=== PATIENT | female | born 1950 | race Caucasian/White ===

== ENCOUNTER 2019-09-13 12:46 | Inpatient (IN) | payer OTHER ==
--- OUTSIDE RECORDS SUMMARY | 2019-09-13 12:53 | XMS REPORT ---
:1950 [facility] Address [address] [place] [address] Dr. Mosley [address] [place] [id number] Care Team Providers Name Role Phone Unavailable Unavailable Unavailable Problems This patient has no known problems. Allergies, Adverse Reactions, Alerts This patient has no known allergies or adverse reactions. Medications This patient has no known medications.
[2019-09-13 13:34] VITALS: BMI 42.5
--- NOTE | 2019-09-13 14:05 | RAD REPORT ---
EXAM DESCRIPTION: RAD - Chest Single View - 09/13/2019 1:56 pm CLINICAL HISTORY: pre op, humerus fracture pending surgical repair TECHNIQUE: AP portable chest image was obtained 09/13/2019 1:56 pm . FINDINGS: Lungs are clear. Heart and vasculature are normal. No measurable pleural effusion and no p neumothorax. No acute bony abnormality seen. No acute aortic findings suspected. IMPRESSION: No acute cardiopulmonary process.
[2019-09-13 14:45] LABS: Absolute Lymphocytes (CBC) 1.4 K/uL (0.7-4.9); Basophils % 0.3 % (0-1.3); Lymphocytes % 15.8 % (15.3-44.8); RBC Red Blood Cell Count 3.55 M/uL (3.86-4.86)
[2019-09-13 14:54] LABS: Protime INR 1.56
[2019-09-13 14:59] LABS: Potassium 3.9 mmol/L (3.5-5.1)
[2019-09-13] MEDS: D5W 1,000 ML IV SCH (15:56)
[2019-09-13] MEDS ORDERED: CYCLOBENZAPRINE HCL PO PRN (16:58)
[2019-09-13] MEDS: HYDROCODONE/APAP 7.5/325 MG TAB PO SCH ×2 (17:00→20:30)
[2019-09-13] MEDS ORDERED: CYCLOBENZAPRINE 10 MG TAB PO PRN (17:41)
[2019-09-13] MEDS: CEFAZOLIN/SWI 1gm 1 GM/10 ML SYR IV SCH (18:01)
[2019-09-13] MEDS: TRAMADOL HCL 50 MG TAB PO SCH (20:30)
[2019-09-13] MEDS: ACEBUTOLOL HCL PO SCH (20:34)
[2019-09-13] MEDS: SILDENAFIL CITRATE 20 MG TABLET PO SCH (20:34)
--- NOTE | 2019-09-13 20:47 | CON ---
Date of Consultation: 09/13/[address] Durham's service on 09/13/2019. I saw the patient on 09/13/2019. Reason For Consultation: Cardiac clearance for humerus fracture. The surgery is to be done by Dr. Torsten becerra. History Of Present Illness: Ms. Morin is a 68-year-old woman. She normally sees Dr. Machado, has nolasco d a documented past medical history of severe pulmonary hypertension. She also has a history of hype rtension. She has had atrial fibrillation in the past that has resolved. Her last echocardiogram in August 2017, showed severe pulmonary hypertension. A right heart catheterization in 2014, showed rig ht ventricular systolic pressure of 90 mmHg. Patient has been placed on sildenafil 20 mg 3 times a d ay since 2014 and has done well, symptomatically speaking. Unfortunately, she has a humerus fracture that needs surgery. I was asked to clear her. She denied chest pain. Has baseline shortness of br eath. Denied PND, orthopnea, pedal edema, palpitations, or syncope. She has held her Xarelto since 1 p.m. yesterday. Allergies: SHE HAS ALLERGIES TO CODEINE AND BACTRIM. Review of Systems: Negative. Social History: Negative. Family History: Negative. Medications: Xanax, acebutolol, Lasix, Cozaar, Xarelto, and sildenafil. Physical Examination: Vital Signs: Blood pressure was 94/46, heart rate was 62. HEENT: Negative. Neck: Supple. No bruit. Chest: Clear. Cardiac: Revealed regular rhythm and rate, tricuspid regurgitation murmur. Abdomen: Benign. Extremities: Revealed no clubbing, cyanosis, or edema. Diagnostic Data: Hemoglobin was 10.2. Rest of the blood work seems to be unremarkable. Impression And Plan: A patient with severe pulmonary hypertension, last echocardiogram a year ago, w ould like to get another echocardiogram to see what her right ventricular systolic pressure is like. If she has severe pulmonary hypertension, she would be considered high risk for surgery, mostly from anesthesia and intubation. I will discuss the case further with Dr. Ferro and Dr. Durham. Her atrial fibrillation is well controlled. She is on Xarelto that has been held since 1 p.m. yesterday, preferred that she has had it held for about 48 hours prior to surgery. Her blood pressure is fairl y well controlled. She is only mildly anemic. We will continue to follow her. NEIL/DESMOND Voice ID: [id number] Report ID: [id number]
[2019-09-13] MEDS: ALPRAZOLAM 1 MG TABLET PO PRN (21:48)
[2019-09-14] MEDS: CEFAZOLIN/SWI 1gm 1 GM/10 ML SYR IV SCH ×3 (00:06→17:13)
[2019-09-14] MEDS: D5W 1,000 ML IV SCH ×3 (02:28→13:32)
[2019-09-14 04:34] LABS: Absolute Lymphocytes (CBC) 2.1 K/uL (0.7-4.9); Basophils % 0.6 % (0-1.3); Lymphocytes % 26.2 % (15.3-44.8); MPV 8.1 fL (7.6-11.3); RBC Red Blood Cell Count 3.01 M/uL (3.86-4.86)
[2019-09-14 04:42] LABS: Potassium 3.5 mmol/L (3.5-5.1)
[2019-09-14 05:30] LABS: Urine Appearance CLEAR; Urine Bilirubin NEGATIVE (NEG); Urine Blood NEGATIVE (NEG); Urine Color YELLOW; Urine Glucose NEGATIVE (NEG); Urine Protein NEGATIVE (NEG); Urine Urobilinogen 0.2 mg/dL (0.2-1.0)
[2019-09-14 05:33] LABS: Urine Microscopic Reflex ORDER UMIC
[2019-09-14 05:57] LABS: Urine Bacteria <20 /HPF (<20); Urine Culture Reflex Order REFLEXED; Urine RBC <5 /HPF (NONE SEEN)
[2019-09-14] MEDS: ACEBUTOLOL HCL PO SCH ×2 (09:00→21:00)
[2019-09-14] MEDS: GLUCOSAMINE HCL PO SCH (09:00)
[2019-09-14] MEDS ORDERED: HOME MED 1 EA UNK (Ascorbic Acid [Vitamin C] 1,000 MG) PO SCH (09:00)
[2019-09-14] MEDS: TRAMADOL HCL 50 MG TAB PO SCH ×3 (10:18→21:22)
[2019-09-14] MEDS: HYDROCODONE/APAP 7.5/325 MG TAB PO SCH ×4 (10:18→21:22)
[2019-09-14] MEDS: LOSARTAN POTASSIUM 50 MG TABLET PO SCH (10:19)
[2019-09-14] MEDS: FUROSEMIDE 40 MG TABLET PO SCH (10:19)
[2019-09-14] MEDS: SILDENAFIL CITRATE 20 MG TABLET PO SCH ×3 (10:19→21:00)
[2019-09-14] MEDS: ASCORBIC ACID 500 MG TABLET PO SCH (10:20)
--- NOTE | 2019-09-14 10:24 | ECHO ---
HEIGHT: 5 ft 1 in WEIGHT: 225 lb 0 oz DATE OF STUDY: 09/14/[address]: Harsha Israel MD 2-DIMENSIONAL: YES M.MODE: YES DOPPLER: YES COLOR FLOW: YES TDS: YES PORTABLE: NO DEFINITY: NO BUBBLE STUDY: NO DIAGNOSIS: CONGESTIVE HEART FAILURE, PUMONARY HYPERTENSION CARDIAC HISTORY: CATHERIZATION: NO SURGERY: NO PROSTHETIC VALVE: NO PACEMAKER: NO MEASUREMENTS (cm) DIASTOLIC (NORMALS) SYSTOLIC (NORMALS) IVSd 1.5 (0.6-1.2) LA Diam 4.0 (1.9-4.0) LVEF 64% LVIDd 3.7 (3.5-5.7) LVIDs 2.4 (2.0-3.5) %FS 34% LVPWd 1.3 (0.6-1.2) Ao Diam (2.0-3.7) 2 DIMENSIONAL ASSESSMENT: RIGHT ATRIUM: NORMAL LEFT ATRIUM: NORMAL RIGHT VENTRICLE: NORMAL LEFT VENTRICLE: LEFT VENTRICULAR HYPERTROPHY TRICUSPID VALVE: NORMAL MITRAL VALVE: NORMAL PULMONIC VALVE: NORMAL AORTIC VALVE: NORMAL PERICARDIAL EFFUSION: NONE AORTIC ROOT: NORMAL LEFT VENTRICULAR WALL MOTION: NORMAL DOPPLER/COLOR FLOW: MILD TRICUSPID REGURGITATION. RIGHT VENTRICULAR SYSTOLIC PRESSURE 50mmHg. COMMENTS: MODERATE PULMONARY HYPERTENSION. NORMAL LEFT VENTRICULAR FUNCTION. LEFT VENTRICULAR HYPERTROPHY. TECHNOLOGIST: Tommy BARRY
--- NOTE | 2019-09-14 11:36 | P.CNS ---
Date of Consult: 09/14/19 Reason for Consult: Preoperative clearance history of pulmonary hypertension Chief Complaint: Right elbow fracture History of Present Illness: Patient is 68 years of age well known to me with a history of pulmonary hypertension she has been on sildenafil for the past 7 years as been done very id and relatively well tolerated well the ambulatory apparently she fell and fractured her left elbow no x-ray reports in the system patient was seen at the [facility] dose emergency room according to the was sitting as does side she has considerably improved functional status has improved is not on any oxygen echocardiogram also seems to have improved there is no evidence of right ventricular dilatation patient is very apprehensive and does her tendency Allergies codeine Allergy (Verified 09/19/14 09:49) Itching sulfamethoxazole [From Bactrim] Allergy (Verified 09/19/14 09:48) Hives/Rash trimethoprim [From Bactrim] Allergy (Verified 09/19/14 09:48) Hives/Rash Home Medications: ALPRAZolam [Alprazolam] 1 tab PO TID PRN 09/13/19 Acebutolol HCl 1 cap PO BID 09/13/19 Ascorbic Acid [Vitamin C] 1,000 mg PO DAILY 09/13/19 Cyclobenzaprine HCl [Flexeril] 1 tab PO QID PRN 09/13/19 Furosemide 1 tab PO DAILY 09/13/19 Glucosamine HCl 1 tab PO DAILY 09/13/19 Hydrocodone/Acetaminophen [Hydrocodone-Acetamin 7.5-325] 1 tab PO QID 09/13/19 Losartan Potassium [Cozaar*] 1 tab PO DAILY 09/13/19 Rivaroxaban [Xarelto] 1 tab PO DAILY 09/13/19 Sildenafil Citrate [Revatio*] 1 tab PO TID 09/13/19 traMADol HCL [Ultram*] 2 tab PO TID 09/13/19 - Past Medical/Surgical History -: Pulmonary hypertension -: Atrial fibrillation - Social History Smoking Status: Never smoker Alcohol use: No CD- Drugs: No Caffeine use: No Review of Systems General: Weakness Musculoskeletal: Other, As per HPI (Patient also has discomfort in a left leg since the fall) Physical Examination Temp Pulse Resp BP Pulse Ox 97.3 F 67 18 120/60 96 09/14/19 08:00 09/14/19 10:19 09/14/19 10:18 09/14/19 10:19 09/14/19 10:18 General: Alert, Oriented x3 HEENT: Atraumatic Neck: Supple Cardiovascular: Edema, Irregular heart rate/rhythm Gastrointestinal: Normal bowel sounds, Soft and benign Musculoskeletal: Other (Patient's left arm in the sling is she has got a bruise in the left tibial region) Laboratory Data (last 24 hrs) 09/14/19 04:19: Sodium 139, Potassium 3.5, BUN 19 H, Creatinine 0.93, Glucose 111 H 09/14/19 04:19: WBC 8.1, Hgb 8.6 L, Hct 26.0 L D, Plt Count 170 09/13/19 14:34: Sodium 141, Potassium 3.9, BUN 21 H, Creatinine 0.92, Glucose 135 H 09/13/19 14:34: PT 18.2 H, INR 1.56, APTT 40.1 H 09/13/19 14:34: WBC 9.1 D, Hgb 10.2 L D, Hct 31.0 L D, Plt Count 204 - Problems (1) Pulmonary hypertension Current Visit: Yes Status: Acute Plan: Patient is 68 years of age had a fracture of the left elbow requiring surgical operation as far as her hemodynamics are consent she is really very stable requiring oxygen echocardiogram does not show right ventricular dilatation and finger pulmonary hypertension is improved over the past 7 years since I have seen her with sildenafil patient also has atrial fibrillation patient is mildly anemic otherwise labs unremarkable patient's chest x-rays clear I have discussed with the patient the presence of her I think she has moderate to high risk in view of for morbid obesity underlying AFib and pulmonary hypertension but she is very stable right now not requiring oxygen patient at baseline is ambulatory and has improved over the nurse I think she is stable to undergo surgery the general anesthesia at then local block discuss with Dr. Durham vital signs stable oxygenation satisfactory hold sildenafil until after these surgeries complete
[2019-09-14] MEDS: ALPRAZOLAM 1 MG TABLET PO PRN ×2 (11:42→21:23)
--- NOTE | 2019-09-14 12:25 | EKG ---
Test Date: 2019-09-13 Test Time: 15:27:54 Screedman: RAMSEY MEASUREMENT RESULTS: Intervals: Rate: 67 AK: QRSD: 92 QT: 446 QTc: 471 Stout: P: AK: QRS: 67 T: 114 INTERPRETIVE STATEMENTS: Atrial fibrillation RSR' or QR pattern in V1 suggests right ventricular conduction delay Nonspecific T wave abnormality, probably digitalis effect Prolonged QT Abnormal ECG Compared to ECG 09/19/2014 10:04:33 T-wave abnormality now present Prolonged QT interval now present Electronically Signed On 09-14-19 12:24:40 CDT by Harsha Israel
--- NOTE | 2019-09-14 14:03 | PN ---
Date of Progress Note: 09/13/2019 Subjective: I had seen Ms. Morin on 09/13/2019 for a cardiac clearance because of severe pulmonary hypertension. Patient had been taking sildenafil for approximately 5 years now. She had come in wit h a humerus fracture. Dr. Webb was awaiting our recommendation regarding surgery and clearance. She is asymptomatic from a cardiovascular standpoint. Echocardiogram, which was done today reveale d a right ventricular systolic pressure of 50 mmHg. The last one in 2014 that I knew of was 90 mmHg. This obviously puts her out of much lower risk for perioperative mortality. The case was discussed with Dr. Ferro. I think surgery will be proceeding today. We will continue to follow her. NEIL/DESMOND Voice ID: [id number] Report ID: [id number]
[2019-09-14] MEDS ORDERED: D5W 1,000 ML IV SCH (17:00)
[2019-09-15] MEDS: CEFAZOLIN/SWI 1gm 1 GM/10 ML SYR IV SCH ×3 (00:37→17:00)
[2019-09-15 05:45] LABS: Absolute Lymphocytes (CBC) 1.6 K/uL (0.7-4.9); Basophils % 0.3 % (0-1.3); Hematocrit 24.6 % (36.0-45.0); Lymphocytes % 19.2 % (15.3-44.8); MPV 7.9 fL (7.6-11.3); RBC Red Blood Cell Count 2.84 M/uL (3.86-4.86)
[2019-09-15 05:55] LABS: Potassium 3.5 mmol/L (3.5-5.1)
[2019-09-15] MEDS: HYDROCODONE/APAP 7.5/325 MG TAB PO SCH ×4 (08:43→21:24)
[2019-09-15] MEDS: GLUCOSAMINE HCL PO SCH (08:43)
[2019-09-15] MEDS: ASCORBIC ACID 500 MG TABLET PO SCH (08:43)
[2019-09-15] MEDS: LOSARTAN POTASSIUM 50 MG TABLET PO SCH (08:43)
[2019-09-15] MEDS: FUROSEMIDE 40 MG TABLET PO SCH (08:43)
[2019-09-15] MEDS: ACEBUTOLOL HCL PO SCH ×2 (08:43→21:00)
[2019-09-15] MEDS: SILDENAFIL CITRATE 20 MG TABLET PO SCH ×3 (08:43→21:26)
[2019-09-15] MEDS: TRAMADOL HCL 50 MG TAB PO SCH ×3 (08:43→21:25)
[2019-09-15] MEDS ORDERED: LIDOCAINE 1% MPF 5 ML VIAL ONE (12:11)
[2019-09-15] MEDS ORDERED: FENTANYL CITR 100 MCG/2 ML ONE (12:11)
[2019-09-15] MEDS ORDERED: ETOMIDATE 20 MG/10 ML VIAL IV ONE (12:11)
[2019-09-15] MEDS ORDERED: Ringers Lactate 1,000 ML IV ONE (12:17)
[2019-09-15] MEDS ORDERED: CEFAZOLIN/SWI 1gm 1 GM/10 ML SYR ONE (12:36)
--- NOTE | 2019-09-15 13:01 | PN ---
Ms. Morin has a history of severe pulmonary hypertension, has been cared for by Dr. Ferro and Dr. Machado in the past. She came in with a humeral fracture on the left side. Echocardiogram, which wa s done yesterday, showed a right ventricular systolic pressure of 50 mmHg, which has improved dramati marixa from her initial 90 mmHg about 4 years ago. She takes sildenafil. I discussed the case with Marietta Ferro and apparently there is a consensus for her to go to surgery. She has not gone through s urgery yet. No cardiopulmonary symptoms. She continues to have left elbow pain. Apparently, there is a plan to go to surgery today under local axillary block and we will continue to follow her afterw ards. NEIL/DESMOND Voice ID: [id number] Report ID: [id number]
[2019-09-15] MEDS ORDERED: propofoL 200 MG/20 ML VIAL IV ONE (13:27)
[2019-09-15] MEDS ORDERED: ONDANSETRON 4 MG/2 ML VIAL ONE (14:03)
--- NOTE | 2019-09-15 14:28 | P.BOP ---
Preoperative diagnosis: left distal humerus open fracture (delayed rx) Postoperative diagnosis: same Primary procedure: I&D of open distal humerus fracture Estimated blood loss: 20ccs Anesthesia: General Complications: None Transferred to: Recovery Room
[2019-09-15] MEDS: MORPHINE 4 MG/ML SYR ONE ×7 (14:54→15:35)
[2019-09-15] MEDS ORDERED: PROMETHAZINE INJ 25 MG/ML AMP ONE (15:03)
--- NOTE | 2019-09-15 20:06 | PN ---
Date of Progress Note: 09/15/2019 The patient is seen in the postoperative period. When seen back in the room, seems to be quite comfo rtable. Vital signs are stable. Atrial fibrillation rhythm with controlled rate. We will hold the Xarelto until the a.m. and see if her H and H are stabilized. Continue to monitor. HR/MODL Voice ID: [id number] Report ID: [id number]
--- NOTE | 2019-09-15 21:00 | HP ---
Date of Admission: 09/13/2019 Chief Complaint: Fractured arm, open. History Of Present Illness: Patient fell at home, was taken to a local urgent care. Immediate repai r and closure were done since it was an open wound. It was felt she would need more intensive care a nd suggested she go to . Patient declined and opted to go locally. She was then seen by h orthopedic surgeon, who called me and felt that she would require surgical repair due to her under lying conditions, requested clearances. Past Medical History: Patient has had significant pulmonary hypertension over the past 5 or 6 years, has been treated by both Pulmonology and Cardiology for this, and associated with hypertension and a trial fibrillation. The latter has been cleared. She has been on for a number of years n ow and has been relatively stable. According to the patient's , however, she had a moderate a mount of bleeding at the time of the recent trauma. The pulmonary hypertension will be re-evaluated prior to the surgical procedure. Blood pressure has been relatively stable on various medications. Social History: Nonsmoker, nondrinker. Family History: Noncontributory. Physical Examination: General: Patient is a rather obese elderly female, in mild distress with her arm in a sling and prot ective splint. Vital Signs: Stable. Head and Neck: Normocephalic. Pupils equally reactive to light and accommodation. Fundi negative. Trachea midline. Thyroid not palpable. ENT: Negative. Chest: Clear to P and A. Cardiovascular: PMI midclavicular line. Heart sounds normal. Peripheral pulses are present and equal bilaterally. Abdomen: No organomegaly. Bowel sounds present. Extremities: As mentioned, the left arm is in a splint. Lower extremities are normal. Rectal/Pelvic: Deferred. Impression: 1.Fractured humerus, open wound. 2.Hypertension, controlled. 3.Atrial fibrillation, controlled. 4.Pulmonary hypertension, medicated. Plan: Patient will be admitted, placed on IV fluids. Consultation was obtained with both Cardiology and Pulmonology and depending on their evaluation, the patient will probably be cleared for surgery the next day or so since she Xarelto for at least 24-48 hours. She was also seen by ortho pedic surgeon while in the hospital. HR/MODL Voice ID: [id number]
--- NOTE | 2019-09-15 21:07 | PN ---
Date of Progress Note: 09/14/2019 Patient states she is somewhat comfortable on her pain regimen. Hemoglobin has dropped some and she did look rather pale. However, I think her baseline is in the 10 range and possibly secondary to blo od loss dropped down to the 8+ range. She was seen by Cardiology. Echo was done. The pulmonary hyp ertension has marked improvement, even though she is at risk obviously. The repair I think supersede s the risk factor at this time. This is also confirmed by Pulmonology. She will therefore be someti me during the day at least for the surgical repair by Dr. Webb. HR/MODL Voice ID: [id number] Report ID: [id number]
[2019-09-15] MEDS: ALPRAZOLAM 1 MG TABLET PO PRN (21:25)
--- NOTE | 2019-09-15 21:43 | OP ---
Date of Procedure: 09/15/2019 Surgeon: See Webb MD Preoperative Diagnosis: Left complex intra-articular distal humerus fracture, which is open with del ayed treatment. Postoperative Diagnosis: Left complex intra-articular distal humerus fracture, which is open with de layed treatment. Procedure: Left distal humerus open fracture irrigation and sharp debridement including knife, sciss ors, rongeurs. Estimated Blood Loss: 20 cc. Complications: No complications. Specimens: No pathology specimens. Indications For Operation: Ms. Morin is a 68-year-old female who unfortunately has a great number o f medical conditions. She was seen and examined in the outside emergency facility where she was diag nosed with open distal humerus fracture. The advise was for her to go immediately to a tertiary care center for irrigation and debridement and treatment of the fracture. Patient's family did not agree with this plan and decided instead to have this sewn and place in a splint and follow up with an ort hopedist. She came to see me the next day with her x-rays and her elbow was examined as well as her x-rays, which demonstrated a comminuted intra-articular distal humerus fracture consistent with a sup racondylar and intercondylar fracture. Also, there was active bleeding from her posterolateral aspec t of her arm indicating an open fracture. I discussed with her that this problem is gently treated o peratively, may be considered an urgent or emergent process. She says that she understands this, but she has had a spinning mule tender and a pier master who told her that if she had ever gone to sleep that she would not be able to wake up and that she did not want an operation of any kind. I asked her if we could speak with those physicians, she says that one is retired and the other she does not know, b ut she does have a primary care physician in the area and he is called. At this time, decided to adm it her, take her off her blood thinners, and have Cardiology see her with whatever testing is due for possibility of irrigation and debridement of her elbow. This is what has happened. She has since b een cleared, seen by Anesthesia, also by Pulmonology, Cardiology, and her primary care physician. Al l risks, benefits, and alternatives of this procedure have been discussed with her. We did discuss f urther, but not attempt any reduction or fixation of the fracture and that our goal at this time is t o do good irrigation and debridement. If she does not get infected and is continuing to be a problem , she may be able to move forward with total elbow in the future; however, having an open fracture fo r 3 days and then placing until the elbow is probably not the until we can ensure that she has not developed any osteomyelitis. She says she understands things and presented. Description Of Procedure: Patient was taken to operating room, placed in supine position. General a nesthesia was obtained by Anesthesia staff. Following this, she was then rolled right side down on a witt bag. Her left upper extremity was then prepped and draped in usual sterile fashion procedure. Following this, her sutures were removed that she had placed. There were also some Vicryl sutures m ore deeply. Once these were removed, approximately 1 L of sterile saline was used just superficially on the wound. Finger was then placed in the wound and the fracture was easily identified. The ends of the open wound were then extended to allow for best visualization. Debridement was undertaken us ing a rongeur, knife and any blood clot or any foreign appearing material was removed. This was foll owed by further irrigation more deeply in the wound bed in the region of the intra-articular portion of the elbow. Following this, the wound edges were trimmed and it was then closed using nylon suture s. Patient was then placed in extremely well-padded sterile dressing as well as posterior splint. S he was awakened, taken to recovery room in good condition. No complications. SE/MODL Voice ID: [id number] Report ID: [id number]
[2019-09-16] MEDS: CEFAZOLIN/SWI 1gm 1 GM/10 ML SYR IV SCH ×3 (00:31→17:25)
[2019-09-16 05:23] LABS: Absolute Lymphocytes (CBC) 1.4 K/uL (0.7-4.9); Lymphocytes % 16.4 % (15.3-44.8); MPV 7.8 fL (7.6-11.3); RBC Red Blood Cell Count 2.62 M/uL (3.86-4.86)
[2019-09-16 05:41] LABS: BUN Blood Urea Nitrogen 13 mg/dL (7-18); Bicarbonate 34 mmol/L (21-32); Glucose Level 94 mg/dL (74-106); Potassium 3.8 mmol/L (3.5-5.1); Sodium Level 143 mmol/L (136-145)
[2019-09-16] MEDS: ACEBUTOLOL HCL PO SCH ×2 (09:00→21:00)
[2019-09-16] MEDS: GLUCOSAMINE HCL PO SCH (09:00)
[2019-09-16] MEDS: HYDROCODONE/APAP 7.5/325 MG TAB PO SCH ×4 (09:23→21:05)
[2019-09-16] MEDS: SILDENAFIL CITRATE 20 MG TABLET PO SCH ×3 (09:24→21:06)
[2019-09-16] MEDS: FUROSEMIDE 40 MG TABLET PO SCH (09:24)
[2019-09-16] MEDS: TRAMADOL HCL 50 MG TAB PO SCH ×3 (09:24→21:05)
[2019-09-16] MEDS: ASCORBIC ACID 500 MG TABLET PO SCH (09:24)
[2019-09-16] MEDS: LOSARTAN POTASSIUM 50 MG TABLET PO SCH (09:25)
[2019-09-16] MEDS ORDERED: NA CHLORIDE 0.9% 250 ML ONE (11:44)
--- NOTE | 2019-09-16 12:43 | P.PN ---
Subjective Date of Service: 09/16/19 Chief Complaint: Right elbow fracture Subjective: Improving (Patient is doing better currently receiving a blood transfusion status post surgery of the left elbow) Review of Systems General: Weakness Respiratory: Shortness of Breath Physical Examination - Vital Signs Temperature: 97.4 F Blood Pressure: 125/58 Pulse: 78 Respirations: 18 Pulse Ox (%): 99 - Physical Exam General: Alert, In no apparent distress, Oriented x3 Respiratory: Clear to auscultation bilaterally, Diminished Cardiovascular: Normal pulses, Normal S1 S2 - Studies Laboratory Data (last 24 hrs) 09/16/19 : Hgb Cancelled 09/16/19 17:00: Hgb Cancelled, Hct Cancelled 09/16/19 05:07: Sodium 143, Potassium 3.8, BUN 13, Creatinine 0.65, Glucose 94 09/16/19 05:07: WBC 8.2, Hgb 7.6 L*, Hct 23.0 L, Plt Count 185 Microbiology Data (last 24 hrs): 09/14/19 05:00 Clean Catch Urine Carpio Count - Final 09/14/19 05:00 Clean Catch Urine - Final No growth. Assessment & Plan - Problems (Diagnosis) (1) Pulmonary hypertension Current Visit: Yes Status: Acute Plan: Patient is status post surgery doing much better seeing a blood transfusion Francesca some tenderness in the left elbow region resume sildenafil hemodynamically stable
[2019-09-16 15:16] LABS: Hematocrit 24.8 % (36.0-45.0)
[2019-09-16] MEDS: ALPRAZOLAM 1 MG TABLET PO PRN (21:05)
[2019-09-17] MEDS: CEFAZOLIN/SWI 1gm 1 GM/10 ML SYR IV SCH ×2 (00:59→01:00)
[2019-09-17] MEDS ORDERED: CEPHALEXIN 250 MG CAP PO SCH (01:19)
[2019-09-17] MEDS: HYDROCODONE/APAP 7.5/325 MG TAB PO SCH ×5 (05:40→20:21)
[2019-09-17] MEDS: ASCORBIC ACID 500 MG TABLET PO SCH (08:27)
[2019-09-17] MEDS: CEPHALEXIN 500 MG CAP PO SCH ×3 (08:27→20:21)
[2019-09-17] MEDS: LOSARTAN POTASSIUM 50 MG TABLET PO SCH (08:27)
[2019-09-17] MEDS: TRAMADOL HCL 50 MG TAB PO SCH ×3 (08:27→20:20)
[2019-09-17] MEDS: FUROSEMIDE 40 MG TABLET PO SCH (08:29)
[2019-09-17] MEDS: SILDENAFIL CITRATE 20 MG TABLET PO SCH ×3 (08:34→20:22)
[2019-09-17] MEDS: ACEBUTOLOL HCL PO SCH (09:00)
[2019-09-17] MEDS: GLUCOSAMINE HCL PO SCH (09:00)
--- NOTE | 2019-09-17 09:39 | PN ---
Date of Progress Note: 09/16/2019 History: The patient has had a drop in her hemoglobin once again to 7.6 earlier this morning. We th erefore felt she would benefit from a unit of blood. This was obtained, however, there was marked di fficulty with access and approximately 50 mL were injected prior to the transfusion being stopped as there was no further flow. However, the IV antibiotic could still be given in a flush. The possibil ity of a PICC line was considered. However, the H and H was repeated later in the day and was 8.1 __ in the morning when it will be repeated and then we can decide about both the PICC line and use of the Xarelto once again. Discussion was held on both these points with Cardiology and Pulmonol wil and it was agreed to wait until the morning. The only other issue developed is significant disco mfort and lack of ability to mobilize her left knee as it looked cellulitic and a marked amount of bl ood involved in this area as well. Also attributing, I think to drop in the blood count. She will b e re-evaluated and decision will be made based on her H and H in the morning. The remainder of her v ital signs are stable. Her telemetry shows atrial fibrillation with controlled rate. HR/MODL Voice ID: [id number] Report ID: [id number]
[2019-09-17] MEDS ORDERED: BISACODYL 10 MG RECTAL SUPP PR ONE ×2 (09:44→23:00)
--- NOTE | 2019-09-17 10:27 | RAD REPORT ---
EXAM DESCRIPTION: RAD - Tib Fib Left - 09/17/2019 10:18 am CLINICAL HISTORY: trauma COMPARISON: No comparisons FINDINGS: Soft tissue hematoma is present in the calf region. No fracture apparent.
--- NOTE | 2019-09-17 10:27 | RAD REPORT ---
EXAM DESCRIPTION: RAD - Knee Left 2 View - 09/17/2019 10:16 am CLINICAL HISTORY: trauma Trauma, swelling COMPARISON: Tib Fib Left dated 09/17/2019 FINDINGS: Advanced osteoarthritic changes are present involving the left knee. Soft tissue swelling is present anterior to the tibia. No fracture is evident.
--- NOTE | 2019-09-17 10:47 | RAD REPORT ---
EXAM DESCRIPTION: US - Extremity Venous Uni Ltd - 09/17/2019 10:39 am CLINICAL HISTORY: r/o dvt Leg swelling and edema. COMPARISON: No comparisons FINDINGS: Left lower extremity venous system was interrogated with Doppler technique. Normal flow, c ompressibility and augmentation was noted. There is no DVT present. IMPRESSION: No evidence of left lower extremity deep venous thrombosis.
[2019-09-17] MEDS: ALPRAZOLAM 1 MG TABLET PO PRN (10:55)
[2019-09-17 17:08] LABS: Hematocrit 24.6 % (36.0-45.0)
--- NOTE | 2019-09-17 18:05 | RAD REPORT ---
EXAM DESCRIPTION: RAD - Abdomen 1 View (KUB) - 09/17/2019 5:32 pm CLINICAL HISTORY: Abdomen pain. FINDINGS: The bowel gas pattern is unremarkable. A moderate amount of stool is present throughout th e colon No abnormal calcification is displayed
[2019-09-17] MEDS ORDERED: BISACODYL E.C. 5 MG TAB PO ONE (19:00)
[2019-09-18 06:56] LABS: Hematocrit 23.3 % (36.0-45.0)
[2019-09-18] MEDS ORDERED: ONDANSETRON 4 MG (ODT) TAB PO PRN (07:35)
[2019-09-18] MEDS ORDERED: GOLYTELY 4000 ML PO SCH (08:00)
[2019-09-18] MEDS: CEPHALEXIN 500 MG CAP PO SCH ×2 (08:40→13:24)
[2019-09-18] MEDS: TRAMADOL HCL 50 MG TAB PO SCH ×2 (08:41→13:24)
[2019-09-18] MEDS: HYDROCODONE/APAP 7.5/325 MG TAB PO SCH ×2 (08:41→13:24)
[2019-09-18] MEDS: ASCORBIC ACID 500 MG TABLET PO SCH (08:42)
[2019-09-18] MEDS: SILDENAFIL CITRATE 20 MG TABLET PO SCH (08:42)
[2019-09-18] MEDS ORDERED: BISACODYL E.C. 5 MG TAB PO PRN (09:00)
[2019-09-18] MEDS: GLUCOSAMINE HCL PO SCH (09:00)
[2019-09-18] MEDS: LOSARTAN POTASSIUM 50 MG TABLET PO SCH (10:05)
[2019-09-18] MEDS: FUROSEMIDE 40 MG TABLET PO SCH (10:08)
[2019-09-18 10:47] VITALS: O2SAT 93
[2019-09-18 11:42] VITALS: BP 97/49; TEMP 97.1
--- NOTE | 2019-09-18 12:10 | P.PN ---
Subjective Date of Service: 09/18/19 Chief Complaint: Right elbow fracture Subjective: Improving (Patient is improving hr she does have a large hematoma in the left tibial area which counts for decline in her hemoglobin difficult to obtain any venous access) Review of Systems General: Weakness Respiratory: Shortness of Breath Musculoskeletal: Leg Pain (Some pain in the of hematoma) Physical Examination - Vital Signs Temperature: 97.1 F Blood Pressure: 97/49 Pulse: 66 Respirations: 17 Pulse Ox (%): 94 - Physical Exam General: Alert, In no apparent distress, Oriented x3 Respiratory: Clear to auscultation bilaterally Cardiovascular: Irregular heart rate/rhythm Gastrointestinal: Normal bowel sounds, Soft and benign Musculoskeletal: Other (Large area of hematoma in the left tibial region and tone think it is progressing) - Studies Laboratory Data (last 24 hrs) 09/18/19 06:40: Hgb 7.8 L*, Hct 23.3 L 09/17/19 17:00: Hgb 8.1 L, Hct 24.6 L 09/17/19 17:00: Hct Cancelled Microbiology Data (last 24 hrs): 09/18/19 08:24 Stool Occult Blood - Final Assessment & Plan - Problems (Diagnosis) (1) Pulmonary hypertension Current Visit: Yes Status: Acute Plan: Patient is stable over patient is hypotensive Dc losartan Lasix and sildenafil for now she is at risk for falling due to low blood pressure (2) Atrial fibrillation Current Visit: Yes Status: Acute Plan: Xarelto is on hold discuss with cardiology regarding starting her on some aspirin been a decline in her hemoglobin which seems to be stable Qualifiers: Atrial fibrillation type: unspecified chronic Qualified Code(s): I48.20 - Chronic atrial fibrillation, unspecified; I48.2 - Chronic atrial fibrillation
[2019-09-18 13:05] LABS: Hematocrit 24.3 % (36.0-45.0)
[2019-09-18] MEDS: ALPRAZOLAM 1 MG TABLET PO PRN (13:24)
[2019-09-19] MEDS ORDERED: ASPIRIN 81 MG CHEWABLE TABLET PO SCH (09:00)
--- NOTE | 2019-09-19 14:32 | PN ---
Date of Progress Note: 09/17/2019 Subjective: The patient stabilizes as far as her general condition is concerned. However, there are some of her issues that need to be clarified prior to being discharged. The patient and family requ est at time the discharge, to return home. I think this is reasonable, providin.Her H and H remained stable along the 8 range. 2.She does finally have a bowel movement as she has been constipated and the KUB showed significant stool present. 3.She can restart her anticoagulants. We will follow this up with a plan for her constipation, repeat her H and H, and obtain a stool guaia c. If this is negative, I see no reason why she cannot be discharged probably in the a.m. HR/MODL Voice ID: [id number] Report ID: [id number]
--- NOTE | 2019-09-19 14:38 | PN ---
Date of Progress Note: 09/19/2019 Subjective: The patient has had 2 units of blood. States she does not feel that much better; dilan r, her coloring is obviously much better. I will leave the Boone in. She has some difficulty with m ovement at the present time and the hematoma, which according to the family has gone down somewhat, i s still limiting her motion considerably as well as the shoulder surgery. There was some difficulty in setting up a disposition program. I spent a good amount of time talking to her as far as his options are concerned. Meter Repairer will also be involved. At the present time, her vital si gns are stable. The pain medication regimen will be changed to what he is accustomed to giving her p rior to this surgery. She has been on this protocol for a long time and he states it has given her g ood results. The probability of a fall being secondary to the combination of the anemia and position al change is most likely. In order to prevent this, we will continue the present regimen with a burrell ge of analgesics and re-evaluate in the a.m. as far as blood pressure medication and the diuretics ar e concerned. HR/MODL Voice ID: [id number] Report ID: [id number]
== END 2019-09-18 15:13 | disposition home or self-care (01) | DRG 563 ==
LOC: 2ND 12:51
PROVIDERS: ADMIT Family Medicine; ATTEND Family Medicine
PROC: 0HDEXZZ Extraction of Left Lower Arm Skin, External Approach (ICD-10-PCS; principal; 2019-09-15 13:00)
PROC: 30233N1 Transfusion of Nonautologous Red Blood Cells into Peripheral Vein, Percutaneous Approach (ICD-10-PCS; 2019-09-16)
DX: S42.402A Unspecified fracture of lower end of left humerus, initial encounter for closed fracture (principal); I48.20 Chronic atrial fibrillation, unspecified; I10 Essential (primary) hypertension; I27.20 Pulmonary hypertension, unspecified; Z79.01 Long term (current) use of anticoagulants; Z79.899 Other long term (current) drug therapy; Z88.5 Allergy status to narcotic agent; Z88.1 Allergy status to other antibiotic agents; W18.30XA Fall on same level, unspecified, initial encounter
CPT/HCPCS: 36415; 71045; 74018; 80048; 81003; 81015; 82274; 85014; 85018; 85025; 85610; 85730; 86850; 86900; 86901; 87086; 87088; 93005; 93306; 93971; 97161; 97530; J0690; J2405; J2550; J2704; J3010; J7030; J7120; P9016

== ENCOUNTER 2019-09-18 18:15 | Inpatient (IN) | payer OTHER ==
--- OUTSIDE RECORDS SUMMARY | 2019-09-18 18:18 | XMS REPORT ---
:1950 [facility] Address [address] [place] [address] Dr. Mosley [address] [place] [id number] Care Team Providers Name Role Phone Unavailable Unavailable Unavailable Problems This patient has no known problems. Allergies, Adverse Reactions, Alerts This patient has no known allergies or adverse reactions. Medications This patient has no known medications.
[2019-09-18] MEDS ORDERED: PANTOPRAZOLE 40 MG INJ ONE (18:50)
[2019-09-18] MEDS ORDERED: NA CHLORIDE 0.9% 1,000 ML ONE (18:50)
--- NOTE | 2019-09-18 19:04 | EDPHYS ---
Physician Documentation [facility] Name: Kati Morin Age: 68 yrs Sex: Female : 1950 Arrival Date: 09/18/2019 Time: 18:14 Bed 15 Private MD: ED Physician Td Patricio HPI: 09/17 18:42 This 68 yrs old Female presents to ER via EMS with complaints of Fall Injury. prachi 18:42 This 68 yrs old Female presents to ER via EMS with complaints of Fall Injury. prachi Historical: - Allergies: 18:21 Codeine; bp 18:21 sulfamethoxazole-trimethoprim; bp - Home Meds: 18:30 Lasix 20 mg Oral tab 1 tab once daily [Active]; alprazolam 1 mg Oral tab 1 tab 3 times bp per day [Active]; acebutolol 200 mg Oral cap 1 cap 2 times per day [Active]; ascorbic acid (vitamin C) 1,000 mg tab [Active]; Flexeril 10 mg Oral tab 1 tab 3 times per day [Active]; Glucosamine 500 mg oral tab [Active]; [place] 7.5-325 mg Oral tab 1 tab every 6 hours [Active]; losartan 50 mg oral tab 1 tab once daily [Active]; rivaroxaban oral oral 1 tab [Active]; Revatio 20 mg oral tab 1 tab 3 times per day [Active]; - PMHx: 18:30 Hypertension; bp 18:38 Atrial Fib; bp - Immunization history:: Adult Immunizations up to date. - Social history:: Smoking status: Patient denies any tobacco usage or history of. ROS: 18:45 Constitutional: Negative for fever, chills, and weight loss, Eyes: Negative for injury, prachi pain, redness, and discharge, ENT: Negative for injury, pain, and discharge, Neck: Negative for injury, pain, and swelling, Cardiovascular: Negative for chest pain, palpitations, and edema, Abdomen/GI: Negative for abdominal pain, nausea, vomiting, diarrhea, and constipation, Back: Negative for injury and pain, : Negative for injury, bleeding, discharge, and swelling, Skin: Negative for injury, rash, and discoloration, Psych: Negative for depression, anxiety, suicide ideation, homicidal ideation, and hallucinations, Allergy/Immunology: Negative for hives, rash, and allergies, Endocrine: Negative for neck swelling, polydipsia, polyuria, polyphagia, and marked weight changes, Hematologic/Lymphatic: Negative for swollen nodes, abnormal bleeding, and unusual bruising. 18:45 Respiratory: Positive for shortness of breath. 18:45 MS/extremity: Positive for decreased range of motion, pain, tenderness, of the anterior aspect of right shoulder and posterior aspect of right shoulder. Exam: 18:45 Constitutional: This is a well developed, well nourished patient who is awake, alert, prachi and in no acute distress. Head/Face: Normocephalic, atraumatic. Eyes: Pupils equal round and reactive to light, extra-ocular motions intact. Lids and lashes normal. Conjunctiva and sclera are non-icteric and not injected. Cornea within normal limits. Periorbital areas with no swelling, redness, or edema. ENT: Nares patent. No nasal discharge, no septal abnormalities noted. Tympanic membranes are normal and external auditory canals are clear. Oropharynx with no redness, swelling, or masses, exudates, or evidence of obstruction, uvula midline. Mucous membranes moist. Neck: Trachea midline, no thyromegaly or masses palpated, and no cervical lymphadenopathy. Supple, full range of motion without nuchal rigidity, or vertebral point tenderness. No Meningismus. Chest/axilla: Normal chest wall appearance and motion. Nontender with no deformity. No lesions are appreciated. Cardiovascular: Regular rate and rhythm with a normal S1 and S2. No gallops, murmurs, or rubs. Normal PMI, no JVD. No pulse deficits. Abdomen/GI: Soft, non-tender, with normal bowel sounds. No distension or tympany. No guarding or rebound. No evidence of tenderness throughout. Back: No spinal tenderness. No costovertebral tenderness. Full range of motion. Skin: Warm, dry with normal turgor. Normal color with no rashes, no lesions, and no evidence of cellulitis. MS/ Extremity: Pulses equal, no cyanosis. Neurovascular intact. Full, normal range of motion. Neuro: Awake and alert, GCS 15, oriented to person, place, time, and situation. Cranial nerves II-XII grossly intact. Motor strength 5/5 in all extremities. Sensory grossly intact. Cerebellar exam normal. Normal gait. Psych: Awake, alert, with orientation to person, place and time. Behavior, mood, and affect are within normal limits. 18:45 Respiratory: mild respiratory distress is noted, Respirations: labored breathing, that is mild, Breath sounds: decreased breath sounds, that are mild. 18:45 Musculoskeletal/extremity: Extremities: noted in the anterior aspect of right shoulder and posterior aspect of right shoulder: decreased ROM, pain, swelling, noted in the left chávez: pain, swelling, tenderness. Vital Signs: 18:15 BP 106 / 60; Pulse 95; Resp 18; Temp 98.5; Pulse Ox 94% on R/A; bp 20:07 BP 118 / 57; Pulse 78; Resp 13; Temp 98; Pulse Ox 100% on 3 lpm NC; rr5 20:45 BP 122 / 69; Pulse 77; Resp 18; Temp 98; Pulse Ox 99% on 3 lpm NC; rr5 Procedures: 19:47 Peripheral line: by aseptic technique a peripheral line was placed in the left external prachi jugular vein. MDM: 18:20 Patient medically screened. [facility] 19:38 ED course: dr lynch ask to hold the xarelto. [facility] 19:38 Data reviewed: vital signs, nurses notes, lab test result(s), EKG, radiologic studies, [facility] CT scan, plain films. 09/17 18:42 Order name: Basic Metabolic Panel; Complete Time: 19:36 [facility] 09/17 18:42 Order name: CBC with Diff; Complete Time: 19:26 [facility] 09/17 18:42 Order name: LFT's; Complete Time: 19:36 [facility] 09/17 18:42 Order name: Magnesium; Complete Time: 19:36 [facility] 09/17 18:42 Order name: NT PRO-BNP; Complete Time: 19:36 [facility] 09/17 18:42 Order name: PT-INR; Complete Time: 19:26 [facility] 09/17 18:42 Order name: Troponin (emerg Dept Use Only); Complete Time: 19:36 [facility] 09/17 18:42 Order name: XRAY Chest (1 view); Complete Time: 19:26 [facility] 09/17 18:42 Order name: Lipase; Complete Time: 19:36 [facility] 09/17 18:42 Order name: Urine Culture [facility] 09/17 18:42 Order name: Type And Screen [facility] 09/17 19:34 Order name: Urine Dipstick--Ancillary (enter results) ks 09/17 19:48 Order name: Urine Dipstick-Ancillary; Complete Time: 19:49 [facility] 09/17 18:42 Order name: EKG; Complete Time: 18:44 [facility] 09/17 18:42 Order name: Cardiac monitoring; Complete Time: 19:30 [facility] 09/17 18:42 Order name: EKG - Nurse/Tech; Complete Time: 20:42 [facility] 09/17 18:42 Order name: IV Saline Lock; Complete Time: 20:42 [facility] 09/17 18:42 Order name: Labs collected and sent; Complete Time: 20:42 [facility] 09/17 18:42 Order name: O2 Per Protocol; Complete Time: 20:42 [facility] 09/17 18:42 Order name: Shoulder Right (2 View) XRAY; Complete Time: 19:26 [facility] 09/17 18:43 Order name: CT Traumagram (Head C Spine CAP wo con) [facility] 09/17 19:07 Order name: CONS Physician Consult [facility] 09/17 20:21 Order name: CT; Complete Time: 21:56 [facility] 09/17 18:42 Order name: O2 Sat Monitoring; Complete Time: 20:42 [facility] 09/17 18:42 Order name: Urine Dipstick-Ancillary (obtain specimen); Complete Time: 19:30 [facility] 09/17 18:42 Order name: Boone; Complete Time: 19:29 [facility] 09/17 19:27 Order name: Sling; Complete Time: 20:41 [facility] 09/17 19:27 Order name: Ice pack; Complete Time: 20:40 [facility] Administered Medications: Discontinued: NS 0.9% 1000 ml IV at 75 ml/hr continuous 18:45 Drug: NS 0.9% 1000 ml Route: IV; Rate: 75 ml/hr; Site: left jugular; bp 19:30 Follow up: Response: No adverse reaction; IV Status: Order to discontinue infusion; IV rr5 Intake: 75ml 18:45 Drug: ProTONIX 40 mg Route: IVP; Site: left jugular; bp 19:45 Follow up: Response: No adverse reaction rr5 20:20 Drug: Lovenox 40 mg Route: Sub-Q; Site: right lower abdomen; rr5 20:43 Follow up: Response: No adverse reaction rr5 20:21 Drug: Aspirin 162 mg Route: PO; rr5 20:43 Follow up: Response: No adverse reaction rr5 20:32 Drug: Lasix 40 mg {Note: left EJ.} Route: IVP; Site: Other; rr5 20:44 Follow up: Response: No adverse reaction rr5 20:35 Drug: Ancef 1 grams {Note: left EJ.} Route: IVPB; Site: Other; rr5 20:43 Follow up: Response: No adverse reaction; IV Status: Completed infusion; IV Intake: rr5 10ml ; transfer to floor Disposition: 09/18/19 19:03 Hospitalization ordered by Elroy Lynch for Inpatient Admission. Preliminary diagnosis are Fall due to bumping against object, Obesity, unspecified, Dyspnea, Pain in right shoulder, Contusion of left lower leg - large cutaneous hematoma, Atrial fibrillation and flutter, Anemia, unspecified, Nondisplaced fracture of greater tuberosity of right humerus, Unspecified combined systolic (congestive) and diastolic (congestive) heart failure, Hypoxemia, Primary pulmonary hypertension. - Bed requested for Telemetry/MedSurg (Inpatient). - Status is Inpatient Admission. rr5 - Condition is Fair. - Problem is new. - Symptoms have improved. Signatures: Dispatcher [employer] [facility] Laurie Edwards RN RN dw Anderson, Corey, MD MD cha Nieto, Roman, MD MD rn Peltier, Brian RN To Lane RN RN rr5 Corrections: (The following items were deleted from the chart) 19:13 18:44 Head C Spine MPR Wo Con+CT.RAD.BRZ ordered. [facility] 19:25 19:03 Hospitalization Ordered by Elroy Lynch MD for Inpatient Admission. Preliminary prachi diagnosis is Fall due to bumping against object; Obesity, unspecified; Dyspnea; Pain in right shoulder; Contusion of left lower leg - large cutaneous hematoma; Aplastic anemia, unspecified; Atrial fibrillation and flutter. Bed requested for Telemetry/MedSurg (Inpatient). Status is Inpatient Admission. Condition is Fair. Problem is new. Symptoms have improved. prachi 19:26 19:25 09/18/2019 19:03 Hospitalization Ordered by Elroy Lynch MD for Inpatient prachi Admission. Preliminary diagnosis is Fall due to bumping against object; Obesity, unspecified; Dyspnea; Pain in right shoulder; Contusion of left lower leg - large cutaneous hematoma; Atrial fibrillation and flutter; Anemia, unspecified; Nondisplaced fracture of greater tuberosity of right humerus. Bed requested for Telemetry/MedSurg (Inpatient). Status is Inpatient Admission. Condition is Fair. Problem is new. Symptoms have improved. prachi 19:29 19:26 09/18/2019 19:03 Hospitalization Ordered by Elroy Lynch MD for Inpatient dw Admission. Preliminary diagnosis is Fall due to bumping against object; Obesity, unspecified; Dyspnea; Pain in right shoulder; Contusion of left lower leg - large cutaneous hematoma; Atrial fibrillation and flutter; Anemia, unspecified; Nondisplaced fracture of greater tuberosity of right humerus; Unspecified combined systolic (congestive) and diastolic (congestive) heart failure. Bed requested for Telemetry/MedSurg (Inpatient). Status is Inpatient Admission. Condition is Fair. Problem is new. Symptoms have improved. prachi 19:47 19:29 09/18/2019 19:03 Hospitalization Ordered by Elroy Lynch MD for Inpatient prachi Admission. Preliminary diagnosis is Fall due to bumping against object; Obesity, unspecified; Dyspnea; Pain in right shoulder; Contusion of left lower leg - large cutaneous hematoma; Atrial fibrillation and flutter; Anemia, unspecified; Nondisplaced fracture of greater tuberosity of right humerus; Unspecified combined systolic (congestive) and diastolic (congestive) heart failure. Bed requested for Telemetry/MedSurg (Inpatient). Status is Inpatient Admission. Condition is Fair. Problem is new. Symptoms have improved. dw 20:57 19:47 09/18/2019 19:03 Hospitalization Ordered by Elroy Lynch MD for Inpatient rr5 Admission. Preliminary diagnosis is Fall due to bumping against object; Obesity, unspecified; Dyspnea; Pain in right shoulder; Contusion of left lower leg - large cutaneous hematoma; Atrial fibrillation and flutter; Anemia, unspecified; Nondisplaced fracture of greater tuberosity of right humerus; Unspecified combined systolic (congestive) and diastolic (congestive) heart failure; Hypoxemia; Primary pulmonary hypertension. Bed requested for Telemetry/MedSurg (Inpatient). Status is Inpatient Admission. Condition is Fair. Problem is new. Symptoms have improved. prachi
--- NOTE | 2019-09-18 19:04 | ER ---
Nurse's Notes [facility] Name: Kati Morin Age: 68 yrs Sex: Female : 1950 Arrival Date: 09/18/2019 Time: 18:14 Bed 15 Private MD: Diagnosis: Fall due to bumping against object;Obesity, unspecified;Dyspnea;Pain in right shoulder;Contusion of left lower leg-large cutaneous hematoma;Atrial fibrillation and flutter;Anemia, unspecified;Nondisplaced fracture of greater tuberosity of right humerus;Unspecified combined systolic (congestive) and diastolic (congestive) heart failure;Hypoxemia;Primary pulmonary hypertension Presentation: 09/17 18:15 Chief complaint: EMS states: FALL ATTEMPTING TO ENTER HOME AFTER D/C <1 HR FROM [facility] 2/ FALL 5 DAYS AGO. Coronavirus screen: Patient denies fever greater than 100.4F, cough, shortness of breath, or difficulty breathing. Proceed with normal triage process. Ebola Screen: No symptoms or risks identified at this time. Initial Sepsis Screen: Does the patient meet any 2 criteria? No. Patient's initial sepsis screen is negative. Does the patient have a suspected source of infection? No. Patient's initial sepsis screen is negative. Risk Assessment: Do you want to hurt yourself or someone else? Patient reports no desire to harm self or others. 18:15 Method Of Arrival: EMS: [facility] bp 18:15 Acuity: KATE 2 bp 19:30 Onset of symptoms was September 18, 2019. rr5 Triage Assessment: 18:18 General: Appears in no apparent distress. uncomfortable, obese, Behavior is bp cooperative, appropriate for age, anxious. Pain: Complains of pain in right arm. EENT: No deficits noted. Neuro: No deficits noted. Cardiovascular: No deficits noted. Respiratory: No deficits noted. Denies shortness of breath. GI: No signs and/or symptoms were reported involving the gastrointestinal system. : No signs and/or symptoms were reported regarding the genitourinary system. Derm: No deficits noted. Musculoskeletal: No deficits noted. Historical: - Allergies: 18:21 Codeine; bp 18:21 sulfamethoxazole-trimethoprim; bp - Home Meds: 18:30 Lasix 20 mg Oral tab 1 tab once daily [Active]; alprazolam 1 mg Oral tab 1 tab 3 times bp per day [Active]; acebutolol 200 mg Oral cap 1 cap 2 times per day [Active]; ascorbic acid (vitamin C) 1,000 mg tab [Active]; Flexeril 10 mg Oral tab 1 tab 3 times per day [Active]; Glucosamine 500 mg oral tab [Active]; [place] 7.5-325 mg Oral tab 1 tab every 6 hours [Active]; losartan 50 mg oral tab 1 tab once daily [Active]; rivaroxaban oral oral 1 tab [Active]; Revatio 20 mg oral tab 1 tab 3 times per day [Active]; - PMHx: 18:30 Hypertension; bp 18:38 Atrial Fib; bp - Immunization history:: Adult Immunizations up to date. - Social history:: Smoking status: Patient denies any tobacco usage or history of. Screenin:15 Abuse screen: Denies threats or abuse. Denies injuries from another. Nutritional bp screening: No deficits noted. Tuberculosis screening: No symptoms or risk factors identified. Fall Risk Fall in past 12 months (25 points). No secondary diagnosis (0 pts). IV access (20 points). Ambulatory Aid- Crutches/Cane/Walker (15 pts). Gait- Weak (10 pts.). Mental Status- Oriented to own ability (0 pts). Total Martinez Fall Scale indicates High Risk Score (45 or more points). Fall prevention measures have been instituted. Side Rails Up X 2 Placed Close to Nursing Station Frequent Obs/Assessments Occuring As available patient and family educated on Fall Prevention Program and Strategies. Assessment: 18:15 General: SEE TRIAGE NOTE. bp 19:30 General: Appears in no apparent distress. comfortable, Behavior is calm, cooperative, rr5 appropriate for age. 19:30 Pain: Complains of pain in right arm, left arm and left leg Pain Quality of pain is rr5 described as aching, Pain began suddenly, Is intermittent. Neuro: Level of Consciousness is awake, alert, obeys commands, Oriented to person, place, time, situation. Cardiovascular: Capillary refill < 3 seconds Patient's skin is warm and dry. Respiratory: Airway is patent Respiratory effort is even, unlabored, Respiratory pattern is regular, symmetrical. GI: No signs and/or symptoms were reported involving the gastrointestinal system. : No signs and/or symptoms were reported regarding the genitourinary system. EENT: No signs and/or symptoms were reported regarding the EENT system. Derm: Bruising that is dark purple, on right arm, left arm and left leg splint left arm with arm sling. Musculoskeletal: Capillary refill < 3 seconds, Swelling present in right arm, left arm and left leg. 20:55 Reassessment: Patient appears in no apparent distress at this time. Patient is alert, rr5 oriented x 3, equal unlabored respirations, skin warm/dry/pink. for transfer to medical surgical floor, vitally stable. breathing spontaneously with oxygen at 3 liter per nasal cannula. Vital Signs: 18:15 BP 106 / 60; Pulse 95; Resp 18; Temp 98.5; Pulse Ox 94% on R/A; bp 20:07 BP 118 / 57; Pulse 78; Resp 13; Temp 98; Pulse Ox 100% on 3 lpm NC; rr5 20:45 BP 122 / 69; Pulse 77; Resp 18; Temp 98; Pulse Ox 99% on 3 lpm NC; rr5 ED Course: 18:14 Patient arrived in ED. bp 18:15 Arm band placed on. bp 18:15 Patient has correct armband on for positive identification. Bed in low position. Call bp light in reach. Side rails up X2. 18:17 Triage completed. bp 18:20 Td Patricio MD is Attending Physician. prachi 18:30 Inserted saline lock: 18 gauge in left EJ, using aseptic technique. Blood collected. bp 18:57 Elroy Durham MD is Hospitalizing Provider. prachi 19:03 Piotr Carter, CLEMENTINA is Primary Nurse. bp 19:10 XRAY Chest (1 view) In Process Unspecified. EDMS 19:10 Shoulder Right (2 View) XRAY In Process Unspecified. EDMS 19:30 Boone cath inserted, using sterile technique, 18 Fr., by ks, balloon inflated, to rr5 gravity drainage, urine specimen collected. 20:46 No provider procedures requiring assistance completed. Patient admitted, IV remains in rr5 place. intact, No redness/swelling at site. Administered Medications: Discontinued: NS 0.9% 1000 ml IV at 75 ml/hr continuous 18:45 Drug: NS 0.9% 1000 ml Route: IV; Rate: 75 ml/hr; Site: left jugular; bp 19:30 Follow up: Response: No adverse reaction; IV Status: Order to discontinue infusion; IV rr5 Intake: 75ml 18:45 Drug: ProTONIX 40 mg Route: IVP; Site: left jugular; bp 19:45 Follow up: Response: No adverse reaction rr5 20:20 Drug: Lovenox 40 mg Route: Sub-Q; Site: right lower abdomen; rr5 20:43 Follow up: Response: No adverse reaction rr5 20:21 Drug: Aspirin 162 mg Route: PO; rr5 20:43 Follow up: Response: No adverse reaction rr5 20:32 Drug: Lasix 40 mg {Note: left EJ.} Route: IVP; Site: Other; rr5 20:44 Follow up: Response: No adverse reaction rr5 20:35 Drug: Ancef 1 grams {Note: left EJ.} Route: IVPB; Site: Other; rr5 20:43 Follow up: Response: No adverse reaction; IV Status: Completed infusion; IV Intake: rr5 10ml ; transfer to floor Intake: 19:30 IV: 75ml; Total: 75ml. rr5 20:43 IV: 10ml; Total: 85ml. rr5 Output: 20:55 Urine: 720ml (Boone); Total: 720ml. rr5 Outcome: 19:03 Decision to Hospitalize by Provider. prachi 20:47 Admitted to Med/surg accompanied by tech, via stretcher, room 202, with oxygen, with rr5 chart, Report called to quinten 20:47 Condition: stable 20:47 Instructed on the need for admit. 20:57 Patient left the ED. rr5 Signatures: Dispatcher [employer] EDTd Guerrero MD MD cha Peltier, Brian, RN RN To Argueta, RN RN rr5 Corrections: (The following items were deleted from the chart) 20:46 20:45 BP 122 / 69; Pulse 77bpm; Resp 18bpm; Pulse Ox 99%; Temp 98F; rr5 rr5
[2019-09-18 19:05] LABS: Absolute Lymphocytes (CBC) 1.3 K/uL (0.7-4.9); Basophils % 0.2 % (0-1.3); Hematocrit 24.6 % (36.0-45.0); Lymphocytes % 10.1 % (15.3-44.8); RBC Red Blood Cell Count 2.83 M/uL (3.86-4.86)
[2019-09-18 19:09] LABS: Protime INR 1.22
--- NOTE | 2019-09-18 19:15 | RAD REPORT ---
EXAM DESCRIPTION: RAD - Chest Single View - 09/18/2019 7:09 pm CLINICAL HISTORY: COUGH Chest pain. COMPARISON: Abdomen 1 View (KUB) dated 09/17/2019; Chest Single View dated 09/13/2019 FINDINGS: Portable technique limits examination quality. Mild interstitial pulmonary edema. Prominent cardiomegaly. Fracture proximal right humeral neck suspe cted, incompletely assessed. IMPRESSION: Mild CHF is suspected.
--- NOTE | 2019-09-18 19:16 | RAD REPORT ---
EXAM DESCRIPTION: RAD - Shoulder Right 2 View - 09/18/2019 7:09 pm CLINICAL HISTORY: PAIN Trauma, pain COMPARISON: No comparisons FINDINGS: Fracture is present involving the proximal right humerus. No dislocation evident.
[2019-09-18 19:28] LABS: Albumin 2.4 g/dL (3.4-5.0); Bilirubin Direct 0.8 mg/dL (0-0.2); Bilirubin Total 1.6 mg/dL (0.2-1.0); Magnesium 2.2 mg/dL (1.8-2.4); Potassium 3.6 mmol/L (3.5-5.1); Protein, Total 6.3 g/dL (6.4-8.2); Troponin (Emerg Dept Use Only) 0.11 ng/mL (0.0-0.045)
[2019-09-18] MEDS ORDERED: FUROSEMIDE 20 MG/ 2ML VIAL ONE (19:39)
[2019-09-18 19:48] LABS: Urine Blood NEGATIVE (NEG); Urine Glucose NEGATIVE (NEG); Urine Protein NEGATIVE (NEG)
[2019-09-18] MEDS ORDERED: ASPIRIN 81 MG CHEWABLE TABLET ONE (20:16)
[2019-09-18] MEDS ORDERED: ENOXAPARIN 40 MG/0.4 ML SQ ONE (20:16)
[2019-09-18] MEDS ORDERED: CEFAZOLIN/SWI 1gm 1 GM/10 ML SYR ONE (20:16)
--- NOTE | 2019-09-18 20:20 | RAD REPORT ---
EXAM DESCRIPTION: CT - Head C Spine Cap Wo Con - 09/18/2019 8:06 pm CLINICAL HISTORY: Trauma, head and neck injury. Chest, abdomen and pelvis pain. PAIN COMPARISON: <Comparisons> TECHNIQUE: CT head without contrast. CT cervical spine without contrast with coronal and sagittal reformatted images. CT chest, abdomen and pelvis without contrast with coronal and sagittal reformatted images of the [facility]. All CT scans are performed using dose optimization technique as appropriate and may include automated exposure control or mA/KV adjustment according to patient size. FINDINGS: CT HEAD WITHOUT CONTRAST: No intracranial hemorrhage, hydrocephalus or extra-axial fluid collection. No areas of brain edema o r midline shift. The paranasal sinuses and mastoids are clear. The calvarium is intact. CT CERVICAL SPINE WITHOUT CONTRAST: No fracture or subluxation. Mild lower cervical degenerative changes. The prevertebral soft tissues a re normal in thickness. CT CHEST, ABDOMEN, PELVIS WITHOUT CONTRAST: NOTE: Lack of contrast is a significant limitation in the assessment of trauma related findings. Spec ifically, solid organ, vascular and bowel evaluation is significantly limited. The lungs are clear.No pneumothorax or pericardial/pleural fluid. No evidence of intra-abdominal visceral injury, free fluid or free air is seen within the above detai led limitations. Moderate lower lumbar degenerative changes. Degenerative retrolisthesis is present 10 mm of L3 on 4. Fracture proximal right humerus is seen with mild impaction. No dislocation. IMPRESSION: Proximal right humerus fracture is seen with mild impaction.
[2019-09-18 21:19] VITALS: BMI 48.2
[2019-09-18] MEDS ORDERED: NA CHLORIDE 0.9% 1,000 ML IV SCH (21:19)
[2019-09-18] MEDS ORDERED: IPRATROPIUM BROM 0.5MG/2.5ML NEB PRN (21:19)
[2019-09-18] MEDS ORDERED: ACETAMINOPHEN 325 MG TABLET PO PRN (21:19)
[2019-09-18] MEDS ORDERED: ALBUTEROL 2.5 MG/3 ML NEB SOL NEB PRN (21:19)
[2019-09-18] MEDS ORDERED: SODIUM CHLORIDE 0.9% 10ML INJ IV PRN (21:19)
[2019-09-18] MEDS ORDERED: FENTANYL CITR 100 MCG/2 ML IV PRN (21:19)
[2019-09-18] MEDS ORDERED: ONDANSETRON 4 MG/2 ML VIAL IV PRN (21:19)
[2019-09-18] MEDS ORDERED: ACETAMINOPHEN 325 MG TABLET PO ONE (21:39)
[2019-09-18] MEDS ORDERED: DIPHENHYDRAMINE 50 MG/ML VIAL IV ONE (21:39)
[2019-09-18] MEDS ORDERED: NA CHLORIDE 0.9% 250 ML ONE (21:57)
[2019-09-19] MEDS ORDERED: CEFAZOLIN SODIUM 1 GM/VIAL ONE (02:51)
[2019-09-19] MEDS ORDERED: NA CHLORIDE 0.9% 50 ML ONE (02:55)
[2019-09-19] MEDS: FUROSEMIDE 20 MG/ 2ML VIAL IV PRN ×2 (03:07→06:48)
[2019-09-19] MEDS ORDERED: NA CHLORIDE 0.9% 250 ML ONE (03:08)
[2019-09-19] MEDS ORDERED: CEFAZOLIN/NS 1gm 1 GM/50 ML BAG IVPB SCH (04:00)
[2019-09-19] MEDS: PANTOPRAZOLE 40 MG INJ IVP SCH (08:21)
[2019-09-19] MEDS: ASCORBIC ACID 500 MG TABLET PO SCH (08:21)
[2019-09-19] MEDS: BISACODYL E.C. 5 MG TAB PO SCH (08:25)
[2019-09-19] MEDS ORDERED: ACEBUTOLOL 400 MG PO SCH (09:00)
[2019-09-19] MEDS ORDERED: BISACODYL E.C. 5 MG TAB PO PRN (09:00)
[2019-09-19] MEDS ORDERED: CEFAZOLIN/SWI 1gm 1 GM/10 ML SYR IVP SCH (09:00)
[2019-09-19] MEDS ORDERED: HYDROCODONE/APAP 7.5/325 MG TAB PO PRN ×3 (09:00→13:00)
[2019-09-19] MEDS ORDERED: TRAMADOL HCL 50 MG TAB PO SCH ×2 (09:00)
[2019-09-19] MEDS ORDERED: FUROSEMIDE 20 MG/ 2ML VIAL IV SCH ×2 (09:00)
[2019-09-19] MEDS ORDERED: ASPIRIN EC 81 MG TAB PO SCH (09:00)
[2019-09-19] MEDS ORDERED: SILDENAFIL CITRATE 20 MG TABLET PO SCH ×2 (09:00→13:45)
[2019-09-19] MEDS ORDERED: CYCLOBENZAPRINE 10 MG TAB PO SCH (09:00)
[2019-09-19] MEDS ORDERED: ALPRAZOLAM 1 MG TABLET PO PRN ×2 (09:03→13:00)
--- NOTE | 2019-09-19 09:16 | EKG ---
Test Date: 2019-09-18 Test Time: 19:59:14 Director Process Engineering: MG MEASUREMENT RESULTS: Intervals: Rate: 78 NV: QRSD: 94 QT: 418 QTc: 476 [place]: P: NV: QRS: 62 T: -72 INTERPRETIVE STATEMENTS: Atrial fibrillation RSR' or QR pattern in V1 suggests right ventricular conduction delay abormal ECG Compared to ECG 09/13/2019 15:27:54 T-wave abnormality still present Electronically Signed On 09-19-19 09:16:11 CDT by Harsha Israel
--- NOTE | 2019-09-19 09:54 | RAD REPORT ---
EXAM DESCRIPTION: Ion Single View09/19/2019 8:21 am CLINICAL HISTORY: Chest pain COMPARISON: September 17 FINDINGS: The lungs appear clear of acute infiltrate. The heart is moderately to markedly enlarged. Minimally displaced right humeral neck fracture. 15 millimeter area sclerosis proximal right humerus. Follow-up x-ray in 2 months recommended to asses s stability
--- NOTE | 2019-09-19 10:44 | CON ---
Date of Consultation: 09/19/2019 Patient admitted on 09/18/[address] Durham's service. I saw the patient on 09/19/2019. Reason For Consultation: Elevated troponin. History Of Present Illness: Ms. Morin is a 68-year-old white woman, she just left the hospital appr oximately 24 hours ago. She went home in the morning only to come back that same evening after a fal l. She had gotten weak and dizzy and actually fell on her . Her ended up with the le ft eye contusion and she fell on her right elbow and shoulder and has had hematoma and pain there. T here were no syncope and no chest pain reported prior to the event. She was just dizzy and weak. Sh e denied PND, orthopnea, pedal edema, or palpitation. Denied any fever or chills or cough. Prior to her discharge yesterday, she was anemic. She had just had a surgery with incision and debridement o f her left elbow secondary to recent humerus fracture by Dr. Webb. She has a history of severe pulmonary hypertension and chronic atrial fibrillation and has taken Xarelto at home which was contin ued. Prior to her leaving she also had a left leg hematoma which was been treated conservative conse rvatively. She was getting iron and she did receive some blood transfusion, but when she went home, apparently she was weak and dizzy and fell. Past Medical History: Includes chronic atrial fibrillation, pulmonary hypertension, last right ventr icular systolic pressure is 50 with a normal EF. She also has a history of chronic renal insufficien cy stage 2, anemia. Review of Systems: Negative. Social History: Negative. Family History: Noncontributory. Medications: At home, include Xarelto, sildenafil, losartan, Lasix and Xanax. Physical Examination: Vital Signs: Right now, her vital signs are stable. She is in atrial fibrillation, rate of 80. She is afebrile. She has no complaint of breathing, but is complaining of pain in the right shoulder, l eft shoulder, left leg, and feeling very anxious and jittery. HEENT: Negative. Neck: Supple with no bruit, lymphadenopathy, or JVD. Chest: Reveals some rales on both bases, which I believe are chronic. Her cardiac exam revealed an irregularly irregular rhythm and rate with a tricuspid regurgitation murmur. No gallops or rubs. Abdomen: Obese, but benign. Extremities: Revealed bandage in the left elbow, hematoma in the right shoulder, right elbow, and a large left lower extremity hematoma with cellulitis. Diagnostic Data: She has an elevated white count of 12,600. Her troponin was 0.11. Her BNP was 816 6. EKG shows chronic atrial fibrillation. Chest x-ray showed mild failure. Impression And Plan: I think Ms. Morin's main problem is overall very poor functional status with a nemia, chronic renal insufficiency, pulmonary hypertension, chronic atrial fibrillation. I do not th ink her weakness is secondary to all of the above and certainly anemia is significant and maybe a blo od transfusion is indicated. I would strongly suggest long-term rehabilitation, may be on the fifth floor if this is possible. I would definitely resume her home medication including the Xanax. I thi nk with her hematomas and falling, we really should consider stopping the Xarelto at least for a tobin h until she gets better. I will also stop the aspirin for now. When she goes home, she can resume a spirin, but for now we will continue Lovenox only. I would transfuse her. She is on Lasix for possi ble mild failure which I doubt. I think this is chronic changes from her pulmonary hypertension. I would definitely continue antibiotics for her cellulitis in her left leg. She is also on Protonix an d inhalers. I will discuss the case further with Dr. Durham. Again in summary, I would hold Xarelt o. Hold aspirin for now. Continue Lovenox. Resume aspirin as an outpatient, but not Xarelto for about a month. Consider rehabilitation upstairs and co ntinue antibiotics for the cellulitis. NB/MODL Voice ID: [id number] Report ID: [id number]
[2019-09-19] MEDS ORDERED: ACETAMINOPHEN 500 MG TAB PO PRN (13:00)
[2019-09-19] MEDS: TRAMADOL HCL 50 MG TAB PO SCH ×2 (14:01→23:06)
[2019-09-19] MEDS: SILDENAFIL CITRATE 20 MG TABLET PO SCH ×2 (14:02→23:00)
[2019-09-19 15:04] LABS: Hematocrit 28.4 % (36.0-45.0)
[2019-09-19] MEDS: ENOXAPARIN 40 MG/0.4 ML SQ SCH (16:25)
[2019-09-19] MEDS: ACEBUTOLOL 400 MG PO SCH (23:07)
[2019-09-20] MEDS: TRAMADOL HCL 50 MG TAB PO SCH ×6 (01:00→13:13)
[2019-09-20] MEDS ORDERED: ALPRAZOLAM 1 MG TABLET PO PRN (08:00)
[2019-09-20] MEDS ORDERED: FUROSEMIDE 20 MG/ 2ML VIAL IV SCH (08:00)
--- NOTE | 2019-09-20 08:03 | RAD REPORT ---
EXAM DESCRIPTION: RAD - Chest Single View - 09/20/2019 7:32 am CLINICAL HISTORY: Protocol, chest pain, shortness of breath COMPARISON: Portable September 18 TECHNIQUE: AP portable chest image was obtained 09/20/2019 7:32 am . FINDINGS: Lung volumes are low. Respiratory motion degradation is present. No peripheral mass or con solidation. Lung markings and central vasculature are slightly more prominent, probably due to shallo w inspiration and motion degradation. Heart and vasculature are normal. No measurable pleural effusio n and no pneumothorax. No acute bony abnormality seen. No acute aortic findings suspected. IMPRESSION: Chest is not substantially different from comparison when adjusting for lower lung volum es and respiratory motion degradation.
[2019-09-20] MEDS: SILDENAFIL CITRATE 20 MG TABLET PO SCH ×3 (08:47→23:00)
[2019-09-20] MEDS: PANTOPRAZOLE 40 MG INJ IVP SCH (08:48)
[2019-09-20] MEDS: BISACODYL E.C. 5 MG TAB PO SCH (08:48)
[2019-09-20] MEDS: FUROSEMIDE 20 MG TABLET PO SCH ×2 (08:48→08:50)
[2019-09-20] MEDS: ALPRAZOLAM 1 MG TABLET PO SCH ×2 (08:48→13:14)
[2019-09-20] MEDS: ACEBUTOLOL 400 MG PO SCH (08:49)
[2019-09-20 08:50] LABS: Urine Appearance CLEAR; Urine Bilirubin NEGATIVE (NEG); Urine Blood NEGATIVE (NEG); Urine Color DK YELLOW; Urine Glucose NEGATIVE (NEG); Urine Protein TRACE (NEG); Urine pH 5.5 (5.0-7.0)
[2019-09-20 08:51] LABS: Urine Microscopic Reflex ORDER UMIC
[2019-09-20 09:00] LABS: Urine Bacteria <20 /HPF (<20)
[2019-09-20 09:01] LABS: Urine Amorphous Sediment 1+ /HPF (NONE SEEN); Urine Culture Reflex Order REFLEXED; Urine Mucus 1+ /HPF (NONE SEEN); Urine Urothelial Cells <5 /HPF (NONE SEEN)
[2019-09-20] MEDS: ASCORBIC ACID 500 MG TABLET PO SCH (09:04)
--- NOTE | 2019-09-20 10:15 | PN ---
Date of Progress Note: 09/20/2019 Subjective: Ms. Morin was in the hospital approximately few days ago for a left humeral fracture, s he underwent incision and debridement of the wound. She was sent home and came back with a fall on h er right side without any fracture. Has a hematoma on her right lower extremity with cellulitis. Sh john was on antibiotics. She is improving from that standpoint. She is still in atrial fibrillation, c hronic. She is on aspirin. She is on Lovenox. She had anemia of 8.1, status post 1 unit of transfu ken. She is feeling slightly better. Again, I think considering her fall, her hematoma, her recent surgery on her left elbow, and her anemia requiring transfusion, I suggest a GI workup sometime down the road. I suggest aspirin and Lovenox for now. No Xarelto for about a month. Suggest physical r ehabilitation may be on the fifth floor if it is okay with Dr. Durham. I will leave that up to him to decide. Meanwhile, I will sign off her case. NEIL/DESMOND Voice ID: [id number] Report ID: [id number]
[2019-09-20] MEDS: CYCLOBENZAPRINE 10 MG TAB PO SCH (10:59)
--- NOTE | 2019-09-20 15:21 | CON ---
Date of Consultation: 09/20/2019 Reason For Consult: IV access. History Of Present Illness: This is the case of a 68-year-old female with history of lymphedema, nicky chandler, who fell apparently a few days ago, admitted to the hospital. She has a history of infection not too long ago in the left elbow what she received an I and D. She also has extensive history of m orbid obesity, atrial fibrillation, pulmonary hypertension, and chronic renal insufficiency. Patient had an internal jugular vein placed at the ER by the ER physician that is still working, but they nolasco ve not been able to draw any blood from there and they want a central line to facilitate that. Medical History: As above. Medications: Reviewed including blood thinners. Social History: She does smoke. She does drink alcohol. Family History: Noncontributory. Review of Systems: Ten points otherwise unremarkable. General: Patient is awake and alert. HEENT: Pupils anicteric. Chest: Bilateral breath sounds. Abdomen: Soft and depressible. Neck: The patient has a left external jugular vein access. Extremities: Severe lymphedema, patient says is chronic. Laboratory Data: Blood work shows WBC count of 12.6, hemoglobin of 8.1. Chloride 97, creatinine is 1.3, lipase 35. Assessment: 68-year-old patient with morbid obesity, severe lymphedema. They have been using software engineer intern al jugular vein for access but they want to draw some blood. The problem is that she has multiple ve ntral and central line placement before that she claims has been difficult. The neck is very difficu lt access because of the morbid obesity. She has also represented a high risk for us due once again to the morbid obesity. The legs are so swollen that it is hard to even see the femoral region in lo t area. For that reason, they have to find a way how to get blood just from some of the places. If they run down from the IV access, which they have right now, then central line I believe the benefit will outweigh the risk, but the only problem is that I may have to do this in the OR because we might have to do a fluoroscopy for guidance on this patient to be able to put the central line on her. Th at will include bringing patient to the OR since we do not have interventional radiologist and if we put them in OR, she barely can tolerate being flat from her chronic swelling, means that she may requ kate a desk assistant to be able to put a central line. So, we passed that message to the [facility] staff. They are going to see if they can get blood some other way and then proceed accordingly. If they believe those conditions the benefit outweigh the risk, then I asked them just to call me tete benito once again. The patient was fully explained the need for central line placement, risks including not limited to infection, bleeding, damage to adjacent structures, and complication, pneumothorax, AL , even . She also understands this may not relieve the symptoms. She might need more than one surgical intervention. She understood. DAHIANA/MODL Voice ID: [id number] Report ID: [id number]
[2019-09-20] MEDS: ENOXAPARIN 40 MG/0.4 ML SQ SCH (16:22)
--- NOTE | 2019-09-20 16:45 | PN ---
Date of Progress Note: 09/20/2019 Patient awoke this morning, more confused than usual. The temperature got 100.4. Chest x-ray shows some basilar issues, possibly atelectasis. However, the possibility of a pneumonia was also given co nsideration clinically as she has been rather immobile other than some PT for transferring for the la 10 days. Hospital acquired pneumonia versus in view of the today's circumstances clement versus at electasis was considered in the differential. The blood is not easily available if at all, and there fore coronavirus test was also ordered, which necessitated her isolation. Discussion of IV access wi th done with Dr. Kaufman and a central line will be considered if absolutely essential. I feel at t his time we could wait for 48 hours until we get the coronal viral test back and then it would be brandon nable to doing it in the OR. There was no way that it could be successfully attempted on the floor. Her vital signs were basically stable. She became afebrile and we will continue to monitor her. Sh john was seen by Cardiology. Continue no Xarelto. Continued on Lovenox and if at all possible, we coul d possibly attempt a forearm venous extraction of blood tomorrow. HR/MODL Voice ID: [id number] Report ID: [id number]
[2019-09-20] MEDS: DOXYCYCLINE 100 MG CAP PO SCH (19:54)
[2019-09-21] MEDS: TRAMADOL HCL 50 MG TAB PO SCH ×6 (00:10→23:08)
[2019-09-21] MEDS: ACEBUTOLOL 400 MG PO SCH ×3 (00:10→23:09)
[2019-09-21] MEDS: ALPRAZOLAM 1 MG TABLET PO SCH ×3 (00:11→13:00)
[2019-09-21] MEDS: BISACODYL E.C. 5 MG TAB PO SCH (08:31)
[2019-09-21] MEDS: ASCORBIC ACID 500 MG TABLET PO SCH (08:31)
[2019-09-21] MEDS: SILDENAFIL CITRATE 20 MG TABLET PO SCH ×3 (08:31→23:09)
[2019-09-21] MEDS: PANTOPRAZOLE 40 MG INJ IVP SCH (08:31)
[2019-09-21] MEDS: FUROSEMIDE 20 MG TABLET PO SCH (08:32)
[2019-09-21] MEDS: DOXYCYCLINE 100 MG CAP PO SCH ×2 (08:32→20:18)
[2019-09-21] MEDS: levoFLOXacin 500 MG TAB PO SCH (08:32)
[2019-09-21] MEDS: CYCLOBENZAPRINE 10 MG TAB PO SCH (10:05)
[2019-09-21] MEDS ORDERED: ENOXAPARIN 30 MG/0.3 ML SQ SCH (17:00)
[2019-09-21] MEDS ORDERED: ALBUTEROL 2.5 MG/3 ML NEB SOL NEB PRN (19:00)
[2019-09-21] MEDS ORDERED: IPRATROPIUM BROM 0.5MG/2.5ML NEB PRN (19:00)
[2019-09-22] MEDS: ALPRAZOLAM 1 MG TABLET PO SCH ×3 (00:55→14:54)
[2019-09-22] MEDS: TRAMADOL HCL 50 MG TAB PO SCH ×5 (03:24→22:03)
[2019-09-22 05:54] LABS: BUN Blood Urea Nitrogen 23 mg/dL (7-18); Bicarbonate 35 mmol/L (21-32); Glucose Level 84 mg/dL (74-106); Potassium 3.6 mmol/L (3.5-5.1); Sodium Level 141 mmol/L (136-145)
[2019-09-22 06:41] LABS: Basophils % 0.4 % (0-1.3); Hematocrit 29.4 % (36.0-45.0); Lymphocytes % 11.7 % (15.3-44.8); MPV 7.7 fL (7.6-11.3); RBC Red Blood Cell Count 3.33 M/uL (3.86-4.86)
[2019-09-22] MEDS: BISACODYL E.C. 5 MG TAB PO SCH (08:12)
[2019-09-22] MEDS: levoFLOXacin 500 MG TAB PO SCH (08:12)
[2019-09-22] MEDS: SILDENAFIL CITRATE 20 MG TABLET PO SCH ×3 (08:12→22:02)
[2019-09-22] MEDS: ASCORBIC ACID 500 MG TABLET PO SCH (08:12)
[2019-09-22] MEDS: DOXYCYCLINE 100 MG CAP PO SCH ×2 (08:12→20:59)
[2019-09-22] MEDS: PANTOPRAZOLE 40 MG INJ IVP SCH (08:21)
[2019-09-22] MEDS: FUROSEMIDE 20 MG TABLET PO SCH (08:23)
[2019-09-22] MEDS: ACEBUTOLOL 400 MG PO SCH ×2 (08:24→22:02)
[2019-09-22] MEDS: CYCLOBENZAPRINE 10 MG TAB PO SCH (11:00)
[2019-09-22] MEDS ORDERED: FUROSEMIDE 20 MG TABLET PO ONE (14:14)
[2019-09-22] MEDS ORDERED: BISACODYL 10 MG RECTAL SUPP PR PRN (14:15)
[2019-09-22] MEDS: RIVAROXABAN 10 MG TABLET PO SCH (16:44)
--- NOTE | 2019-09-22 16:44 | PN ---
Date of Progress Note: 09/21/2019 The patient basically is status quo, remains afebrile still, has difficulty with movements of any kin d. Hematoma on her left lower leg seems to improve somewhat as well as the edema on her fingers. Sh e has good motion in her fingers on the left and the thumb on the right. Awaiting the results of her coronavirus test. If negative, we will transfer back to floor care. The results are available ant duckworth. HR/MODL Voice ID: [id number] Report ID: [id number]
--- NOTE | 2019-09-22 16:50 | PN ---
Date of Progress Note: 09/22/2019 The patient's coronavirus test was negative. She was transferred back to floor care last night. She seems basically stable. Discussion is made as to her disposition with her and he felt that he would like to try again at home. He is obtaining a hospital bed. Home Health will be involved as far as physical therapy was concerned. This issue was also addressed with him. Her intake is adequa te. Hydration seems stable. We will discontinue the Boone. She has not had a bowel movement yet; h owever, feels like she could go. Hopefully, this will not require further intervention as of her las t episode. She was seen by Pulmonology, who felt the she could be discharged home as that is what he wanted to do rather than a SNF. Suggested lowering her Xarelto dose. This was also done. Assuming, arrangements can be made tomorrow. I think, medically, she could be transferred to a SNF or home ca re and in this case, the choice being home, which is reasonable provided he can get the assistance he needs from her family and perhaps some outside sources, which is obviously difficult in these times. An attempt will be made and we will re-evaluate her tomorrow prior to discharge. HR/MODL Voice ID: [id number] Report ID: [id number]
[2019-09-22] MEDS ORDERED: ENOXAPARIN 40 MG/0.4 ML SQ SCH (17:00)
--- NOTE | 2019-09-22 17:16 | P.PN ---
Subjective Date of Service: 09/22/19 Chief Complaint: Pulmonary HTN Subjective: No C/O voiced Review of Systems Respiratory: Shortness of Breath Physical Examination - Vital Signs Temperature: 97.6 F Blood Pressure: 124/58 Pulse: 60 Respirations: 19 Pulse Ox (%): 98 - Physical Exam General: Alert HEENT: Atraumatic Respiratory: Clear to auscultation bilaterally Cardiovascular: No edema Assessment & Plan - Problems (Diagnosis) (1) Pulmonary hypertension Current Visit: No Status: Acute Plan: Doing well (2) Hematoma Current Visit: Yes Status: Acute Plan: PT has large hematoma lent ant chávez. Doubt infection. Afebrile. Poss D/C home 1-2 days/ D/C [place]. [facility] wants to take pt home with home health and hospital bed. Agree with low dose Xarelto for Afib . HGb stable - Code Status/Comfort Care Code Status: Full Code
--- NOTE | 2019-09-22 18:50 | PN ---
Date of Progress Note: 09/22/2019 Reason For Service: Poor peripheral access. Subjective: The patient is doing better. The EJ is still pending. It is still patent. Patient fee ls better. Objective: Neck: The area of the neck was intact with no cellulitis. Extremities: Good capillary refill, although has some lymphedema. Plan: I discussed the case with the staff. They believe they might be able to do her work with the external jugular vein cannulation that we have. They have been trying to draw the blood from the oth er part of the body, still very difficult but at least they are satisfied until today. We once again talked to the patient and the family the risks of central line placement. The benefits, alternative s, and risks fully explained to her and hopefully we do not need it. At this moment, today do not ne ed it. Tomorrow will be another day and we will check on that. They understood that we may need flu oroscopy. Due to the her body habitus, it is kind of very difficult to do at her bedside and they un derstand that risk too. DAHIANA/DESMOND Voice ID: [id number] Report ID: [id number]
[2019-09-23] MEDS: ALPRAZOLAM 1 MG TABLET PO SCH ×3 (00:02→14:21)
[2019-09-23] MEDS: TRAMADOL HCL 50 MG TAB PO SCH ×5 (00:02→22:02)
[2019-09-23] MEDS: ASCORBIC ACID 500 MG TABLET PO SCH (08:58)
[2019-09-23] MEDS: PANTOPRAZOLE 40 MG INJ IVP SCH (08:58)
[2019-09-23] MEDS: BISACODYL E.C. 5 MG TAB PO SCH (08:59)
[2019-09-23] MEDS: levoFLOXacin 500 MG TAB PO SCH (08:59)
[2019-09-23] MEDS: DOXYCYCLINE 100 MG CAP PO SCH ×2 (08:59→20:13)
[2019-09-23] MEDS: ACEBUTOLOL 400 MG PO SCH ×2 (09:01→22:01)
[2019-09-23] MEDS: FUROSEMIDE 40 MG TABLET PO SCH (09:01)
[2019-09-23] MEDS: SILDENAFIL CITRATE 20 MG TABLET PO SCH ×3 (09:02→22:02)
[2019-09-23] MEDS: CYCLOBENZAPRINE 10 MG TAB PO SCH (11:50)
[2019-09-23] MEDS: RIVAROXABAN 10 MG TABLET PO SCH (18:01)
[2019-09-23] MEDS: HYDROCODONE/APAP 7.5/325 MG TAB PO SCH (22:01)
[2019-09-24] MEDS: HYDROCODONE/APAP 7.5/325 MG TAB PO SCH ×3 (00:23→13:45)
[2019-09-24] MEDS: TRAMADOL HCL 50 MG TAB PO SCH ×4 (00:23→13:45)
[2019-09-24] MEDS: ALPRAZOLAM 1 MG TABLET PO SCH ×3 (00:24→13:45)
[2019-09-24] MEDS ORDERED: ACETAMINOPHEN 325 MG TABLET PO SCH ×2 (08:00→11:00)
[2019-09-24] MEDS ORDERED: HYDROCODONE/APAP 7.5/325 MG TAB PO SCH (08:00)
[2019-09-24] MEDS: levoFLOXacin 500 MG TAB PO SCH (09:03)
[2019-09-24] MEDS: DOXYCYCLINE 100 MG CAP PO SCH (09:03)
[2019-09-24] MEDS: BISACODYL E.C. 5 MG TAB PO SCH (09:03)
[2019-09-24] MEDS: FUROSEMIDE 40 MG TABLET PO SCH (09:03)
[2019-09-24] MEDS: ASCORBIC ACID 500 MG TABLET PO SCH (09:03)
[2019-09-24] MEDS: ACEBUTOLOL 400 MG PO SCH (09:05)
[2019-09-24] MEDS: SILDENAFIL CITRATE 20 MG TABLET PO SCH ×2 (09:05→13:45)
[2019-09-24] MEDS: PANTOPRAZOLE 40 MG INJ IVP SCH (09:06)
[2019-09-24 09:18] VITALS: O2SAT 100
[2019-09-24] MEDS: CYCLOBENZAPRINE 10 MG TAB PO SCH (12:03)
[2019-09-24 12:17] VITALS: BP 125/56; TEMP 97.5
[2019-09-24] MEDS ORDERED: CYCLOBENZAPRINE 10 MG TAB PO SCH (15:00)
== END 2019-09-24 14:19 | disposition home health service (06) | DRG 605 ==
LOC: ER 18:15 → ERHOLD 19:04 → 2ND 20:10 → 4TH 09-20 09:01 → 2ND 09-21 18:22
PROVIDERS: ADMIT Family Medicine; ATTEND Family Medicine
PROC: 30233N1 Transfusion of Nonautologous Red Blood Cells into Peripheral Vein, Percutaneous Approach (ICD-10-PCS; principal; 2019-09-18)
PROC: 8E0ZXY6 Isolation (ICD-10-PCS; 2019-09-18)
PROC: 05HQ33Z Insertion of Infusion Device into Left External Jugular Vein, Percutaneous Approach (ICD-10-PCS; 2019-09-18)
DX: S80.12XA Contusion of left lower leg, initial encounter (principal); D62 Acute posthemorrhagic anemia; N17.9 Acute kidney failure, unspecified; I50.42 Chronic combined systolic (congestive) and diastolic (congestive) heart failure; L03.115 Cellulitis of right lower limb; I48.20 Chronic atrial fibrillation, unspecified; I13.0 Hypertensive heart and chronic kidney disease with heart failure and stage 1 through stage 4 chronic kidney disease, or unspecified chronic kidney disease; Z68.42 Body mass index [BMI] 45.0-49.9, adult; Z88.5 Allergy status to narcotic agent; Z79.899 Other long term (current) drug therapy; W18.00XA Striking against unspecified object with subsequent fall, initial encounter; M25.511 Pain in right shoulder; Z88.1 Allergy status to other antibiotic agents; R09.02 Hypoxemia; N18.2 Chronic kidney disease, stage 2 (mild); Z79.01 Long term (current) use of anticoagulants; Z20.828 Contact with and (suspected) exposure to other viral communicable diseases; F17.200 Nicotine dependence, unspecified, uncomplicated; I89.0 Lymphedema, not elsewhere classified; E66.01 Morbid (severe) obesity due to excess calories; I27.20 Pulmonary hypertension, unspecified
CPT/HCPCS: 36415; 36430; 51702; 70450; 71045; 71250; 72125; 80048; 80076; 81003; 81015; 83690; 83735; 83880; 84484; 85014; 85018; 85025; 85610; 86850; 86900; 86901; 87086; 87088; 93005; 96361; 96372; 96374; 96375; 97112; 97116; 97161; 97530; 99285; C9113; J0690; J1200; J1650; J1940; J7030; P9016; U0001

== ENCOUNTER 2019-12-14 12:42 | Emergency (ER) | payer OTHER ==
--- NOTE | 2019-12-14 13:23 | RAD REPORT ---
EXAM DESCRIPTION: CT - Head Brain Wo Cont - 12/14/2019 1:05 pm CLINICAL HISTORY: Hallucinations COMPARISON: None TECHNIQUE: Computed axial tomography of the head was obtained. IV contrast was not requested. All CT scans are performed using dose optimization technique as appropriate and may include automated exposure control or mA/KV adjustment according to patient size. FINDINGS: An intracranial bleed is not seen . The ventricles are normal in caliber. No extra-axial fluid collection is noted. Fluid within the sinuses/ mastoids is not seen. IMPRESSION: No acute intracranial abnormality is seen. If patient's symptoms persist MRI of the bra in would be recommended.
[2019-12-14 13:28] LABS: Hematocrit 36.5 % (36.0-45.0); MPV 7.5 fL (7.6-11.3)
--- OUTSIDE RECORDS SUMMARY | 2019-12-14 13:37 | XMS REPORT | Continuity of Care Document ---
:1950 Author Organization [facility] t Address [address] [place] [address] Care Team Providers Name Role Phone Aravind JAMA, S Attending Clinician Doctor Unassigned, Name Attending Clinician Unavailable Problems This patient has no known problems. Allergies, Adverse Reactions, Alerts This patient has no known allergies or adverse reactions. Medications This patient has no known medications. Procedures This patient has no known procedures. Encounters Start End Encounter Admission Attending Care Care Encounter Source Date/Time Date/Time Type Type Clinicians Facility Department ID 2019-02-04 2019-02-04 [facility] [id number] 09:34:48 23:59:00 Encounter Car [place] [id number] [place] [id number] [place] [id number] 2019-02-04 2019-02-04 Orders Doctor HARRIS [id number] 00:00:00 00:00:00 [id number] [facility] [id number] Results This patient has no known results.
[2019-12-14 13:46] LABS: Albumin 3.1 g/dL (3.4-5.0); Bilirubin Direct 0.2 mg/dL (0-0.2); Bilirubin Total 0.7 mg/dL (0.2-1.0); Potassium 3.5 mmol/L (3.5-5.1); Protein, Total 6.7 g/dL (6.4-8.2)
[2019-12-14 15:59] LABS: Urine Bacteria LOADED /HPF (<20); Urine Culture Reflex Order REFLEXED; Urine RBC >50 /HPF (NONE SEEN)
--- NOTE | 2019-12-14 16:25 | EDPHYS ---
Physician Documentation [facility] Name: Kati Morin Age: 69 yrs Sex: Female : 1950 Arrival Date: 12/14/2019 Time: 12:52 Bed 3 Private MD: ED Physician Shmuel Jones HPI: 12/13 12:58 This 69 yrs old Female presents to ER via EMS with complaints of rn hallucinations. 12:58 The patient presents with hallucinations. Onset: The symptoms/episode began/occurred 4 rn month(s) ago. Possible causes: unknown. Current symptoms: In the emergency department the patient's symptoms are unchanged from the initial presentation. The patient has experienced similar episodes in the past. The patient has been recently seen by a physician:. Reports began around 4 months ago since hospitalized after fall/trauma, with hallucinations, tends to happen at night, no new medication, no focal neuro complaints, no chest pain. No big changes recently, just persistent. . Historical: - Allergies: 13:01 Codeine; jl7 13:01 sulfamethoxazole-trimethoprim; jl7 13:01 Morphine; jl7 - Home Meds: 13:01 acebutolol 400 mg oral cap 1 cap 2 times per day [Active]; alprazolam 1 mg Oral tab 1 jl7 tab 3 times per day [Active]; tramadol 50 mg Oral tab 1 tab every 6 hours [Active]; [place] 7.5-325 mg Oral tab 1 tab every 6 hours [Active]; sildenafil 20 mg oral tab 1 tab 3 times per day [Active]; Flexeril 5 mg oral tab 1 tab bid [Active]; Xarelto 10 mg oral tab 1 tab once daily [Active]; - PMHx: 13:01 Atrial Fib; Hypertension; jl7 - Immunization history:: Adult Immunizations unknown. - Social history:: Smoking status: Patient denies any tobacco usage or history of. - Family history:: not pertinent. - Hospitalizations: : No recent hospitalization is reported. ROS: 12:58 Constitutional: Negative for fever, chills, and weight loss, Eyes: Negative for injury, rn pain, redness, and discharge, Neck: Negative for injury, pain, and swelling, Cardiovascular: Negative for chest pain, palpitations, and edema, Respiratory: Negative for shortness of breath, cough, wheezing, and pleuritic chest pain, Abdomen/GI: Negative for abdominal pain, nausea, vomiting, diarrhea, and constipation, : + decreased urinary output MS/Extremity: Negative for injury and deformity, Skin: Negative for injury, rash, and discoloration, Neuro: Negative for headache, weakness, numbness, tingling, and seizure. Exam: 12:58 Constitutional: Overweight woman, no acute distress, smiling. Head/Face: rn Normocephalic, atraumatic. ENT: MMM Cardiovascular: Regular rate and irregular rhythm. No pulse deficits. Respiratory: No increased work of breathing, no retractions or nasal flaring. Abdomen/GI: soft, non-tender Skin: Warm, dry MS/ Extremity: Pulses equal, no cyanosis. Left arm surgical wound C/d/i, mild swelling aove and about left elbow without erythema or streaking. Neuro: Awake and alert, GCS 15, oriented to person, place, time, and situation. Cranial nerves II-XII grossly intact. 13:26 ECG was reviewed by the Attending Physician. rn Vital Signs: 12:52 BP 164 / 72; Pulse 73; Resp 16; Temp 97.2; Pulse Ox 97% ; Weight 102.06 kg; Pain 0/10; jl7 13:29 BP 126 / 45; Pulse 66; Resp 17; Pulse Ox 100% ; jl7 13:50 BP 144 / 71; Pulse 59; Resp 16; Pulse Ox 100% ; jl7 14:45 BP 136 / 55; Pulse 56; Resp 17; Pulse Ox 97% ; hb 15:31 BP 137 / 80; Pulse 65; Resp 17; Pulse Ox 100% ; jl7 16:30 BP 135 / 75; Pulse 62; Resp 17; Pulse Ox 100% ; jl7 MDM: 12:52 Patient medically screened. rn 13:32 ED course: Consulted with Dr. Durham, concerned maybe medication induced, has been on rn pain medication for sometime, and has referred to pain management. Will call him back with results. . 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 . Data reviewed: vital signs, nurses notes, lab test result(s), EKG, radiologic studies, CT scan, and as a result, I will discharge patient. Counseling: I had a detailed discussion with the patient and/or guardian regarding: the historical points, exam findings, and any diagnostic results supporting the discharge/admit diagnosis, lab results, radiology results, the need for outpatient follow up, to return to the emergency department if symptoms worsen or persist or if there are any questions or concerns that arise at home. Special discussion: I discussed with the patient/guardian in detail that at this point there is no indication for admission to the hospital. It is understood, however, that if the symptoms persist or worsen the patient needs to return immediately for re-evaluation. ED course: + UTI but cannot explain her symptoms present for atleast 3-4 months. Recommend f/u with Dr. Durham and pain management for medication reconciliation and management, oral ABX, and return precautions. barely lets patient speak, patient rolls eyes and seems frustrated when is complaining. Patient will to try changing medication under supervision of her doctor, and wants to get better. Explained to that medication is much more likely given neg w/u here, length of symptoms, and more likely than acute psychiatric problems at 69 years of age. Patient alert, does not appear encephalopathic. . 12/13 12:53 Order name: Urine Culture rn 12/13 12:53 Order name: Urine Microscopic Only; Complete Time: 16:02 12/13 12:53 Order name: CBC with Diff; Complete Time: 13:33 12/13 12:53 Order name: Basic Metabolic Panel; Complete Time: 15:39 12/13 12:53 Order name: LFT's; Complete Time: 15:39 12/13 12:53 Order name: AMMONIA; Complete Time: 15:39 12/13 12:53 Order name: CT Head Brain wo Cont; Complete Time: 13:33 12/13 12:53 Order name: Urine Dipstick-Ancillary (obtain specimen); Complete Time: 15:30 12/13 12:53 Order name: IV Start; Complete Time: 13:20 12/13 15:30 Order name: Urine Dipstick--Ancillary (enter results) em1 EC:26 Rate is 69 beats/min. Rhythm is irregularly irregular. QRS [place] is Normal. AL interval rn is normal. QRS interval is normal. QT interval is prolonged at 484 msec. No Q waves. T waves are Normal. No ST changes noted. Clinical impression: Atrial Fibrillation. Interpreted by me. Reviewed by me. Administered Medications: 16:47 Drug: Rocephin 1 grams Route: IV; Rate: calculated rate; Site: left wrist; jl7 16:51 Follow up: Response: No adverse reaction; IV Status: Completed infusion jl7 Disposition: 12/14/19 16:24 Discharged to Home. Impression: Urinary tract infection, site not specified, Hallucinations, unspecified. - Condition is Stable. - Discharge Instructions: Urinary Tract Infection, Adult. - Prescriptions for cefpodoxime 100 mg Oral Tablet - take 1 tablet by ORAL route every 12 hours for 10 days take with food; 20 tablet. - Medication Reconciliation Form, Thank You Letter, Antibiotic Education, Prescription Opioid Use form. - Follow up: Elroy Durham MD; When: 2 - 3 days; Reason: Recheck today's complaints, Re-evaluation by your physician. - Problem is an ongoing problem. - Symptoms have improved. Signatures: Dispatcher [employer] EDMS Shmuel Jones MD MD rn Leal, Jahala, RN RN jl7 Corrections: (The following items were deleted from the chart) 13:08 12:58 Constitutional: Negative for fever, chills, and weight loss, Eyes: Negative for rn injury, pain, redness, and discharge, Neck: Negative for injury, pain, and swelling, Cardiovascular: Negative for chest pain, palpitations, and edema, Respiratory: Negative for shortness of breath, cough, wheezing, and pleuritic chest pain, Abdomen/GI: Negative for abdominal pain, nausea, vomiting, diarrhea, and constipation, MS/Extremity: Negative for injury and deformity, Skin: Negative for injury, rash, and discoloration, Neuro: Negative for headache, weakness, numbness, tingling, and seizure, rn 13:25 12:58 Constitutional: Overweight woman, no acute distress, smiling. Head/Face: rn Normocephalic, atraumatic. ENT: MMM Cardiovascular: Regular rate and rhythm. No pulse deficits. Respiratory: No increased work of breathing, no retractions or nasal flaring. Abdomen/GI: soft, non-tender Skin: Warm, dry MS/ Extremity: Pulses equal, no cyanosis. Left arm surgical wound C/d/i, mild swelling aove and about left elbow without erythema or streaking. Neuro: Awake and alert, GCS 15, oriented to person, place, time, and situation. Cranial nerves II-XII grossly intact. rn 17:03 16:24 12/14/2019 16:24 Discharged to Home. Impression: Urinary tract infection, site jl7 not specified; Hallucinations, unspecified. Condition is Stable. Forms are Medication Reconciliation Form, Thank You Letter, Antibiotic Education, Prescription Opioid Use. Follow up: Elroy Durham; When: 2 - 3 days; Reason: Recheck today's complaints, Re-evaluation by your physician. Problem is an ongoing problem. Symptoms have improved. rn
--- NOTE | 2019-12-14 16:25 | ER ---
Nurse's Notes [facility] Name: Kati Morin Age: 69 yrs Sex: Female : 1950 Arrival Date: 12/14/2019 Time: 12:52 Bed 3 Private MD: Diagnosis: Urinary tract infection, site not specified;Hallucinations, unspecified Presentation: 12/13 12:52 Chief complaint: EMS states: Toned out for intermittent visual hallucinations x 15-16 jl7 weeks, mostly at night. Denies hallucinations at this time, denies pain, denies fever, cough, congestion. Coronavirus screen: Proceed with normal triage. Ebola Screen: No symptoms or risks identified at this time. Initial Sepsis Screen: Does the patient meet any 2 criteria? No. Patient's initial sepsis screen is negative. Does the patient have a suspected source of infection? No. Patient's initial sepsis screen is negative. Risk Assessment: Do you want to hurt yourself or someone else? Patient reports no desire to harm self or others. Onset of symptoms was September 13, 2019. Care prior to arrival: None. Transition of care: patient was not received from another setting of care. 12:52 Method Of Arrival: EMS: [facility] jl7 12:52 Acuity: KATE 3 jl7 13:10 Care prior to arrival: IV initiated. 20 GA, in the left antecubital area. jl7 Triage Assessment: 13:01 General: Appears in no apparent distress. uncomfortable, Behavior is calm, cooperative, jl7 appropriate for age. Pain: Denies pain. Neuro: Level of Consciousness is awake, alert, obeys commands, Oriented to person, place, time, situation. Cardiovascular: Patient's skin is warm and dry. Respiratory: Airway is patent Respiratory effort is even, unlabored, Respiratory pattern is regular, symmetrical. Derm: Skin is pink, warm \T\ dry. Historical: - Allergies: 13:01 Codeine; jl7 13:01 sulfamethoxazole-trimethoprim; jl7 13:01 Morphine; jl7 - Home Meds: 13:01 acebutolol 400 mg oral cap 1 cap 2 times per day [Active]; alprazolam 1 mg Oral tab 1 jl7 tab 3 times per day [Active]; tramadol 50 mg Oral tab 1 tab every 6 hours [Active]; [place] 7.5-325 mg Oral tab 1 tab every 6 hours [Active]; sildenafil 20 mg oral tab 1 tab 3 times per day [Active]; Flexeril 5 mg oral tab 1 tab bid [Active]; Xarelto 10 mg oral tab 1 tab once daily [Active]; - PMHx: 13:01 Atrial Fib; Hypertension; jl7 - Immunization history:: Adult Immunizations unknown. - Social history:: Smoking status: Patient denies any tobacco usage or history of. - Family history:: not pertinent. - Hospitalizations: : No recent hospitalization is reported. Screenin:21 Abuse screen: Denies threats or abuse. Denies injuries from another. Nutritional jl7 screening: No deficits noted. Tuberculosis screening: No symptoms or risk factors identified. Fall Risk No fall in past 12 months (0 pts). Secondary diagnosis (15 points) CVA, IV access (20 points). Ambulatory Aid- None/Bed Rest/Nurse Assist (0 pts). Gait- Impaired (20 pts.). Mental Status- Oriented to own ability (0 pts). Total Martinez Fall Scale indicates High Risk Score (45 or more points). Fall prevention measures have been instituted. Side Rails Up X 2 Placed Close to Nursing Station Frequent Obs/Assessments Occuring Family Present and informed to notify staff if the need to leave the bedside As available patient and family educated on Fall Prevention Program and Strategies. Assessment: 13:00 General: General: See triage assessment. 7 13:20 Reassessment: Pt's at bedside. [facility] 13:51 Reassessment: Dr. Jones at bedside. 7 15:00 Reassessment: Patient appears in no apparent distress at this time. No changes from [facility] previously documented assessment. Patient and/or family updated on plan of care and expected duration. Pain level reassessed. Patient is alert, oriented x 3, equal unlabored respirations, skin warm/dry/pink. 16:25 Reassessment: Dr. Jones at bedside discussing results and POC. [facility] 16:51 Reassessment: Pt awaiting EMS for transportation. [facility] Vital Signs: 12:52 BP 164 / 72; Pulse 73; Resp 16; Temp 97.2; Pulse Ox 97% ; Weight 102.06 kg; Pain 0/10; jl7 13:29 BP 126 / 45; Pulse 66; Resp 17; Pulse Ox 100% ; jl7 13:50 BP 144 / 71; Pulse 59; Resp 16; Pulse Ox 100% ; jl7 14:45 BP 136 / 55; Pulse 56; Resp 17; Pulse Ox 97% ; hb 15:31 BP 137 / 80; Pulse 65; Resp 17; Pulse Ox 100% ; jl7 16:30 BP 135 / 75; Pulse 62; Resp 17; Pulse Ox 100% ; jl7 ED Course: 12:52 Patient arrived in ED. rn 12:52 Shmuel Jones MD is Attending Physician. rn 12:52 Parviz Ferrer, CLEMENTINA is Primary Nurse. jl7 12:57 Triage completed. jl7 13:01 Arm band placed on right wrist. jl7 13:04 CT Head Brain wo Cont In Process Unspecified. EDMS 13:20 Initial lab(s) drawn, by me, sent to lab. EKG done, by ED staff, reviewed by Shmuel Jones MD. Inserted saline lock: 22 gauge in left wrist, using aseptic technique. Blood collected. 13:21 Patient has correct armband on for positive identification. Placed in gown. Bed in low jl7 position. Call light in reach. Side rails up X 1. patient monitor on. Pulse ox on. NIBP on. Warm blanket given. 15:31 Urine collected: straight cath specimen, cloudy. Straight cath inserted, using sterile jl7 technique, 14 Fr. Specimen obtained. Returned cloudy urine. Patient tolerated well. 16:23 Elroy Durham MD is Referral Physician. rn 16:51 No provider procedures requiring assistance completed. IV discontinued, intact, jl7 bleeding controlled, No redness/swelling at site. Pressure dressing applied. Administered Medications: 16:47 Drug: Rocephin 1 grams Route: IV; Rate: calculated rate; Site: left wrist; jl7 16:51 Follow up: Response: No adverse reaction; IV Status: Completed infusion jl7 Outcome: 16:24 Discharge ordered by . rn 16:51 Discharged to home via ambulance. jl7 16:51 Condition: stable 16:51 Discharge instructions given to patient, family, Instructed on discharge instructions, follow up and referral plans. medication usage, Demonstrated understanding of instructions, follow-up care, medications, Prescriptions given X 1. 17:03 Patient left the ED. jl7 Addendum: 12/17/2019 07:43 Addendum: Culture Results: Positive urine culture. No further action required. Bacteria i w sensitive to prescribed antibiotic. Signatures: Dispatcher [employer] Bettye Lind, RN Shmuel De La Rosa MD MD rn Baxter, Heather RN Parviz Deal RN RN jl7
[2019-12-14] MEDS ORDERED: CEFTRIAXONE/SWI 1gm 1 GM/10 ML SYR ONE (16:43)
[2019-12-14 17:09] VITALS: TEMP 97.2
[2019-12-14 17:17] VITALS: O2SAT 100
[2019-12-14 17:19] VITALS: BP 135/75
[2019-12-14 21:05] LABS: Urine Blood 3+ (NEG); Urine Glucose NEGATIVE (NEG); Urine Protein 3+ (NEG); Urine Specific Gravity 1.025 (1.005-1.030); Urine pH 6.5 (5.0-7.0)
--- NOTE | 2019-12-15 12:25 | EKG ---
Test Date: 2019-12-14 Test Time: 13:21:39 [employer] Representative: MARK MEASUREMENT RESULTS: Intervals: Rate: 69 WA: QRSD: 90 QT: 452 QTc: 484 Williamson: P: WA: QRS: 75 T: 71 INTERPRETIVE STATEMENTS: Atrial fibrillation RSR' or QR pattern in V1 suggests right ventricular conduction delay Prolonged QT Abnormal ECG Compared to ECG 09/18/2019 19:59:14 Prolonged QT interval now present Electronically Signed On 12-15-19 12:22:29 CDT by Harsha Israel
== END 2019-12-14 17:03 | disposition home or self-care (01) ==
LOC: ER 12:42
DX: N39.0 Urinary tract infection, site not specified (principal); I10 Essential (primary) hypertension; I48.91 Unspecified atrial fibrillation; Z79.01 Long term (current) use of anticoagulants; Z88.2 Allergy status to sulfonamides; Z88.5 Allergy status to narcotic agent
CPT/HCPCS: 93005; 87088; 85025; 87086; 80048; 36415; 82140; 80076; 87077; 87186; 70450; 51702; 96374; 99285; J0696; 81003; 81015

== ENCOUNTER 2020-05-07 19:08 | Emergency (ER) | payer OTHER ==
--- OUTSIDE RECORDS SUMMARY | 2020-05-07 19:10 | XMS REPORT | Continuity of Care Document ---
:1950 Author Organization [facility] t Address [address] [place] [address] Care Team Providers Name Role Phone Doctor Unassigned, Name Attending Clinician Unavailable Aravind JAMA S Attending Clinician Problems This patient has no known problems. Allergies, Adverse Reactions, Alerts This patient has no known allergies or adverse reactions. Medications This patient has no known medications. Procedures This patient has no known procedures. Encounters Start End Encounter Admission Attending Care Care Encounter Source Date/Time Date/Time Type Type Clinicians Facility Department ID 2020-04-04 2020-04-04 Orders Doctor HARRIS [id number] 00:00:00 00:00:00 Only UnassignedUBALDO [id number] [place] [id number] 2019-02-04 2019-02-04 [facility] [id number] 09:34:48 23:59:00 Encounter Car [place] [id number] [place] [id number] [place] [id number] 2019-02-04 2019-02-04 Orders Doctor HARRIS [id number] 00:00:00 00:00:00 Only UnassignedUBALDO [id number] [place] [id number] Results This patient has no known results.
--- OUTSIDE RECORDS SUMMARY | 2020-05-07 19:11 | XMS REPORT | Summary of Care ---
:1950 Author Organization [facility] - Health Address [address] [place] [address] Care Team Providers Name Role Phone Elroy Durham Primary Care Provider Encounter Details Date Type Department Care Team Description 04/04/2020 Orders Only [facility] Doctor Unassigned, No [address] [facility] [place] [address] [address] [place] [address] Allergies Not on Filedocumented as of this encounter (statuses as of 04/04/2020) Medications Not on filedocumented as of this encounter (statuses as of 04/04/2020) Active Problems Not on filedocumented as of this encounter (statuses as of 04/04/2020) Social History Tobacco Use Types Packs/Day Years Used Date Never Assessed Sex Assigned at Date Recorded Not on file documented as of this encounter Last Filed Vital Signs Not on filedocumented in this encounter Plan of Treatment Health Maintenance Due Date Last Done Comments HEPATITIS C (HCV) SCREEN 1950 Depression Screening 1960 DTaP,Tdap,and Td Vaccines (1 - Tdap) 12/12/1967 Breast Cancer Screening (MAMMOGRAM) 1988 COLON CANCER SCREENING ANNUAL FIT/FOBT 1998 COLON CANCER SCREENING FIT DNA EVERY 3 YEARS 1998 COLON CANCER SCREENING SIGMOIDOSCOPY EVERY 5 YEARS 1998 COLONOSCOPY 1998 Colorectal Cancer Screening 1998 Zoster Recombinant Vaccine (SHINGRIX) (1 of 2) 1998 Medicare Wellness Visit 2013 Osteoporosis Screening 2013 PNEUMOCOCCAL VACCINES 65+ (1 of 1 - PPSV23) 2013 INFLUENZA VACCINE (#1) 2020 documented as of this encounter Procedures Procedure Name Priority Date/Time Associated Diagnosis Comme nts REFERRAL- Routine 04/04/2020 12:01 AM CDT REQUEST/RESPONSE documented in this encounter Results Not on filedocumented in this encounter Insurance Payer Benefit Plan / Subscriber ID Effective Dates Phone Addre ss Type Group MEDICARE MEDICARE PART A [id number] 2013-Alejandra [phone] [id number] [place] [id number] A[employer]NA AETNA INDEMNITY [id number] 2013-Alejandra Indemnity t documented as of this encounter
[2020-05-07 20:24] LABS: Absolute Lymphocytes (CBC) 1.8 K/uL (0.7-4.9); Basophils % 0.7 % (0-1.3); Hematocrit 35.5 % (36.0-45.0); Lymphocytes % 27.8 % (15.3-44.8); RBC Red Blood Cell Count 4.21 M/uL (3.86-4.86)
[2020-05-07 20:31] LABS: Protime INR 1.43
[2020-05-07 20:35] LABS: Albumin 3.6 g/dL (3.4-5.0); Bilirubin Direct 0.2 mg/dL (0-0.2); Bilirubin Total 0.5 mg/dL (0.2-1.0); Potassium 4.1 mmol/L (3.5-5.1); Protein, Total 6.9 g/dL (6.4-8.2)
--- NOTE | 2020-05-07 23:02 | EDPHYS ---
Physician Documentation [facility] Name: Kati Morin Age: 69 yrs Sex: Female : 1950 Arrival Date: 05/07/2020 Time: 19:09 Bed 15 Private MD: ED Physician Jamarcus Kwok HPI: 05/07 21:07 This 69 yrs old Female presents to ER via EMS with complaints of Laceration mh7 To Leg. 21:08 The patient presents with bleeding wound. The complaints affect the left chávez. Context: mh7 The problem was sustained at home, resulted from an unknown cause, the patient is not able to bear weight, the patient is not able to ambulate, Bed Bound, Problem is a result from a previous injury: Yes. Onset: The symptoms/episode began/occurred 5 day(s) ago, and became worse today. Modifying factors: The symptoms are alleviated by nothing. the symptoms are aggravated by nothing. Associated signs and symptoms: Pertinent negatives calf tenderness, fever, nausea, numbness, rash, swelling, tingling, vomiting, warmth, weakness. Treatment prior to arrival includes: applying pressure to the affected area. Severity of symptoms: At their worst the symptoms were moderate, earlier today, in the emergency department the symptoms are unchanged. Patient has longstanding hematoma to left chávez that started bleeding 5 days ago after brushing against an object. Patient's applied steri strips to area but today it started bleeding again and he could not get it to stop.. Historical: - Allergies: 19:15 Codeine; jd3 19:15 Morphine; jd3 19:15 sulfamethoxazole-trimethoprim; jd3 - Home Meds: 19:15 alprazolam 1 mg Oral tab 1 tab 3 times per day [Active]; Flexeril 5 mg Oral tab 1 tab jd3 BID [Active]; [place] 7.5-325 mg Oral tab 1 tab every 6 hours [Active]; tramadol 50 mg Oral tab 1 tab every 6 hours [Active]; Xarelto 10 mg Oral tab 1 tab once daily [Active]; - PMHx: 19:15 Atrial Fib; Hypertension; Rheumatoid Arthritis; Anxiety; jd3 - Immunization history:: Adult Immunizations up to date. - Social history:: Smoking status: unknown. ROS: 21:08 Constitutional: Negative for fever, chills, and weight loss, Eyes: Negative for injury, mh7 pain, redness, and discharge, ENT: Negative for injury, pain, and discharge, Neck: Negative for injury, pain, and swelling, Cardiovascular: Negative for chest pain, palpitations, and edema, Respiratory: Negative for shortness of breath, cough, wheezing, and pleuritic chest pain, Abdomen/GI: Negative for abdominal pain, nausea, vomiting, diarrhea, and constipation, Back: Negative for injury and pain, : Negative for injury, bleeding, discharge, and swelling, Neuro: Negative for headache, weakness, numbness, tingling, and seizure, Psych: Negative for depression, anxiety, suicide ideation, homicidal ideation, and hallucinations, Allergy/Immunology: Negative for hives, rash, and allergies, Endocrine: Negative for neck swelling, polydipsia, polyuria, polyphagia, and marked weight changes. Exam: 21:08 Constitutional: This is a well developed, well nourished patient who is awake, alert, mh7 and in no acute distress. Head/Face: Normocephalic, atraumatic. Eyes: Pupils equal round and reactive to light, extra-ocular motions intact. Lids and lashes normal. Conjunctiva and sclera are non-icteric and not injected. Cornea within normal limits. Periorbital areas with no swelling, redness, or edema. Neck: Trachea midline, no thyromegaly or masses palpated, and no cervical lymphadenopathy. Supple, full range of motion without nuchal rigidity, or vertebral point tenderness. No Meningismus. Chest/axilla: Normal chest wall appearance and motion. Nontender with no deformity. No lesions are appreciated. Cardiovascular: Regular rate and rhythm with a normal S1 and S2. No gallops, murmurs, or rubs. Normal PMI, no JVD. No pulse deficits. Respiratory: Lungs have equal breath sounds bilaterally, clear to auscultation and percussion. No rales, rhonchi or wheezes noted. No increased work of breathing, no retractions or nasal flaring. Abdomen/GI: Soft, non-tender, with normal bowel sounds. No distension or tympany. No guarding or rebound. No evidence of tenderness throughout. 21:08 Musculoskeletal/extremity: Extremities: bleeding wound approximately one centimeter in diameter, Circulation is intact in all extremities. Pulses: are normal with no appreciated deficits, Perfusion: the patient is normally perfused throughout, Perfusion: the extremity is normally perfused throughout, Sensation intact. 21:08 Skin: bleeding wound left chávez. Vital Signs: 19:15 BP 135 / 63; Pulse 66; Resp 17 S; Temp 97.5(TE); Pulse Ox 97% on R/A; Weight 90.72 kg jd3 (R); Height 5 ft. 0 in. (152.40 cm) (R); Pain 8/10; 20:21 BP 125 / 73; Pulse 73; Resp 17 S; Pulse Ox 96% on R/A; jd3 21:21 BP 130 / 63; Pulse 72; Resp 17 S; Pulse Ox 96% on R/A; jd3 22:23 BP 122 / 64; Pulse 64; Resp 17 S; Pulse Ox 95% on R/A; jd3 23:23 BP 127 / 70; Pulse 61; Resp 17 S; Pulse Ox 97% on R/A; jd3 19:15 Body Mass Index 39.06 (90.72 kg, 152.40 cm) jd3 Laceration: 22:55 Wound Repair of 1cm ( 0.4in ) subcutaneous laceration to left chávez. Irregularly mh7 shaped.. Profuse bleeding noted.. Distal neuro/vascular/tendon intact. Wound prep: Simple cleansing by me. Skin closed with 1 3-0 Ethilon using simple sutures and sterile technique. Subcutaneous tissue closed with 1 4-0 Vicryl using figure of eight. Dressed with surgicel and vaseline guaze. Patient tolerated well. MDM: 22:55 Differential diagnosis: open fracture, contusion, abrasion, Bleeding Chronic Wound. mh7 Data reviewed: vital signs, nurses notes, EMS record, lab test result(s), CBC, electrolytes, Coags. Data interpreted: Pulse oximetry: on room air is 95 %. Interpretation: normal. Counseling: I had a detailed discussion with the patient and/or guardian regarding: the historical points, exam findings, and any diagnostic results supporting the discharge/admit diagnosis, lab results, radiology results, the need for outpatient follow up, to return to the emergency department if symptoms worsen or persist or if there are any questions or concerns that arise at home. Response to treatment: the patient's symptoms have resolved after treatment, the patient's blood pressure is in an acceptable range, mental status has returned to baseline, the patient no longer shows bradycardia, the patient is not short of breath, the patient is not tachycardic, the patient's pain is gone, the patient's temperature has normalized. 23:01 Patient medically screened. [facility] 05/07 20:06 Order name: CBC with Diff; Complete Time: 21:06 [facility] 05/07 20:06 Order name: Basic Metabolic Panel; Complete Time: 21:06 [facility] 05/07 20:06 Order name: Protime (+inr); Complete Time: 21:06 [facility] 05/07 20:06 Order name: Ptt, Activated; Complete Time: 21:06 [facility] 05/07 20:06 Order name: LFT's; Complete Time: 21: [facility] 05/07 20:19 Order name: Tib Fib Left XRAY [facility] Administered Medications: No medications were administered Disposition: 05/07/20 23:01 Discharged to Home. Impression: Bleeding Left Leg Wound. - Condition is Stable. - Discharge Instructions: Sutured Wound Care, [id number], Stitches, Tyrese, or Adhesive Wound Closure, Ssoz-dy-Snoj. - Medication Reconciliation Form, Thank You Letter, Antibiotic Education, Prescription Opioid Use form. - Follow up: Private Physician; When: 1 - 2 days; Reason: Wound Recheck, Worsening of condition, Recheck today's complaints, Continuance of care, Re-evaluation by your physician. - Problem is chronic. - Symptoms have improved. Signatures: Dispatcher [employer] Temo Mendez RN RN jd3 Holmes, Maurice, MD MD 7 Corrections: (The following items were deleted from the chart) 23:33 23:01 05/07/2020 23:01 Discharged to Home. Impression: Bleeding Left Leg Wound. jd3 Condition is Stable. Forms are Medication Reconciliation Form, Thank You Letter, Antibiotic Education, Prescription Opioid Use. Follow up: Private Physician; When: 1 - 2 days; Reason: Wound Recheck, Worsening of condition, Recheck today's complaints, Continuance of care, Re-evaluation by your physician. Problem is chronic. Symptoms have improved. [facility]
--- NOTE | 2020-05-07 23:02 | ER ---
Nurse's Notes [facility] Name: Kati Morin Age: 69 yrs Sex: Female : 1950 Arrival Date: 05/07/2020 Time: 19:09 Bed 15 Private MD: Diagnosis: Bleeding Left Leg Wound Presentation: 05/07 19:10 Chief complaint: EMS states: "the pt had a hematoma that she bumped yesterday causing jd3 her to bleed. she is on Xarelto. her got the bleeding stopped initially by rapping it up. today when she tried standing up and moving around, it started bleeding again. we had it stopped briefly, but when she went to move around it started again.". Coronavirus screen: At this time, the client does not indicate any symptoms associated with coronavirus-19. Ebola Screen: Patient negative for fever greater than or equal to 101.5 degrees Fahrenheit, and additional compatible Ebola Virus Disease symptoms. Initial Sepsis Screen: Does the patient meet any 2 criteria? No. Patient's initial sepsis screen is negative. Does the patient have a suspected source of infection? No. Patient's initial sepsis screen is negative. Risk Assessment: Do you want to hurt yourself or someone else? Patient reports no desire to harm self or others. Onset of symptoms was May 07, 2020. 19:10 Method Of Arrival: EMS: [facility] jd3 19:10 Acuity: KATE 3 jd3 Historical: - Allergies: 19:15 Codeine; jd3 19:15 Morphine; jd3 19:15 sulfamethoxazole-trimethoprim; jd3 - Home Meds: 19:15 alprazolam 1 mg Oral tab 1 tab 3 times per day [Active]; Flexeril 5 mg Oral tab 1 tab jd3 BID [Active]; [place] 7.5-325 mg Oral tab 1 tab every 6 hours [Active]; tramadol 50 mg Oral tab 1 tab every 6 hours [Active]; Xarelto 10 mg Oral tab 1 tab once daily [Active]; - PMHx: 19:15 Atrial Fib; Hypertension; Rheumatoid Arthritis; Anxiety; jd3 - Immunization history:: Adult Immunizations up to date. - Social history:: Smoking status: unknown. Screenin:18 Abuse screen: Denies threats or abuse. Nutritional screening: No deficits noted. jd3 Tuberculosis screening: No symptoms or risk factors identified. Fall Risk Ambulatory Aid- None/Bed Rest/Nurse Assist (0 pts). Gait- Normal/Bed Rest/Wheelchair (0 pts) Mental Status- Oriented to own ability (0 pts). Total Martinez Fall Scale indicates No Risk (0-24 pts). Assessment: 19:16 General: Appears in no apparent distress. uncomfortable, Behavior is calm, cooperative, jd3 appropriate for age. Pain: Complains of pain in left chávez Quality of pain is described as aching. Neuro: Level of Consciousness is awake, alert, obeys commands, Oriented to person, place, time, situation. Cardiovascular: Denies chest pain, Capillary refill < 3 seconds Patient's skin is warm and dry. Respiratory: Airway is patent Respiratory effort is even, unlabored, Respiratory pattern is regular, symmetrical, Denies cough, shortness of breath. GI: No signs and/or symptoms were reported involving the gastrointestinal system. : No signs and/or symptoms were reported regarding the genitourinary system. EENT: No signs and/or symptoms were reported regarding the EENT system. Derm: Skin is intact, Skin is dry, Skin is black, Skin temperature is warm Wound noted left chávez Wound is covered with clean dressing to control bleeding. Musculoskeletal: No signs and/or symptoms reported regarding the musculoskeletal system. 20:16 Reassessment: Patient and/or family updated on plan of care and expected duration. Pain jd3 level reassessed. Patient is alert, oriented x 3, equal unlabored respirations, skin warm/dry/pink. provider and primary nurse at bedside attempting to suture wound. sutures unsuccessful, pressure dressing applied. provider and nurse at bedside since 1951. 21:20 Reassessment: Patient appears in no apparent distress at this time. Patient and/or jd3 family updated on plan of care and expected duration. Pain level reassessed. Patient is alert, oriented x 3, equal unlabored respirations, skin warm/dry/pink. pressure dressing loosened, no bleeding noted, awaking results Patient states feeling better. 22:22 Reassessment: Patient appears in no apparent distress at this time. No changes from jd3 previously documented assessment. Patient and/or family updated on plan of care and expected duration. Pain level reassessed. Patient is alert, oriented x 3, equal unlabored respirations, skin warm/dry/pink. 23:22 Reassessment: Patient appears in no apparent distress at this time. Patient and/or jd3 family updated on plan of care and expected duration. Pain level reassessed. Patient is alert, oriented x 3, equal unlabored respirations, skin warm/dry/pink. pt and family reported understanding of discharge instructions, awaiting EMS for discharge home. Patient states feeling better. Vital Signs: 19:15 BP 135 / 63; Pulse 66; Resp 17 S; Temp 97.5(TE); Pulse Ox 97% on R/A; Weight 90.72 kg jd3 (R); Height 5 ft. 0 in. (152.40 cm) (R); Pain 8/10; 20:21 BP 125 / 73; Pulse 73; Resp 17 S; Pulse Ox 96% on R/A; jd3 21:21 BP 130 / 63; Pulse 72; Resp 17 S; Pulse Ox 96% on R/A; jd3 22:23 BP 122 / 64; Pulse 64; Resp 17 S; Pulse Ox 95% on R/A; jd3 23:23 BP 127 / 70; Pulse 61; Resp 17 S; Pulse Ox 97% on R/A; jd3 19:15 Body Mass Index 39.06 (90.72 kg, 152.40 cm) jd3 ED Course: 19:09 Patient arrived in ED. ds1 19:09 Temo Tavares, RN is Primary Nurse. jd3 19:14 Triage completed. jd3 19:16 Arm band placed on. jd3 19:18 Patient has correct armband on for positive identification. Bed in low position. Call j light in reach. Side rails up X2. Adult w/ patient. Pulse ox on. NIBP on. 19:21 Jamarcus Kwok MD is Attending Physician. mh7 19:28 Inserted saline lock: 22 gauge in left forearm, using aseptic technique. Blood dh4 collected. 20:04 Wound care: non-adherent dressing x1, petroleum dressing x2, guauze x 4, primary nurse elizabeth Plascencia at bedside to hold pressure for active bleeding and at bedside for laceration repair at this time. 21:07 Tib Fib Left XRAY In Process Unspecified. EDMS 23:21 No provider procedures requiring assistance completed. IV discontinued, intact, jd3 bleeding controlled, No redness/swelling at site. Pressure dressing applied. Administered Medications: No medications were administered Outcome: 23:01 Discharge ordered by . giovanni 23:22 Condition: stable jd3 23:22 Discharge instructions given to patient, family, Instructed on discharge instructions, follow up and referral plans. Demonstrated understanding of instructions, follow-up care. 23:33 Discharged to home via ambulance. jd3 23:33 Patient left the ED. jd3 Signatures: Dispatcher [employer] EDMS See Navarro RN RN sg Sanford, Demi ds1 Temo Tavares RN RN Joshua Ellis 4 Jamarcus Kwok MD MD 7
[2020-05-08 02:26] VITALS: TEMP 97.5
[2020-05-08 02:33] VITALS: BP 127/70; O2SAT 97
--- NOTE | 2020-05-08 11:23 | RAD REPORT ---
EXAM DESCRIPTION: RAD - Tib Fib Left - 05/07/2020 9:07 pm CLINICAL HISTORY: Injury COMPARISON: None. FINDINGS: 2 views of the left tibia/fibula. No acute fracture or dislocation. Osteopenia. Osteoarthr itic change of the knee. No radiopaque foreign body. IMPRESSION: 1. No acute fracture or dislocation. 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 The interpreting r adiologist is fully responsible for the content of the report.
== END 2020-05-07 23:33 | disposition home or self-care (01) ==
LOC: ER 19:08
PROC: 0JQP0ZZ Repair Left Lower Leg Subcutaneous Tissue and Fascia, Open Approach (ICD-10-PCS; principal; 2020-05-07)
DX: S81.812A Laceration without foreign body, left lower leg, initial encounter (principal); X58.XXXA Exposure to other specified factors, initial encounter; Y93.9 Activity, unspecified; Y92.9 Unspecified place or not applicable; Z88.6 Allergy status to analgesic agent; Z88.2 Allergy status to sulfonamides
CPT/HCPCS: 36415; 80048; 80076; 85025; 85610; 85730; 99284

== ENCOUNTER 2020-05-10 14:40 | Day surgery (SDC) | payer OTHER ==
[2020-05-10 15:32] LABS: Absolute Lymphocytes (CBC) 1.7 K/uL (0.7-4.9); Basophils % 0.7 % (0-1.3); Hematocrit 34.3 % (36.0-45.0); Lymphocytes % 23.9 % (15.3-44.8); MPV 7.8 fL (7.6-11.3); RBC Red Blood Cell Count 4.04 M/uL (3.86-4.86)
[2020-05-10] MEDS ORDERED: LIDOCAINE 1% MPF 30 ML VIAL ONE (15:55)
[2020-05-10] MEDS ORDERED: HYDROCODONE/APAP 7.5/325 MG TAB ONE (17:42)
[2020-05-10 17:43] VITALS: TEMP 98.7; O2SAT 96
[2020-05-10 18:01] VITALS: BP 142/54
--- OUTSIDE RECORDS SUMMARY | 2020-05-10 18:11 | XMS REPORT | Continuity of Care Document ---
:1950 Author Organization [facility] t Address [address] [place] [address] Care Team Providers Name Role Phone Doctor [...] ID 2020-04-04 2020-04-04 Orders Doctor HARRIS [id number] 00:00:00 00:00:00 Only UnassignedUBALDO [id number] [facility] [id number] 2019-02-04 2019-02-04 [facility] [id number] 09:34:48 23:59:00 Encounter Car [place] [id number] [place] [id number] [place] [id number] 2019-02-04 2019-02-04 Orders Doctor HARRIS [id number] 00:00:00 00:00:00 Only UnassignedUBALDO [id number] [facility] [id number] Results This patient has no known results.
--- NOTE | 2020-05-10 19:58 | OP ---
Date of Procedure: 05/10/2020 Surgeon: Floyd Berman MD Rn Security: None. Preoperative Diagnosis: Bleeding from the left leg hematoma. Postoperative Diagnosis: Bleeding from the left leg hematoma. Procedure: Temporary control of bleeding from a bleeding hematoma of the left leg. Estimated Blood Loss: Minimal. Specimen: None. Findings: Oozing venous bleeding on the left lower leg. Anesthesia: Local. Complications: None. The patient tolerated the procedure in stable condition and taken to Recovery awake and in good gener al condition. Brief History: The patient is a 69-year-old female, who has been on Xarelto for atrial fibrillation for quite some time. Most recently a dose was reduced by Dr. Israel to 10 mg daily. About several months ago, she had an injury to her left leg and developed a hematoma. The hematoma most likely res olved; however, an egg-shaped area remained in the left anterior lower leg. She accidently bumped it into something last week 8 days ago and had bleeding. The put some Steri-Strips, butterfly strips on it to try to control it, and pressure dressing which stopped, however, on Friday started bl eeding again. The patient was taken to the emergency room and had a suture and Surgicel placed and a pressure dressing applied and was told to follow up with the PCP. The patient did that today and at the PCP's office. When the dressing was removed, the patient continued to bleed, therefore, the keerthi ssing was reinforced, and the patient was sent to my office. At my office, I evaluated the patient a nd decided that I could not assess that the complete situation in the office as I did not have approp riate equipment; therefore, informed consent was obtained to take the patient to the operating room a nd explore the wound and try to control the bleeding. The patient understood risks, benefits, and al ternatives and agreed and plan of care was discussed with the as well. Procedure In Detail: The patient was brought to the OR, placed in supine position. The patient was prepped and draped in the usual sterile fashion with a tourniquet on the left thigh at 250 mmHg and t hen the dressing was opened and there was venous oozing, there was no arterial bleeding noted. There was necrotic tissue anterior approximately 3 x 4 cm in diameter. There were sutures that were visib le that were not actually helping, there was bleeding all around it, and the necrotic tissue was debr ided, and the sutures were removed that were not serving any purpose, and there was a large venous bl eeding area noted and a [id number] 3-0 Vicryl was used to control that, but the oozing continued . Subsequently at this point, as the oozing was from all the tissue and the tissue was very friable, the patient does have some edema in the legs. I opted to apply Avitene and Neha foam to help cont rol the bleeding with a pressure dressing. 4 x 4, Kerlix, Coban, and Sidney wrap were utilized for that purpose. Complete control of the bleeding was accomplished in this way. Tourniquet time was less t borja 15 minutes and the patient was taken to Recovery in good general condition. At this point, Dr. Mauro benz was contacted and told of the findings in the operating room, and advised that the patient wou ld be better served at a tertiary care center where they have access to Interventional Radiology and some embolization of the venous system may be required to help control the bleeding. We are unable t o do that at this facility. So this plan of care was discussed in detail with Dr. Durham and the antony dao and the patient will call Dr. Durham's office in the morning and will be sent to the [facility] facility at that time. In the meantime as the patient is stable and there is no further bleeding, the patient will be discharged to home. Disposition: Home. Condition: Stable. Discharge Instructions: Resume home medications and diet. Activity as tolerated. Keep dressing bao an and dry. Follow up with Dr. Durham's office. Follow up in my office shakila MCDONOUGH/DESMOND Voice ID: [id number] Report ID: [id number]
== END 2020-05-10 18:10 | disposition home or self-care (01) ==
LOC: OR 14:40
PROVIDERS: ATTEND Surgery
PROC: 0Y3J3ZZ Control Bleeding in Left Lower Leg, Percutaneous Approach (ICD-10-PCS; principal; 2020-05-10 14:00)
DX: S80.12XA Contusion of left lower leg, initial encounter (principal); W22.8XXA Striking against or struck by other objects, initial encounter; I48.91 Unspecified atrial fibrillation; Z79.01 Long term (current) use of anticoagulants; Z20.828 Contact with and (suspected) exposure to other viral communicable diseases
CPT/HCPCS: 36415; 85025; U0002

== ENCOUNTER 2020-07-31 19:51 | Emergency (ER) | payer OTHER ==
--- NOTE | 2020-08-01 00:57 | EDPHYS ---
Physician Documentation [facility] Name: Kati Morin Age: 69 yrs Sex: Female : 1950 Arrival Date: 07/31/2020 Time: 19:54 Bed 17 Private MD: ED Physician Tori Mansfield HPI: 07/31 23:41 This 69 yrs old Female presents to ER via Wheelchair with complaints of Dry ma2 Mouth, Throat soreness. 23:41 Onset: The symptoms/episode began/occurred gradually, 3 week(s) ago. Associated signs ma2 and symptoms: Pertinent negatives: dysphagia, nausea, swelling, vomiting. Severity of symptoms: At their worst the symptoms were very mild, in the emergency department the symptoms are unchanged. The patient has not experienced similar symptoms in the past. Historical: - Allergies: 20:10 sulfamethoxazole-trimethoprim; ll1 20:10 Morphine; ll1 20:10 Codeine; ll1 20:10 Fentanyl; ll1 - Home Meds: 23:04 alprazolam 1 mg Oral tab 1 tab 3 times per day [Active]; Flexeril 5 mg Oral tab 1 tab sf BID [Active]; [place] 7.5-325 mg Oral tab 1 tab every 6 hours [Active]; Xarelto 10 mg Oral tab 1 tab once daily [Active]; - PMHx: 20:10 Anxiety; Atrial Fib; Hypertension; Rheumatoid Arthritis; pulmonary HTN; ll1 - PSHx: 20:10 R shoulder; Hysterectomy; hematoma leg fixed; ll1 - Immunization history:: Flu vaccine is up to date. . - Social history:: Smoking status: Patient denies any tobacco usage or history of. - Family history:: not pertinent. ROS: 23:41 Constitutional: Negative for fever, chills, and weight loss. ma2 23:41 All other systems are negative. Exam: 23:41 Constitutional: This is a well developed, well nourished patient who is awake, alert, ma2 and in no acute distress. Head/Face: Normocephalic, atraumatic. Eyes: Pupils equal round and reactive to light, extra-ocular motions intact. Lids and lashes normal. Conjunctiva and sclera are non-icteric and not injected. Cornea within normal limits. Periorbital areas with no swelling, redness, or edema. ENT: Nares patent. No nasal discharge, no septal abnormalities noted. Tympanic membranes are normal and external auditory canals are clear. Oropharynx with no redness, swelling, or masses, exudates, or evidence of obstruction, uvula midline. Mucous membranes moist. Neck: Trachea midline, no thyromegaly or masses palpated, and no cervical lymphadenopathy. Supple, full range of motion without nuchal rigidity, or vertebral point tenderness. No Meningismus. Chest/axilla: Normal chest wall appearance and motion. Nontender with no deformity. No lesions are appreciated. Cardiovascular: Regular rate and rhythm with a normal S1 and S2. No gallops, murmurs, or rubs. Normal PMI, no JVD. No pulse deficits. Respiratory: Lungs have equal breath sounds bilaterally, clear to auscultation and percussion. No rales, rhonchi or wheezes noted. No increased work of breathing, no retractions or nasal flaring. Abdomen/GI: Soft, non-tender, with normal bowel sounds. No distension or tympany. No guarding or rebound. No evidence of tenderness throughout. Neuro: Awake and alert, GCS 15, oriented to person, place, time, and situation. Cranial nerves II-XII grossly intact. Motor strength 5/5 in all extremities. Sensory grossly intact. Cerebellar exam normal. Normal gait. Vital Signs: 20:02 BP 159 / 90; Pulse 72; Resp 17; Temp 97.5; Pulse Ox 96% on R/A; Weight 81.65 kg; Height ll1 5 ft. 0 in. (152.40 cm); Pain 0/10; 22:45 BP 158 / 106; Pulse 97; Resp 18; Pulse Ox 97% ; sf 23:00 BP 143 / 68; Pulse 77; Resp 16; Pulse Ox 93% ; sf 23:30 BP 134 / 121; Pulse 74; Pulse Ox 94% ; sf 08/01 00:26 BP 147 / 101; Pulse 65; Resp 16; Pulse Ox 95% on R/A; sf 07/31 20:02 Body Mass Index 35.15 (81.65 kg, 152.40 cm) ll1 MDM: 07/31 22:16 Patient medically screened. ma2 23:41 Differential diagnosis: sore throat vs vocal cord condition vs other condition.. she is ma2 concerned about throat cancer as her voice is more deep for the last few weeks. Data reviewed: vital signs, nurses notes. Counseling: I had a detailed discussion with the patient and/or guardian regarding: the historical points, exam findings, and any diagnostic results supporting the discharge/admit diagnosis, the presence of at least one elevated blood pressure reading (>120/80) during this emergency department visit, the need for outpatient follow up. Response to treatment: There is no appreciated change of the patient's symptoms at this time. 07/31 22:30 Order name: Neck Soft Tissue XRAY ma2 Administered Medications: No medications were administered Disposition: 08/01/20 00:56 Discharged to Home. Impression: Voice and resonance disorders. - Condition is Stable. - Discharge Instructions: Sore Throat, [id number]. - Medication Reconciliation Form, Thank You Letter, Antibiotic Education, Prescription Opioid Use form. - Follow up: Renae Manjarrez; When: Tomorrow; Reason: Continuance of care. Signatures: Dispatcher [employer] EDMS Evin Maloney PA PA jmm Alzahri, Mohammad, MD MD ma2 Frankie Munson RN RN ll1 See Alston RN RN sf Corrections: (The following items were deleted from the chart) 08/01 01:31 00:56 08/01/2020 00:56 Discharged to Home. Impression: Voice and resonance disorders. sf Condition is Stable. Forms are Medication Reconciliation Form, Thank You Letter, Antibiotic Education, Prescription Opioid Use. Follow up: Renae Manjarrez; When: Tomorrow; Reason: Continuance of care. ma2
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
[2020-08-01 02:48] VITALS: TEMP 97.5
[2020-08-01 02:52] VITALS: BP 147/101; O2SAT 95
--- NOTE | 2020-08-01 07:51 | RAD REPORT ---
EXAM DESCRIPTION: RAD - Neck Soft Tissue - 08/01/2020 12:16 am CLINICAL HISTORY: Sore throat FINDINGS: The visualized airway appears grossly normal Prevertebral soft tissue normal caliber. Mild anterior subluxation C3 on C4. Minimal posterior subluxation C4 on C5 with spondylosis. Vascular calcifications are present. If patient's symptoms persist a CT neck would be recommended
--- OUTSIDE RECORDS SUMMARY | 2020-08-02 02:18 | XMS REPORT | Clinical Summary ---
:1950 Author Organization [facility] Address [address] [place] [address] Care Team Providers Name Role Phone Unavailable Primary Care Provider Unavailable Allergies Active Allergy Reactions Severity Noted Date Comments Sulfamethoxazole-Trimethoprim 05/11/2020 Codeine 05/11/2020 Fentanyl 05/11/2020 Morpholine Analogues 05/11/2020 Medications Medication Sig Dispensed Refills Start End Date Status Date ALPRAZolam (XANAX) 1 Take 1 mg by 0 Active MG tablet mouth 3 (three) times daily . acebutoloL (SECTRAL) Take 400 mg 0 Active 400 MG capsule by mouth 2 (two) times daily. HYDROcodone-acetamin Take 1 tablet 0 Active ophen (NORCO by mouth 7.5-325) 7.5-325 mg every 6 (six) per tablet hours as needed for Pain. sildenafiL, Take 20 mg by 0 Acti ve pulm.hypertension, mouth 3 (REVATIO,VIAGRA) 20 (three) times mg tablet daily. cyclobenzaprine Take 5 mg by 0 A ctive (FLEXERIL) 5 MG mouth 3 tablet (three) times daily as needed for Muscle spasms. acetaminophen Take 650 mg 0 Acti ve (TYLENOL) 325 MG by mouth tablet every 6 (six) hours as needed for Pain. silver nitrate 25 % Apply 1 Bottle 3 Active Soln topically. 0 rivaroxaban Take by mouth 0 05/12/20 Disc ontinued (XARELTO) 10 mg Tab daily with 20 tablet dinner. cefdinir (OMNICEF) Take 2 20 capsule 0 05/15/20 Discontinued 300 MG capsule capsules (600 0 20 ( Reorder) mg total) by mouth daily for 10 days. silver nitrate Apply 100 each 0 05/12/20 Expir ed applicators 75-25 % topically 0 20 applicator once for 1 dose. cefdinir (OMNICEF) Take 2 20 capsule 0 05/25/20 300 MG capsule capsules (600 0 20 mg total) by mouth daily for 10 days. Active Problems Problem Noted Date Hematoma of left lower leg 05/12/2020 Leg hematoma, left, sequela 05/12/2020 Encounters Date Type Specialty Care Team Description 05/15/2020 Telephone Internal Medicine Jakob Beasley MD 05/11/2020 - Emergency Emergency Medicine Heber Whitaker nd of left lower leg, initial encounter (Primary Dx); 05/12/2020 MD [place] Hematoma of left lower leg; Ramos, Pulmonary hyper tension (HCC); MD Jakob Anxiety Win, Corine Vilchis MD 05/11/2020 Travel after 08/01/2019 Social History Tobacco Use Types Packs/Day Years Used Date Never Smoker Smokeless Tobacco: Never Used Alcohol Use Drinks/Week oz/Week Comments Not Currently Sex Assigned at Date Recorded Not on file Last Filed Vital Signs Vital Sign Reading Time Taken Comments Blood Pressure 102/49 05/12/2020 2:31 PM DENTAL TECHNOLOGIST Pulse 59 05/12/2020 2:31 PM DENTAL TECHNOLOGIST Temperature 37.1 C (98.7 F) 05/12/2020 1:00 PM DENTAL TECHNOLOGIST Respiratory Rate 16 05/12/2020 2:31 PM DENTAL TECHNOLOGIST Oxygen Saturation 96% 05/12/2020 2:31 PM DENTAL TECHNOLOGIST Inhaled Oxygen Concentration - - Weight 93 kg (205 lb) 05/11/2020 7:03 PM DENTAL TECHNOLOGIST Height 154.9 cm (5' 1") 05/11/2020 7:03 PM DENTAL TECHNOLOGIST Body Mass Index 38.73 05/11/2020 7:03 PM DENTAL TECHNOLOGIST Plan of Treatment Health Maintenance Due Date Last Done Comments BREAST CANCER SCREENING 1950 COLON CANCER SCREENING COLONOSCOPY 1950 PNEUMOCOCCAL 65+ YRS (1 of 1 - [id number]) 2013 MEDICARE ANNUAL WELLNESS (YEAR 2 or FIRST YEAR if no 11/22/2014 IPPE) INFLUENZA VACCINE (#1) 2020 DEPRESSION SCREENING (12+) 06/23/2020 Procedures Procedure Name Priority Date/Time Associated Comments Diagnosis CBC W/PLT COUNT & STAT 05/12/2020 6:16 Result s for this AUTO DIFFERENTIAL AM DENTAL TECHNOLOGIST procedure are in the results section. ABORH, MANUAL STAT 05/12/2020 6:16 Results fo r this AM DENTAL TECHNOLOGIST procedure are i n the results section. BLOOD GAS, VENOUS Routine 05/12/2020 6:16 Result s for this AM DENTAL TECHNOLOGIST procedure are i n the results section. CBC W/PLT COUNT & STAT 05/12/2020 6:16 Result s for this AUTO DIFFERENTIAL AM DENTAL TECHNOLOGIST procedure are in the results section. TYPE AND SCREEN, Routine 05/12/2020 4:34 Results for this AUTOMATED AM DENTAL TECHNOLOGIST procedure are i n the results section. LACTIC ACID, VENOUS STAT 05/12/2020 4:34 Resu lts for this AM DENTAL TECHNOLOGIST procedure are i n the results section. SARS-COV2/RT-PCR Routine 05/12/2020 4:05 Results for this ([facility]) AM DENTAL TECHNOLOGIST procedure are in the results section. XR CHEST 1 VIEW STAT 05/12/2020 4:01 Results for this PORTABLE/BEDSIDE AM DENTAL TECHNOLOGIST procedure a re in the results section. CBC W/PLT COUNT & STAT 05/11/2020 11:43 Result s for this AUTO DIFFERENTIAL PM DENTAL TECHNOLOGIST procedure are in the results section. PROTHROMBIN TIME/INR STAT 05/11/2020 11:43 Res ults for this PM DENTAL TECHNOLOGIST procedure are i n the results section. BASIC METABOLIC PANEL STAT 05/11/2020 11:43 Re sults for this (7) PM DENTAL TECHNOLOGIST procedure are i n the results section. CBC W/PLT COUNT & STAT 05/11/2020 11:43 Result s for this AUTO DIFFERENTIAL PM DENTAL TECHNOLOGIST procedure are in the results section. after 08/01/2019 Results ABORH, manual (05/12/2020 6:16 AM DENTAL TECHNOLOGIST) Pathologist Sig nature ABO Grouping O [facility] DICAL [place] Rh Factor POS [facility] Specimen Blood Performing Organization Address City/State/Zipcode Phone Number [facility] [address] [place] [address] CBC with platelet count + automated diff (05/12/2020 6:16 AM DENTAL TECHNOLOGIST)Only the most recent of2 resultswithin the time period is included. Pathologist Sig nature WBC 5.3 3.5 - 10.5 [facility] K/L [facility] RBC 3.19 (L) 3.93 - 5.22 [facility] M/L [facility] Hemoglobin 9.1 (L) 11.2 - 15.7 [facility] GM/DL [facility] Hematocrit 29.2 (L) 34.1 - 44.9 % [facility] MCV 91.5 79.4 - 94.8 fL [facility] MCH 28.5 25.6 - 32.2 pg [facility] MCHC 31.2 (L) 32.2 - 35.5 [facility] GM/DL [facility] RDW 15.1 (H) 11.7 - 14.4 % [facility] Platelets 188 150 - 450 K/CU [facility] MPV 9.4 9.4 - 12.3 fL [facility] nRBC 0 0 - 0 /100 WBC [facility] % Neutros 49 % [facility] % Lymphs 34 % [facility] % Monos 10 % [facility] % Eos 6 % [facility] % Baso 1 % [facility] # Neutros 2.62 1.56 - 6.13 [facility] # Lymphs 1.81 1.18 - 3.74 [facility] # Monos 0.50 (H) 0.24 - 0.36 [facility] # Eos 0.30 0.04 - 0.36 [facility] # Baso 0.04 0.01 - 0.08 [facility] Immature 0 0 - 1 % [facility] Specimen Blood Performing Organization Address City/State/Zipcode Phone Number [address] [address] CENTER Blood gas, venous (05/12/2020 6:16 AM DENTAL TECHNOLOGIST) Pathologist Sig nature pH, Joseph 7.40 7.32 - 7.42 [facility] pCO2, Joseph 51 41 - 51 mm Hg [facility] pO2, Joseph 41 (H) 25 - 40 mm Hg [facility] O2 Sat, Joseph 76.8 (H) 40.0 - 70.0 % [facility] HCO3, Joseph 31 (H) 21 - 29 mmol/L [facility] Base Excess, Joseph 5.2 (H) -2.0 - 3.0 [facility] mmol/L [facility] Patient Temperature 36.6 [facility] FIO2 28.0 [facility] Specimen Blood Performing Organization Address City/[facility]/Zipcode Phone Number [address] [address] CENTER Type and screen, automated (05/12/2020 4:34 AM DENTAL TECHNOLOGIST) ABO/RH AUTOMATED O POSITIVE [facility] Ab Scrn NEGATIVEComment: [facility] done on Echo 1 [facility] Specimen Blood Performing Organization Address City/[facility]/Zipcode Phone Number [address] [address] Lactic acid, venous (05/12/2020 4:34 AM DENTAL TECHNOLOGIST) Lactate, Venous 0.94Comment: 0.50 - 2.20 [facility] Specimen markedly mmol/L [facility] hemolyzed [place] Specimen Blood Narrative Performed At Swing Type Lathe Operator ID - PIAYA L [facility] Performing Organization Address City/State/Zipcode Phone Number [address] [address] CENTER SARS-CoV2/RT-PCR (Asymptomatic ONLY) (05/12/2020 4:05 AM DENTAL TECHNOLOGIST) SARS-COV2/RT-PCR Negative Not Detected, CARL YOUNG Negative, See [facility] external report CENTER for linked test SARS-COV-2 [facility] MANDA [facility] PERFORMING LAB [facility] Specimen Other - Nasopharyngeal wall structure (b esteban structure) Narrative Performed At Negative result for this test determines that [facility] SARS-CoV-2 RNA was not present in the specimen above the Limit of Detection (LOD). However, Negative results do not preclude SARS-CoV-2 infection and should not be used as the sole basis for treatment or patient management decisions. Negative results must be combined with clinical observations, patient history, and epidemiological information. A false negative result may occur if a specimen is improperly collected, transported or handled. A false negative result should be considered if patient's recent exposures or clinical presentation indicate that COVID-19 (SARS-CoV-2) is likely and diagnostic tests for other causes of illness are negative. Re-testing should be considered in cases of suspected false negatives. The limit of detection for this assay is 100 copies/mL. This SARS CoV-2 test is a real-time RT-PCR test intended for the qualitative detection of nucleic acid from SARS-CoV-2 in a nasopharyngeal swab specimen collected from individuals suspected of COVID-19 by their healthcare provider. This test has not been Food and Drug Administration (FDA) cleared or approved. This is a modified version of an approved Emergency Use Authorization (EUA) and is in the process of review by the FDA. Once authorized by the FDA, the issued EUA will be effective until the declaration that circumstances exist justifying the authorization of the emergency use of in vitro diagnostic tests for detection and/or diagnosis of COVID-19 is terminated under Section 564(b)(2) of the Act or the EUA is revoked under Section 564(g) of the Act. Testing was performed using the [employer] SARS-CoV-2 assay. Fact Sheet for Healthcare Providers: https://www.[employer]/laura/OL_DTCO-VlC-2 _HCP_Fact_Sheet_51-332616.pdf Fact Sheet for Healthcare Patients: https://www.[employer]/laura/UW_ULMK-FdL-4 _Patient_Fact_Sheet_EN_51-327049D9.pdf Performing Laboratory: [address] [address] Performing Organization Address City/State/Zipcode Phone Number [address] [phone] CENTER XR chest 1 view portable / bedside (05/12/2020 4:01 AM DENTAL TECHNOLOGIST) Specimen Narrative Performed At FINAL REPORT GE RIS RAD, CHEST, 1 VIEW, NON DEPT CLINICAL HISTORY: hypoxia TECHNIQUE: Single view of the chest. COMPARISON: None IMPRESSION: Low lung volumes with bilateral perihila r interstitial opacities suggestive of vascular congestion or pne umonitis. No large pleural effusion. No pneumothorax. The cardiomed iastinal silhouette is magnified by technique. Degenerative prachi nges of the spine and shoulders. Widened right AC joint noted. Signed: Jessi Wolf MD Report Verified Date/Time: 05/12/2020 04:10:32 Procedure Note Interface, External Ris In - 05/12/2020 4:12 AM DENTAL TECHNOLOGIST FINAL REPORT RAD, CHEST, 1 VIEW, NON DEPT CLINICAL HISTORY: hypoxia TECHNIQUE: Single view of the chest. COMPARISON: None IMPRESSION: Low lung volumes with bilateral perihila r interstitial opacities suggestive of vascular congestion or pne umonitis. No large pleural effusion. No pneumothorax. The cardiomed iastinal silhouette is magnified by technique. Degenerative prachi nges of the spine and shoulders. Widened right AC joint noted. Signed: Jessi Wolf MD Report Verified Date/Time: 05/12/2020 0 4:10:32 Performing Organization Address City/State/Zipcode Phone Number RIS PT/INR (05/11/2020 11:43 PM DENTAL TECHNOLOGIST) Pathologist Sig nature Protime 14.9 (H) 11.9 - 14.2 seconds [facility] INR 1.20 <=5.90 [facility] Specimen Blood Narrative Performed At Effective 11/18/2018: PT Reference Range [facility] Change New: 11.9-14.2 Previous: 11.7-14.7 RECOMMENDED COUMADIN/WARFARIN INR THERAPY RANGES STANDARD DOSE: 2.0-3.0 Includes: PROPHYLAXIS for venous thrombosis, systemic embolization; TREATMENT for venous thrombosis and/or pulmonary embolus. HIGH RISK: Target INR is 2.5-3.5 for patients wiht mechanical heart valves. Performing Organization Address City/State/Zipcode Phone Number [facility] [address] [place] [address] CENTER Basic Metabolic Panel (05/11/2020 11:43 PM DENTAL TECHNOLOGIST) Sodium 142 136 - 145 meq/L [facility] Potassium 4.3 3.5 - 5.1 meq/L [facility] Chloride 104 98 - 107 meq/L [facility] CO2 33 (H) 22 - 29 meq/L [facility] BUN 22 (H) 7 - 21 mg/dL [facility] Creatinine 0.91 0.57 - 1.25 [facility] mg/dL [facility] Glucose 92 70 - 105 mg/dL [facility] Calcium 9.0 8.4 - 10.2 [facility] mg/dL [facility] EGFR 61Comment: ESTIMATED mL/min/1.73 sq [facility] GFR IS NOT m [facility] ACCURATE [place] CREATININE CLEARANCE IN PREDICTING GLOMERULAR FILTRATION RATE. ESTIMATED GFR IS NOT APPLICABLE FOR DIALYSIS PATIENTS. Specimen Blood Narrative Performed At Swing Type Lathe Operator ID - PIAYA L [facility] Performing Organization Address City/State/Zipcode Phone Number [facility] [address] [place] [address] CENTER after 08/01/2019 Insurance Payer Benefit Plan / Subscriber ID Effective Dates Phone Addre ss Type Group MEDICARE MEDICARE A B [id number] 2013-Present Medicare AETNA - MGD CARE AETNA PPO OPEN [id number] 2013-Present PPO [facility] NAP Advance Directives For more information, please contact: [phone] Code Status Date Activated Date Inactivated Comments Full Code 05/12/2020 2:10 AM 05/12/2020 8:17 PM This code status was determined by: Patient
--- OUTSIDE RECORDS SUMMARY | 2020-08-02 02:18 | XMS REPORT | Continuity of Care Document ---
:1950 Author Organization [facility] t Address [address] [place] [address] Dr. Mosley [address] [place] [address] Care Team Providers Name Role Phone Ramos JAMA Attending Clinician Troy Whitaker MD Attending Clinician Mame Treadwell MD Attending Clinician TROY WHITAKER Attending Clinician Unavailable Doctor Unassigned, Name Attending Clinician Unavailable Aravind JAMA, S Attending Clinician MAME TREADWELL Admitting Clinician Unavailable Payers Payer Name Policy Type Policy Effective Date Expiration Date Sour ce Number MEDICAREMEDICARE A [id number] 2013 [facility] [id number] 2013[facility] [place] AETNA - MGD CAREAETNA [id number] 2013 CARL [place] PPO OPEN [facility] 00:00:00 - Medical [id number] 2013- Ce nter PresentPPO Problems Condition Condition Condition Status Onset Resolution Last Treating Co mments Source Name Details Category Date Date Treatment Clinician Date Hematoma Hematoma Disease Active 2019-06 [facility]20 [facility] - lower leg lower leg 00:00: Medi curt 00 Center Leg Leg Disease Active 2019-[address] hematoma, hematoma, 1-20 [facility] - left, left, 00:00: Medical sequela sequela 00 Center Allergies, Adverse Reactions, Alerts Allergy Allergy Status Severity Reaction(s) Onset Inactive Treating Comm ents Source Name Type Date Date Clinician Sulfamet Propensi Active 2019-[address] [facility] hoxazole ty to 07-11 [facility] - -Trimeth adverse 00:00: Medical oprim reaction 00 Center s Codeine Propensi Active 2019-[address] [facility] ty to 07-11 [facility] - adverse 00:00: Medical reaction 00 Center s Fentanyl Propensi Active 2019-[address] [facility] ty to 07-11 [facility] - adverse 00:00: Medical reaction 00 Center s Morpholi Propensi Active 2019-[address] [facility] ne ty to 07-11 [facility] - Analogue adverse 00:00: Medical s reaction 00 Center s Social History Social Habit Start Date Stop Date Quantity Comments Source Sex Assigned At [facility] Tobacco use and 2020-05-11 2020-05-11 Never used [facility] kes - exposure 00:00:00 00:00:00 [facility] Alcohol intake 2020-05-11 2020-05-[address] Ex-drinker [facility] - 00:00:00 00:00:00 (finding) [facility] Smoking Status Start Date Stop Date Source [facility] Medications Ordered Filled Start Stop Current Ordering Indication Dosage Frequency Signature Comments Components Source Medication Medication Date Date Medication? Clinician (SIG) Name Name silver 2019-[address] nitrate 07-15 topically. Cj es - % Soln 00:00: Medical 00 [place] cefdinir 2019-06- No 600mg QD Take 2 [facility] (OMNICEF) - 12-03 capsules [facility] - 300 MG 00:00: 23:59 (600 mg Medical capsule 00 :00 total) by Center mouth daily for 10 days. cefdinir 2019-06- No 600mg QD Take 2 [facility] (OMNICEF) 07-13 capsules [facility] - 300 MG 00:00: 00:00 (600 mg Medical capsule 00 :00 total) by Center mouth daily for 10 days. rivaroxaban 2019-06- No Take by [facility] (XARELTO) 07-12 mouth [facility] - 10 mg Tab 18:17: 00:00 daily with M edical tablet 04 :00 dinner. [place] ALPRAZolam 2019-06 Yes 1mg [id number] Take [address] (XANAX) 07-12 [id number] by mouth 3 [facility] - MG tablet 15:40: 3D (three) Medic al 12 times Center daily . acebutoloL 2019-06 Yes 400mg Q.5D Take [address] (SECTRAL) 1-20 mg by [facility] - 400 MG 15:40: mouth 2 Medical capsule 12 (two) Center times daily. HYDROcodone 2019-06 Yes 1{tbl} Take [address] -acetaminop 1-20 tablet by Cj es - hen (NORCO 15:40: mouth Medica l 7.5-325) 12 every 6 Center 7.5-325 mg (six) per tablet hours as needed for Pain. sildenafiL, 2019-06 Yes 20mg Q.[id number] Take [address] pulm.hypert 20 [id number] by mouth 3 [facility] - ension, 15:40: 3D (three) Medical (REVATIO, 12 times Center AGRA) 20 mg daily. tablet cyclobenzap 2019-06 Yes 5mg Take [address] rine 1-20 by mouth 3 [facility] - (FLEXERIL) 15:40: (three) Medi curt 5 MG tablet 12 times Center daily as needed for Muscle spasms. acetaminoph 2019-06 Yes 650mg Take [address] en 1-20 mg by [facility] - (TYLENOL) 15:40: mouth Medical 325 MG 12 every 6 Center tablet (six) hours as needed for Pain. silver 2019-06- No Apply [facility] nitrate -05-12 topically [facility] - applicators 00:00: 23:59 once for 1 Medical 75-25 % 00 :00 dose. Center applicator Vital Signs Vital Name Observation Time Observation Value Comments Source Systolic blood 2020-05-12 14:31:00 102 mm[Hg] [facility] pressure [facility] Center Diastolic blood 2020-05-12 14:31:00 49 mm[Hg] [facility] Center Heart rate 2020-05-12 14:31:00 59 /min [facility] - [facility] Center Respiratory rate 2020-05-12 14:31:00 16 /min [facility] - [facility] Oxygen saturation in 2020-05-12 14:31:00 96 /min [facility] by Medical Ce nter Pulse oximetry Body temperature 2020-05-12 13:00:00 37.06 [facility] Body height 2020-05-11 19:03:00 154.9 cm [facility] Body weight 2020-05-11 19:03:00 92.987 kg [facility] BMI 2020-05-11 19:03:00 38.73 kg/m2 [facility] Procedures Procedure Date / Time Performed Performing Clinician Sourc e CBC W/PLT COUNT & AUTO 2020-05-12 06:16:00 Corine Treadwell [facility] DIFFERENTIAL [facility] BLOOD GAS, VENOUS 2020-05-12 06:16:00 Corine Treadwell S t [facility] ABORH, MANUAL 2020-05-12 06:16:00 Quynh Ji [facility] LACTIC ACID, VENOUS 2020-05-12 04:34:00 Corine Treadwell [facility] TYPE AND SCREEN, 2020-05-12 04:34:00 Corine Treadwell [facility] AUTOMATED Medical [place] SARS-COV2/RT-PCR ([facility] & 2020-05-12 04:05:00 Corine Treadwell [facility] - REF LABS) [facility] XR CHEST 1 VIEW 2020-05-12 04:01:00 Corine Treadwell [facility] PORTABLE/BEDSIDE Medical Center CBC W/PLT COUNT & AUTO 2020-05-11 23:43:00 Heber Whitaker [facility] DIFFERENTIAL [facility] BASIC METABOLIC PANEL 2020-05-11 23:43:00 Heber Whitaker [facility] (7) [facility] PROTHROMBIN TIME/INR 2020-05-11 23:43:00 Heber Whitaker [facility] Plan of Care Planned Activity Planned Date Details Comments Source Future Scheduled 2020-06-23 DEPRESSION SCREENING [facility] - Test 00:00:00 (12+) [code = Medical Center DEPRESSION SCREENING (12+)] Future Scheduled 2020-02-22 INFLUENZA VACCINE (#1) [facility] - Test 00:00:00 [code = INFLUENZA Medical Ce nter VACCINE (#1)] Future Scheduled 2014-11-[address] [facility] - Test 00:00:00 WELLNESS (YEAR 2 or Medical Center FIRST YEAR if no IPPE) [code = MEDICARE ANNUAL WELLNESS (YEAR 2 or FIRST YEAR if no IPPE)] Future Scheduled 2013 PNEUMOCOCCAL 65+ [facility] - Test 00:00:00 (1 of 1 - Medical Center [id number] PCV13) [code = PNEUMOCOCCAL 65+ YRS (1 of 1 - [id number] PCV13)] Future Scheduled [address] [facility] - Test 00:00:00 [facility] [code = 890704926] Future Scheduled [address] - Test 00:00:00 [facility] colon (procedure) [code = 406628599] Encounters Start End Encounter Admission Attending Care Care Encounter Source Date/Time Date/Time Type Type Clinicians Facility Department ID 2020-04-04 2020-04-04 Orders Doctor HARRIS [id number] 00:00:00 00:00:00 Only Unassigned, UBALDO [id number] [facility] [address] [id number] 2019-02-04 2019-02-04 [facility] [id number] 09:34:48 23:59:00 Encounter [place] [id number] [place] 4.2.7.2.686 [place] [id number] 2019-02-04 2019-02-04 Orders Doctor HARRIS [id number] 00:00:00 00:00:00 Only Unassigned, UBALDO [id number] [place] [address]686 [id number] Results Test Description Test Time Test Comments Results Result Comments Source SARS-CoV2/RT-PCR (Asymptomatic ONLY) 2020-05-12 16:13:00 Test Item Value Reference Range Interpretation Comme nts SARS-COV2/RT-PCR (test code = Negative Not Detected, 54336-5) Negative, See external report for linked test SARS-COV-2 PERFORMING LAB [facility] MANDA (test code = 11841-7) ARANZA (test code = ARANZA) Negative result for this test determines that SARS-CoV-2 RNA was not present in the [...] Weathers SARS-CoV-2 assay. Fact Sheet for Healthcare Providers:https://www.pierce minor.weathers/laura/EX_TXUW-JzO-0_M CP_Fact_Sheet_51-211210.pdf Fact Sheet for Healthcare Patients:https://www.shilpi landaverde/laura/CX_HPPW-UeF-3_Uh tient_Fact_Sheet_EN_51-452601 R3.pdf Performing Laboratory:[facility] [place] [address] [facility] ([facility] & REF LABS)2020-05-12 16:13:00 Test Item Value Reference Range Interpretation Comments SARS-COV2/RT-PCR (test Negative Not Detected, Negative, code = 0308305) See external report for linked test SARS-COV-2 PERFORMING LAB [facility] MANDA (test code = 3935908) Negative result for this test determines that SARS-CoV-2 RNA was not present in the specimen above the Limit of Detection (LOD). However, Negative results do not preclude SARS-CoV-2 infection and should not be used as the sole basis for treatment or patient management decisions. Negative results mustbe combined with clinical observations, patient history, and epidemiological information. A false negative result may occur if a specimen is improperly collected, transported or handled. A false negative result should be considered if patient's recent exposures or clinical presentation indicate that COVID-19 (SARS-CoV-2) is likely and diagnostic tests for other causes of illness are negative. Re-testing should be considered in cases of suspected false negatives.The limit of detection for this assay is 100 copies/mL.This SARS CoV-2 test is a real-time RT-PCR test intended for the qualitative detection of nucleic acid from SARS-CoV-2 in a nasopharyngeal swab specimen collected from individuals susp ected of COVID-19 by their healthcare provider.This test has not been Food and Drug [...] is revoked under Section 564(g) of the Act.Testing was performed using the Weathers SARS-CoV-2 assay.Fact Sheet for Healthcare Providers:https://www.AcademixDirect.weathers/laura/ WJ_RPMQ-GoD-7_QGY_Ozxc_Dlhwk_36-807261.pdfFact Sheet for Healthcare Patients:https://www.AcademixDirect.ab zeinab/laura/HI_RIKU-QlG-3_Xkndncn_Fqdl_Rxnjt_QX_78-860220K7.pdfPerforming Laboratory:[facility] [place] [place] [address] HONG, [id number] 06:40:00 Test Item Value Reference Range Interpretation Comments ABO Grouping (test code = 2588) O Rh Factor (test code = 2589) [facility] + automated [id number] 06:31:00 Test Item Value Reference Range Interpretation Comments WBC (test code = 6690-2) 5.3 See_Comment [A utomated message] The system Filtr8 generated this result transmitted ref erence range: 3.5 - 10 .5 K/L. The refe rence range was not u sed to interpret this result as normal/abnor mal. RBC (test code = 789-8) 3.19 See_Comment L [Au tomated message] The system Filtr8 generated this result transmitted ref erence range: 3.93 - 5 .22 M/L. The refe rence range was not u sed to interpret this result as normal/abnor mal. MCHC (test code = 786-4) 31.2 See_Comment L [A utomated message] The system Filtr8 generated this result transmitted ref erence range: 32.2 - 3 5.5 GM/DL. The refe rence range was not u sed to interpret this result as normal/abnor mal. Hematocrit (test code = 29.2 % 34.1-44.9 L 4544-3) MCV (test code = 787-2) 91.5 fL 79.4-94.8 MCH (test code = 785-6) 28.5 pg 25.6-32.2 RDW (test code = 788-0) 15.1 % 11.7-14.4 H Platelets (test code = 188 See_Comment [Aut omated message] 777-3) The system Filtr8 generated this result transmitted ref erence range: 150 - 45 0 K/CU MM. The referen ce range was not u sed to interpret this result as normal/abnor mal. MPV (test code = 9.4 fL 9.4-12.3 21012-0) nRBC (test code = 413) 0 See_Comment [Aut omated message] The system Filtr8 generated this result transmitted ref erence range: 0 - 0 /1 00 WBC. The refere nce range was not u sed to interpret this result as normal/abnor mal. % Neutros (test code = 49 % 429) % Lymphs (test code = 34 % 430) % Monos (test code = 10 % 431) % Eos (test code = 432) 6 % % Baso (test code = 437) 1 % # Neutros (test code = 2.62 See_Comment [Aut omated message] 670) The system Filtr8 generated this result transmitted ref erence range: 1.56 - 6 .13 K/L. The refe rence range was not u sed to interpret this result as normal/abnor mal. # Lymphs (test code = 1.81 See_Comment [Auto mated message] 414) The system Filtr8 generated this result transmitted ref erence range: 1.18 - 3 .74 K/L. The refe rence range was not u sed to interpret this result as normal/abnor mal. # Monos (test code = 0.50 See_Comment H [Autom ated message] 415) The system Filtr8 generated this result transmitted ref erence range: 0.24 - 0 .36 K/L. The refe rence range was not u sed to interpret this result as normal/abnor mal. # Eos (test code = 416) 0.30 See_Comment [Au tomated message] The system Filtr8 generated this result transmitted ref erence range: 0.04 - 0 .36 K/L. The refe rence range was not u sed to interpret this result as normal/abnor mal. # Baso (test code = 417) 0.04 See_Comment [A utomated message] The system Filtr8 generated this result transmitted ref erence range: 0.01 - 0 .08 K/L. The refe rence range was not u sed to interpret this result as normal/abnor mal. Immature 0 % 0-1 Granulocytes-Relative (test code = 2801) Lab Interpretation (test Abnormal code = 92125-2) [facility] W/PLT COUNT & AUTO [id number] 06:31:00 Test Item Value Reference Range Interpretation Comments WHITE BLOOD CELL COUNT (BEAKER) 5.3 K/ L 3.5-10.5 (test code = 775) RED BLOOD CELL COUNT (BEAKER) 3.19 M/ L 3.93-5.22 L (test code = 761) HEMOGLOBIN (BEAKER) (test code = 9.1 GM/DL 11.2-15.7 L 410) HEMATOCRIT (BEAKER) (test code = 29.2 % 34.1-44.9 L 411) MEAN CORPUSCULAR VOLUME (BEAKER) 91.5 fL 79.4-94.8 (test code = 753) MEAN CORPUSCULAR HEMOGLOBIN 28.5 pg 25.6-32.2 (BEAKER) (test code = 751) MEAN CORPUSCULAR HEMOGLOBIN CONC 31.2 GM/DL 32.2-35.5 L (BEAKER) (test code = 752) RED CELL DISTRIBUTION WIDTH 15.1 % 11.7-14.4 H (BEAKER) (test code = 412) PLATELET COUNT (BEAKER) (test 188 K/CU MM 150-450 code = 756) MEAN PLATELET VOLUME (BEAKER) 9.4 fL 9.4-12.3 (test code = 754) NUCLEATED RED BLOOD CELLS 0 /100 WBC 0-0 (BEAKER) (test code = 413) NEUTROPHILS RELATIVE PERCENT 49 % (BEAKER) (test code = 429) LYMPHOCYTES RELATIVE PERCENT 34 % (BEAKER) (test code = 430) MONOCYTES RELATIVE PERCENT 10 % (BEAKER) (test code = 431) EOSINOPHILS RELATIVE PERCENT 6 % (BEAKER) (test code = 432) BASOPHILS RELATIVE PERCENT 1 % (BEAKER) (test code = 437) NEUTROPHILS ABSOLUTE COUNT 2.62 K/ L 1.56-6.13 (BEAKER) (test code = 670) LYMPHOCYTES ABSOLUTE COUNT 1.81 K/ L 1.18-3.74 (BEAKER) (test code = 414) MONOCYTES ABSOLUTE COUNT (BEAKER) 0.50 K/ L 0.24-0.36 H (test code = 415) EOSINOPHILS ABSOLUTE COUNT 0.30 K/ L 0.04-0.36 (BEAKER) (test code = 416) BASOPHILS ABSOLUTE COUNT (BEAKER) 0.04 K/ L 0.01-0.08 (test code = 417) IMMATURE GRANULOCYTES-RELATIVE 0 % 0-1 PERCENT (BEAKER) (test code = 2801) Blood gas, [id number] 06:27:00 Test Item Value Reference Range Interpretation Comments pH, Joseph (test code = 7.40 7.32-7.42 2746-6) pCO2, Joseph (test code = 51 See_Comment [Aut omated message] 755) The system whic h generated this result transmit sukumar reference range : 41 - 51 mm Hg. The reference range was not used to interpret this result as normal/abnormal . pO2, Joseph (test code = 41 See_Comment H [Auto mated message] 1965-2) The system whic h generated this result transmit sukumar reference range : 25 - 40 mm Hg. The reference range was not used to interpret this result as normal/abnormal . O2 Sat, Joseph (test code 76.8 % 40-70 H = 2711-0) HCO3, Joseph (test code = 31 mmol/L 21-29 H 72304-1) Base Excess, Joseph (test 5.2 mmol/L -2-3 H code = 1927-3) Patient Temperature 36.6 (test code = 8310-5) FIO2 (test code = 1819) 28 Lab Interpretation Abnormal (test code = 52109-1) [facility], [id number] 06:27:00 Test Item Value Reference Range Interpretation Comments PH VENOUS (BEAKER) (test code = 7.40 7.32-7.42 701) PCO2 VENOUS (BEAKER) (test code = 51 mm Hg 41-51 755) PO2 VENOUS (BEAKER) (test code = 41 mm Hg 25-40 H 702) O2 SATURATION VENOUS (BEAKER) 76.8 % 40.0-70.0 H (test code = 703) HCO3 VENOUS (BEAKER) (test code = 31 mmol/L 21-29 H 705) BASE EXCESS VENOUS (BEAKER) (test 5.2 mmol/L -2.0-3.0 H code = 704) PATIENT TEMPERATURE (BEAKER) (test 36.6 code = 1818) FIO2 (BEAKER) (test code = 1819) 28.0 Type and screen, [id number] 05:53:00 Test Item Value Reference Range Interpretation Comments ABO/RH AUTOMATED (BEAKER) O POSITIVE (test code = 2260) Ab Scrn (test code = 890-4) NEGATIVE done on Echo 1 [facility] CenterL[facility], [id number] 05:02:00 Test Item Value Reference Range Interpretation Comments Lactate, Venous (test 0.94 mmol/L 0.5-2.2 Specim en code = 2872) markedly hemolyzed ARANZA (test code = ARANZA) Aircraft Loadmaster Superintendent ID - ALESSANDRO L Lab Interpretation Normal (test code = 70234-2) [facility] ACID, [id number] 05:02:00 Test Item Value Reference Range Interpretation Comments LACTATE BLOOD VENOUS 0.94 mmol/L 0.50-2.20 Specime n markedly (2) (BEAKER) (test hemolyzed code = 2872) Aircraft Loadmaster Superintendent ID - ALESSANDRO LRAD, CHEST, 1 VIEW, NON [id number] 04:10:00Reason for exam:->hypoxiaShould this be performed at the bedside?->Yes [facility] 1950 Sex: FFINAL REPORT RAD, CHEST, 1 VIEW, NON DEPT CLINICAL HISTORY: hypoxia TECHNIQUE: Single view of the chest. COMPARISON: None IMPRESSION: Low lung volumes with bilateralperihilar interstitial opacities suggestive of vascular congestion or pneumonitis. No large pleural effusion. No pneumothorax. The cardiomediastinal silhouette is magnified by technique. Degenerative changes of the spine and shoulders. Widened right AC joint noted. Signed: Travis Wolf MDReport Verified Date/Time: 05/12/2020 04:10:32 XR chest 1 view portable / [id number] 04:10:00Interface, External Ris In - 05/12/2020 4:12 AM CSTFINAL REPORT RAD, CHEST, 1 VIEW, NON DEPT CLINICAL HISTORY: hypoxia TECHNIQUE: Single view of the chest. COMPARISON: None IMPR ESSION: Low lung volumes with bilateral perihilar interstitial opacities suggestive of vascular congestion or pneumonitis. No large pleural effusion. No pneumothorax. The cardiomediastinal silhouette is magnified by technique. Degenerative changes of the spine and shoulders. Widened right AC joint noted. Signed: Travis Wolf MDReport Verified Date/Time: 05/12/2020 04:10:32 [facility] Metabolic [id number] 00:06:00 Test Item Value Reference Range Interpretation Comments Sodium (test code = 142 meq/L 422-953 7304-2) Potassium (test code = 4.3 meq/L 3.5-5.1 2823-3) Chloride (test code = 104 meq/L 98-107 2075-0) CO2 (test code = 33 meq/L 22-29 H 2028-9) BUN (test code = 22 mg/dL 7-21 H 3094-0) Creatinine (test code 0.91 mg/dL 0.57-1.25 = 2160-0) Glucose (test code = 92 mg/dL 70-105 2345-7) Calcium (test code = 9.0 mg/dL 8.4-10.2 79048-4) EGFR (test code = 61 mL/min/1.73 [place] [address]-3) NOT ACCURATE CREATININE CLEARANCE IN PREDICTING GLOMERULAR FILTRATION RATE . ESTIMATED GFR I S NOT APPLICABLE FOR DIALYSIS PATIENTS. ARANZA (test code = ARANZA) Aircraft Loadmaster Superintendent ID - PIAYA L Lab Interpretation Abnormal (test code = 95386-5) [facility] METABOLIC [id number] 00:06:00 Test Item Value Reference Range Interpretation Comments SODIUM (BEAKER) 142 meq/L 136-145 (test code = 381) POTASSIUM (BEAKER) 4.3 meq/L 3.5-5.1 (test code = 379) CHLORIDE (BEAKER) 104 meq/L 98-107 (test code = 382) CO2 (BEAKER) (test 33 meq/L 22-29 H code = 355) BLOOD UREA NITROGEN 22 mg/dL 7-21 H (BEAKER) (test code = 354) CREATININE (BEAKER) 0.91 mg/dL 0.57-1.25 (test code = 358) GLUCOSE RANDOM 92 mg/dL 70-105 (BEAKER) (test code = 652) CALCIUM (BEAKER) 9.0 mg/dL 8.4-10.2 (test code = 697) EGFR (BEAKER) (test 61 mL/min/1.73 ESTIMA SUKUMAR GFR IS code = 1092) sq m NOT ACCURATE CREATININE CLEARANCE IN PREDICTING GLOMERULAR FILTRATION RATE . ESTIMATED GFR I S NOT APPLICABLE FOR DIALYSIS PATIEN TS. Aircraft Loadmaster Superintendent ID - PIAYA LPT/[id number] 23:58:00 Test Item Value Reference Interpretation Comments Range Protime (test code = 14.9 See_Comment H [Autom ated 5902-2) message] The system which generated this result transmitted reference range : 11.9 - 14.2 seconds. The reference range was not used to interpret this result as normal/abnormal . INR (test code = 1.20 See_Comment [Automated 6301-6) message] The system which generated this result transmitted reference range : <=5.90. The reference range was not used to interpret this result as normal/abnormal . ARANZA (test code = Effective 11/18/2018: ARANZA) PT Reference Range ChangeNew: 11.9-14.2 Previous: 11.7-14.7 RECOMMENDED COUMADIN/WARFARIN INR THERAPY RANGESSTANDARD DOSE: 2.0-3.0 Includes: PROPHYLAXIS for venous thrombosis, systemic embolization; TREATMENT for venous thrombosis and/or pulmonary embolus.HIGH RISK: Target INR is 2.5-3.5 for patients wiht mechanical heart valves. Lab Interpretation Abnormal (test code = 14440-0) [facility] CenterPROTHROMBIN TIME/[id number] 23:58:00 Test Item Value Reference Range Interpretation Comments PROTIME (BEAKER) (test code = 14.9 seconds 11.9-14.2 H 759) INR (BEAKER) (test code = 370) 1.20 <=5.90 Effective 11/18/2018: PT Reference Range ChangeNew: 11.9-14.2 Previous: 11.7- 14.7RECOMMENDED COUMADIN/WARFARIN INR THERAPY RANGESSTANDARD DOSE: 2.0-3.0 Includes: PROPHYLAXIS for venous thrombosis, systemic embolization; TREATMENT for venous thrombosis and/or pulmonary embolus.HIGH RISK: Target INR is2.5-3.5 for patients wiht mechanical heart valves.CBC W/PLT COUNT & AUTO [id number] 23:52:00 Test Item Value Reference Range Interpretation Comments WHITE BLOOD CELL COUNT (BEAKER) 5.6 K/ L 3.5-10.5 (test code = 775) RED BLOOD CELL COUNT (BEAKER) 3.55 M/ L 3.93-5.22 L (test code = 761) HEMOGLOBIN (BEAKER) (test code = 10.0 GM/DL 11.2-15.7 L 410) HEMATOCRIT (BEAKER) (test code = 32.0 % 34.1-44.9 L 411) MEAN CORPUSCULAR VOLUME (BEAKER) 90.1 fL 79.4-94.8 (test code = 753) MEAN CORPUSCULAR HEMOGLOBIN 28.2 pg 25.6-32.2 (BEAKER) (test code = 751) MEAN CORPUSCULAR HEMOGLOBIN CONC 31.3 GM/DL 32.2-35.5 L (BEAKER) (test code = 752) RED CELL DISTRIBUTION WIDTH 15.1 % 11.7-14.4 H (BEAKER) (test code = 412) PLATELET COUNT (BEAKER) (test 207 K/CU MM 150-450 code = 756) MEAN PLATELET VOLUME (BEAKER) 9.3 fL 9.4-12.3 L (test code = 754) NUCLEATED RED BLOOD CELLS 0 /100 WBC 0-0 (BEAKER) (test code = 413) NEUTROPHILS RELATIVE PERCENT 44 % (BEAKER) (test code = 429) LYMPHOCYTES RELATIVE PERCENT 39 % (BEAKER) (test code = 430) MONOCYTES RELATIVE PERCENT 9 % (BEAKER) (test code = 431) EOSINOPHILS RELATIVE PERCENT 7 % (BEAKER) (test code = 432) BASOPHILS RELATIVE PERCENT 1 % (BEAKER) (test code = 437) NEUTROPHILS ABSOLUTE COUNT 2.48 K/ L 1.56-6.13 (BEAKER) (test code = 670) LYMPHOCYTES ABSOLUTE COUNT 2.20 K/ L 1.18-3.74 (BEAKER) (test code = 414) MONOCYTES ABSOLUTE COUNT (BEAKER) 0.51 K/ L 0.24-0.36 H (test code = 415) EOSINOPHILS ABSOLUTE COUNT 0.37 K/ L 0.04-0.36 H (BEAKER) (test code = 416) BASOPHILS ABSOLUTE COUNT (BEAKER) 0.04 K/ L 0.01-0.08 (test code = 417) IMMATURE GRANULOCYTES-RELATIVE 0 % 0-1 PERCENT (BEAKER) (test code = 2801)
== END 2020-08-01 01:31 | disposition home or self-care (01) ==
LOC: ER 19:51
DX: R49.9 Unspecified voice and resonance disorder (principal); I10 Essential (primary) hypertension; I48.91 Unspecified atrial fibrillation; Z79.01 Long term (current) use of anticoagulants; Z88.2 Allergy status to sulfonamides; Z88.5 Allergy status to narcotic agent
CPT/HCPCS: 70360; 99283

== ENCOUNTER 2021-05-22 07:46 | Inpatient (IN) | payer OTHER ==
--- OUTSIDE RECORDS SUMMARY | 2021-05-22 07:49 | XMS REPORT | Continuity of Care Document ---
:1950 Author Organization [facility] t Address [address] [place] [address] Care Team Providers Name Role Phone CANDIDA PLATT Attending Clinician Unavailable Doctor Unassigned, Name Attending Clinician Unavailable Aravind JAMA S Attending Clinician JONY TREADWELL Admitting Clinician Unavailable Problems This patient has no known problems. Allergies, Adverse Reactions, Alerts Allergy Allergy Status Severity Reaction(s) Onset Inactive Treating Comm ents Source Name Type Date Date Clinician SULFAMET Allergy Active 2019[facility] CODEINE Allergy Active 2019[facility] FENTANYL Allergy Active 2020[facility] MORPHOLI Allergy Active 2019- [facility] A[facility] S 00 Center Medications This patient has no known medications. Vital Signs Vital Name Observation Time Observation Value Comments Source HEIGHT 2020-05-11 19:03:00 154.9 cm WEIGHT 2020-05-11 19:03:00 92.987 kg HEIGHT 2020-05-11 19:03:00 154.9 cm WEIGHT 2020-05-11 19:03:00 92.987 kg Procedures This patient has no known procedures. Encounters Start End Encounter Admission Attending Care Care Encounter Source Date/Time Date/Time Type Type Clinicians Facility Department ID 2020-05-11 2020-05-11 Emergency ER [facility] Emergency [id number] [facility] 18:42:00 18:42:00 2020-04-04 2020-04-04 Orders Doctor STEVEN [id number] 00:00:00 00:00:00 Only Unassigned, UBALDO [id number] [place] [facility] [id number] 2019-02-04 2019-02-04 [facility] [id number] 09:34:48 23:59:00 Encounter Car Carrasquillo [id number] Jeff [id number] [place] [id number] 2019-02-04 2019-02-04 Orders Doctor STEVEN [id number] 00:00:00 00:00:00 Only Unassigned, UBALDO [id number] [place] [facility] [id number] Results Test Description Test Time Test Comments Results Result Comments Source SARS-COV2/RT-PCR ([facility]) 2020-05-12 16:13:00 Test Item Value Reference Range Interpretation Comme nts SARS-COV2/RT-PCR (test code = 8979346) Negative Not Detected, N egative, See external report for linked test SARS-COV-2 PERFORMING LAB (test code = [facility] 6476804) Negative result for this test determines that [...] of the Act.Testing was performed using the Wilde SARS-CoV-2 assay.Fact Sheet for Healthcare Providers:https://www.efw-suhl.wilde/laura/ FY_UAXE-GwZ-7_RJS_Htco_Wynuv_61-186148.pdfFact Sheet for Healthcare Patients:https://www.efw-suhl.Avatrip zeinab/laura/BG_OKQB-XkE-0_Dihmhia_Phhi_Abnmu_QO_17-838630O8.pdfPerforming Laboratory:[address] [address]RMM W/PLT COUNT & AUTO [id number] 06:31:00 Test Item Value Reference Range Interpretation [...] 0-1 PERCENT (BEAKER) (test code = 2801) BLOOD GAS, [id number] 06:27:00 Test Item Value Reference Range Interpretation [...] FIO2 (BEAKER) (test code = 1819) 28.0 LACTIC ACID, [id number] 05:02:00 Test Item Value Reference Range Interpretation Comments LACTATE BLOOD VENOUS 0.94 mmol/L 0.50-2.20 Specime n markedly (2) (BEAKER) (test hemolyzed code = 2872) Cut Out Operator ID - PIAYA LRAD, CHEST, 1 VIEW, NON [id number] 04:10:00Reason for exam:->hypoxiaShould this be performed at the bedside?->Yes [facility] CENTERName: LESLIE TORREZ : 1950 Sex: FFINAL REPORT RAD, CHEST, [...] right AC joint noted. Signed: Jessi Wolf MDReport Verified Date/Time: 05/12/2020 04:10:32 BASIC METABOLIC [id number] 00:06:00 Test Item Value Reference Range Interpretation [...] S NOT APPLICABLE FOR DIALYSIS PATIEN TS. Cut Out Operator ID - PIAYA LPROTHROMBIN TIME/[id number] 23:58:00 Test Item Value Reference Range Interpretation [...] mechanical heart valves.CBC W/PLT COUNT & AUTO [id number] 23:52:00 Test Item Value Reference Range Interpretation [...] % 0-1 PERCENT (BEAKER) (test code = 6606)
[2021-05-22] MEDS ORDERED: MOXIFLOXACIN HCL 0.5% 3ML OPTH OPTH ONE (08:45)
--- NOTE | 2021-05-22 08:50 | ER ---
Nurse's Notes [facility] Name: Kati Morin Age: 70 yrs Sex: Female : 1950 Arrival Date: 05/22/2021 Time: 07:47 Bed 4 Private MD: Diagnosis: Obesity, unspecified;Unspecified acute conjunctivitis, bilateral;UTI/ Urinary tract infection, site not specified;Hypoxemia;Systolic (congestive) heart failure;Unspecified cirrhosis of liver Presentation: 05/22 07:57 Chief complaint: EMS states: They were called to the patients home this morning. It ap3 wasn't until they arrived that they were informed the patient is complaining of back pain. It is reported by EMS that the patient was A/O X's 4 on arrival, but was unable to accurately provide her medical history. 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 Coronavirus screen: At this time, the client does not indicate any symptoms associated with coronavirus-19. Ebola Screen: No symptoms or risks identified at this time. Initial Sepsis Screen:. Initial Sepsis Screen: Does the patient meet any 2 criteria? Altered Mental Status. No. Patient's initial sepsis screen is negative. Does the patient have a suspected source of infection? No. Patient's initial sepsis screen is negative. Risk Assessment: Do you want to hurt yourself or someone else? Patient reports no desire to harm self or others. Onset of symptoms was May 22, 2021. Transition of care: patient was not received from another setting of care. 07:57 Method Of Arrival: EMS: [facility] ap3 07:57 Acuity: KATE 3 ap3 Triage Assessment: 08:08 General: Appears obese, Behavior is calm, cooperative. ap3 08:09 Pain: Complains of pain in left inner canthus and inner aspect of conjunctiva of left ap3 eye and iris of left eye and outer aspect of conjuctiva of left eye and right mid back and left mid back. EENT: Eyes with exudate noted from left outer canthus, outer aspect of conjuctiva of left eye, iris of left eye, inner aspect of conjunctiva of left eye and left inner canthus Sclera/Cornea are reddened in outer aspect of conjuctiva of left eye, iris of left eye and inner aspect of conjunctiva of left eye. Neuro: Level of Consciousness is awake, alert, obeys commands, Oriented to person, place, time, situation, patient is alert and oriented X's 4. She is able to answer her Name, Date of , Where she is, and why she is here. However patient is forgetful with her personal medical history. . Gait is patient reports being bedbound. Speech is normal. Cardiovascular: Denies chest pain, 4+ bilateral lower extremity swelling. Respiratory: Airway is patent Respiratory effort is even, unlabored, Respiratory pattern is regular, symmetrical, Breath sounds are diminished bilaterally. the patient has mild shortness of breath. GI: Abdomen is round obese. 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 Swelling present in right leg and left leg. Historical: - Allergies: 08:08 Codeine; ap3 08:08 Fentanyl; ap3 08:08 Morphine; ap3 08:08 sulfamethoxazole-trimethoprim; ap3 - PMHx: 08:08 Anxiety; Atrial Fib; Hypertension; pulmonary HTN; Rheumatoid Arthritis; ap3 - Immunization history:: Adult Immunizations unknown. - Social history:: Smoking status: unknown. - Family history:: not pertinent. Screenin:15 Abuse screen: Denies threats or abuse. Nutritional screening: patient states she hasn't ap3 eaten or had anything to drink for 3 days. It is unknown as to whether it is because she hasn't been hungry, doesn't have access to the food or because her professor of violin doesn't provide her with her meals. . Tuberculosis screening: No symptoms or risk factors identified. Fall Risk Secondary diagnosis (15 points) impaired mobility, IV access (20 points). Total Martinez Fall Scale indicates Low Risk Score (25-44 pts). Fall prevention measures have been instituted. Side Rails Up X 2 Placed close to Nursing Station Frequent Obs/Assesments occuring As available Patient and Family Educated on Fall Prevention Program and strategies. Assessment: 09:00 Reassessment: patient requests nurse to phone her family and give them an update. Nurse austin3 made contact with the patients daughter, Christian Noyola at [phone]. 10:40 Reassessment: Patient and/or family updated on plan of care and expected duration. Pain ap3 level reassessed. Neuro: Level of Consciousness is awake, Oriented to person, place, time, patient is stating that her and the police are working together, and placed a brick in her rectum. She also states they wore makeup to contain their true identity. Patient also reports her places her in a hole with center blocks in her back yard each day. Nurse will confer with daughter when she arrives to bedside. . 14:27 Reassessment:. ap3 Vital Signs: 07:57 Pulse 79; Temp 98.4(TE); Pulse Ox 92% on R/A; ap3 08:17 BP 168 / 106; ap3 09:49 BP 184 / 103; Pulse 73; Resp 15; Pulse Ox 93% on R/A; ap3 11:35 BP 171 / 90; Pulse 73; Resp 16; Pulse Ox 98% on 2 lpm NC; ap3 12:32 BP 165 / 98; Pulse 74; Resp 16; Pulse Ox 98% on 2 lpm NC; ap3 13:51 BP 161 / 85; Pulse 88; Resp 17; Pulse Ox 96% on R/A; ap3 ED Course: 07:47 Patient arrived in ED. bd 07:51 Td Patricio MD is Attending Physician. prachi 07:57 Allison Saenz RN is Primary Nurse. ap3 08:08 Triage completed. ap3 08:16 Arm band placed on right wrist. ap3 08:17 Patient has correct armband on for positive identification. Placed in gown. Bed in low ap3 position. Call light in reach. Side rails up X2. compliance monitor on. Pulse ox on. NIBP on. Door closed. Noise minimized. Warm blanket given. 08:48 Elroy Durham MD is Hospitalizing Provider. prachi 08:55 CT Stone Protocol In Process Unspecified. EDMS 09:04 XRAY Chest (1 view) In Process Unspecified. EDMS 13:39 Admitting physician to see patient. ap3 14:58 Report given to CLEMENTINA Martines. ap3 14:59 No provider procedures requiring assistance completed. Patient admitted, IV remains in ap3 place. Administered Medications: 09:44 Drug: Vigamox (moxifloxacin) Drops 0.5 % 1 drops Route: Ophthalmic; Site: both eyes; ap3 09:51 Follow up: Response: No adverse reaction ap3 09:44 Drug: Cefepime 1 grams Route: IVPB; Rate: 200 ml/hr; Infused Over: 30 mins; Site: left ap3 jugular; 11:30 Follow up: Response: No adverse reaction ap3 11:30 Follow up: IV Status: Completed infusion ap3 09:44 Drug: Lasix (furosemide) 20 mg Route: IVP; Site: left jugular; ap3 11:30 Follow up: Response: No adverse reaction ap3 Point of Care Testing: Blood Glucose: 08:17 Blood Glucose: 86 mg/dL; ap3 Ranges: Outcome: 08:50 Decision to Hospitalize by Provider. prachi 14:59 Admitted to Med/surg accompanied by tech, via stretcher, room 211, with chart, Report ap3 called to Cobb 14:59 Condition: stable 14:59 Instructed on the need for admit. 15:28 Patient left the ED. ap3 Signatures: Dispatcher [employer] EDMS Cordelia Coles Corey, MD MD cha Prokisch, Amanda, RN RN ap3 Corrections: (The following items were deleted from the chart) 10:04 10:04 Reassessment: ap3 ap3
--- NOTE | 2021-05-22 08:50 | EDPHYS ---
Physician Documentation [facility] Name: Kati Morin Age: 70 yrs Sex: Female : 1950 Arrival Date: 05/22/2021 Time: 07:47 Bed 4 Private MD: ED Physician Td Patricio HPI: 05/22 08:03 This 70 yrs old Female presents to ER via Unassigned with complaints of Back prachi Pain. 08:03 The patient presents with pain that is acute, and decreased range of motion. The prachi symptoms are located in the low back, left mid back and right mid back. Onset: The symptoms/episode began/occurred 3 day(s) ago. The pain does not radiate. Associated signs and symptoms: The patient has no apparent associated signs or symptoms. The problem was sustained from unknown cause. Modifying factors: The patient symptoms are alleviated by nothing, the patient symptoms are aggravated by movement. Severity of symptoms: At their worst the symptoms were moderate, in the emergency department the symptoms are unchanged. The patient has not experienced similar symptoms in the past. Historical: - Allergies: 08:08 Codeine; ap3 08:08 Fentanyl; ap3 08:08 Morphine; ap3 08:08 sulfamethoxazole-trimethoprim; ap3 - PMHx: 08:08 Anxiety; Atrial Fib; Hypertension; pulmonary HTN; Rheumatoid Arthritis; ap3 - Immunization history:: Adult Immunizations unknown. - Social history:: Smoking status: unknown. - Family history:: not pertinent. ROS: 08:03 Constitutional: Negative for fever, chills, and weight loss, ENT: Negative for injury, prachi pain, and discharge, Neck: Negative for injury, pain, and swelling, Cardiovascular: Negative for chest pain, palpitations, and edema, Respiratory: Negative for shortness of breath, cough, wheezing, and pleuritic chest pain, Abdomen/GI: Negative for abdominal pain, nausea, vomiting, diarrhea, and constipation, : Negative for injury, bleeding, discharge, and swelling, Skin: Negative for injury, rash, and discoloration, Neuro: Negative for headache, weakness, numbness, tingling, and seizure, Psych: Negative for depression, anxiety, suicide ideation, homicidal ideation, and hallucinations, Allergy/Immunology: Negative for hives, rash, and allergies, Endocrine: Negative for neck swelling, polydipsia, polyuria, polyphagia, and marked weight changes, Hematologic/Lymphatic: Negative for swollen nodes, abnormal bleeding, and unusual bruising. 08:03 Eyes: Positive for itching, matting, pain, photophobia, redness, of the outer aspect of conjuctiva of left eye, iris of left eye, inner aspect of conjunctiva of left eye and left inner canthus. Exam: 08:03 Constitutional: This is a well developed, well nourished patient who is awake, alert, prachi and in no acute distress. Head/Face: Normocephalic, atraumatic. ENT: Nares patent. No nasal discharge, no septal abnormalities noted. Tympanic membranes are normal and external auditory canals are clear. Oropharynx with no redness, swelling, or masses, exudates, or evidence of obstruction, uvula midline. Mucous membranes moist. Neck: Trachea midline, no thyromegaly or masses palpated, and no cervical lymphadenopathy. Supple, full range of motion without nuchal rigidity, or vertebral point tenderness. No Meningismus. Chest/axilla: Normal chest wall appearance and motion. Nontender with no deformity. No lesions are appreciated. Cardiovascular: Regular rate and rhythm with a normal S1 and S2. No gallops, murmurs, or rubs. Normal PMI, no JVD. No pulse deficits. Respiratory: Lungs have equal breath sounds bilaterally, clear to auscultation and percussion. No rales, rhonchi or wheezes noted. No increased work of breathing, no retractions or nasal flaring. Abdomen/GI: Soft, non-tender, with normal bowel sounds. No distension or tympany. No guarding or rebound. No evidence of tenderness throughout. Back: No spinal tenderness. No costovertebral tenderness. Full range of motion. Skin: Warm, dry with normal turgor. Normal color with no rashes, no lesions, and no evidence of cellulitis. MS/ Extremity: Pulses equal, no cyanosis. Neurovascular intact. Full, normal range of motion. Neuro: Awake and alert, GCS 15, oriented to person, place, time, and situation. Cranial nerves II-XII grossly intact. Motor strength 5/5 in all extremities. Sensory grossly intact. Cerebellar exam normal. Normal gait. Psych: Awake, alert, with orientation to person, place and time. Behavior, mood, and affect are within normal limits. Vital Signs: 07:57 Pulse 79; Temp 98.4(TE); Pulse Ox 92% on R/A; ap3 08:17 BP 168 / 106; ap3 09:49 BP 184 / 103; Pulse 73; Resp 15; Pulse Ox 93% on R/A; ap3 11:35 BP 171 / 90; Pulse 73; Resp 16; Pulse Ox 98% on 2 lpm NC; ap3 12:32 BP 165 / 98; Pulse 74; Resp 16; Pulse Ox 98% on 2 lpm NC; ap3 13:51 BP 161 / 85; Pulse 88; Resp 17; Pulse Ox 96% on R/A; ap3 Procedures: 08:45 Peripheral line: by aseptic technique a peripheral line was placed in the left external prachi jugular vein. MDM: 07:51 Patient medically screened. prachi 08:13 Differential diagnosis: chronic back pain, Fatigue Hydronephrosis Obesity prachi Osteoarthritis Pyelonephritis Scoliosis sprain, Ureterolithiasis. Data reviewed: vital signs, nurses notes, EMS record, lab test result(s), EKG, radiologic studies, CT scan, plain films. Data interpreted: lunchroom monitor: rate is 79 beats/min, rhythm is regular, Pulse oximetry: on room air is 92 %. Test interpretation: by ED physician or midlevel provider: ECG, plain radiologic studies. Counseling: I had a detailed discussion with the patient and/or guardian regarding: the historical points, exam findings, and any diagnostic results supporting the discharge/admit diagnosis, lab results, radiology results, the need for further work-up and treatment in the hospital. 05/22 08:01 Order name: Basic Metabolic Panel [facility] 05/22 08:01 Order name: CBC with Diff; Complete Time: 09:43 [facility] 05/22 08:01 Order name: LFT's; Complete Time: 09:43 [facility] 05/22 08:01 Order name: Magnesium; Complete Time: 09:43 [facility] 05/22 08:01 Order name: NT PRO-BNP; Complete Time: 09:43 [facility] 05/22 08:01 Order name: PT-INR; Complete Time: 09:43 [facility] 05/22 08:01 Order name: Troponin (emerg Dept Use Only); Complete Time: 09:43 [facility] 05/22 08:01 Order name: XRAY Chest (1 view) [facility] 05/22 08:01 Order name: Wound Culture [facility] 05/22 08:01 Order name: Urine Culture [facility] 05/22 08:02 Order name: Basic Metabolic Panel; Complete Time: 09:43 [facility] 05/22 08:02 Order name: SARS-COV-2 RT PCR (Document "Date of Onset" if Symptomatic) [facility] 05/22 08:07 Order name: Glucose, Ancillary Testing; Complete Time: 09:43 [facility] 05/22 09:35 Order name: Urine Dipstick-Ancillary; Complete Time: 09:43 [facility] 05/22 08:01 Order name: EKG; Complete Time: 08:02 [facility] 05/22 08:01 Order name: Cardiac monitoring; Complete Time: 08:18 [facility] 05/22 08:01 Order name: IV Saline Lock; Complete Time: 08:50 [facility] 05/22 08:01 Order name: Labs collected and sent; Complete Time: 08:58 [facility] 05/22 08:01 Order name: O2 Per Protocol; Complete Time: 08:18 [facility] 05/22 08:01 Order name: O2 Sat Monitoring; Complete Time: 08:18 [facility] 05/22 08:01 Order name: US Extremity Venous W Compression Ward [facility] 05/22 08:01 Order name: Urine Dipstick-Ancillary (obtain specimen); Complete Time: 09:44 [facility] 05/22 08:03 Order name: CT Stone Protocol; Complete Time: 09:43 [facility] 05/22 09:44 Order name: US EDMS Administered Medications: 09:44 Drug: Vigamox (moxifloxacin) Drops 0.5 % 1 drops Route: Ophthalmic; Site: both eyes; ap3 09:51 Follow up: Response: No adverse reaction ap3 09:44 Drug: Cefepime 1 grams Route: IVPB; Rate: 200 ml/hr; Infused Over: 30 mins; Site: left ap3 jugular; 11:30 Follow up: Response: No adverse reaction ap3 11:30 Follow up: IV Status: Completed infusion ap3 09:44 Drug: Lasix (furosemide) 20 mg Route: IVP; Site: left jugular; ap3 11:30 Follow up: Response: No adverse reaction ap3 Point of Care Testing: Blood Glucose: 08:17 Blood Glucose: 86 mg/dL; ap3 Ranges: Critical Glucose Levels:Adult <50 mg/dl or >400 mg/dl <40 mg/dl or >180 mg/dl Disposition Summary: 05/22/21 08:50 Hospitalization Ordered Hospitalization Status: Inpatient Admission prachi Provider: Elroy Durham cha Location: Telemetry/MedSur (Inpatient) prachi Condition: Fair prachi Problem: new prachi Symptoms: have improved prachi Bed/Room Type: Standard prachi Room Assignment: 211(05/22/21 14:08) bd Diagnosis - Obesity, unspecified prachi - Unspecified acute conjunctivitis, bilateral prachi - UTI/ Urinary tract infection, site not specified prachi - Hypoxemia prachi - Systolic (congestive) heart failure prachi - Unspecified cirrhosis of liver prachi Forms: - Medication Reconciliation Form prachi - SBAR form prachi Signatures: Dispatcher [employer] EDCordelia Swift Corey, MD MD cha Prokisch, Amanda, RN RN ap3 Corrections: (The following items were deleted from the chart) 14:08 08:50 prachi bd
[2021-05-22 08:52] LABS: Absolute Lymphocytes (CBC) 1.2 K/uL (0.7-4.9); Basophils % 1.1 % (0-1.3); Hematocrit 40.9 % (36.0-45.0); Lymphocytes % 19.3 % (15.3-44.8); MPV 7.2 fL (7.6-11.3)
[2021-05-22 08:54] LABS: Protime INR 1.66
[2021-05-22] MEDS ORDERED: CEFEPIME 1 GM/VIAL ONE (09:03)
[2021-05-22] MEDS ORDERED: NA CHLORIDE 0.9% 0 ML ONE (09:03)
[2021-05-22 09:10] LABS: ALT/SGPT 14 U/L (12-78); AST/SGOT 21 U/L (15-37); Albumin 3.7 g/dL (3.4-5.0); Alkaline Phosphatase 109 U/L (45-117); BUN Blood Urea Nitrogen 18 mg/dL (7-18); Bicarbonate 30 mmol/L (21-32); Bilirubin Direct 0.5 mg/dL (0-0.2); Bilirubin Total 1.2 mg/dL (0.2-1.0); Glucose Level 91 mg/dL (74-106); Magnesium 2.2 mg/dL (1.8-2.4); NT PRO-BNP 5597 pg/mL (<125); Potassium 4.4 mmol/L (3.5-5.1); Protein, Total 7.4 g/dL (6.4-8.2); Sodium Level 144 mmol/L (136-145); Troponin (Emerg Dept Use Only) < 0.02 ng/mL (0.0-0.045)
--- NOTE | 2021-05-22 09:14 | RAD REPORT ---
EXAM DESCRIPTION: CT - Stone Protocol - 05/22/2021 8:55 am CLINICAL HISTORY: Flank pain. FLANK PAIN COMPARISON: No comparisons TECHNIQUE: Axial images were obtained without oral or IV contrast. Lack of contrast limits solid org an and vascular assessment. The [id number] spans the entirety of the system partially obscuring uppermost abdomen and lung bases. Coronal reformatted images were obtained and reviewed. All CT scans are performed using dose optimization technique as appropriate and may include automated exposure control or mA/KV adjustment according to patient size. FINDINGS: The lower lung ward are clear. Subtle nodularity is seen anterior left lobe of the liver. This suggests mild cirrhosis.The spleen is normal sized. The pancreas and adrenal glands are normal. No pathologic lymphadenopathy in the abdom en or pelvis. No urinary tract stones or obstructive uropathy. No bowel obstruction, free air, free fluid or abscess. Normal appendix noted.Moderate stool is presen t in the rectosigmoid colon. Degenerative changes are present involving the lumbar spine with mild dextroscoliosis. 12 mm degenera tive retrolisthesis of L3 on 4 is present. IMPRESSION: No urinary tract stones or obstructive uropathy. Mild liver cirrhosis is present.
[2021-05-22] MEDS ORDERED: FUROSEMIDE 20 MG/ 2ML VIAL ONE (09:33)
[2021-05-22 09:35] LABS: Urine Blood 3+ (Negative); Urine Glucose Negative (Negative); Urine Protein 2+ (Negative)
--- NOTE | 2021-05-22 09:44 | RAD REPORT ---
EXAM DESCRIPTION: US - Extrem Venous W Compress Ward - 05/22/2021 9:24 am CLINICAL HISTORY: PAIN Bilateral leg edema and swelling. COMPARISON: Extremity Venous Uni Ltd dated 09/17/2019 TECHNIQUE: Real-time sonographic interrogation of the left and right lower extremity deep venous sys tems was performed. FINDINGS: Normal compressibility, flow augmentation, phasic flow and spontaneous flow is identified in both the left and right lower extremity deep venous systems. IMPRESSION: No sonographic evidence of left or right lower extremity deep venous thrombosis.
--- NOTE | 2021-05-22 09:46 | RAD REPORT ---
EXAM DESCRIPTION: RAD - Chest Single View - 05/22/2021 9:04 am CLINICAL HISTORY: COUGH Chest pain. COMPARISON: Chest Pa And Lat (2 Views) dated 10/18/2020; Chest Single View dated 09/20/2019; Chest Sin gle View dated 09/19/2019; Chest Single View dated 09/18/2019 FINDINGS: Portable technique limits examination quality. Mild interstitial pulmonary edema is seen. The heart is significantly prominent in size. No displaced fractures. IMPRESSION: Mild CHF.
[2021-05-22] MEDS: MOXIFLOXACIN HCL 0.5% 3ML OPTH OPTH SCH ×2 (17:11→21:00)
[2021-05-22] MEDS ORDERED: ONDANSETRON 4 MG/2 ML VIAL IV PRN (17:11)
[2021-05-22] MEDS ORDERED: CEFEPIME 1 GM/VIAL IV SCH (17:11)
[2021-05-22] MEDS ORDERED: ACETAMINOPHEN 500 MG TAB PO PRN (17:11)
[2021-05-22] MEDS ORDERED: IPRATROPIUM BROM 0.5MG/2.5ML NEB PRN (17:11)
[2021-05-22] MEDS ORDERED: ALBUTEROL 2.5 MG/3 ML NEB SOL NEB PRN (17:11)
[2021-05-22 18:17] VITALS: BMI 50.4
[2021-05-22] MEDS ORDERED: NA CHLORIDE 0.9% 100 ML ONE (18:25)
[2021-05-22] MEDS: ENOXAPARIN 40 MG/0.4 ML SQ SCH (18:44)
[2021-05-22] MEDS: FUROSEMIDE 20 MG/ 2ML VIAL IV SCH (18:44)
[2021-05-22] MEDS: FAMOTIDINE 20 MG/2 ML VIAL IV SCH (18:44)
--- NOTE | 2021-05-22 22:42 | PN ---
Date of Progress Note: 05/22/2021 The patient still seems somewhat confused tonight, but not as significant as this morning. Possibili ty of drug reactions accumulatively has to be considered. We will restart the medication at 11 o'cloc k tonight and depending on the status tomorrow will start evaluating the placement. Lovenox will be used prophylactically. HR/MODL Voice ID: [id number] Report ID: [id number]
--- NOTE | 2021-05-22 22:48 | HP ---
Date of Admission: 05/22/2021 Entrance Complaint: Back pain, general malaise. History Of Present Illness: The patient was brought to the emergency room by ambulance, stated she h as been having increased back pain, the long history of this, under treatment of Pain Management on v arious medications including hydrocodone for a number of years. However, there has been more signifi cant issue and she feels that her has difficulty taking care of her at this time, and she guerrero s require moderate amount of personal care. Her status has deteriorated somewhat. There has been so me confusion as of late, which according to family members intermittently occurs 3 to 4 times a year. At one time, it was felt to be secondary to the Flexeril, which was changed. Past history also inc ludes pulmonary hypertension for which she is under the care of Dr. Ferro, CHF, CAD by Dr. Israel , and myself for various ailments. At this time, she is also complaining of some shortness of breath and cough. Past History: As above. Family History: Noncontributory. Social History: Nonsmoker, nondrinker. Physical Examination: General: The patient is a morbidly obese, somewhat dyspnea, obviously uncomfortable, elderly female. Vital Signs: Stable vital signs. Head and Neck: Normocephalic. Pupils equal, reactive to light and accommodation. Fundi negative. Trachea midline. Thyroid not palpable. ENT: Negative. Chest: High-pitched rhonchi. Rales at both bases. Adequate air entry and movement. Cardiovascular: PMI midclavicular line. Heart: Sounds normal. Peripheral pulses present and equal bilaterally. Abdomen: No organomegaly. Bowel sounds present. Extremities: +1 pitting edema. Congenital defects of fingers and arms. Rectal and Pelvic: Deferred. Impression: Acute on chronic back pain; altered mental status; congestive heart failure; pulmonary h ypertension by history; and hypertension, controlled. Plan: The patient will be admitted, given some Lasix IV. Continue with her medications, which she s tates she has not taken this morning as she was confused, so she refused them, which consist of analg esics and tranquilizing, Parafon Forte and muscle relaxant. Since she has been confused on the Flexe ril, we will hold this. She was also going to be started on Lovenox and Continuous Washer Operator will be invo lved as far as placement is concerned as this has been an ongoing issue as to where she could be plac ed. /DESMOND Voice ID: [id number]
[2021-05-22] MEDS: SILDENAFIL CITRATE 20 MG TABLET PO SCH (23:00)
[2021-05-22] MEDS: HYDROCODONE/APAP 7.5/325 MG TAB PO SCH (23:37)
[2021-05-22] MEDS: ALPRAZOLAM 1 MG TABLET PO PRN (23:56)
[2021-05-23] MEDS: SILDENAFIL CITRATE 20 MG TABLET PO SCH ×3 (05:00→23:22)
[2021-05-23] MEDS: ACEBUTOLOL PO SCH ×2 (05:00→17:00)
[2021-05-23] MEDS: HYDROCODONE/APAP 7.5/325 MG TAB PO SCH ×3 (05:27→23:21)
[2021-05-23 06:16] LABS: Absolute Lymphocytes (CBC) 1.4 K/uL (0.7-4.9); Basophils % 0.7 % (0-1.3); Hematocrit 40.4 % (36.0-45.0); Lymphocytes % 18.7 % (15.3-44.8); MPV 7.6 fL (7.6-11.3)
[2021-05-23 06:42] LABS: Potassium 3.8 mmol/L (3.5-5.1)
--- NOTE | 2021-05-23 07:45 | RAD REPORT ---
EXAM DESCRIPTION: RAD - Chest Single View - 05/23/2021 6:03 am CLINICAL HISTORY: Chest Pain COMPARISON: Chest Single View dated 05/22/2021; Chest Single View dated 05/21/2021; Chest Single Vie w dated 05/20/2021; Chest Single View dated 05/19/2021hest Single View dated 05/22/2021; Chest Pa An d Lat (2 Views) dated 10/18/2020; Chest Single View dated 09/20/2019; Chest Single View dated 09/19/2019 FINDINGS: Lines: None. Lungs: No evidence of edema or pneumonia. Pleural: No significant pleural effusions or pneumothorax. Cardiac: Cardiomegaly. Bones: No acute fractures. Other: IMPRESSION: No acute cardiopulmonary disease.
[2021-05-23] MEDS: ESCITALOPRAM 20 MG TAB PO SCH (09:00)
[2021-05-23] MEDS: MOXIFLOXACIN HCL 0.5% 3ML OPTH OPTH SCH ×2 (09:00→21:03)
[2021-05-23] MEDS ORDERED: CEFEPIME 1 GM in NA CHLORIDE 0.9% 100 ML IV SCH (09:00)
[2021-05-23] MEDS: FUROSEMIDE 20 MG/ 2ML VIAL IV SCH ×2 (09:00→18:30)
[2021-05-23] MEDS: LOSARTAN POTASSIUM 50 MG TABLET PO SCH (09:00)
[2021-05-23] MEDS: FAMOTIDINE 20 MG/2 ML VIAL IV SCH (09:01)
[2021-05-23] MEDS: CEPHALEXIN 250 MG CAP PO SCH (21:03)
--- NOTE | 2021-05-23 21:50 | PN ---
Date of Progress Note: 05/23/2021 Subjective: The patient is still somewhat confused. I had a long discussion with her as far as the mental status and physical problems that he runs into at home and insists that he can handle her, has been for the last couple of years and has noticed some significant mental changes over the p ast year and half. Has been seen by the psychiatrist. He has been comfortable with handling of the situation. Also sees Pain Management and Dr. Pretty for lungs concern. He put her on an inhaler, tomasz gill she states she could only use once rather than a couple of times a day and also seen by Cardiolo gy. She sees me from time to time as well. She is still somewhat paranoid, but not as confused as y . We will remove the catheter and see what her voiding situation is prior to being discharge d, which may occur tomorrow. We will discontinue the antibiotics IV and start her on p.o. and he is to bring her medication from home, the beta-falguni, et al. He has not been able to be contacted by [facility] as he states he has been on the phone for most of the time. There is some question a bout relationship with the rest of the family members concerned and this has been an issue as well, tomasz gill he states causes some anxiety between he and his . We will re-evaluate situation tomorrow. Difficult, best as far as psychiatric situation is concerned. Somewhat more of reasonable as far as the physical findings and treatment. HR/MODL Voice ID: [id number] Report ID: [id number]
[2021-05-24] MEDS: ACEBUTOLOL 400 MG PO SCH ×2 (04:13→17:10)
[2021-05-24] MEDS: HYDROCODONE/APAP 7.5/325 MG TAB PO SCH ×3 (04:13→22:50)
[2021-05-24] MEDS: SILDENAFIL CITRATE 20 MG TABLET PO SCH ×3 (04:14→22:50)
[2021-05-24] MEDS: ESCITALOPRAM 20 MG TAB PO SCH (10:01)
[2021-05-24] MEDS: LOSARTAN POTASSIUM 50 MG TABLET PO SCH (10:02)
[2021-05-24] MEDS: FAMOTIDINE 20 MG/2 ML VIAL IV SCH (10:03)
[2021-05-24] MEDS: CEPHALEXIN 250 MG CAP PO SCH (10:03)
[2021-05-24] MEDS: MOXIFLOXACIN HCL 0.5% 3ML OPTH OPTH SCH ×3 (10:03→21:02)
[2021-05-24] MEDS: FUROSEMIDE 20 MG/ 2ML VIAL IV SCH ×2 (10:03→17:10)
[2021-05-24] MEDS: ALPRAZOLAM 1 MG TABLET PO PRN ×2 (13:58→22:50)
[2021-05-24] MEDS: CEPHALEXIN 500 MG CAP PO SCH ×2 (13:59→21:02)
[2021-05-24] MEDS: ENOXAPARIN 40 MG/0.4 ML SQ SCH (17:10)
--- NOTE | 2021-05-24 17:27 | PN ---
Date of Progress Note: 05/24/2021 The patient seems somewhat better today, much orientated, although she still somewhat confused ____ discussing her options with her . He does want to take her home. Arrangements will be m ana to restart home health physical therapy and [facility] skills in the morning and she will be discharged by ambulance. She does not require oxygen in the past, has not required any oxygen at [facility]. Dr. Ferro did try some sleep apnea treatments, which apparently of no value and has not been continued. The other question is what antibiotic to use on her as cultures of Klebsiella, sensitive to numerous antibiotics. The patient has had recurrent problems, was seeing Urology for this, and aw aiting for the report from the urologist tomorrow to restart her long-term antibiotics. Undoubtedly, patient has baseline home mental problems from depression to anxiety. She has acute psychotic episo scottie, has been seen by a psychiatrist where the family has not particularly controlled with her presen t situation and I feel this was obviously exacerbated by the urinary tract infection. She will be fo llowed up with urinary tract situation after a week's worth of antibiotic with me. HR/MODL Voice ID: [id number] Report ID: [id number]
[2021-05-25] MEDS: ACEBUTOLOL 400 MG PO SCH ×2 (05:33→16:12)
[2021-05-25] MEDS: HYDROCODONE/APAP 7.5/325 MG TAB PO SCH ×3 (05:33→23:08)
[2021-05-25] MEDS: SILDENAFIL CITRATE 20 MG TABLET PO SCH ×3 (05:33→23:10)
[2021-05-25] MEDS: ESCITALOPRAM 20 MG TAB PO SCH (07:58)
[2021-05-25] MEDS: LOSARTAN POTASSIUM 50 MG TABLET PO SCH (07:58)
[2021-05-25] MEDS: CEPHALEXIN 500 MG CAP PO SCH ×3 (07:59→20:41)
[2021-05-25] MEDS: FAMOTIDINE 20 MG TAB PO SCH (07:59)
[2021-05-25] MEDS: FUROSEMIDE 20 MG/ 2ML VIAL IV SCH ×2 (07:59→16:12)
[2021-05-25] MEDS: MOXIFLOXACIN HCL 0.5% 3ML OPTH OPTH SCH ×2 (08:00→20:40)
[2021-05-25] MEDS: ALPRAZOLAM 1 MG TABLET PO PRN ×3 (08:09→21:11)
[2021-05-25] MEDS: ENOXAPARIN 40 MG/0.4 ML SQ SCH (16:12)
--- NOTE | 2021-05-25 18:12 | PN ---
Date of Progress Note: 05/25/2021 The patient was prepared to be discharged when her approached the nursing station, and I spok e to him and said that her hallucinations are much worse, and he did not feel that he could handle he r at home, which in fact I have been telling him for the last few days. However, he wanted to try, b ut he states that the hallucinations are more severe this morning and would like her to place in some institution, preferably Psychiatric. So I explained to him the difficulty doing this over the weeke nd. We will try and get into a unit and/or SNF on Friday. Now truly correlation with the urinary tr act situation; however, we will try and see if there is one, and we will obtain a UA today and we richard l try and keep her on the same regimen. HR/MODL Voice ID: [id number] Report ID: [id number]
[2021-05-26] MEDS: HYDROCODONE/APAP 7.5/325 MG TAB PO SCH ×3 (04:33→23:00)
[2021-05-26] MEDS: SILDENAFIL CITRATE 20 MG TABLET PO SCH ×2 (04:34→11:31)
[2021-05-26] MEDS: ACEBUTOLOL 400 MG PO SCH ×2 (04:34→17:43)
[2021-05-26 05:33] LABS: Absolute Lymphocytes (CBC) 1.2 K/uL (0.7-4.9); Basophils % 0.8 % (0-1.3); Hematocrit 35.4 % (36.0-45.0); Lymphocytes % 20.7 % (15.3-44.8); MPV 7.5 fL (7.6-11.3); RBC Red Blood Cell Count 4.05 M/uL (3.86-4.86)
[2021-05-26 05:51] LABS: Potassium 3.4 mmol/L (3.5-5.1)
[2021-05-26] MEDS ORDERED: POTASSIUM CL SA 10 MEQ TAB PO ONE (09:00)
[2021-05-26] MEDS: CEPHALEXIN 500 MG CAP PO SCH ×3 (09:24→22:01)
[2021-05-26] MEDS: FAMOTIDINE 20 MG TAB PO SCH (09:24)
[2021-05-26] MEDS: LOSARTAN POTASSIUM 50 MG TABLET PO SCH (09:24)
[2021-05-26] MEDS: ALPRAZOLAM 1 MG TABLET PO PRN ×3 (09:24→22:01)
[2021-05-26] MEDS: ESCITALOPRAM 20 MG TAB PO SCH (09:24)
[2021-05-26] MEDS: MOXIFLOXACIN HCL 0.5% 3ML OPTH OPTH SCH ×2 (09:25→22:01)
[2021-05-26] MEDS: FUROSEMIDE 20 MG/ 2ML VIAL IV SCH ×2 (09:25→17:43)
[2021-05-26 12:59] LABS: Urine Appearance CLOUDY (Clear); Urine Bilirubin NEGATIVE (Negative); Urine Blood 3+ (Negative); Urine Color YELLOW (Yellow); Urine Glucose NEGATIVE (Negative); Urine Protein 1+ (Negative); Urine Specific Gravity 1.015 (1.005-1.030); Urine pH 5.5 (5.0-7.0)
[2021-05-26 13:13] LABS: Urine Bacteria 20-50 /HPF (<20); Urine RBC 20-50 /HPF (NONE SEEN)
[2021-05-26 13:14] LABS: Urine Urothelial Cells <5 /HPF (NONE SEEN)
[2021-05-26] MEDS ORDERED: NS 0.9% VIAL 20 ML ONE (17:42)
[2021-05-26] MEDS: ENOXAPARIN 40 MG/0.4 ML SQ SCH (17:43)
[2021-05-27] MEDS: SILDENAFIL CITRATE 20 MG TABLET PO SCH ×4 (01:04→23:38)
[2021-05-27 04:06] LABS: Magnesium 1.6 mg/dL (1.8-2.4); Potassium 4.2 mmol/L (3.5-5.1)
[2021-05-27] MEDS: ACEBUTOLOL 400 MG PO SCH ×2 (05:00→16:26)
[2021-05-27] MEDS: HYDROCODONE/APAP 7.5/325 MG TAB PO SCH ×3 (05:08→23:37)
[2021-05-27] MEDS: ESCITALOPRAM 20 MG TAB PO SCH (08:59)
[2021-05-27] MEDS: FAMOTIDINE 20 MG TAB PO SCH (09:00)
[2021-05-27] MEDS: LOSARTAN POTASSIUM 50 MG TABLET PO SCH (09:00)
[2021-05-27] MEDS: CEPHALEXIN 500 MG CAP PO SCH ×3 (09:01→21:41)
[2021-05-27] MEDS: FUROSEMIDE 20 MG/ 2ML VIAL IV SCH ×2 (09:01→16:24)
[2021-05-27] MEDS: MOXIFLOXACIN HCL 0.5% 3ML OPTH OPTH SCH ×2 (09:01→21:42)
[2021-05-27] MEDS ORDERED: BISACODYL 10 MG RECTAL SUPP PR ONE (13:41)
--- NOTE | 2021-05-27 15:29 | PN ---
Date of Progress Note: 05/26/2021 Subjective: The patient seems quite calmer today, although still somewhat paranoid and confused. Of note that the Xanax in the hospital has been utilized on a p.r.n. basis and as result she has only h ad a couple of over the last few days, whereas at home she is on a daily dose 3 times possible with t his is playing a part in her mental status. Her bladder symptoms have dissipated. The original cult ure was negative and other one is being repeated with 0 E platter ultrasound tomorrow make sure there is nothing else involved and we will start with the process of getting her admitted to the [facility] [place] as well. We will start her on magnesium protocol replacement as well. HR/MODL Voice ID: [id number] Report ID: [id number]
[2021-05-27] MEDS: ENOXAPARIN 40 MG/0.4 ML SQ SCH (16:24)
[2021-05-27] MEDS: ALPRAZOLAM 1 MG TABLET PO PRN ×2 (16:31→21:41)
--- NOTE | 2021-05-27 19:14 | RAD REPORT ---
EXAM DESCRIPTION: US - Urinary Bladder - 05/27/2021 7:08 pm CLINICAL HISTORY: BLADDER EVAL COMPARISON: No comparisons FINDINGS: Bladder is only partially filled with a volume of 68 milliliters. This limits optimal asse ssment. No stone or intraluminal abnormality identified. No bladder wall thickening or mass. IMPRESSION: Limited bladder ultrasound with no significant finding.
[2021-05-28] MEDS: HYDROCODONE/APAP 7.5/325 MG TAB PO SCH ×3 (04:31→22:55)
[2021-05-28] MEDS: SILDENAFIL CITRATE 20 MG TABLET PO SCH ×3 (04:31→22:55)
[2021-05-28] MEDS: ACEBUTOLOL 400 MG PO SCH ×2 (04:32→16:47)
[2021-05-28 06:11] LABS: Absolute Lymphocytes (CBC) 1.2 K/uL (0.7-4.9); Basophils % 0.5 % (0-1.3); Hematocrit 34.8 % (36.0-45.0); Lymphocytes % 23.4 % (15.3-44.8); MPV 7.7 fL (7.6-11.3); RBC Red Blood Cell Count 3.97 M/uL (3.86-4.86)
[2021-05-28 06:19] LABS: Magnesium 1.8 mg/dL (1.8-2.4); Potassium 3.6 mmol/L (3.5-5.1)
[2021-05-28] MEDS ORDERED: POTASSIUM CL SA 10 MEQ TAB PO ONE (09:00)
[2021-05-28] MEDS: FAMOTIDINE 20 MG TAB PO SCH (09:18)
[2021-05-28] MEDS: LOSARTAN POTASSIUM 50 MG TABLET PO SCH (09:18)
[2021-05-28] MEDS: ESCITALOPRAM 20 MG TAB PO SCH (09:18)
[2021-05-28] MEDS: MOXIFLOXACIN HCL 0.5% 3ML OPTH OPTH SCH ×2 (09:20→20:56)
[2021-05-28] MEDS: FUROSEMIDE 20 MG/ 2ML VIAL IV SCH ×2 (09:23→16:47)
[2021-05-28] MEDS: CEPHALEXIN 500 MG CAP PO SCH ×3 (09:23→20:57)
--- NOTE | 2021-05-28 13:15 | PN ---
Date of Progress Note: 05/28/2021 The patient is completely disoriented this morning, delusional and hallucinating somewhat more than s he has over the past 24 hours. Discussed the disposition with her who does not want to put h er in the [place] [facility] and feels could not take care of her at home. Does agree to a Geriatric Psych iatric Unit, and therefore, we will put this into motion. We will discuss with the social service liaison and try and get the psychiatrist who has not seen her since September to see if what his evaluation of the s ituation is this morning, I have seen her over the past few days physically. The UTI has basically gone. The ultrasound of the bladder was normal. Her chemistries are back to normal, so I feel like this is her baseline and feel that the patient will require inpatient care for an undisclos ed length of time due to delusions, hallucinations. She is also somewhat paranoid at this stage. We will try and discuss the case further with her psychiatrist and put in for an acceptance at the [facility]. HR/MODL Voice ID: [id number] Report ID: [id number]
[2021-05-28] MEDS: ALPRAZOLAM 1 MG TABLET PO PRN ×2 (13:55→22:56)
[2021-05-28] MEDS: ENOXAPARIN 40 MG/0.4 ML SQ SCH (16:47)
[2021-05-28] MEDS: ACETAMINOPHEN 325 MG TABLET PO PRN (22:56)
[2021-05-29] MEDS ORDERED: ALPRAZOLAM 1 MG TABLET PO PRN (02:07)
[2021-05-29 04:43] LABS: Magnesium 1.7 mg/dL (1.8-2.4); Potassium 3.8 mmol/L (3.5-5.1)
[2021-05-29] MEDS: SILDENAFIL CITRATE 20 MG TABLET PO SCH ×3 (04:47→22:21)
[2021-05-29] MEDS: ACEBUTOLOL 400 MG PO SCH ×2 (04:48→17:41)
[2021-05-29] MEDS: HYDROCODONE/APAP 7.5/325 MG TAB PO SCH ×3 (04:49→22:21)
[2021-05-29] MEDS: CEPHALEXIN 500 MG CAP PO SCH ×3 (08:29→21:49)
[2021-05-29] MEDS: ESCITALOPRAM 20 MG TAB PO SCH (08:29)
[2021-05-29] MEDS: LOSARTAN POTASSIUM 50 MG TABLET PO SCH (08:29)
[2021-05-29] MEDS: FAMOTIDINE 20 MG TAB PO SCH (08:30)
[2021-05-29] MEDS: FUROSEMIDE 20 MG/ 2ML VIAL IV SCH ×2 (08:30→17:41)
[2021-05-29] MEDS: MOXIFLOXACIN HCL 0.5% 3ML OPTH OPTH SCH ×2 (08:30→21:50)
[2021-05-29] MEDS ORDERED: MAGNESIUM SULFATE 1 gm IVPB 1 GM/100 ML BAG IV ONE (09:00)
[2021-05-29] MEDS ORDERED: POTASSIUM 25 MEQ EFFERV TAB PO ONE (09:00)
[2021-05-29] MEDS: ACETAMINOPHEN 325 MG TABLET PO PRN (13:16)
--- NOTE | 2021-05-29 16:40 | RAD REPORT ---
EXAM DESCRIPTION: CT - Head Brain Wo Cont - 05/29/2021 4:32 pm CLINICAL HISTORY: Alteration of awareness/confusion COMPARISON: June 2020 TECHNIQUE: Computed axial tomography of the head was obtained. IV contrast was not requested. All CT scans are performed using dose optimization technique as appropriate and may include automated exposure control or mA/KV adjustment according to patient size. FINDINGS: An intracranial bleed is not seen . The ventricles are normal in caliber. No extra-axial fluid collection is noted. Hyperostosis frontalis interna Fluid within the sinuses/ mastoids is not seen. IMPRESSION: No acute intracranial abnormality is seen. If patient's symptoms persist MRI of the bra in would be recommended.
[2021-05-29] MEDS: ENOXAPARIN 40 MG/0.4 ML SQ SCH (17:41)
--- NOTE | 2021-05-29 19:54 | PN ---
Date of Progress Note: 05/29/2021 The patient is basically unchanged, maybe a little calmer than yesterday but still quite delusional. Disposition has been very difficult as her now does not want her to go to a geriatric [facility]. Only once I was able to talk to him and formal psychologist has been informed numerous times. We do not have them on staff and she could see the psychiatrist or be transferred, discharged and ad mitted to the SNF unit, which he does not want or with psych unit, which we are awaiting for approval . However, at this stage, she states he just wants to take her home. Suggested on numerous occasion s that the geriatric psych unit is the place for her to be if they in fact accept her, however he guerrero s not want this. Therefore will be discharged in a.m. HR/MODL Voice ID: [id number] Report ID: [id number]
[2021-05-29 21:43] VITALS: O2SAT 99
[2021-05-30] MEDS: ACEBUTOLOL 400 MG PO SCH (05:00)
[2021-05-30] MEDS: HYDROCODONE/APAP 7.5/325 MG TAB PO SCH (06:22)
[2021-05-30] MEDS: SILDENAFIL CITRATE 20 MG TABLET PO SCH (06:24)
[2021-05-30] MEDS: FUROSEMIDE 20 MG/ 2ML VIAL IV SCH ×2 (08:36→08:43)
[2021-05-30] MEDS: LOSARTAN POTASSIUM 50 MG TABLET PO SCH (08:36)
[2021-05-30] MEDS: FAMOTIDINE 20 MG TAB PO SCH (08:36)
[2021-05-30] MEDS: CEPHALEXIN 500 MG CAP PO SCH (08:36)
[2021-05-30] MEDS: ESCITALOPRAM 20 MG TAB PO SCH (08:36)
[2021-05-30] MEDS: MOXIFLOXACIN HCL 0.5% 3ML OPTH OPTH SCH (08:37)
[2021-05-30] MEDS ORDERED: ESCITALOPRAM 20 MG TAB PO SCH (09:00)
[2021-05-30 09:19] VITALS: BP 138/64; TEMP 98.2
[2021-05-30] MEDS ORDERED: ARIPiprazole 5 MG TAB PO SCH (21:00)
== END 2021-05-30 11:48 | disposition home health service (06) | DRG 689 ==
LOC: ER 07:46 → ERHOLD 08:51 → 2ND 15:03
PROVIDERS: ADMIT Family Medicine; ATTEND Family Medicine
DX: N39.0 Urinary tract infection, site not specified (principal); G93.41 Metabolic encephalopathy; Z68.43 Body mass index [BMI] 50.0-59.9, adult; R44.3 Hallucinations, unspecified; E66.01 Morbid (severe) obesity due to excess calories; F41.1 Generalized anxiety disorder; F32.A Depression, unspecified; I10 Essential (primary) hypertension; F22 Delusional disorders; H10.33 Unspecified acute conjunctivitis, bilateral; K74.60 Unspecified cirrhosis of liver; I25.10 Atherosclerotic heart disease of native coronary artery without angina pectoris; G89.29 Other chronic pain; M54.9 Dorsalgia, unspecified; B96.1 Klebsiella pneumoniae [K. pneumoniae] as the cause of diseases classified elsewhere; R09.02 Hypoxemia; Z88.5 Allergy status to narcotic agent; Z88.1 Allergy status to other antibiotic agents; Z20.822 Contact with and (suspected) exposure to COVID-19
CPT/HCPCS: 36415; 70450; 71045; 74176; 76377; 76857; 80048; 80076; 81001; 81003; 82947; 83735; 83880; 84132; 84484; 85025; 85610; 87070; 87077; 87086; 87088; 87186; 87205; 93005; 93970; 96365; 96366; 96375; 97110; 97161; 99285; J0692; J1650; J1940; J3475; U0003

== ENCOUNTER 2021-07-22 15:14 | Inpatient (IN) | payer OTHER ==
--- OUTSIDE RECORDS SUMMARY | 2021-07-22 15:17 | XMS REPORT | Continuity of Care Document ---
:1950 Author Organization [facility] t Address [address] [place] [address] Care Team Providers Name Role Phone CANDIDA [...] Facility Department ID 2020-05-11 2020-05-11 Emergency ER [facility] Emergency [id number] [facility] 18:42:00 18:42:00 2020-04-04 2020-04-04 Orders Doctor STEVEN [id number] 96 00:00:00 00:00:00 Only Unassigned, UBALDO [id number] [place] [facility] 42.7.2.686 [id number] 2019-02-04 2019-02-04 [facility] 1.2.840.114 [id number] 09:34:48 23:59:00 Encounter [place] [id number] [place] 4.2.7.2.686 [place] [id number] 2019-02-04 2019-02-04 Orders Doctor STEVEN 1.2.840.114 [id number] 24 00:00:00 00:00:00 Only Unassigned, UBALDO 350.1.13.10 [place] [facility] 4.2.7.2.686 [id number] Results Test Description Test Time Test Comments Results Result Comments Source SARS-COV2/RT-PCR ([facility]) 2020-05-12 16:13:00 Test Item Value Reference Range Interpretation Comme nts SARS-COV2/RT-PCR (test code = 4887144) Negative Not Detected, N egative, See external report for linked test SARS-COV-2 PERFORMING LAB (test code = [facility] 6880620) Negative result for this test determines that [...] the Wilde SARS-CoV-2 assay.Fact Sheet for Healthcare Providers:https://www.DealerTrack.wilde/laura/ WR_GFHS-AvZ-0_XNF_Tdck_Xvopg_82-836103.pdfFact Sheet for Healthcare Patients:https://www.DealerTrack.Hapara zeinab/laura/MC_TVEQ-PmR-1_Rgpersc_Bekw_Hwqhl_ZJ_64-192764J9.pdfPerforming Laboratory:[address] [address]TOH W/PLT COUNT & AUTO [id number] 06:31:00 Test Item Value Reference Range Interpretation [...] (BEAKER) (test code = 2801) BLOOD GAS, [id number] 06:27:00 Test Item Value Reference Range Interpretation [...] (test code = 1819) 28.0 LACTIC ACID, [id number] 05:02:00 Test Item Value Reference Range Interpretation Comments LACTATE BLOOD VENOUS 0.94 mmol/L 0.50-2.20 Specime n markedly (2) (BEAKER) (test hemolyzed code = 2872) Electrical Laboratory Technician ID - PIAYA LRAD, CHEST, 1 VIEW, NON [id number] 04:10:00Reason for exam:->hypoxiaShould this be performed at the bedside?->Yes [facility] : 1950 Sex: FFINAL [...] MDReport Verified Date/Time: 05/12/2020 04:10:32 BASIC METABOLIC [id number] 00:06:00 Test Item Value Reference Range Interpretation [...] S NOT APPLICABLE FOR DIALYSIS PATIEN TS. Electrical Laboratory Technician ID - PIAYA LPROTHROMBIN TIME/[id number] 23:58:00 Test Item Value Reference Range Interpretation [...] mechanical heart valves.CBC W/PLT COUNT & AUTO [id number] 23:52:00 Test Item Value Reference Range Interpretation [...] % 0-1 PERCENT (BEAKER) (test code = 3924)
[2021-07-22] MEDS ORDERED: NA CHLORIDE 0.9% 500 ML ONE (16:44)
--- NOTE | 2021-07-22 17:18 | RAD REPORT ---
EXAM DESCRIPTION: RAD - Chest Single View - 07/22/2021 4:42 pm CLINICAL HISTORY: AMS COMPARISON: Portable chest 05/23/2021 TECHNIQUE: AP portable chest image was obtained 07/22/2021 4:42 pm . FINDINGS: Lung volumes are low. No peripheral mass consolidation. Cardiac silhouette is enlarged wit h vascular engorgement. Pattern is not substantially different prior imaging. Baseline findings could mask mild failure or volume overload. No measurable pleural effusion and no pneumothorax. No acute bony abnormality seen. No acute aortic findings suspected. IMPRESSION: No new mass or consolidation. Heart, vasculature and central lung markings are prominent has a baseline which could mask mild failu re or volume overload.
[2021-07-22] MEDS ORDERED: LIDOCAINE 1% MPF 5 ML VIAL ONE (17:30)
[2021-07-22] MEDS ORDERED: NA CHLORIDE 0.9% 1,000 ML ONE (18:05)
[2021-07-22 18:10] LABS: Absolute Lymphocytes (CBC) 1.2 K/uL (0.7-4.9); Hematocrit 36.8 % (36.0-45.0); Lymphocytes % 4.4 % (15.3-44.8); MPV 7.1 fL (7.6-11.3); Protime INR 1.46; RBC Red Blood Cell Count 4.24 M/uL (3.86-4.86)
[2021-07-22 18:26] LABS: Albumin 2.2 g/dL (3.4-5.0); Bilirubin Direct 0.5 mg/dL (0-0.2); Bilirubin Total 0.7 mg/dL (0.2-1.0); Protein, Total 5.6 g/dL (6.4-8.2); Troponin High Sensitivity 19.6 pg/mL (<58.9)
[2021-07-22 18:27] LABS: Magnesium 2.2 mg/dL (1.8-2.4); Potassium 4.8 mmol/L (3.5-5.1)
[2021-07-22 19:45] LABS: Blood Morphology Comment NOT SEEN (NOT SEEN); Platelet Estimate ADEQ
--- NOTE | 2021-07-22 19:49 | RAD REPORT ---
EXAM DESCRIPTION: CT - Head Brain Wo Cont - 07/22/2021 6:59 pm CLINICAL HISTORY: MENTAL STATUS CHANGE COMPARISON: Head Brain Wo Cont dated 05/29/2021; Head Brain Wo Cont dated 12/14/2019 TECHNIQUE: Axial 5 mm thick images of the head were obtained without IV contrast. All CT scans are performed using dose optimization technique as appropriate and may include automated exposure control or mA/KV adjustment according to patient size. FINDINGS: No intracranial hemorrhage, focal mass lesion or shift of midline structures. No focal acu te cortical based infarction identifiable. No abnormal extra-axial fluid collections. No measurable a trophy. As a baseline, the patient has small lateral ventricles and relatively narrow sulci. On today 's study the reyes matter - white matter differentiation is less distinct than on the 2 preceding stud ies and the already small ventricles are slightly more narrowed. Basilar cisterns are also slightly n arrowed. Findings are consistent with a mild cerebral edema. Mastoid air cells and visualized portions of the paranasal sinuses are clear. No acute bony findings. IMPRESSION: Patient demonstrates findings of mild cerebral edema. No hemorrhage, focal mass lesion or shift of midline structures.
--- NOTE | 2021-07-22 19:57 | RAD REPORT ---
EXAM DESCRIPTION: CT - Chest Abd Pelvis Wo Con - 07/22/2021 7:03 pm CLINICAL HISTORY: AMS COMPARISON: CTANGIO CHEST FOR PE dated 04/14/2014 TECHNIQUE: Axial 5 millimeter thick images of the chest, abdomen and pelvis were obtained without IV contrast. Oral contrast was administered. All CT scans are performed using dose optimization technique as appropriate and may include automated exposure control or mA/KV adjustment according to patient size. FINDINGS: Exam is degraded by motion. No peripheral mass or consolidation identified. Atelectasis changes are present. Left upper and left lower lobe perihilar stranding changes are present that could be minimal infiltrate. This is a minima l finding. No suspicious mass lesion. No pneumothorax or pleural effusion. No chest wall mass or abn ormal axillary lymphadenopathy seen. Mediastinal and hilar regions show no mass or lymphadenopathy. Heart size is upper normal. There is minimal pericardial effusion along the inferior aspect of the h eart. The liver, spleen and pancreas show no significant findings for non contrast imaging. Liver capsule h as a nodular contour. Gallbladder and biliary tree are normal. No hydronephrosis or suspicious renal mass. Isodense masses and pyelonephritis cannot be excluded on non contrast imaging. No adrenal abnormalities. No urinary bladder abnormalities. No dilated bowel loops or focal ball bowel wall thickening. No free air, pneumatosis or free fluid. No peritoneal or retroperitoneal acute findings. Patient has fluid retention in the bilateral breast tissue and in the subcutaneous fatty tissues of the pelvis and lower abdomen. No hernia, mass or bulk y lymphadenopathy. Disc and bone degenerative changes are present. No acute or pathologic bone process identified. Patient has a very large right inguinal hematoma at least 14 x 7 cm in transverse diameter. The hemat maria del rosario is at least 12-13 cm in craniocaudal dimension though the inferior aspect of the hematoma falls o utside of the field of view. The right femoral venous access catheter is present with only approximat mundo 3 cm of the catheter still within the vessel lumen. No retroperitoneal extension. IMPRESSION: Large right inguinal hematoma at least 14 x 7 cm in transverse diameter and extending ov er a greater than 13 centimeter craniocaudal dimension. The inferior aspect of the hematoma falls out side the field of view. The associated right femoral venous access catheter extends only 3 cm into the lumen of the right com mon femoral vein. Questionable minimal left perihilar interstitial infiltrate. No peripheral mass or consolidation. No acute peritoneal or retroperitoneal process. CT abdomen and pelvis imaging shows no significant or suspicious finding.
[2021-07-22 20:01] LABS: Urine Blood 3+ (Negative); Urine Glucose Negative (Negative); Urine Protein 1+ (Negative); Urine Specific Gravity 1.015 (1.005-1.030)
[2021-07-22] MEDS ORDERED: VANCOMYCIN 1 GM/VIAL ONE (20:06)
[2021-07-22] MEDS ORDERED: NA CHLORIDE 0.9% 250 ML ONE (20:06)
[2021-07-22] MEDS ORDERED: NA CHLORIDE 0.9% 100 ML ONE (20:06)
[2021-07-22] MEDS ORDERED: CEFEPIME 1 GM/VIAL ONE (20:06)
[2021-07-22] MEDS ORDERED: NOREPINEPHRINE 4mg/D5W 250mL 4 MG/250 ML BAG IV ONE ×2 (20:14→22:38)
[2021-07-22 20:52] LABS: Urine Bacteria >50 /HPF (<20); Urine RBC TNTC /HPF (NONE SEEN); Urine Urothelial Cells <5 /HPF (NONE SEEN)
--- NOTE | 2021-07-22 21:49 | ER ---
Nurse's Notes [facility] Name: Kati Morin Age: 70 yrs Sex: Female : 1950 Arrival Date: 07/22/2021 Time: 15:14 Bed 6 Private MD: Diagnosis: Cerebral edema;UTI/ Urinary tract infection, site not specified Presentation: 07/22 15:22 Chief complaint: EMS states: Toned out for lethargic female, Pt was lethargic on jl7 arrival, reported "She's been this way for a while." Reports pt's baseline is able to communicate and will eat and take her medications but lately she has not been doing that. Also reports recent hx of diarrhea and possible UTI. Coronavirus screen: At this time, the client does not indicate any symptoms associated with coronavirus-19. Ebola Screen: No symptoms or risks identified at this time. Initial Sepsis Screen: Does the patient meet any 2 criteria? Altered Mental Status. No. Patient's initial sepsis screen is negative. Does the patient have a suspected source of infection? No. Patient's initial sepsis screen is negative. Risk Assessment: Do you want to hurt yourself or someone else? Patient reports no desire to harm self or others. Onset of symptoms is unknown. Care prior to arrival: None. 15:22 Method Of Arrival: EMS: [facility] 15:22 Acuity: KATE 3 jl7 18:32 Acuity: KATE 2 ph Historical: - Allergies: 15:26 Codeine; jl 15:26 Fentanyl; jl 15:26 Morphine; 15:26 sulfamethoxazole-trimethoprim; jl7 - Home Meds: 15:26 aripiprazole 5 mg oral tab .5 tab once daily [Active]; escitalopram oxalate 20 mg oral jl7 tab 1 tab once daily [Active]; Xanax 1 mg Oral tab 1 tab 3 times per day [Active]; acebutolol 400 mg oral cap 1 cap 2 times per day [Active]; losartan 100 mg oral tab 1 tab once daily [Active]; hydrocodone-acetaminophen 7.5-325 mg Oral tab 1 tab every 6 hours [Active]; sildenafil 20 mg oral 1 tab TID [Active]; Xarelto 10 mg oral tab 1 tab once daily [Active]; chlorzoxazone 500 mg oral tab [Active]; - PMHx: 15:26 Anxiety; Atrial Fib; Hypertension; pulmonary HTN; Rheumatoid Arthritis; jl7 - Social history:: Smoking status: unknown. Screenin:15 Abuse screen: Denies threats or abuse. Denies injuries from another. Nutritional ph screening: No deficits noted. Tuberculosis screening: No symptoms or risk factors identified. Fall Risk No fall in past 12 months (0 pts). Secondary diagnosis (15 points) impaired mobility, IV access (20 points). Ambulatory Aid- None/Bed Rest/Nurse Assist (0 pts). Gait- Weak (10 pts.). Mental Status- Overestimates/Forgets Limitations (15 pts.). Total Martinez Fall Scale indicates High Risk Score (45 or more points). Fall prevention measures have been instituted. Side Rails Up X 2 Placed Close to Nursing Station Frequent Obs/Assessments Occuring Family Present and informed to notify staff if the need to leave the bedside As available patient and family educated on Fall Prevention Program and Strategies. Assessment: 16:23 Reassessment: Patient appears in no apparent distress at this time. Patient and/or ph family updated on plan of care and expected duration. Pain level reassessed. Pt w/ difficulty IV access, Temo Bales, ASSISTANT COACH at bedside to attempt US guided IV. 17:00 General: Appears in no apparent distress. obese, Behavior is drowsy, flat, listless. ph Pain: Unable to use pain scale. Patient is disoriented. Neuro: Level of Consciousness is lethargic, obtunded, Oriented to none. Cardiovascular: Capillary refill < 3 seconds in bilateral fingers Patient's skin is warm and dry. Respiratory: Airway is patent Respiratory effort is even, unlabored. GI: Abdomen is non-distended, obese, Patient currently denies vomiting, Parent/caregiver reports the patient having diarrhea. Derm: Skin is fragile, is thin, Skin is pale. 17:45 Reassessment: Multiple IV attempts unsuccessful, dr patricio at bedside for central ph line placement. 21:20 Reassessment: The pt was recv'd at 1945. The f/c was placed and the pt's skin to her cassie kuldeep area was excoriated and coated in a white cream. The buttocks were as well. The central line gave a good blood return, but the bruising was notable and the Levophed was not helping the hypotension. The pt's does not want the pt to go "in the middle of the night to a higher level of care", despite the pt's condition, after the MD spoke with him. He wants the MRI to be done here and then make a determination. The pt's acknowledges understanding of the pt's condition and the need for a higher of level of care, given that she needs to be seen by neurosurg. The pt mumbles "let me ", "why", etc. She does not respond to even the . . 22:38 General: The pt's is speaking with the house sup, as he continues to refuse cassie ABGs and any transfer to a higher level of care. . 22:50 General: The pt has been assigned a room in ICU, bed 3. The is at bedside and cassie was informed by registration that the pt has a bed. . 22:55 General: They will call when they are able to accept report, as they are assisting cassie another critical pt, at this time. . 23:22 General: Pt readied for transport. Awaiting another staff member. . cassie 23:52 General: Pt taken to ICU, bed 3, via stretcher with another nurse and on the monitor. . cassie Vital Signs: 15:22 BP 97 / 70; Pulse 77; Resp 18; Temp 97.9; Pulse Ox 97% ; Weight 136.08 kg; Height 5 ft. jl7 0 in. (152.40 cm); 17:35 BP 113 / 60; Pulse 68; Resp 18; Pulse Ox 93% on R/A; ph 18:35 BP 72 / 55; Pulse 73; Resp 18; Pulse Ox 92% on R/A; ph 20:15 BP 47 / 19; Pulse 72; Resp 18; Pulse Ox 95% on 2 lpm NC; cassie 21:20 BP 96 / 51; Pulse 73; Resp 18; Pulse Ox 95% on R/A; cassie 22:37 BP 91 / 65; Pulse 76; Resp 18; Pulse Ox 94% on R/A; cassie 23:08 BP 72 / 61; Pulse 73; Resp 18; Pulse Ox 95% on R/A; cassie 15:22 Body Mass Index 58.59 (136.08 kg, 152.40 cm) jl7 Vitals: 18:35 Cardiac Rhythm Assessment Atrial fibrillation. ph ED Course: 15:14 Patient arrived in ED. ds1 15:16 Temo Bales, FEROZ is PHCP. pm1 15:16 Td Patricio MD is Attending Physician. pm1 15:26 Triage completed. jl7 15:26 Arm band placed on right wrist. jl7 16:15 Whitney Orozco, RN is Primary Nurse. ph 16:16 Patient has correct armband on for positive identification. Bed in low position. Call ph light in reach. Side rails up X2. forensic anthropologist on. Pulse ox on. NIBP on. Door closed. Noise minimized. Warm blanket given. 16:42 XRAY Chest (1 view) In Process Unspecified. EDMS 17:50 Assisted provider with central line placement. Set up central line tray. Triple lumen ph line placed in right femoral. Line placed by Td Patricio MD Placement verified by blood return, Dressed with Tape, Tegaderm, Blood was collected. Patient tolerated well. Before procedure, did Practitioner(s) obtain informed consent? Yes. Patient \\T\\ family education about procedure, CLABSI prevention and S/S of infection? Yes. Time-out/Briefing performed prior to start of procedure? Yes. Was handwashing/sanitizing done immediately prior to procedure? Yes. Was patient positioned to in a way to prevent air embolism? Yes. Was procedure site sterilized? Yes, with Was the site allowed to dry? Yes. Was local anesthetic and/or sedation utilized? Yes. During the procedure, did the Practitioner(s) maintain a sterile field? Yes. Were unused ports clamped during insertion? Yes. Was a 2nd qualified MD obtained after 3 unsuccessful insertion attempts? Yes. Was blood aspirated from each lumen? Yes. After the procedure, did the Practitioner(s) clean the site and apply a sterile dressing? Yes. 18:59 CT Head Brain wo Cont In Process Unspecified. EDMS 19:04 Chest Abd Pelvis Wo Con In Process Unspecified. EDMS 19:45 Boone cath inserted, using sterile technique, 16 Fr., by me, balloon inflated, to cassie gravity drainage, urine specimen collected. 21:26 Urine Culture Sent. cassie 21:48 Gokul Wilson is Hospitalizing Provider. pm1 23:11 to ICU bed 3 with another staff member, due to her girth and inability to assist. cassie Report called to ICU. Taken on monitor. Administered Medications: 16:15 Drug: NS 0.9% 1000 ml Route: IV; Rate: 1000 ml; Site: right femoral; ph 20:15 Follow up: IV Status: Completed infusion; IV Intake: 1000ml cassie 20:15 Drug: Cefepime 1 grams Route: IVPB; Rate: 200 ml/hr; Infused Over: 30 mins; Site: Other;cassie 20:20 Drug: Levophed (norepinephrine) (4 mg/250 mL D5W 4 mcg/min Route: IV; Rate: calculated as6 rate; Site: right femoral; Intake: 20:15 IV: 1000ml; Total: 1000ml. cassie Outcome: 21:48 Decision to Hospitalize by Provider. pm1 22:53 critical cassie 22:55 Admitted to ICU cassie 23:53 Patient left the ED. cassie Signatures: Dispatcher [employer] EDVA Camacho, Slime ds1 Whitney Orozco, RN RN ph Temo Bales, FEROZ ASSISTANT COACH pm1 Parviz Ferrer RN RN jl7 Donte Trujillo RN RN as6 Belinda Nayak RN RN cassie Corrections: (The following items were deleted from the chart) 21:21 20:53 BP 128 / 68; Pulse 70bpm; Resp 18bpm; cassie cassie
--- NOTE | 2021-07-22 21:49 | EDPHYS ---
Physician Documentation [facility] Name: Kati Morin Age: 70 yrs Sex: Female : 1950 Arrival Date: 07/22/2021 Time: 15:14 Bed 6 Private MD: ED Physician Td Patricio HPI: 07/22 16:09 This 70 yrs old Female presents to ER via EMS with complaints of Decreasd pm1 responsiveness. 16:09 The patient presents with decreased responsiveness. Onset: The symptoms/episode pm1 began/occurred 3 day(s) ago. Possible causes: unknown, believes that it might be related to medications or UTI. He has been decreasing her medications that he attributes to possible sleepiness. He is half dosing her xanax, norco, and her two new psychiatric medications. Associated signs and symptoms: Pertinent positives: diarrhea, Pertinent negatives: vomiting, cough, fever. 16:09 Current symptoms: In the emergency department the patient's symptoms have worsened. pm1 Patient's baseline: Neuro: alert and fully oriented, Ambulation: unable to walk. Historical: - Allergies: 15:26 Codeine; jl7 15:26 Fentanyl; jl7 15:26 Morphine; jl7 15:26 sulfamethoxazole-trimethoprim; jl7 - Home Meds: 15:26 aripiprazole 5 mg oral tab .5 tab once daily [Active]; escitalopram oxalate 20 mg oral jl7 tab 1 tab once daily [Active]; Xanax 1 mg Oral tab 1 tab 3 times per day [Active]; acebutolol 400 mg oral cap 1 cap 2 times per day [Active]; losartan 100 mg oral tab 1 tab once daily [Active]; hydrocodone-acetaminophen 7.5-325 mg Oral tab 1 tab every 6 hours [Active]; sildenafil 20 mg oral 1 tab TID [Active]; Xarelto 10 mg oral tab 1 tab once daily [Active]; chlorzoxazone 500 mg oral tab [Active]; - PMHx: 15:26 Anxiety; Atrial Fib; Hypertension; pulmonary HTN; Rheumatoid Arthritis; jl7 - Social history:: Smoking status: unknown. ROS: 16:09 Unable to obtain ROS due to altered mental status, history of obtained from . pm1 16:09 Cardiovascular: Negative for chest pain, palpitations, and edema, Respiratory: Negative pm1 for shortness of breath, cough, wheezing, and pleuritic chest pain. 16:09 Back: Negative for injury and pain, MS/Extremity: Negative for injury and deformity, Skin: Negative for injury, rash, and discoloration. 16:09 Constitutional: Positive for fatigue, poor PO intake, Negative for fever. 16:09 Abdomen/GI: Positive for diarrhea, Negative for abdominal pain, nausea and vomiting, constipation. 16:09 Neuro: Positive for altered mental status. 16:09 All other systems are negative. Exam: 16:09 Constitutional: This is a well developed, well nourished patient who is awake, alert, pm1 and in no acute distress. Head/Face: Normocephalic, atraumatic. 16:09 Skin: Warm, dry with normal turgor. Normal color with no rashes, no lesions, and no evidence of cellulitis. 16:09 Eyes: Exam is negative for acute changes. 16:09 Cardiovascular: Exam negative for Rate: normal, Rhythm: regular, Pulses: no pulse deficits are appreciated, Edema: Lower extremity edema 3+ bilateral. 16:09 Respiratory: Exam negative for acute changes, respiratory distress, shortness of breath. 16:09 Abdomen/GI: Inspection: obese Palpation: soft, in all quadrants, mild abdominal tenderness, in the right upper quadrant and left upper quadrant. 16:09 Neuro: Mentation: responsive to pain. Vital Signs: 15:22 BP 97 / 70; Pulse 77; Resp 18; Temp 97.9; Pulse Ox 97% ; Weight 136.08 kg; Height 5 ft. jl7 0 in. (152.40 cm); 17:35 BP 113 / 60; Pulse 68; Resp 18; Pulse Ox 93% on R/A; ph 18:35 BP 72 / 55; Pulse 73; Resp 18; Pulse Ox 92% on R/A; ph 20:15 BP 47 / 19; Pulse 72; Resp 18; Pulse Ox 95% on 2 lpm NC; cassie 21:20 BP 96 / 51; Pulse 73; Resp 18; Pulse Ox 95% on R/A; cassie 22:37 BP 91 / 65; Pulse 76; Resp 18; Pulse Ox 94% on R/A; cassie 23:08 BP 72 / 61; Pulse 73; Resp 18; Pulse Ox 95% on R/A; cassie 15:22 Body Mass Index 58.59 (136.08 kg, 152.40 cm) jl7 Procedures: 18:24 Central Line: the site was prepped with Betadine, in sterile fashion, a triple lumen prachi catheter was inserted, in the right femoral vein, in 2 attempts. placement was verified, by blood return, the site was dressed with using sterile technique, the patient tolerated the procedure, well. MDM: 15:17 Patient medically screened. [facility] 17:57 Data reviewed: vital signs. pm1 20:21 Physician consultation: Chris Mejia MD regarding consult, patient's condition, pm1 Discuss with patient's poor prognosis and treatment options. Transfer for more aggressive treatment options and if he wants to keep the patient here MRI can be done but there are limited treatment options here. 20:49 Counseling: I had a detailed discussion with the patient and/or guardian regarding: the pm1 historical points, exam findings, and any diagnostic results supporting the discharge/admit diagnosis, lab results, radiology results, discussion with Dr. Brunson and Dr. Mejia. Recommended transfer for the ability to provide more aggressive treatment for cerebral edema based on Dr. Mejia's impression of likely ischemic event. 21:16 ED course: Dr. Kwok was not able to place a central line to left groin area due to pm1 body habitus. Does not recommend subclavian central line. Recommends picc or mid line placement. 21:31 Physician consultation: Chris Mejia MD Informed him that the patient's and pm1 daughter do not want her to be transferred. Patient's wants to be with her and would like a MRI prior to making a transfer decision despite explaining to him that it would be in the patient's interest for me to transfer her since there are no interventions for her cerebral edema here. 21:49 ED course: Patient's is refusing ABG. Will get a VBG. pm1 07/22 15:27 Order name: Basic Metabolic Panel; Complete Time: 18:44 pm07/22 15:27 Order name: CBC with Diff; Complete Time: 19:57 pm07/22 15:27 Order name: LFT's; Complete Time: 18:44 pm07/22 15:27 Order name: Magnesium; Complete Time: 18:44 pm07/22 15:27 Order name: NT PRO-BNP; Complete Time: 18:44 pm07/22 15:27 Order name: PT-INR; Complete Time: 18:44 pm07/22 15:27 Order name: Troponin HS; Complete Time: 18:44 pm07/22 15:27 Order name: Urine Microscopic Only; Complete Time: 22:31 pm07/22 15:27 Order name: Procalcitonin; Complete Time: 18:44 pm07/22 15:27 Order name: Lactate; Complete Time: 18:44 pm07/22 15:46 Order name: COVID-19 SARS RT PCR (Document "Date of Onset" if Symptomatic) 07/22 15:47 Order name: SARS-COV-2 RT PCR; Complete Time: 19:57 EDMS 07/22 16:09 Order name: Blood Culture Adult (2) 07/22 17:34 Order name: Glucose, Ancillary Testing; Complete Time: 17:55 EDMS 07/22 15:27 Order name: CT Head Brain wo Cont; Complete Time: 19:57 pm07/22 15:27 Order name: XRAY Chest (1 view); Complete Time: 17:55 pm07/22 17:57 Order name: AMMONIA; Complete Time: 18:44 pm07/22 18:33 Order name: Chest Abd Pelvis Wo Con; Complete Time: 20:09 EDMS 07/22 19:45 Order name: Manual Differential; Complete Time: 19:57 EDMS 07/22 20:00 Order name: Urine Dipstick-Ancillary; Complete Time: 20:09 EDMS 07/22 20:21 Order name: ABG 07/22 20:53 Order name: Urine Culture EDMS 07/22 15:27 Order name: EKG; Complete Time: 15:28 pm07/22 15:27 Order name: Cardiac monitoring; Complete Time: 16:22 pm07/22 15:27 Order name: EKG - Nurse/Tech; Complete Time: 19:23 pm07/22 15:27 Order name: IV Saline Lock; Complete Time: 18:40 pm07/22 15:27 Order name: Labs collected and sent; Complete Time: 18:40 pm07/22 15:27 Order name: O2 Per Protocol; Complete Time: 16:22 pm1 01/30 15:27 Order name: O2 Sat Monitoring; Complete Time: 16:22 pm1 07/22 15:27 Order name: Urine Dipstick-Ancillary (obtain specimen); Complete Time: 22:18 pm1 07/22 17:55 Order name: Boone; Complete Time: 20:30 pm1 07/22 22:05 Order name: CONS Physician Consult EDMS Administered Medications: 16:15 Drug: NS 0.9% 1000 ml Route: IV; Rate: 1000 ml; Site: right femoral; ph 20:15 Follow up: IV Status: Completed infusion; IV Intake: 1000ml cassie 20:15 Drug: Cefepime 1 grams Route: IVPB; Rate: 200 ml/hr; Infused Over: 30 mins; Site: Other;cassie 20:20 Drug: Levophed (norepinephrine) (4 mg/250 mL D5W 4 mcg/min Route: IV; Rate: calculated as6 rate; Site: right femoral; Disposition: 07/23 10:32 Co-signature as Attending Physician, Td Patricio MD I agree with the assessment and prachi plan of care. Chart complete. Disposition Summary: 07/22/21 21:48 Hospitalization Ordered Hospitalization Status: Inpatient Admission pm1 Provider: Gokul Wilson pm1 Location: Intensive Care Unit pm1 Condition: Serious pm1 Problem: new pm1 Symptoms: have improved pm1 Bed/Room Type: Standard pm1 Room Assignment: 3-(07/22/21 22:06) reid Diagnosis - Cerebral edema pm1 - UTI/ Urinary tract infection, site not specified pm1 Forms: - Medication Reconciliation Form pm1 - SBAR form pm1 Signatures: Dispatcher [employer] Td Kelsey MD MD cha Ballard, Brenda RN Whitney Granados RN RN ph Marinas, Patrick, NP MOBILE HOME TECHNICIAN pm1 Parviz Ferrer RN RN jl7 Slawson, Ashby, RN RN as6 Belinda Nayak RN RN bo Corrections: (The following items were deleted from the chart) 07/22 17:55 15:27 Boone ordered. pm1 pm1 18:03 15:27 Abdomen Pelvis W Con+CT.RAD.BRZ ordered. EDMS EDMS 18:33 17:56 Chest Abdomen Pelvis W Con+CT.RAD.BRZ ordered. EDMS EDMS 22:06 21:48 pm1 reid
--- NOTE | 2021-07-22 23:16 | P.HP ---
Certification for Inpatient Patient admitted to: Inpatient With expected LOS: >2 Midnights Patient will require the following post-hospital care: None Practitioner: I am a practitioner with admitting privileges, knowledge of patient current condition, hospital course, and medical plan of care. Services: Services provided to patient in accordance with Admission requirements found in Title 42 Section 412.3 of the Code of Federal Regulations Patient History Date of Service: 07/22/21 Reason for admission: UTI, cerebral edema, LILLIAM History of Present Illness: Ms. Morin is a 70 yo morbidly obese F with pulmonary HTN, CHF, atrial fibrillation on xarelto, HTN, and RA who presents with 3 days of decreased responsiveness. Her says that she has been sleeping continuously and he has been able to wake her during the day. He has been decreasing her medications to see if she would become more alert and she did not. He says she has been having diarrhea at home. At bedside, she is unresponsive aside from grunting and groaning. Central line was placed in the ED, and a large hematoma formed on her R thigh. She is requiring IV levophed to support blood pressure. ED wished to transfer patient due to the [facility] for neurosurgery however refuses transfer until the MRI report. Explained to the multiple times that chances of transfer directly from the ED are more successful, and he wishes to stay at our facility at this time. WBC 26.8 Na 133 BUN 57 Cr 2.52 GFR 19 alk phos 134 Dbili 0.5 BNP 61033 procal 0.19. UA positive for urinary tract infection. CTCAP IMPRESSION: Large right inguinal hematoma at least 14 x 7 cm in transverse diameter and extending over a greater than 13 centimeter craniocaudal dimension. The inferior aspect of the hematoma falls outside the field of view. The associated right femoral venous access catheter extends only 3 cm into the lumen of the right common femoral vein. Questionable minimal left perihilar interstitial infiltrate. No peripheral mass or consolidation. No acute peritoneal or retroperitoneal process. CT abdomen and pelvis imaging shows no significant or suspicious finding. CXR IMPRESSION: No new mass or consolidation. Heart, vasculature and central lung markings are prominent has a baseline which could mask mild failure or volume overload. CT HEAD IMPRESSION: Patient demonstrates findings of mild cerebral edema. No hemorrhage, focal mass lesion or shift of midline structures. Allergies codeine Allergy (Verified 03/28/20 21:40) Itching fentanyl Allergy (Verified 05/22/21 18:09) Hives/Rash morphine Allergy (Verified 05/10/20 14:39) Hives/Rash sulfamethoxazole [From Bactrim] Allergy (Verified 09/18/19 21:40) Hives/Rash trimethoprim [From Bactrim] Allergy (Verified 09/18/19 21:40) Hives/Rash Home Medications: ALPRAZolam [Xanax*] 1 tab PO TID 09/19/19 Acebutolol HCl 400 mg PO BID 09/19/19 Hydrocodone 7.5/APAP 325 [[place] 7.5/325 mg*] 1 tab PO TID 09/19/19 Sildenafil Citrate 20 mg PO TID 09/19/19 Rivaroxaban [Xarelto] 10 mg PO DAILY 90 Days #90 tablet 09/24/19 Acetaminophen [Tylenol] 325 mg PO TID 05/22/21 Chlorzoxazone 500 mg PO BID 05/22/21 Losartan Potassium 100 mg PO DAILY 05/22/21 ARIPiprazole [Abilify] 2.5 mg PO DAILY #30 tab 05/30/21 Escitalopram [Lexapro] 20 mg PO DAILY #30 tab 05/30/21 - Past Medical/Surgical History Diabetic: No -: Pulmonary hypertension -: Atrial fibrillation -: debility -: anxiety -: chronic pain -: hypertension -: rheumatoid arthritis -: obesity -: CHF -: L shoulder august 2019 -: hysterectomy - Family History Family History: Reviewed- Non-Contributory - Social History Smoking Status: Never smoker Alcohol use: No CD- Drugs: No Caffeine use: No Place of Residence: Home Review of Systems 10-point ROS is otherwise unremarkable General: Unremarkable Eyes: Unremarkable ENT: Unremarkable Respiratory: Unremarkable Cardiovascular: Edema Gastrointestinal: Diarrhea Genitourinary: Unremarkable Musculoskeletal: Unremarkable Integumentary: Unremarkable Neurological: Weakness, Confusion Lymphatics: Unremarkable Physical Examination - Physical Exam General: Unresponsive, Obese HEENT: Atraumatic, PERRLA, Mucous membr. moist/pink, EOMI, Sclerae nonicteric Neck: Supple, 2+ carotid pulse no bruit, No LAD, Without JVD or thyroid abnormality Respiratory: Normal air movement, Diminished Cardiovascular: Normal S1 S2, Edema, Irregular heart rate/rhythm Gastrointestinal: Normal bowel sounds, No tenderness, No masses, No rebound, No guarding Musculoskeletal: No tenderness Integumentary: Rash(es), Skin breakdown, Tenderness/swelling, Other (large hemtoma R groin ) Neurological: Abnormal affect Lymphatics: No axilla or inguinal lymphadenopathy Urinary: [place] catheter - Studies Laboratory Data (last 24 hrs) 07/22/21 17:50: PT 16.8 H, INR 1.46 07/22/21 17:50: WBC 26.80 H*, Hgb 12.0, Hct 36.8, Plt Count 202 07/22/21 17:50: Sodium 133 L, Potassium 4.8, BUN 57 H, Creatinine 2.52 H, Glucose 92, Magnesium 2.2 D, Total Bilirubin 0.7, AST 13 L, ALT 12, Alkaline Phosphatase 134 H Assessment and Plan - Problems (Diagnosis) (1) HTN (hypertension) Current Visit: Yes Status: Chronic Qualifiers: Hypertension type: primary hypertension Qualified Code(s): I10 - Essential (primary) hypertension (2) Rheumatoid arthritis Current Visit: Yes Status: Chronic Qualifiers: Rheumatoid arthritis location: unspecified site (3) UTI (urinary tract infection) Current Visit: Yes Status: Acute Qualifiers: Urinary tract infection type: acute cystitis Hematuria presence: with hematuria Qualified Code(s): N30.01 - Acute cystitis with hematuria (4) LILLIAM (acute kidney injury) Current Visit: Yes Status: Acute (5) CHF (congestive heart failure) Current Visit: Yes Status: Acute Qualifiers: Heart failure type: unspecified Heart failure chronicity: acute on chronic Qualified Code(s): I50.9 - Heart failure, unspecified (6) Atrial fibrillation Current Visit: No Status: Chronic Qualifiers: Atrial fibrillation type: unspecified chronic Qualified Code(s): I48.20 - Chronic atrial fibrillation, unspecified; I48.2 - Chronic atrial fibrillation (7) Pulmonary hypertension Current Visit: No Status: Chronic - Plan neurology consulted MRI stroke protocol in the AM nephrology consulted renal US pending, CPK, uric acid pending urine culture, blood culture pending continue IV vancomycin and cefepime continue levophed, hold fluids ECHO pending O2 as needed reconcile home medications DVT ppx Discharge Plan: Home Plan to discharge in: Greater than 2 days - Advance Directives Does patient have a Living Will: No Does patient have a Durable POA for Healthcare: No - Code Status/Comfort Care Code Status Assessed: Yes (full code ) Critical Care: No Time Spent Managing Pts Care (In Minutes): 70
[2021-07-22] MEDS ORDERED: ACETAMINOPHEN 650MG/RECT SUPP PR PRN (23:18)
[2021-07-22] MEDS ORDERED: ONDANSETRON 4 MG/2 ML VIAL IV PRN (23:18)
[2021-07-23 00:10] LABS: Uric Acid 7.3 mg/dL (2.6-6.0)
[2021-07-23] MEDS ORDERED: ALBUMIN HUMAN 25% 100 ML IV ONE ×2 (00:13→09:47)
[2021-07-23] MEDS ORDERED: Phenylephrine HCl 10 MG/ML 1 ML VIAL ONE (00:20)
[2021-07-23] MEDS ORDERED: NA CHLORIDE 0.9% 250 ML ONE (00:22)
[2021-07-23] MEDS ORDERED: VANCOMYCIN 1 GM in NA CHLORIDE 0.9% 250 ML IVPB ONE (01:00)
[2021-07-23] MEDS: NOREPINEPHRINE 4 MG in D5W 250 ML IV SCH ×4 (01:02→08:59)
[2021-07-23 04:59] LABS: Absolute Lymphocytes (CBC) 1.5 K/uL (0.7-4.9); Hematocrit 28.7 % (36.0-45.0); Lymphocytes % 3.6 % (15.3-44.8); MPV 6.9 fL (7.6-11.3); RBC Red Blood Cell Count 3.33 M/uL (3.86-4.86)
[2021-07-23 05:20] LABS: Protime INR 1.67
[2021-07-23] MEDS: INSULIN -REGULAR HUMAN 50 UNIT/0.5 ML ML SQ SCH ×4 (06:00→17:13)
[2021-07-23 07:20] LABS: Albumin 1.9 g/dL (3.4-5.0); Phosphorus 3.9 mg/dL (2.5-4.9); Potassium 4.8 mmol/L (3.5-5.1); Thyroid Stimulating Hormone 0.445 uIU/mL (0.360-3.740)
[2021-07-23] MEDS ORDERED: NS 0.9% VIAL 0 ML ONE (07:45)
[2021-07-23 08:42] LABS: Anisocytosis SLIGHT; Blood Morphology Comment NOTED (NOT SEEN); Burr Cells FEW; Ovalocytes SLIGHT; Platelet Estimate ADEQ
[2021-07-23] MEDS ORDERED: CEFEPIME 2 GM in NA CHLORIDE 0.9% 100 ML IV SCH (09:00)
--- NOTE | 2021-07-23 09:09 | RAD REPORT ---
EXAM DESCRIPTION: US - Renal Ultrasound-Complete - 07/23/2021 1:37 am CLINICAL HISTORY: LILLIAM COMPARISON: No comparisons FINDINGS: The left kidney was not well visualized and obscured. The right kidney was also partially obscured. The right kidney measures 7.3 x 4.5 x 3.3 cm. No right renal hydronephrosis. The urinary bladder is incompletely distended without gross abnormality seen. IMPRESSION: Very limited study is submitted due to bowel gas shadowing. Grossly no right renal abnor mality seen.
[2021-07-23] MEDS: FOLIC ACID 1 MG in NA CHLORIDE 0.9% 50 ML IV SCH (10:20)
[2021-07-23] MEDS ORDERED: NOREPINEPHRINE 16 MG in Dextrose 5%-Water 500 ML IV SCH (11:00)
[2021-07-23] MEDS: NOREPINEPHRINE 8 MG in Dextrose 5%-Water 500 ML IV SCH ×3 (11:34→19:43)
--- NOTE | 2021-07-23 13:56 | P.CNS ---
Date of Consult: 07/23/21 Reason for Consult: elevated creatinine Chief Complaint: UTI, cerebral edema, LILLIAM History of Present Illness: 70 yr old female with HTN/RA/ATRIAL FIB on Xarelto, HLD admitted for altered mental status since 3 days with associated diarrhea and decreased po intake . on presentation noted with marked fluid overload, BNP above 14k , cerebral edma on CT head and hypotension with UTI -started on abx and IVF , s/p new right femoral inguinal hematoma post IV access attempt -renal consulted for azotemia - wbc worsening today to 42 k , cr improving to 2.07 - patient more responsive , able to open eyes on request Allergies codeine Allergy (Verified 09/18/19 21:40) Itching fentanyl Allergy (Verified 05/22/21 18:09) Hives/Rash morphine Allergy (Verified 05/10/20 14:39) Hives/Rash sulfamethoxazole [From Bactrim] Allergy (Verified 09/18/19 21:40) Hives/Rash trimethoprim [From Bactrim] Allergy (Verified 09/18/19 21:40) Hives/Rash Home Medications: ALPRAZolam [Xanax] 1 mg PO TID 07/23/21 ARIPiprazole [Abilify] 2.5 mg PO DAILY 07/23/21 Acebutolol HCl 400 mg PO BID 07/23/21 Acetaminophen [Tylenol] 325 mg PO TID 07/23/21 Chlorzoxazone 500 mg PO BID 07/23/21 Escitalopram [Lexapro] 20 mg PO DAILY 07/23/21 Hydrocodone Bit/Acetaminophen [Hydrocodon-Acetaminoph 7.5-325] 1 each PO TID 07/23/21 Losartan Potassium [Cozaar] 100 mg PO DAILY 07/23/21 Rivaroxaban [Xarelto] 10 mg PO DAILY 07/23/21 Sildenafil Citrate [Revatio] 20 mg PO TID 07/23/21 - Past Medical/Surgical History Diabetic: No -: Pulmonary hypertension -: Atrial fibrillation -: debility -: anxiety -: chronic pain -: hypertension -: rheumatoid arthritis -: obesity -: CHF -: L shoulder august 2019 -: hysterectomy -: Right shoulder injury -: Fx left elbow with surgery - Social History Smoking Status: Unknown if ever smoked Alcohol use: No CD- Drugs: No Caffeine use: No Place of Residence: Home Review of Systems is unable to be obtained ([facility]) Physical Examination Temp Pulse Resp BP Pulse Ox 98 F 84 21 H 126/79 94 07/23/21 04:00 07/23/21 06:15 07/23/21 06:15 07/23/21 06:15 07/23/21 06:15 Laboratory Data (last 24 hrs) 07/22/21 19:50: Uric Acid 7.3 H 07/22/21 17:50: PT 16.8 H, INR 1.46 07/22/21 17:50: WBC 26.80 H*, Hgb 12.0, Hct 36.8, Plt Count 202 07/22/21 17:50: Sodium 133 L, Potassium 4.8, BUN 57 H, Creatinine 2.52 H, Glucose 92, Magnesium 2.2 D, Total Bilirubin 0.7, AST 13 L, ALT 12, Alkaline Phosphatase 134 H - Problems (1) LILLIAM (acute kidney injury) Current Visit: Yes Status: Acute (2) CHF (congestive heart failure) Current Visit: Yes Status: Acute Qualifiers: Heart failure type: unspecified Heart failure chronicity: acute on chronic Qualified Code(s): I50.9 - Heart failure, unspecified (3) UTI (urinary tract infection) Current Visit: Yes Status: Acute Qualifiers: Urinary tract infection type: acute cystitis Hematuria presence: with hematuria Qualified Code(s): N30.01 - Acute cystitis with hematuria (4) Rheumatoid arthritis Current Visit: Yes Status: Chronic Qualifiers: Rheumatoid arthritis location: unspecified site (5) Hematoma Current Visit: No Status: Acute (6) Atrial fibrillation Current Visit: No Status: Chronic Qualifiers: Atrial fibrillation type: unspecified chronic Qualified Code(s): I48.20 - Chronic atrial fibrillation, unspecified; I48.2 - Chronic atrial fibrillation Physician Review: Patient Assessed, Agree with Above Assessment and Plan Physician Review Additional Text: General - Obese , drowsy , on 2L NC 02 , Elderly female Heent -JYOTI/EOMI Neck -no JVD, no bruit Resp - b/l creps , diminished bases CV -sis2, atrial fib GI- full, soft abd , BS + peg - barbosa + , rachelle urine , BOLA- 2-3+ pedal edema b/l Neuro -lethargic+, A/P LILLIAM-likely due to ATN from hypotension Hypotension UTI with sepsis Metabolic/infectious encephalopathy Septic shock hx of CHF- with fluid overload /anasarca Leucocytosis PLAN LILLIAM -creatinine improving to 2.0 -switch to albumin 25g q6h -add low dose lasix -can use midodrine prn if still able to take po -avoid further IVF -renal sono reviewed Hypotension - maybe due to cardiorenal syndrome Atrial fib - on A/C Sepsis- on abx follow urine cx
[2021-07-23] MEDS ORDERED: FUROSEMIDE 40 MG/4 ML VIAL IV ONE (14:07)
[2021-07-23] MEDS: ALBUMIN HUMAN 25% 100 ML IV SCH ×2 (15:45→20:21)
[2021-07-23 16:26] LABS: UR PROTEIN 34.1 mg/dL (<11.9); Urine Protein/Creatinine Ratio 0.44 ratio (<0.15)
[2021-07-23] MEDS: CEFEPIME 1 GM in NA CHLORIDE 0.9% 100 ML IV SCH (17:12)
--- NOTE | 2021-07-23 19:08 | P.PN ---
Subjective Date of Service: 07/23/21 Chief Complaint: UTI, cerebral edema, LILLIAM Patient remain unresponsive. She is currently on 2 pressors with map around 85. Right thigh hematoma appears to be stable. Physical Examination - Vital Signs Temperature: 98.4 F Blood Pressure: 144/70 Pulse: 76 Respirations: 27 Pulse Ox (%): 91 - Physical Exam General: Unresponsive, Obese HEENT: PERRLA, Mucous membr. moist/pink, Other (Oxygen by nasal cannula), EOMI, Sclerae nonicteric Neck: Supple, JVD not distended, No Thyromegaly Respiratory: Clear to auscultation bilaterally, Normal air movement Cardiovascular: Regular rate/rhythm, Normal S1 S2, No murmurs, Edema (Bilateral upper and lower extremities) Gastrointestinal: Normal bowel sounds, Soft and benign, Non-distended Musculoskeletal: Swelling (Bilateral lower extremities), Other (Right anterior thigh hematoma) Integumentary: No rashes, Other (Right femoral central venous access) Neurological: Other (Unresponsive, withdraws to pain,) - Studies Laboratory Data (last 24 hrs) 07/22/21 19:50: Uric Acid 7.3 H 07/22/21 17:50: WBC 26.80 H*, Hgb 12.0, Hct 36.8, Plt Count 202 Assessment And Plan - Current Problems (Diagnosis) (1) Hypovolemic shock Current Visit: Yes Status: Acute (2) Septic shock Current Visit: Yes Status: Acute (3) Anasarca Current Visit: Yes Status: Acute (4) Hypoalbuminemia Current Visit: Yes Status: Acute (5) Cerebral edema Current Visit: Yes Status: Acute (6) Acute metabolic encephalopathy Current Visit: Yes Status: Acute (7) UTI (urinary tract infection) Current Visit: Yes Status: Acute Qualifiers: Urinary tract infection type: acute cystitis Hematuria presence: with hematuria Qualified Code(s): N30.01 - Acute cystitis with hematuria (8) Pulmonary hypertension Current Visit: No Status: Chronic - Plan Continue pressors. Albumin infusions is volume expanders on also to improve oncotic pressure to come back to third spacing with IV hydration. Nephrology input appreciated. Patient with severe leukocytosis which continues to trend up. Continue broad-spectrum antibiotics-vancomycin and cefepime Hold off on MRI of the brain as patient is unstable for transport. Monitor and optimize electrolytes. Neurochecks. Follow cultures. Neurology consult. General surgery consulted for left thigh hematoma and central venous access. Prognosis is guarded. Plan of care discussed with the . Critical care time spent managing patient's altered mental status and hypotension was about 38 minutes. Physician Review: Patient Assessed, Agree with Above Assessment and Plan
--- NOTE | 2021-07-23 20:28 | CON ---
Date of Consultation: 07/23/2021 Reason For Consultation: Evaluate right groin central line with hematoma present, see if the patient needs another central line. History Of Present Illness: The patient is a 70-year-old female with morbid obesity, multiple medica l problems, on Xarelto, who presented to the emergency room with decreased responsiveness and was adm itted yesterday in the ER. A central line was placed in the right groin and the patient is on presso rs. There was a hematoma there in the right thigh and I was recommended that because of the cerebral edema that the patient had he be transferred to a tertiary care for neurosurgical evaluation, dilan santana has been refused transfer at this point and states that he wants to see what the MRI report shows b efore transferring the patient. She came in with leukocytosis and a UTI and she is unresponsive, but not intubated at this point, on nasal cannula. Review of Systems: Otherwise unremarkable. Past Medical History: Significant for pulmonary hypertension, atrial fibrillation, morbid obesity, d ebility, anxiety, chronic pain syndrome, hypertension, rheumatoid arthritis, CHF. Past Surgical History: Significant for left shoulder surgery and hysterectomy. Allergies: REVIEWED AND INCLUDE CODEINE, FENTANYL, MORPHINE, BACTRIM. Social History: The patient does not smoke or drink alcohol. Family History: Noncontributory. Physical Examination: Vital Signs: On pressors are systolic of 100 to 115, heart rate between 81 to 106, respiratory rate between 18 to 30, and temperature of 100.3. General: She is resting, breathing slightly labored, maintaining her O2 sats above 95. Head and Neck: No masses. Chest: Clear. Heart: S1, S2. Abdomen: Soft. Extremities: Neurovascularly intact. Right groin, there is an ecchymotic, edematous skin present wh ere around the central line is tracking in the subcutaneous space. It is fairly large area. There i s no tenseness to the tissue and nurses state that it has not gotten bigger since this morning and si nce the patient has been in the ICU, at this point 10 cc syringe with saline was used to test the por t and there was venous nonpulsatile blood that was easily aspirated from the central line and this wa s flushed with saline as well and has some function and was appropriate. Advised the nurses to cassia nue to use central line. Assessment: Hematoma, right groin and central line, right groin. Recommendation: Symptomatic treatment for the hematoma with a compression dressing, sandbag, and con tinue to use the central line per protocol. Avoid blood thinners if possible based on her recent ble eding and no need for any acute surgical intervention at this time. Please reconsult shakila MCDONOUGH/DESMOND Voice ID: [id number] Report ID: [id number]
--- NOTE | 2021-07-23 23:13 | CON ---
Reason For Consultation: Consultation is called because the patient is poorly responsive to verbal a nd tactile stimulation. History Of Present Illness: Ms. Morin is a 70-year-old patient with multiple medical problems inclu ding hypertension, congestive heart failure, atrial fibrillation, on Xarelto, who was brought by her because of 3 days of continuous sleeping, unable to awaken the patient and very poor interact ion and not speaking and performing purposeful activity. She would apparently grunt and moan to stim ulation. The patient came to [facility] on the , which is yesterday, and at [facility], she had a central line placed around which a large hematoma formed in the right anterior th igh. She had drops in her blood pressure with systolic lowest of 65 with 65/41, and pulse of 107. S he was treated with pressors and fluid with blood pressures most recently in the low 100s to 101 to 1 05 systolic over the 60s to 70s. Her head CT scan done prior to raising her blood pressure did show mild cerebral edema with decreased distinction of the reyes-white junction, and this was compared to t he most recent head CT scan without contrast done on May 29, 2021 and December 14, 2019. The patient is in the ICU, not intubated, still breathing on her own. Past Medical History: As noted including pulmonary hypertension, rheumatoid arthritis, obesity. Past Surgical History: Left shoulder surgery in 2019, hysterectomy. Medications: Xanax mg 3 times daily, acebutolol 400 mg twice daily, [place] 7.5/325 3 times daily, sildenafil 20 mg 3 times daily, Xarelto 10 mg daily, losartan 100 mg daily, Abilify 2.5 mg da rosanne, Lexapro 20 mg daily. Allergies: BACTRIM, MORPHINE, FENTANYL, CODEINE. Review of Systems: Not possible. The patient is not responding verbally. Social History: No alcohol, tobacco, or IV drug use. Physical Examination: Vital Signs: Blood pressure 101/76, pulse 85, respiratory rate 20 up to 38, temperature 98.4, oxygen saturation 98% on 2 L oxygen by nasal cannula. Weight 253 pounds, height 5 feet, BMI 49.4. Ms. Bárbara hernandez is in ICU. She did not have spontaneous movements of arms, legs, or face at the time of my evalu ation. Verbal stimulation, she did attempt to open the eyes, but was unable to track. She had a lef tward gaze preference but could doll back to the right when head is passively moved [id number]. G eneral: Exam shows she has mild to moderate edema in the right more than left upper extremity and lo wer extremity. She also has obese abdomen. She has good air movement. Neurological: As noted, she is not spontaneously opening eyes, and responding, however, to verbal stimulation to attempt to open the eye. Her cranial nerves do not show focal deficits. Her pupils are reactive to light around 4 mm down towards 2 bilaterally. Her tone is normal in the upper and lower extremities. She did groan to stimulation of the upper extremities and lower extremities. 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 Unable to ambulate as the pat ient is not responsive. Laboratory Studies: White blood cell count now up to 42,000 with absolute neutrophil up to 39, neutr ophils 91.8. INR 1.67. Arterial blood gas pending. Creatinine 2.07. ALT, AST, and alkaline phosph atase are essentially unremarkable. Uric acid is elevated at 7.3. Procalcitonin elevated at 0.19. Lactic acid is normal at 0.7. Ammonia 47. COVID-19 test is negative. Urinalysis shows positive nit rites, 3+ esterase, trace ketones, greater than 50 white blood cells, greater than 50 bacteria. Ms. Morin is a 70-year-old patient with likely a toxic encephalopathy. Her CT scan shows diffuse ce rebral edema. She has very elevated white blood cell count and evidence of some early sepsis with po ssible shock with low blood pressures and high pulse rate. She is afebrile. Her chest x-ray shows p rominent central lung markings, which is noted could mask volume overload pattern. A chest, abdomen, and pelvis CT scan shows a large right inguinal hematoma. The CT of the abdomen and pelvis otherwis e shows no suspicious findings. Assessment: Ms. Morin is a 70-year-old patient as noted with significant encephalopathy with possib le encephalitis. She does have a systemic infection and third-spacing and urinary tract infection. Plan: Aggressive treatment of her infection. She is on cefepime, vancomycin per her primary team. She does have albumin to help with third spacing. She does have Lasix. An MRI of the brain could be done, it may be helpful. EEG also may be helpful for prognosis. The prognosis at this point is not likely to be good given the cerebral edema. Interval CT scan of the brain MRI cannot be done, may a lso be helpful along with the EEG. ANNETTE/DESMOND Voice ID: [id number] Report ID: [id number]
[2021-07-24] MEDS: ALBUMIN HUMAN 25% 100 ML IV SCH ×4 (02:13→21:00)
[2021-07-24] MEDS: NOREPINEPHRINE 8 MG in Dextrose 5%-Water 500 ML IV SCH ×2 (02:13→14:45)
[2021-07-24 04:42] LABS: Absolute Lymphocytes (CBC) 2.9 K/uL (0.7-4.9); RBC Red Blood Cell Count 2.28 M/uL (3.86-4.86)
[2021-07-24 04:44] LABS: Hematocrit 19.4 % (36.0-45.0)
[2021-07-24 04:54] LABS: Albumin 3.2 g/dL (3.4-5.0); Bilirubin Total 1.3 mg/dL (0.2-1.0); Potassium 4.2 mmol/L (3.5-5.1); Protein, Total 5.5 g/dL (6.4-8.2)
[2021-07-24] MEDS: INSULIN -REGULAR HUMAN 50 UNIT/0.5 ML ML SQ SCH ×4 (05:27→16:41)
[2021-07-24] MEDS ORDERED: NA CHLORIDE 0.9% 250 ML IV SCH (06:00)
--- NOTE | 2021-07-24 06:06 | P.PN ---
Date of Service: 07/24/21 Subjective: More awake/alert this morning, oriented to self Trials off when speaking, sleepy/lethargic reports this is great improvement over the last several days ROS: 10 point ROS as noted above, otherwise negative Physical exam GEN: awakens to verbal stimuli, answers appropriately, with some slurring / word finding difficulty HEENT: Normal conjunctiva, sclera anicteric CV: Regular rate and rhythm, anasarca Pulm: Nonlabored respirations on 2L NC ABD: Soft, nontender, nondistended Integumentary: Right anterior thigh hematoma with pressure dressing / weight applied Neuro: follows simple commands, slurred speech, lethargic Right femoral central venous access Problem List Sepsis with septic shock secondary to UTI Hypovolemic shock Anasarca Hypoalbuminemia Acute metabolic encephalopathy secondary to UTI, cerebral edema Right anterior thigh hematoma Acute blood loss anemia Cerebral edema Pulmonary hypertension Continue pressors as needed albumin infusion for third spacing nephrology consulted, receiving Lasix as well Patient's leukocytosis continues to trend up to 40s, slightly improved this morning with loose stools, but not significant amount this morning, send for cdif Continue broad-spectrum antibiotics-vancomycin and cefepime Neurology consulted for cerebral edema/unresponsiveness, recommended EEG and MRI. MRI delayed yesterday due to patient being too unstable for transport, still on levophed Neurochecks Follow cultures General surgery consulted for left thigh hematoma / central venous access - recommended medical management for now hgb still downtrending, reports h/o anemia as well CT abd/pelvis ordered to re-eval hematoma, r/o retroperitoneal bleed VTE: avoid due to hematoma Code: full Dispo: continue ICU level of care Prognosis is guarded. updated at bedside Time Spent Managing Pts Care (In Minutes): 35
[2021-07-24] MEDS: FOLIC ACID 1 MG in NA CHLORIDE 0.9% 50 ML IV SCH (08:26)
[2021-07-24] MEDS ORDERED: FUROSEMIDE 20 MG/ 2ML VIAL IV SCH (09:00)
--- NOTE | 2021-07-24 09:02 | ECHO ---
HEIGHT: 5 ft 0 in WEIGHT: 253 lb 0 oz DATE OF STUDY: 07/23/[address]: Niko Godoy MD 2-DIMENSIONAL: YES M.MODE: YES DOPPLER: YES COLOR FLOW: YES TDS: NO PORTABLE: YES DEFINITY: NO BUBBLE STUDY: NO DIAGNOSIS: CEREBRAL VASCULAR ACCIDENT/ RULE OUT VEGETATION CARDIAC HISTORY: CATHERIZATION: NO SURGERY: NO PROSTHETIC VALVE: NO PACEMAKER: NO MEASUREMENTS (cm) DIASTOLIC (NORMALS) SYSTOLIC (NORMALS) IVSd 1.2 (0.6-1.2) LA Diam 5.6 (1.9-4.0) LVEF 35-40% LVIDd 5.1 (3.5-5.7) LVIDs 4.0 (2.0-3.5) %FS 21% LVPWd 1.3 (0.6-1.2) Ao Diam 2.6 (2.0-3.7) 2 DIMENSIONAL ASSESSMENT: RIGHT ATRIUM: DILATED LEFT ATRIUM: DILATED RIGHT VENTRICLE: NORMAL LEFT VENTRICLE: NORMAL TRICUSPID VALVE: NORMAL MITRAL VALVE: NORMAL PULMONIC VALVE: NORMAL AORTIC VALVE: NORMAL PERICARDIAL EFFUSION: NONE AORTIC ROOT: NORMAL LEFT VENTRICULAR WALL MOTION: MODERATE GLOBAL HYPOKINESIS. DOPPLER/COLOR FLOW: MILD TRICUSPID REGURGITATION - SEVERE PULMONARY HYPERTENSION. COMMENTS: SEVERE PULMONARY HYPERTENSION - 89mmHg. MODERATE GLOBAL HYPOKINESIS 35-40%. LEFT ATRIAL ENLARGEMENT. RIGHT ATRIAL ENLARGEMENT. TECHNOLOGIST: PAM GARY
[2021-07-24] MEDS ORDERED: NA CHLORIDE 0.9% 250 ML ONE (09:04)
[2021-07-24] MEDS: Magnesium Sulfate 2gm IVPB 2 G/50 ML BAG IV SCH (12:22)
[2021-07-24 12:27] LABS: Magnesium 1.9
--- NOTE | 2021-07-24 13:00 | P.PN ---
Subjective Date of Service: 07/24/21 Chief Complaint: UTI, cerebral edema, LILLIAM Subjective: No new changes (seen , drowsy this am - still on IV pressors, but decreasing need -spouse at bedside d/w) Physical Examination - Vital Signs Temperature: 97.6 F Blood Pressure: 110/68 Pulse: 69 Respirations: 30 Pulse Ox (%): 92 - Studies Microbiology Data (last 24 hrs): 07/22/21 19:45 Clean Catch Urine [place] Count - Final BETWEEN 10,000 & 100,000 CFU/ML 07/22/21 19:45 Clean Catch Urine - Final MIXED [place]. Assessment And Plan - Current Problems (Diagnosis) (1) LILLIAM (acute kidney injury) Current Visit: Yes Status: Acute (2) CHF (congestive heart failure) Current Visit: Yes Status: Acute Qualifiers: Heart failure type: unspecified Heart failure chronicity: acute on chronic Qualified Code(s): I50.9 - Heart failure, unspecified (3) UTI (urinary tract infection) Current Visit: Yes Status: Acute Qualifiers: Urinary tract infection type: acute cystitis Hematuria presence: with hematuria Qualified Code(s): N30.01 - Acute cystitis with hematuria (4) Rheumatoid arthritis Current Visit: Yes Status: Chronic Qualifiers: Rheumatoid arthritis location: unspecified site (5) Hematoma Current Visit: No Status: Acute (6) Atrial fibrillation Current Visit: No Status: Chronic Qualifiers: Atrial fibrillation type: unspecified chronic Qualified Code(s): I48.20 - Chronic atrial fibrillation, unspecified; I48.2 - Chronic atrial fibrillation Physician Review: Patient Assessed, Agree with Above Assessment and Plan Physician Review Additional Text: General - Obese , drowsy , on 2L NC 02 , Elderly female Heent -JYOTI/EOMI Neck -no JVD, no bruit Resp - b/l creps , diminished bases CV -sis2, atrial fib GI- full, soft abd , BS + peg - barbosa + , rachelle urine , BOLA- right groin hematoma , still 2-3+ pedal edema b/l Neuro -lethargic+, A/P LILLIAM-likely due to ATN from hypotension Hypotension UTI with sepsis Metabolic/infectious encephalopathy Septic shock hx of CHF- with fluid overload /anasarca Leucocytosis Blood loss anemia - s/p on PRBC Right groin/femoral hematoma Systolic CHF with global hypokinesis Hx of Pul HTN Hypomagnesemia PLAN LILLIAM -creatinine improving to 1.7 Continue appropriate doses We will replete magnesium Continue low-dose Lasix Consider start dobutamine drip to increase cardiac output as well as renal perfusion Respiratory further improvement in creatinine with optimization of blood pressu re Keep MAP greater than 70 mmHg -renal sono reviewed Hypotension -likely due to sepsis/cardiorenal syndrome Wean off Levophed Initiate patient on dobutamine drip New onset CHF systolic CHFprior history of pulmonary hypertension Possibility of acute coronary event causing new CHF considered Consider cardiology for cardiac cath Atrial fib - on A/C Anemiastatus post PRBC today Follow-up plan for CT abdomen pelvics Keep H&H above 7 Sepsis- on abx Urine culture no significant growth to date
[2021-07-24] MEDS: CEFEPIME 1 GM in NA CHLORIDE 0.9% 100 ML IV SCH (17:28)
[2021-07-24 18:11] LABS: Hematocrit 23.4 % (36.0-45.0)
[2021-07-24] MEDS ORDERED: VANCOMYCIN 2 GM in NA CHLORIDE 0.9% 500 ML IVPB SCH (20:00)
--- NOTE | 2021-07-24 21:34 | RAD REPORT ---
EXAM DESCRIPTION: CT - Abdomen Pelvis Wo Contrast - 07/24/2021 8:54 pm CLINICAL HISTORY: Abdominal pain. r/o retroperitoneal bleed, R hematoma COMPARISON: [facility] Protocol dated 05/22/2021; Renal Ultrasound-Complete dated 07/23/2021 TECHNIQUE: CT imaging of the abdomen and pelvis was performed without contrast. Solid organ, bowel a nd vascular assessment is limited due to lack of IV and oral contrast. All CT scans are performed using dose optimization technique as appropriate and may include automated exposure control or mA/KV adjustment according to patient size. FINDINGS: Bibasilar lung opacities are seen which may represent mild infiltrate or atelectasis. The liver, spleen, pancreas, adrenal glands and kidneys are within normal limits for a limited non-co ntrast examination.No retroperitoneal hematoma seen. Moderate anasarca is present. No bowel obstruction, free air, free fluid or abscess. Air is present in the urinary bladder. The ila endix is normal. Mild lumbar degenerative changes 16 x 7 cm large hematoma is seen in the right groin. IMPRESSION: Large 16 x 7 cm right groin hematoma. No retroperitoneal hematoma. A limited non-contrast examination was performed as detailed.
[2021-07-25] MEDS: Magnesium Sulfate 2gm IVPB 2 G/50 ML BAG IV SCH ×2 (01:01→13:56)
[2021-07-25] MEDS: ALBUMIN HUMAN 25% 100 ML IV SCH ×4 (03:00→21:57)
[2021-07-25 05:23] LABS: Absolute Lymphocytes (CBC) 1.5 K/uL (0.7-4.9); Hematocrit 22.2 % (36.0-45.0); Lymphocytes % 9.2 % (15.3-44.8); MPV 7.2 fL (7.6-11.3); RBC Red Blood Cell Count 2.56 M/uL (3.86-4.86)
[2021-07-25 05:40] LABS: Albumin 3.5 g/dL (3.4-5.0); Bilirubin Total 1.9 mg/dL (0.2-1.0); Potassium 3.9 mmol/L (3.5-5.1); Protein, Total 5.6 g/dL (6.4-8.2)
[2021-07-25] MEDS: INSULIN -REGULAR HUMAN 50 UNIT/0.5 ML ML SQ SCH ×4 (06:00→16:45)
--- NOTE | 2021-07-25 06:16 | P.PN ---
Date of Service: 07/25/21 Subjective: Received 2 units of blood yesterday, no acute events CT abdomen/pelvis negative for any retroperitoneal bleed Patient reports continued improvement Feels like her extremities are swollen and very heavy Pressors weaned this morning ROS: 10 point ROS as noted above, otherwise negative Physical exam GEN: AOx2, slow to answer / slow speech HEENT: Normal conjunctiva, sclera anicteric CV: Irregularly irregular rhythm, anasarca Pulm: Nonlabored respirations on 2L NC ABD: Soft, nontender, nondistended Integumentary: Right anterior thigh hematoma with pressure dressing / weight applied Neuro: follows simple commands, slurred speech, lethargic Right femoral central venous access Problem List Sepsis with septic shock secondary to UTI new onset systolic CHF with h/o severe pulmonary hypertension Anasarca Hypoalbuminemia Chronic atrial fibrillation Acute metabolic encephalopathy secondary to UTI, cerebral edema Right anterior thigh hematoma Acute blood loss anemia Cerebral edema Pressors weaned this morning Received albumin infusion for third spacing nephrology consulted, received Lasix as well Renal function improving, leukocytosis improving, mentation improving, sodium slowly improving Continue broad-spectrum antibiotics-vancomycin and cefepime, UA with positive nitrite/leukoesterase, bacteriuria. Urine culture with mixed angela Blood culture without growth, will de-escalate antibiotics tomorrow Neurology consulted for cerebral edema/unresponsiveness, recommended EEG and MRI. MRI delayed due to patient being too unstable for transport, possibly to be done this afternoon General surgery consulted for left thigh hematoma / central venous access - recommended medical management for now repeat CT abd/pelvis: Negative for retroperitoneal bleed, hematoma slightly enlarged s/p 2uPRBC on 07/24, 1uPRBC on 07/25 cardiology consulted - ?new onset systolic CHF, h/o severe pulmonary hypertension VTE: avoid due to hematoma Code: full Dispo: continue ICU level of care updated at bedside Time Spent Managing Pts Care (In Minutes): 35
[2021-07-25] MEDS ORDERED: NA CHLORIDE 0.9% 250 ML IV SCH (07:00)
[2021-07-25] MEDS: NOREPINEPHRINE 8 MG in Dextrose 5%-Water 500 ML IV SCH (07:00)
[2021-07-25] MEDS: FOLIC ACID 1 MG in NA CHLORIDE 0.9% 50 ML IV SCH (08:37)
[2021-07-25] MEDS ORDERED: NA CHLORIDE 0.9% 250 ML ONE (10:01)
[2021-07-25 12:55] LABS: C.diff Antigen/Toxin Ag pos : Tox pos (NEG : NEG)
[2021-07-25] MEDS: VANCOMYCIN ORAL SOLN 250 MG/5 ML OSYR PO SCH ×2 (13:54→17:21)
[2021-07-25 16:02] LABS: Hematocrit 25.7 % (36.0-45.0)
[2021-07-25] MEDS: CEFEPIME 1 GM in NA CHLORIDE 0.9% 100 ML IV SCH (17:21)
[2021-07-25] MEDS: DOBUTAMINE 250 MG/250 ML BAG IV SCH (18:42)
--- NOTE | 2021-07-25 19:00 | P.PN ---
Subjective Date of Service: 07/25/21 Chief Complaint: UTI, cerebral edema, LILLIAM Subjective: No new changes, No C/O voiced (still drowsy) Physical Examination - Vital Signs Temperature: 97.7 F Blood Pressure: 99/60 Pulse: 62 Respirations: 23 Pulse Ox (%): 99 Assessment And Plan - Current Problems (Diagnosis) (1) LILLIAM (acute kidney injury) Current Visit: Yes Status: Acute (2) CHF (congestive heart failure) Current Visit: Yes Status: Acute Qualifiers: Heart failure type: unspecified Heart failure chronicity: acute on chronic Qualified Code(s): I50.9 - Heart failure, unspecified (3) UTI (urinary tract infection) Current Visit: Yes Status: Acute Qualifiers: Urinary tract infection type: acute cystitis Hematuria presence: with hematuria Qualified Code(s): N30.01 - Acute cystitis with hematuria (4) Rheumatoid arthritis Current Visit: Yes Status: Chronic Qualifiers: Rheumatoid arthritis location: unspecified site (5) Hematoma Current Visit: No Status: Acute (6) Atrial fibrillation Current Visit: No Status: Chronic Qualifiers: Atrial fibrillation type: unspecified chronic Qualified Code(s): I48.20 - Chronic atrial fibrillation, unspecified; I48.2 - Chronic atrial fibrillation Physician Review: Patient Assessed, Agree with Above Assessment and Plan Physician Review Additional Text: General - Obese , drowsy , on 2L NC 02 , Elderly female Heent -JYOTI/EOMI Neck -no JVD, no bruit Resp - b/l creps , diminished bases CV -sis2, atrial fib GI- full, soft abd , BS + peg - barbosa + , rachelle urine , BOLA- right groin hematoma , still 2-3+ pedal edema b/l Neuro -lethargic+, A/P LILLIAM-likely due to ATN from hypotension Hypotension UTI with sepsis Metabolic/infectious encephalopathy Septic shock hx of CHF- with fluid overload /anasarca Leucocytosis Blood loss anemia - s/p on PRBC Right groin/femoral hematoma Systolic CHF with global hypokinesis Hx of Pul HTN Hypomagnesemia PLAN LILLAIM -creatinine improving to 1.37 Continue appropriate doses Replete magnesium Continue low-dose Lasix start dobutamine drip to increase cardiac output and urine flow rate still positive fluid balance c/w to Keep MAP greater than 70 mmHg -renal sono reviewed Hypotension -likely due to sepsis/cardiorenal syndrome Wean off Levophed and start dobutamine drip New onset CHF systolic CHFprior history of pulmonary hypertension Possibility of acute coronary event causing new CHF considered Consider cardiology for cardiac cath Atrial fib - on A/C Anemiastatus post PRBC ,Keep H&H above 7 Sepsis- on abx, Urine culture no significant growth to date
[2021-07-26] MEDS: DOBUTAMINE 250 MG/250 ML BAG IV SCH (03:52)
[2021-07-26] MEDS: ALBUMIN HUMAN 25% 100 ML IV SCH ×4 (04:00→20:32)
[2021-07-26 05:09] LABS: Hematocrit 25.1 % (36.0-45.0); Lymphocytes % 6.8 % (15.3-44.8); MPV 7.3 fL (7.6-11.3); RBC Red Blood Cell Count 2.87 M/uL (3.86-4.86)
[2021-07-26 05:25] LABS: Albumin 3.9 g/dL (3.4-5.0); Bilirubin Total 2.3 mg/dL (0.2-1.0); Potassium 3.9 mmol/L (3.5-5.1); Protein, Total 5.9 g/dL (6.4-8.2)
[2021-07-26] MEDS: VANCOMYCIN ORAL SOLN 250 MG/5 ML OSYR PO SCH ×4 (05:53→18:01)
[2021-07-26] MEDS: INSULIN -REGULAR HUMAN 50 UNIT/0.5 ML ML SQ SCH ×3 (06:00→11:28)
--- NOTE | 2021-07-26 06:13 | P.PN ---
Date of Service: 07/26/21 Subjective: s/p 1u PRBC yesterday feels she is improving slowly each day able to move arms slightly easier today breathing more comfortably nursing staff report patient seems to be having visual hallucinations at times. ROS: 10 point ROS as noted above, otherwise negative Physical exam GEN: AOx2, slow to answer / slow speech HEENT: Normal conjunctiva, sclera anicteric CV: Irregularly irregular rhythm, anasarca Pulm: Nonlabored respirations on 2L NC ABD: Soft, nontender, nondistended Integumentary: Right anterior thigh hematoma Neuro: follows simple commands, slurred speech, moves extremities, generalized weakness Right femoral central venous access Problem List Sepsis with septic shock secondary to UTI / C.diff c.diff colitis new onset systolic CHF with h/o severe pulmonary hypertension Anasarca Hypoalbuminemia Chronic atrial fibrillation Acute metabolic encephalopathy secondary to UTI, cerebral edema Right anterior thigh hematoma Acute blood loss anemia Cerebral edema pressors as needed - restarted yesterday albumin infusion for third spacing, nephrology consulted, received Lasix as well Renal function improving, leukocytosis improving, mentation improving, sodium slowly improving IV vanc changed to PO on 07/25 - c.diff resulted positive. continues on cefepime. UA with positive nitrite/leukoesterase, bacteriuria. Urine culture with mixed angela Blood culture without growth Neurology consulted for cerebral edema/unresponsiveness, recommended EEG and MRI. MRI delayed due to patient being too unstable for transport, possibly to be done this afternoon General surgery consulted for left thigh hematoma / central venous access - recommended medical management for now repeat CT abd/pelvis: Negative for retroperitoneal bleed, hematoma slightly enlarged s/p 2uPRBC on 07/24, 1uPRBC on 07/25 cardiology consulted - new onset systolic CHF, h/o severe pulmonary hypertension VTE: avoiding due to hematoma Code: full Dispo: continue ICU level of care Time Spent Managing Pts Care (In Minutes): 35
[2021-07-26] MEDS: FUROSEMIDE 40 MG/4 ML VIAL IV SCH ×2 (09:00→15:45)
--- NOTE | 2021-07-26 09:08 | EEG ---
CHART: [id number] TEST ID#: [id number] DATE OF STUDY: 07/24/2021 THE EEG WAS RECORDED PORTABLE IN THE ICU ON A 17 CHANNEL MACHINE. ELECTRODES WERE APPLIED IN THE USUAL MANNER USING THE INTERNATIONAL 10-20 SYSTEM. THE WAKING BACKGROUND RHYTHM IN THIS RECORD CONSISTS OF POORLY DEVELOPED AND POORLY ORGANIZED WAVES OF 6-7 HZ., IN A WIDE DISTRIBUTION WHICH ATTENUATE NORMALLY WITH EYE OPENING. MODERATE VOLTAGE 1.5-3 HZ ACTIVITY IS EXPRESSED IN THE FRONTAL REGION. LOW VOLTAGE 15-18 HZ IS EXPRESSED IN THE FRONTAL REGIONS. THERE ARE NO FOCAL OR LATERALIZING FEATURES. NO EPILEPTIFORM ACTIVITY APPEARS. SLEEP DID NOT OCCUR. HYPERVENTILATION WAS NOT PERFORMED. PHOTIC STIMULATION PRODUCED NO DRIVING BILATERALLY. IMPRESSION: THIS IS A MODERATELY ABNORMAL ROUTINE EEG DUE TO A MODERATELY SLOW BACKGROUND. THIS IS A NON-SPECIFIC FINDING INDICATING THE PRESENCE OF A MODERATE DIFFUSE DISTURBANCE IN CERBRAL FUNCTION.
[2021-07-26] MEDS: FOLIC ACID 1 MG in NA CHLORIDE 0.9% 50 ML IV SCH (09:38)
--- NOTE | 2021-07-26 15:15 | P.PN ---
Subjective Date of Service: 07/26/21 Chief Complaint: UTI, cerebral edema, LILLIAM Subjective: No new changes Physical Examination - Vital Signs Temperature: 97.2 F Blood Pressure: 119/71 Pulse: 74 Respirations: 18 Pulse Ox (%): 100 Assessment And Plan - Current Problems (Diagnosis) (1) LILLIAM (acute kidney injury) Current Visit: Yes Status: Acute (2) CHF (congestive heart failure) Current Visit: Yes Status: Acute Qualifiers: Heart failure type: unspecified Heart failure chronicity: acute on chronic Qualified Code(s): I50.9 - Heart failure, unspecified (3) UTI (urinary tract infection) Current Visit: Yes Status: Acute Qualifiers: Urinary tract infection type: acute cystitis Hematuria presence: with hematuria Qualified Code(s): N30.01 - Acute cystitis with hematuria (4) Rheumatoid arthritis Current Visit: Yes Status: Chronic Qualifiers: Rheumatoid arthritis location: unspecified site (5) Hematoma Current Visit: No Status: Acute (6) Atrial fibrillation Current Visit: No Status: Chronic Qualifiers: Atrial fibrillation type: unspecified chronic Qualified Code(s): I48.20 - Chronic atrial fibrillation, unspecified; I48.2 - Chronic atrial fibrillation Physician Review: Patient Assessed, Agree with Above Assessment and Plan Physician Review Additional Text: General - Obese , drowsy , on 2L NC 02 , Elderly female Heent -JYOTI/EOMI Neck -no JVD, no bruit Resp - b/l creps , diminished bases CV -sis2, atrial fib GI- full, soft abd , BS + peg - barbosa + , rachelle urine , BOLA- right groin hematoma , dec 2+ pedal edema b/l Neuro -lethargic+, A/P LILLIAM-likely due to ATN from hypotension Hypotension UTI with sepsis Metabolic/infectious encephalopathy Septic shock hx of CHF- with fluid overload /anasarca Leucocytosis Blood loss anemia - s/p on PRBC Right groin/femoral hematoma New Systolic CHF with global hypokinesis Hx of Pul HTN Hypomagnesemia PLAN LILLIAM -creatinine improving to 1.09 -serum sodium also improving -c/w lasix and dobutamine gtt -still positive fluid balance , restart IV lasix -c/w to keep MAP above 70 Replete magnesium Continue low-dose Lasix -renal sono reviewed Hypotension -likely due to sepsis/cardiorenal syndrome c/w dobutamine drip New onset CHF systolic CHFprior history of pulmonary hypertension Possibility of acute coronary event causing new CHF considered Consider cardiology for cardiac cath Atrial fib - on A/C Anemiastatus post PRBC ,Keep H&H above 7 Sepsis- on abx, Urine culture no significant growth to date C diff colitis -c/w abx , wbc trending down
[2021-07-26] MEDS: CEFEPIME 1 GM in NA CHLORIDE 0.9% 100 ML IV SCH (16:47)
[2021-07-27] MEDS: VANCOMYCIN ORAL SOLN 250 MG/5 ML OSYR PO SCH ×5 (00:20→23:55)
[2021-07-27] MEDS ORDERED: ALBUMIN HUMAN 25% 100 ML IV ONE (02:35)
[2021-07-27] MEDS: ALBUMIN HUMAN 25% 100 ML IV SCH ×4 (02:43→20:31)
[2021-07-27 05:30] LABS: Absolute Lymphocytes (CBC) 1.1 K/uL (0.7-4.9); Hematocrit 25.4 % (36.0-45.0); Lymphocytes % 8.6 % (15.3-44.8); MPV 7.4 fL (7.6-11.3); RBC Red Blood Cell Count 2.89 M/uL (3.86-4.86)
[2021-07-27] MEDS: INSULIN -REGULAR HUMAN 50 UNIT/0.5 ML ML SQ SCH ×6 (05:34→21:00)
--- NOTE | 2021-07-27 06:05 | P.PN ---
Date of Service: 07/27/21 Subjective: No acute events overnight no acute events overnight Feeling a little bit better today Still very weak ROS: 10 point ROS as noted above, otherwise negative Physical exam GEN: AOx2, slow to answer / slow speech HEENT: Normal conjunctiva, sclera anicteric CV: Irregularly irregular rhythm, anasarca Pulm: Nonlabored respirations on 2L NC ABD: Soft, nontender, nondistended Integumentary: Right anterior thigh hematoma Neuro: follows commands, moves extremities, generalized weakness Right femoral central venous access Problem List Sepsis with septic shock secondary to UTI / C.diff c.diff colitis new onset systolic CHF with h/o severe pulmonary hypertension Anasarca Hypoalbuminemia Chronic atrial fibrillation Acute metabolic encephalopathy secondary to UTI, cerebral edema Right anterior thigh hematoma Acute blood loss anemia Cerebral edema pressors as needed - restarted yesterday -required several days. Off since midnight albumin infusion for third spacing, nephrology consulted, received Lasix as well Renal function improving, leukocytosis improving, mentation improving, sodium improving Blood pressure now borderline high, off pressors, will allow more room to use diuretics Nephrology following, assisting with diuresis/electrolyte abnormalities IV vanc changed to PO on 07/25 - c.diff resulted positive. continues on cefepime. UA with positive nitrite/leukoesterase, bacteriuria. Urine culture with mixed angela Blood culture without growth Continue IV cefepime, once diarrhea improves, can transition to oral option. Neurology consulted for cerebral edema/unresponsiveness, recommended EEG and MRI. Patient more stable today, can likely get MRI done General surgery consulted for left thigh hematoma / central venous access - recommended medical management for now repeat CT abd/pelvis: Negative for retroperitoneal bleed, hematoma slightly enlarged s/p 2uPRBC on 07/24, 1uPRBC on 07/25 cardiology consulted - new onset systolic CHF, h/o severe pulmonary hypertension -no further work-up/change medications at this time VTE: avoiding due to hematoma Code: full Dispo: continue ICU level of care Time Spent Managing Pts Care (In Minutes): 35
[2021-07-27 06:21] LABS: Albumin 4.6 g/dL (3.4-5.0); Bilirubin Total 2.4 mg/dL (0.2-1.0); Phosphorus 1.8 mg/dL (2.5-4.9); Potassium 3.7 mmol/L (3.5-5.1); Protein, Total 6.5 g/dL (6.4-8.2)
[2021-07-27] MEDS ORDERED: POTASSIUM PHOS IN 0.9 % NACL 15 MMOL/250 ML BAG IV ONE (07:00)
[2021-07-27] MEDS: FOLIC ACID 1 MG in NA CHLORIDE 0.9% 50 ML IV SCH (09:07)
[2021-07-27] MEDS: FUROSEMIDE 40 MG/4 ML VIAL IV SCH (09:07)
[2021-07-27 10:24] LABS: Blood Morphology Comment NOT SEEN (NOT SEEN); Platelet Estimate ADEQ
[2021-07-27] MEDS ORDERED: LORazepam 2 MG/ML VIAL IV PRN (11:00)
--- NOTE | 2021-07-27 14:33 | P.PN ---
Subjective Date of Service: 07/27/21 Chief Complaint: UTI, cerebral edema, LILLIAM Subjective: No new changes Physical Examination - Vital Signs Temperature: 98.6 F Blood Pressure: 130/74 Pulse: 79 Respirations: 20 Pulse Ox (%): 95 Assessment And Plan - Current Problems (Diagnosis) (1) LILLIAM (acute kidney injury) Current Visit: Yes Status: Acute (2) CHF (congestive heart failure) Current Visit: Yes Status: Acute Qualifiers: Heart failure type: unspecified Heart failure chronicity: acute on chronic Qualified Code(s): I50.9 - Heart failure, unspecified (3) UTI (urinary tract infection) Current Visit: Yes Status: Acute Qualifiers: Urinary tract infection type: acute cystitis Hematuria presence: with hematuria Qualified Code(s): N30.01 - Acute cystitis with hematuria (4) Rheumatoid arthritis Current Visit: Yes Status: Chronic Qualifiers: Rheumatoid arthritis location: unspecified site (5) Hematoma Current Visit: No Status: Acute (6) Atrial fibrillation Current Visit: No Status: Chronic Qualifiers: Atrial fibrillation type: unspecified chronic Qualified Code(s): I48.20 - Chronic atrial fibrillation, unspecified; I48.2 - Chronic atrial fibrillation Physician Review: Patient Assessed, Agree with Above Assessment and Plan Physician Review Additional Text: General - Obese , drowsy , on 2L NC 02 , Elderly female Heent -JYOTI/EOMI Neck -no JVD, no bruit Resp - b/l creps , diminished bases CV -sis2, atrial fib GI- full, soft abd , BS + peg - barbosa + , rachelle urine , BOLA- right groin hematoma , dec 2+ pedal edema b/l Neuro -lethargic+, A/P LILLIAM-likely due to ATN from hypotension Hypotension UTI with sepsis Metabolic/infectious encephalopathy Septic shock hx of CHF- with fluid overload /anasarca Leucocytosis Blood loss anemia - s/p on PRBC Right groin/femoral hematoma New Systolic CHF with global hypokinesis Hx of Pul HTN Hypomagnesemia Hypophosphatemia PLAN LILLIAM -creatinine improving to 1.09 -serum sodium improved -wean off IV pressors -c/w lasix -c/w to keep MAP above 70 Replete magnesium Continue low-dose Lasix -renal sono reviewed -will replete phosphrous today with k-phos Hypotension -improved likely due to sepsis/cardiorenal syndrome c/w dobutamine drip New onset CHF systolic CHFprior history of pulmonary hypertension Possibility of acute coronary event causing new CHF considered Consider cardiology for cardiac cath Atrial fib - on A/C Anemiastatus post PRBC ,Keep H&H above 7 Sepsis- on abx, Urine culture no significant growth to date C diff colitis -c/w abx , wbc trending down
[2021-07-27 14:34] LABS: Magnesium 2.2
--- NOTE | 2021-07-27 16:10 | RAD REPORT ---
EXAM DESCRIPTION: MRI - Brain W/Wo Cont - 07/27/2021 3:49 pm CLINICAL HISTORY: cerebral edema Headache, drowsiness COMPARISON: MRA Head Wo Cont dated 07/27/2021; MRA Neck W/Wo Cont dated 07/27/2021; Brain Wo Cont dated 07/03/2020 TECHNIQUE: Multi-sequence, multiplanar MR imaging of the brain was performed with contrast. FINDINGS: No intracranial hemorrhage, hydrocephalus, or extra-axial fluid collection.Mild brain atro phy with mild periventricular and deep white matter chronic microvascular ischemic changes. No edema or shift of midline structures. No intracranial mass. DWI is negative for acute CVA. The midline structures are normally formed. Mastoid air cells and paranasal sinuses are clear. Thin, diffuse dural enhancement is noted bilaterally. IMPRESSION: Thin, diffuse pattern dural enhancement noted. This is a nonspecific finding, but has de scribed cases of intracranial hypotension.
--- NOTE | 2021-07-27 16:13 | RAD REPORT ---
EXAM DESCRIPTION: MRI - MRA Head Wo Cont - 07/27/2021 3:49 pm CLINICAL HISTORY: cerebral edema CVA COMPARISON: Head Brain Wo Cont dated 07/22/2021 FINDINGS: 3D noncontrast [id number] MR angiography of the [place] was performed. No aneurysm, flow-limiting stenosis or vascular malformation is seen. Forward flow seen in codominant vertebral arteries. The visualized dural venous sinuses appear patent. IMPRESSION: No significant flow abnormality of the [place] is identified.
--- NOTE | 2021-07-27 16:15 | RAD REPORT ---
EXAM DESCRIPTION: MRI - MRA Neck W/Wo Cont - 07/27/2021 3:49 pm CLINICAL HISTORY: cerebral edema Headache, drowsiness COMPARISON: Head Brain Wo Cont dated 07/22/2021; Head Brain Wo Cont dated 05/29/2021 FINDINGS: Contrast enhance 2D [id number] MR angiography of the neck vessels was performed. A left aortic arch is present. Normal great vessel origin branching pattern noted. Both subclavian ar teries common carotid arteries are patent and symmetric. No significant carotid stenosis is seen on either side. There is mild narrowing of both carotid bulbs present, less than 50% based on NASCET criteria. Antegrade flow is seen in both vertebral arteries. IMPRESSION: No significant flow abnormality of the neck vessels identified.
[2021-07-27] MEDS: CEFEPIME 1 GM in NA CHLORIDE 0.9% 100 ML IV SCH (17:23)
[2021-07-28] MEDS ORDERED: ALBUMIN HUMAN 25% 100 ML IV ONE (02:09)
[2021-07-28] MEDS: ALBUMIN HUMAN 25% 100 ML IV SCH ×4 (03:00→20:18)
[2021-07-28 05:10] LABS: Absolute Lymphocytes (CBC) 1.6 K/uL (0.7-4.9); Hematocrit 25.3 % (36.0-45.0); Lymphocytes % 11.2 % (15.3-44.8); MPV 7.5 fL (7.6-11.3); RBC Red Blood Cell Count 2.85 M/uL (3.86-4.86)
[2021-07-28 05:48] LABS: Albumin 4.9 g/dL (3.4-5.0); Phosphorus 1.8 mg/dL (2.5-4.9); Potassium 3.4 mmol/L (3.5-5.1)
[2021-07-28] MEDS ORDERED: POTASSIUM PHOS IN 0.9 % NACL 15 MMOL/250 ML BAG IV ONE (05:57)
--- NOTE | 2021-07-28 06:04 | P.PN ---
Date of Service: 07/28/21 Subjective: stable Slight improvement each day Continues with delusions of hallucinations. Eating slightly more, with assistance from her 4-5 soft bowel movement yesterday, started to become more formed per nursing staff ROS: 10 point ROS as noted above, otherwise negative Physical exam GEN: AOx2, slow to answer / slow speech HEENT: Normal conjunctiva, sclera anicteric CV: Irregularly irregular rhythm, 2+ lower extremity edema up to hips bila terally Pulm: Nonlabored respirations on 2L NC ABD: Soft, nontender, nondistended Integumentary: Right anterior thigh hematoma and ecchymosis Neuro: follows commands, moves extremities, generalized weakness Right femoral central venous access Problem List Sepsis with septic shock secondary to UTI / C.diff c.diff colitis new onset systolic CHF with h/o severe pulmonary hypertension Anasarca Hypoalbuminemia Chronic atrial fibrillation Acute metabolic encephalopathy secondary to UTI, cerebral edema Right anterior thigh hematoma Acute blood loss anemia Cerebral edema Off pressors since midnight/1 AM on 07/27 albumin infusion for third spacing, nephrology consulted, received Lasix as well Blood pressures been stable/either mildly elevated at times, urine output has picked up blood pressure is improved Nephrology following, assisting with diuresis/electrolyte abnormalities IV vanc changed to PO on 07/25 - c.diff resulted positive. continues on cefepime. UA with positive nitrite/leukoesterase, bacteriuria. Urine culture with mixed angela Blood culture without growth Continue IV cefepime, once diarrhea improves, can transition to oral option. Neurology consulted for cerebral edema/unresponsiveness, recommended EEG and MRI. Patient more stable today, can likely get MRI done General surgery consulted for left thigh hematoma / central venous access - recommended medical management for now repeat CT abd/pelvis: Negative for retroperitoneal bleed, hematoma slightly enlarged s/p 2uPRBC on 07/24, 1uPRBC on 07/25 cardiology consulted - new onset systolic CHF, h/o severe pulmonary hypertension -no further work-up/change medications at this time VTE: avoiding due to hematoma Code: full Dispo: Stable for transfer to med/surgery floor Time Spent Managing Pts Care (In Minutes): 35
[2021-07-28] MEDS: VANCOMYCIN ORAL SOLN 250 MG/5 ML OSYR PO SCH ×4 (06:10→23:58)
[2021-07-28] MEDS: INSULIN -REGULAR HUMAN 50 UNIT/0.5 ML ML SQ SCH ×4 (07:30→20:24)
[2021-07-28] MEDS: FUROSEMIDE 40 MG/4 ML VIAL IV SCH (08:55)
[2021-07-28] MEDS: FOLIC ACID 1 MG in NA CHLORIDE 0.9% 50 ML IV SCH (08:55)
[2021-07-28] MEDS ORDERED: POTASSIUM CL SA 10 MEQ TAB PO ONE (09:00)
[2021-07-28] MEDS ORDERED: ARIPiprazole 5 MG TAB PO SCH (13:00)
[2021-07-28] MEDS ORDERED: ESCITALOPRAM 20 MG TAB PO SCH (13:00)
--- NOTE | 2021-07-28 13:10 | PN ---
Date of Progress Note: 07/28/2021 Ms. Morin had come in with cerebral edema, chronic atrial fibrillation, congestive heart failure, se key pulmonary hypertension. She has improved drastically. She is still a little bit confused, but she is much more awake. Her vital signs are stable. Heart rate of 89 with atrial fibrillation. She is afebrile, breathing at 22 times a minute, O2 saturation now is 96% on nasal cannula 2 L. Her las t creatinine is 0.94. Last hemoglobin is 8.1. Neurology is still following the patient. A brain MR I that was done revealed intracranial hypotension with some dural enhancement, nonspecific finding. A brain MRI with MRA was within normal limit. Neck MRA showed no significant stenosis in the carotid artery. Again, we need to continue her treatment for mild CHF with pulmonary hypertension, chronic atrial fibrillation. I agree with her present regimen. She should be on low-dose carvedilol and low -dose JOSSUE inhibitor, low-dose Lasix in addition to her Xarelto and Entresto and sildenafil as long as her blood pressure tolerated. I will sign off her case for now. I will be available for questions if the need arises. NEIL/DESMOND Voice ID: [id number] Report ID: [id number]
--- NOTE | 2021-07-28 13:10 | PN ---
Date of Progress Note: 07/26/2021 Ms. Morin had come in with cerebral edema, mild congestive heart failure, altered mental status. Ne urological evaluation has been done. MRI and MRA are pending as well as an EEG. Echocardiogram whic h was done showed an ejection fraction of 35% to 40%, moderate global hypokinesis with severe pulmona ry hypertension, right ventricular systolic pressure of 89 mmHg. The patient's sodium has improved. Her mental status has improved. We will continue her present regimen. I will continue to follow. NEIL/DESMOND Voice ID: [id number] Report ID: [id number]
--- NOTE | 2021-07-28 13:13 | PN ---
Date of Progress Note: 07/27/2021 Ms. Morin had come in with cerebral edema, chronic atrial fibrillation, rate controlled, severe pulm onary hypertension, moderate congestive heart failure with an ejection fraction 35% to 40%. Today, h er vital signs are stable. She has atrial fibrillation, rate of 76, respiratory rate is 22, her O2 s aturation is 98% on nasal cannula. Her mental status has improved. Neurology continues to follow. She is presently on albumin, Lasix, insulin, antibiotics, potassium. She has a hematoma, so her anti coagulant has been held. I agree with her present regimen. I will continue to follow her. We need to resume her sildenafil for her pulmonary hypertension as soon as possible. NEIL/MODL Voice ID: [id number] Report ID: [id number]
--- NOTE | 2021-07-28 14:55 | P.PN ---
Subjective Date of Service: 07/28/21 Chief Complaint: UTI, cerebral edema, LILLIAM Subjective: No new changes Physical Examination - Vital Signs Temperature: 98.6 F Blood Pressure: 117/79 Pulse: 89 Respirations: 18 Pulse Ox (%): 94 - Physical Exam HEENT: Atraumatic, Normocephalic Neck: Supple Respiratory: Normal air movement Cardiovascular: Regular rate/rhythm, Normal S1 S2 Gastrointestinal: Soft and benign Neurological: Normal tone - Studies Microbiology Data (last 24 hrs): 07/22/21 18:10 Blood - Blood Aerobic Blood Culture - Final No growth in 5 days. 07/22/21 18:10 Blood - Blood Anaerobic Blood Culture - Final No growth in 5 days. 07/22/21 17:50 Blood - Blood Aerobic Blood Culture - Final No growth in 5 days. 07/22/21 17:50 Blood - Blood Anaerobic Blood Culture - Final No growth in 5 days. Assessment And Plan Physician Review: Patient Assessed, Agree with Above Assessment and Plan Physician Review Additional Text: General - Obese , drowsy , on 2L NC 02 , Elderly female Heent -JYOTI/EOMI Neck -no JVD, no bruit Resp - b/l creps , diminished bases CV -sis2, atrial fib GI- full, soft abd , BS + peg - barbosa + , rachelle urine , BOLA- right groin hematoma , dec 2+ pedal edema b/l Neuro -lethargic+, A/P LILLIAM-likely due to ATN from hypotension Hypotension UTI with sepsis Metabolic/infectious encephalopathy Septic shock hx of CHF- with fluid overload /anasarca Leucocytosis Blood loss anemia - s/p on PRBC Right groin/femoral hematoma New Systolic CHF with global hypokinesis Hx of Pul HTN Hypomagnesemia Hypophosphatemia PLAN LILLIAM -resolvd. Cr is 0.94. -weaned off IV pressors -c/w lasix -c/w to keep MAP above 70 Hypotension -improved likely due to sepsis/cardiorenal syndrome c/w dobutamine drip . New onset CHF systolic CHFprior history of pulmonary hypertension Possibility of acute coronary event causing new CHF considered Consider cardiology for cardiac cath Atrial fib - on A/C Anemiastatus post PRBC ,Keep H&H above 7 Sepsis- on abx, Urine culture no significant growth to date C diff colitis -c/w abx , wbc trending down
--- NOTE | 2021-07-28 15:34 | CON ---
Date of Consultation: 07/24/2021 Reason For Consultation: Congestive heart failure. History Of Present Illness: Ms. Morin is a 70-year-old white woman. She is a patient of mine, used to be a patient of Dr. Durham. Now, she is admitted to Dr. Jones and Dr. Wilson. She came in most ly with decreased altered mental status without any specific complaint, has had a recent UTI. She do es take multiple narcotics at home including Xanax and [place] and other psychiatric medication. Has h ad diarrhea. Denied any chest pain. Was found to have hyponatremia and cerebral edema on initial wo rkup. Denied any fever or chills. Denied any cough. Denied any palpitation or syncope. Allergies: SHE IS ALLERGIC TO CODEINE, FENTANYL, MORPHINE, AND BACTRIM. Review of Systems: Negative. Social History: Negative. Family History: Noncontributory. Medications: At home include Xanax, losartan, Acebutolol, Tylenol No.3, Xarelto, sildenafil. Past Medical History: Include severe pulmonary hypertension, rheumatoid arthritis, hypertension, anx iety, atrial fibrillation, and morbid obesity. Physical Examination: Vital Signs: When she first came in; her vital signs were stable. She was in AFib at a rate of 70. She was afebrile. She was obtunded. Her blood pressure was 124/70. She weighed 260 pounds. O2 sa turation was 98% on 4 L of nasal cannula. HEENT: Negative. Neck: Supple without any bruit, lymphadenopathy, JVD, or thyromegaly. Chest: Reveals some rales both bases. Cardiac: Revealed atrial fibrillation. No murmurs, gallops, or rubs. Abdomen: Obese, but benign. Extremities: Revealed 2+ edema and chronic venous insufficiency. Pulses were present in the distal extremities. Neurologic: She was very lethargic. Skin: Dry and intact. Diagnostic Data: Revealed anemia, hemoglobin of 8.1, elevated white count. Normal creatinine. Her head CT showed mild cerebral edema. Chest x-ray showed possible mild fluid overload. CT of the abdo men and pelvis showed large right inguinal hematoma 14 x 7 cm, no acute findings otherwise. Renal ul trasound was technically difficult. Impression And Plan: 1.Cerebral edema. 2.Mild volume overload. 3.Chronic atrial fibrillation, on anticoagulation. 4.Anxiety. 5.Hyponatremia. 6.Severe anemia. 7.Rheumatoid arthritis. 8.Pulmonary hypertension, on sildenafil. 9.Hypertension. I think the patient needs to be diuresed gently. She needs to be fluid restricted. We need to continue her home medication as soon as we can, obtain urological consultation. Conside r MRI, EEG, and sleep study. I will continue to follow her. I think she needs to have an echocardio gram as well. NEIL/DESMOND Voice ID: [id number] Report ID: [id number]
[2021-07-28] MEDS: ALPRAZOLAM 1 MG TABLET PO PRN (16:07)
[2021-07-28] MEDS: CEFEPIME 1 GM in NA CHLORIDE 0.9% 100 ML IV SCH (17:33)
[2021-07-29] MEDS: ALBUMIN HUMAN 25% 100 ML IV SCH (02:54)
[2021-07-29] MEDS: VANCOMYCIN ORAL SOLN 250 MG/5 ML OSYR PO SCH ×4 (06:00→23:43)
[2021-07-29 06:13] LABS: Absolute Lymphocytes (CBC) 1.5 K/uL (0.7-4.9); Hematocrit 26.6 % (36.0-45.0); Lymphocytes % 11.4 % (15.3-44.8); MPV 7.5 fL (7.6-11.3); RBC Red Blood Cell Count 2.97 M/uL (3.86-4.86)
--- NOTE | 2021-07-29 06:16 | P.PN ---
Date of Service: 07/29/21 Subjective: Transferred to medical floor yesterday Slowly improving all-around Continues with multiple bowel movements a day Becoming more formed, less watery Continues with hallucinations/delusions ROS: 10 point ROS as noted above, otherwise negative Physical exam GEN: AOx2, confused at times, answers inappropriately HEENT: Normal conjunctiva, sclera anicteric CV: Irregularly irregular rhythm, 1+ lower extremity edema up to hips bilaterally Pulm: Nonlabored respirations on 2L NC ABD: Soft, nontender, nondistended Integumentary: Right anterior thigh hematoma and ecchymosis, around central venous access Neuro: follows commands, moves extremities, generalized weakness : Boone catheter in place Problem List Sepsis with septic shock secondary to UTI / C.diff c.diff colitis new onset systolic CHF with h/o severe pulmonary hypertension Anasarca Hypoalbuminemia Chronic atrial fibrillation Acute metabolic encephalopathy secondary to UTI, cerebral edema Right anterior thigh hematoma Acute blood loss anemia Cerebral edema Off pressors since midnight/1 AM on 07/27 Albumin infusion DC'd 07/29, continue with Lasix for diuresis Edema/anasarca improving Appreciate nephrology's assistance, continue Boone catheter, possibly DC in the next 1-2 days IV Vanco changed to p.o. on 07/25, C. difficile resulted positive. Diarrhea improving, continues with multiple bowel movements, but becoming more formed Completed 5 days of IV cefepime for possible UTI, urine culture with mixed angela Neurology was consulted initially for cerebral edema/unresponsiveness, obtained MRI which revealed nonspecific changes, likely from hypotension Neurology states this may be patient's new baseline, may take weeks to months to improve General surgery initially consulted for left thigh hematoma/central linerecommended medical management Repeat CT abdomen/pelvis: Negative for retroperitoneal bleed, hematoma slightly enlarged Hemoglobin has remained stable, s/p 2uPRBC on 07/24, 1uPRBC on 07/25 cardiology consulted - new onset systolic CHF, h/o severe pulmonary hypertension -no further work-up/change medications at this time Restart sildenafil on 07/29 Blood pressure much improved, now becoming more hypertensive, allowing room for diuresis Will restart antihypertensives stepwise as needed/appropriate Restart Abilify, Lexapro, Xanax on 07/28, however patient's adamantly refused to restart on Abilify and Lexapro. He states she was started on this 5 days before everything happened, states that these medications made her very sleepy/lethargic Physical therapy consulted VTE: avoiding due to hematoma Code: full Dispo: Anticipate DC home in 2-3 days Discussed with patient and , do not want to go to SNF, wants to go home with home health care/PT Time Spent Managing Pts Care (In Minutes): 35
[2021-07-29 06:31] VITALS: BMI 52.5
[2021-07-29] MEDS: INSULIN -REGULAR HUMAN 50 UNIT/0.5 ML ML SQ SCH ×4 (07:30→20:52)
[2021-07-29 07:37] LABS: Albumin 4.8 g/dL (3.4-5.0); Bilirubin Total 2.1 mg/dL (0.2-1.0); Potassium 3.6 mmol/L (3.5-5.1); Protein, Total 6.7 g/dL (6.4-8.2)
[2021-07-29] MEDS ORDERED: POTASSIUM CL SA 10 MEQ TAB PO ONE (09:00)
[2021-07-29] MEDS: FUROSEMIDE 40 MG/4 ML VIAL IV SCH (09:23)
[2021-07-29] MEDS: SILDENAFIL CITRATE 20 MG TABLET PO SCH ×3 (09:27→20:50)
[2021-07-29] MEDS: LACTOBACILLUS/ACIDOPHILUS TAB PO SCH ×2 (09:27→20:51)
[2021-07-29] MEDS: HYDROCODONE/APAP 5/325 MG TAB PO PRN ×2 (11:38→20:51)
[2021-07-29 14:34] LABS: Magnesium 1.8
--- NOTE | 2021-07-29 15:31 | P.PN ---
Subjective Date of Service: 07/29/21 Chief Complaint: UTI, cerebral edema, LILLIAM Subjective: No new changes, Improving Physical Examination - Vital Signs Temperature: 97.4 F Blood Pressure: 170/82 Pulse: 76 Respirations: 18 Pulse Ox (%): 100 - Physical Exam General: Alert, Oriented x3 HEENT: Atraumatic, Normocephalic Neck: Supple Respiratory: Normal air movement Cardiovascular: Regular rate/rhythm, Normal S1 S2 Gastrointestinal: Soft and benign Neurological: Normal speech, Normal strength at 5/5 x4 extr, Normal tone Assessment And Plan Physician Review: Patient Assessed, Agree with Above Assessment and Plan Physician Review Additional Text: General - Obese , drowsy , on 2L NC 02 , Elderly female Heent -JYOTI/EOMI Neck -no JVD, no bruit Resp - b/l creps , diminished bases CV -sis2, atrial fib GI- full, soft abd , BS + peg - barbosa + , rachelle urine , BOLA- right groin hematoma , dec 2+ pedal edema b/l Neuro -lethargic+, A/P LILLIAM-likely due to ATN from hypotension Hypotension UTI with sepsis Metabolic/infectious encephalopathy Septic shock hx of CHF- with fluid overload /anasarca Leucocytosis Blood loss anemia - s/p on PRBC Right groin/femoral hematoma New Systolic CHF with global hypokinesis Hx of Pul HTN Hypomagnesemia Hypophosphatemia PLAN LILLIAM -resolvd. Cr is 0.94. -weaned off IV pressors -c/w lasix -c/w to keep MAP above 70 Hypotension -improved likely due to sepsis/cardiorenal syndrome continue present care. New onset CHF systolic CHFprior history of pulmonary hypertension Cardiology following. Atrial fib - on A/C Anemiastatus post PRBC ,Keep H&H above 7 Sepsis- on abx, Urine culture no significant growth to date C diff colitis -c/w abx , wbc trending down
[2021-07-30] MEDS: HYDROCODONE/APAP 5/325 MG TAB PO PRN ×2 (04:52→21:00)
[2021-07-30] MEDS: VANCOMYCIN ORAL SOLN 250 MG/5 ML OSYR PO SCH ×4 (05:05→23:06)
[2021-07-30 05:16] LABS: Hematocrit 25.3 % (36.0-45.0); RBC Red Blood Cell Count 2.84 M/uL (3.86-4.86)
--- NOTE | 2021-07-30 05:52 | P.PN ---
Subjective Date of Service: 07/30/21 Chief Complaint: UTI, cerebral edema, LILLIAM Subjective: No new changes, Improving Physical Examination - Vital Signs Temperature: 97.3 F Blood Pressure: 132/58 Pulse: 78 Respirations: 16 Pulse Ox (%): 100 - Physical Exam General: Oriented x3 HEENT: Atraumatic, Normocephalic Neck: Supple Respiratory: Normal air movement Cardiovascular: Regular rate/rhythm, Normal S1 S2 Gastrointestinal: Soft and benign Neurological: Normal speech, Normal strength at 5/5 x4 extr, Sensation intact, Cranial nerves 3-12 intact Assessment And Plan Physician Review: Patient Assessed, Agree with Above Assessment and Plan Physician Review Additional Text: LILLIAM-likely due to ATN from hypotension, resolved. UTI with sepsis Metabolic/infectious encephalopathy hx of CHF- with fluid overload /anasarca Blood loss anemia - s/p on PRBC Right groin/femoral hematoma New Systolic CHF with global hypokinesis Hx of Pul HTN Hypomagnesemia Hypophosphatemia PLAN LILLIAM -resolved. Cr is 0.94. we will follow labs and clinical parameters. Hypotension-resolved. likely due to sepsis/cardiorenal syndrome continue present care. New onset CHF systolic CHFprior history of pulmonary hypertension Cardiology following. Atrial fib - on A/C Anemiastable Hb level. Keep H&H above 7 C diff colitis -c/w abx , wbc trending down. we will start probiotics.
--- NOTE | 2021-07-30 06:13 | P.PN ---
Date of Service: 07/30/21 Subjective: Slowly improving each day No new symptoms/complaints Continues with some confusion edema improving ROS: 10 point ROS as noted above, otherwise negative Physical exam GEN: AOx2, confused at times HEENT: Normal conjunctiva, sclera anicteric CV: Irregularly irregular rhythm, 1+ lower extremity edema up to hips bilaterally Pulm: Nonlabored respirations on 2L NC ABD: Soft, nontender, nondistended Integumentary: Right anterior thigh hematoma and ecchymosis, around central venous access Neuro: follows commands, moves extremities, generalized weakness : Boone catheter in place Problem List Sepsis with septic shock secondary to UTI / C.diff c.diff colitis new onset systolic CHF with h/o severe pulmonary hypertension Anasarca Hypoalbuminemia Chronic atrial fibrillation Acute metabolic encephalopathy secondary to UTI, cerebral edema Right anterior thigh hematoma Acute blood loss anemia Cerebral edema Off pressors since midnight/1 AM on 07/27, off albumin infusions since 07/29 continue with Lasix for diuresis Edema/anasarca improving Appreciate nephrology's assistance, continue Boone catheter, likely dc tomorrow IV Vanco changed to p.o. on 07/25, C. difficile resulted positive. Diarrhea improving, continues with multiple bowel movements, but becoming more formed Completed 5 days of IV cefepime for possible UTI, urine culture with mixed angela Neurology was consulted initially for cerebral edema/unresponsiveness, obtained MRI which revealed nonspecific changes, likely from hypotension Neurology states this may be patient's new baseline, may take weeks to months to improve General surgery initially consulted for left thigh hematoma/central linerecommended medical management Repeat CT abdomen/pelvis: Negative for retroperitoneal bleed, hematoma slightly enlarged Hemoglobin has remained stable, s/p 2uPRBC on 07/24, 1uPRBC on 07/25 Patient has been overall improving, stepwise restarting her home medications, possibly DC central line in the next 1-2 days, monitor for bleed afterwards cardiology consulted - new onset systolic CHF, h/o severe pulmonary hypertension -no further work-up/change medications at this time Restarte sildenafil on 07/29 BP improved, now hypertensive, restarted on losartan, will restart acebutolol today Restarted Abilify, Lexapro, Xanax on 07/28, however patient's adamantly refused to restart on Abilify and Lexapro. He states she was started on this 5 days before everything happened, states that these medications made her very sleepy/lethargic. Only wants Xanax/[place] restarted Physical therapy consulted VTE: avoiding due to hematoma Code: full Dispo: Anticipate DC home in ~2 days Discussed with patient and , do not want to go to SNF, wants to go home with home health care/PT Time Spent Managing Pts Care (In Minutes): 35
[2021-07-30] MEDS: INSULIN -REGULAR HUMAN 50 UNIT/0.5 ML ML SQ SCH ×4 (07:30→21:00)
[2021-07-30 07:40] LABS: Phosphorus 2.2 mg/dL (2.5-4.9); Potassium 4.3 mmol/L (3.5-5.1)
[2021-07-30] MEDS: LACTOBACILLUS/ACIDOPHILUS TAB PO SCH ×2 (07:57→21:00)
[2021-07-30] MEDS: LOSARTAN POTASSIUM 50 MG TABLET PO SCH ×2 (07:57→08:59)
[2021-07-30] MEDS: SILDENAFIL CITRATE 20 MG TABLET PO SCH ×3 (07:58→21:00)
[2021-07-30] MEDS: FUROSEMIDE 40 MG TABLET PO SCH (07:58)
[2021-07-30] MEDS: ALPRAZOLAM 1 MG TABLET PO PRN (11:12)
[2021-07-30 14:01] LABS: Magnesium 1.7
[2021-07-30] MEDS: ACEBUTOLOL HCL 400 MG PO SCH (20:59)
[2021-07-30] MEDS: ENSURE HIGH PROTEIN 237 ML CAN PO SCH (21:00)
[2021-07-30] MEDS ORDERED: POTASS/SODIUM PHOSPHATE 1 PKT POWD.PACK PO SCH (21:00)
[2021-07-30] MEDS: POTASS/SODIUM PHOSPHATE 1 PKT POWD.PACK PO SCH ×3 (21:00→23:07)
[2021-07-30] MEDS ORDERED: MAGNESIUM SULFATE 1 gm IVPB 1 GM/100 ML BAG IV ONE (21:00)
[2021-07-31 04:52] LABS: Hematocrit 25.4 % (36.0-45.0); MPV 7.5 fL (7.6-11.3); RBC Red Blood Cell Count 2.82 M/uL (3.86-4.86)
[2021-07-31 05:15] LABS: Phosphorus 2.9 mg/dL (2.5-4.9); Potassium 4.2 mmol/L (3.5-5.1)
[2021-07-31] MEDS: VANCOMYCIN ORAL SOLN 250 MG/5 ML OSYR PO SCH ×3 (06:07→18:13)
[2021-07-31] MEDS: INSULIN -REGULAR HUMAN 50 UNIT/0.5 ML ML SQ SCH ×4 (07:30→21:00)
[2021-07-31] MEDS: ENSURE HIGH PROTEIN 237 ML CAN PO SCH ×2 (09:00→21:56)
[2021-07-31] MEDS: LACTOBACILLUS/ACIDOPHILUS TAB PO SCH ×2 (09:00→21:53)
[2021-07-31] MEDS: SILDENAFIL CITRATE 20 MG TABLET PO SCH ×3 (09:00→21:53)
[2021-07-31] MEDS: FUROSEMIDE 40 MG TABLET PO SCH (09:00)
[2021-07-31] MEDS: ACEBUTOLOL HCL 400 MG PO SCH ×2 (09:00→21:52)
[2021-07-31] MEDS: LOSARTAN POTASSIUM 50 MG TABLET PO SCH (09:01)
[2021-07-31] MEDS: ALPRAZOLAM 1 MG TABLET PO PRN ×2 (11:58→21:53)
[2021-07-31 12:13] LABS: Magnesium 1.7
--- NOTE | 2021-07-31 16:26 | P.PN ---
Subjective Date of Service: 07/31/21 Chief Complaint: UTI, cerebral edema, LILLIAM Patient is awake and interactive. Vitals are stable. Patient reports panic attack last night. Her Xanax have been resumed. Physical Examination - Vital Signs Temperature: 97.9 F Blood Pressure: 135/57 Pulse: 74 Respirations: 18 Pulse Ox (%): 94 Assessment And Plan - Current Problems (Diagnosis) (1) Hypovolemic shock Current Visit: Yes Status: Acute (2) Septic shock Current Visit: Yes Status: Acute (3) Anasarca Current Visit: Yes Status: Acute (4) Hypoalbuminemia Current Visit: Yes Status: Acute (5) Cerebral edema Current Visit: Yes Status: Acute (6) Acute metabolic encephalopathy Current Visit: Yes Status: Acute (7) UTI (urinary tract infection) Current Visit: Yes Status: Acute Qualifiers: Urinary tract infection type: acute cystitis Hematuria presence: with hematuria Qualified Code(s): N30.01 - Acute cystitis with hematuria (8) Pulmonary hypertension Current Visit: No Status: Chronic - Plan Problem List Sepsis with septic shock secondary to UTI / C.diff c.diff colitis new onset systolic CHF with h/o severe pulmonary hypertension Anasarca Hypoalbuminemia Chronic atrial fibrillation Acute metabolic encephalopathy secondary to UTI, cerebral edema Right anterior thigh hematoma Acute blood loss anemia Cerebral edema Off pressors since midnight/1 AM on 07/27, off albumin infusions since 07/29 continue with Lasix for diuresis Edema/anasarca improving on oral lasix. Nephrology is following renal function. Barbosa catheter in place. D/C barbosa. IV Vanco changed to p.o. on 07/25 for C. difficile resulted positive. Diarrhea improving. Completed 5 days of IV cefepime for possible UTI, urine culture with mixed angela Neurology was consulted initially for cerebral edema/unresponsiveness, obtained MRI which revealed nonspecific changes, likely from hypotension Patient's mental status improved and communicating meaningfully. General surgery initially consulted for left thigh hematoma/central line who recommended medical management Repeat CT abdomen/pelvis: Negative for retroperitoneal bleed, hematoma slightly enlarged Hemoglobin has remained stable, s/p 2uPRBC on 07/24, 1uPRBC on 07/25 Patient has been overall improving, stepwise restarting her home medications. Discontinue central line. cardiology consulted - new onset systolic CHF, h/o severe pulmonary hypertension -no further work-up or medication change at this time. Continue sildenafil on 07/29 BP improved, now hypertensive. Continue losartan and acebutolol. Continue Xanax on 07/28. Patient's refused to restart Abilify and Lexapro.
[2021-08-01] MEDS: VANCOMYCIN ORAL SOLN 250 MG/5 ML OSYR PO SCH ×4 (00:06→17:30)
[2021-08-01] MEDS: INSULIN -REGULAR HUMAN 50 UNIT/0.5 ML ML SQ SCH ×3 (07:30→16:30)
[2021-08-01] MEDS: SILDENAFIL CITRATE 20 MG TABLET PO SCH ×2 (09:00→14:50)
[2021-08-01] MEDS: ENSURE HIGH PROTEIN 237 ML CAN PO SCH (09:00)
[2021-08-01] MEDS: LACTOBACILLUS/ACIDOPHILUS TAB PO SCH (09:32)
[2021-08-01] MEDS: LOSARTAN POTASSIUM 50 MG TABLET PO SCH (09:32)
[2021-08-01] MEDS: FUROSEMIDE 40 MG TABLET PO SCH (09:33)
[2021-08-01] MEDS: ACEBUTOLOL HCL 400 MG PO SCH (09:34)
--- NOTE | 2021-08-01 16:28 | P.DS ---
Admission Date: 07/22/21 Discharge Date: 08/01/21 Disposition: DC HOME/HOME HEALTH CARE Discharge Condition: FAIR Reason for Admission: UTI, cerebral edema, LILLIAM - Problems (1) Hypovolemic shock Status: Acute (2) Septic shock Status: Acute (3) Anasarca Status: Acute (4) Hypoalbuminemia Status: Acute (5) Cerebral edema Status: Acute (6) Acute metabolic encephalopathy Status: Acute (7) UTI (urinary tract infection) Status: Acute Qualifiers: Urinary tract infection type: acute cystitis Hematuria presence: with hematuria Qualified Code(s): N30.01 - Acute cystitis with hematuria (8) Pulmonary hypertension Status: Chronic Brief History of Present Illness: Ms. Morin is a 70 yo morbidly obese F with pulmonary HTN, CHF, atrial fibrillation on xarelto, HTN, and RA who presents with 3 days of decreased responsiveness. Her says that she has been sleeping continuously and he has been able to wake her during the day. He has been decreasing her medications to see if she would become more alert and she did not. He says she has been having diarrhea at home. At bedside, she is unresponsive aside from grunting and groaning. Central line was placed in the ED, and a large hematoma formed on her R thigh. She was requiring IV levophed to support blood pressure. ED wished to transfer patient due to the [facility] for neurosurgery however refused transfer until the MRI report. WBC 26.8 Na 133 BUN 57 Cr 2.52 GFR 19 alk phos 134 Dbili 0.5 BNP 27281 procal 0.19. UA positive for urinary tract infection. Patient admitted to the ICU for further management. Hospital Course: Diagnosis Sepsis with septic shock secondary to UTI / C.diff c.diff colitis new onset systolic CHF with h/o severe pulmonary hypertension Anasarca Hypoalbuminemia Chronic atrial fibrillation Acute metabolic encephalopathy secondary to UTI, cerebral edema Right anterior thigh hematoma Acute blood loss anemia Cerebral edema Patient admitted to the ICU on pressors. She required multiple pressors, multiple albumin infusions and treated with broad-spectrum IV antibiotics with vancomycin include. Hospital course was protracted, patient spent several days in the ICU, eventually weaned off pressors. She also had anasarca which was treated with Lasix. Nephrology saw patient and assisted with management. She had LILLIAM which resolved with treatment. Patient developed diarrhea and tested positive for C. difficile. IV Vanco changed to p.o. on 07/25 for the C. difficile colitis. Her diarrhea improved. Patient completed 5 days of IV cefepime for possible UTI, urine culture with mixed angela Neurology was consulted initially for cerebral edema/unresponsiveness, obtained MRI which revealed nonspecific changes, likely from hypotension Patient's mental status improved and now communicating meaningfully. General surgery initially consulted for left thigh hematoma/central line who recommended medical management Repeat CT abdomen/pelvis: Negative for retroperitoneal bleed, hematoma slightly enlarged but stable. She was given a total of 3 units PRBC transfusion for anemia. Hemoglobin was stable afterwards. Patient has been overall improving, stepwise restarted her home medications. Heart Central line which was eventually discontinued. cardiology consulted for new onset systolic CHF, h/o severe pulmonary hypertension -no further work-up or medication change at this time. Continued sildenafil after blood pressure improved. Patient became hypertensive so her losartan and acebutolol were resumed Continued Xanax on for anxiety disorder. Patient's refused to Abilify and Lexapro. Patient has clinically improved and deemed stable for discharge. Vital Signs/Physical Exam: Temp Pulse Resp BP Pulse Ox 97.8 F 85 20 155/73 H 94 08/01/21 12:00 08/01/21 12:00 08/01/21 12:00 08/01/21 12:00 08/01/21 12:00 General: Alert, In no apparent distress, Oriented x3 HEENT: Mucous membr. moist/pink Neck: JVD not distended Respiratory: Clear to auscultation bilaterally, Normal air movement Cardiovascular: Regular rate/rhythm, Normal S1 S2, Edema (Bilateral legs) Gastrointestinal: Normal bowel sounds, Soft and benign, Non-distended Musculoskeletal: No tenderness Integumentary: No rashes, No cyanosis Neurological: Other (No focal motor deficit. Patient is globally weak and bedbound.) Laboratory Data at Discharge: WBC 10.10 K/uL (4.3-10.9) 07/31/21 04:45 Hgb 8.2 g/dL (12.0-15.0) L 07/31/21 04:45 Hct 25.4 % (36.0-45.0) L 07/31/21 04:45 Plt Count 351 K/uL (152-406) 07/31/21 04:45 PT 19.3 SECONDS (9.5-12.5) H 07/23/21 04:40 INR 1.67 07/23/21 04:40 APTT Cancelled 07/25/21 15:00 Sodium 137 mmol/L (136-145) 07/31/21 04:45 Potassium 4.2 mmol/L (3.5-5.1) 07/31/21 04:45 BUN 27 mg/dL (7-18) H 07/31/21 04:45 Creatinine 0.94 mg/dL (0.55-1.3) 07/31/21 04:45 Glucose 93 mg/dL (74-106) 07/31/21 04:45 Uric Acid 7.3 mg/dL (2.6-6.0) H 07/22/21 19:50 Phosphorus 2.9 mg/dL (2.5-4.9) 07/31/21 04:45 Magnesium 1.7 08/01/21 07:25 Total Bilirubin 2.1 mg/dL (0.2-1.0) H 07/29/21 04:56 AST 13 U/L (15-37) L 07/29/21 04:56 ALT 14 U/L (12-78) 07/29/21 04:56 Alkaline Phosphatase 67 U/L (45-117) 07/29/21 04:56 Triglycerides 71 mg/dL (<150) 07/23/21 04:40 Cholesterol 84 mg/dL (<200) 07/23/21 04:40 HDL Cholesterol 36 mg/dL (40-60) L 07/23/21 04:40 Cholesterol/HDL Ratio 2.33 07/23/21 04:40 Home Medications: ALPRAZolam [Xanax*] 1 mg PO TID 07/23/21 Acebutolol HCl 400 mg PO BID 07/23/21 Acetaminophen [Tylenol] 325 mg PO TID 07/23/21 Hydrocodone Bit/Acetaminophen [Hydrocodon-Acetaminoph 7.5-325] 1 each PO TID 07/23/21 Losartan Potassium [Cozaar] 100 mg PO DAILY 07/23/21 Sildenafil Citrate [Revatio*] 20 mg PO TID 07/23/21 Ensure High Protein 237 ml PO BID #60 can 08/01/21 Furosemide [Lasix*] 40 mg PO DAILY #30 tab 08/01/21 Lactobacillus Acidophilus [Acidophilus Probiotic] 1 each PO TID #90 capsule 08/01/21 Vancomycin Oral Soln [Vancocin HCl*] 5 ml PO Q6HR #150 ml 08/01/21 New Medications: Vancomycin Oral Soln [Vancocin HCl*] 5 ml PO Q6HR #150 ml Lactobacillus Acidophilus [Acidophilus Probiotic] 1 each PO TID #90 capsule Ensure High Protein 237 ml PO BID #60 can Furosemide [Lasix*] 40 mg PO DAILY #30 tab Diet: ADA Activity: Fall precautions Followup: Elryo Durham MD [Primary Care Provider] - Time spent managing pt's care (in minutes): 40
[2021-08-01 17:12] VITALS: BP 151/86; TEMP 97.4
[2021-08-01 20:56] VITALS: O2SAT 93
== END 2021-08-01 21:30 | disposition home health service (06) | DRG 871 ==
LOC: ER 15:14 → 3RD-ICU 22:19 → 2ND 07-28 17:33
PROVIDERS: ADMIT Internal Medicine; ATTEND Internal Medicine
PROC: 06HY33Z Insertion of Infusion Device into Lower Vein, Percutaneous Approach (ICD-10-PCS; principal; 2021-07-22)
DX: A41.9 Sepsis, unspecified organism (principal); R65.21 Severe sepsis with septic shock; G93.41 Metabolic encephalopathy; I50.21 Acute systolic (congestive) heart failure; R57.1 Hypovolemic shock; G93.6 Cerebral edema; N17.0 Acute kidney failure with tubular necrosis; N39.0 Urinary tract infection, site not specified; A04.72 Enterocolitis due to Clostridium difficile, not specified as recurrent; I48.20 Chronic atrial fibrillation, unspecified; E87.1 Hypo-osmolality and hyponatremia; D62 Acute posthemorrhagic anemia; I11.0 Hypertensive heart disease with heart failure; I27.20 Pulmonary hypertension, unspecified; E88.09 Other disorders of plasma-protein metabolism, not elsewhere classified; S70.11XA Contusion of right thigh, initial encounter; E83.42 Hypomagnesemia; M06.9 Rheumatoid arthritis, unspecified; Z20.822 Contact with and (suspected) exposure to COVID-19
CPT/HCPCS: 36415; 51702; 70450; 70544; 70549; 70553; 71045; 71250; 74176; 76770; 80048; 80053; 80061; 80069; 80076; 80202; 81003; 81015; 82140; 82550; 82570; 82947; 83605; 83735; 83880; 84100; 84145; 84156; 84439; 84443; 84484; 84550; 85014; 85018; 85025; 85027; 85610; 85730; 86850; 86900; 86901; 87040; 87086; 87088; 87324; 87449; 92526; 92610; 93306; 95819; 97110; 97162; 99291; A9577; J0692; J1250; J1644; J1940; J2370; J2405; J3370; J3475; J7030; J7040; J7050; J7060; P9016; P9047; U0003

== ENCOUNTER → 2021-07-22 | Emergency (ER) | payer OTHER ==
--- OUTSIDE RECORDS SUMMARY | 2021-07-22 15:27 | XMS REPORT | Continuity of Care Document ---
:1950 Author Organization [facility] t Address [address] [place] [address] Care Team Providers Name Role Phone CANDIDA [...] Facility Department ID 2020-05-11 2020-05-11 Emergency ER [facility] Emergency [id number] [facility] 18:42:00 18:42:00 2020-04-04 2020-04-04 Orders Doctor STEVEN 1.2.840.114 [id number] 96 00:00:00 00:00:00 Only Unassigned, UBALDO 350.1.13.10 [place] [facility] 42.7.2.686 [id number] 2019-02-04 2019-02-04 [facility] 1.2.840.114 [id number] 09:34:48 23:59:00 Encounter [place] 350.1.13.10 [place] 4.2.7.2.686 [place] [id number] 2019-02-04 2019-02-04 Orders Doctor STEVEN 1.2.840.114 [id number] 24 00:00:00 00:00:00 Only Unassigned, UBALDO 350.1.13.10 [place] [facility] 4.2.7.2.686 [id number] Results Test Description Test Time Test Comments Results Result Comments Source SARS-COV2/RT-PCR ([facility]) 2020-05-12 16:13:00 Test Item Value Reference Range Interpretation Comme nts SARS-COV2/RT-PCR (test code = 8731156) Negative Not Detected, N egative, See external report for linked test SARS-COV-2 PERFORMING LAB (test code = [facility] 3447756) Negative result for this test determines that [...] the Wilde SARS-CoV-2 assay.Fact Sheet for Healthcare Providers:https://www.HackerHAND.wilde/laura/ YE_QSPO-QyZ-1_ESP_Inqq_Sgrdm_93-153902.pdfFact Sheet for Healthcare Patients:https://www.HackerHAND.Nuventix zeinab/laura/QJ_KQQB-DlH-2_Emqbtla_Hvpe_Egpec_AL_25-305304S6.pdfPerforming Laboratory:[address] [id number] W/PLT COUNT & AUTO [id number] 06:31:00 Test Item Value Reference Range Interpretation [...] (BEAKER) (test code = 2801) BLOOD GAS, [id number] 06:27:00 Test Item Value Reference Range Interpretation [...] (test code = 1819) 28.0 LACTIC ACID, [id number] 05:02:00 Test Item Value Reference Range Interpretation Comments LACTATE BLOOD VENOUS 0.94 mmol/L 0.50-2.20 Specime n markedly (2) (BEAKER) (test hemolyzed code = 2872) Specification Writer ID - PIAYA LRAD, CHEST, 1 VIEW, NON [id number] 04:10:00Reason for exam:->hypoxiaShould this be performed at the bedside?->Yes [facility] : 1950 Sex: [...] MDReport Verified Date/Time: 05/12/2020 04:10:32 BASIC METABOLIC [id number] 00:06:00 Test Item Value Reference Range Interpretation [...] S NOT APPLICABLE FOR DIALYSIS PATIEN TS. Specification Writer ID - PIAYA LPROTHROMBIN TIME/[id number] 23:58:00 Test Item Value Reference Range Interpretation [...] mechanical heart valves.CBC W/PLT COUNT & AUTO [id number] 23:52:00 Test Item Value Reference Range Interpretation [...] % 0-1 PERCENT (BEAKER) (test code = 6188)
== END ==
LOC: ER 15:22
DX: Z02.9 Encounter for administrative examinations, unspecified (principal)

== ENCOUNTER 2021-08-15 13:30 | Inpatient (IN) | payer OTHER ==
--- OUTSIDE RECORDS SUMMARY | 2021-08-15 13:33 | XMS REPORT | Continuity of Care Document ---
:1950 Author Organization [facility] t Address [address] [place] [address] Care Team Providers Name Role Phone CANDIDA [...] Facility Department ID 2020-05-11 2020-05-11 Emergency ER [facility] Emergency [id number] [facility] 18:42:00 18:42:00 2020-04-04 2020-04-04 Orders Doctor STEVEN [id number] 00:00:00 00:00:00 Only Unassigned, UBALDO [id number] [place] [facility] [id number] 2019-02-04 2019-02-04 [facility] [id number] 09:34:48 23:59:00 Encounter Car [place] [id number] [place] [id number] [place] [id number] 2019-02-04 2019-02-04 Orders Doctor STEVEN [id number] 00:00:00 00:00:00 Only Unassigned, UBALDO [id number] [place] [facility] [id number] [id number] Results Test Description Test Time Test Comments Results Result Comments Source SARS-COV2/RT-PCR ([facility]) 2020-05-12 16:13:00 Test Item Value Reference Range Interpretation Comme nts SARS-COV2/RT-PCR (test code = 8920919) Negative Not Detected, N egative, See external report for linked test SARS-COV-2 PERFORMING LAB (test code = [facility] 5709646) Negative result for this test determines that [...] the Wilde SARS-CoV-2 assay.Fact Sheet for Healthcare Providers:https://www.Cashkaro.wilde/laura/ QA_AXMI-AlE-8_IXX_Ilwx_Ecgzg_[email or web address].pdfFact Sheet for Healthcare Patients:https://www.Cashkaro.PromptCare zeinab/laura/BB_AFXB-[email or web address]_Itct_Alrhz_[email or web address].pdfPerforming Laboratory:[address] [address]HXL W/PLT COUNT & AUTO [id number] 06:31:00 Test Item Value Reference Range Interpretation [...] (BEAKER) (test code = 2801) BLOOD GAS, [id number] 06:27:00 Test Item Value Reference Range Interpretation [...] (test code = 1819) 28.0 LACTIC ACID, [id number] 05:02:00 Test Item Value Reference Range Interpretation Comments LACTATE BLOOD VENOUS 0.94 mmol/L 0.50-2.20 Specime n markedly (2) (BEAKER) (test hemolyzed code = 2872) Brazing Machine Setter ID - PIAYA LRAD, CHEST, 1 VIEW, NON [id number] 04:10:00Reason for exam:->hypoxiaShould this be performed at the bedside?->Yes [facility] : 1950 Sex: [...] MDReport Verified Date/Time: 05/12/2020 04:10:32 BASIC METABOLIC [id number] 00:06:00 Test Item Value Reference Range Interpretation [...] S NOT APPLICABLE FOR DIALYSIS PATIEN TS. Brazing Machine Setter ID - PIAYA LPROTHROMBIN [id number] 23:58:00 Test Item Value Reference Range Interpretation [...] mechanical heart valves.CBC W/PLT COUNT & AUTO [id number] 23:52:00 Test Item Value Reference Range Interpretation [...] % 0-1 PERCENT (BEAKER) (test code = 4200)
[2021-08-15] MEDS ORDERED: CEFTRIAXONE 1000 MG/VIAL ONE (14:12)
[2021-08-15] MEDS ORDERED: NA CHLORIDE 0.9% 2,000 ML ONE (14:13)
--- NOTE | 2021-08-15 14:41 | RAD REPORT ---
EXAM DESCRIPTION: RAD - Chest Single View - 08/15/2021 2:24 pm CLINICAL HISTORY: CONGESTION Chest pain. COMPARISON: Chest Single View dated 07/22/2021; Chest Single View dated 05/23/2021; Chest Single View dated 05/22/2021; Chest Pa And Lat (2 Views) dated 10/18/2020 FINDINGS: Portable technique limits examination quality. Mild interstitial pulmonary edema. The heart is significantly enlarged in size. No displaced fracture s.Tortuous thoracic aorta seen. IMPRESSION: Mild CHF.
[2021-08-15 14:49] LABS: Absolute Lymphocytes (CBC) 0.6 K/uL (0.7-4.9); Hematocrit 31.4 % (36.0-45.0); Lymphocytes % 6.6 % (15.3-44.8); MPV 7.7 fL (7.6-11.3)
[2021-08-15 14:53] LABS: Protime INR 2.01
[2021-08-15] MEDS ORDERED: VANCOMYCIN ORAL SOLN 250 MG/5 ML OSYR PO ONE (15:00)
[2021-08-15 15:21] LABS: ALT/SGPT 13 U/L (12-78); AST/SGOT 19 U/L (15-37); Albumin 2.7 g/dL (3.4-5.0); Alkaline Phosphatase 186 U/L (45-117); Amylase 20 U/L (25-115); BUN Blood Urea Nitrogen 54 mg/dL (7-18); Bicarbonate 25 mmol/L (21-32); Bilirubin Direct 1.5 mg/dL (0-0.2); Bilirubin Total 2.5 mg/dL (0.2-1.0); Creatine Phosphokinase 18 U/L (26-192); Glucose Level 99 mg/dL (74-106); Lipase 22 U/L (73-393); Potassium 3.5 mmol/L (3.5-5.1); Protein, Total 6.2 g/dL (6.4-8.2); Sodium Level 140 mmol/L (136-145)
[2021-08-15 15:30] LABS: Urine Blood Negative (Negative); Urine Glucose Negative (Negative); Urine Protein Trace (Negative); Urine Specific Gravity 1.025 (1.005-1.030)
[2021-08-15 15:34] LABS: CKMB Creatine Kinase MB < 1.0 ng/mL (1.0-3.6)
[2021-08-15 15:46] LABS: Urine Bacteria <20 /HPF (<20); Urine RBC <5 /HPF (NONE SEEN); Urine Yeast MANY (NONE SEEN)
--- NOTE | 2021-08-15 15:56 | EDPHYS ---
Physician Documentation [facility] Name: Kati Morin Age: 70 yrs Sex: Female : 1950 Arrival Date: 08/15/2021 Time: 13:36 Bed 8 Private MD: ED Physician Tori Mansfield HPI: 08/15 15:08 This 70 yrs old Female presents to ER via EMS with complaints of Low blood pressure, ma2 Abdominal Pain. 15:08 70-year-old female, history of C. difficile diarrhea in the past, history of UTIs in ma2 the past, she had recent admission to ICU for sepsis UTI, she is on home vancomycin solution at home. However they were out of vancomycin over the last 3 days, patient has watery diarrhea over the last 3 days, and increased sleepiness.. Historical: - Allergies: 13:46 Codeine; tw2 13:46 Fentanyl; tw2 13:46 Morphine; tw2 13:46 sulfamethoxazole-trimethoprim; tw2 - Home Meds: 13:46 Xarelto 10 mg Oral tab 1 tab once daily [Active]; losartan 100 mg Oral tab 1 tab once tw2 daily [Active]; Xanax 1 mg Oral tab 1 tab 3 times per day [Active]; sildenafil 20 mg Oral 1 tab TID [Active]; escitalopram oxalate 20 mg Oral tab 1 tab once daily [Active]; hydrocodone-acetaminophen 7.5-325 mg Oral tab 1 tab every 6 hours [Active]; chlorzoxazone 500 mg Oral tab [Active]; aripiprazole 5 mg Oral tab 0.5 tab once daily [Active]; acebutolol 400 mg Oral cap 1 cap 2 times per day [Active]; - PMHx: 13:46 Anxiety; pulmonary HTN; Atrial Fib; Hypertension; Rheumatoid Arthritis; tw2 - Immunization history:: Adult Immunizations. - Social history:: Smoking status: . - Family history:: not pertinent. ROS: 15:08 Constitutional: Negative for fever, chills, and weight loss, MS/Extremity: Negative for ma2 injury and deformity. 15:08 All other systems are negative. Exam: 15:08 Constitutional: This is a well developed, well nourished patient who is awake, alert, ma2 and in no acute distress. ENT: Nares patent. No nasal discharge, no septal abnormalities noted. Tympanic membranes are normal and external auditory canals are clear. Oropharynx with no redness, swelling, or masses, exudates, or evidence of obstruction, uvula midline. Mucous membranes moist. Neck: Trachea midline, no thyromegaly or masses palpated, and no cervical lymphadenopathy. Supple, full range of motion without nuchal rigidity, or vertebral point tenderness. No Meningismus. Chest/axilla: Normal chest wall appearance and motion. Nontender with no deformity. No lesions are appreciated. Cardiovascular: Regular rate and rhythm with a normal S1 and S2. No gallops, murmurs, or rubs. Normal PMI, no JVD. No pulse deficits. Respiratory: Lungs have equal breath sounds bilaterally, clear to auscultation and percussion. No rales, rhonchi or wheezes noted. No increased work of breathing, no retractions or nasal flaring. Abdomen/GI: Soft, non-tender, with normal bowel sounds. No distension or tympany. No guarding or rebound. No evidence of tenderness throughout. MS/ Extremity: Pulses equal, no cyanosis. Neurovascular intact. Full, normal range of motion. Neuro: Awake and alert, GCS 15, oriented to person, place, time, and situation. Cranial nerves II-XII grossly intact. Motor strength 5/5 in all extremities. Sensory grossly intact. Cerebellar exam normal. Normal gait. Vital Signs: 13:36 BP 93 / 52; Pulse 81; Resp 17; Temp 97.9(TE); Pulse Ox 96% on R/A; Weight 99.79 kg (R); tw2 14:04 BP 83 / 47; Pulse 87; Resp 17; Pulse Ox 96% on R/A; tw2 15:27 BP 89 / 54; Pulse 83; Resp 17; Pulse Ox 96% on R/A; tw2 16:36 BP 105 / 56; Pulse 88; Resp 18; Pulse Ox 97% ; jh6 18:04 BP 83 / 60; Pulse 89; Resp 17; Pulse Ox 97% on R/A; tw2 20:25 BP 88 / 54; Pulse 81; Resp 16; Pulse Ox 96% on R/A; st1 14:04 provider notified. tw2 MDM: 14:10 Patient medically screened. ma2 15:54 Differential diagnosis: gastritis, gastroesophageal reflux disease, Irritable bowel ma2 syndrome, urinary tract infection. Data reviewed: vital signs, nurses notes, EMS record. Counseling: I had a detailed discussion with the patient and/or guardian regarding: the historical points, exam findings, and any diagnostic results supporting the discharge/admit diagnosis, the presence of at least one elevated blood pressure reading (>120/80) during this emergency department visit, the need for outpatient follow up. Response to treatment: the patient's symptoms have mildly improved after treatment. 08/15 14:03 Order name: Amylase, Serum 08/15 14:03 Order name: Basic Metabolic Panel ks08/15 14:03 Order name: Blood Culture Adult (2) 08/15 14:03 Order name: C-Reactive Protein; Complete Time: 15:48 ks08/15 14:03 Order name: CBC with Diff; Complete Time: 15:48 08/15 14:03 Order name: CPK; Complete Time: 15:48 ks08/15 14:03 Order name: Ckmb; Complete Time: 15:48 ks08/15 14:03 Order name: LFT's; Complete Time: 15:48 08/15 14:03 Order name: Lactate; Complete Time: 15:48 08/15 14:03 Order name: Lipase; Complete Time: 15:48 08/15 14:03 Order name: Procalcitonin; Complete Time: 15:48 08/15 14:03 Order name: Protime (+inr); Complete Time: 15:48 08/15 14:03 Order name: Ptt, Activated; Complete Time: 15:48 08/15 14:03 Order name: Troponin HS; Complete Time: 15:48 08/15 14:03 Order name: Urine Microscopic Only; Complete Time: 15:48 ks08/15 14:03 Order name: Chest Single View XRAY; Complete Time: 15:48 ks08/15 14:03 Order name: Cardiac monitoring; Complete Time: 14:55 08/15 14:03 Order name: EKG - Nurse/Tech; Complete Time: 15:22 08/15 14:03 Order name: IV Saline Lock - Large Bore; Complete Time: 15:22 08/15 14:04 Order name: Amylase; Complete Time: 15:48 EDMI 08/15 14:04 Order name: Basic Metabolic Panel; Complete Time: 15:48 [facility] 08/15 14:33 Order name: CDIFF [facility] 08/15 15:30 Order name: Urine Dipstick-Ancillary; Complete Time: 15:48 EDMI 08/15 16:05 Order name: Abdomen [facility] 08/15 16:27 Order name: COVID-19 SARS RT PCR (Document "Date of Onset" if Symptomatic) 08/15 14:03 Order name: Labs collected and sent; Complete Time: 16:42 [facility] 08/15 14:03 Order name: O2 Per Protocol; Complete Time: 16:42 [facility] 08/15 14:03 Order name: O2 Sat Monitoring; Complete Time: 16:42 [facility] 08/15 14:03 Order name: Urine Dipstick-Ancillary (obtain specimen); Complete Time: 16:42 [facility] 08/15 15:30 Order name: Straight Cath - Urine; Complete Time: 15:30 tw2 Administered Medications: 15:20 Drug: Rocephin (cefTRIAXone) 1 grams Route: IV; Rate: calculated rate; Site: right [address]; 15:31 Drug: vancoMYCIN 250 mg Route: PO; [facility] er 16:42 Follow up: Response: No adverse reaction tw2 15:32 Drug: NS 0.9% (30 ml/kg) 30 ml/kg Route: IV; Rate: bolus; Site: right upper arm; [facility] er 15:50 Drug: NS 0.9% (30 ml/kg) 30 ml/kg Route: IV; Rate: bolus; Site: right upper arm; [facility] er Disposition Summary: 08/15/21 15:55 Hospitalization Ordered Hospitalization Status: Inpatient Admission [facility] Provider: Gokul Wilson [facility] Location: Telemetry/MedSurg (observation) ma2 Condition: Stable ma2 Problem: new ma2 Symptoms: are unchanged ks2 Bed/Room Type: Standard [facility] Room Assignment: 429(08/15/21 19:52) cg Diagnosis - Dehydration - With LILLIAM ma2 - Diarrhea, unspecified ma Forms: - Medication Reconciliation Form ks2 - SBAR form ks2 Signatures: Dispatcher [employer] Crystal Luevano RN RN cg Kimber Williamson RN RN 2 Tori Mansfield MD MD [facility] Beverly Brenner RN RN jh6 Corrections: (The following items were deleted from the chart) 16:05 14:04 Abdomen Pelvis W Con+CT.RAD.BRZ ordered. EDMS EDMS 16:42 14:03 Accucheck ordered. ma2 tw2 19:52 15:55 maAria cg
--- NOTE | 2021-08-15 15:56 | ER ---
Nurse's Notes [facility] Name: Kati Morin Age: 70 yrs Sex: Female : 1950 Arrival Date: 08/15/2021 Time: 13:36 Bed 8 Private MD: Diagnosis: Dehydration-With LILLIAM;Diarrhea, unspecified Presentation: 08/15 13:36 Chief complaint: EMS states: pt from home with home health nurse stating low blood tw2 pressure in 80's systolic. we got 84/50. HR 80's. 95%RA. pt was discharge home from here with severe sepsis from UTI. pt had a right femoral line and has a very large hematoma still from that procedure. pts spouse c/o diarrhea. 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 Coronavirus screen: At this time, the client does not indicate any symptoms associated with coronavirus-19. Ebola Screen: Patient denies travel to an Ebola-affected area in the 21 days before illness onset. Initial Sepsis Screen: Does the patient meet any 2 criteria? No. Patient's initial sepsis screen is negative. Does the patient have a suspected source of infection? No. Patient's initial sepsis screen is negative. Risk Assessment: Do you want to hurt yourself or someone else? Patient reports no desire to harm self or others. Onset of symptoms was August 15, 2021. 13:36 Method Of Arrival: EMS: [facility] tw2 13:36 Acuity: KATE 2 tw2 Triage Assessment: 13:36 General: Appears in no apparent distress. obese, Behavior is calm, cooperative, tw2 appropriate for age. Pain: Complains of pain in right lower quadrant. Neuro: Level of Consciousness is awake, alert, obeys commands, Oriented to person, place, time, situation. Cardiovascular: Patient's skin is warm and dry. Respiratory: Airway is patent Respiratory effort is even, unlabored, Respiratory pattern is regular, symmetrical. GI: Reports lower abdominal pain, diarrhea. : No signs and/or symptoms were reported regarding the genitourinary system. Derm: hematoma to right femoral area the size of a small cantaloupe. no bleeding noted. EMS states it is from when she was hospitalized last time. pt states "there is still 2 sutures in there to help". Musculoskeletal: Reports "i do not walk". Historical: - Allergies: 13:46 Codeine; tw2 13:46 Fentanyl; tw2 13:46 Morphine; tw2 13:46 sulfamethoxazole-trimethoprim; tw2 - Home Meds: 13:46 Xarelto 10 mg Oral tab 1 tab once daily [Active]; losartan 100 mg Oral tab 1 tab once tw2 daily [Active]; Xanax 1 mg Oral tab 1 tab 3 times per day [Active]; sildenafil 20 mg Oral 1 tab TID [Active]; escitalopram oxalate 20 mg Oral tab 1 tab once daily [Active]; hydrocodone-acetaminophen 7.5-325 mg Oral tab 1 tab every 6 hours [Active]; chlorzoxazone 500 mg Oral tab [Active]; aripiprazole 5 mg Oral tab 0.5 tab once daily [Active]; acebutolol 400 mg Oral cap 1 cap 2 times per day [Active]; - PMHx: 13:46 Anxiety; pulmonary HTN; Atrial Fib; Hypertension; Rheumatoid Arthritis; tw2 - Immunization history:: Adult Immunizations. - Social history:: Smoking status: . - Family history:: not pertinent. Screenin:50 Abuse screen: Denies threats or abuse. Nutritional screening: No deficits noted. tw2 Tuberculosis screening: No symptoms or risk factors identified. Fall Risk Gait- Weak (10 pts.). Assessment: 13:50 Reassessment: see triage assessment. tw2 15:28 Reassessment: Patient appears in no apparent distress at this time. No changes from tw2 previously documented assessment. Patient and/or family updated on plan of care and expected duration. Pain level reassessed. 15:28 Reassessment: pt clean of a very louse and foul smelling stool at this time. unable to tw2 collect sample and it had collected in the absorbent pads under her. 16:41 Reassessment: Patient appears in no apparent distress at this time. No changes from tw2 previously documented assessment. Patient and/or family updated on plan of care and expected duration. Pain level reassessed. 18:04 Reassessment: Patient appears in no apparent distress at this time. No changes from tw2 previously documented assessment. Patient and/or family updated on plan of care and expected duration. Pain level reassessed. 20:24 GI: Bowel sounds present X 4 quads. Abd is soft and non tender X [address] Vital Signs: 13:36 BP 93 / 52; Pulse 81; Resp 17; Temp 97.9(TE); Pulse Ox 96% on R/A; Weight 99.79 kg (R); tw2 14:04 BP 83 / 47; Pulse 87; Resp 17; Pulse Ox 96% on R/A; tw2 15:27 BP 89 / 54; Pulse 83; Resp 17; Pulse Ox 96% on R/A; tw2 16:36 BP 105 / 56; Pulse 88; Resp 18; Pulse Ox 97% ; jh6 18:04 BP 83 / 60; Pulse 89; Resp 17; Pulse Ox 97% on R/A; tw2 20:25 BP 88 / 54; Pulse 81; Resp 16; Pulse Ox 96% on R/A; st1 14:04 provider notified. tw2 ED Course: 13:36 Patient arrived in ED. tw2 13:36 Bed in low position. Call light in reach. Side rails up X2. Pulse ox on. NIBP on. Warm tw2 blanket given. 13:46 Triage completed. tw2 13:50 Arm band placed on. tw2 13:51 Kimber Williamson, CLEMENTINA is Primary Nurse. tw2 13:58 Tori Mansfield MD is Attending Physician. ma2 14:24 Chest Single View XRAY In Process Unspecified. EDMS 15:00 Inserted saline lock: 18 gauge in right upper arm, using aseptic technique. Blood 6 collected. 15:29 Straight cath inserted, using sterile technique, 16 Fr. Specimen obtained. Eloise Green RN tw2 served as fish checker and assisted w/px Returned rachelle urine. Patient tolerated well. 15:55 Gokul Wilson is Hospitalizing Provider. ma2 16:20 Abdomen In Process Unspecified. EDMS 16:56 COVID-19 SARS RT PCR (Document "Date of Onset" if Symptomatic) Sent. tw2 19:02 Primary Nurse role handed off by Kimber Williamson RN mw2 20:24 No provider procedures requiring assistance completed. Inserted st1 20:25 Patient admitted, IV remains in place. st1 Administered Medications: 15:20 Drug: Rocephin (cefTRIAXone) 1 grams Route: IV; Rate: calculated rate; Site: right [facility] upper arm; 15:31 Drug: vancoMYCIN 250 mg Route: PO; jh6 16:42 Follow up: Response: No adverse reaction tw2 15:32 Drug: NS 0.9% (30 ml/kg) 30 ml/kg Route: IV; Rate: bolus; Site: right upper arm; 6 15:50 Drug: NS 0.9% (30 ml/kg) 30 ml/kg Route: IV; Rate: bolus; Site: right upper arm; 6 Outcome: 15:55 Decision to Hospitalize by Provider. ma2 20:25 Admitted to Med/surg accompanied by tech, via stretcher, room 429, with chart, Report st1 called to CLEMENTINA Tabares 20:25 Condition: good 20:25 Instructed on the need for admit. 20:51 Patient left the ED. as6 Signatures: Dispatcher [employer] EDKimber Cooley RN RN tw2 Tori Mansfield MD MD ma2 Derek Lorenz 2 Donte Trujillo RN RN as6 Beverly Brenner RN RN jh6 Candelaria Perez RN RN st1
--- NOTE | 2021-08-15 16:26 | RAD REPORT ---
EXAM DESCRIPTION: CT - Abdomen Pelvis Wo Contrast - 08/15/2021 4:20 pm CLINICAL HISTORY: Abdominal pain. ABD PAIN COMPARISON: Abdomen Pelvis Wo Contrast dated 07/24/2021 TECHNIQUE: CT imaging of the abdomen and pelvis was performed without contrast. Solid organ, bowel a nd vascular assessment is limited due to lack of IV and oral contrast. All CT scans are performed using dose optimization technique as appropriate and may include automated exposure control or mA/KV adjustment according to patient size. FINDINGS: The lower lung ward are clear. The liver, spleen, pancreas, adrenal glands and kidneys are within normal limits for a limited non-co ntrast examination. No bowel obstruction, free air, free fluid or abscess. There is a diffuse mucosal thickening involvi ng the entire colon compatible with a nonspecific colitis. Large 16 x 8 cm right groin hematoma again seen. IMPRESSION: [id number] diffuse pancolitis pattern is present. A limited non-contrast examination was performed as detailed.
--- NOTE | 2021-08-15 18:13 | P.HP ---
Certification for Inpatient Patient admitted to: Inpatient With expected LOS: >2 Midnights Practitioner: I am a practitioner with admitting privileges, knowledge of patient current condition, hospital course, and medical plan of care. Services: Services provided to patient in accordance with Admission requirements found in Title 42 Section 412.3 of the Code of Federal Regulations Patient History Date of Service: 08/15/21 Reason for admission: Frequent diarrhea History of Present Illness: 70-year-old woman with a history of rheumatoid arthritis, hypertension, chronic atrial fibrillation, recurrent UTI, recently hospitalized for septic shock, diagnosed with C. difficile colitis previous hospitalization was brought to the emergency department accompanied by the with a complaint of watery diarrhea. According to the spouse patient completed oral vancomycin for the C. difficile. He stated patient's stool was of soft consistency though frequent initially after discharge from hospital but over the last couple of days patient has been experiencing frequent watery diarrhea. He was concerned of C. difficile relapse. He therefore brought her to the emergency department for evaluation. Apparently her PCP gave her another refill for oral vancomycin but they have not been able to fill it in any pharmacy around. In the ED patient noted to be sallow appearing, systolic blood pressure in the 80s. Patient was given IV normal saline, IV Rocephin and oral vancomycin. Stool for C. difficile is pending. UA is negative for UTI. No leukocytosis. Patient is admitted for further management. Allergies codeine Allergy (Verified 09/18/19 21:40) Itching fentanyl Allergy (Verified 05/22/21 18:09) Hives/Rash morphine Allergy (Verified 05/10/20 14:39) Hives/Rash sulfamethoxazole [From Bactrim] Allergy (Verified 09/18/19 21:40) Hives/Rash trimethoprim [From Bactrim] Allergy (Verified 09/18/19 21:40) Hives/Rash Home Medications: ALPRAZolam [Xanax*] 1 mg PO TID 07/23/21 Acebutolol HCl 400 mg PO BID 07/23/21 Acetaminophen [Tylenol] 325 mg PO TID 07/23/21 Hydrocodone Bit/Acetaminophen [Hydrocodon-Acetaminoph 7.5-325] 1 each PO TID 07/23/21 Losartan Potassium [Cozaar] 100 mg PO DAILY 07/23/21 Sildenafil Citrate [Revatio*] 20 mg PO TID 07/23/21 Ensure High Protein 237 ml PO BID #60 can 08/01/21 Furosemide [Lasix*] 40 mg PO DAILY #30 tab 08/01/21 Lactobacillus Acidophilus [Acidophilus Probiotic] 1 each PO TID #90 capsule 08/01/21 Vancomycin Oral Soln [Vancocin HCl*] 5 ml PO Q6HR #150 ml 08/01/21 - Past Medical/Surgical History Diabetic: No -: Pulmonary hypertension -: Atrial fibrillation -: debility -: anxiety -: chronic pain -: hypertension -: rheumatoid arthritis -: obesity -: CHF -: L shoulder august 2019 -: hysterectomy -: Right shoulder injury -: Fx left elbow with surgery - Family History Family History: Reviewed- Non-Contributory - Social History Alcohol use: No CD- Drugs: No Caffeine use: No Review of Systems Other: Patient denies any abdominal pain, no significant fever. She vomited once in the emergency department. Except as documented, all other systems reviewed and negative. Physical Examination - Physical Exam General: Alert, In no apparent distress, Obese, Other (Sick appearing) HEENT: PERRLA, Mucous membr. moist/pink, Scleral icterus Neck: Supple, JVD not distended Respiratory: Clear to auscultation bilaterally, Normal air movement Cardiovascular: Regular rate/rhythm, Normal S1 S2, Edema (Bilateral lower extremities) Capillary refill: <2 Seconds Gastrointestinal: Normal bowel sounds, Soft and benign, Non-distended, No tenderness Musculoskeletal: No tenderness, Swelling (Bilateral legs) Integumentary: No rashes, No cyanosis, Other (Jaundiced skin) Neurological: Other (Globally weak, moves all extremities.) - Studies Laboratory Data (last 24 hrs) 08/15/21 14:35: PT 23.3 H, INR 2.01, APTT 42.1 H 08/15/21 14:35: WBC 9.40, Hgb 9.9 L, Hct 31.4 L, Plt Count 265 08/15/21 14:35: Sodium 140, Potassium 3.5, BUN 54 H, Creatinine 1.65 H, Glucose 99, Total Bilirubin 2.5 H, AST 19, ALT 13, Alkaline Phosphatase 186 H, Amylase 20 L, Lipase 22 L Assessment and Plan - Problems (Diagnosis) (1) C. difficile colitis Current Visit: Yes Status: Acute (2) Chronic diastolic heart failure Current Visit: Yes Status: Acute (3) Anasarca Current Visit: No Status: Acute (4) Hematoma Current Visit: No Status: Acute (5) Hypovolemic shock Current Visit: No Status: Acute (6) Atrial fibrillation Current Visit: No Status: Chronic Qualifiers: Atrial fibrillation type: unspecified chronic Qualified Code(s): I48.20 - Chronic atrial fibrillation, unspecified; I48.2 - Chronic atrial fibrillation (7) Pulmonary hypertension Current Visit: No Status: Chronic (8) Hyperbilirubinemia Current Visit: Yes Status: Acute - Plan Admit patient to the medical floor. Hydrate with normal saline given hypotension and diarrhea. Low blood pressure likely secondary to hypovolemic shock. Patient with a history of intermittent hypotension. Will consider oral midodrine as needed. Hold antihypertensives. Follow cultures obtained in the ED. UA is negative for UTI Stool for C. difficile is pending. Oral vancomycin for C. difficile. We will avoid other antibiotics for now given active C. difficile. PT consult. Hyperbilirubinemia of unknown cause. I suspect hepatic congestion from pulmonary hypertension. Plan of care discussed with the spouse. - Advance Directives Does patient have a Living Will: No Does patient have a Durable POA for Healthcare: No
[2021-08-15] MEDS ORDERED: ONDANSETRON 4 MG/2 ML VIAL IV PRN (20:58)
[2021-08-15] MEDS ORDERED: MIDODRINE HCL 5 MG TABLET PO PRN (20:58)
[2021-08-15] MEDS: VANCOMYCIN ORAL SOLN 250 MG/5 ML OSYR PO SCH (20:58)
[2021-08-15] MEDS: NA CHLORIDE 0.9% 1,000 ML IV SCH (21:51)
[2021-08-15] MEDS ORDERED: WATER FOR INJ,STERILE 10 ML ONE (22:34)
[2021-08-15] MEDS ORDERED: VANCOMYCIN 500 MG/VIAL ONE (22:34)
[2021-08-16] MEDS: HEPARIN 5000 UNIT/ML 1 ML VIAL SQ SCH ×3 (01:00→17:19)
[2021-08-16 01:27] VITALS: BMI 43.0
[2021-08-16 03:43] LABS: Protime INR 2.01
[2021-08-16 03:45] LABS: Absolute Lymphocytes (CBC) 0.9 K/uL (0.7-4.9); Lymphocytes % 8.9 % (15.3-44.8); MPV 7.9 fL (7.6-11.3); RBC Red Blood Cell Count 3.05 M/uL (3.86-4.86)
[2021-08-16 04:14] LABS: Albumin 2.5 g/dL (3.4-5.0); Bilirubin Total 1.9 mg/dL (0.2-1.0); Magnesium 1.9 mg/dL (1.8-2.4); Phosphorus 4.1 mg/dL (2.5-4.9); Potassium 3.2 mmol/L (3.5-5.1); Protein, Total 5.7 g/dL (6.4-8.2)
[2021-08-16] MEDS: VANCOMYCIN ORAL SOLN 250 MG/5 ML OSYR PO SCH ×4 (05:00→17:19)
[2021-08-16] MEDS ORDERED: POTASSIUM CL SA 10 MEQ TAB PO ONE ×2 (05:09→05:16)
[2021-08-16] MEDS: NA CHLORIDE 0.9% 1,000 ML IV SCH ×2 (08:49→23:38)
--- NOTE | 2021-08-16 16:15 | P.PN ---
Subjective Date of Service: 08/16/21 Chief Complaint: Frequent diarrhea Patient apparently had only 1 bowel movement last night. C. difficile testing canceled because the stool was formed. Blood pressure still borderline low. Physical Examination - Vital Signs Temperature: 98.6 F Blood Pressure: 91/48 Pulse: 69 Respirations: 20 Pulse Ox (%): 96 - Studies Microbiology Data (last 24 hrs): 08/15/21 14:15 Blood - Blood Blood Culture Gram Stain - Final Assessment And Plan - Current Problems (Diagnosis) (1) C. difficile colitis Current Visit: Yes Status: Acute (2) Chronic diastolic heart failure Current Visit: Yes Status: Acute (3) Anasarca Current Visit: No Status: Acute (4) Hematoma Current Visit: No Status: Acute (5) Hypovolemic shock Current Visit: No Status: Acute (6) Atrial fibrillation Current Visit: No Status: Chronic Qualifiers: Atrial fibrillation type: unspecified chronic Qualified Code(s): I48.20 - Chronic atrial fibrillation, unspecified; I48.2 - Chronic atrial fibrillation (7) Pulmonary hypertension Current Visit: No Status: Chronic (8) Hyperbilirubinemia Current Visit: Yes Status: Acute - Plan Physical Exam General: Alert, In no apparent distress, Obese, Sick appearing HEENT: PERRLA, Mucous membr. moist/pink, Scleral icterus Neck: Supple, JVD not distended Respiratory: Clear to auscultation bilaterally, Normal air movement Cardiovascular: Regular rate/rhythm, Normal S1 S2, Bilateral lower extremity edema Gastrointestinal: Normal bowel sounds, Soft and benign, Non-distended, No tenderness Musculoskeletal: No tenderness, bilateral leg swelling Integumentary: No rashes, No cyanosis, Jaundiced skin Neurological: Globally weak, moves all extremities. Continue IV hydration with normal saline given hypotension and diarrhea. Low blood pressure likely secondary to hypovolemic shock. Patient with a history of intermittent hypotension. Will consider oral midodrine as needed. Hold antihypertensives. Blood cultures: No growth to date UA is negative for UTI Oral vancomycin for C. difficile given recent C. difficile infection and diarrhea. We will avoid other antibiotics for now given history of C. difficile. PT. Hyperbilirubinemia of unknown cause. I suspect hepatic congestion from pulmonary hypertension.
[2021-08-16] MEDS: ALPRAZOLAM 1 MG TABLET PO PRN (20:57)
[2021-08-17] MEDS: VANCOMYCIN ORAL SOLN 250 MG/5 ML OSYR PO SCH ×5 (00:04→23:41)
[2021-08-17] MEDS: HEPARIN 5000 UNIT/ML 1 ML VIAL SQ SCH ×3 (00:05→17:04)
[2021-08-17] MEDS: ALPRAZOLAM 1 MG TABLET PO PRN (04:26)
[2021-08-17 09:21] LABS: Protime INR 1.21
[2021-08-17 09:23] LABS: Albumin 2.9 g/dL (3.4-5.0); Bilirubin Total 1.3 mg/dL (0.2-1.0); Potassium 3.2 mmol/L (3.5-5.1); Protein, Total 6.7 g/dL (6.4-8.2)
[2021-08-17 10:04] LABS: Absolute Lymphocytes (CBC) 1.2 K/uL (0.7-4.9); Hematocrit 35.4 % (36.0-45.0); Lymphocytes % 9.1 % (15.3-44.8); MPV 8.3 fL (7.6-11.3); RBC Red Blood Cell Count 3.87 M/uL (3.86-4.86)
[2021-08-17] MEDS: NA CHLORIDE 0.9% 1,000 ML IV SCH (13:04)
[2021-08-17 13:34] LABS: Platelet Estimate ADEQ; White Blood Cell Scan OK (OK)
[2021-08-17 13:43] LABS: Blood Morphology Comment NOTED (NOT SEEN)
[2021-08-17 13:44] LABS: Anisocytosis SLIGHT; Hypochromasia 1+; Poikilocytosis SLIGHT
[2021-08-17] MEDS ORDERED: POTASSIUM CL SA 10 MEQ TAB PO ONE (15:18)
--- NOTE | 2021-08-17 16:32 | P.PN ---
Subjective Date of Service: 08/17/21 Chief Complaint: Frequent diarrhea Nursing staff reports frequent diarrhea last night. Blood pressure readings have improved. Physical Examination - Vital Signs Temperature: 99.6 F Blood Pressure: 120/58 Pulse: 87 Respirations: 16 Pulse Ox (%): 96 - Studies Microbiology Data (last 24 hrs): 08/15/21 14:15 Blood - Blood Blood Culture Gram Stain - Final Assessment And Plan - Current Problems (Diagnosis) (1) C. difficile colitis Current Visit: Yes Status: Acute (2) Chronic diastolic heart failure Current Visit: Yes Status: Acute (3) Anasarca Current Visit: No Status: Acute (4) Hematoma Current Visit: No Status: Acute (5) Hypovolemic shock Current Visit: No Status: Acute (6) Atrial fibrillation Current Visit: No Status: Chronic Qualifiers: Atrial fibrillation type: unspecified chronic Qualified Code(s): I48.20 - Chronic atrial fibrillation, unspecified; I48.2 - Chronic atrial fibrillation (7) Pulmonary hypertension Current Visit: No Status: Chronic (8) Hyperbilirubinemia Current Visit: Yes Status: Acute - Plan Physical Exam General: Alert, In no apparent distress, Obese, Sick appearing HEENT: PERRLA, Mucous membr. moist/pink, Scleral icterus Neck: Supple, JVD not distended Respiratory: Clear to auscultation bilaterally, Normal air movement Cardiovascular: Regular rate/rhythm, Normal S1 S2, Bilateral lower extremity edema Gastrointestinal: Normal bowel sounds, Soft and benign, Non-distended, No tenderness Musculoskeletal: No tenderness, bilateral leg swelling Integumentary: No rashes, No cyanosis, Jaundiced skin Neurological: Globally weak, moves all extremities. Plan: Blood pressure readings have improved. Continue IV hydration. Oral midodrine as needed for hypotension. Antihypertensives on hold. Blood cultures: No growth to date UA is negative for UTI. Repeat stool for C. difficile due to persistent diarrhea. Oral vancomycin for C. difficile given recent C. difficile infection and diarrhea. We will avoid other antibiotics for now given history of C. difficile. Continue PT. Hyperbilirubinemia of unknown cause. I suspect hepatic congestion from pulmonary hypertension.
[2021-08-18] MEDS: HEPARIN 5000 UNIT/ML 1 ML VIAL SQ SCH ×3 (01:37→16:22)
[2021-08-18] MEDS: NA CHLORIDE 0.9% 1,000 ML IV SCH (02:18)
[2021-08-18] MEDS: VANCOMYCIN ORAL SOLN 250 MG/5 ML OSYR PO SCH ×3 (05:43→17:19)
[2021-08-18 06:16] LABS: Absolute Lymphocytes (CBC) 1.3 K/uL (0.7-4.9); Hematocrit 28.9 % (36.0-45.0); Lymphocytes % 11.3 % (15.3-44.8); MPV 7.8 fL (7.6-11.3); RBC Red Blood Cell Count 3.24 M/uL (3.86-4.86)
[2021-08-18 06:23] LABS: Protime INR 1.21
[2021-08-18 06:30] LABS: Potassium 3.3 mmol/L (3.5-5.1)
[2021-08-18] MEDS ORDERED: POTASSIUM CL SA 10 MEQ TAB PO ONE ×3 (06:36→16:00)
[2021-08-18] MEDS: ALPRAZOLAM 1 MG TABLET PO PRN (07:36)
[2021-08-18] MEDS: ACETAMINOPHEN 500 MG TAB PO PRN (12:42)
[2021-08-18] MEDS ORDERED: LIDOCAINE 1% MPF 30 ML VIAL SQ ONE (13:00)
[2021-08-18] MEDS ORDERED: FUROSEMIDE 40 MG TABLET PO ONE (19:46)
--- NOTE | 2021-08-18 19:46 | P.PN ---
Subjective Date of Service: 08/18/21 Chief Complaint: Frequent diarrhea Nursing staff reports frequent diarrhea last night. Only 1 bowel movement last night. Patient developed a skin tear on the right calf today. Physical Examination - Vital Signs Temperature: 98.8 F Blood Pressure: 142/76 Pulse: 89 Respirations: 18 Pulse Ox (%): 91 Assessment And Plan - Current Problems (Diagnosis) (1) C. difficile colitis Current Visit: Yes Status: Acute (2) Chronic diastolic heart failure Current Visit: Yes Status: Acute (3) Anasarca Current Visit: No Status: Acute (4) Hematoma Current Visit: No Status: Acute (5) Hypovolemic shock Current Visit: No Status: Acute (6) Atrial fibrillation Current Visit: No Status: Chronic Qualifiers: Atrial fibrillation type: unspecified chronic Qualified Code(s): I48.20 - Chronic atrial fibrillation, unspecified; I48.2 - Chronic atrial fibrillation (7) Pulmonary hypertension Current Visit: No Status: Chronic (8) Hyperbilirubinemia Current Visit: Yes Status: Acute - Plan Physical Exam General: Alert, In no apparent distress, Obese, Sick appearing HEENT: PERRLA, Mucous membr. moist/pink, Scleral icterus Neck: Supple, JVD not distended Respiratory: Clear to auscultation bilaterally, Normal air movement Cardiovascular: Regular rate/rhythm, Normal S1 S2, Bilateral lower extremity edema Gastrointestinal: Normal bowel sounds, Soft and benign, Non-distended, No tenderness Musculoskeletal: No tenderness, bilateral leg swelling Integumentary: No rashes, No cyanosis, deep skin tear on the right calf Neurological: Globally weak, moves all extremities. Plan: Blood pressure readings have improved. Discontinue IV fluid. Resume Lasix for edema. Oral midodrine as needed for hypotension. Resume Lasix. Antihypertensives on hold. Blood cultures: No growth to date UA is negative for UTI. Continue oral vancomycin for C. difficile given recent C. difficile infection and diarrhea. We will avoid other antibiotics for now given history of C. difficile. Continue PT. Hyperbilirubinemia of unknown cause. I suspect hepatic congestion from pulmonary hypertension. Suture deep skin tear on the right calf.
[2021-08-18] MEDS: SILDENAFIL CITRATE 20 MG TABLET PO SCH (21:00)
[2021-08-18] MEDS: CHLORZOXAZONE 500 MG PO SCH (21:00)
[2021-08-18] MEDS: HYDROCODONE/APAP 7.5/325 MG TAB PO SCH (21:43)
[2021-08-18] MEDS: ALPRAZOLAM 1 MG TABLET PO SCH (21:44)
[2021-08-19] MEDS: VANCOMYCIN ORAL SOLN 250 MG/5 ML OSYR PO SCH ×3 (00:15→12:37)
[2021-08-19] MEDS: HEPARIN 5000 UNIT/ML 1 ML VIAL SQ SCH ×2 (00:16→08:24)
[2021-08-19] MEDS: ACETAMINOPHEN 500 MG TAB PO PRN (03:32)
[2021-08-19 06:30] LABS: Potassium 3.6 mmol/L (3.5-5.1)
[2021-08-19] MEDS: HYDROCODONE/APAP 7.5/325 MG TAB PO SCH ×2 (08:23→13:08)
[2021-08-19] MEDS: ALPRAZOLAM 1 MG TABLET PO SCH ×2 (08:23→13:08)
[2021-08-19] MEDS: CHLORZOXAZONE 500 MG PO SCH (08:33)
[2021-08-19 08:40] VITALS: O2SAT 98
[2021-08-19] MEDS: SILDENAFIL CITRATE 20 MG TABLET PO SCH ×2 (09:26→13:09)
[2021-08-19 12:23] VITALS: BP 142/63; TEMP 97.8
[2021-08-19] MEDS ORDERED: RIVAROXABAN 10 MG TABLET PO SCH (13:00)
--- NOTE | 2021-08-19 13:43 | P.DS ---
Admission Date: 08/15/21 Discharge Date: 08/19/21 Disposition: DC HOME/HOME HEALTH CARE Discharge Condition: FAIR Reason for Admission: Frequent diarrhea - Problems (1) C. difficile colitis Current Visit: Yes Status: Acute (2) Chronic diastolic heart failure Current Visit: Yes Status: Acute (3) Anasarca Current Visit: No Status: Acute (4) Hematoma Current Visit: No Status: Acute (5) Hypovolemic shock Current Visit: No Status: Acute (6) Atrial fibrillation Current Visit: No Status: Chronic Qualifiers: Atrial fibrillation type: unspecified chronic Qualified Code(s): I48.20 - Chronic atrial fibrillation, unspecified; I48.2 - Chronic atrial fibrillation (7) Pulmonary hypertension Current Visit: No Status: Chronic (8) Hyperbilirubinemia Current Visit: Yes Status: Acute Brief History of Present Illness: 70-year-old woman with a history of rheumatoid arthritis, hypertension, chronic atrial fibrillation, recurrent UTI, recently hospitalized for septic shock, diagnosed with C. difficile colitis previous hospitalization was brought to the emergency department accompanied by the with a complaint of watery diarrhea. According to the spouse patient completed oral vancomycin for the C. difficile. He stated patient's stool was of soft consistency though frequent initially after discharge from hospital but over the last couple of days patient has been experiencing frequent watery diarrhea. He was concerned of C. difficile relapse. He therefore brought her to the emergency department for evaluation. Apparently her PCP gave her another refill for oral vancomycin but they have not been able to fill it in any pharmacy around. In the ED patient noted to be sallow appearing, systolic blood pressure in the 80s. Patient was given IV normal saline, IV Rocephin and oral vancomycin. Stool for C. difficile is pending. UA is negative for UTI. No leukocytosis. Patient admitted for further management. Hospital Course: Patient admitted to the medical floor and started on treatment for C. difficile colitis with oral vancomycin. She was also hydrated with IV fluids for hypotension. Blood pressure readings improved. IV fluid discontinued. Patient developed increased lower extremity edema which was treated with Lasix. She was placed on oral midodrine as needed for hypotension. Antihypertensives were held due to hypotension. Blood cultures: No growth to date UA is negative for UTI. Hyperbilirubinemia of unknown cause. I suspect hepatic congestion from pulmonary hypertension. Patient developed a skin tear on the right calf which was sutured. Patient condition is stabilized, diarrhea frequency has decreased, she is bedridden at baseline. She is discharged to follow-up with her PCP. She may need sutures removed within 1 week. Vital Signs/Physical Exam: Temp Pulse Resp BP Pulse Ox 97.8 F 84 18 142/63 H 94 08/19/21 12:00 08/19/21 12:00 08/19/21 13:08 08/19/21 12:00 08/19/21 13:08 General: Alert, In no apparent distress Neck: JVD not distended Respiratory: Clear to auscultation bilaterally, Normal air movement Cardiovascular: Normal S1 S2, No murmurs, Edema (Bilateral leg) Gastrointestinal: Soft and benign, Non-distended Musculoskeletal: Swelling (Bilateral legs) Integumentary: Other (Sutured laceration on the right calf.) Neurological: Other (No focal motor deficit) Laboratory Data at Discharge: WBC 11.50 K/uL (4.3-10.9) H D 08/18/21 05:24 Hgb 9.4 g/dL (12.0-15.0) L 08/18/21 05:24 Hct 28.9 % (36.0-45.0) L D 08/18/21 05:24 Plt Count 274 K/uL (152-406) 08/18/21 05:24 PT 13.9 SECONDS (9.5-12.5) H 08/18/21 05:24 INR 1.21 08/18/21 05:24 APTT 42.1 SECONDS (24.3-36.9) H 08/15/21 14:35 Sodium 139 mmol/L (136-145) 08/19/21 05:59 Potassium 3.6 mmol/L (3.5-5.1) 08/19/21 05:59 BUN 31 mg/dL (7-18) H 08/19/21 05:59 Creatinine 0.84 mg/dL (0.55-1.3) 08/19/21 05:59 Glucose 110 mg/dL (74-106) H 08/19/21 05:59 Phosphorus 4.1 mg/dL (2.5-4.9) 08/16/21 03:18 Magnesium 1.9 mg/dL (1.8-2.4) 08/16/21 03:18 Total Bilirubin 1.3 mg/dL (0.2-1.0) H 08/17/21 08:45 AST 18 U/L (15-37) 08/17/21 08:45 ALT 13 U/L (12-78) 08/17/21 08:45 Alkaline Phosphatase 175 U/L (45-117) H 08/17/21 08:45 Amylase 20 U/L (25-115) L 08/15/21 14:35 Lipase 22 U/L (73-393) L 08/15/21 14:35 Home Medications: Acetaminophen 1 tab PO TID 08/16/21 Alprazolam [Xanax] 1 mg PO TID 08/16/21 Chlorzoxazone 1 tab PO BID 08/16/21 Hydrocodone 7.5/APAP 325 [[place] 7.5/325 mg*] 1 tab PO TID 08/16/21 Rivaroxaban [Xarelto*] 1 tab PO DAILY 08/16/21 Sildenafil Citrate 1 tab PO TID 08/16/21 Furosemide [Lasix] 20 mg PO DAILY #7 tab 08/19/21 Vancomycin Oral Soln [Vancocin HCl*] 5 ml PO Q6HR #100 ml 08/19/21 New Medications: Vancomycin Oral Soln [Vancocin HCl*] 5 ml PO Q6HR #100 ml Furosemide [Lasix] 20 mg PO DAILY #7 tab Diet: AHA Activity: Fall precautions Followup: NONE,NONE [Primary Care Provider] - 1-2 Weeks Time spent managing pt's care (in minutes): 38
== END 2021-08-19 15:25 | disposition home health service (06) | DRG 371 ==
LOC: ER 13:30 → ERHOLD 17:08 → 4TH 20:10
PROVIDERS: ADMIT Internal Medicine; ATTEND Internal Medicine
PROC: 0JQQ3ZZ Repair Right Foot Subcutaneous Tissue and Fascia, Percutaneous Approach (ICD-10-PCS; principal; 2021-08-18)
DX: A04.71 Enterocolitis due to Clostridium difficile, recurrent (principal); R57.1 Hypovolemic shock; I48.20 Chronic atrial fibrillation, unspecified; I50.32 Chronic diastolic (congestive) heart failure; M06.9 Rheumatoid arthritis, unspecified; I11.0 Hypertensive heart disease with heart failure; I95.9 Hypotension, unspecified; I27.20 Pulmonary hypertension, unspecified; E80.6 Other disorders of bilirubin metabolism; R60.1 Generalized edema; S81.811A Laceration without foreign body, right lower leg, initial encounter; X58.XXXA Exposure to other specified factors, initial encounter; Y92.230 Patient room in hospital as the place of occurrence of the external cause; K76.1 Chronic passive congestion of liver; Z20.822 Contact with and (suspected) exposure to COVID-19
CPT/HCPCS: 36415; 51702; 71045; 74176; 80048; 80053; 80076; 81003; 81015; 82150; 82550; 82553; 83605; 83690; 83735; 84100; 84132; 84145; 84484; 85025; 85610; 85730; 86140; 87040; 87205; 93005; 96374; 96375; 97161; 99285; J1644; J7030; U0003

== ENCOUNTER 2021-08-23 15:17 | Inpatient (IN) | payer OTHER ==
--- OUTSIDE RECORDS SUMMARY | 2021-08-23 15:20 | XMS REPORT | Continuity of Care Document ---
:1950 Author Organization [facility] t Address [address] [place] [address] Care Team Providers Name Role Phone CANDIDA [...] Facility Department ID 2020-05-11 2020-05-11 Emergency ER [facility] Emergency [id number] [facility] 18:42:00 18:42:00 2020-04-04 2020-04-04 Orders Doctor STEVEN [id number] 00:00:00 00:00:00 Only Unassigned, UBALDO [id number] [place] [facility] [id number] 2019-02-04 2019-02-04 [facility] [id number] 09:34:48 23:59:00 Encounter Car [place] [id number] [place] [id number] [place] [id number] 2019-02-04 2019-02-04 Orders Doctor STEVEN [id number] 00:00:00 00:00:00 Only Unassigned, UBALDO [id number] [place] [facility] [id number] Results Test Description Test Time Test Comments Results Result Comments Source SARS-COV2/RT-PCR ([facility]) 2020-05-12 16:13:00 Test Item Value Reference Range Interpretation Comme nts SARS-COV2/RT-PCR (test code = 5600360) Negative Not Detected, N egative, See external report for linked test SARS-COV-2 PERFORMING LAB (test code = [facility] 8043069) Negative result for this test determines that [...] the Wilde SARS-CoV-2 assay.Fact Sheet for Healthcare Providers:https://www.Lob.wilde/laura/ TG_CZOK-SxV-3_OQT_Tppi_Kzgak_76-091462.pdfFact Sheet for Healthcare Patients:https://www.Lob.FoodyDirect zeinab/laura/DK_RDPZ-XtB-1_Ubjtftk_Ycpp_Gznwv_AN_68-827818Q2.pdfPerforming Laboratory:[address] [address]IDV W/PLT COUNT & AUTO [id number] 06:31:00 Test Item Value Reference Range Interpretation [...] (BEAKER) (test code = 2801) BLOOD GAS, [id number] 06:27:00 Test Item Value Reference Range Interpretation [...] (test code = 1819) 28.0 LACTIC ACID, [id number] 05:02:00 Test Item Value Reference Range Interpretation Comments LACTATE BLOOD VENOUS 0.94 mmol/L 0.50-2.20 Specime n markedly (2) (BEAKER) (test hemolyzed code = 2872) Chemist Steroids ID - PIAYA LRAD, CHEST, 1 VIEW, NON [id number] 04:10:00Reason for exam:->hypoxiaShould this be performed at the bedside?->Yes [facility] : 1950 Sex: [...] MDReport Verified Date/Time: 05/12/2020 04:10:32 BASIC METABOLIC [id number] 00:06:00 Test Item Value Reference Range Interpretation [...] S NOT APPLICABLE FOR DIALYSIS PATIEN TS. Chemist Steroids ID - PIAYA LPROTHROMBIN [id number] 23:58:00 Test Item Value Reference Range Interpretation [...] mechanical heart valves.CBC W/PLT COUNT & AUTO [id number] 23:52:00 Test Item Value Reference Range Interpretation [...] % 0-1 PERCENT (BEAKER) (test code = 6100)
[2021-08-23] MEDS ORDERED: NA CHLORIDE 0.9% 1,000 ML ONE ×2 (15:29→21:58)
[2021-08-23] MEDS ORDERED: LIDOCAINE 1% MPF 30 ML VIAL ONE (18:13)
--- NOTE | 2021-08-23 19:09 | RAD REPORT ---
EXAM DESCRIPTION: RAD - Chest Single View - 08/23/2021 5:45 pm CLINICAL HISTORY: post attempt rt side EJ COMPARISON: Portable August 15 TECHNIQUE: AP portable chest image was obtained 08/23/2021 5:45 pm . FINDINGS: No visible central line. There is no pneumothorax present. No focal lung parenchymal or pl eural process. Cardiomegaly present. IMPRESSION: No pneumothorax seen following unsuccessful right-sided central line placement.
--- NOTE | 2021-08-23 19:10 | RAD REPORT ---
EXAM DESCRIPTION: RAD - Chest Single View - 08/23/2021 6:57 pm CLINICAL HISTORY: line placement COMPARISON: Portable August 23 TECHNIQUE: AP portable chest image was obtained 08/23/2021 6:57 pm . FINDINGS: Right-sided jugular line placement shows tip in the mid SVC. No pneumothorax. No pleural fluid or acute lung parenchymal process. Cardiomegaly noted. IMPRESSION: Right jugular central line placement in good position. Tip is in the mid SVC. No pneumothorax.
--- NOTE | 2021-08-23 19:35 | RAD REPORT ---
EXAM DESCRIPTION: US - Extremity Venous Uni Ltd - 08/23/2021 7:22 pm CLINICAL HISTORY: groin swelling COMPARISON: April 2021 TECHNIQUE: Real-time sonographic evaluation of the right lower extremity deep venous systems was per formed. FINDINGS: Exam has significant limitations due to patient pain in soft tissue changes that limit vis ualization of the deep veins. No DVT identified in the common femoral vein. Proximal femoral vein was poorly visualized due to soft tissue hematoma and bandaging. More distally in the femoral vein no venous thrombosis identified. Th e popliteal and ankle veins are without identifiable deep venous thrombosis. There is a large 10-12 centimeter oval hypoechoic focus in the proximal right thigh. Full history is not available. This is most likely a liquified hematoma. No internal blood flow was demonstrated. Cor relation is needed with further clinical history. IMPRESSION: Limited exam without evidence for deep venous thrombosis in the right lower extremity.
--- NOTE | 2021-08-23 19:37 | RAD REPORT ---
EXAM DESCRIPTION: US - Lower Extremity Artery Uni Ltd - 08/23/2021 7:22 pm CLINICAL HISTORY: SWELLING COMPARISON: No comparisons TECHNIQUE: Doppler evaluation of the right lower extremity arterial tree performed. Waveforms and ve locity values were obtained along with visual inspection. FINDINGS: Exam have significant technical limitations due to patient pain, body habitus affects and large soft tissue finding in the thigh. Biphasic waveform pattern seen in the right common femoral artery as well is the mid to distal portio ns of the superficial femoral artery. Proximal femoral artery was too obscured for assessment. Biphas ic waveform pattern seen in the popliteal, dorsalis pedis and posterior tibial arteries. No occlusion or focal flow restricting lesion identified. IMPRESSION: Exam was limited due to what is believed to be an old liquefied hematoma in the thigh. P roximal superficial femoral artery was poorly visualized. No occlusion or focal flow restricting lesion identifiable in the right lower extremity.
[2021-08-23] MEDS ORDERED: NA CHLORIDE 0.9% 100 ML IV ONE (19:43)
[2021-08-23] MEDS ORDERED: CEFEPIME 2 GM VIAL ONE (19:43)
[2021-08-23 20:27] LABS: Lymphocytes % 6.3 % (15.3-44.8); MPV 7.4 fL (7.6-11.3); RBC Red Blood Cell Count 3.03 M/uL (3.86-4.86)
[2021-08-23 20:30] LABS: Protime INR 1.67
[2021-08-23 21:04] LABS: Potassium 3.3 mmol/L (3.5-5.1)
[2021-08-23 21:14] LABS: Albumin 2.4 g/dL (3.4-5.0); Bilirubin Direct 0.6 mg/dL (0-0.2); Magnesium 1.9 mg/dL (1.8-2.4); Protein, Total 6.1 g/dL (6.4-8.2); Troponin High Sensitivity 15.7 pg/mL (<58.9)
[2021-08-23 21:17] LABS: Anisocytosis 1+; Blood Morphology Comment NOTED (NOT SEEN); Platelet Estimate ADEQ; White Blood Cell Scan OK (OK)
--- NOTE | 2021-08-23 21:57 | EDPHYS ---
Physician Documentation [facility] Name: Kati Morin Age: 70 yrs Sex: Female : 1950 Arrival Date: 08/23/2021 Time: 15:18 Bed 2 Private MD: ED Physician Td Patricio HPI: 08/23 15:35 This 70 yrs old Female presents to ER via EMS with complaints of Right Groin Swelling. cp 15:35 The patient presents with hematoma. The complaints affect the right femoral area. cp Onset: The symptoms/episode began/occurred last month. 15:35 Associated signs and symptoms: Pertinent positives: swelling, warmth, Pertinent cp negatives fever. 15:35 reports patient developed right groin hematoma after hospitalization in June. Bleeding from area became uncontrollable today after he changed patient's underwear. reports right groin hematoma was observed during recent hospitalization and that he has been managing the open wound that developed at home. Historical: - Allergies: 15:33 Codeine; tw2 15:33 Fentanyl; tw2 15:33 Morphine; tw2 15:33 sulfamethoxazole-trimethoprim; tw2 - Home Meds: 15:33 acebutolol 400 mg Oral cap 1 cap 2 times per day [Active]; aripiprazole 5 mg Oral tab tw2 0.5 tab once daily [Active]; chlorzoxazone 500 mg Oral tab [Active]; escitalopram oxalate 20 mg Oral tab 1 tab once daily [Active]; hydrocodone-acetaminophen 7.5-325 mg Oral tab 1 tab every 6 hours [Active]; losartan 100 mg Oral tab 1 tab once daily [Active]; sildenafil 20 mg Oral 1 tab TID [Active]; Xanax 1 mg Oral tab 1 tab 3 times per day [Active]; Xarelto 10 mg Oral tab 1 tab once daily [Active]; - PMHx: 15:33 Anxiety; Atrial Fib; Hypertension; pulmonary HTN; Rheumatoid Arthritis; tw2 - Immunization history:: Adult Immunizations. - Social history:: Smoking status: . ROS: 15:40 Constitutional: Negative for body aches, chills, fever, poor PO intake. cp 15:40 ENT: Negative for drainage from ear(s), ear pain, sore throat, difficulty swallowing, cp difficulty handling secretions. 15:40 Cardiovascular: Positive for edema, Negative for chest pain. 15:40 Respiratory: Negative for cough, shortness of breath, wheezing. 15:40 Abdomen/GI: Negative for abdominal pain, nausea, vomiting, and diarrhea. 15:40 Back: Negative for pain at rest, pain with movement. 15:40 Skin: Positive for erythema, of the right femoral area, hematoma. 15:40 Neuro: Negative for altered mental status, dizziness, headache, syncope, weakness. 15:40 All other systems are negative. Exam: 15:45 Constitutional: The patient appears alert, awake, non-diaphoretic, non-toxic, well cp developed, well nourished, obese. 15:45 Head/Face: Normocephalic, atraumatic. cp 15:45 Eyes: Periorbital structures: appear normal, Conjunctiva: normal, no exudate, no injection, Sclera: no appreciated abnormality, Lids and lashes: appear normal, bilaterally. 15:45 ENT: External ear(s): are unremarkable, Nose: is normal, Mouth: Lips: moist, Oral mucosa: moist, Posterior pharynx: Airway: no evidence of obstruction, patent. 15:45 Chest/axilla: Inspection: normal, Palpation: is normal, no crepitus, no tenderness. 15:45 Cardiovascular: Rate: normal, Rhythm: regular, Edema: pedal edema, that is moderate, ankle edema, that is marked. 15:45 Respiratory: the patient does not display signs of respiratory distress, Respirations: labored breathing, is not present, shallow respirations, that is mild, Breath sounds: bronchial sounds, that are mild, are heard diffusely. 15:45 Abdomen/GI: Inspection: obese Bowel sounds: active, all quadrants, Palpation: abdomen is soft and non-tender, in all quadrants. 15:45 Back: pain, is absent, ROM is normal. 15:45 Musculoskeletal/extremity: Extremities: noted in the right femoral area: ecchymosis, large hematoma with active bleeding, Perfusion: the extremity is normally perfused throughout. 15:45 Neuro: Orientation: to person, place \\T\\ time. Mentation: is normal. Vital Signs: 15:30 BP 116 / 41; Pulse 90; Resp 12; Temp 98.3(TE); Pulse Ox 95% on R/A; tw2 15:31 BP 116 / 41; Pulse 96; Resp 18; Temp 98.3; Pulse Ox 94% on R/A; ph 17:42 BP 108 / 59; Pulse 79; Resp 20; Pulse Ox 96% on R/A; tw2 18:11 BP 102 / 65; Pulse 108; Resp 32; Pulse Ox 97% on R/A; tw2 19:51 BP 114 / 82; Pulse 97; Resp 18; Pulse Ox 98% on R/A; Pain 10/10; tw5 20:04 BP 102 / 60; Pulse 94; Resp 18; Pulse Ox 98% on R/A; tw5 20:37 BP 102 / 60; Pulse 97; Resp 20; Pulse Ox 96% on R/A; tw5 21:22 BP 100 / 36; Pulse 100; Resp 20; Pulse Ox 99% on R/A; ph 22:09 BP 114 / 78; Pulse 99; Resp 21; Pulse Ox 96% on R/A; tw5 03/04 00:33 BP 107 / 68; Pulse 98; Resp 17; Pulse Ox 96% on R/A; kd3 03 18:11 Dr. Kaufman and CLARICE Cantrell at bedside performing subclavian IV access at this time. tw2 MDM: 15:29 Patient medically screened. cp 16:45 Physician consultation: Samuel Kaufman MD was contacted at 16:35, regarding patient's cp condition, placement of subclavian line for intravenous access, and will see patient in ED. 08/23 15:31 Order name: Basic Metabolic Panel cp 08/23 15:31 Order name: CBC with Diff; Complete Time: 21:20 cp 08/23 20:35 Interpretation: Normal except: WBC 15.80; RBC 3.03; HGB 8.7; HCT 27.0; PLT 395; RDW cp 17.7; MPV 7.4; NATACHA% 85.0; LYM% 6.3; NEUT A 13.4. 08/23 15:31 Order name: LFT's; Complete Time: 21:16 cp 08/23 21:16 Interpretation: Normal except: AST 13; ALK 191; BILID 0.6; TP 6.1; ALB 2.4; GLOB 3.7; cp A/G 0.6. 08/23 15:31 Order name: Magnesium; Complete Time: 21:16 cp 08/23 15:31 Order name: NT PRO-BNP; Complete Time: 21:16 cp 08/23 21:16 Interpretation: Normal except: NT PRO-BNP 6950. cp 08/23 15:31 Order name: PT-INR; Complete Time: 20:35 cp 08/23 15:31 Order name: Troponin HS; Complete Time: 21:16 cp 08/23 15:31 Order name: Type And Screen cp 08/23 15:32 Order name: Basic Metabolic Panel; Complete Time: 21:16 EDMS 08/23 21:17 Interpretation: Normal except: K 3.3; BUN 32; GFR 71. cp 08/23 18:37 Order name: Type And Screen cp 08/23 19:38 Order name: PTT, Activated Partial Thromb; Complete Time: 20:35 EDMS 08/23 19:42 Order name: COVID-19 SARS RT PCR (Document "Date of Onset" if Symptomatic) tw5 08/23 15:31 Order name: EKG; Complete Time: 15:32 cp 08/23 15:31 Order name: Cardiac monitoring; Complete Time: 20:03 cp 08/23 15:38 Order name: US Lower Extremity Artery Uni Ltd; Complete Time: 20:35 cp 08/23 15:38 Order name: US Extremity Venous Unilateral Ltd; Complete Time: 20:35 cp 08/23 17:05 Order name: XRAY Chest (1 view); Complete Time: 20:35 cp 08/23 21:18 Interpretation: Report reviewed. cp 08/23 18:28 Order name: Chest Single View XRAY; Complete Time: 20:35 la1 08/23 21:17 Order name: CBC Smear Scan; Complete Time: 21:20 EDMS 08/23 21:50 Order name: Procalcitonin la1 08/23 21:50 Order name: Lactate la1 08/23 21:50 Order name: Blood Culture Adult (2) la1 08/23 21:50 Order name: Procalcitonin; Complete Time: 23:58 EDMS 08/23 21:50 Order name: Lactate; Complete Time: 23:58 EDMS 08/23 15:31 Order name: EKG - Nurse/Tech; Complete Time: 20:03 cp 08/23 15:31 Order name: Labs collected and sent; Complete Time: 20:03 cp 08/23 15:31 Order name: O2 Per Protocol; Complete Time: 20:03 cp 08/23 15:31 Order name: O2 Sat Monitoring; Complete Time: 20:03 cp Administered Medications: 20:02 Drug: Cefepime 2 grams Route: IVPB; Rate: 200 ml/hr; Infused Over: 30 mins; Site: right tw5 jugular; 20:38 Follow up: Response: No adverse reaction; IV Status: Completed infusion; IV Intake: tw5 100ml 23:03 Follow up: Response: No adverse reaction kd3 22:09 Not Given (Physician Discretion): vancoMYCIN 1 grams IVPB once over 2 hrs tw5 22:09 Not Given (Physician Discretion): NS 0.9% 1000 ml IV at 1000 ml once tw5 22:56 Drug: vancoMYCIN 125 mg Route: PO; kd3 08/24 00:34 Follow up: Response: No adverse reaction kd3 Disposition Summary: 08/23/21 21:56 Hospitalization Ordered Hospitalization Status: Inpatient Admission cp Provider: Prince jhonathan Davis Location: Telemetry/[facility] (Inpatient) cp Condition: Stable cp Problem: new cp Symptoms: have improved cp Bed/Room Type: Standard cp Room Assignment: 216(08/24/21 00:28) cg Diagnosis - Anemia, unspecified cp - Postprocedural hematoma of skin and subcutaneous tissue following other procedure cp Forms: - Medication Reconciliation Form cp - SBAR form cp Signatures: Dispatcher [employer] EDMS Jerry Bradshaw FNP-C ART OBJECTS REPAIRER-Cla1 Td Bethea PA PA cp Crystal Crook RN RN Kimber Williamson RN RN tw2 Maday Erickson tw5 Haley Mccarthy RN RN kd3 Corrections: (The following items were deleted from the chart) 08/23 18:38 18:38 Type and Screen ordered. EDMS EDMS 18:38 18:38 Type and Screen ordered. EDMS EDMS 19:38 15:39 PTT, ACTIVATED+COAG.LAB.BRZ ordered. EDMS EDMS 20:03 15:31 IV Saline Lock ordered. cp tw5 08/24 00:28 08/23 21:56 cp cg
--- NOTE | 2021-08-23 21:57 | ER ---
Nurse's Notes [facility] Name: Kati Morin Age: 70 yrs Sex: Female : 1950 Arrival Date: 08/23/2021 Time: 15:18 Bed 2 Private MD: Diagnosis: Anemia, unspecified;Postprocedural hematoma of skin and subcutaneous tissue following other procedure Presentation: 08/23 15:27 Chief complaint: Chief complaint: EMS states: Pt has recent hx of R femoral line which ph was placed on a previous visit. Spouse reports that site has been oozing blood since pt was d/c. Initial BP 138/78, HR 120, denies fever. 15:27 Coronavirus screen: Vaccine status: Patient reports receiving the 2nd dose of the covid ph vaccine. Ebola Screen: No symptoms or risks identified at this time. Initial Sepsis Screen: Does the patient meet any 2 criteria? No. Patient's initial sepsis screen is negative. Does the patient have a suspected source of infection? No. Patient's initial sepsis screen is negative. Risk Assessment: Do you want to hurt yourself or someone else? Patient reports no desire to harm self or others. Onset of symptoms was August 23, 2021. 15:27 Method Of Arrival: EMS: [facility] 15:27 Acuity: KATE 3 ph Triage Assessment: 15:28 General: Appears in no apparent distress. obese, Behavior is calm, cooperative, tw2 appropriate for age. Pain: Denies pain. EENT: No signs and/or symptoms were reported regarding the EENT system. Neuro: Level of Consciousness is awake, alert, obeys commands, Oriented to person, place, time, situation. Respiratory: Airway is patent Respiratory effort is even, unlabored, Respiratory pattern is regular, symmetrical. Derm: no bleeding noted to RIGHT femoral area. pt arrived with pressure dressing. Historical: - Allergies: 15:33 Codeine; tw2 15:33 Fentanyl; tw2 15:33 Morphine; tw2 15:33 sulfamethoxazole-trimethoprim; tw2 - Home Meds: 15:33 acebutolol 400 mg Oral cap 1 cap 2 times per day [Active]; aripiprazole 5 mg Oral tab tw2 0.5 tab once daily [Active]; chlorzoxazone 500 mg Oral tab [Active]; escitalopram oxalate 20 mg Oral tab 1 tab once daily [Active]; hydrocodone-acetaminophen 7.5-325 mg Oral tab 1 tab every 6 hours [Active]; losartan 100 mg Oral tab 1 tab once daily [Active]; sildenafil 20 mg Oral 1 tab TID [Active]; Xanax 1 mg Oral tab 1 tab 3 times per day [Active]; Xarelto 10 mg Oral tab 1 tab once daily [Active]; - PMHx: 15:33 Anxiety; Atrial Fib; Hypertension; pulmonary HTN; Rheumatoid Arthritis; tw2 - Immunization history:: Adult Immunizations. - Social history:: Smoking status: . Screenin:23 Abuse screen: Denies threats or abuse. Nutritional screening: No deficits noted. tw2 Tuberculosis screening: No symptoms or risk factors identified. Fall Risk Secondary diagnosis (15 points) impaired mobility. Assessment: 15:24 Reassessment: provider at bedside at this time. tw2 15:28 Reassessment: see triage assessment. tw2 18:02 Reassessment: Dr Kaufman at bedside for venous line placement with CLARICE Pritchard at tw2 bedside. 19:51 General: Appears uncomfortable, Behavior is calm, cooperative, appropriate for age. tw5 Pain: Complains of pain in right sternocleidomastoid Pain currently is 10 out of 10 on a pain scale. Neuro: Level of Consciousness is awake, alert, obeys commands, Oriented to person, place, time, situation. Respiratory: Airway is patent Trachea midline Respiratory effort is even, unlabored. Derm: Skin with poor turgor Skin is Skin temperature is warm Bruising that is dark purple, on right femoral area hematona to right femoral. 20:37 Reassessment: Patient appears in no apparent distress at this time. No changes from tw5 previously documented assessment. Patient and/or family updated on plan of care and expected duration. Pain level reassessed. 22:09 General: hospitalist at the bedside. . tw5 23:02 Reassessment: Patient and/or family updated on plan of care and expected duration. Pain kd3 level reassessed. Patient is alert, oriented x 3, equal unlabored respirations, skin warm/dry/pink. Vital Signs: 15:30 BP 116 / 41; Pulse 90; Resp 12; Temp 98.3(TE); Pulse Ox 95% on R/A; tw2 15:31 BP 116 / 41; Pulse 96; Resp 18; Temp 98.3; Pulse Ox 94% on R/A; ph 17:42 BP 108 / 59; Pulse 79; Resp 20; Pulse Ox 96% on R/A; tw2 18:11 BP 102 / 65; Pulse 108; Resp 32; Pulse Ox 97% on R/A; tw2 19:51 BP 114 / 82; Pulse 97; Resp 18; Pulse Ox 98% on R/A; Pain 10/10; tw5 20:04 BP 102 / 60; Pulse 94; Resp 18; Pulse Ox 98% on R/A; tw5 20:37 BP 102 / 60; Pulse 97; Resp 20; Pulse Ox 96% on R/A; tw5 21:22 BP 100 / 36; Pulse 100; Resp 20; Pulse Ox 99% on R/A; ph 22:09 BP 114 / 78; Pulse 99; Resp 21; Pulse Ox 96% on R/A; tw5 03/ 00:33 BP 107 / 68; Pulse 98; Resp 17; Pulse Ox 96% on R/A; kd3 03 18:11 Dr. Kaufman and CLARICE Cantrell at bedside performing subclavian IV access at this time. tw2 ED Course: 15:18 Patient arrived in ED. ds1 15:22 Td Bethea PA is PHCP. cp 15:22 Td Patricio MD is Attending Physician. cp 15:23 Bed in low position. Call light in reach. Side rails up X2. environmental monitoring specialist on. Pulse tw2 ox on. NIBP on. Warm blanket given. 15:31 Triage completed. ph 15:32 Arm band placed on Patient placed in an exam room. ph 16:00 Missed attempt(s): 20 gauge in right upper arm. Missed attempt at MIDLINE. Bleeding ss controlled, band aid applied, catheter tip intact. 17:32 Kimber Williamson RN is Primary Nurse. tw2 17:45 XRAY Chest (1 view) In Process Unspecified. EDMS 18:57 Chest Single View XRAY In Process Unspecified. EDMS 19:10 Primary Nurse role handed off by Kimber Williamson, RN cs9 19:22 US Lower Extremity Artery Uni Ltd In Process Unspecified. EDMS 19:22 US Extremity Venous Unilateral Ltd In Process Unspecified. EDMS 19:38 Maday Erickson is Primary Nurse. tw5 20:02 COVID-19 SARS RT PCR (Document "Date of Onset" if Symptomatic) Sent. tw5 20:02 PTT, Activated Partial Thromb Sent. tw5 20:03 Type And Screen Sent. tw5 20:03 Basic Metabolic Panel Sent. tw5 20:03 Type And Screen Sent. tw5 20:03 Basic Metabolic Panel Sent. tw5 20: CBC with Diff Sent. tw5 20: Troponin HS Sent. tw5 20:03 PT-INR Sent. tw5 20: NT PRO-BNP Sent. tw5 20:03 Magnesium Sent. tw5 20: LFT's Sent. tw5 20:04 Initial lab(s) drawn, by me, sent to lab. COVID swab sent to lab. tw5 20:04 Assisted provider with central line placement. in left subclavian. Done on previous tw5 shift. 21:50 First set of blood cultures drawn by me. tw5 21:53 Prince Davis MD is Hospitalizing Provider. cp 22:05 Second set of blood cultures drawn by me. tw 22:09 Lactate Sent. tw5 22:09 Procalcitonin Sent. tw5 22:09 Blood Culture Adult (2) Sent. tw5 22:09 Procalcitonin Sent. tw5 22:09 Lactate Sent. tw5 08/24 01:19 Patient did not have IV access during this emergency room visit. Central line. tw Administered Medications: 08/23 20:02 Drug: Cefepime 2 grams Route: IVPB; Rate: 200 ml/hr; Infused Over: 30 mins; Site: right tw5 jugular; 20:38 Follow up: Response: No adverse reaction; IV Status: Completed infusion; IV Intake: tw5 100ml 23:03 Follow up: Response: No adverse reaction kd3 22:09 Not Given (Physician Discretion): vancoMYCIN 1 grams IVPB once over 2 hrs tw5 22:09 Not Given (Physician Discretion): NS 0.9% 1000 ml IV at 1000 ml once tw5 22:56 Drug: vancoMYCIN 125 mg Route: PO; kd3 08/24 00:34 Follow up: Response: No adverse reaction kd3 Intake: 08/23 20:38 IV: 100ml; Total: 100ml. tw5 Outcome: 21:56 Decision to Hospitalize by Provider. cp 08/24 00:43 Admitted to Med/surg Report called to Attempted to call report. Was told nurse would tw5 be calling me back. 01:00 Admitted to Med/surg Report called to report given to sandy tw5 01:19 Condition: stable tw5 01:19 Instructed on the need for admit. 01:21 Patient left the ED. tw5 Signatures: Dispatcher [employer] EDIA Slime Camacho ds1 Radha Dai, RN RN Whitney Orozco RN RN Td Dahl PA PA cp Wise, Tara, RN RN 2 Maday Erickson tw5 Alia Maldonado 9 Haley Mccarthy RN RN kd3 Corrections: (The following items were deleted from the chart) 08/23 15:31 15:27 Chief complaint: ph ph 19:31 18:02 Reassessment: Dr Kaufman at bedside for line placement ph tw2
[2021-08-23] MEDS ORDERED: VANCOMYCIN 1 GM/VIAL ONE ×2 (21:58→22:52)
[2021-08-23] MEDS ORDERED: NA CHLORIDE 0.9% 250 ML ONE (21:58)
--- NOTE | 2021-08-24 | P.HP ---
Certification for Inpatient Patient admitted to: Inpatient With expected LOS: >2 Midnights Patient will require the following post-hospital care: None Practitioner: I am a practitioner with admitting privileges, knowledge of patient current condition, hospital course, and medical plan of care. Services: Services provided to patient in accordance with Admission requirements found in Title 42 Section 412.3 of the Code of Federal Regulations Patient History Date of Service: 08/23/21 Reason for admission: RLE cellulitis, anemia History of Present Illness: 70-year-old female with history of obesity, atrial fibrillation on chronic anticoagulation therapy, anxiety, recent C. difficile infection presents emergency department for bleeding from previous central line site to the right thigh area. Patient was evaluated in the emergency department she was extremely difficult stick with very poor vascular access, general surgery was consulted to obtain access who placed a right IJ. Patient was further evaluated in the emergency department her labs were significant for white blood cell count 15.8 hemoglobin 8.7 medical 27 potassium 3.3 BNP 6950. Patient had ultrasounds of her lower extremity which demonstrated hematoma present in the area chest x-ray shows that catheter is in good position with no other acute findings noted. Patient anemic also with elevated white count possible cellulitis surrounding area of hematoma and skin breakdown to the right thigh, ED provider wishes to admit for further evaluation and management. Allergies codeine Allergy (Verified 09/18/19 21:40) Itching fentanyl Allergy (Verified 05/22/21 18:09) Hives/Rash morphine Allergy (Verified 05/10/20 14:39) Hives/Rash sulfamethoxazole [From Bactrim] Allergy (Verified 09/18/19 21:40) Hives/Rash trimethoprim [From Bactrim] Allergy (Verified 09/18/19 21:40) Hives/Rash Home Medications: Acetaminophen 1 tab PO TID 08/16/21 Alprazolam [Xanax] 1 mg PO TID 08/16/21 Chlorzoxazone 1 tab PO BID 08/16/21 Hydrocodone 7.5/APAP 325 [[place] 7.5/325 mg*] 1 tab PO TID 08/16/21 Rivaroxaban [Xarelto*] 1 tab PO DAILY 08/16/21 Sildenafil Citrate 1 tab PO TID 08/16/21 Furosemide [Lasix] 20 mg PO DAILY #7 tab 08/19/21 Vancomycin Oral Soln [Vancocin HCl*] 5 ml PO Q6HR #100 ml 08/19/21 - Past Medical/Surgical History Diabetic: No -: Pulmonary hypertension -: Atrial fibrillation -: debility -: anxiety -: chronic pain -: hypertension -: rheumatoid arthritis -: obesity -: CHF -: L shoulder august 2019 -: hysterectomy -: Right shoulder injury -: Fx left elbow with surgery Psychosocial/ Personal History: Patient lives at home with her - Family History Family History: Reviewed- Non-Contributory - Social History Smoking Status: Never smoker Alcohol use: No CD- Drugs: No Caffeine use: No Place of Residence: Home Review of Systems 10-point ROS is otherwise unremarkable General: Weakness, Malaise Musculoskeletal: Leg Pain Integumentary: As per HPI Physical Examination - Physical Exam General: Alert, In no apparent distress, Oriented x3, Obese HEENT: Atraumatic, PERRLA, Other (Mucous membranes pale), EOMI, Sclerae nonicteric Neck: Supple, 2+ carotid pulse no bruit, No LAD, Other (Right IJ line present, dressed), Without JVD or thyroid abnormality Respiratory: Normal air movement, Diminished Cardiovascular: Normal S1 S2, Edema (Pitting edema bilateral lower extremities), Irregular heart rate/rhythm Capillary refill: <2 Seconds Gastrointestinal: Normal bowel sounds, No tenderness Musculoskeletal: No tenderness Integumentary: Other (Wound to right thigh area with underlying hematoma, small amount of bleeding present surrounding erythema noted.) Neurological: Normal speech, Normal strength at 5/5 x4 extr, Normal tone, Normal affect - Studies Laboratory Data (last 24 hrs) 08/23/21 20:00: PT 19.3 H, INR 1.67, APTT 38.6 H 08/23/21 20:00: WBC 15.80 H D, Hgb 8.7 L, Hct 27.0 L, Plt Count 395 D 08/23/21 20:00: Sodium 142, Potassium 3.3 L, BUN 32 H, Creatinine 0.80, Glucose 90, Magnesium 1.9, Total Bilirubin 1.0, AST 13 L, ALT 14, Alkaline Phosphatase 191 H 08/23/21 15:38: APTT Cancelled Assessment and Plan - Plan Assessment: RLE cellulitis Right thigh hematoma Acute blood loss anemia Atrial fibrillation on chronic anticoagulation therapy Recent history of C. difficile Pulmonary hypertension Anxiety Plan: RLE cellulitis: Patient with 15,000 white count, erythema surrounding wound to right thigh area. Blood pressure soft although it was thought her entire previous admission doubt sepsis at this at this time, procalcitonin and lactate both normal. Will cover with antibioticscefepime. Infectious disease consulted given recent history of C. difficile, and the fact that patient is also on oral vancomycin. General surgery consulted as well to look at wounds and monitor hematoma. Right thigh hematoma: states improving, was previously much larger. Wound healing and general surgery consulted to evaluate. Acute blood loss anemia: We will hold patient's anticoagulation tonight, repeat hemoglobin in the morning. Restart anticoagulation when approved by surgery. Atrial fibrillation on chronic anticoagulation therapy: Monitor on telemetry, continue home medications, hold anticoagulation tonight. Recent history of C. difficile: Continue oral vancomycin, infectious disease consulted. Pulmonary hypertension: Obtain and continue home medications Anxiety: Obtain and continue home medications DVT PPX: SCD Code status: Full Discharge Plan: Home Plan to discharge in: 72 Hours - Advance Directives Does patient have a Living Will: No Does patient have a Durable POA for Healthcare: No - Code Status/Comfort Care Code Status Assessed: Yes (Full) Critical Care: No Time Spent Managing Pts Care (In Minutes): 55
[2021-08-24] MEDS ORDERED: VANCOMYCIN ORAL SOLN 250 MG/5 ML OSYR PO SCH ×2 (00:48→06:00)
[2021-08-24] MEDS ORDERED: ONDANSETRON 4 MG/2 ML VIAL IV PRN (00:48)
[2021-08-24 04:46] VITALS: O2SAT 96
--- NOTE | 2021-08-24 05:03 | OP ---
Date of Procedure: 08/23/2021 Surgeon: Samuel Kaufman MD Indications: This is an emergency request for central line placement due to lack of IV fluid and imm ediate need of IV fluids. This is a case of a 70-year-old patient admitted to the hospital for multi ple medical issues. Here in ER, they cannot treat her yet. They cannot get an access on her. The E R physician and staff tried a neck line. They could not get it. They have been trying the femoral f rom the past and they could not get it. She is still in need for IV access. She is morbidly obese a nd she has been in the hospital for the last several weeks for multiple issues and it had been an iss ue once again in the past, they veins in her. The patient and fully explained I a m here to place this central line with benefits, alternatives, and risks fully explained to the [facility] nd, which include, but not limited to infection, bleeding, damage to adjacent structures, anesthesia complication, pneumothorax, hemothorax, PE, pericardial tamponade, bleeding, AL, and even . The y also understand this may not relieve any symptoms. She might need more than one surgical intervent ion. He also understands I am not in charge of her care, just called here for that emergent central line in ER for them to be able to assess her and then decide the next treatment. Description Of Procedure: Patient placed in Trendelenburg position. Right neck and chest were prepp ed and draped in a sterile fashion. Lidocaine 1% plain was injected after time-out on the right subc lavian region. We were able to, with the patient in Trendelenburg position, cannulize the subclavian vein at the first attempt, but the wire cannot pass through. I removed the needle from that area, w ent into the right jugular region. Once again, in tender position, we proceeded to carefully cannuli ze the internal jugular vein at the first attempt. A guidewire was placed through. Needle was remov ed and a central line triple lumen was placed in Seldinger technique. Excellent backflow and inflow. The line was secured in place with , secured in place with 3-0 nylon. No bleeding at thi s moment. The patient covered with sterile dressings. Patient brought back to normal position. I e ncouraged them to watch for the neck area. Patient has a previous hematoma from previous insertion b y some other staff and she is on anticoagulation and I encouraged them to look for any bleeding. At this moment, there is no bleeding. Central lines are intact. The chest x-ray was ordered stat. HM/MODL Voice ID: [id number] Report ID: [id number]
[2021-08-24 05:47] VITALS: BMI 48.8
[2021-08-24 07:30] LABS: Absolute Lymphocytes (CBC) 0.8 K/uL (0.7-4.9); Lymphocytes % 4.6 % (15.3-44.8); MPV 7.1 fL (7.6-11.3); RBC Red Blood Cell Count 3.06 M/uL (3.86-4.86)
[2021-08-24 07:49] LABS: Albumin 2.5 g/dL (3.4-5.0); Bilirubin Total 1.1 mg/dL (0.2-1.0); Potassium 3.6 mmol/L (3.5-5.1); Protein, Total 6.2 g/dL (6.4-8.2)
[2021-08-24] MEDS ORDERED: CEFEPIME 1 GM in NA CHLORIDE 0.9% 100 ML IV SCH (09:00)
[2021-08-24] MEDS ORDERED: ALPRAZOLAM 1 MG TABLET PO SCH (09:00)
[2021-08-24] MEDS ORDERED: HYDROCODONE/APAP 7.5/325 MG TAB PO SCH (09:00)
[2021-08-24] MEDS ORDERED: CHLORZOXAZONE 500 MG PO SCH (09:00)
[2021-08-24] MEDS ORDERED: SILDENAFIL CITRATE 20 MG TABLET PO SCH (09:00)
[2021-08-24] MEDS ORDERED: FUROSEMIDE 20 MG/ 2ML VIAL IV SCH (09:00)
[2021-08-24 10:04] VITALS: TEMP 97.4
[2021-08-24] MEDS ORDERED: NA CHLORIDE 0.9% 250 ML ONE (10:04)
[2021-08-24 10:28] LABS: Protime INR 1.44
[2021-08-24 12:41] VITALS: BP 123/58
[2021-08-24 13:05] LABS: Anisocytosis 1+; Blood Morphology Comment NOTED (NOT SEEN); Platelet Estimate INCR; White Blood Cell Scan OK (OK)
== END 2021-08-24 12:00 | disposition short-term general hospital (02) | DRG 920 ==
LOC: ER 15:17 → ERHOLD 23:34 → 2ND 08-24 00:41 → OBSVTOIN 08-24 09:18
PROVIDERS: ADMIT Internal Medicine; ATTEND Internal Medicine
PROC: 02HV33Z Insertion of Infusion Device into Superior Vena Cava, Percutaneous Approach (ICD-10-PCS; principal; 2021-08-23)
PROC: 30233N1 Transfusion of Nonautologous Red Blood Cells into Peripheral Vein, Percutaneous Approach (ICD-10-PCS; 2021-08-24)
DX: L76.32 Postprocedural hematoma of skin and subcutaneous tissue following other procedure (principal); Z68.42 Body mass index [BMI] 45.0-49.9, adult; L03.115 Cellulitis of right lower limb; D62 Acute posthemorrhagic anemia; E66.01 Morbid (severe) obesity due to excess calories; I10 Essential (primary) hypertension; I48.91 Unspecified atrial fibrillation; F41.9 Anxiety disorder, unspecified; I27.20 Pulmonary hypertension, unspecified; Y83.8 Other surgical procedures as the cause of abnormal reaction of the patient, or of later complication, without mention of misadventure at the time of the procedure; Z88.5 Allergy status to narcotic agent; Z88.8 Allergy status to other drugs, medicaments and biological substances; Z79.01 Long term (current) use of anticoagulants; Z90.710 Acquired absence of both cervix and uterus; Z79.899 Other long term (current) drug therapy; Z20.822 Contact with and (suspected) exposure to COVID-19
CPT/HCPCS: 36415; 71045; 80048; 80053; 80076; 83605; 83735; 83880; 84145; 84484; 85025; 85610; 85730; 86850; 86900; 86901; 87040; 93926; 93971; 96365; 99285; G0378; J0692; J1940; J3370; J7030; J7050; P9016; U0003

== ENCOUNTER → 2023-08-10 | Emergency (ER) | payer OTHER ==
[~2023-08-10] MED LIST: HYDROCODONE/APAP 5/325 MG TAB ONE
--- NOTE | 2023-08-10 13:18 | RAD REPORT ---
EXAM DESCRIPTION: CT - CTHCSPWOC - 08/10/2023 1:08 pm CLINICAL HISTORY: Trauma, head and neck injury. TRAUMA COMPARISON: No comparisons TECHNIQUE: Axial 5 mm thick images of the head were obtained. Axial 2 mm thick images of the cervical spine were obtained with sagittal and coronal reconstruction images generated and reviewed. All CT scans are performed using dose optimization technique as appropriate and may include automated exposure control or mA/KV adjustment according to patient size. FINDINGS: CT HEAD WITHOUT CONTRAST: No acute hemorrhage, hydrocephalus or extra-axial collection is identified.No areas of brain edema or midline shift. The paranasal sinuses and mastoids are clear.The calvarium is intact. CT CERVICAL SPINE WITHOUT CONTRAST: No fracture or subluxation.No prevertebral soft tissues swelling is identified. Multilevel degenerati ve changes are present in the spine. Trace anterolisthesis of C3 on C4 and trace retrolisthesis of C4 on C5. There is also trace anterolisthesis of C7 on T1. These are likely related underlying degenera tive changes. Carotid artery calcifications. IMPRESSION: No acute intracranial or cervical spine findings.
--- NOTE | 2023-08-10 13:48 | RAD REPORT ---
EXAM DESCRIPTION: RAD - Elbow Right 3 View - 08/10/2023 1:41 pm CLINICAL HISTORY: PAIN COMPARISON: No comparisons FINDINGS/IMPRESSION: No acute fracture. No malalignment. No significant focal degenerative changes.
--- NOTE | 2023-08-10 13:48 | RAD REPORT ---
EXAM DESCRIPTION: RAD - Shoulder Right 2 View - 08/10/2023 1:41 pm CLINICAL HISTORY: PAIN COMPARISON: Shoulder Right 2 View dated 09/18/2019 FINDINGS/IMPRESSION: Right humeral head deformity without discrete fracture line is likely from a re mote humeral head fracture originally identified on the 09/18/2019 radiograph. No acute fracture iden tified. No dislocation. High-riding humeral head suggests rotator cuff pathology. Widening at the rig ht AC joint may be from a distal clavicular resection.
--- NOTE | 2023-08-10 13:50 | RAD REPORT ---
EXAM DESCRIPTION: RAD - Hip Right 2 View - 08/10/2023 1:41 pm CLINICAL HISTORY: PAIN COMPARISON: No comparisons FINDINGS: No acute fracture. No malalignment. Mild right acetabular degenerative changes IMPRESSION: No acute osseous abnormality involving the right hip.
--- NOTE | 2023-08-10 14:10 | ER ---
Nurse's Notes [facility] Name: Kati Morin Age: 72 yrs Sex: Female : 1950 Arrival Date: 08/10/2023 Time: 12:06 Bed 7 Private MD: Diagnosis: Mechanical fall;Contusion of right forearm;Facial contusion Presentation: 08/10 12:09 Chief complaint: EMS states: Slid off side of bed, landed on knees then onto right side hb and face, c/o pain in right hip, elbow, shoulder, and face. Coronavirus screen: At this time, the client does not indicate any symptoms associated with coronavirus-19. Ebola Screen: No symptoms or risks identified at this time. Initial Sepsis Screen: Does the patient meet any 2 criteria? No. Patient's initial sepsis screen is negative. Does the patient have a suspected source of infection? No. Patient's initial sepsis screen is negative. Risk Assessment: Do you want to hurt yourself or someone else? Patient reports no desire to harm self or others. Onset of symptoms was August 10, 2023. 12:09 Method Of Arrival: EMS: [facility] hb 12:09 Acuity: KATE 3 hb Triage Assessment: 13:00 General: Appears in no apparent distress. Behavior is calm, cooperative. iw Historical: - Allergies: 12:13 Codeine; hb 12:13 Fentanyl; hb 12:13 Morphine; hb 12:13 sulfamethoxazole-trimethoprim; hb - PMHx: 12:13 Atrial Fib; Hypertension; Anxiety; pulmonary HTN; Rheumatoid Arthritis; hb - Immunization history:: Adult Immunizations up to date. - Social history:: Smoking status: Patient denies any tobacco usage or history of. - Family history:: not pertinent. Screenin:38 Abuse screen: Denies threats or abuse. Denies injuries from another. Nutritional iw screening: No deficits noted. Tuberculosis screening: No symptoms or risk factors identified. Assessment: 13:38 Reassessment: Patient appears in no apparent distress at this time. Patient and/or iw family updated on plan of care and expected duration. Pain level reassessed. Patient is alert, oriented x 3, equal unlabored respirations, skin warm/dry/pink. 14:28 Reassessment: pt will need ambulance transport back to house. iw Vital Signs: 12:09 BP 156 / 110; Pulse 88; Resp 16; Temp 98.1; Pulse Ox 100% on R/A; Weight 125 kg; Height hb 5 ft. 0 in. ; Pain 10/10; 14:05 BP 158 / 97; Pulse 92; Resp 16; Pulse Ox 95% ; iw 12:09 Body Mass Index 53.82 (125.00 kg, 152.4 cm) hb 12:09 Pain Scale: Adult hb ED Course: 12:09 Patient arrived in ED. hb 12:11 Hardeep Giles MD is Attending Physician. rt 12:13 Bettye Yin, RN is Primary Nurse. iw 12:13 Triage completed. hb 12:16 Arm band placed on. hb 13:10 CT Head C Spine In Process Unspecified. EDMS 13:43 Shoulder Right (2 View) XRAY In Process Unspecified. EDMS 13:43 Elbow Right 3 View XRAY In Process Unspecified. EDMS 13:43 Hip Right 2 View XRAY In Process Unspecified. EDMS 14:05 No provider procedures requiring assistance completed. Patient did not have IV access iw during this emergency room visit. Administered Medications: 12:33 Drug: [place] PO 10 mg-325 mg 1 tabs PO once Route: PO; iw Medication: 14:05 VIS not applicable for this client. iw Outcome: 14:08 Discharge ordered by . rt 14:37 Discharged to home via ambulance, EMS iw 14:37 Condition: good 14:37 Discharge instructions given to patient, family, Instructed on discharge instructions, Demonstrated understanding of instructions, 14:38 Patient left the ED. iw Signatures: Dispatcher [employer] Bettye Lind RN RN Sharon Vasquez RN RN Hardeep Giles MD MD rt
--- NOTE | 2023-08-10 14:10 | EDPHYS ---
Physician Documentation [facility] Name: Kati Morin Age: 72 yrs Sex: Female : 1950 Arrival Date: 08/10/2023 Time: 12:06 Bed 7 Private MD: ED Physician Hardeep Giles HPI: 08/10 13:05 This 72 yrs old Female presents to ER via EMS with complaints of fall. rt 13:05 Patient presents to the ED with mechanical fall. Patient was reportedly transitioning rt from a walker to a bed which she states was too high. This caused her to slip, falling onto her right side. She states that she did hit her head above the right eyebrow. Reports pain to the right shoulder, right elbow, right hip. Denies other acute complaints including loss of consciousness. Symptoms are moderate in severity, no other aggravating or alleviating factors.. Historical: - Allergies: 12:13 Codeine; hb 12:13 Fentanyl; hb 12:13 Morphine; hb 12:13 sulfamethoxazole-trimethoprim; hb - PMHx: 12:13 Atrial Fib; Hypertension; Anxiety; pulmonary HTN; Rheumatoid Arthritis; hb - Immunization history:: Adult Immunizations up to date. - Social history:: Smoking status: Patient denies any tobacco usage or history of. - Family history:: not pertinent. ROS: 13:05 Constitutional: Negative for fever, chills, and weight loss, Cardiovascular: Negative rt for chest pain, palpitations, and edema, Respiratory: Negative for shortness of breath, cough, wheezing, and pleuritic chest pain, Abdomen/GI: Negative for abdominal pain, nausea, vomiting, diarrhea, and constipation, Neuro: Negative for headache, weakness, numbness, tingling, and seizure, 13:05 MS/extremity: Positive for pain, Negative for deformity, Exam: 13:05 Constitutional: This is a well developed, well nourished patient who is awake, alert, rt and in no acute distress. Neck: Trachea midline, no thyromegaly or masses palpated, and no cervical lymphadenopathy. Supple, full range of motion without nuchal rigidity, or vertebral point tenderness. No Meningismus. Chest/axilla: Normal chest wall appearance and motion. Nontender with no deformity. No lesions are appreciated. Cardiovascular: Regular rate and rhythm with a normal S1 and S2. No gallops, murmurs, or rubs. Normal PMI, no JVD. No pulse deficits. Respiratory: Lungs have equal breath sounds bilaterally, clear to auscultation and percussion. No rales, rhonchi or wheezes noted. No increased work of breathing, no retractions or nasal flaring. Abdomen/GI: Soft, non-tender, with normal bowel sounds. No distension or tympany. No guarding or rebound. No evidence of tenderness throughout. Neuro: Awake and alert, GCS 15, oriented to person, place, time, and situation. Cranial nerves II-XII grossly intact. Motor strength 5/5 in all extremities. Sensory grossly intact. Cerebellar exam normal. Normal gait. Psych: Awake, alert, with orientation to person, place and time. Behavior, mood, and affect are within normal limits. 13:05 Head/face: Abrasion, contusion just above the right eyebrow, no other external evidence of trauma. 13:05 Musculoskeletal/extremity: Mild tenderness without deformity to the right shoulder, right elbow, right hip, pulses, motor, sensation intact, no other swelling, deformity, tenderness to palpation x 4 extremities. Vital Signs: 12:09 BP 156 / 110; Pulse 88; Resp 16; Temp 98.1; Pulse Ox 100% on R/A; Weight 125 kg; Height hb 5 ft. 0 in. ; Pain 10/10; 14:05 BP 158 / 97; Pulse 92; Resp 16; Pulse Ox 95% ; iw 12:09 Body Mass Index 53.82 (125.00 kg, 152.4 cm) hb 12:09 Pain Scale: Adult hb MDM: 12:13 Patient medically screened. rt 14:17 Differential Diagnosis Fall, contusion, fracture, intracranial hemorrhage. rt 14:17 Data reviewed: vital signs, nurses notes, radiologic studies. I considered the rt following discharge prescriptions or medication management in the emergency department Medications were administered in the Emergency Department. See MAR. Independent interpretation of the following test(s) in the Emergency Department X-Ray: My interpretation is No fracture seen on interpretation of x-ray images. Test considered but Not performed: EKG: Patient reports slip and fall, denies loss of consciousness or near syncopal symptoms, labs, EKG not indicated. Care significantly affected by the following chronic conditions: Hypertension. Counseling: I had a detailed discussion with the patient and/or guardian regarding the historical points, exam findings, and any diagnostic results supporting the discharge/admit diagnosis, radiology results, the need for outpatient follow up, to return to the emergency department if symptoms worsen or persist or if there are any questions or concerns that arise at home. 08/10 12:21 Order name: CT Head C Spine; Complete Time: 13:58 rt 08/10 12:21 Order name: Shoulder Right (2 View) XRAY; Complete Time: 13:58 rt 08/10 12:21 Order name: Elbow Right 3 View XRAY; Complete Time: 13:58 rt 08/10 12:21 Order name: Hip Right 2 View XRAY; Complete Time: 13:58 rt Administered Medications: 12:33 Drug: [place] PO 10 mg-325 mg 1 tabs PO once Route: PO; iw Disposition Summary: 08/10/23 14:08 Discharge Ordered Notes: Location: Home rt Problem: new rt Symptoms: have improved rt Condition: Stable rt Diagnosis - Mechanical fall rt - Contusion of right forearm rt - Facial contusion rt Followup: rt - With: Private Physician - When: 2 - 3 days - Reason: Discharge Instructions: - Discharge Summary Sheet rt - Contusion rt - Facial or Scalp Contusion rt - Fall Prevention in the Home, Adult rt Forms: - Medication Reconciliation Form rt - Thank You Letter rt - Antibiotic Education rt - Prescription Opioid Use rt - Patient Portal Instructions rt - Leadership Thank You Letter rt Signatures: Dispatcher [employer] Bettye Lind, Sharon Gomez RN, RN RN hb [place], Ryan, MD MD rt
[2023-08-10 14:44] VITALS: BP 158/97; TEMP 98.1; O2SAT 95
== END ==
LOC: ER 12:06
DX: S00.83XA Contusion of other part of head, initial encounter (principal); S50.11XA Contusion of right forearm, initial encounter; W18.30XA Fall on same level, unspecified, initial encounter; M25.551 Pain in right hip; M25.511 Pain in right shoulder
CPT/HCPCS: 70450; 72125

== ENCOUNTER 2023-10-11 14:38 | Emergency (ER) | payer OTHER ==
[2023-10-11 15:57] LABS: Specific Gravity 1.014 (1.005-1.030); Sqamous Epithelial <5 /HPF (None Seen); Urine Bacteria <20 /HPF (<20); Urine Bilirubin NEGATIVE (Negative); Urine Blood Trace (Negative); Urine Clarity Extremely Turbid (Clear); Urine Color Light-Yellow (Yellow); Urine Culture Reflex Order REFLEXED; Urine Glucose NEGATIVE (Negative); Urine Ketones NEGATIVE (Negative); Urine Micro Reflex YN NO BILL MICROSCOPIC; Urine Mucus Slight /HPF (None Seen); Urine Nitrite NEGATIVE (Negative); Urine Protein TRACE (Negative); Urine Urobilinogen Normal (Normal); Urine WBC >50 /HPF (<5); Urine WBC Clump Rare /HPF (None Seen); Urine pH 5.5 (5.0-7.0)
--- NOTE | 2023-10-11 16:13 | EDPHYS ---
Physician Documentation [facility] Name: Kati Morin Age: 72 yrs Sex: Female : 1950 Arrival Date: 10/11/2023 Time: 14:38 Bed 13 Private MD: ED Physician Hardeep Giles HPI: 10/10 18:41 This 72 yrs old Female presents to ER via EMS with complaints of Urinary Incontinence. rt 18:41 Patient presents to the ED with urinary incontinence. Has been present for several rt weeks, getting worse. She is on diuretics. She has had a Boone catheter for some time, has not had a Boone catheter for about 2 years. Denies other acute complaints at this time, symptoms are moderate severity, no other aggravating or alleviating factors.. Historical: - Allergies: 14:45 Codeine; cp4 14:45 Fentanyl; cp4 14:45 Morphine; cp4 14:45 sulfamethoxazole-trimethoprim; cp4 - PMHx: 14:45 Anxiety; Atrial Fib; Hypertension; pulmonary HTN; Rheumatoid Arthritis; cp4 - Immunization history:: Adult Immunizations up to date. - Infectious Disease History:: Denies. CDIFF, C. Auris, ESBL, MRSA (w/in 1 year), VRE (w/in 1 year), TB, . - Social history:: Smoking status: Patient denies any tobacco usage or history of. - Family history:: not pertinent. ROS: 18:41 Constitutional: Negative for fever, chills, and weight loss, Cardiovascular: Negative rt for chest pain, palpitations, and edema, Respiratory: Negative for shortness of breath, cough, wheezing, and pleuritic chest pain, Abdomen/GI: Negative for abdominal pain, nausea, vomiting, diarrhea, and constipation, MS/Extremity: Negative for injury and deformity, Skin: Negative for injury, rash, and discoloration, Neuro: Negative for headache, weakness, numbness, tingling, and seizure, 18:41 : Positive for Incontinence, negative for dysuria, Exam: 18:41 Constitutional: This is a well developed, well nourished patient who is awake, alert, rt and in no acute distress. Head/Face: Normocephalic, atraumatic. Chest/axilla: Normal chest wall appearance and motion. Nontender with no deformity. No lesions are appreciated. Cardiovascular: Regular rate and rhythm with a normal S1 and S2. No gallops, murmurs, or rubs. Normal PMI, no JVD. No pulse deficits. Respiratory: Lungs have equal breath sounds bilaterally, clear to auscultation and percussion. No rales, rhonchi or wheezes noted. No increased work of breathing, no retractions or nasal flaring. Abdomen/GI: Soft, non-tender, with normal bowel sounds. No distension or tympany. No guarding or rebound. No evidence of tenderness throughout. Skin: Warm, dry with normal turgor. Normal color with no rashes, no lesions, and no evidence of cellulitis. MS/ Extremity: Pulses equal, no cyanosis. Neurovascular intact. Full, normal range of motion. Neuro: Awake and alert, GCS 15, oriented to person, place, time, and situation. Cranial nerves II-XII grossly intact. Motor strength 5/5 in all extremities. Sensory grossly intact. Cerebellar exam normal. Normal gait. Vital Signs: 14:42 BP 159 / 106 LA Supine (auto/reg); Pulse 95 MON; Resp 20 S; Temp 97.9(O); Pulse Ox 94% jg11 on 4 lpm NC; 16:20 BP 179 / 106; Pulse 90; Resp 18; Pulse Ox 95% ; cp4 MDM: 14:44 Patient medically screened. rt 18:41 Differential Diagnosis Incontinence, UTI. Data reviewed: vital signs, nurses notes, lab rt test result(s). ED course: Had a long discussion with the patient regarding Boone catheter. At this time, I believe it is only reasonable or helping keep her dry lites until she is able to see a urologist. Discussed risk and benefits with the patient, she likes to have Boone catheter placed. Patient does have finding concerning for UTI, will treat with antibiotics. She will follow-up as an outpatient. No emergent etiology is suspected at this time, CT scan, blood work are not indicated.. 10/10 15:00 Order name: UAM; Complete Time: 16:08 rt 10/10 16:09 Order name: Urine Culture EDMS 10/10 15:00 Order name: Boone; Complete Time: 15:18 rt Administered Medications: No medications were administered Disposition Summary: 04/20/24 16:12 Discharge Ordered Notes: Location: Home rt Problem: new rt Symptoms: have improved rt Condition: Stable rt Diagnosis - Unspecified urinary incontinence rt - UTI/ Urinary tract infection, site not specified rt Followup: rt - With: Bunny Trinh MD - When: 5 - 6 days - Reason: Discharge Instructions: - Discharge Summary Sheet rt - Urinary Incontinence rt - Urinary Tract Infection, Adult rt Forms: - Medication Reconciliation Form rt - Thank You Letter rt - Antibiotic Education rt - Prescription Opioid Use rt - Patient Portal Instructions rt - Leadership Thank You Letter rt Prescriptions: - cefpodoxime 200 mg Oral tablet - take 1 tablet ORAL route every 12 hours with food; 14 tablet; Refills: 0, rt Product Selection Permitted Signatures: Dispatcher [employer] EDMS Hardeep Giles MD MD rt Kristen Rand cp4
--- NOTE | 2023-10-11 16:13 | ER ---
Nurse's Notes [facility] Name: Kati Morin Age: 72 yrs Sex: Female : 1950 Arrival Date: 10/11/2023 Time: 14:38 Bed 13 Private MD: Diagnosis: Unspecified urinary incontinence;UTI/ Urinary tract infection, site not specified Presentation: 10/10 14:44 Chief complaint: EMS states: urinary incontinence. Coronavirus screen: Client denies cp4 travel out of the [place] in the last 14 days. At this time, the client does not indicate any symptoms associated with coronavirus-19. Ebola Screen: Patient negative for fever greater than or equal to 101.5 degrees Fahrenheit, and additional compatible Ebola Virus Disease symptoms Patient denies exposure to infectious person. Patient denies travel to an Ebola-affected area in the 21 days before illness onset. No symptoms or risks identified at this time. Initial Sepsis Screen: Does the patient meet any 2 criteria? No. Patient's initial sepsis screen is negative. Does the patient have a suspected source of infection? No. Patient's initial sepsis screen is negative. Risk Assessment: Do you want to hurt yourself or someone else? Patient reports no desire to harm self or others. Onset of symptoms was October 11, 2023. 14:44 Method Of Arrival: EMS: [facility] 4 14:44 Acuity: KATE 3 cp4 Triage Assessment: 14:45 General: Appears in no apparent distress. Behavior is calm, cooperative, appropriate cp4 for age. Pain: Denies pain. : Denies incontinence. Historical: - Allergies: 14:45 Codeine; cp4 14:45 Fentanyl; cp4 14:45 Morphine; cp4 14:45 sulfamethoxazole-trimethoprim; cp4 - PMHx: 14:45 Anxiety; Atrial Fib; Hypertension; pulmonary HTN; Rheumatoid Arthritis; cp4 - Immunization history:: Adult Immunizations up to date. - Infectious Disease History:: Denies. CDIFF, C. Auris, ESBL, MRSA (w/in 1 year), VRE (w/in 1 year), TB, . - Social history:: Smoking status: Patient denies any tobacco usage or history of. - Family history:: not pertinent. Screenin:47 [facility] ED Fall Risk Assessment (Adult) History of falling in the last 3 months, cp4 including since admission No falls in past 3 months (0 pts) Confusion or Disorientation No (0 pts) Intoxicated or Sedated No (0 pts) Impaired Gait No (0 pts) Mobility Assist Device Used No (0 pt) Altered Elimination No (0 pt) Score/Fall Risk Level 0 - 2 = Low Risk Oriented to surroundings, Maintained a safe environment, Assessed \T\ reinforced patient's understanding of fall precautions, Hourly rounding (assess needs \T\ fall precautionary measures) done. Abuse screen: Denies threats or abuse. Nutritional screening: No deficits noted. Tuberculosis screening: No symptoms or risk factors identified. Assessment: 14:47 Reassessment: No changes from previously documented assessment. cp4 16:22 Reassessment: Pending discharge, awaiting transportation. cp4 Vital Signs: 14:42 BP 159 / 106 LA Supine (auto/reg); Pulse 95 MON; Resp 20 S; Temp 97.9(O); Pulse Ox 94% jg11 on 4 lpm NC; 16:20 BP 179 / 106; Pulse 90; Resp 18; Pulse Ox 95% ; cp4 ED Course: 14:39 Patient arrived in ED. cp4 14:43 Kristen Rand is Primary Nurse. cp4 14:43 Client placed on continuous cardiac and pulse oximetry monitoring. NIBP monitoring jg11 applied. home energy auditor on. Pulse ox on. Cleaned of incontinence. 14:44 Hardeep Giles MD is Attending Physician. rt 14:44 Oxygen administration via nasal cannula \T\ 2L/min. jg11 14:45 Triage completed. cp4 14:45 Arm band placed on right wrist. Patient placed in an exam room, on a stretcher. cp4 14:47 Bed in low position. Call light in reach. Side rails up X2. cp4 14:47 No provider procedures requiring assistance completed. cp4 15:14 Boone cath inserted, using sterile technique, 16 Fr., by ED staff, balloon inflated, jg11 Patient tolerated well. 15:18 UAM Sent. cp4 16:12 Bunny Trinh MD is Referral Physician. rt 16:20 Provided Education on: UTI. cp4 16:20 Patient did not have IV access during this emergency room visit. cp4 Administered Medications: No medications were administered Medication: 14:47 VIS not applicable for this client. cp4 Outcome: 16:12 Discharge ordered by . rt 16:20 Discharged to home via ambulance, cp4 16:20 Condition: stable 16:20 Discharge instructions given to patient, Instructed on discharge instructions, follow up and referral plans. medication usage, Demonstrated understanding of instructions, follow-up care, medications, Prescriptions given X 1, 18:38 Patient left the ED. cp4 Signatures: Hardeep Giles MD MD rt Potter, Christina cp4 Carlos Enrique Tirado jg11
[2023-10-11 19:00] VITALS: BP 179/106; TEMP 97.9; O2SAT 95
== END 2023-10-11 18:38 | disposition home or self-care (01) ==
LOC: ER 14:38
DX: R32 Unspecified urinary incontinence (principal); N39.0 Urinary tract infection, site not specified; I10 Essential (primary) hypertension; Z88.5 Allergy status to narcotic agent; Z88.2 Allergy status to sulfonamides
CPT/HCPCS: 51702; 81001; 87077; 87086; 87088; 87186; 99285

== ENCOUNTER 2023-10-15 11:19 | Inpatient (IN) | payer OTHER ==
--- NOTE | 2023-10-15 12:05 | RAD REPORT ---
EXAM DESCRIPTION: Ion Single View10/15/2023 11:40 am CLINICAL HISTORY: Malaise weakness COMPARISON: 2021 FINDINGS: Pulmonary vascular congestion is present. Lungs appear clear of acute infiltrate Heart is moderately enlarged
[2023-10-15 12:50] LABS: Absolute Eosinophils 0.3 K/uL (0-0.5); Absolute Lymphocytes (CBC) 0.8 K/uL (0.7-4.9); Absolute Monocytes 0.9 K/uL (0.1-1.3); Basophils % 0.4 % (0-1.3); Eosinophils % 2.9 % (0-4.4); Hematocrit 40.6 % (36.0-45.0); Hemoglobin 12.8 g/dL (12.0-15.0); Lymphocytes % 7.4 % (15.3-44.8); MCH 28.1 pg (27.0-35.0); MCHC 31.4 g/dL (32.0-36.0); MCV 89.4 fL (80-100); MPV 7.9 fL (7.6-11.3); Monocytes % 7.9 % (3.3-12.3); Neutrophils % 81.4 % (41.7-73.7); Platelets 212 thou/uL (152-406); RBC Red Blood Cell Count 4.54 M/uL (3.86-4.86); Red Cell Distribution Width 16.1 % (12.1-15.2)
[2023-10-15 13:09] LABS: Calcium Oxalate Crystals- Ur Few /HPF (None Seen); Specific Gravity 1.023 (1.005-1.030); Sqamous Epithelial <5 /HPF (None Seen); Urine Bacteria >50 /HPF (<20); Urine Bilirubin NEGATIVE (Negative); Urine Blood 3+ (Negative); Urine Clarity Extremely Turbid (Clear); Urine Color Yellow (Yellow); Urine Culture Reflex Order REFLEXED; Urine Glucose NEGATIVE (Negative); Urine Ketones TRACE (Negative); Urine Microscopic Reflex YN ORDER UMIC; Urine Nitrite NEGATIVE (Negative); Urine Protein 3+ (Negative); Urine RBC >50 /HPF (None Seen); Urine Urobilinogen 1+ (Normal); Urine WBC >50 /HPF (<5)
[2023-10-15 13:11] LABS: Albumin 3.3 g/dL (3.4-5.0); Albumin/Globulin Ratio 0.8 (1.1-1.8); Anion Gap 6.6 mEq/L (5.0-15.0); Bilirubin Total 1.7 mg/dL (0.2-1.0); Globulin 4.1 g/dL (2.3-3.5); Potassium 3.6 mEq/L (3.5-5.1); Protein, Total 7.4 g/dL (6.4-8.2); Troponin High Sensitivity 48.2 pg/mL (<58.9)
--- NOTE | 2023-10-15 13:23 | EDPHYS ---
Physician Documentation [facility] Name: Kati Morin Age: 72 yrs Sex: Female : 1950 Arrival Date: 10/15/2023 Time: 11:19 Bed 14 Private MD: ED Physician Beverly Fox HPI: 10/14 11:28 This 72 yrs old Female presents to ER via EMS with complaints of General Weakness, sp3 Dizziness. 11:28 72-year-old female well-known to the ED with history of atrial fibrillation on Xarelto, sp3 pulm hypertension, rheumatoid arthritis, hypertension, anxiety, obesity, bedbound now presents ED via EMS for chief complaint generalized weakness and confusion. EMS was activated by son who is in healthcare according to patient. Patient denies any fever, pain, shortness of breath, rash or any other changes/symptoms on ROS at this time.. Historical: - Allergies: 11:25 Codeine; bp 11:25 Fentanyl; bp 11:25 Morphine; bp 11:25 sulfamethoxazole-trimethoprim; bp - PMHx: 11:25 Anxiety; Hypertension; Atrial Fib; pulmonary HTN; Rheumatoid Arthritis; bp - Immunization history:: Adult Immunizations up to date. - Infectious Disease History:: Denies. - Social history:: Smoking status: Patient denies any tobacco usage or history of. ROS: 11:29 Eyes: Negative for injury, pain, redness, and discharge, ENT: Negative for injury, sp3 pain, and discharge, Neck: Negative for injury, pain, and swelling, Cardiovascular: Negative for chest pain, palpitations, and edema, Respiratory: Negative for shortness of breath, cough, wheezing, and pleuritic chest pain, Abdomen/GI: Negative for abdominal pain, nausea, vomiting, diarrhea, and constipation, Back: Negative for injury and pain, MS/Extremity: Negative for injury and deformity, Skin: Negative for injury, rash, and discoloration, 11:29 All other systems are negative, Exam: 11:29 Constitutional: This is a well developed, well nourished patient who is awake, alert, sp3 and in no acute distress. Head/Face: Normocephalic, atraumatic. Eyes: Pupils equal round and reactive to light, extra-ocular motions intact. Lids and lashes normal. Conjunctiva and sclera are non-icteric and not injected. Cornea within normal limits. Periorbital areas with no swelling, redness, or edema. ENT: Nares patent. No nasal discharge, no septal abnormalities noted. External auditory canals are clear. Oropharynx with no redness, swelling, or masses, exudates, or evidence of obstruction, uvula midline. Mucous membranes moist. Neck: Trachea midline, no thyromegaly or masses palpated, and no cervical lymphadenopathy. Supple, full range of motion without nuchal rigidity, or vertebral point tenderness. No Meningismus. Chest/axilla: Normal chest wall appearance and motion. Nontender with no deformity. No lesions are appreciated. Cardiovascular: Regular rate and rhythm with a normal S1 and S2. No gallops, murmurs, or rubs. Normal PMI, no JVD. No pulse deficits. Respiratory: Lungs have equal breath sounds bilaterally, clear to auscultation and percussion. No rales, rhonchi or wheezes noted. No increased work of breathing, no retractions or nasal flaring. Abdomen/GI: Soft, non-tender, with normal bowel sounds. No distension or tympany. No guarding or rebound. No evidence of tenderness throughout. Neuro: Awake and alert, GCS 15, oriented to person, place, time, and situation. Cranial nerves II-XII grossly intact. Motor strength 5/5 in all extremities. Sensory grossly intact. Cerebellar exam normal. Normal gait. Psych: Awake, alert, with orientation to person, place and time. Behavior, mood, and affect are within normal limits. 11:29 Skin: Thickened dry skin indicative of PVD/poor circulation in bilateral lower extremities. This is chronic in nature.. 11:30 : Boone catheter in place., sp3 Vital Signs: 11:24 BP 155 / 66; Pulse 91; Resp 22; Temp 98.7; Pulse Ox 95% on R/A; bp 12:44 BP 156 / 96; Pulse 95; Resp 22; Pulse Ox 92% ; bp 14:47 BP 161 / 98; Pulse 88; Resp 30; Pulse Ox 96% on 3 lpm NC; bp MDM: 11:24 Patient medically screened. sp3 11:30 Data reviewed: vital signs, nurses notes, EMS record, old medical records, lab test sp3 result(s), EKG, radiologic studies. ED course: 72-year-old female with PMH above now with generalized weakness and confusion. Differential diagnosis includes UTI, pneumonia, other infection, electrolyte disturbance, among others. I am not highly suspicious for TIA/CVA spectrum, ICH, or any other primary neurological emergency. Disposition pending workup and patient course.. 10/14 11:26 Order name: Blood Culture Adult (2) sp3 10/14 11:26 Order name: CBC with Diff; Complete Time: 13:18 sp3 10/14 11:26 Order name: CMP; Complete Time: 13:18 sp3 10/14 11:26 Order name: Lactate w/ 2H reflex if indic.; Complete Time: 13:18 sp3 10/14 11:26 Order name: Urinalysis w/ reflexes; Complete Time: 13:18 sp3 10/14 11:26 Order name: Troponin High Sensitivity; Complete Time: 13:18 sp3 10/14 13:12 Order name: Urine Culture EDMS 10/14 13:54 Order name: Thyroid Stimulating Hormone; Complete Time: 14:33 EDMS 10/14 13:54 Order name: Urinalysis w/ reflexes EDMS 10/14 13:54 Order name: Basic Metabolic Panel EDMS 10/14 13:54 Order name: Basic Metabolic Panel EDMS 10/14 13:54 Order name: CBC with Automated Diff EDMS 10/14 13:54 Order name: CBC with Automated Diff EDMS 10/14 13:54 Order name: CBC with Automated Diff EDMS 10/14 13:54 Order name: CBC with Automated Diff EDMS 10/14 13:54 Order name: Comprehensive Metabolic Panel EDMS 10/14 13:54 Order name: Comprehensive Metabolic Panel EDMS 10/14 13:54 Order name: Comprehensive Metabolic Panel EDMS 10/14 13:54 Order name: Comprehensive Metabolic Panel EDMS 10/14 13:54 Order name: Lipid Profile EDMS 10/14 13:54 Order name: Lipid Profile EDMS 10/14 13:54 Order name: Magnesium EDMS 10/14 13:54 Order name: Magnesium EDMS 10/14 13:54 Order name: Magnesium EDMS 10/14 13:54 Order name: Magnesium EDMS 10/14 13:54 Order name: Phosphorus EDMS 10/14 13:54 Order name: Phosphorus EDMS 10/14 13:54 Order name: Protime (+INR) EDMS 10/14 13:54 Order name: Protime (+INR) [facility] 10/14 11:26 Order name: Chest Single View XRAY; Complete Time: 12:17 3 10/14 13:53 Order name: Head Brain Wo Cont; Complete Time: 14:33 EDNM 10/14 11:26 Order name: EKG; Complete Time: 11:26 sp3 10/14 13:54 Order name: Physical Therapy Consult [facility] 10/14 11:26 Order name: Cardiac monitoring; Complete Time: 11:29 sp3 10/14 11:26 Order name: EKG - Nurse/Tech; Complete Time: 12:21 sp3 10/14 11:26 Order name: IV Saline Lock - Large Bore; Complete Time: 12: 3 10/14 11:26 Order name: Labs collected and sent; Complete Time: 12:21 3 10/14 11:26 Order name: O2 Per Protocol; Complete Time: 11:29 3 10/14 11:26 Order name: O2 Sat Monitoring; Complete Time: 11:29 3 10/14 11:26 Order name: Vital Signs; Complete Time: 11:28 3 10/14 12:50 Order name: Labs - recollect needed: recollect blood culture; Complete Time: 13:44 bd Administered Medications: 13:53 Drug: Cefepime IVPB 1 grams IVPB at 200 ml/hr once over 30 mins; (mix in NS 100 mL) bp Route: IVPB; Rate: 200 ml/hr; Infused Over: 30 mins; Site: right forearm; 14:28 Follow up: IV Status: Completed infusion; IV Intake: 200ml bp Disposition Summary: 10/15/23 13:22 Hospitalization Ordered Notes: Hospitalization Status: Inpatient Admission sp3 Provider: Sean Rod sp3 Location: Telemetry/MedSurg (Inpatient) sp3 Condition: Stable sp3 Problem: an acute exacerbation sp3 Symptoms: have worsened sp3 Bed/Room Type: Standard sp3 Room Assignment: 217(10/15/23 13:57) bd Diagnosis - Altered mental status, UTI sp3 Forms: - Medication Reconciliation Form sp3 - SBAR form sp3 - Leadership Thank You Letter sp3 Signatures: Dispatcher [employer] EDCordelia Swift Brian, RN RN bp Beverly Fox MD MD sp3 Corrections: (The following items were deleted from the chart) 13:57 13:22 sp3 bd
--- NOTE | 2023-10-15 13:23 | ER ---
Nurse's Notes [facility] Name: Kati Morin Age: 72 yrs Sex: Female : 1950 Arrival Date: 10/15/2023 Time: 11:19 Bed 14 Private MD: Diagnosis: Altered mental status, UTI Presentation: 10/14 11:24 Chief complaint: EMS states: WEAKNESS AND DIZZINESS. Coronavirus screen: At this time, bp the client does not indicate any symptoms associated with coronavirus-19. Ebola Screen: No symptoms or risks identified at this time. Initial Sepsis Screen: Does the patient meet any 2 criteria? No. Patient's initial sepsis screen is negative. Does the patient have a suspected source of infection? No. Patient's initial sepsis screen is negative. Risk Assessment: Do you want to hurt yourself or someone else? Patient reports no desire to harm self or others. Onset of symptoms is unknown. 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 11:24 Method Of Arrival: EMS: [facility] bp 11:24 Acuity: KATE 3 bp Triage Assessment: 11:25 General: Appears obese, unkempt, Behavior is cooperative, appropriate for age, anxious. bp Pain: Denies pain. EENT: No deficits noted. Neuro: Reports weakness. Cardiovascular: Rhythm is sinus rhythm. Respiratory: No deficits noted. : Ramirez in place. Historical: - Allergies: 11:25 Codeine; bp 11:25 Fentanyl; bp 11:25 Morphine; bp 11:25 sulfamethoxazole-trimethoprim; bp - PMHx: 11:25 Anxiety; Hypertension; Atrial Fib; pulmonary HTN; Rheumatoid Arthritis; bp - Immunization history:: Adult Immunizations up to date. - Infectious Disease History:: Denies. - Social history:: Smoking status: Patient denies any tobacco usage or history of. Screenin:27 [facility] ED Fall Risk Assessment (Adult) History of falling in the last 3 months, bp including since admission No falls in past 3 months (0 pts). Abuse screen: Denies threats or abuse. Denies injuries from another. Nutritional screening: No deficits noted. Tuberculosis screening: No symptoms or risk factors identified. Assessment: 11:27 General: SEE TRIAGE NOTE. bp 12:44 Reassessment: No changes from previously documented assessment. Patient is alert, bp oriented x 3, equal unlabored respirations, skin warm/dry/pink. 14:07 Reassessment: REPORT FAXED FOR 217. bp 14:47 Reassessment: ATTEMPTED TO CALL 2ND FLOOR UNSUCCESSFULLY, PT GILL. bp Vital Signs: 11:24 BP 155 / 66; Pulse 91; Resp 22; Temp 98.7; Pulse Ox 95% on R/A; bp 12:44 BP 156 / 96; Pulse 95; Resp 22; Pulse Ox 92% ; bp 14:47 BP 161 / 98; Pulse 88; Resp 30; Pulse Ox 96% on 3 lpm NC; bp ED Course: 11:23 Patient arrived in ED. bp 11:24 Beverly Fox MD is Attending Physician. sp3 11:25 Triage completed. bp 11:25 Arm band placed on. bp 11:27 Patient has correct armband on for positive identification. bp 11:27 SHUFFLE BOARD OPERATOR. bp 11:28 Piotr Carter, RN is Primary Nurse. bp 11:42 Chest Single View XRAY In Process Unspecified. EDMS 12:20 Troponin High Sensitivity Sent. bp 12:20 Blood Culture Adult (2) Sent. bp 12:20 CBC with Diff Sent. bp 12:20 CMP Sent. bp 12:20 Lactate w/ 2H reflex if indic. Sent. bp 12:20 Urinalysis w/ reflexes Sent. bp 12:21 Inserted saline lock: 22 gauge in right forearm, using aseptic technique. Blood bp collected. 12:21 Initial lab(s) drawn, by nv, Urine collected: Ramirez catheter specimen, cloudy. bp 13:22 Sean Rod MD is Hospitalizing Provider. sp3 13:44 Blood Culture Adult (2) Sent. bp 13:44 Urine Culture Sent. bp 14:04 Head Brain Wo Cont In Process Unspecified. EDMS Administered Medications: 13:53 Drug: Cefepime IVPB 1 grams IVPB at 200 ml/hr once over 30 mins; (mix in NS 100 mL) bp Route: IVPB; Rate: 200 ml/hr; Infused Over: 30 mins; Site: right forearm; 14:28 Follow up: IV Status: Completed infusion; IV Intake: 200ml bp Medication: 11:27 VIS not applicable for this client. bp Intake: 14:28 IV: 200ml; Total: 200ml. bp Outcome: 13:22 Decision to Hospitalize by Provider. sp3 14:49 Patient left the ED. em1 Signatures: Dispatcher [employer] Jason Velazco em1 Piotr Carter, RN RN Beverly Bernard MD MD sp3
--- NOTE | 2023-10-15 13:41 | P.HP ---
Certification for Inpatient Patient admitted to: Inpatient With expected LOS: >2 Midnights Patient will require the following post-hospital care: Longterm Practitioner: I am a practitioner with admitting privileges, knowledge of patient current condition, hospital course, and medical plan of care. Services: Services provided to patient in accordance with Admission requirements found in Title 42 Section 412.3 of the Code of Federal Regulations <Lauren Pate - Last Filed: 10/15/23 18:02> Patient History Date of Service: 10/15/23 <BronsonVahid hendersonadamasher Antionette - Last Filed: 10/15/23 17:31> Date of Service: 10/15/23 Primary Care Provider: Herminio Reason for admission: ams, uti, htn, chf, pulmonary hypertension History of Present Illness: Mrs. Morin is a 72-year-old with a past medical history of hypertension, hyperlipidemia, CHF, arthritis, deconditioning, morbid obesity, and is generally bedbound. Her has been hospitalized, at this facility, for about a week and he is generally her caregiver. She states that sometimes she is able to stand and take a few steps with max assistance. However with her being away, she has been in the bed. She was brought to the emergency department over the weekend and diagnosed with a urinary tract infection. A Boone was placed and she was placed on Macrobid. She returned to the emergency department today with a chief complaint of dizziness, headache, confusion, and continued urinary symptoms. Laboratory evaluation reveals a white count of 11.1 with a left shift of 81.4%, Chem-7 with a minimum of abnormalities however creatinine 1.04 BUN 27, glucose 117, T. bili 1.7, alk phos 124. Lactate 1.0. Cath urine specimen is extremely turbid with trace ketones, 3+ blood, 3+ protein, 500 esterase, greater than 50 WBCs, greater than 50 RBCs, greater than 50 bacteria. This has been sent for culture. Chest x-ray shows pulmonary vascular congestion otherwise lungs are clear, heart is moderately enlarged. On my evaluation, patient is alert and oriented. She states she supposed to stay here until her gets out of the hospital. I think SNF evaluation is a good idea. Her blood pressure is 176/103, heart rate 80, respiratory rate 22, SpO2 on room air 92%. She will be admitted for further evaluation and treatment. - Past Medical/Surgical History Diabetic: No -: Pulmonary hypertension -: Atrial fibrillation -: debility -: anxiety -: chronic pain -: hypertension -: rheumatoid arthritis -: obesity -: CHF -: L shoulder august 2019 -: hysterectomy -: Right shoulder injury -: Fx left elbow with surgery Psychosocial/ Personal History: Patient lives at home with her - Social History Alcohol use: No CD- Drugs: No Caffeine use: No Place of Residence: Home <Lauren Pate - Last Filed: 10/15/23 18:02> Allergies codeine Allergy (Verified 09/18/19 21:40) Itching fentanyl Allergy (Verified 05/22/21 18:09) Hives/Rash morphine Allergy (Verified 05/10/20 14:39) Hives/Rash sulfamethoxazole [From Bactrim] Allergy (Verified 09/18/19 21:40) Hives/Rash trimethoprim [From Bactrim] Allergy (Verified 09/18/19 21:40) Hives/Rash Home Medications: Acetaminophen 1 tab PO TID 08/16/21 Alprazolam [Xanax] 1 mg PO TID 08/16/21 Chlorzoxazone 1 tab PO BID 08/16/21 Hydrocodone 7.5/APAP 325 [[place] 7.5/325 mg*] 1 tab PO TID 08/16/21 Rivaroxaban [Xarelto*] 1 tab PO DAILY 08/16/21 Sildenafil Citrate 1 tab PO TID 08/16/21 Furosemide [Lasix] 20 mg PO DAILY #7 tab 08/19/21 Vancomycin Oral Soln [Vancocin HCl*] 5 ml PO Q6HR #100 ml 08/19/21 Review of Systems 10-point ROS is otherwise unremarkable General: As per HPI Respiratory: As per HPI Genitourinary: As per HPI Musculoskeletal: As per HPI Neurological: As per HPI <Lauren Pate - Last Filed: 10/15/23 18:02> Physical Examination - Studies Laboratory Data (last 24 hrs) 10/15/23 10/15/23 12:30 12:30 WBC 11.10 H Hgb 12.8 Hct 40.6 Plt Count 212 Sodium 141 Potassium 3.6 BUN 27 H Creatinine 1.04 H Glucose 117 H Total Bilirubin 1.7 H AST 33 ALT 23 Alkaline Phosphatase 124 H <Vahid Rodukwu C - Last Filed: 10/15/23 17:31> - Physical Exam General: Alert, In no apparent distress, Oriented x3, Obese HEENT: Atraumatic, Normocephalic Neck: Supple Respiratory: Normal air movement, Other (mild increased work of breathing) Cardiovascular: Normal pulses, Edema, Irregular heart rate/rhythm Capillary refill: <2 Seconds Gastrointestinal: Soft and benign Musculoskeletal: Other (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, arthritic, poorly mobile joints) Integumentary: Other (candidal areas under breasts and in skin folds, dry) Neurological: Normal speech, Abnormal strength, Abnormal tone Lymphatics: No axilla or inguinal lymphadenopathy External genitalia: Deferred Rectal: Deferred - Studies Laboratory Data (last 24 hrs) 10/15/23 10/15/23 12:30 12:30 WBC 11.10 H Hgb 12.8 Hct 40.6 Plt Count 212 Sodium 141 Potassium 3.6 BUN 27 H Creatinine 1.04 H Glucose 117 H Total Bilirubin 1.7 H AST 33 ALT 23 Alkaline Phosphatase 124 H <Lauren Pate - Last Filed: 10/15/23 18:02> Assessment and Plan Physician Review Additional Text: Pt seen and examined. I agree with the note by the FRONT DESK AGENT. Pt is 72 yo female with past medical history of Htn, Anxiety, A. fib, Pulm Htn, and Rheumatoid arthritis who presents with AMS and generalized weakness. His son called EMS due to worsening symptoms. On admission, lab studies show wbc 11.1, Hgb 12.8, K 3.6, Cr 1.04, glucose 117. Urinalysis shows evidence of UTI. CXR shows pulm vascular congestion. At bedside, pt is in NAD. A/P: AMS: 2/2 UTI. Will continue abx. UTI: Continue rocephin and f/u urine cx. Hx of A. fib: Luis continue telemetry and home meds. Htn: Continue home meds. Morbid obesity: Pt was advised to lose weight. Code: full. <MarcelNawaffreddy Adan - Last Filed: 10/15/23 17:31> - Plan A/P: AMS: 2/2 UTI. Will continue abx. UTI: Continue rocephin and f/u urine cx. Hx of A. fib: Luis continue telemetry and home meds. Htn: Continue home meds. Morbid obesity: Pt was advised to lose weight. Code: full. - Advance Directives Does patient have a Living Will: No Does patient have a Durable POA for Healthcare: No <Lauren Pate - Last Filed: 10/15/23 18:02>
[2023-10-15] MEDS ORDERED: CIPROFLOXACIN 400mg IV 400 MG/200 ML BAG IV ONE (13:48)
--- NOTE | 2023-10-15 14:29 | RAD REPORT ---
EXAM DESCRIPTION: CT - Head Brain Wo Cont - 10/15/2023 2:02 pm CLINICAL HISTORY: confusion on Xarelto COMPARISON: Head Brain Wo Cont dated 07/22/2021; Head Brain Wo Cont dated 05/29/2021 TECHNIQUE: Noncontrast head CT images were obtained without IV contrast. Multiplanar reformats were generated and reviewed. All CT scans are performed using dose optimization technique as appropriate and may include automated exposure control or mA/KV adjustment according to patient size. FINDINGS: No intracranial hemorrhage, mass, or edema. Midline structures are unremarkable. Normal ventricular caliber for age. Vasquez-white matter differentiation is preserved, without evidence of acute infarct. No abnormal extra- axial fluid collections. Mastoid air cells and visualized portions of the paranasal sinuses are clear. No acute bony findings. Asymmetric swelling and adjacent fat stranding along the left superficial parotid lobe, incompletely imaged. IMPRESSION: No evidence of an acute intracranial process. Asymmetric swelling and adjacent fat stranding along the left superficial parotid lobe. Please correl ate clinically for evidence of parotitis.
[2023-10-15] MEDS: NITROGLYCERIN 0.2 MG/HR (5 MG) PATCH TD SCH (14:34)
[2023-10-15] MEDS: FUROSEMIDE 20 MG/ 2ML VIAL IV SCH (14:35)
[2023-10-15] MEDS ORDERED: SODIUM CHLORIDE 0.9% 10ML INJ IV PRN (14:52)
[2023-10-15] MEDS ORDERED: LORAZEPAM 0.5 MG TABLET PO PRN (14:54)
[2023-10-15 16:22] VITALS: BMI 94.5
[2023-10-15] MEDS: NYSTATIN PWDR 100000 UNIT/GM TOP SCH (22:05)
[2023-10-15] MEDS: CIPROFLOXACIN 400mg IV 400 MG/200 ML BAG IV SCH (22:05)
[2023-10-15] MEDS: BACLOFEN 10 MG TAB PO SCH (22:05)
[2023-10-15] MEDS: SILDENAFIL CITRATE 20 MG TABLET PO SCH (22:06)
[2023-10-15] MEDS: CEFTRIAXONE 1,000 MG in NA CHLORIDE 0.9% 50 ML IVPB SCH (22:06)
[2023-10-16] MEDS: TRAMADOL HCL 50 MG TAB PO PRN (00:41)
[2023-10-16 03:57] LABS: PT Prothrombin Time 16.4 SECONDS (9.5-12.5); Protime INR 1.51
[2023-10-16 04:01] LABS: Absolute Eosinophils 0.4 K/uL (0-0.5); Absolute Lymphocytes (CBC) 0.7 K/uL (0.7-4.9); Absolute Monocytes 0.9 K/uL (0.1-1.3); Absolute Neutrophil 5.2 K/uL (1.8-8.0); Basophils % 0.3 % (0-1.3); Eosinophils % 5.4 % (0-4.4); Hematocrit 35.2 % (36.0-45.0); Hemoglobin 11.5 g/dL (12.0-15.0); Lymphocytes % 9.7 % (15.3-44.8); MCH 29.2 pg (27.0-35.0); MCHC 32.8 g/dL (32.0-36.0); MCV 89.2 fL (80-100); MPV 7.9 fL (7.6-11.3); Monocytes % 12.4 % (3.3-12.3); Neutrophils % 72.2 % (41.7-73.7); Platelets 203 thou/uL (152-406); RBC Red Blood Cell Count 3.94 M/uL (3.86-4.86); Red Cell Distribution Width 15.6 % (12.1-15.2)
[2023-10-16 04:23] LABS: Albumin 2.8 g/dL (3.4-5.0); Albumin/Globulin Ratio 0.8 (1.1-1.8); Anion Gap 4.7 mEq/L (5.0-15.0); Bilirubin Total 0.9 mg/dL (0.2-1.0); Globulin 3.5 g/dL (2.3-3.5); Magnesium 2.1 mg/dL (1.6-2.4); Phosphorus 3.8 mg/dL (2.5-4.9); Potassium 3.7 mEq/L (3.5-5.1); Protein, Total 6.3 g/dL (6.4-8.2)
[2023-10-16] MEDS ORDERED: RIVAROXABAN 10 MG TABLET PO SCH (09:00)
[2023-10-16] MEDS: POTASSIUM CL SA 10 MEQ TAB PO ONE (10:25)
[2023-10-16] MEDS: RIVAROXABAN 10 MG TABLET PO SCH (10:26)
[2023-10-16] MEDS: SILDENAFIL CITRATE 20 MG TABLET PO SCH (10:26)
[2023-10-16] MEDS: PANTOPRAZOLE 40 MG INJ IVP SCH (10:26)
[2023-10-16] MEDS: ASPIRIN EC 81 MG TAB PO SCH (10:26)
[2023-10-16] MEDS: SPIRONOLACTONE 25 MG TABLET PO SCH (10:26)
--- NOTE | 2023-10-16 12:40 | P.PN ---
Subjective Date of Service: 10/16/23 Primary Care Provider: Herminio Chief Complaint: ams, uti, htn, chf, pulmonary hypertension Subjective: Demented (Talking to herself and crying this am. She states we have lost her and are being mean to her. Reoriented. Pt is on a lot of scheduled benzodiazepines and muscle relaxers. Trying to decrease regimen without causing ill neuro effects) <Lauren Pate - Last Filed: 10/16/23 12:40> Date of Service: 10/16/23 <Sean Rod - Last Filed: 10/16/23 13:52> Review of Systems 10-point ROS is otherwise unremarkable General: Weakness, Malaise, As per HPI Respiratory: Shortness of Breath, As per HPI Cardiovascular: Orthopnea, As per HPI Integumentary: As per HPI Neurological: As per HPI <Lauren Pate - Last Filed: 10/16/23 12:40> Physical Examination - Vital Signs Temperature: 97.6 F Blood Pressure: 136/69 Pulse: 81 Respirations: 16 Pulse Ox (%): 94 - Physical Exam General: Alert, Obese, Other (tearful, talking to herself) HEENT: Atraumatic, PERRLA, EOMI Neck: Supple, JVD not distended Respiratory: Clear to auscultation bilaterally, Normal air movement Cardiovascular: Normal pulses Capillary refill: <2 Seconds Gastrointestinal: Normal bowel sounds, No tenderness Musculoskeletal: No tenderness, Other (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 And possibly overmedication. Will continue Rocephin and adjust home medications. UTI: Continue rocephin and f/u urine cx, pending with 4+ gram negative rods. Hx of A. fib: Will continue telemetry and home meds. Htn: Continue home meds. Morbid obesity: Pt was advised to lose weight. Code: full. <Lauren Pate - Last Filed: 10/16/23 12:40> - Plan Pt seen and examined. I agree with the note by the DENTAL ASSISTANT MEDICAL ASSISTANT. Pt is missing her . Her was transferred to [facility] for decortication of the loculated right pleural effusion. Will continue rocephin for UTI. . <Sean Rod - Last Filed: 10/16/23 13:52>
--- NOTE | 2023-10-16 16:45 | EKG ---
Test Date: 2023-10-15 Test Time: 11:52:23 Nutrition Assistant: BP MEASUREMENT RESULTS: Intervals: Rate: 93 MS: QRSD: 94 QT: 390 QTc: 484 [place]: P: MS: QRS: 106 T: 123 INTERPRETIVE STATEMENTS: Atrial fibrillation Nonspecific T wave abnormality, probably digitalis effect Prolonged QT Abnormal ECG Compared to ECG 08/15/2021 15:05:12 T-wave abnormality now present Prolonged QT interval now present ST (T wave) deviation no longer present Electronically Signed On 10-16-23 16:41:59 CDT by Willie Vieira
--- NOTE | 2023-10-16 18:14 | RAD REPORT ---
EXAM DESCRIPTION: RADChest Single View10/16/2023 5:52 pm CLINICAL HISTORY: post PICC placement COMPARISON: Chest Single View dated 10/15/2023; Chest Single View dated 08/23/2021; Chest Single View d ated 08/23/2021; Chest Single View dated 08/15/2021 TECHNIQUE: Portable AP view of the chest. FINDINGS: Right arm PICC has been placed with catheter tip projecting over the distal SVC. The lungs are clear. No pneumothorax or effusion. Stable cardiomegaly with central interstitial prominence. M ediastinal contours are unremarkable. IMPRESSION: Stable right arm PICC positioning. Stable cardiomegaly. No acute pulmonary process.
[2023-10-16] MEDS ORDERED: ZIPRASIDONE 20 MG CAP PO SCH (21:00)
[2023-10-16] MEDS: BACLOFEN 10 MG TAB PO SCH (21:15)
[2023-10-16] MEDS: ZIPRASIDONE 20 MG CAP PO SCH (21:16)
[2023-10-16] MEDS: Mupirocin NASAL 2 APPL/1 GM TUBE NAS SCH (21:16)
[2023-10-17 03:16] LABS: Absolute Basophils 0.1 K/uL (0-0.5); Absolute Eosinophils 0.6 K/uL (0-0.5); Absolute Lymphocytes (CBC) 1.8 K/uL (0.7-4.9); Absolute Monocytes 1.8 K/uL (0.1-1.3); Absolute Neutrophil 6.9 K/uL (1.8-8.0); Basophils % 0.5 % (0-1.3); Eosinophils % 5.7 % (0-4.4); Hematocrit 40.9 % (36.0-45.0); Hemoglobin 12.5 g/dL (12.0-15.0); Lymphocytes % 15.8 % (15.3-44.8); MCH 27.9 pg (27.0-35.0); MCHC 30.6 g/dL (32.0-36.0); MPV 8.5 fL (7.6-11.3); Monocytes % 16.3 % (3.3-12.3); Neutrophils % 61.7 % (41.7-73.7); Platelets 187 thou/uL (152-406); RBC Red Blood Cell Count 4.49 M/uL (3.86-4.86); Red Cell Distribution Width 16.2 % (12.1-15.2)
[2023-10-17 03:20] LABS: Albumin 3.2 g/dL (3.4-5.0); Albumin/Globulin Ratio 0.8 (1.1-1.8); Anion Gap 8.5 mEq/L (5.0-15.0); Bilirubin Total 1.1 mg/dL (0.2-1.0); Globulin 4.1 g/dL (2.3-3.5); Magnesium 2.2 mg/dL (1.6-2.4); Potassium 4.5 mEq/L (3.5-5.1); Protein, Total 7.3 g/dL (6.4-8.2)
[2023-10-17] MEDS: LORAZEPAM 0.5 MG TABLET PO SCH (14:14)
--- NOTE | 2023-10-17 18:41 | P.PN ---
Subjective Date of Service: 10/17/23 Primary Care Provider: Herminio Chief Complaint: ams, uti, htn, chf, pulmonary hypertension Subjective: Other (remains tearful but more oriented this am. Continues to worry about her . States we are just trying to commit her to a "old folks home") <Lauren Patelen - Last Filed: 10/17/23 18:36> Date of Service: 10/17/23 <Sean Rod - Last Filed: 10/17/23 22:00> Review of Systems 10-point ROS is otherwise unremarkable General: As per HPI Neurological: As per HPI <Lauren Patelen - Last Filed: 10/17/23 18:36> Physical Examination - Vital Signs Temperature: 97.3 F Blood Pressure: 144/62 Pulse: 84 Respirations: 18 Pulse Ox (%): 97 - Physical Exam General: Alert, Oriented x3, Obese, Other (tearful) HEENT: Atraumatic, Normocephalic Neck: Supple Respiratory: Diminished Cardiovascular: Regular rate/rhythm, Normal S1 S2 Capillary refill: <2 Seconds Gastrointestinal: Soft and benign Musculoskeletal: No clubbing Integumentary: No rashes Neurological: Normal speech, Abnormal strength, Abnormal affect Lymphatics: No axilla or inguinal lymphadenopathy External genitalia: Deferred Rectal: Deferred - Studies Microbiology Data (last 24 hrs): 10/15/23 12:30 Clean Catch Urine [place] Count - Final >100,000 CFU/ML. 10/15/23 12:30 Clean Catch Urine - Final Klebsiella Pneumoniae <Lauren Patelen - Last Filed: 10/17/23 18:36> - Studies Microbiology Data (last 24 hrs): 10/15/23 12:30 Clean Catch Urine [place] Count - Final >100,000 CFU/ML. 10/15/23 12:30 Clean Catch Urine - Final Klebsiella Pneumoniae <Sean Rod - Last Filed: 10/17/23 22:00> Assessment And Plan - Plan A/P: AMS: 2/2 UTI. And possibly overmedication. Will continue Rocephin and adjust home medications. UTI: Continue rocephin and f/u urine cx, pending with 4+ gram negative rods. + Klebsiella pneumoniae has PICC Hx of A. fib: Will continue telemetry and home meds. Htn: Continue home meds. Morbid obesity: Pt was advised to lose weight. Awaiting SNF Code: full. <Lauren Pate - Last Filed: 10/17/23 18:36> - Plan Pt seen and examined. I agree with the note by the INSERTER OPERATOR. Will continue rocephin for UTI. Urine cx is growing klebsiella. Pt will need psych eval. She is emotional about her family issues <Sean Rod - Last Filed: 10/17/23 22:00>
[2023-10-18 04:44] LABS: Absolute Basophils 0.1 K/uL (0-0.5); Absolute Eosinophils 0.4 K/uL (0-0.5); Absolute Lymphocytes (CBC) 1.1 K/uL (0.7-4.9); Absolute Monocytes 1.1 K/uL (0.1-1.3); Absolute Neutrophil 5.1 K/uL (1.8-8.0); Basophils % 0.7 % (0-1.3); Eosinophils % 5.3 % (0-4.4); Hematocrit 36.2 % (36.0-45.0); Hemoglobin 11.5 g/dL (12.0-15.0); MCH 28.4 pg (27.0-35.0); MCHC 31.7 g/dL (32.0-36.0); MCV 89.7 fL (80-100); MPV 7.9 fL (7.6-11.3); Monocytes % 14.2 % (3.3-12.3); Neutrophils % 65.8 % (41.7-73.7); Nucleated Red Blood Cells % 0.1 % (0-0); Platelets 217 thou/uL (152-406); RBC Red Blood Cell Count 4.04 M/uL (3.86-4.86); Red Cell Distribution Width 15.7 % (12.1-15.2)
[2023-10-18 05:05] LABS: Albumin 2.8 g/dL (3.4-5.0); Albumin/Globulin Ratio 0.8 (1.1-1.8); Anion Gap 5.3 mEq/L (5.0-15.0); Globulin 3.5 g/dL (2.3-3.5); Potassium 4.3 mEq/L (3.5-5.1); Protein, Total 6.3 g/dL (6.4-8.2)
[2023-10-18] MEDS ORDERED: PANTOPRAZOLE 40MG TABLET PO SCH (07:30)
--- NOTE | 2023-10-18 13:24 | P.PN ---
Subjective Date of Service: 10/18/23 Primary Care Provider: Herminio Chief Complaint: ams, uti, htn, chf, pulmonary hypertension Subjective: Improving (still tearful and talking in circles but a little calmer. Will increase Geodon to BID) <Lauren Pate - Last Filed: 10/18/23 13:13> Date of Service: 10/18/23 <Sean Rod C - Last Filed: 10/18/23 13:45> Review of Systems 10-point ROS is otherwise unremarkable General: As per HPI Genitourinary: As per HPI Neurological: As per HPI <Lauren Pate - Last Filed: 10/18/23 13:13> Physical Examination - Vital Signs Temperature: 97.6 F Blood Pressure: 148/71 Pulse: 84 Respirations: 18 Pulse Ox (%): 97 - Physical Exam General: Alert, Obese HEENT: Normocephalic Neck: JVD not distended Respiratory: Diminished Cardiovascular: Normal pulses Capillary refill: <2 Seconds Gastrointestinal: Soft and benign Musculoskeletal: Other (crusting of lower extremities) Integumentary: No rashes Neurological: Other (refuses PT, refuses to help roll her, states it hurts to be touched), Abnormal strength Lymphatics: No axilla or inguinal lymphadenopathy External genitalia: Deferred Rectal: Deferred <Lauren Pate - Last Filed: 10/18/23 13:13> Assessment And Plan - Plan A/P: AMS: 2/2 UTI. And possibly overmedication. Will continue Rocephin and adjust home medications. Weaning Ativan. Increased Geodon to BID 10/17, Psych consult pending UTI: Continue rocephin and f/u urine cx, pending with 4+ gram negative rods. + Klebsiella pneumoniae has PICC, Continue Rocephin Hx of A. fib: Will continue telemetry and home meds. Htn: Continue home meds. Morbid obesity: Pt was advised to lose weight. Awaiting SNF Code: full. <Lauren Pate - Last Filed: 10/18/23 13:13> - Plan Pt seen and examined. I agree with the note by the DIE CASTING SUPERVISOR. Continue rocephin for UTI. Will consult psych for evaluation. <Sean Rod C - Last Filed: 10/18/23 13:45>
[2023-10-18] MEDS: ZIPRASIDONE 20 MG CAP PO ONE (13:33)
[2023-10-18] MEDS: ZIPRASIDONE 20 MG CAP PO SCH (21:28)
--- NOTE | 2023-10-19 08:56 | P.PN ---
Subjective Date of Service: 10/19/23 Primary Care Provider: Herminio Chief Complaint: ams, uti, htn, chf, pulmonary hypertension Subjective: Improving (more normal conversation pattern today, seems calmer) <RioLauren Caba - Last Filed: 10/19/23 08:40> Date of Service: 10/19/23 <Sean Rod Antionette - Last Filed: 10/19/23 11:43> Review of Systems 10-point ROS is otherwise unremarkable General: As per HPI Genitourinary: As per HPI Musculoskeletal: As per HPI Neurological: As per HPI <Lauren Patelen - Last Filed: 10/19/23 08:40> Physical Examination - Vital Signs Temperature: 97.6 F Blood Pressure: 170/72 Pulse: 85 Respirations: 20 Pulse Ox (%): 95 - Physical Exam General: Alert, In no apparent distress, Oriented x3, Obese HEENT: Atraumatic, Normocephalic Neck: JVD not distended Respiratory: Normal air movement Cardiovascular: Normal pulses, Regular rate/rhythm Capillary refill: <2 Seconds Gastrointestinal: Soft and benign Musculoskeletal: Tenderness, Other (bilateral knees) Integumentary: Other (thin skin, pedal edema, with thickening of skin) Neurological: Normal speech, Normal affect, Abnormal strength Lymphatics: No axilla or inguinal lymphadenopathy External genitalia: Deferred Rectal: Deferred <Lauren Pate - Last Filed: 10/19/23 08:40> Assessment And Plan - Plan A/P: AMS: 10/18 Overmedication. adjusted home medication. Weaning ativan. 10/18 Stopped ativan today Geodon 20mg BID, pt is more calm, reasonable today Psych consult pending UTI. Rocephin started 10/14 (dose #5 today) (+ Klebsiella pneumoniae has PICC) Hx of A. fib: Continue telemetry and home meds. Htn: Continue home meds. Morbid obesity with knee/shoulder/neck pain Pt was advised to lose weight. PT consult - pt has refused participation Baclofen 10mg po BID 10/18 start Gabapentin 300mg po BID Awaiting SNF but pt refuses PT Code: full. <Lauren Pate - Last Filed: 10/19/23 08:40> - Plan Pt seen and examined. I agree withe the note by the BASEBALL SCOUT> Pt is feeling better today. She did not cry this morning. Continue rocephin and clean up her meds in order to avoid polypharmacy. She was advised to lose weight. Continue other home meds. <Sean Rod - Last Filed: 10/19/23 11:43>
[2023-10-19] MEDS: GABAPENTIN 300 MG CAP PO SCH (09:09)
--- NOTE | 2023-10-20 07:29 | P.PN ---
Subjective Date of Service: 10/20/23 Primary Care Provider: Herminio Chief Complaint: ams, uti, htn, chf, pulmonary hypertension Admitted for acute cystitis, was noted to have some metabolic encephalopathy, with confusion Geodon twice daily as needed, psych consult pending Mod to max assist, unable to complete ADLs independently, snf facility pending - Physical Exam General: Alert, In no apparent distress, Oriented x3, Obese HEENT: Atraumatic, Normocephalic Neck: JVD not distended Respiratory: Normal air movement Cardiovascular: Normal pulses, Regular rate/rhythm Capillary refill: <2 Seconds Gastrointestinal: Soft and benign Musculoskeletal: Moderate generalized weakness, Other (bilateral knees) Integumentary: Other (thin skin, pedal edema, with thickening of skin) Neurological: Normal speech, Normal affect, Abnormal strength Lymphatics: No axilla or inguinal lymphadenopathy Review of Systems Per HPI Physical Examination - Vital Signs Temperature: 96.9 F Blood Pressure: 124/54 Pulse: 81 Respirations: 16 Pulse Ox (%): 95 Assessment And Plan - Plan Assessment And Plan Acute cystitis with hematuria Metabolic encephalopathy from infection process AMS: 10/18 Overmedication. adjusted home medication. Weaning ativan. 10/18 Stopped ativan today Geodon 20mg BID, pt is more calm, reasonable today Psych consult pending Rocephin started 10/14 (dose #5 today) (+ Klebsiella pneumoniae has PICC) Acute kidney injury unknown based IV fluids, Hx of A. fib: Continue telemetry and home meds. Htn: Continue home meds. Morbid obesity Chronic knee/shoulder/neck pain Pt was advised to lose weight. PT consult - pt has refused participation Baclofen 10mg po BID 10/18 start Gabapentin 300mg po BID Awaiting SNF but pt refuses PT Code: full. Disposition snf facility Discharge Plan: Shelter Critical Care: No Time Spent Managing PTS Care (In Minutes): 35
[2023-10-21 05:26] LABS: Albumin 3.1 g/dL (3.4-5.0); Anion Gap 7.1 mEq/L (5.0-15.0); Magnesium 1.9 mg/dL (1.6-2.4); Phosphorus 2.8 mg/dL (2.5-4.9); Potassium 4.1 mEq/L (3.5-5.1)
--- NOTE | 2023-10-21 08:43 | P.PN ---
Subjective Date of Service: 10/21/23 Primary Care Provider: Herminio Chief Complaint: ams, uti, htn, chf, pulmonary hypertension Admitted for acute cystitis, was noted to have some metabolic encephalopathy, with confusion Geodon twice daily as needed, psych consult pending Mod to max assist, unable to complete ADLs independently, alf facility pending [facility] - Physical Exam General: Alert, In no apparent distress, Oriented x3, Obese HEENT: Atraumatic, Normocephalic Neck: JVD not distended Respiratory: Normal air movement Cardiovascular: Normal pulses, Regular rate/rhythm Capillary refill: <2 Seconds Gastrointestinal: Soft and benign Musculoskeletal: Moderate generalized weakness, Other (bilateral knees) Integumentary: Other (thin skin, pedal edema, with thickening of skin) Neurological: Normal speech, Normal affect, Abnormal strength Lymphatics: No axilla or inguinal lymphadenopathy Review of Systems per HPI Physical Examination - Vital Signs Temperature: 97.0 F Blood Pressure: 186/98 Pulse: 82 Respirations: 18 Pulse Ox (%): 92 - Studies Microbiology Data (last 24 hrs): 10/15/23 12:15 Blood - Blood Aerobic Blood Culture - Final No growth in 5 days. 10/15/23 12:15 Blood - Blood Anaerobic Blood Culture - Final No growth in 5 days. Assessment And Plan - Plan Assessment And Plan Acute cystitis with hematuria improved Metabolic encephalopathy from infection process AMS: 10/18 Overmedication. adjusted home medication. Weaning ativan. 10/18 Stopped ativan today Geodon 20mg BID, pt is more calm, reasonable today Psych consult pending Rocephin started 10/14 (dose #5 today) (+ Klebsiella pneumoniae has PICC) Acute kidney injury unknown based gentle IV fluids, trend bun, cr Hx of A. fib: Continue telemetry and home meds. Htn: Continue home meds. Morbid obesity Chronic knee/shoulder/neck pain Pt was advised to lose weight. PT consult - pt has refused participation Baclofen 10mg po BID 10/18 start Gabapentin 300mg po BID Awaiting SNF but pt refuses PT Code: full. Disposition alf facility Discharge Plan: [facility] - Code Status/Comfort Care Code Status: Full Code Critical Care: No Time Spent Managing PTS Care (In Minutes): 35
[2023-10-21] MEDS: PANTOPRAZOLE 40MG TABLET PO SCH (08:59)
[2023-10-21] MEDS: ALPRAZOLAM 1 MG TABLET PO PRN (14:09)
[2023-10-21] MEDS: NA CHLORIDE 0.9% 1,000 ML IV SCH (17:21)
[2023-10-21] MEDS: METOPROLOL TAR 50 MG TAB PO SCH (18:16)
[2023-10-21] MEDS: HYDRALAZINE HCL 20 MG/ML VIAL IV PRN (18:17)
[2023-10-21] MEDS: LOSARTAN POTASSIUM 50 MG TABLET PO SCH (21:32)
--- NOTE | 2023-10-22 07:27 | P.DS ---
Admission Date: 10/15/23 Discharge Date: 10/22/23 Primary Care Provider: Herminio Disposition: TRANSFER TO SKILLED NURSING Reason for Admission: ams, uti, htn, chf, pulmonary hypertension Brief History of Present Illness: Mrs. Morin is a 72-year-old with a past medical history of hypertension, hyperlipidemia, CHF, arthritis, deconditioning, morbid obesity, and is generally bedbound. Her has been hospitalized, at this facility, for about a week and he is generally her caregiver. She states that sometimes she is able to stand and take a few steps with max assistance. However with her being away, she has been in the bed. She was brought to the emergency department over the weekend and diagnosed with a urinary tract infection. A Boone was placed and she was placed on Macrobid. She returned to the emergency department today with a chief complaint of dizziness, headache, confusion, and continued urinary symptoms. Laboratory evaluation reveals a white count of 11.1 with a left shift of 81.4%, Chem-7 with a minimum of abnormalities however creatinine 1.04 BUN 27, glucose 117, T. bili 1.7, alk phos 124. Lactate 1.0. Cath urine specimen is extremely turbid with trace ketones, 3+ blood, 3+ protein, 500 esterase, greater than 50 WBCs, greater than 50 RBCs, greater than 50 bacteria. This has been sent for culture. Chest x-ray shows pulmonary vascular congestion otherwise lungs are clear, heart is moderately enlarged. On my evaluation, patient is alert and oriented. She states she supposed to stay here until her gets out of the hospital. I think SNF evaluation is a good idea. Her blood pressure is 176/103, heart rate 80, respiratory rate 22, SpO2 on room air 92%. She will be admitted for further evaluation and treatment. 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 Was noted to have metabolic encephalopathy, acute cystitis with hematuria. Condition improved with IV fluids, IV antibiotics. Supportive care for metabolic encephalopathy. Patient tolerating diet, stable for discharge to home with follow-up appointment with primary care physician. Plan to transition to skilled nurse group home facility for continued care, physical therapy. PROBLEM: Metabolic encephalopathy, acute cystitis with hematuria treated with antibiotics. Rocephin started 10/14 (+ Klebsiella pneumoniae has PICC) treat 9 days completed Acute kidney injury, IV fluids, nephrology consulted, result renal ultrasound Bedbound, max assist, transition to skilled care Atrial fibrillation Hypertension Morbid obesity Chronic pain Continue home medicines as previously prescribed GOAL: Clear understanding of disease process INSTRUCTIONS: Physician Discharge Instructions: -DC IV and DC home -Follow-up with PCP in 1 to 2 weeks -Please call Dr. Mckenzie at [phone] if any questions regarding hospital stay -Please call nursing station at [phone] if any nursing or medication questions -Return to the emergency room if symptoms worsen Diet: ADA, low sodium Activity: Fall precautions Vital Signs/Physical Exam: Temp Pulse Resp BP Pulse Ox 97.4 F 66 18 148/62 H 96 10/22/23 04:00 10/22/23 04:58 10/22/23 04:00 10/22/23 04:58 10/22/23 04:00 Laboratory Data at Discharge: WBC 7.70 thou/uL (4.3-10.9) 10/18/23 03:37 Hgb 11.5 g/dL (12.0-15.0) L 10/18/23 03:37 Hct 36.2 % (36.0-45.0) 10/18/23 03:37 Plt Count 217 thou/uL (152-406) 10/18/23 03:37 PT 16.4 SECONDS (9.5-12.5) H 10/16/23 02:40 INR 1.51 10/16/23 02:40 Sodium 138 mEq/L (136-145) 10/21/23 04:35 Potassium 4.1 mEq/L (3.5-5.1) 10/21/23 04:35 BUN 26 mg/dL (7-18) H 10/21/23 04:35 Creatinine 1.03 mg/dL (0.55-1.02) H 10/21/23 04:35 Glucose 115 mg/dL (74-106) H 10/21/23 04:35 Phosphorus 2.8 mg/dL (2.5-4.9) 10/21/23 04:35 Magnesium 1.9 mg/dL (1.6-2.4) 10/21/23 04:35 Total Bilirubin 1.0 mg/dL (0.2-1.0) 10/18/23 03:37 AST 21 U/L (15-37) 10/18/23 03:37 ALT 22 U/L (13-56) 10/18/23 03:37 Alkaline Phosphatase 114 U/L (45-117) 10/18/23 03:37 Triglycerides 58 mg/dL (<150) 10/16/23 02:40 Cholesterol 135 mg/dL (<200) 10/16/23 02:40 HDL Cholesterol 61 mg/dL (40-60) H 10/16/23 02:40 Cholesterol/HDL Ratio 2.21 10/16/23 02:40 Home Medications: Acetaminophen 1 tab PO TID 08/16/21 Alprazolam [Xanax] 1 mg PO TID 08/16/21 Chlorzoxazone 1 tab PO DAILY 08/16/21 Rivaroxaban [Xarelto*] 1 tab PO DAILY 08/16/21 Sildenafil Citrate 1 tab PO TID 08/16/21 Dicyclomine [Bentyl*] 20 mg PO DAILY 10/16/23 Spironolactone [Aldactone*] 0.5 tab PO DAILY 10/16/23 Tramadol HCl [Ultram] 1 tab PO Q6H PRN 10/16/23 Followup: Tawanna Mi FNP [Primary Care Provider] - Time spent managing pt's care (in minutes): 55
--- NOTE | 2023-10-22 07:37 | P.PN ---
Subjective Date of Service: 10/22/23 Primary Care Provider: Herminio Chief Complaint: ams, uti, htn, chf, pulmonary hypertension Admitted for acute cystitis, was noted to have some metabolic encephalopathy, with confusion Geodon twice daily as needed, psych consult pending Mod to max assist, unable to complete ADLs independently, long-term facility pending [facility], renal ultrasound ordered, nephrology consult - Physical Exam General: Alert, In no apparent distress, Oriented x3, Obese HEENT: Atraumatic, Normocephalic Neck: JVD not distended Respiratory: Normal air movement Cardiovascular: Normal pulses, Regular rate/rhythm Capillary refill: <2 Seconds Gastrointestinal: Soft and benign Musculoskeletal: Moderate generalized weakness, Other (bilateral knees) Integumentary: Other (thin skin, pedal edema, with thickening of skin) Neurological: Normal speech, Normal affect, Abnormal strength Lymphatics: No axilla or inguinal lymphadenopathy Review of Systems Per HPI Physical Examination - Vital Signs Temperature: 97.4 F Blood Pressure: 148/62 Pulse: 66 Respirations: 18 Pulse Ox (%): 96 Assessment And Plan - Plan Assessment And Plan Acute cystitis with hematuria improved Metabolic encephalopathy from infection process AMS: 10/18 Overmedication. adjusted home medication. Weaning ativan. 10/18 Stopped ativan today Geodon 20mg BID, pt is more calm, reasonable today Psych consult pending Rocephin started 10/14 (dose #5 today) (+ Klebsiella pneumoniae has PICC) Acute kidney injury unknown based gentle IV fluids, trend bun, cr Nephrology consulted, Renal ultrasound ordered Hx of A. fib: Continue telemetry and home meds. Htn: Continue home meds. Morbid obesity Chronic knee/shoulder/neck pain Pt was advised to lose weight. PT consult - pt has refused participation Baclofen 10mg po BID 10/18 start Gabapentin 300mg po BID Awaiting SNF but pt refuses PT Code: full. Disposition long-term facility Discharge Plan: Assisted - Code Status/Comfort Care Code Status: Full Code Critical Care: No Time Spent Managing PTS Care (In Minutes): 35
--- NOTE | 2023-10-22 08:24 | RAD REPORT ---
EXAM DESCRIPTION: US - Renal Ultrasound-Complete - 10/22/2023 8:06 am CLINICAL HISTORY: Chronic UTI, [facility] COMPARISON: Abdomen Pelvis Wo Contrast dated 08/15/2021 TECHNIQUE: Sonographic grayscale and color flow images of the kidneys were obtained. FINDINGS: Poor penetration limits evaluation. The right kidney measures 10.1 cm in long axis. Normal size and morphology to the extent evaluated, a lthough evaluation of the lower pole is limited by over shadowing bowel. No hydronephrosis, discrete focal mass, or echogenic calculi. The left kidney was not well visualized due to over shadowing ribs and bowel. IMPRESSION: No discrete abnormalities of the right kidney to the extent evaluated. The left kidney was not well visualized due to over shadowing ribs and bowel.
--- NOTE | 2023-10-22 08:32 | P.CNS ---
Date of Consult: 10/22/23 Reason for Consult: LILLIAM Requesting Physician: Tori Mckenzie Primary Care Provider: Herminio Chief Complaint: ams, uti, htn, chf, pulmonary hypertension History of Present Illness: Mrs. Morin is a 72-year-old with a past medical history of hypertension, hyperlipidemia, CHF, arthritis, deconditioning, morbid obesity, and is generally bedbound. Her has been hospitalized, at this facility, for about a week and he is generally her caregiver. She states that sometimes she is able to stand and take a few steps with max assistance. However with her being away, she has been in the bed. She was brought to the emergency department over the weekend and diagnosed with a urinary tract infection. A Boone was placed and she was placed on Macrobid. She returned to the emergency department today with a chief complaint of dizziness, headache, confusion, and continued urinary symptoms. Laboratory evaluation reveals a white count of 11.1 with a left shift of 81.4%, Chem-7 with a minimum of abnormalities however creatinine 1.04 BUN 27, glucose 117, T. bili 1.7, alk phos 124. Lactate 1.0. Cath urine specimen is extremely turbid with trace ketones, 3+ blood, 3+ protein, 500 esterase, greater than 50 WBCs, greater than 50 RBCs, greater than 50 bacteria. This has been sent for culture. Chest x-ray shows pulmonary vascular congestion otherwise lungs are clear, heart is moderately enlarged. On my evaluation, patient is alert and oriented. She states she supposed to stay here until her gets out of the hospital. I think SNF evaluation is a good idea. Her blood pressure is 176/103, heart rate 80, respiratory rate 22, SpO2 on room air 92%. She will be admitted for further evaluation and treatment. [id number] 11:28 This 72 yrs old Female presents to ER via EMS with complaints of General Weakness, sp3 Dizziness. 11:28 72-year-old female well-known to the ED with history of atrial fibrillation on Xarelto, sp3 pulm hypertension, rheumatoid arthritis, hypertension, anxiety, obesity, bedbound now presents ED via EMS for chief complaint generalized weakness and confusion. EMS was activated by son who is in healthcare according to patient. Patient denies any fever, pain, shortness of breath, rash or any other changes/symptoms on ROS at this time.. Allergies codeine Allergy (Verified 09/18/19 21:40) Itching fentanyl Allergy (Verified 05/22/21 18:09) Hives/Rash morphine Allergy (Verified 05/10/20 14:39) Hives/Rash sulfamethoxazole [From Bactrim] Allergy (Verified 09/18/19 21:40) Hives/Rash trimethoprim [From Bactrim] Allergy (Verified 09/18/19 21:40) Hives/Rash Home medications list reviewed: Yes Home Medications: Acetaminophen 1 tab PO TID 08/16/21 Alprazolam [Xanax] 1 mg PO TID 08/16/21 Chlorzoxazone 1 tab PO DAILY 08/16/21 Rivaroxaban [Xarelto*] 1 tab PO DAILY 08/16/21 Sildenafil Citrate 1 tab PO TID 08/16/21 Dicyclomine [Bentyl*] 20 mg PO DAILY 10/16/23 Spironolactone [Aldactone*] 0.5 tab PO DAILY 10/16/23 Tramadol HCl [Ultram] 1 tab PO Q6H PRN 10/16/23 - Past Medical/Surgical History Diabetic: No -: Pulmonary hypertension -: Atrial fibrillation -: debility -: anxiety -: chronic pain -: HTN -: Rheumatoid Arthritis -: Obesity -: CHF -: L shoulder august 2019 -: hysterectomy -: Right shoulder injury -: Fx left elbow with surgery Psychosocial/ Personal History: Patient lives at home with her - Social History Smoking Status: Unknown if ever smoked Alcohol use: No CD- Drugs: No Caffeine use: No Place of Residence: Home Review of Systems 10-point ROS is otherwise unremarkable General: Weakness, Malaise Respiratory: SOB with Excertion Cardiovascular: Edema Physical Examination Temp Pulse Resp BP Pulse Ox 97.4 F 66 18 148/62 H 96 10/22/23 07:37 10/22/23 07:37 10/22/23 07:37 10/22/23 07:37 10/22/23 07:37 General: In no apparent distress, Oriented x3, Oriented x1 HEENT: Atraumatic Neck: Supple Respiratory: Normal air movement Cardiovascular: Regular rate/rhythm, Edema Gastrointestinal: Soft and benign, Non-distended Musculoskeletal: No clubbing, No contractures, Other (Right hand deformity) Integumentary: No rashes, No cyanosis Neurological: Normal speech Urinary: Boone catheter Blood work reviewed in the chart. Imagings Data: [id number] EXAM DESCRIPTION: US - Renal Ultrasound-Complete - 10/22/2023 8:06 am CLINICAL HISTORY: Chronic UTI, [facility] COMPARISON: Abdomen Pelvis Wo Contrast dated 08/15/2021 TECHNIQUE: Sonographic grayscale and color flow images of the kidneys were obtained. FINDINGS: Poor penetration limits evaluation. The right kidney measures 10.1 cm in long axis. Normal size and morphology to the extent evaluated, although evaluation of the lower pole is limited by over shadowing bowel. No hydronephrosis, discrete focal mass, or echogenic calculi. The left kidney was not well visualized due to over shadowing ribs and bowel. IMPRESSION: No discrete abnormalities of the right kidney to the extent evaluated. The left kidney was not well visualized due to over shadowing ribs and bowel. [id number] EXAM DESCRIPTION: RADChest Single View10/16/2023 5:52 pm CLINICAL HISTORY: post PICC placement COMPARISON: Chest Single View dated 10/15/2023; Chest Single View dated 08/23/2021; Chest Single View dated 08/23/2021; Chest Single View dated 08/15/2021 TECHNIQUE: Portable AP view of the chest. FINDINGS: Right arm PICC has been placed with catheter tip projecting over the distal SVC. The lungs are clear. No pneumothorax or effusion. Stable cardiomegaly with central interstitial prominence. Mediastinal contours are unremarkable. IMPRESSION: Stable right arm PICC positioning. Stable cardiomegaly. No acute pulmonary process. [facility] LEFT VENTRICULAR WALL MOTION: MODERATE GLOBAL HYPOKINESIS. DOPPLER/COLOR FLOW: MILD TRICUSPID REGURGITATION SEVERE PULMONARY HYPERTENSION. COMMENTS: SEVERE PULMONARY HYPERTENSION 89mmHg. MODERATE GLOBAL HYPOKINESIS 35- 40%. LEFT ATRIAL ENLARGEMENT. RIGHT ATRIAL ENLARGEMENT. Conclusions/Impression: Stage I LILLIAM in the setting of CRS, waxing and waning Proteinuria -No NSAIDs Alkalosis -Continue Spironolactone HTN with CHF -Continue Losartan -Continue Metoprolol Systolic CHF, chronic Severe Pulmonary HTN -Continue Lasix & Spironolactone Hypoalbuminemia -Consider protein supplementation Anemia in chronic illness -Monitor H&H Acute Infective Cystitis with Hematuria -Continue Abx Hospitalist and ER notes reviewed Thank you kindly for the consultation
[2023-10-22 09:13] LABS: Albumin 2.9 g/dL (3.4-5.0); Anion Gap 2.8 mEq/L (5.0-15.0); Phosphorus 3.5 mg/dL (2.5-4.9); Potassium 3.8 mEq/L (3.5-5.1)
[2023-10-23 03:51] LABS: Absolute Eosinophils 0.4 K/uL (0-0.5); Absolute Lymphocytes (CBC) 1.3 K/uL (0.7-4.9); Absolute Monocytes 1.1 K/uL (0.1-1.3); Absolute Neutrophil 6.3 K/uL (1.8-8.0); Basophils % 0.5 % (0-1.3); Eosinophils % 4.2 % (0-4.4); Hematocrit 34.7 % (36.0-45.0); Hemoglobin 10.8 g/dL (12.0-15.0); Lymphocytes % 14.2 % (15.3-44.8); MCH 27.8 pg (27.0-35.0); MCHC 31.2 g/dL (32.0-36.0); MCV 88.9 fL (80-100); MPV 8.7 fL (7.6-11.3); Monocytes % 11.7 % (3.3-12.3); Neutrophils % 69.4 % (41.7-73.7); Platelets 250 thou/uL (152-406); Red Cell Distribution Width 15.4 % (12.1-15.2)
[2023-10-23 04:03] LABS: Albumin 2.7 g/dL (3.4-5.0); Anion Gap 8.1 mEq/L (5.0-15.0); Magnesium 1.9 mg/dL (1.6-2.4); Phosphorus 4.8 mg/dL (2.5-4.9); Potassium 4.1 mEq/L (3.5-5.1); Uric Acid 9.2 mg/dL (2.6-6.0)
--- NOTE | 2023-10-23 10:34 | P.PN ---
Date of Service: 10/23/23 Vital Signs Temp Pulse Resp BP Pulse Ox 97.1 F 48 L 19 107/53 L 96 10/23/23 08:00 10/23/23 08:00 10/23/23 08:00 10/23/23 08:00 10/23/23 08:00 Medications Alprazolam (Alprazolam 1 Mg Tablet) 1 mg PO TID PRN PRN Reason: ANXIETY Last Admin: 10/22/23 20:23 Dose: 1 mg Aspirin (Aspirin Ec 81 Mg Tab) 81 mg PO DAILY [facility] Last Admin: 10/23/23 10:18 Dose: 81 mg Baclofen (Baclofen 10 Mg Tab) 10 mg PO BID [facility] Last Admin: 10/23/23 10:18 Dose: 10 mg Furosemide (Furosemide 20 Mg/ 2ml Vial) 20 mg IV DAILY [facility] Last Admin: 10/23/23 10:20 Dose: 20 mg Gabapentin (Gabapentin 300 Mg Cap) 300 mg PO BID [facility] Last Admin: 10/23/23 10:20 Dose: 300 mg Hydralazine HCl (Hydralazine Hcl 20 Mg/Ml Vial) 10 mg IV Q6HP PRN PRN Reason: FOR SBP>160 OR DBP>100 [facility] Last Admin: 10/21/23 18:17 Dose: 10 mg Ceftriaxone Sodium 1,000 mg/ (Sodium Chloride) 50 mls @ 100 mls/hr IVPB DAILY [facility]; Protocol Last Admin: 10/23/23 10:20 Dose: 50 mls Metoprolol Tartrate (Metoprolol Tar 50 Mg Tab) 25 mg PO BID 6AM 6PM [facility] Nystatin (Nystatin Pwdr 800180 Unit/Gm) 1 appl TOP BID [facility] Last Admin: 10/23/23 10:26 Dose: 1 appl Pantoprazole Sodium (Pantoprazole 40mg Tablet) 40 mg PO ACB [facility] Last Admin: 10/23/23 10:19 Dose: 40 mg Rivaroxaban (Rivaroxaban 10 Mg Tablet) 10 mg PO DAILY [facility] Last Admin: 10/23/23 10:19 Dose: 10 mg Sildenafil Citrate (Sildenafil Citrate 20 Mg Tablet) 20 mg PO TID [facility] Last Admin: 10/23/23 10:20 Dose: 20 mg Spironolactone (Spironolactone 25 Mg Tablet) 25 mg PO DAILY [facility] Last Admin: 10/23/23 10:19 Dose: 25 mg Ziprasidone (Ziprasidone 20 Mg Cap) 20 mg PO BID [facility] Last Admin: 10/19/23 09:10 Dose: 20 mg Microbiology Results 10/15/23 12:15 Blood - Blood Aerobic Blood Culture - Final No growth in 5 days. 10/15/23 12:15 Blood - Blood Anaerobic Blood Culture - Final No growth in 5 days. 10/15/23 12:30 Clean Catch Urine [place] Count - Final >100,000 CFU/ML. 10/15/23 12:30 Clean Catch Urine - Final Klebsiella Pneumoniae Assessment/ Plan: Nephrology Progress Note No Dyspnea No Chest Pain Very anxious this morning. Complaining of body buzzing and diffuse weakness. No Acute Events Overnight Vital Signs, Medications, Blood Work, and Imaging reviewed in the chart General: In no apparent distress, Oriented x3, Oriented x1 HEENT: Atraumatic Neck: Supple Respiratory: Normal air movement Cardiovascular: Regular rate/rhythm, Edema Gastrointestinal: Soft and benign, Non-distended Musculoskeletal: No clubbing, No contractures, Other (Right hand deformity) Integumentary: No rashes, No cyanosis Neurological: Normal speech Urinary: Boone catheter Blood work reviewed in the chart. Imagings Data: [id number] EXAM DESCRIPTION: US - Renal Ultrasound-Complete - 10/22/2023 8:06 am CLINICAL HISTORY: Chronic UTI, [facility] COMPARISON: Abdomen Pelvis Wo Contrast dated 08/15/2021 TECHNIQUE: Sonographic grayscale and color flow images of the kidneys were obtained. FINDINGS: Poor penetration limits evaluation. The right kidney measures 10.1 cm in long axis. Normal size and morphology to the extent evaluated, although evaluation of the lower pole is limited by over shadowing bowel. No hydronephrosis, discrete focal mass, or echogenic calculi. The left kidney was not well visualized due to over shadowing ribs and bowel. IMPRESSION: No discrete abnormalities of the right kidney to the extent evaluated. The left kidney was not well visualized due to over shadowing ribs and bowel. [id number] EXAM DESCRIPTION: RADChest Single View10/16/2023 5:52 pm CLINICAL HISTORY: post PICC placement COMPARISON: Chest Single View dated 10/15/2023; Chest Single View dated 08/23/2021; Chest Single View dated 08/23/2021; Chest Single View dated 08/15/2021 TECHNIQUE: Portable AP view of the chest. FINDINGS: Right arm PICC has been placed with catheter tip projecting over the distal SVC. The lungs are clear. No pneumothorax or effusion. Stable cardiomegaly with central interstitial prominence. Mediastinal contours are unremarkable. IMPRESSION: Stable right arm PICC positioning. Stable cardiomegaly. No acute pulmonary process. [facility] LEFT VENTRICULAR WALL MOTION: MODERATE GLOBAL HYPOKINESIS. DOPPLER/COLOR FLOW: MILD TRICUSPID REGURGITATION SEVERE PULMONARY HYPERTENSION. COMMENTS: SEVERE PULMONARY HYPERTENSION 89mmHg. MODERATE GLOBAL HYPOKINESIS 35- 40%. LEFT ATRIAL ENLARGEMENT. RIGHT ATRIAL ENLARGEMENT. Conclusions/Impression: Stage II LILLIAM in the setting of CRS complicated by hypotension Proteinuria -No NSAIDs -Reduce antihypertensives Alkalosis -Continue Spironolactone HTN with CHF -Discontinue Losartan due to hypotension -Reduce Metoprolol 25mg BID due to bradycardia Systolic CHF, chronic Severe Pulmonary HTN -Continue Lasix & Spironolactone Hypoalbuminemia -Consider protein supplementation Anemia in chronic illness -Monitor H&H Acute Infective Cystitis with Hematuria -Continue Abx Hospitalist notes reviewed Case reviewed with hospitalist team
--- NOTE | 2023-10-23 13:19 | P.PN ---
Subjective Date of Service: 10/23/23 Primary Care Provider: Herminio Chief Complaint: ams, uti, htn, chf, pulmonary hypertension Admitted for acute cystitis, was noted to have some metabolic encephalopathy, with confusion Geodon twice daily as needed, psych consult pending Mod to max assist, unable to complete ADLs independently, longterm facility pending [facility]IAM, renal ultrasound ordered, nephrology consult Bradycardia, metoprolol lowered, mild hypotension, - Physical Exam General: Alert, In no apparent distress, Oriented x3, Obese HEENT: Atraumatic, Normocephalic Neck: JVD not distended Respiratory: Normal air movement Cardiovascular: Normal pulses, Regular rate/rhythm Capillary refill: <2 Seconds Gastrointestinal: Soft and benign Musculoskeletal: Moderate generalized weakness, Other (bilateral knees) Integumentary: Other (thin skin, pedal edema, with thickening of skin) Neurological: Normal speech, Normal affect, Abnormal strength Lymphatics: No axilla or inguinal lymphadenopathy Review of Systems Per HPI Physical Examination - Vital Signs Temperature: 97.1 F Blood Pressure: 107/53 Pulse: 48 Respirations: 19 Pulse Ox (%): 96 Assessment And Plan - Plan Assessment And Plan Acute cystitis with hematuria improved Metabolic encephalopathy from infection process AMS: 10/18 Overmedication. adjusted home medication. Weaning ativan. 10/18 Stopped ativan today Geodon 20mg BID, pt is more calm, reasonable today Psych consult pending Rocephin started 10/14 (dose #5 today) (+ Klebsiella pneumoniae has PICC) Acute kidney injury unknown based gentle IV fluids, trend bun, cr Nephrology consulted, 10/21 Renal ultrasound ordered IMPRESSION: No discrete abnormalities of the right kidney to the extent evaluated. The left kidney was not well visualized due to over shadowing ribs and bowel. Elevated BNP Essential Htn: Atrial fibrillation with bradycardia On metoprolol, metoprolol low-dose dose lowered due to HR in 40's-50's Continue home meds. BNP 5587 Lasix changed from 20 daily to 40 daily Initial troponin normal at 48.2 10/22 Echo ordered 10/22 cardiology consulted to eval CHF, afib w bradiacardia Morbid obesity Chronic knee/shoulder/neck pain Pt was advised to lose weight. PT consult - pt has refused participation Baclofen 10mg po BID 10/18 start Gabapentin 300mg po BID Awaiting SNF but pt refuses PT Code: full. Disposition longterm facility Discharge Plan: [facility] - Code Status/Comfort Care Code Status: Full Code Critical Care: No Time Spent Managing PTS Care (In Minutes): 35
[2023-10-23] MEDS: FUROSEMIDE 40 MG/4 ML VIAL IV SCH (13:30)
--- NOTE | 2023-10-23 16:38 | CON ---
Date of Consultation: 10/23/2023 Reason For Consultation: AFib with the slow ventricular rate. History Of Present Illness: This is a 72-year-old female, apparently was hospitalized due to an alte red mental status and urinary tract infection. She has history of atrial fibrillation and she was on metoprolol. Heart rate was running in the low 40s, asymptomatic. Toprol dose was reduced and heart rate is better. Patient has no symptoms from that regard of dizziness or syncope. Past Medical History: AFib, diastolic heart failure, hypertension, obesity. Medications: Refer to reconciliation sheet for detailed list. Allergies: CODEINE, FENTANYL, MORPHINE, BACTRIM. Family History: No premature coronary artery disease or cancer. Social History: Does not smoke or drink. Does not use any drugs. Review of Systems: All systems reviewed and they were negative except as mentioned in the HPI. Physical Examination: Vital Signs: Reviewed. Head and Neck: Pupils are equal, reactive to light. Intact eye movements. No JVD. No cervical lym phadenopathy. Neck is supple. Thyroid is not enlarged. Lungs: Clear to auscultation bilaterally with decreased breathing sounds. Heart: Irregularly irregular. No extra sounds. Abdomen: Soft, nontender. Bowel sounds positive. No organomegaly. No masses or hernia. No rigidi ty or rebound. Extremities: No clubbing or cyanosis. Positive edema. Neuro: Lethargic and not responding very well but moving all extremities. Lymph Nodes: No cervical or axillary lymphadenopathy. Investigations: BUN 49, creatinine 2.26, and hemoglobin is 10.8. Assessment And Plan: 1.Atrial fibrillation with a slow ventricular rate. At this point, I do not see any symptoms. Meto prolol was decreased appropriately to 25 mg twice a day. Monitor heart rate and plans to decrease fu rther, if needed. 2.History of congestive heart failure. No active fluid overload symptoms and there is a significant rise in her BUN and creatinine. Recommend to hold the Lasix for now. We will obtain an echo and re assess labs in the morning. 3.Urinary tract infection, on antibiotics. SR/MODL Voice ID: [id number] Report ID: [id number]
[2023-10-23] MEDS: METOPROLOL TAR 25 MG TAB PO SCH (18:00)
[2023-10-23] MEDS: ATROPINE SULFATE 1 MG/ML INJ IV ONE (21:50)
[2023-10-23] MEDS: NA CHLORIDE 0.9% 1,000 ML ONE (21:50)
[2023-10-23] MEDS: DOPAMINE/D5W 400 MG/250 ML BAG IV SCH (21:52)
[2023-10-23 22:14] LABS: Absolute Basophils 0.1 K/uL (0-0.5); Absolute Eosinophils 0.4 K/uL (0-0.5); Absolute Lymphocytes (CBC) 1.3 K/uL (0.7-4.9); Absolute Neutrophil 5.5 K/uL (1.8-8.0); Eosinophils % 4.8 % (0-4.4); MCH 28.5 pg (27.0-35.0); MCHC 32.4 g/dL (32.0-36.0); MPV 7.9 fL (7.6-11.3); Monocytes % 11.6 % (3.3-12.3); Neutrophils % 66.6 % (41.7-73.7); Nucleated Red Blood Cells % 0.1 % (0-0); Platelets 242 thou/uL (152-406); RBC Red Blood Cell Count 3.86 M/uL (3.86-4.86); Red Cell Distribution Width 15.3 % (12.1-15.2)
[2023-10-23 22:36] LABS: Albumin 2.7 g/dL (3.4-5.0); Albumin/Globulin Ratio 0.8 (1.1-1.8); Bilirubin Total 0.4 mg/dL (0.2-1.0); Globulin 3.5 g/dL (2.3-3.5); Phosphorus 5.6 mg/dL (2.5-4.9); Protein, Total 6.2 g/dL (6.4-8.2); Troponin High Sensitivity 48.1 pg/mL (<58.9)
--- NOTE | 2023-10-23 22:48 | P.PN ---
Date of Service: 10/23/23 Rapid response code note Rapid response was called as patient was drowsy and not arousable Patient was not responding to sternal rubs as well Heart rate was noted to be in 30s with blood pressure low 60/32 Gave a dose of atropine 0.5 mg IV one-time Patient responded to the heart rate of 50 and went back Blood pressure still was low Give a bolus of fluid for 500 mL Patient was started on dopamine drip ABG obtained which showed hypercapnia Ordered BiPAP Patient was moved to ICU for further management Electrolytes monitored Discussed with family
[2023-10-23 23:42] LABS: Arterial Blood Carboxyhemoglob 1.6 % (0-1.5); Blood Gas Oxyhemoglobin 93.8 % (94-97); Blood Gas THB 11.1 g/dl (12-18); Blood O2 Saturation 96.2 % (92-98.5)
[2023-10-24] MEDS: DOPAMINE/D5W 400 MG/250 ML BAG IV ONE ×2 (07:42→21:45)
[2023-10-24] MEDS: ALBUMIN HUMAN 25% 50 ML IV ONE (09:55)
[2023-10-24] MEDS: NA CHLORIDE 0.9% 250 ML ONE (09:56)
[2023-10-24 10:02] LABS: Albumin 2.9 g/dL (3.4-5.0); Albumin/Globulin Ratio 0.7 (1.1-1.8); Bilirubin Total 0.6 mg/dL (0.2-1.0); Globulin 4.2 g/dL (2.3-3.5); Protein, Total 7.1 g/dL (6.4-8.2); Uric Acid 9.6 mg/dL (2.6-6.0)
[2023-10-24] MEDS: NA CHLORIDE 0.9% 1,000 ML ONE (10:27)
[2023-10-24] MEDS: NA CHLORIDE 0.9% 1,000 ML IV SCH (11:00)
[2023-10-24] MEDS ORDERED: ATROPINE SULFATE 1 MG/ML INJ IV ONE (13:21)
[2023-10-24] MEDS ORDERED: DOPAMINE 400 MG/250 ML D5W PREMIX IV ONE (13:25)
--- NOTE | 2023-10-24 14:36 | EKG ---
Test Date: 2023-10-23 Test Time: 21:56:37 Hospital Manager: ANTONETTE MEASUREMENT RESULTS: Intervals: Rate: 59 NE: QRSD: 88 QT: 476 QTc: 471 [place]: P: NE: QRS: 75 T: 64 INTERPRETIVE STATEMENTS: Atrial fibrillation with slow ventricular response RSR' or QR pattern in V1 suggests right ventricular conduction delay Nonspecific T wave abnormality, probably digitalis effect Prolonged QT Abnormal ECG Compared to ECG 10/23/2023 14:04:44 RSR' in V1 or V2 now present Prolonged QT interval now present Incomplete right bundle-branch block no longer present T-wave abnormality still present Electronically Signed On 10-24-23 14:35:15 CDT by Willie Vieira
--- NOTE | 2023-10-24 14:38 | EKG ---
Test Date: 2023-10-23 Test Time: 14:04:44 Concrete Spreader: HENNY MEASUREMENT RESULTS: Intervals: Rate: 48 [place]: QRSD: 92 QT: 524 QTc: 468 [place]: P: CA: QRS: 77 T: 77 INTERPRETIVE STATEMENTS: Atrial fibrillation with slow ventricular response Incomplete right bundle branch block Nonspecific T wave abnormality, probably digitalis effect Abnormal ECG Compared to ECG 10/15/2023 11:52:23 Incomplete right bundle-branch block now present Prolonged QT interval no longer present T-wave abnormality still present Electronically Signed On 10-24-23 14:35:49 CDT by Willie Vieira
[2023-10-24 18:58] LABS: Arterial Blood Carboxyhemoglob 1.1 % (0-1.5); Blood Gas Oxyhemoglobin 96.9 % (94-97)
[2023-10-24 19:00] LABS: Blood Gas THB 12.5 g/dl (12-18)
--- NOTE | 2023-10-24 19:18 | P.PN ---
Nephrology Progress Note Overnight events noted, pt in the ICU, off BIPAP currently, non tachypnec, no resp distress, awake, confused, anxious. On Dopamine, HR < 60, BP stable, s/p fluid/albumin boluses per DRUM BARKER OPERATOR. UOP has picked up Vital Signs, Medications, Blood Work, and Imaging reviewed in the chart General: NAD, non tachypnec HEENT: Atraumatic, NC Neck: Supple Respiratory: b/l air entry, poor, diminished at bases Cardiovascular: Marcus, difficult to appreciate murmurs Gastrointestinal: Soft, obese, NT Musculoskeletal: Some peripheral edema, shins mildly tender Integumentary: No rashes, Neurological: Normal speech,awake, confused Urinary: Boone catheter Blood work reviewed in the chart. Imagings Data: [id number] EXAM DESCRIPTION: US - Renal Ultrasound-Complete - 10/22/2023 8:06 am CLINICAL HISTORY: Chronic UTI, [facility] COMPARISON: Abdomen Pelvis Wo Contrast dated 08/15/2021 TECHNIQUE: Sonographic grayscale and color flow images of the kidneys were obtained. FINDINGS: Poor penetration limits evaluation. The right kidney measures 10.1 cm in long axis. Normal size and morphology to the extent evaluated, although evaluation of the lower pole is limited by over shadowing bowel. No hydronephrosis, discrete focal mass, or echogenic calculi. The left kidney was not well visualized due to over shadowing ribs and bowel. IMPRESSION: No discrete abnormalities of the right kidney to the extent evaluated. The left kidney was not well visualized due to over shadowing ribs and bowel. [id number] [facility] CLINICAL HISTORY: post PICC placement COMPARISON: Chest Single View dated 10/15/2023; Chest Single View dated 08/23/2021; Chest Single View dated 08/23/2021; Chest Single View dated 08/15/2021 TECHNIQUE: Portable AP view of the chest. FINDINGS: Right arm PICC has been placed with catheter tip projecting over the distal SVC. The lungs are clear. No pneumothorax or effusion. Stable cardiomegaly with central interstitial prominence. Mediastinal contours are un remarkable. IMPRESSION: Stable right arm PICC positioning. Stable cardiomegaly. No acute pulmonary process. [facility] LEFT VENTRICULAR WALL MOTION: MODERATE GLOBAL HYPOKINESIS. DOPPLER/COLOR FLOW: MILD TRICUSPID REGURGITATION SEVERE PULMONARY HYPERTENSION. COMMENTS: SEVERE PULMONARY HYPERTENSION 89mmHg. MODERATE GLOBAL HYPOKINESIS 35- 40%. LEFT ATRIAL ENLARGEMENT. RIGHT ATRIAL ENLARGEMENT. Conclusions/Impression: Stage II LILLIAM in the setting of hemodynamic events with hypotension, bradycardia, oliguric for a period but UOP has picked up since -Cr level has hopefully peaked, cont to monitor closely, repeat labs this afternoon Hypotension in the setting of Afib with slow ventricular rate response, other -Improved, on low dose Dopamine, monitor closely, hold any MARGY inhibitors Acute hypercarbic resp failure -CXR with infiltrates, hold off on further fluid admin, hemodynamics have stabilized, cont BIPAP support CHF unspecified -Diuretics it appear were paused, will re-assess and resume as mentioned above. F/u Cardiology input, romi
--- NOTE | 2023-10-24 20:00 | PN ---
Date of Progress Note: 10/24/2023 Subjective: Seen at bedside. The patient was moved to ICU due to significant hypotension. She was on Lasix yesterday, which I discontinued because she was dehydrated and went into acute renal failure . She received a small amount of fluids and her creatinine started to improve. Her blood pressure i s stabilizing and she is on low-dose dopamine. Review of Systems: She does not have any chest pain, shortness of breath, orthopnea, or cough. No nausea, vomiting, silver rrhea. All other systems reviewed, they are negative. Physical Examination: Vital Signs: Reviewed. Head and Neck: Pupils are equal, reactive to light. Intact eye movements. No JVD. No cervical lym phadenopathy. Neck is supple. Thyroid is not enlarged. Lungs: Clear to auscultation bilaterally. No rhonchi, wheezing, or crackles. No accessory muscle u se. Heart: Irregularly irregular. No extra sounds. Abdomen: Soft, nontender. Bowel sounds positive. No organomegaly. No masses or hernia. No rigidi ty or rebound. Extremities: No edema, clubbing, or cyanosis. Intact pulses. Skin: No rash or nodule. Neurologic: Alert, awake, oriented x3. No acute focal deficits appreciated. Investigations: BUN is 58, creatinine 2.73. Assessment And Recommendations: 1.Acute renal failure due to dehydration off Lasix and off the Aldactone now. Monitor BUN, creatini ne, and electrolytes and also she has diastolic heart failure, so her fluid status needs to be monito red very closely. She received a small bolus of normal saline yesterday and she is doing better. 2.Hypotension due to dehydration and this is improving now. Her blood pressure is okay. I recommen d to taper off the dopamine slowly. 3.Atrial fibrillation with slow ventricular response, asymptomatic with that. I will continue metop rolol, however, hold it off for now until her blood pressure stabilizes and then to start at 12.5 mg twice a day and continue Xarelto. 4.Acute renal failure. Plan as above. She is improving. SR/MODL Voice ID: [id number] Report ID: [id number]
--- NOTE | 2023-10-24 20:24 | RAD REPORT ---
EXAM DESCRIPTION: Chest Single View CLINICAL HISTORY: Rapid response COMPARISON: None TECHNIQUE: Single AP view of the chest. FINDINGS: Right upper extremity PICC tip likely in the SVC. Lung volumes adequate. Cardiac silhouette is enlarged. No pneumothorax. No large pleural effusion. Mild bilateral interstitial thickening. No focal consolidation. No acute bony finding. IMPRESSION: 1. Mild bilateral interstitial thickening. No focal consolidation. 2. Enlarged cardiac silhouette. Electronically signed by: Rani Burgos MD 10/23/2023 11:53 PM CDT Due to temporary technical issues with the PACS/Fluency reporting system, reports are being signed by the in house radiologists without review as a courtesy to insure prompt reporting. The interpreting radiologist is fully responsible for the content of the report.
[2023-10-24 21:54] LABS: Albumin 3.1 g/dL (3.4-5.0); Anion Gap 6.8 mEq/L (5.0-15.0); Phosphorus 4.3 mg/dL (2.5-4.9); Potassium 3.8 mEq/L (3.5-5.1)
[2023-10-24 22:02] LABS: Anion Gap 8.8 mEq/L (5.0-15.0); Potassium 3.8 mEq/L (3.5-5.1); Thyroid Stimulating Hormone 0.142 uIU/mL (0.358-3.740)
[2023-10-24] MEDS: LORazepam 2 MG/ML VIAL IV ONE (22:12)
[2023-10-24] MEDS: QUETIAPINE 25 MG TAB PO ONE (22:12)
[2023-10-24] MEDS: KCL 20 MEQ/100 mL IVPB 20 MEQ/100 ML BAG IV ONE (22:32)
--- NOTE | 2023-10-24 22:43 | P.PN ---
Date of Service: 10/24/23 Subjective Patient denies any new complaints. Patient feeling better and renal function has improved. Neurologic status is improved and stable Physical Examination - Vital Signs reviewed - Physical Exam General: Alert, In no apparent distress, Oriented x1-2, pleasantly confused; Obese Respiratory: Clear bilaterally Cardiovascular: Regular rate/rhythm Gastrointestinal: Soft and benign Musculoskeletal: Moderate generalized weakness, Other (bilateral knees) Integumentary: Other (thin skin, pedal edema, with thickening of skin) Neurological: generalized weakness; upper extremity weakness Assessment And Plan 1. Urinary tract infection/toxic encephalopathy -continue with IV antibiotics and monitor neurologic status; clinically, patient is doing well. Patient is on Seroquel. Continue with Seroquel at this time. 2. Acute kidney injury -Renal function has improved; nephrology consultation appreciated. 3. History of atrial fibrillation - continue medication for rate control rate remains controlled; Continue with anticoagulation 4. History of hypertension -strict blood pressure control 5. History of morbid obesity - long-term morbid obesity; patient not really able to make decisions to help with her weight loss. Her likelihood the weight loss is very low at this stage in her life. Long-term prognosis remains very poor. 6. History of osteoarthritis -Continue with pain control 7. History of dementia with behavioral disturbances - continue with medication for mood stabilizing-Seroquel
[2023-10-24] MEDS: NA CHLORIDE 0.9% 250 ML IV ONE (23:10)
[2023-10-25 05:04] LABS: Absolute Eosinophils 0.4 K/uL (0-0.5); Absolute Monocytes 0.8 K/uL (0.1-1.3); Absolute Neutrophil 6.1 K/uL (1.8-8.0); Basophils % 0.5 % (0-1.3); Eosinophils % 4.3 % (0-4.4); Hematocrit 34.4 % (36.0-45.0); Hemoglobin 11.3 g/dL (12.0-15.0); Lymphocytes % 12.2 % (15.3-44.8); MCH 28.5 pg (27.0-35.0); MCHC 32.8 g/dL (32.0-36.0); MCV 86.8 fL (80-100); MPV 7.9 fL (7.6-11.3); Monocytes % 9.3 % (3.3-12.3); Neutrophils % 73.7 % (41.7-73.7); Platelets 293 thou/uL (152-406); RBC Red Blood Cell Count 3.96 M/uL (3.86-4.86); Red Cell Distribution Width 15.2 % (12.1-15.2)
[2023-10-25 05:17] LABS: Magnesium 2.1 mg/dL (1.6-2.4); Phosphorus 4.3 mg/dL (2.5-4.9)
[2023-10-25] MEDS: DOPAMINE/D5W 400 MG/250 ML BAG IV ONE (11:19)
[2023-10-25] MEDS: NA CHLORIDE 0.9% 250 ML IV ONE (13:32)
[2023-10-25] MEDS: HYDROCORTISONE SUC 100 MG INJ IV ONE (13:32)
--- NOTE | 2023-10-25 14:18 | PN ---
Date of Progress Note: 10/25/2023 Subjective: The patient seen in intensive care unit in room 3A, discussed with hospitalist, Dr. Ramu Mckenzie, as well. The patient is alert, awake, able to answer some questions. She does not seem t o be a good historian. Gets confused at times. Does know she is in the hospital and states she is f eeling comfortable. Denies any new issues. Objective: Vital Signs: Stable. Blood pressure is running in the 110-130 range. Last blood pressu re was 119 systolic over 59, pulse is about 70 range currently, respirations around 14 and comfortabl e and O2 sats are 96%. The patient is on 2 L nasal cannula and her O2 sats are about 96% to 99%. Lungs: Clear anteriorly with decreased breath sounds at the bases. Abdomen: Soft. Extremities: Edema with chronic skin changes of venous stasis and lymphedema. Lab Data: Reviewed. Labs show WBC count 8.3. This is improved from October 16 when it was 11.2, stab le from yesterday when it was 8.2, hemoglobin and hematocrit are stable, 11.3 and 34.4, platelet coun t is 293. Chemistries seem stable with sodium at 133, potassium at 4.0, chloride 93, bicarb is 37, B UN and creatinine are improved from yesterday when they were 58 and 2.41, now BUN and creatinine are 55 and 2.16. Calcium is 8.6, phosphorus 4.3, magnesium 2.1. TSH level yesterday was 0.142. Cortiso l level was 16.66. Her free T4 was in normal range at 0.95. Assessment And Plan: The patient with acute kidney injury over question chronic kidney disease. Cre atinine has improved further from yesterday. The patient's blood pressure seems reasonable. The pat ielavelle is currently looking comfortable on oxygen. May need rehabilitation or step-down admission for rehab and physical therapy before returning home. The patient's kidney status will need monitoring o nce discharged from here. Advised followup in clinic with Dr. Jaramillo, Dr. Lerma for assessment of r esidual kidney function and damage from current acute injury and management of same. Medications reviewed. Labs reviewed. Disc ussed with Dr. Mckenzie as well. /MODL Voice ID: [id number] Report ID: [id number]
--- NOTE | 2023-10-25 18:12 | PN ---
Date of Progress Note: 10/25/2023 Subjective: Seen at bedside. Doing clinically better. Started to have some significant lower extre mity swelling. Denies chest pain. No significant shortness of breath. Has mild orthopnea. No dysu freedom, polyuria, or urinary urgency. All other systems reviewed, they are negative. Physical Examination: Vital Signs: Reviewed. Head and Neck: Pupils are equal, reactive to light. Intact eye movements. No JVD. No cervical lym phadenopathy. Neck is supple. Thyroid is not enlarged. Lungs: Clear to auscultation. No rhonchi, wheezing, crackles. No accessory muscle use. Heart: Regular. No extra sounds. Abdomen: Soft, nontender. Bowel sounds positive. No organomegaly. No masses or hernia. No rigidi ty or rebound. Extremities: edema 3+. No clubbing or cyanosis. Intact pulses. Skin: No new rash or nodules. Neurologic: Alert, awake, oriented x3. No acute focal deficits appreciated. Investigations: BUN 55, creatinine 2.16, hemoglobin is 11.3. Assessment And Recommendations: 1.Atrial fibrillation. Rate is acceptable. for now. Monitor and continue Xarelto 10 mg daily. 2.Acute renal failure due to dehydration and prerenal azotemia, improved significantly with fluids; however, at this point, I see significant lower extremity edema . I recommend to stop IV f luids and monitor closely and avoid diuretics and monitor BUN and creatinine closely. 3.Hypotension due to dehydration and acute renal failure. Plan as above. /DESMOND Voice ID: [id number] Report ID: [id number]
[2023-10-25] MEDS: HYDROCORTISONE SUC 100 MG INJ IV SCH (20:06)
[2023-10-25] MEDS ORDERED: SILDENAFIL CITRATE 20 MG TABLET PO SCH (21:00)
[2023-10-25] MEDS: LORazepam 2 MG/ML VIAL IV ONE (21:14)
[2023-10-25] MEDS: QUETIAPINE 25 MG TAB PO SCH (21:14)
[2023-10-26 04:54] LABS: Absolute Lymphocytes (CBC) 0.4 K/uL (0.7-4.9); Absolute Monocytes 0.2 K/uL (0.1-1.3); Absolute Neutrophil 4.4 K/uL (1.8-8.0); Basophils % 0.4 % (0-1.3); Hematocrit 32.5 % (36.0-45.0); Hemoglobin 10.6 g/dL (12.0-15.0); Lymphocytes % 8.8 % (15.3-44.8); MCH 28.7 pg (27.0-35.0); MCHC 32.8 g/dL (32.0-36.0); MCV 87.4 fL (80-100); Monocytes % 3.4 % (3.3-12.3); Neutrophils % 87.4 % (41.7-73.7); Platelets 278 thou/uL (152-406); RBC Red Blood Cell Count 3.71 M/uL (3.86-4.86)
[2023-10-26 05:13] LABS: Anion Gap 3.5 mEq/L (5.0-15.0); Magnesium 2.1 mg/dL (1.6-2.4); Phosphorus 3.6 mg/dL (2.5-4.9); Potassium 4.5 mEq/L (3.5-5.1)
[2023-10-26] MEDS: ALPRAZOLAM 0.5 MG TABLET PO SCH (14:32)
[2023-10-26] MEDS: TRAMADOL HCL 50 MG TAB PO PRN (15:30)
--- NOTE | 2023-10-26 17:10 | P.PN ---
Date of Service: 10/25/23 Subjective Patient doing well. Patient denies any new complaints. Spoke to daughter. Still requesting current plan of care at this time. Will plan on transferring to [facility] once patient has been accepted. 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 Urinary tract infection/toxic encephalopathy - Neurologic status has improved. Patient appears to be much more awake and alert today. She is overall doing much better. Will downgrade her to general medical floor. Continue with Seroquel at this time. 2. Acute kidney injury - Renal function has improved; nephrology consultation appreciated. 3. History of atrial fibrillation - continue medication for rate control rate-remains controlled; Continue with anticoagulation 4. History of hypertension - strict blood pressure control; continue monitoring hemodynamics 5. History of morbid obesity - long-term morbid obesity; patient not really able to make decisions to help with her weight loss. Her likelihood of significant weight loss is very low at this stage in her life. Long-term prognosis remains very poor. 6. History of osteoarthritis - Continue with pain control 7. History of dementia with behavioral disturbances - continue with medication for mood stabilizing-Seroquel
--- NOTE | 2023-10-26 17:16 | P.PN ---
Date of Service: 10/26/23 Subjective Patient continues to do well; normal BMs. Patient denies any new complaints. Worried about her -he was released from hospital a few days ago, but he is unable to care for Mrs. Morin. Spoke to daughter yesterday, and she is agreeable for pt to go to SNF. Will plan on transferring to [facility] once patient has been accepted. 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 Urinary tract infection/toxic encephalopathy - Neurologic status has improved. Patient is much more awake and alert at this time. She is overall doing much better. Continue with Seroquel at this time. 2. Acute kidney injury - Renal function has improved; almost back to baseline; nephrology consultation appreciated. 3. History of atrial fibrillation - continue medication for rate control rate-remains controlled; Continue with anticoagulation 4. History of hypertension - strict blood pressure control; continue monitoring hemodynamics 5. History of morbid obesity - long-term morbid obesity; patient not really able to make decisions to help with her weight loss. Her likelihood of significant weight loss is very low at this stage in her life. Long-term prognosis remains very poor. 6. History of osteoarthritis - Continue with pain control 7. History of dementia with behavioral disturbances - continue with medication for mood stabilizing-Seroquel
[2023-10-27] MEDS: HYDRALAZINE HCL 20 MG/ML VIAL IV PRN ×2 (04:17→19:24)
[2023-10-27 05:24] LABS: Absolute Lymphocytes (CBC) 0.8 K/uL (0.7-4.9); Absolute Monocytes 0.3 K/uL (0.1-1.3); Basophils % 0.5 % (0-1.3); Eosinophils % 0.2 % (0-4.4); Hematocrit 35.6 % (36.0-45.0); Hemoglobin 11.6 g/dL (12.0-15.0); Lymphocytes % 9.8 % (15.3-44.8); MCH 28.5 pg (27.0-35.0); MCHC 32.5 g/dL (32.0-36.0); MCV 87.7 fL (80-100); MPV 8.2 fL (7.6-11.3); Neutrophils % 85.5 % (41.7-73.7); Platelets 308 thou/uL (152-406); RBC Red Blood Cell Count 4.06 M/uL (3.86-4.86); Red Cell Distribution Width 15.1 % (12.1-15.2)
[2023-10-27 05:33] LABS: Magnesium 2.2 mg/dL (1.6-2.4)
[2023-10-27 06:04] LABS: Anisocytosis 2+; Blood Morphology Comment NOTED (NOT SEEN); Differential Total Cells Count 100; Hypochromasia 3+; Lymphocytes 18 % (15-42); Monocytes 2 % (0-10); Platelet Estimate ADEQ; Segmented Neutrophils 80 % (40-80)
--- NOTE | 2023-10-27 06:52 | ECHO ---
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[employer] 2-DIMENSIONAL: YES M.MODE: YES DOPPLER: YES COLOR FLOW: YES TDS: PORTABLE: YES DEFINITY: BUBBLE STUDY: DIAGNOSIS: ELEVATED TROPONIN CARDIAC HISTORY: CATHERIZATION: SURGERY: PROSTHETIC VALVE: PACEMAKER: MEASUREMENTS (cm) DIASTOLIC (NORMALS) SYSTOLIC (NORMALS) IVSd 1.2 (0.6-1.2) LA Diam 4.5 (1.9-4.0) LVEF 55% LVIDd 4.8 (3.5-5.7) LVIDs 4.0 (2.0-3.5) %FS LVPWd 1.4 (0.6-1.2) Ao Diam 2.8 (2.0-3.7) 2 DIMENSIONAL ASSESSMENT: RIGHT ATRIUM: ENLARGED LEFT ATRIUM: ENLARGED RIGHT VENTRICLE: NORMAL LEFT VENTRICLE: NORMAL TRICUSPID VALVE: MILD TRICUSPID REGURGITATION MITRAL VALVE: MILD MITRAL REGURGITATION PULMONIC VALVE: NORMAL AORTIC VALVE: NORMAL PERICARDIAL EFFUSION: NONE AORTIC ROOT: NORMAL LEFT VENTRICULAR WALL MOTION: NORMAL DOPPLER/COLOR FLOW: SEE BELOW COMMENTS: 1. NORMAL LEFT VENTRICULAR EJECTION FRACTION 50-55% 2. NORMAL WALL MOTION 3. LEFT ATRIAL ENLARGEMENT 4. ATRIAL FIBRILLATION 5. BI-ATRIAL ENLARGEMENT 6. SEVERE PULMONARY HYPERTENSION WITH RIGHT VENTRICULAR SYSTOLIC PRESSURE GREATER THAN 60 mmHg TECHNOLOGIST: CONSTANZA BRUNER
--- NOTE | 2023-10-27 08:20 | RAD REPORT ---
EXAM DESCRIPTION: Ion Single View10/27/2023 7:06 am CLINICAL HISTORY: Chest pain COMPARISON: October 23, 2023 FINDINGS: Pulmonary vascular congestion is present Lungs appear clear of acute infiltrate. Heart is markedly enlarged. The PICC line with its tip in the SVC
--- NOTE | 2023-10-27 10:48 | P.PN ---
Subjective Date of Service: 10/27/23 Primary Care Provider: Herminio Chief Complaint: ams, uti, htn, chf, pulmonary hypertension Pt is resting comfortably in bed. She is aware that her is at home and she will be going to SNF. No complaints overnight. Waiting for SNF placement Review of Systems General: Unremarkable Eyes: Unremarkable ENT: Unremarkable Respiratory: Unremarkable Cardiovascular: Unremarkable Gastrointestinal: Unremarkable Genitourinary: Unremarkable Musculoskeletal: Unremarkable Integumentary: Unremarkable Neurological: Unremarkable Lymphatics: Unremarkable Physical Examination - Vital Signs Temperature: 97.3 F Blood Pressure: 178/56 Pulse: 86 Respirations: 16 Pulse Ox (%): 92 - Physical Exam General: Alert, In no apparent distress, Oriented x3, Obese HEENT: Atraumatic, Normocephalic, PERRLA Neck: Supple, 2+ carotid pulse no bruit, JVD not distended Respiratory: Clear to auscultation bilaterally, Normal air movement Cardiovascular: No edema, Normal pulses, Regular rate/rhythm, Normal S1 S2 Capillary refill: <2 Seconds Gastrointestinal: Normal bowel sounds, Soft and benign, Non-distended Musculoskeletal: No clubbing, No swelling Integumentary: No rashes, No breakdown, No significant lesion Neurological: Normal speech, Normal strength at 5/5 x4 extr, Normal tone Lymphatics: No axilla or inguinal lymphadenopathy Assessment And Plan - Plan Urinary tract infection/toxic encephalopathy: Pt completed abx. Will continue seroquel. Pt is AAOx3. Acute kidney injury: Cr is 1.4 <- 1.51 <- 2.16. improved. Will avoid nephrotoxins and monitor renal function. Nephrology is following. History of atrial fibrillation: Will continue telemetry and xarelto. The nocturn ist started dopamine drip last night. History of hypertension: Will continue prn hydralazine. History of morbid obesity: Pt was advised to lose weight. History of osteoarthritis: Continue with pain control History of dementia with behavioral disturbances: continue Seroquel DVT ppx: SCD Code: full
[2023-10-27] MEDS: FUROSEMIDE 40 MG TABLET PO SCH (11:07)
--- NOTE | 2023-10-27 11:36 | P.PN ---
Date of Service: 10/27/23 Vital Signs Temp Pulse Resp BP Pulse Ox 97.3 F 81 16 150/81 H 92 10/27/23 11:01 10/27/23 11:07 10/27/23 11:01 10/27/23 11:07 10/27/23 11:01 Medications Alprazolam (Alprazolam 0.5 Mg Tablet) 0.5 mg PO TID [facility] Last Admin: 10/27/23 08:05 Dose: 0.5 mg Aspirin (Aspirin Ec 81 Mg Tab) 81 mg PO DAILY [facility] Last Admin: 10/27/23 08:05 Dose: 81 mg Furosemide (Furosemide 40 Mg Tablet) 40 mg PO BIDL [facility] Last Admin: 10/27/23 11:07 Dose: 40 mg Hydralazine HCl (Hydralazine Hcl 20 Mg/Ml Vial) 20 mg IV Q4HP PRN PRN Reason: Goal to achieve SBP in comment Hydrocortisone Sodium Succinate (Hydrocortisone Suc 100 Mg Inj) 50 mg IV Q12HR [facility] Last Admin: 10/27/23 08:05 Dose: 50 mg Dopamine HCl/Dextrose (Dopamine 400 Mg/250 Ml D5w (Premix)) 400 mg in 250 mls @ 11.694 mls/hr IV TITR [facility]; Protocol Last Admin: 10/25/23 11:22 Dose: 4 mcg/kg/min, 18.7 mls/hr Pantoprazole Sodium (Pantoprazole 40mg Tablet) 40 mg PO ACB [facility] Last Admin: 10/27/23 08:05 Dose: 40 mg Quetiapine Fumarate (Quetiapine 25 Mg Tab) 25 mg PO BEDTIME [facility] Last Admin: 10/26/23 20:20 Dose: 25 mg Rivaroxaban (Rivaroxaban 10 Mg Tablet) 10 mg PO DAILY [facility] Last Admin: 10/27/23 08:05 Dose: 10 mg Tramadol HCl (Tramadol Hcl 50 Mg Tab) 50 mg PO Q6H PRN PRN Reason: Pain scale 5-7 (Moderate) Last Admin: 10/26/23 15:30 Dose: 50 mg Microbiology Results 10/15/23 12:15 Blood - Blood Aerobic Blood Culture - Final No growth in 5 days. 10/15/23 12:15 Blood - Blood Anaerobic Blood Culture - Final No growth in 5 days. 10/15/23 12:30 Clean Catch Urine [place] Count - Final >100,000 CFU/ML. 10/15/23 12:30 Clean Catch Urine - Final Klebsiella Pneumoniae Assessment/ Plan: Nephrology Progress Note No Dyspnea No Chest Pain Feeling better No Acute Events Overnight Vital Signs, Medications, Blood Work, and Imaging reviewed in the chart General: In no apparent distress, Oriented x3, Oriented x1 HEENT: Atraumatic Neck: Supple Respiratory: Normal air movement Cardiovascular: Regular rate/rhythm, Edema Gastrointestinal: Soft and benign, Non-distended Musculoskeletal: No clubbing, No contractures, Other (Right hand deformity) Integumentary: No rashes, No cyanosis Neurological: Normal speech Urinary: [place] catheter Blood work reviewed in the chart. Imagings Data: [id number] EXAM DESCRIPTION: US - Renal Ultrasound-Complete - 10/22/2023 8:06 am CLINICAL HISTORY: Chronic UTI, [facility] COMPARISON: Abdomen Pelvis Wo Contrast dated 08/15/2021 TECHNIQUE: Sonographic grayscale and color flow images of the kidneys were obtained. FINDINGS: Poor penetration limits evaluation. The right kidney measures 10.1 cm in long axis. Normal size and morphology to the extent evaluated, although evaluation of the lower pole is limited by over shadowing bowel. No hydronephrosis, discrete focal mass, or echogenic calculi. The left kidney was not well visualized due to over shadowing ribs and bowel. IMPRESSION: No discrete abnormalities of the right kidney to the extent evaluated. The left kidney was not well visualized due to over shadowing ribs and bowel. [id number] [facility] 5[facility]52 pm CLINICAL HISTORY: post PICC placement COMPARISON: Chest Single View dated 10/15/2023; Chest Single View dated 08/23/2021; Chest Single View dated 08/23/2021; Chest Single View dated 08/15/2021 TECHNIQUE: Portable AP view of the chest. FINDINGS: Right arm PICC has been placed with catheter tip projecting over the distal SVC. The lungs are clear. No pneumothorax or effusion. Stable cardiomegaly with central interstitial prominence. Mediastinal contours are unremarkable. IMPRESSION: Stable right arm PICC positioning. Stable cardiomegaly. No acute pulmonary process. LEFT VENTRICULAR WALL MOTION: MODERATE GLOBAL HYPOKINESIS. DOPPLER/COLOR FLOW: MILD TRICUSPID REGURGITATION SEVERE PULMONARY HYPERTENSION. COMMENTS: SEVERE PULMONARY HYPERTENSION 89mmHg. MODERATE GLOBAL HYPOKINESIS 35- 40%. LEFT ATRIAL ENLARGEMENT. RIGHT ATRIAL ENLARGEMENT. Conclusions/Impression: Stage II LILLIAM in the setting of CRS complicated by hypotension Proteinuria -No NSAIDs Alkalosis -Diamox prn HTN with CHF complicated by hypotension -Dopamine prn Systolic CHF, chronic Severe Pulmonary HTN Peripheral Edema -Continue Lasix Hypoalbuminemia -Consider protein supplementation Anemia in chronic illness -Monitor H&H Acute Infective Cystitis with Hematuria -Abx completed Hospitalist notes reviewed
--- NOTE | 2023-10-27 11:56 | P.PN ---
Subjective Date of Service: 10/27/23 Primary Care Provider: Herminio Chief Complaint: ams, uti, htn, chf, pulmonary hypertension Subjective: No new changes Review of Systems 10-point ROS is otherwise unremarkable Physical Examination - Vital Signs Temperature: 97.3 F Blood Pressure: 150/81 Pulse: 81 Respirations: 16 Pulse Ox (%): 92 - Physical Exam General: Alert, Oriented x3 HEENT: Atraumatic Neck: Supple Respiratory: Crackles/rales Cardiovascular: Edema, Irregular heart rate/rhythm Gastrointestinal: Normal bowel sounds Assessment And Plan - Current Problems (Diagnosis) (1) Chronic diastolic heart failure Current Visit: No Status: Acute Plan: patient was hypertensive initially but BP improved, exam shows edema in bilateral lower extremities. start patient on Lasix 40 mg po BID Monitor input and output (2) Atrial fibrillation Current Visit: No Status: Chronic Plan: currently rate controlled plan is to initiate BB slowly, will do that in am Continue Xarelto 10 mg daily. Qualifiers: Atrial fibrillation type: unspecified chronic Qualified Code(s): I48.20 - Chronic atrial fibrillation, unspecified; I48.2 - Chronic atrial fibrillation (3) Pulmonary hypertension Current Visit: No Status: Chronic Plan: restart patient on home sildenafil dose Lasix.
[2023-10-28 06:28] LABS: Absolute Lymphocytes (CBC) 0.7 K/uL (0.7-4.9); Absolute Monocytes 0.5 K/uL (0.1-1.3); Absolute Neutrophil 7.8 K/uL (1.8-8.0); Basophils % 0.4 % (0-1.3); Eosinophils % 0.1 % (0-4.4); Hematocrit 36.7 % (36.0-45.0); Hemoglobin 12.2 g/dL (12.0-15.0); Lymphocytes % 8.2 % (15.3-44.8); MCH 28.5 pg (27.0-35.0); MCHC 33.1 g/dL (32.0-36.0); MCV 86.2 fL (80-100); MPV 7.7 fL (7.6-11.3); Monocytes % 5.4 % (3.3-12.3); Neutrophils % 85.9 % (41.7-73.7); Nucleated Red Blood Cells % 0.1 % (0-0); Platelets 347 thou/uL (152-406); RBC Red Blood Cell Count 4.26 M/uL (3.86-4.86); Red Cell Distribution Width 15.6 % (12.1-15.2)
[2023-10-28 07:12] LABS: Anion Gap 8.9 mEq/L (5.0-15.0); Magnesium 2.1 mg/dL (1.6-2.4); Phosphorus 2.9 mg/dL (2.5-4.9); Potassium 3.9 mEq/L (3.5-5.1)
[2023-10-28] MEDS: METOPROLOL XL 25 MG TAB PO SCH (07:54)
[2023-10-28] MEDS: POTASSIUM CL SA 10 MEQ TAB PO ONE (07:54)
[2023-10-28] MEDS: SILDENAFIL CITRATE 20 MG TABLET PO SCH (09:26)
--- NOTE | 2023-10-28 10:11 | P.PN ---
Subjective Date of Service: 10/28/23 Primary Care Provider: Herminio Chief Complaint: ams, uti, htn, chf, pulmonary hypertension Pt is resting comfortably in bed. She denies any chest pain r SOB. Pt is requesting for slidenafil. Will resume metoprolol this am. No complaints overnight. Waiting for SNF placement Review of Systems General: Unremarkable Eyes: Unremarkable ENT: Unremarkable Respiratory: Unremarkable Cardiovascular: Unremarkable Gastrointestinal: Unremarkable Genitourinary: Unremarkable Musculoskeletal: Unremarkable Integumentary: Unremarkable Neurological: Unremarkable Lymphatics: Unremarkable Physical Examination - Vital Signs Temperature: 97.7 F Blood Pressure: 123/84 Pulse: 93 Respirations: 17 Pulse Ox (%): 98 - Physical Exam General: Alert, In no apparent distress, Oriented x3 HEENT: Atraumatic, Normocephalic, PERRLA Neck: Supple, 2+ carotid pulse no bruit, JVD not distended Respiratory: Clear to auscultation bilaterally, Normal air movement Cardiovascular: No edema, Normal pulses, Regular rate/rhythm, Normal S1 S2 Capillary refill: <2 Seconds Gastrointestinal: Normal bowel sounds, Soft and benign, Non-distended Musculoskeletal: No clubbing, No swelling Integumentary: No rashes, No breakdown, No significant lesion Neurological: Normal speech, Normal strength at 5/5 x4 extr, Normal tone Lymphatics: No axilla or inguinal lymphadenopathy Assessment And Plan - Plan Urinary tract infection/toxic encephalopathy: Pt completed abx. Will continue seroquel. Pt is AAOx3. Acute kidney injury: Cr is 1.4 <- 1.51 <- 2.16. improved. Will avoid nephrotoxins and monitor renal function. Nephrology is following. History of atrial fibrillation: Will continue metoprolol XL 25mg po daily, telemetry and xarelto. 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 History of hypertension: Will continue metoprolol and prn hydralazine. History of morbid obesity: Pt was advised to lose weight. History of osteoarthritis: Continue with pain control Pulm htn: Will resume Slidenafil Leg edema: Will continue lasix 40mg po BID. History of dementia with behavioral disturbances: continue Seroquel DVT ppx: SCD Code: full
--- NOTE | 2023-10-28 13:08 | P.PN ---
Subjective Date of Service: 10/28/23 Primary Care Provider: Herminio Chief Complaint: ams, uti, htn, chf, pulmonary hypertension Subjective: No new changes Review of Systems 10-point ROS is otherwise unremarkable Physical Examination - Vital Signs Temperature: 97.7 F Blood Pressure: 123/84 Pulse: 93 Respirations: 17 Pulse Ox (%): 98 - Physical Exam General: Alert, Oriented x3 HEENT: Atraumatic Neck: Supple Respiratory: Crackles/rales Cardiovascular: Edema, Irregular heart rate/rhythm Gastrointestinal: Normal bowel sounds Assessment And Plan - Current Problems (Diagnosis) (1) Chronic diastolic heart failure Current Visit: No Status: Acute Plan: patient was hypertensive initially but BP improved, exam shows edema in bilateral lower extremities. Lasix 40 mg po BID Monitor input and output (2) Atrial fibrillation Current Visit: No Status: Chronic Plan: currently rate controlled Continue Toprol XL 25 mg daily Continue Xarelto 10 mg daily. Qualifiers: Atrial fibrillation type: unspecified chronic Qualified Code(s): I48.20 - Chronic atrial fibrillation, unspecified; I48.2 - Chronic atrial fibrillation (3) Pulmonary hypertension Current Visit: No Status: Chronic Plan: Continue sildenafil, Lasix.
[2023-10-29 03:09] LABS: Absolute Lymphocytes (CBC) 0.5 K/uL (0.7-4.9); Absolute Monocytes 0.3 K/uL (0.1-1.3); Absolute Neutrophil 8.1 K/uL (1.8-8.0); Basophils % 0.3 % (0-1.3); Eosinophils % 0.1 % (0-4.4); Hematocrit 32.8 % (36.0-45.0); Hemoglobin 10.7 g/dL (12.0-15.0); Lymphocytes % 5.7 % (15.3-44.8); MCH 28.2 pg (27.0-35.0); MCHC 32.5 g/dL (32.0-36.0); MCV 86.9 fL (80-100); MPV 7.8 fL (7.6-11.3); Monocytes % 3.6 % (3.3-12.3); Platelets 277 thou/uL (152-406); RBC Red Blood Cell Count 3.78 M/uL (3.86-4.86); Red Cell Distribution Width 15.5 % (12.1-15.2)
[2023-10-29 03:10] LABS: Neutrophils % 90.3 % (41.7-73.7)
[2023-10-29 03:22] LABS: Anion Gap 5.5 mEq/L (5.0-15.0); Potassium 3.5 mEq/L (3.5-5.1)
--- NOTE | 2023-10-29 09:15 | P.PN ---
Subjective Date of Service: 10/29/23 Primary Care Provider: Herminio Chief Complaint: ams, uti, htn, chf, pulmonary hypertension Subjective: Improving <Lauren Pate - Last Filed: 10/29/23 09:10> Date of Service: 10/29/23 <Sean Rod Antionette - Last Filed: 10/29/23 12:43> Review of Systems 10-point ROS is otherwise unremarkable General: As per HPI Cardiovascular: As per HPI Genitourinary: As per HPI Neurological: As per HPI <Lauren Pate - Last Filed: 10/29/23 09:10> Physical Examination - Vital Signs Temperature: 97.5 F Blood Pressure: 128/78 Pulse: 76 Respirations: 19 Pulse Ox (%): 99 - Physical Exam General: Alert, In no apparent distress, Oriented x3, Obese HEENT: Atraumatic, Normocephalic Neck: Supple Respiratory: Normal air movement Cardiovascular: Edema Capillary refill: <2 Seconds Gastrointestinal: Soft and benign Musculoskeletal: No clubbing Integumentary: Other (ecchymosis across right chest) Neurological: Normal speech, Normal affect Lymphatics: No axilla or inguinal lymphadenopathy Urinary: Boone catheter External genitalia: Deferred Rectal: Deferred Other Physical/Emotional Findings: significant improvement post Seroquel <Lauren Pate - Last Filed: 10/29/23 09:10> Assessment And Plan - Plan AMS: 10/18 Overmedication. adjusted home medication. Weaning ativan. 10/18 Stopped ativan today Pt stable on Seroquel and much improved UTI. resolved Hx of A. fib: Continue telemetry and home meds. Continue Metoprolol, Xarelto 10/29/23 Cardiology added Lasix 40mg po BID yesterday Htn: Continue home meds. Morbid obesity with knee/shoulder/neck pain Awaiting SNF Code: full. <Lauren Pate - Last Filed: 10/29/23 09:10> - Plan Pt seen and examined. I agree withe the note by the HAT RENOVATOR. Pt is feeling better. Out of the ICU. AMS is better. Continue seroquel. She has been accepted to SNF. Will dc her today. Continue lasix 40mg po daily, metoprolol xl 25mg po daily and xarelto 10mg po daily. <Sean Rod - Last Filed: 10/29/23 12:43>
[2023-10-29 09:30] VITALS: O2SAT 93
[2023-10-29] MEDS: POTASSIUM CL SA 10 MEQ TAB PO ONE (10:34)
--- NOTE | 2023-10-29 11:55 | P.PN ---
Subjective Date of Service: 10/29/23 Primary Care Provider: Herminio Chief Complaint: ams, uti, htn, chf, pulmonary hypertension Subjective: No new changes Review of Systems 10-point ROS is otherwise unremarkable Physical Examination - Vital Signs Temperature: 97.5 F Blood Pressure: 128/78 Pulse: 76 Respirations: 19 Pulse Ox (%): 99 - Physical Exam General: Alert, Oriented x3 HEENT: Atraumatic Respiratory: Crackles/rales Cardiovascular: Normal S1 S2, Edema, Irregular heart rate/rhythm Gastrointestinal: Normal bowel sounds Other Physical/Emotional Findings: significant improvement post Seroquel Assessment And Plan - Current Problems (Diagnosis) (1) Chronic diastolic heart failure Current Visit: No Status: Acute Plan: Diastolic in nature, NYHA class 3, stage C Lasix 40 mg po BID Monitor input and output Correct electrolytes Patient will need to be on lasix on discharge (lasix 40 mg po daily) (2) Atrial fibrillation Current Visit: No Status: Chronic Plan: currently rate controlled Continue Toprol XL 25 mg daily Continue Xarelto 10 mg daily. Qualifiers: Atrial fibrillation type: unspecified chronic Qualified Code(s): I48.20 - Chronic atrial fibrillation, unspecified; I48.2 - Chronic atrial fibrillation (3) Pulmonary hypertension Current Visit: No Status: Chronic Plan: Continue sildenafil, Lasix.
[2023-10-29 12:42] VITALS: BP 151/72; TEMP 98.5
--- NOTE | 2023-10-29 13:37 | P.DS ---
Admission Date: 10/15/23 Discharge Date: 10/29/23 Primary Care Provider: Herminio Reason for Admission: ams, uti, htn, chf, pulmonary hypertension Consultations: Dr. Hamm - Cardiology Dr. Lerma - Nephrology Brief History of Present Illness: Mrs. Morin is a 72-year-old with a past medical history of hypertension, hyperlipidemia, CHF, arthritis, deconditioning, morbid obesity, and is generally bedbound. Her has been hospitalized, at this facility, for about a week and he is generally her caregiver. She states that sometimes she is able to stand and take a few steps with max assistance. However with her being away, she has been in the bed. She was brought to the emergency department over the weekend and diagnosed with a urinary tract infection. A Boone was placed and she was placed on Macrobid. She returned to the emergency department today with a chief complaint of dizziness, headache, confusion, and continued urinary symptoms. Laboratory evaluation reveals a white count of 11.1 with a left shift of 81.4%, Chem-7 with a minimum of abnormalities however creatinine 1.04 BUN 27, glucose 117, T. bili 1.7, alk phos 124. Lactate 1.0. Cath urine specimen is extremely turbid with trace ketones, 3+ blood, 3+ protein, 500 esterase, greater than 50 WBCs, greater than 50 RBCs, greater than 50 bacteria. This has been sent for culture. Chest x-ray shows pulmonary vascular congestion otherwise bob gs are clear, heart is moderately enlarged. On my evaluation, patient is alert and oriented. She states she supposed to stay here until her gets out of the hospital. I think SNF evaluation is a good idea. Her blood pressure is 176/103, heart rate 80, respiratory rate 22, SpO2 on room air 92%. She will be admitted for further evaluation and treatment. Hospital Course: Mrs. Morin's hospital course for treatment of urinary tract infection complicated her other medical problems such as renal insufficiency, congestive heart failure, and anxiety/depression. She is feeling significantly better as her medications have been adjusted, her urinary tract infection has been treated, and she has been accepted to her custodial facility of choice. <Lauren Pate - Last Filed: 10/29/23 13:39> Admission Date: 10/15/23 Discharge Date: 10/30/23 Hospital Course: Pt seen and examined. I agree with the note by the STRAIGHT EDGER. Pt completed abx for UTI. Will continue lasix for leg edema. Follow up with PCP in clinic. Ok to discharge to SNF. <SiminwillRodrigo hendersonasher Adan - Last Filed: 10/30/23 16:27> Disposition: TRANSFER TO LONG TERM Discharge Condition: GOOD Vital Signs/Physical Exam: Temp Pulse Resp BP Pulse Ox 98.5 F 75 18 151/72 H 94 10/29/23 12:00 10/29/23 12:00 10/29/23 12:00 10/29/23 12:00 10/29/23 12:00 General: Alert, In no apparent distress, Oriented x3, Cooperative, Obese HEENT: Atraumatic, Normocephalic Neck: Supple Respiratory: Normal air movement Cardiovascular: Regular rate/rhythm, Edema Capillary refill: <2 Seconds Gastrointestinal: Soft and benign Musculoskeletal: No clubbing Integumentary: Other (lower extremities scaly, edematous) Neurological: Normal speech, Normal affect, Abnormal strength Lymphatics: No axilla or inguinal lymphadenopathy Urinary: Boone catheter External genitalia: Deferred Rectal: Deferred Other Physical/Emotional Findings: significant improvement post Seroquel Laboratory Data at Discharge: WBC 8.90 thou/uL (4.3-10.9) 10/29/23 02:49 Hgb 10.7 g/dL (12.0-15.0) L D 10/29/23 02:49 Hct 32.8 % (36.0-45.0) L 10/29/23 02:49 Plt Count 277 thou/uL (152-406) 10/29/23 02:49 PT 16.4 SECONDS (9.5-12.5) H 10/16/23 02:40 INR 1.51 10/16/23 02:40 Sodium 142 mEq/L (136-145) 10/29/23 02:49 Potassium 3.5 mEq/L (3.5-5.1) 10/29/23 02:49 BUN 48 mg/dL (7-18) H 10/29/23 02:49 Creatinine 1.19 mg/dL (0.55-1.02) H 10/29/23 02:49 Glucose 118 mg/dL (74-106) H 10/29/23 02:49 Uric Acid 9.6 mg/dL (2.6-6.0) H 10/24/23 04:12 Phosphorus 2.9 mg/dL (2.5-4.9) 10/28/23 05:30 Magnesium 2.1 mg/dL (1.6-2.4) 10/28/23 05:30 Total Bilirubin 0.6 mg/dL (0.2-1.0) 10/24/23 04:12 AST 20 U/L (15-37) 10/24/23 04:12 ALT 26 U/L (13-56) 10/24/23 04:12 Alkaline Phosphatase 162 U/L (45-117) H 10/24/23 04:12 Triglycerides 58 mg/dL (<150) 10/16/23 02:40 Cholesterol 135 mg/dL (<200) 10/16/23 02:40 HDL Cholesterol 61 mg/dL (40-60) H 10/16/23 02:40 Cholesterol/HDL Ratio 2.21 10/16/23 02:40 <Pate,Lauren Rosales - Last Filed: 10/29/23 13:39> Vital Signs/Physical Exam: Temp Pulse Resp BP Pulse Ox 98.5 F 75 18 151/72 H 94 10/29/23 12:00 10/29/23 12:00 10/29/23 12:00 10/29/23 12:00 10/29/23 12:00 Laboratory Data at Discharge: WBC 8.90 thou/uL (4.3-10.9) 10/29/23 02:49 Hgb 10.7 g/dL (12.0-15.0) L D 10/29/23 02:49 Hct 32.8 % (36.0-45.0) L 10/29/23 02:49 Plt Count 277 thou/uL (152-406) 10/29/23 02:49 PT 16.4 SECONDS (9.5-12.5) H 10/16/23 02:40 INR 1.51 10/16/23 02:40 Sodium 142 mEq/L (136-145) 10/29/23 02:49 Potassium 3.5 mEq/L (3.5-5.1) 10/29/23 02:49 BUN 48 mg/dL (7-18) H 10/29/23 02:49 Creatinine 1.19 mg/dL (0.55-1.02) H 10/29/23 02:49 Glucose 118 mg/dL (74-106) H 10/29/23 02:49 Uric Acid 9.6 mg/dL (2.6-6.0) H 10/24/23 04:12 Phosphorus 2.9 mg/dL (2.5-4.9) 10/28/23 05:30 Magnesium 2.1 mg/dL (1.6-2.4) 10/28/23 05:30 Total Bilirubin 0.6 mg/dL (0.2-1.0) 10/24/23 04:12 AST 20 U/L (15-37) 10/24/23 04:12 ALT 26 U/L (13-56) 10/24/23 04:12 Alkaline Phosphatase 162 U/L (45-117) H 10/24/23 04:12 Triglycerides 58 mg/dL (<150) 10/16/23 02:40 Cholesterol 135 mg/dL (<200) 10/16/23 02:40 HDL Cholesterol 61 mg/dL (40-60) H 10/16/23 02:40 Cholesterol/HDL Ratio 2.21 10/16/23 02:40 <Sean Rod - Last Filed: 10/30/23 16:27> Diet: AHA Activity: Ad dennise <Lauren Pate - Last Filed: 10/29/23 13:39> <Sean Rod - Last Filed: 10/30/23 16:27> Home Medications: Acetaminophen 1 tab PO TID 08/16/21 Alprazolam [Xanax] 1 mg PO TID 08/16/21 Chlorzoxazone 1 tab PO DAILY 08/16/21 Rivaroxaban [Xarelto*] 1 tab PO DAILY 08/16/21 Sildenafil Citrate 1 tab PO TID 08/16/21 Dicyclomine [Bentyl*] 20 mg PO DAILY 10/16/23 Spironolactone [Aldactone*] 0.5 tab PO DAILY 10/16/23 Tramadol HCl [Ultram] 1 tab PO Q6H PRN 10/16/23 Furosemide [Lasix*] 40 mg PO DAILY 60 Days #60 tab 10/29/23 Metoprolol Succinate [Toprol Xl*] 25 mg PO DAILY 60 Days #60 tab 10/29/23 Pantoprazole [Protonix Tab*] 40 mg PO ACB 30 Days #30 tab 10/29/23 Quetiapine [Seroquel*] 25 mg PO BEDTIME 30 Days #30 tab 10/29/23 New Medications: Furosemide [Lasix*] 40 mg PO DAILY 60 Days #60 tab Pantoprazole [Protonix Tab*] 40 mg PO ACB 30 Days #30 tab Quetiapine [Seroquel*] 25 mg PO BEDTIME 30 Days #30 tab Metoprolol Succinate [Toprol Xl*] 25 mg PO DAILY 60 Days #60 tab Physician Discharge Instructions: Continue ad dennise activity. Take home meds as prescribed. Follow up with PCP within 1 - 2 weeks Followup: Tawanna Mi FNP [Primary Care Provider] -
--- NOTE | 2023-10-29 21:15 | P.PN ---
Date of Service: 10/29/23 Vital Signs Temp Pulse Resp BP Pulse Ox 98.5 F 75 18 151/72 H 94 10/29/23 12:00 10/29/23 12:00 10/29/23 12:00 10/29/23 12:00 10/29/23 12:00 Microbiology Results 10/15/23 12:15 Blood - Blood Aerobic Blood Culture - Final No growth in 5 days. 10/15/23 12:15 Blood - Blood Anaerobic Blood Culture - Final No growth in 5 days. 10/15/23 12:30 Clean Catch Urine [place] Count - Final >100,000 CFU/ML. 10/15/23 12:30 Clean Catch Urine - Final Klebsiella Pneumoniae Assessment/ Plan: Nephrology Progress Note No Dyspnea No Chest Pain Feeling better No Acute Events Overnight Vital Signs, Medications, Blood Work, and Imaging reviewed in the chart General: In no apparent distress, Oriented x3, Oriented x1 HEENT: Atraumatic Neck: Supple Respiratory: Normal air movement Cardiovascular: Regular rate/rhythm, Edema Gastrointestinal: Soft and benign, Non-distended Musculoskeletal: No clubbing, No contractures, Other (Right hand deformity) Integumentary: No rashes, No cyanosis Neurological: Normal speech Urinary: Boone catheter Blood work reviewed in the chart. Imagings Data: [id number] EXAM DESCRIPTION: US - Renal Ultrasound-Complete - 10/22/2023 8:06 am CLINICAL HISTORY: Chronic UTI, [facility] COMPARISON: Abdomen Pelvis Wo Contrast dated 08/15/2021 TECHNIQUE: Sonographic grayscale and color flow images of the kidneys were obtained. FINDINGS: Poor penetration limits evaluation. The right kidney measures 10.1 cm in long axis. Normal size and morphology to the extent evaluated, although evaluation of the lower pole is limited by over shadowing bowel. No hydronephrosis, discrete focal mass, or echogenic calculi. The left kidney was not well visualized due to over shadowing ribs and bowel. IMPRESSION: No discrete abnormalities of the right kidney to the extent evaluated. The left kidney was not well visualized due to over shadowing ribs and bowel. [id number] EXAM DESCRIPTION: RADChest Single View10/16/2023 5:52 pm CLINICAL HISTORY: post PICC placement COMPARISON: Chest Single View dated 10/15/2023; Chest Single View dated 08/23/2021; Chest Single View dated 08/23/2021; Chest Single View dated 08/15/2021 TECHNIQUE: Portable AP view of the chest. FINDINGS: Right arm PICC has been placed with catheter tip projecting over the distal SVC. The lungs are clear. No pneumothorax or effusion. Stable cardiomegaly with central interstitial prominence. Mediastinal contours are unremarkable. IMPRESSION: Stable right arm PICC positioning. Stable cardiomegaly. No acute pulmonary process. LEFT VENTRICULAR WALL MOTION: MODERATE GLOBAL HYPOKINESIS. DOPPLER/COLOR FLOW: MILD TRICUSPID REGURGITATION SEVERE PULMONARY HYPERTENSION. COMMENTS: SEVERE PULMONARY HYPERTENSION 89mmHg. MODERATE GLOBAL HYPOKINESIS 35- 40%. LEFT ATRIAL ENLARGEMENT. RIGHT ATRIAL ENLARGEMENT. Conclusions/Impression: Stage II LILLIAM in the setting of CRS complicated by hypotension Proteinuria -No NSAIDs Alkalosis -Diamox prn HTN with CHF -Continue Metoprolol Systolic CHF, chronic Severe Pulmonary HTN Peripheral Edema -Continue Lasix Hypoalbuminemia -Consider protein supplementation Anemia in chronic illness -Monitor H&H Acute Infective Cystitis with Hematuria -Abx completed Hospitalist notes reviewed
== END 2023-10-29 15:06 | DRG 689 ==
LOC: ER 11:19 → 2ND 13:41 → 3RD-ICU 10-23 22:25 → 2ND 10-28 19:41
PROVIDERS: ADMIT Hospitalist; ATTEND Hospitalist
PROC: 02HV33Z Insertion of Infusion Device into Superior Vena Cava, Percutaneous Approach (ICD-10-PCS; 2023-10-16)
PROC: 4A033R1 Measurement of Arterial Saturation, Peripheral, Percutaneous Approach (ICD-10-PCS; principal; 2023-10-23)
PROC: 5A09557 Assistance with Respiratory Ventilation, Greater than 96 Consecutive Hours, Continuous Positive Airway Pressure (ICD-10-PCS; 2023-10-23)
DX: N30.01 Acute cystitis with hematuria (principal); G92.9 Unspecified toxic encephalopathy; J96.02 Acute respiratory failure with hypercapnia; N17.9 Acute kidney failure, unspecified; I50.22 Chronic systolic (congestive) heart failure; E87.3 Alkalosis; I48.20 Chronic atrial fibrillation, unspecified; F03.94 Unspecified dementia, unspecified severity, with anxiety; F03.93 Unspecified dementia, unspecified severity, with mood disturbance; I11.0 Hypertensive heart disease with heart failure; E78.5 Hyperlipidemia, unspecified; D63.8 Anemia in other chronic diseases classified elsewhere; M06.9 Rheumatoid arthritis, unspecified; G89.29 Other chronic pain; M19.90 Unspecified osteoarthritis, unspecified site; E66.01 Morbid (severe) obesity due to excess calories; I95.9 Hypotension, unspecified; E86.0 Dehydration; M54.2 Cervicalgia; M25.569 Pain in unspecified knee; M25.519 Pain in unspecified shoulder; E88.09 Other disorders of plasma-protein metabolism, not elsewhere classified; I27.20 Pulmonary hypertension, unspecified; B96.1 Klebsiella pneumoniae [K. pneumoniae] as the cause of diseases classified elsewhere; R00.1 Bradycardia, unspecified; Z88.5 Allergy status to narcotic agent; Z88.1 Allergy status to other antibiotic agents; Z74.01 Bed confinement status; Z79.01 Long term (current) use of anticoagulants; Z90.49 Acquired absence of other specified parts of digestive tract; Z79.899 Other long term (current) drug therapy
CPT/HCPCS: 36415; 36600; 70450; 71045; 76770; 80048; 80053; 80061; 80069; 81001; 82306; 82330; 82533; 82805; 82947; 83605; 83735; 83880; 84100; 84439; 84443; 84484; 84550; 85025; 85610; 87040; 87077; 87086; 87088; 87186; 93005; 93306; 94660; 94760; 96365; 97110; 97161; 97164; 97530; 99284; C9113; J0360; J0461; J0696; J0744; J1265; J1720; J1940; J3480; J7030; J7050; P9047

== ENCOUNTER 2024-04-21 20:38 | Emergency (ER) | payer OTHER ==
[2024-04-21 22:25] LABS: Absolute Basophils 0.1 K/uL (0-0.5); Absolute Eosinophils 0.3 K/uL (0-0.5); Absolute Lymphocytes (CBC) 1.5 K/uL (0.7-4.9); Absolute Monocytes 0.6 K/uL (0.1-1.3); Basophils % 0.8 % (0-1.3); Eosinophils % 3.8 % (0-4.4); Hematocrit 41.6 % (36.0-45.0); Hemoglobin 13.9 g/dL (12.0-15.0); Lymphocytes % 17.8 % (15.3-44.8); MCH 30.1 pg (27.0-35.0); MCHC 33.5 g/dL (32.0-36.0); MCV 90.1 fL (80-100); MPV 7.5 fL (7.6-11.3); Monocytes % 6.5 % (3.3-12.3); Neutrophils % 71.1 % (41.7-73.7); Nucleated Red Blood Cells % 0.1 % (0-0); Platelets 276 thou/uL (152-406); RBC Red Blood Cell Count 4.61 M/uL (3.86-4.86); Red Cell Distribution Width 13.1 % (12.1-15.2)
--- NOTE | 2024-04-21 22:29 | RAD REPORT ---
EXAMINATION: ONE VIEW CHEST XR CLINICAL INDICATION: CHEST PAIN TECHNIQUE: Frontal chest projection is submitted. Examination is limited by patient positioning and t echnique. COMPARISON: 11/14/2023 FINDINGS: Mild interstitial pulmonary edema. The heart is moderately enlarged in size. No displaced fractures i dentified. IMPRESSION: Mild CHF
[2024-04-21 22:57] LABS: Anion Gap 6.6 mEq/L (5.0-15.0); Troponin High Sensitivity 13.4 pg/mL (<58.9)
[2024-04-21 22:58] LABS: Potassium 4.6 mEq/L (3.5-5.1)
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
--- NOTE | 2024-04-21 23:58 | EDPHYS ---
Physician Documentation [facility] Name: Kati Morin Age: 73 yrs Sex: Female : 1950 Arrival Date: 04/21/2024 Time: 20:38 Bed 7 Private MD: ED Physician Anurag Potter HPI: 04/21 23:46 This 73 yrs old Female presents to ER via EMS with complaints of anxiety cp sob etc. bo1 23:46 Pt reports that she "lost it" after seeing pictures and items of "another woman." Pt is bo1 upset and said that her spouse called "[id number].". Onset: The symptoms/episode began/occurred suddenly, just prior to arrival. Severity of symptoms: At their worst the symptoms were moderate. The patient has experienced similar episodes in the past, today's symptoms are similar. Pt has a hx of anxiety, afib, chf etc. Historical: - Allergies: 21:24 Codeine; mt4 21:24 Morphine; mt4 21:24 Fentanyl; mt4 21:24 sulfamethoxazole-trimethoprim; mt4 - PMHx: 21:24 Anxiety; Atrial Fib; Hypertension; pulmonary HTN; Rheumatoid Arthritis; mt4 - Immunization history:: Adult Immunizations up to date. - Infectious Disease History:: Denies. - Social history:: Smoking status: Patient denies any tobacco usage or history of. ROS: 23:49 Constitutional: Negative for fever, chills, and weight loss bo1 23:49 Neck: Negative for pain with movement, pain at rest, 23:49 Cardiovascular: Positive for palpitations, 23:49 Respiratory: Positive for shortness of breath, 23:49 Abdomen/GI: Negative for abdominal pain, nausea and vomiting, 23:49 MS/extremity: Positive for swelling, Negative for pain, 23:49 Psych: Positive for anxiety, Pt reports being "upset" with her , 23:49 All other systems are negative, 23:50 Psych: Negative for homicidal ideation, suicidal ideation, bo1 Exam: 23:50 Constitutional: This is a well developed, well nourished patient who is awake, alert, bo1 and in no acute distress. 23:50 Constitutional: The patient appears alert, awake, comfortable, obese, Pt appears to be mostly bedbound 23:50 Head/face: Exam is negative for acute changes, obvious evidence of injury or deformity, 23:50 Neck: External neck: is normal, no acute changes, 23:50 Cardiovascular: Rate: normal, Rhythm: irregular, irregularly irregular, Pulses: no pulse deficits are appreciated, 23:50 ECG was reviewed by the Attending Physician. 23:50 Respiratory: the patient does not display signs of respiratory distress, Respirations: normal, no acute changes, Breath sounds: are clear throughout, 23:50 Abdomen/GI: Inspection: obese Bowel sounds: normal, Palpation: abdomen is soft and non-tender, 23:50 Musculoskeletal/extremity: Calves: are non-tender, Swelling present, but not tense, appears chronic and passive. 23:50 Skin: no rash present. 23:50 Psych: Behavior/mood is anxious, depressed, appropriate for age, Affect is labile, accuses her spouse that he's "cheating on her". Oriented to person, place, time, Patient has no thoughts/intents to harm self or others. Vital Signs: 20:50 BP 143 / 65; Pulse 92; Resp 14; Pulse Ox 92% on R/A; mt4 21:14 BP 158 / 102; Pulse 72; Resp 16; Temp 99(O); Pulse Ox 99% on R/A; Pain 10/10; mt4 04/22 00:28 BP 138 / 88; Pulse 90; Resp 17; Temp 98.4(O); Pulse Ox 96% on R/A; mt4 21:14 Pain Scale: Adult mt4 Makayla Coma Score: 04/21 20:50 Eye Response: spontaneous(4). Motor Response: obeys commands(6). Verbal Response: mt4 oriented(5). Total: 15. 04/22 00:28 Eye Response: spontaneous(4). Motor Response: obeys commands(6). Verbal Response: mt4 oriented(5). Total: 15. MDM: 04/21 21:26 Medical Screening Exam initiated bo1 23:56 Differential Diagnosis Anxiety and reactive depression. Data reviewed: vital signs, lab bo1 test result(s), CBC, electrolytes, urinalysis, EKG, radiologic studies, plain films. ED course: Pt does not meet criteria for acute hospital stay or obs. 04/21 21:58 Order name: Basic Metabolic Panel; Complete Time: 23:01 lg3 04/21 21:58 Order name: CBC with Diff; Complete Time: 22:41 lg3 04/21 21:58 Order name: Troponin HS; Complete Time: 23:01 3 04/21 21:58 Order name: XRAY Chest (1 view); Complete Time: 22:41 lg3 04/21 21:58 Order name: EKG; Complete Time: 21:59 3 04/21 21:58 Order name: Cardiac monitoring; Complete Time: 22:39 lg3 04/21 21:58 Order name: EKG - Nurse/Tech; Complete Time: 22:39 lg3 04/21 21:58 Order name: IV Saline Lock; Complete Time: 00:01 3 04/21 21:58 Order name: Labs collected and sent; Complete Time: 22:39 3 04/21 21:58 Order name: O2 Per Protocol; Complete Time: 22:39 3 04/21 21:58 Order name: O2 Sat Monitoring; Complete Time: 22:39 lg3 EC:50 Rate is 95 beats/min. Rhythm is irregularly irregular. QRS [place] is Normal. PA interval bo1 is normal. QRS interval is normal. QT interval is normal. No Q waves. T waves are Normal. No ST changes noted. Clinical impression: Atrial Fibrillation. Interpreted by me. Reviewed by me. Administered Medications: No medications were administered Disposition Summary: 04/21/24 23:58 Discharge Ordered Notes: Location: Home bo1 Problem: chronic bo1 Symptoms: are unchanged bo1 Condition: Stable bo1 Diagnosis - Other reactions to severe stress bo1 - Unspecified atrial fibrillation bo1 - Chronic atrial fibrillation bo1 Followup: bo1 - With: Private Physician - When: As needed - Reason: Recheck today's complaints Discharge Instructions: - Discharge Summary Sheet bo1 - Atrial Fibrillation, Emne-yp-Pwty bo1 Forms: - SBAR form kmf - Medication Reconciliation Form bo1 - Antibiotic Education bo1 - Prescription Opioid Use bo1 - Patient Portal Instructions bo1 - Leadership Thank You Letter bo1 Signatures: Dispatcher [employer] Jessica Painter, RN RN lg3 Anurag Potter MD MD bo1 Evelia Morales RN RN mt4
[2024-04-22 00:53] VITALS: BP 138/88; TEMP 98.4; O2SAT 96
--- NOTE | 2024-04-22 11:07 | EKG ---
Test Date: 2024-04-21 Test Time: 22:18:39 Finish Machine Tender: REE MEASUREMENT RESULTS: Intervals: Rate: 95 OH: QRSD: 80 QT: 220 QTc: 276 Accident: P: OH: QRS: 78 T: 203 INTERPRETIVE STATEMENTS: Atrial fibrillation ST & T wave abnormality, consider inferior ischemia Abnormal ECG Compared to ECG 11/14/2023 19:24:35 Myocardial infarct finding no longer present ST (T wave) deviation still present Possible ischemia still present Electronically Signed On 04-22-24 11:06:36 CDT by Jimbo Hamm
== END 2024-04-22 00:41 | disposition home or self-care (01) ==
LOC: ER 20:38
DX: F43.89 Other reactions to severe stress (principal); I48.20 Chronic atrial fibrillation, unspecified; I10 Essential (primary) hypertension; F41.9 Anxiety disorder, unspecified
CPT/HCPCS: 36415; 71045; 80048; 84484; 85025; 93005; 99285

== ENCOUNTER 2024-06-22 11:57 | Emergency (ER) | payer OTHER ==
[2024-06-22 12:46] LABS: Absolute Basophils 0.1 K/uL (0-0.5); Absolute Eosinophils 0.4 K/uL (0-0.5); Absolute Lymphocytes (CBC) 1.7 K/uL (0.7-4.9); Absolute Monocytes 0.5 K/uL (0.1-1.3); Absolute Neutrophil 4.1 K/uL (1.8-8.0); Basophils % 0.8 % (0-1.3); Eosinophils % 5.3 % (0-4.4); Hematocrit 44.1 % (36.0-45.0); Hemoglobin 14.4 g/dL (12.0-15.0); MCH 28.7 pg (27.0-35.0); MCHC 32.8 g/dL (32.0-36.0); MCV 87.7 fL (80-100); MPV 7.6 fL (7.6-11.3); Monocytes % 7.6 % (3.3-12.3); Neutrophils % 61.3 % (41.7-73.7); Platelets 227 thou/uL (152-406); RBC Red Blood Cell Count 5.03 M/uL (3.86-4.86); Red Cell Distribution Width 14.3 % (12.1-15.2)
[2024-06-22 13:02] LABS: ALT/SGPT < 14 U/L (13-56); AST/SGOT 20 U/L (15-37); Albumin 3.2 g/dL (3.4-5.0); Albumin/Globulin Ratio 0.8 (1.1-1.8); Alkaline Phosphatase 99 U/L (45-117); Anion Gap 12.8 mEq/L (5.0-15.0); BUN Blood Urea Nitrogen 20 mg/dL (7-18); Bicarbonate 26 mEq/L (21-32); Bilirubin Total 1.1 mg/dL (0.2-1.0); Glomerular Filtration Rate 55 ml/min (=/>90); Glucose Level 95 mg/dL (74-106); Potassium 3.8 mEq/L (3.5-5.1); Protein, Total 7.2 g/dL (6.4-8.2); Sodium Level 140 mEq/L (136-145)
[2024-06-22 13:28] LABS: Specific Gravity 1.024 (1.005-1.030); Urine Bacteria <20 /HPF (<20); Urine Bilirubin 1+ (Negative); Urine Blood 3+ (OVER) (Negative); Urine Clarity Extremely Turbid (Clear); Urine Color Yellow (Yellow); Urine Culture Reflex Order REFLEXED; Urine Glucose NEGATIVE (Negative); Urine Ketones 2+ (Negative); Urine Microscopic Reflex YN ORDER UMIC; Urine Mucus 1+ /HPF (None Seen); Urine Nitrite NEGATIVE (Negative); Urine Protein 2+ (Negative); Urine RBC >50 /HPF (None Seen); Urine Urobilinogen 1+ (Normal); Urine WBC >50 /HPF (<5); Urine pH 5.5 (5.0-7.0)
[2024-06-22] MEDS ORDERED: CEFTRIAXONE 2000 MG/VIAL ONE (14:17)
[2024-06-22] MEDS ORDERED: NA CHLORIDE 0.9% 100 ML ONE (14:18)
--- NOTE | 2024-06-22 15:17 | ER ---
Nurse's Notes [facility] Name: Kati Morin Age: 73 yrs Sex: Female : 1950 Arrival Date: 06/22/2024 Time: 11:57 Bed 5 Private MD: Diagnosis: UTI/ Urinary tract infection, site not specified Presentation: 06/22 12:05 Chief complaint: EMS states: Home health nurse toned out EMS for possible UTI and rs5 dehydration. Pt had "bladder surgery" on the 06/20/24, discharge home with a barbosa. Home health nurse reports "odorous urine" and that patient has not been urinating much over past 3 days. Coronavirus screen: At this time, the client does not indicate any symptoms associated with coronavirus-19. Ebola Screen: No symptoms or risks identified at this time. Initial Sepsis Screen: Does the patient meet any 2 criteria? No. Patient's initial sepsis screen is negative. Does the patient have a suspected source of infection? No. Patient's initial sepsis screen is negative. Risk Assessment: Do you want to hurt yourself or someone else? Patient reports no desire to harm self or others. Onset of symptoms was June 22, 2024. 12:05 Method Of Arrival: EMS: [facility] rs5 12:05 Acuity: KATE 3 rs5 Triage Assessment: 12:05 General: Appears in no apparent distress. uncomfortable, Behavior is calm, cooperative. rs5 Pain: Denies pain. Historical: - Allergies: 12:01 Codeine; jl7 12:01 Fentanyl; jl7 12:01 Morphine; jl7 12:01 sulfamethoxazole-trimethoprim; jl7 - Home Meds: 12:01 Xarelto 10 mg Oral tab 1 tab once daily [Active]; losartan 100 mg Oral tab 1 tab once jl7 daily [Active]; - PMHx: 12:01 Anxiety; Atrial Fib; Hypertension; pulmonary HTN; Rheumatoid Arthritis; jl7 - Immunization history:: Adult Immunizations up to date. - Infectious Disease History:: Denies. - Social history:: Smoking status: Patient denies any tobacco usage or history of. Screenin:00 [facility] ED Fall Risk Assessment (Adult) History of falling in the last 3 months, rs5 including since admission No falls in past 3 months (0 pts) Confusion or Disorientation No (0 pts) Intoxicated or Sedated No (0 pts) Impaired Gait Yes (1 pt) Mobility Assist Device Used Yes (1 pt) Altered Elimination No (0 pt) Score/Fall Risk Level 0 - 2 = Low Risk Oriented to surroundings, Maintained a safe environment. Abuse screen: Denies threats or abuse. 12:05 Nutritional screening: No deficits noted. Tuberculosis screening: No symptoms or risk rs5 factors identified. Assessment: 12:00 Pain: Denies pain. GI: Abdomen is non-distended. EENT: No signs and/or symptoms were rs5 reported regarding the EENT system. Musculoskeletal: Range of motion: intact in all extremities. 12:00 Reassessment: Patient and/or family updated on plan of care and expected duration. Pain rs5 level reassessed. Patient is alert, oriented x 3, equal unlabored respirations, skin warm/dry/pink. 12:42 General: Appears in no apparent distress. obese, Behavior is calm, cooperative. Neuro: iw Level of Consciousness is awake, alert, obeys commands, Oriented to person, place, time, situation. Cardiovascular: Respiratory: Respiratory effort is even, unlabored, Respiratory pattern is regular, symmetrical. : Barbosa in place to gravity drainage Urine is clear. Derm: Skin is pale. 15:58 Reassessment: Patient appears in no apparent distress at this time. Patient and/or iw family updated on plan of care and expected duration. Pain level reassessed. barbosa catheter appears to be leaking urine at urethra, Dr. Potter ordered barbosa replacement , completed by [facility] , and witnessed by [facility]. Vital Signs: 12:05 BP 173 / 110; Pulse 91; Resp 18; Temp 98(O); Pulse Ox 90% on R/A; rs5 13:36 BP 160 / 119; Pulse 85; Resp 19; Pulse Ox 91% on R/A; iw 13:57 BP 166 / 97; Pulse 90; Resp 20 S; Pulse Ox 99% on R/A; iw 16:00 BP 155 / 88; Pulse 80; Resp 17; Pulse Ox 97% on R/A; rs5 ED Course: 12:00 Patient arrived in ED. jl7 12:00 Patient has correct armband on for positive identification. Provided Education on: . iw 12:01 Anruag Potter MD is Attending Physician. bo1 12:01 Arm band placed on right wrist. jl7 12:05 Shaun Lopes, RN is Primary Nurse. rs5 12:12 Triage completed. rs5 12:37 Inserted saline lock: 22 gauge in right antecubital area, using aseptic technique. iw Blood collected. Flushed with 10 mL NS. 16:17 No provider procedures requiring assistance completed. IV discontinued, intact, iw bleeding controlled, No redness/swelling at site. Pressure dressing applied. Administered Medications: 14:23 Drug: Rocephin IV 2 grams IV at bolus once; Given slow IV push per pharmarcy iw instructions Route: IV; Rate: bolus; Site: right antecubital; 14:41 Follow up: Response: No adverse reaction; IV Status: Completed infusion; IV Intake: [id number] Medication: 12:43 VIS not applicable for this client. iw Intake: 14:41 IV: 50ml; Total: 50ml. rs5 Outcome: 15:16 Discharge ordered by . bo1 16:16 Discharged to home via ambulance, iw 16:16 Condition: good 16:16 Discharge instructions given to patient, Instructed on discharge instructions, follow up and referral plans. medication usage, Demonstrated understanding of instructions, follow-up care, medications, Prescriptions given X 1, transported by [facility] 16:17 Patient left the ED. iw Addendum: 06/25/2024 07:16 Addendum: Culture Results: Positive urine culture. No further action required. Bacteria e b sensitive to prescribed antibiotic. Signatures: Bettye Yin RN RN iw Parviz Ferrer RN RN jl7 Barbara Ellison Ricky, CLEMENTINA MCRAE rs5 Anurag Potter MD MD bo1 Corrections: (The following items were deleted from the chart) 06/22 16:31 16:31 BP 155 / 88; Pulse 80bpm; Resp 17bpm; Pulse Ox 97% RA; rs5 rs5
--- NOTE | 2024-06-22 15:17 | EDPHYS ---
Physician Documentation [facility] Name: Kati Morin Age: 73 yrs Sex: Female : 1950 Arrival Date: 06/22/2024 Time: 11:57 Bed 5 Private MD: ED Physician Anurag Potter HPI: 06/22 12:01 This 73 yrs old Female presents to ER via Unassigned with complaints of Urinary Problem.bo1 15:06 Pt reports that she was visited by a HOURLY SHIFT today \\T\\ 10:30am who "shoved" a barbosa catheter bo1 into her and got her to call 911 for transport to the hospital. Onset: The symptoms/episode began/occurred at an unknown time. Pt is unable to tell me as to her symptoms other than that the HOURLY SHIFT "shoved" the catheter into her. The patient has been recently seen at the [facility] Emergency Department, I had seen the pt recently where the pt made an accusation of infidelity. She is bed bound on dependent on her spouse. Historical: - Allergies: 12:01 Codeine; jl7 12:01 Fentanyl; jl7 12:01 Morphine; jl7 12:01 sulfamethoxazole-trimethoprim; jl7 - Home Meds: 12:01 Xarelto 10 mg Oral tab 1 tab once daily [Active]; losartan 100 mg Oral tab 1 tab once jl7 daily [Active]; - PMHx: 12:01 Anxiety; Atrial Fib; Hypertension; pulmonary HTN; Rheumatoid Arthritis; jl7 - Immunization history:: Adult Immunizations up to date. - Infectious Disease History:: Denies. - Social history:: Smoking status: Patient denies any tobacco usage or history of. ROS: 15:08 Constitutional: Negative for fever, chills, and weight loss bo1 15:08 Eyes: Positive for redness, Irritation and "I am rubbing my eyes.", 15:08 Cardiovascular: Negative for chest pain, 15:08 Respiratory: Negative for cough, shortness of breath, 15:08 Abdomen/GI: Negative for abdominal pain, nausea and vomiting, 15:08 : Positive for urinary symptoms, foul smelling urine, Placement of a barbosa catheter today by a home visiting HOURLY SHIFT per the pt, 15:08 MS/extremity: Negative for pain, 15:08 All other systems are negative, Exam: 15:11 Constitutional: This is a well developed, well nourished patient who is awake, alert, bo1 and in no acute distress. 15:11 Constitutional: The patient appears alert, awake, comfortable, obese, smells of urine, Bed bound 15:11 Head/face: Exam is negative for acute changes, 15:11 Neck: Exam negative for acute changes, 15:11 Cardiovascular: Rate: normal, Rhythm: regular, 15:11 Respiratory: the patient does not display signs of respiratory distress, Respirations: normal, Breath sounds: are clear throughout, 15:11 Abdomen/GI: Palpation: abdomen is soft and non-tender, rebound tenderness, is not appreciated, 15:11 : Barbosa catheter in place, urine is free flowing, 15:11 Musculoskeletal/extremity: Extremities: no acute changes, Chronic skin changes, mild edema from poor venous return, 15:11 Skin: no rash present. No cellulitis, 15:11 Psych: Behavior/mood is cooperative, depressed, Pt is again alleging that her is unfaithful and may be suicidal. Vital Signs: 12:05 BP 173 / 110; Pulse 91; Resp 18; Temp 98(O); Pulse Ox 90% on R/A; rs5 13:36 BP 160 / 119; Pulse 85; Resp 19; Pulse Ox 91% on R/A; iw 13:57 BP 166 / 97; Pulse 90; Resp 20 S; Pulse Ox 99% on R/A; iw 16:00 BP 155 / 88; Pulse 80; Resp 17; Pulse Ox 97% on R/A; rs5 MDM: 12:01 Medical Screening Exam initiated bo1 15:03 Differential Diagnosis UTI from barbosa, conjunctivitis, neurosis. Data reviewed: vital bo1 signs, old medical records, lab test result(s). ED course: Pt has "new" barbosa catheter placed by "HOURLY SHIFT" practitioner [employer] by EMS to a barbosa bag. Urine is flowing. No indication for acute hospitalization or obs. 06/22 12:13 Order name: CBC with Diff; Complete Time: 13:52 bo1 06/22 12:13 Order name: CMP; Complete Time: 13:52 bo1 06/22 12:13 Order name: Urinalysis w/ reflexes; Complete Time: 13:52 bo1 06/22 13:32 Order name: Urine Culture EDMS 06/22 12:13 Order name: IV Saline Lock; Complete Time: 12:37 bo1 06/22 12:13 Order name: Labs collected and sent; Complete Time: 12:41 bo1 Administered Medications: 14:23 Drug: Rocephin IV 2 grams IV at bolus once; Given slow IV push per pharmarcy iw instructions Route: IV; Rate: bolus; Site: right antecubital; 14:41 Follow up: Response: No adverse reaction; IV Status: Completed infusion; IV Intake: [id number] Disposition Summary: 06/22/24 15:16 Discharge Ordered Notes: Location: Home bo1 Problem: chronic bo1 Symptoms: have improved bo1 Condition: Stable bo1 Diagnosis - UTI/ Urinary tract infection, site not specified bo1 Followup: bo1 - With: Private Physician - When: Upon discharge from the Emergency Department - Reason: Recheck today's complaints, Continuance of care Discharge Instructions: - Discharge Summary Sheet bo1 - Urinary Tract Infection, Adult bo1 Forms: - Medication Reconciliation Form bo1 - Antibiotic Education bo1 - Prescription Opioid Use bo1 - Patient Portal Instructions bo1 - Leadership Thank You Letter bo1 Prescriptions: - nitrofurantoin monohyd/m-cryst 100 mg Oral capsule - take 1 capsule ORAL route every 12 hours must administer with a meal/food; 24 bo1 capsule; Refills: 0, Product Selection Permitted Signatures: Dispatcher [employer] Bettye Lind RN RN iw Leal, Jahala, RN RN jl7 Shaun Lopes RN RN rs5 Anurag Potter MD MD bo1
[2024-06-22 22:13] VITALS: TEMP 98
[2024-06-22 22:15] VITALS: BP 166/97; O2SAT 99
== END 2024-06-22 16:17 | disposition home or self-care (01) ==
LOC: ER 11:57
DX: N39.0 Urinary tract infection, site not specified (principal); Z79.01 Long term (current) use of anticoagulants
CPT/HCPCS: 96365; 87088; 85025; 81001; 87086; 36415; 87077 ×2; 87186 ×2; 80053; 99284; J0696

== ENCOUNTER 2024-07-15 17:26 | Inpatient (IN) | payer OTHER ==
[2024-07-15 19:41] LABS: Specific Gravity 1.016 (1.005-1.030); Sqamous Epithelial <5 /HPF (None Seen); Transitional Epithelial <5 /HPF (None Seen); Urine Bacteria <20 /HPF (<20); Urine Bilirubin NEGATIVE (Negative); Urine Blood Negative (Negative); Urine Clarity Turbid (Clear); Urine Color Light-Yellow (Yellow); Urine Culture Reflex Order REFLEXED; Urine Glucose NEGATIVE (Negative); Urine Ketones 2+ (Negative); Urine Microscopic Reflex YN ORDER UMIC; Urine Mucus 1+ /HPF (None Seen); Urine Nitrite NEGATIVE (Negative); Urine Protein NEGATIVE (Negative); Urine Urobilinogen Normal (Normal); Urine WBC Clump Rare /HPF (None Seen)
[2024-07-15 19:47] LABS: Absolute Eosinophils 0.2 K/uL (0-0.5); Absolute Lymphocytes (CBC) 1.5 K/uL (0.7-4.9); Absolute Monocytes 0.5 K/uL (0.1-1.3); Basophils % 0.5 % (0-1.3); Eosinophils % 2.5 % (0-4.4); Hematocrit 41.9 % (36.0-45.0); Hemoglobin 14.2 g/dL (12.0-15.0); Lymphocytes % 20.5 % (15.3-44.8); MCH 29.4 pg (27.0-35.0); MCHC 33.9 g/dL (32.0-36.0); MCV 86.6 fL (80-100); MPV 7.5 fL (7.6-11.3); Monocytes % 6.8 % (3.3-12.3); Neutrophils % 69.7 % (41.7-73.7); Platelets 278 thou/uL (152-406); RBC Red Blood Cell Count 4.84 M/uL (3.86-4.86); Red Cell Distribution Width 15.2 % (12.1-15.2)
[2024-07-15 20:12] LABS: Albumin 3.5 g/dL (3.4-5.0); Anion Gap 10.2 mEq/L (5.0-15.0); Bilirubin Total 0.8 mg/dL (0.2-1.0); Globulin 3.5 g/dL (2.3-3.5); Potassium 4.2 mEq/L (3.5-5.1)
--- NOTE | 2024-07-15 20:52 | ER ---
Nurse's Notes [facility] Name: Kati Morin Age: 73 yrs Sex: Female : 1950 Arrival Date: 07/15/2024 Time: 17:26 Bed 18 Private MD: Diagnosis: UTI/ Urinary tract infection, site not specified;Muscle weakness (generalized);Weakness;Obesity, unspecified Presentation: 07/15 17:39 Chief complaint: EMS states: OVERALL BILATERAL LEG SWELLING X 3 DAYS. NON COMPLIANT db WITH MEDS X 3 DAYS IS CAREGIVER AND PATIENT WITH ALTERED MENTAL STATUS X 3 DAYS FOUND DOWN BY MAIL PERSON. PT ARRIVED WITH RAMIREZ CATHETER IN PLACE. Coronavirus screen: Client denies travel out of the [place] in the last 14 days. At this time, the client does not indicate any symptoms associated with coronavirus-19. Ebola Screen: Patient negative for fever greater than or equal to 101.5 degrees Fahrenheit, and additional compatible Ebola Virus Disease symptoms Patient denies exposure to infectious person. Patient denies travel to an Ebola-affected area in the 21 days before illness onset. No symptoms or risks identified at this time. Initial Sepsis Screen: Does the patient meet any 2 criteria? No. Patient's initial sepsis screen is negative. Does the patient have a suspected source of infection? No. Patient's initial sepsis screen is negative. Risk Assessment: Do you want to hurt yourself or someone else? Patient reports no desire to harm self or others. Onset of symptoms was July 15, 2024. 17:39 Method Of Arrival: EMS: [facility] db 17:39 Acuity: KATE 2 db Triage Assessment: 17:39 General: Appears in no apparent distress. comfortable, Behavior is calm, cooperative. db Pain: Denies pain. Neuro: Level of Consciousness is awake, alert, obeys commands, Oriented to person, place. Respiratory: Airway is patent Respiratory effort is even, unlabored, Respiratory pattern is regular, symmetrical. Historical: - Allergies: 17:39 Codeine; db 17:39 Fentanyl; db 17:39 Morphine; db 17:39 sulfamethoxazole-trimethoprim; db - PMHx: 17:39 Anxiety; Atrial Fib; Hypertension; pulmonary HTN; Rheumatoid Arthritis; db - Immunization history:: Adult Immunizations unknown, . - Infectious Disease History:: Denies. - Social history:: Smoking status: Patient denies any tobacco usage or history of. Screenin:44 [facility] ED Fall Risk Assessment (Adult) History of falling in the last 3 months, mt4 including since admission No falls in past 3 months (0 pts) Confusion or Disorientation Yes (5 pts) Intoxicated or Sedated No (0 pts) Impaired Gait Yes (1 pt) Mobility Assist Device Used Yes (1 pt) Altered Elimination Yes (1 pt) Score/Fall Risk Level 3 or more points = High Risk Oriented to surroundings, Maintained a safe environment, Educated pt \T\ family on fall prevention, incl call for assistance when getting out of bed, Assessed \T\ reinforced patient's understanding of fall precautions, Hourly rounding (assess needs \T\ fall precautionary measures) done. Abuse screen: Denies threats or abuse. Nutritional screening: No deficits noted. Tuberculosis screening: No symptoms or risk factors identified. Exposure risk/Travel Screening: None identified. Assessment: 18:00 Reassessment: SEE TRIAGE FOR INITIAL ASSESSMMENT. General: Appears in no apparent db distress. comfortable, Behavior is calm, cooperative. 19:44 General: Appears in no apparent distress. comfortable, obese, unkempt, Behavior is mt4 calm, cooperative, appropriate for age. General:. Pain:. Neuro: Level of Consciousness is awake, alert, obeys commands, Oriented to person, place, time, situation, Lathe Set Up Operator are weak bilaterally Moves all extremities. Weakness Speech is normal, Reports weakness. Cardiovascular:. Respiratory: Airway is patent Respiratory effort is even, unlabored, Respiratory pattern is regular, symmetrical. GI: Abdomen is round non-distended, obese. : Ramirez in place Urine is clear. Derm: Skin is fragile, Skin is dry, Skin is pink, warm \T\ dry. Skin temperature is warm BILATERAL LYMPHEDEMA, DRY, THIN FLAKY SKIN. Musculoskeletal: Range of motion: limited in all extremities, RIGHT HAND DEFECT. 22:03 Derm: Wound noted right foot Wound is eschar on big toe. mt4 23:30 Reassessment: No changes from previously documented assessment. Patient is alert, mt4 oriented x 3, equal unlabored respirations, skin warm/dry/pink. 23:30 General: Appears in no apparent distress. comfortable, unkempt, Behavior is calm, mt4 cooperative, appropriate for age. Vital Signs: 17:39 BP 158 / 112; Pulse 91; Resp 18; Temp 98.9; Pulse Ox 96% ; Weight 108.86 kg; Height 5 db ft. 0 in. ; 19:44 BP 161 / 86; Pulse 81; Resp 19; Temp 98.2(O); Pulse Ox 98% on R/A; mt4 21:30 BP 140 / 96; Pulse 85; Resp 16; Pulse Ox 97% on R/A; mt4 23:00 BP 132 / 64; Pulse 72; Resp 19; Pulse Ox 95% on R/A; mt4 17:39 Body Mass Index 46.87 (108.86 kg, 152.4 cm) db Leighton Coma Score: 19:44 Eye Response: spontaneous(4). Motor Response: obeys commands(6). Verbal Response: mt4 oriented(5). Total: 15. ED Course: 17:39 Patient arrived in ED. db 17:39 Arm band placed on Patient placed in an exam room. db 17:53 Bessy Webb, RN is Primary Nurse. db 17:58 Triage completed. db 18:28 Anurag Potter MD is Attending Physician. bo1 19:11 Urine collected: Ramirez catheter specimen, clear. sa1 19:29 Inserted saline lock: 22 gauge in left forearm, using aseptic technique. Blood sa1 collected. Flushed with 10 mL NS. 19:29 Initial lab(s) drawn, by me, sent to lab. sa1 19:36 CBC with Diff Sent. sa1 19:36 CMP Sent. sa1 19:36 Urinalysis w/ reflexes Sent. sa1 19:40 Evelia Moralse, CLEMENTINA is Primary Nurse. mt4 19:44 Patient has correct armband on for positive identification. Placed in gown. Bed in low mt4 position. Call light in reach. Side rails up X 1. Provided Education on: LABS AND MEDS . Client placed on continuous cardiac and pulse oximetry monitoring. NIBP monitoring applied. 19:44 No provider procedures requiring assistance completed. Patient maintains SpO2 mt4 saturation greater than 95% on room air. 20:51 Hilario Hood MD is Hospitalizing Provider. bo1 23:30 Door closed. Moved to private room. Warm blanket given. Pillow given. Verbal mt4 reassurance given. 23:30 Cleaned of incontinence. mt4 07/16 00:07 Patient admitted, IV remains in place. mt4 Administered Medications: 07/15 21:49 Drug: Rocephin IV 2 grams IV at bolus once; Given slow IV push per pharmarcy mt4 instructions Route: IV; Rate: bolus; Site: left forearm; 22:56 Follow up: Response: No adverse reaction; IV Status: Completed infusion mt4 Medication: 18:00 VIS not applicable for this client. pelon Outcome: 20:52 Decision to Hospitalize by Provider. bo1 07/16 00:07 Admitted to Med/surg accompanied by tech, room 431, mt4 Condition: stable Instructed on the need for admit, 00:08 Patient left the ED. mt4 Signatures: Bessy Webb, RN RN db Anurag Potter MD MD bo1 Evelia Morales RN RN mt4 Sultan Koffi [facility]
--- NOTE | 2024-07-15 20:52 | EDPHYS ---
Physician Documentation [facility] Name: Kati Morin Age: 73 yrs Sex: Female : 1950 Arrival Date: 07/15/2024 Time: 17:26 Bed 18 Private MD: ED Physician Anurag Potter HPI: 07/15 18:40 This 73 yrs old Female presents to ER via EMS with complaints of General Weakness. bo1 18:40 Pt has come in reporting that she has not eaten for 3 days and that her caregiver was bo1 not responsive since last night. The caregiver is in the other room #3.. Onset: The symptoms/episode began/occurred gradually. 19:59 Pt's usual caregiver is a pt in room #3. He is AMS. She called "911" on him and bo1 herself. Spouse states he was last seen last night. There were a lot of allegations of a personal nature including intake of ETOH - 80 proof. Pt is unable to respond "yes or no" to the allegation of ETOH abuse. Historical: - Allergies: 17:39 Codeine; db 17:39 Fentanyl; db 17:39 Morphine; db 17:39 sulfamethoxazole-trimethoprim; db - PMHx: 17:39 Anxiety; Atrial Fib; Hypertension; pulmonary HTN; Rheumatoid Arthritis; db - Immunization history:: Adult Immunizations unknown, . - Infectious Disease History:: Denies. - Social history:: Smoking status: Patient denies any tobacco usage or history of. ROS: 20:39 Constitutional: Negative for fever, chills, and weight loss Eyes: Negative for injury, bo1 pain, redness, and discharge 20:39 Constitutional: Positive for fatigue, poor PO intake, Weakness, 20:39 Neck: Negative for pain with movement, pain at rest, 20:39 Cardiovascular: Negative for chest pain, palpitations, 20:39 Respiratory: Negative for cough, shortness of breath, 20:39 Abdomen/GI: Negative for nausea and vomiting, 20:39 : Positive for foul smelling urine, Barbosa catheter, 20:39 Skin: Negative for rash, 20:39 Neuro: Positive for weakness, Negative for altered mental status, 20:39 All other systems are negative, Exam: 20:46 Constitutional: This is a well developed, well nourished patient who is awake, alert, bo1 and in no acute distress. 20:46 Constitutional: The patient appears alert, awake, comfortable, obese, smells of urine, Bedridden 20:46 Head/face: Exam is negative for acute changes, 20:46 ENT: Exam is negative for acute changes, 20:46 Cardiovascular: Rate: normal, Rhythm: regular, Heart sounds: normal, 20:46 Respiratory: the patient does not display signs of respiratory distress, Respirations: normal, Breath sounds: are clear throughout, 20:46 Abdomen/GI: Palpation: abdomen is soft and non-tender, 20:46 Musculoskeletal/extremity: Chronic skin changes with some non-pitting edema. 20:46 Skin: No exam of the posterior body. 20:46 Neuro: Exam negative for acute changes, Orientation: is normal, appropriate for stated age, Mentation: is normal, appropriate for stated age, Pt makes "allegations" against her caregiver - now a pt in room #3, Vital Signs: 17:39 BP 158 / 112; Pulse 91; Resp 18; Temp 98.9; Pulse Ox 96% ; Weight 108.86 kg; Height 5 db ft. 0 in. ; 19:44 BP 161 / 86; Pulse 81; Resp 19; Temp 98.2(O); Pulse Ox 98% on R/A; mt4 21:30 BP 140 / 96; Pulse 85; Resp 16; Pulse Ox 97% on R/A; mt4 23:00 BP 132 / 64; Pulse 72; Resp 19; Pulse Ox 95% on R/A; mt4 17:39 Body Mass Index 46.87 (108.86 kg, 152.4 cm) db [place] Coma Score: 19:44 Eye Response: spontaneous(4). Motor Response: obeys commands(6). Verbal Response: mt4 oriented(5). Total: 15. MDM: 18:28 Medical Screening Exam initiated bo1 20:48 Differential Diagnosis UTI - chronic. Data reviewed: vital signs, lab test result(s). bo1 Management of patient was discussed with the following: Hospitalist: Dr Erwin JAMA. ED course: Pt is both a medical condition - chronic UTI (indwelling barbosa catheter and bag) with a social issue in which she refuses care in a jail. Her outlook is complicated due to an ill caregiver in room #3. 20:50 Consideration of Admission/Observation Patient was admitted/placed on observation. I bo1 considered the following discharge prescriptions or medication management in the emergency department Medications were administered in the Emergency Department. See AUG. 07/15 18:42 Order name: CBC with Diff; Complete Time: 20:08 bo1 07/15 18:42 Order name: CMP; Complete Time: 20:17 bo1 07/15 18:42 Order name: Urinalysis w/ reflexes; Complete Time: 20:08 bo1 07/15 19:46 Order name: Urine Culture EDMS 07/15 22:16 Order name: Urinalysis w/ reflexes EDMS 07/15 22:16 Order name: CBC with Automated Diff EDMS 07/15 22:16 Order name: CBC with Automated Diff EDMS 07/15 22:16 Order name: Comprehensive Metabolic Panel EDMS 07/15 22:16 Order name: Comprehensive Metabolic Panel EDMS 07/15 18:42 Order name: IV Saline Lock; Complete Time: 19:36 bo1 07/15 18:42 Order name: Labs collected and sent; Complete Time: 19:36 bo1 Administered Medications: 21:49 Drug: Rocephin IV 2 grams IV at bolus once; Given slow IV push per pharmarcy mt4 instructions Route: IV; Rate: bolus; Site: left forearm; 22:56 Follow up: Response: No adverse reaction; IV Status: Completed infusion mt4 Disposition Summary: 07/15/24 20:52 Hospitalization Ordered Notes: Hospitalization Status: Observation bo1 Provider: Hilario Hood bo Location: Telemetry/MedSurg (observation) bo1 Condition: Fair bo1 Problem: chronic bo1 Symptoms: are unchanged bo1 Bed/Room Type: Standard bo Room Assignment: 431(07/15/24 22:24) vk Diagnosis - UTI/ Urinary tract infection, site not specified bo1 - Muscle weakness (generalized) bo1 - Weakness bo1 - Obesity, unspecified bo1 Forms: - Medication Reconciliation Form bo1 - SBAR form bo1 - Leadership Thank You Letter bo1 Signatures: Dispatcher [employer] EDBessy Morse RN RN db Kruse, Vivian vk Oei, Benjamin, MD MD bo1 Evelia Morales RN RN mt4 Corrections: (The following items were deleted from the chart) 22:24 20:52 bo1 vk
[2024-07-15] MEDS ORDERED: CEFTRIAXONE 2000 MG/VIAL ONE (21:17)
[2024-07-15] MEDS ORDERED: NA CHLORIDE 0.9% 100 ML ONE (21:18)
--- NOTE | 2024-07-15 21:58 | P.HP ---
Certification for Inpatient Patient admitted to: Inpatient With expected LOS: >2 Midnights Practitioner: I am a practitioner with admitting privileges, knowledge of patient current condition, hospital course, and medical plan of care. Services: Services provided to patient in accordance with Admission requirements found in Title 42 Section 412.3 of the Code of Federal Regulations Patient History Date of Service: 07/15/24 Reason for admission: UTI History of Present Illness: 73 yrs old Female with past medical history of anxiety, atrial fibrillation, hypertension, rheumatoid arthritis, pulmonary hypertension, morbid obesity, brought to ER with generalized weakness and fatigue. Patient states that she has not even eaten for 3 days and that her caregiver was not responsive since last night . Patient denies any chest pain or shortness of breath. No nausea vomiting or diarrhea. No fever or chills. Patient had a recent UTI as well and was admitted here in the hospital and was later found discharged home. Brought to ER back with similar kind of symptoms Patient was assessed in the ER and is admitted for further management of UTI Allergies codeine Allergy (Verified 09/18/19 21:40) Itching fentanyl Allergy (Verified 05/22/21 18:09) Hives/Rash morphine Allergy (Verified 05/10/20 14:39) Hives/Rash sulfamethoxazole [From Bactrim] Allergy (Verified 09/18/19 21:40) Hives/Rash trimethoprim [From Bactrim] Allergy (Verified 09/18/19 21:40) Hives/Rash Home medications list reviewed: Yes Home Medications: Acetaminophen 1 tab PO TID 08/16/21 Alprazolam [Xanax] 1 mg PO TID 08/16/21 Chlorzoxazone 1 tab PO DAILY 08/16/21 Rivaroxaban [Xarelto*] 1 tab PO DAILY 08/16/21 Sildenafil Citrate 1 tab PO TID 08/16/21 Dicyclomine [Bentyl*] 20 mg PO DAILY 10/16/23 Spironolactone [Aldactone*] 0.5 tab PO DAILY 10/16/23 Tramadol HCl [Ultram] 1 tab PO Q6H PRN 10/16/23 Furosemide [Lasix*] 40 mg PO DAILY 60 Days #60 tab 10/29/23 Pantoprazole [Protonix Tab*] 40 mg PO ACB 30 Days #30 tab 05/08/24 Quetiapine [Seroquel*] 25 mg PO BEDTIME 30 Days #30 tab 10/29/23 Metoprolol Tartrate [Lopressor*] 0.5 tab PO BID 30 Days #30 tab 11/16/23 - Past Medical/Surgical History Diabetic: No Past Medical History: Reviewed- Non-Contributory -: Pulmonary hypertension -: Atrial fibrillation -: debility -: anxiety -: chronic pain -: HTN -: Rheumatoid Arthritis -: Obesity -: CHF Past Surgical History: Reviewed- Non-Contributory -: L shoulder august 2019 -: hysterectomy -: Right shoulder injury -: Fx left elbow with surgery Psychosocial/ Personal History: Patient lives at home with her - Social History Smoking Status: Never smoker Alcohol use: No CD- Drugs: No Caffeine use: No Review of Systems 10-point ROS is otherwise unremarkable Physical Examination - Physical Exam General: Alert, Oriented x3, Mild distress, Obese HEENT: Atraumatic, Normocephalic Neck: Supple Respiratory: Clear to auscultation bilaterally, Normal air movement Cardiovascular: Normal pulses, Regular rate/rhythm Capillary refill: <2 Seconds Gastrointestinal: Soft and benign, W/out hepatosplenomegaly Musculoskeletal: No clubbing, No swelling Integumentary: No rashes, No breakdown Neurological: Normal speech, Normal strength at 5/5 x4 extr, Cranial nerves 3-12 intact Lymphatics: No axilla or inguinal lymphadenopathy - Studies Laboratory Data (last 24 hrs) 07/15/24 07/15/24 19:29 19:29 WBC 7.20 Hgb 14.2 Hct 41.9 Plt Count 278 Sodium 141 Potassium 4.2 BUN 21 H Creatinine 0.88 Glucose 97 Total Bilirubin 0.8 AST 17 ALT 17 Alkaline Phosphatase 86 Assessment and Plan - Plan Recurrent UTI Started on IV antibiotic IV hydration Monitor closely Continue home medications and titrate as needed Last culture came back positive for E. coli and Staph intermedius Will add on antibiotics to cover the same Hypertension Antihypertensives titrated Continue home medications and titrate as needed Hyperlipidemia Continue statin Atrial fibrillation Monitor under telemetry Rate controlled well now Obesity Needs lifestyle modification GI/DVT prophylaxis Advanced directive full code Discharge Plan: Prison Plan to discharge in: 48 Hours - Advance Directives Does patient have a Living Will: No Does patient have a Durable POA for Healthcare: No - Code Status/Comfort Care Code Status: Full Code Time Spent Managing Pts Care (In Minutes): 48
[2024-07-15] MEDS ORDERED: ONDANSETRON 4 MG/2 ML VIAL IV PRN (22:11)
[2024-07-16] MEDS: NA CHLORIDE 0.9% 1,000 ML IV SCH (00:43)
[2024-07-16] MEDS: ACETAMINOPHEN 325 MG TABLET PO PRN (01:22)
[2024-07-16] MEDS: VANCOMYCIN 1 GM in NA CHLORIDE 0.9% 250 ML IVPB SCH (03:45)
[2024-07-16] MEDS: VANCOMYCIN 2 GM in NA CHLORIDE 0.9% 500 ML IVPB SCH (04:00)
[2024-07-16] MEDS: VANCOMYCIN 1 GM/VIAL ONE (04:29)
[2024-07-16] MEDS: NA CHLORIDE 0.9% 500 ML ONE (04:30)
[2024-07-16 08:28] LABS: Albumin 3.1 g/dL (3.4-5.0); Albumin/Globulin Ratio 0.9 (1.1-1.8); Anion Gap 10.2 mEq/L (5.0-15.0); Bilirubin Total 0.8 mg/dL (0.2-1.0); Globulin 3.5 g/dL (2.3-3.5); Protein, Total 6.6 g/dL (6.4-8.2)
[2024-07-16 08:29] LABS: Potassium 4.2 mEq/L (3.5-5.1)
[2024-07-16] MEDS: DICYCLOMINE HCL 10 MG CAP PO SCH (08:36)
[2024-07-16] MEDS: RIVAROXABAN 10 MG TABLET PO SCH (08:36)
[2024-07-16] MEDS: ALPRAZOLAM 1 MG TABLET PO SCH (08:36)
[2024-07-16] MEDS: PANTOPRAZOLE 40MG TABLET PO SCH (08:36)
[2024-07-16] MEDS: ENOXAPARIN 40 MG/0.4 ML SQ SCH (08:37)
[2024-07-16] MEDS: METOPROLOL TAR 25 MG TAB PO SCH (08:37)
[2024-07-16] MEDS: CEFTRIAXONE 1,000 MG in NA CHLORIDE 0.9% 50 ML IVPB SCH (08:38)
[2024-07-16 09:04] LABS: Absolute Basophils 0.1 K/uL (0-0.5); Absolute Eosinophils 0.3 K/uL (0-0.5); Absolute Lymphocytes (CBC) 2.3 K/uL (0.7-4.9); Absolute Neutrophil 7.8 K/uL (1.8-8.0); Basophils % 0.6 % (0-1.3); Eosinophils % 2.9 % (0-4.4); Hematocrit 40.8 % (36.0-45.0); Hemoglobin 13.8 g/dL (12.0-15.0); Lymphocytes % 19.7 % (15.3-44.8); MCHC 33.9 g/dL (32.0-36.0); MCV 85.6 fL (80-100); Monocytes % 8.5 % (3.3-12.3); Neutrophils % 68.3 % (41.7-73.7); Nucleated Red Blood Cells % 0.1 % (0-0); Platelets 223 thou/uL (152-406); RBC Red Blood Cell Count 4.76 M/uL (3.86-4.86); Red Cell Distribution Width 14.6 % (12.1-15.2)
[2024-07-16 13:00] LABS: Platelet Estimate ADEQ; Platelets Clumped FEW; White Blood Cell Scan OK (OK)
[2024-07-16 13:01] LABS: Blood Morphology Comment NOT SEEN (NOT SEEN)
[2024-07-16] MEDS: TRAMADOL HCL 50 MG TAB PO PRN (13:20)
[2024-07-16] MEDS: FLU (Fluarix Triv) TS24-25(6MOS UP)/PF 45 MCG/0.5 ML Syringe IM ONE (13:21)
[2024-07-16] MEDS: PNEUMOCOCCAL VACCINE 0.5 ML IMVAC ONE (13:22)
[2024-07-16] MEDS: QUETIAPINE 25 MG TAB PO SCH (21:20)
[2024-07-17] MEDS ORDERED: VANCOMYCIN 1.5 GM in NA CHLORIDE 0.9% 500 ML IVPB SCH (04:00)
[2024-07-18 15:02] LABS: Albumin 2.9 g/dL (3.4-5.0); Albumin/Globulin Ratio 0.8 (1.1-1.8); Anion Gap 8.5 mEq/L (5.0-15.0); Bilirubin Total 0.7 mg/dL (0.2-1.0); Globulin 3.5 g/dL (2.3-3.5); Magnesium 1.7 mg/dL (1.6-2.4); Phosphorus 2.8 mg/dL (2.5-4.9); Potassium 3.5 mEq/L (3.5-5.1); Protein, Total 6.4 g/dL (6.4-8.2)
[2024-07-18] MEDS: ALBUMIN HUMAN 25% 50 ML IV ONE (15:41)
[2024-07-18] MEDS: FUROSEMIDE 20 MG/ 2ML VIAL IV SCH (15:45)
[2024-07-18] MEDS: FUROSEMIDE 40 MG/4 ML VIAL IV ONE (16:00)
--- NOTE | 2024-07-18 18:00 | P.PN ---
Date of Service: 07/16/24 Subjective Patient's undergoing surgery again for hemorrhagic stroke. Awaiting for placement. Also getting physical therapy and Occupational Therapy evaluation.Plan to work on transfers. Physical Examination - Vitals reviewed - Physical Exam General: Alert, Oriented x3, Mild distress, Obese Respiratory: Clear to auscultation bilaterally Cardiovascular: Normal pulses, Regular rate/rhythm Gastrointestinal: Soft and benign, W/out hepatosplenomegaly Musculoskeletal: No clubbing, No swelling Integumentary: No rashes, No breakdown Neurological: No focal deficits Assessment and Plan - Assessment/Plan 1. Recurrent UTI Continue on antibiotic therapy. The biggest issue will be placing patient as she is really not able to care for self at home and unless her is able to go home after his hemorrhagic stroke she will need placement. Have talked to her regarding this and she is understanding although she does get some confusion at times. 2. Hypertension Antihypertensives titrated Continue home medications and titrate as needed 3. Hyperlipidemia Continue statin 4. Atrial fibrillation Monitor under telemetry Rate controlled well now 5. Obesity Needs lifestyle modification GI/DVT prophylaxis Advanced directive full code Discharge Plan: Retirement Plan to discharge in: 48 Hours - Advance Directives Does patient have a Living Will: No Does patient have a Durable POA for Healthcare: No - Code Status/Comfort Care Code Status: Full Code Time Spent Managing Pts Care (In Minutes): 25
--- NOTE | 2024-07-18 18:01 | P.PN ---
Date of Service: 07/17/24 Subjective Patient's may be released over the weekend; patient is stable. Awaiting for discharge planning. Physical Examination - Vitals reviewed - Physical Exam General: Alert, Oriented x3, Mild distress, Obese Respiratory: Clear to auscultation bilaterally Cardiovascular: Normal pulses, Regular rate/rhythm Gastrointestinal: Soft and benign, W/out hepatosplenomegaly Musculoskeletal: No clubbing, No swelling Integumentary: No rashes, No breakdown Neurological: generalized weakness Assessment and Plan - Assessment/Plan Continue with plan of care as mentioned below: 1. Recurrent UTI Continue on antibiotic therapy. The biggest issue will be placing patient as she is really not able to care for self at home and unless her is able to go home after his hemorrhagic stroke she will need placement. Have talked to her regarding this and she is understanding although she does get some confusion at times. 2. Hypertension Antihypertensives titrated Continue home medications and titrate as needed 3. Hyperlipidemia Continue statin 4. Atrial fibrillation Monitor under telemetry Rate controlled well now 5. Obesity Needs lifestyle modification GI/DVT prophylaxis Advanced directive full code Discharge Plan: Correction Plan to discharge in: 48 Hours - Advance Directives Does patient have a Living Will: No Does patient have a Durable POA for Healthcare: No - Code Status/Comfort Care Code Status: Full Code Time Spent Managing Pts Care (In Minutes): 25
--- NOTE | 2024-07-19 03:06 | P.PN ---
Date of Service: 07/18/24 Subjective Patient states she would prefer to go home if her ends up discharging home. He is currently believe at [facility] [place], [place] after he had a subarachnoid hemorrhage. Patient will get physical therapy evaluation along with occupational therapy evaluation. Working on discharge planning at this time. Physical Examination - Vitals reviewed - Physical Exam General: Alert, Oriented x3, Mild distress, Obese Respiratory: Clear to auscultation bilaterally Cardiovascular: Normal pulses, Regular rate/rhythm Gastrointestinal: Soft and benign, W/out hepatosplenomegaly Musculoskeletal: No clubbing, No swelling Integumentary: No rashes, No breakdown Neurological: generalized weakness Assessment and Plan - Assessment/Plan Continue with plan of care as mentioned below: 1. Recurrent UTI Continue on antibiotic therapy. The biggest issue will be placing patient as she is really not able to care for self at home and unless her is able to go home after his hemorrhagic stroke she will need placement. Have talked to her regarding this and she is understanding although she does get some confusion at times. 2. Hypertension Antihypertensives titrated Continue home medications and titrate as needed 3. Hyperlipidemia Continue statin 4. Atrial fibrillation Monitor under telemetry Rate controlled well now 5. Obesity Needs lifestyle modification GI/DVT prophylaxis Advanced directive full code Discharge Plan: [facility] Plan to discharge in: 48 Hours - Advance Directives Does patient have a Living Will: No Does patient have a Durable POA for Healthcare: No - Code Status/Comfort Care Code Status: Full Code Time Spent Managing Pts Care (In Minutes): 25
[2024-07-19 06:30] LABS: Anion Gap 11.5 mEq/L (5.0-15.0); Magnesium 1.5 mg/dL (1.6-2.4); Potassium 3.5 mEq/L (3.5-5.1)
[2024-07-19] MEDS: Magnesium Sulfate 2gm IVPB 2 G/50 ML BAG IV ONE (07:09)
--- NOTE | 2024-07-19 07:53 | RAD REPORT ---
EXAMINATION: ONE VIEW CHEST XR CLINICAL INDICATION: pneumonia TECHNIQUE: Frontal chest projection is submitted. Examination is limited by patient positioning and t echnique. COMPARISON: 04/21/2024 FINDINGS: The lungs are well inflated and clear. The heart is moderately enlarged in size. No displaced fractur es identified. Aortic atherosclerosis. IMPRESSION: Cardiomegaly.
[2024-07-19] MEDS: SILDENAFIL CITRATE 20 MG TABLET PO SCH (08:21)
[2024-07-19] MEDS: POTASSIUM CL SA 10 MEQ TAB PO ONE (08:21)
[2024-07-19 08:26] LABS: Absolute Lymphocytes (CBC) 0.7 K/uL (0.7-4.9); Absolute Monocytes 0.6 K/uL (0.1-1.3); Absolute Neutrophil 8.9 K/uL (1.8-8.0); Basophils % 0.3 % (0-1.3); Hematocrit 42.1 % (36.0-45.0); Hemoglobin 14.2 g/dL (12.0-15.0); Lymphocytes % 6.7 % (15.3-44.8); MCH 29.3 pg (27.0-35.0); MCHC 33.7 g/dL (32.0-36.0); MCV 87.2 fL (80-100); MPV 7.7 fL (7.6-11.3); Monocytes % 6.2 % (3.3-12.3); Neutrophils % 86.8 % (41.7-73.7); Nucleated Red Blood Cells % 0.1 % (0-0); Platelets 168 thou/uL (152-406); RBC Red Blood Cell Count 4.83 M/uL (3.86-4.86); Red Cell Distribution Width 14.6 % (12.1-15.2)
[2024-07-19] MEDS: AMOX/K CLAV 875 MG TAB PO SCH (09:20)
[2024-07-19] MEDS: NOREPINEPHRINE 4 MG in D5W 250 ML IV SCH (12:08)
[2024-07-19 12:18] LABS: SARS-CoV-2 Antigen CONTROL BLUE LINE VIS/BG OK; SARS-CoV-2 Antigen Rapid Res Negative (Negative)
[2024-07-19 12:50] LABS: Arterial Blood Carboxyhemoglob 1.1 % (0-1.5); Blood Gas Oxyhemoglobin 96.1 % (94-97); Blood Gas THB 14.7 g/dl (12-18); Blood O2 Saturation 98.8 % (92-98.5)
[2024-07-19] MEDS ORDERED: NA CHLORIDE 0.9% 3,000 ML IV ONE (12:59)
[2024-07-19] MEDS ORDERED: NA CHLORIDE 0.9% 3,000 ML IV SCH (13:00)
[2024-07-19] MEDS ORDERED: NOREPINEPHRINE 4 MG in D5W 250 ML IV SCH (13:00)
--- NOTE | 2024-07-19 13:01 | P.PN ---
Subjective Date of Service: 07/19/24 Chief Complaint: UTI Subjective: Worsening Patient found to have a gurgling this morning unable to handle oral secretion however she has no complaint no shortness of breath or productive cough and then she developed a fever of 103, borderline hypotension with a systolic pressure in 80 mmHg, hypoxia, saturation p.o. to 80% on room air, rapid response was called and transferred to MICU. Review of Systems Other: Consitutional; fever(-), chills (-), rigor(-), night sweat(-), unintentional weight loss(-), malaise (-) HEENT; diplopia (-), rhinorrhea (-), epistaxis (-), otorrhea (-), otalgia (-) Respiratory; shortness of breath (-), wheezing (-), cough (-), sputum (-), pleuritic chest pain (-) Cardiovascular; chest pain (-), peripheral edema (-), paroxysmal nocturnal dyspnea (-), orthopnea (-) Gastrointestinal; nausea (-), vomiting (-), abdominal pain (-), diarrhea (-), constipation (-), melena (-), hematochezia (-) Genitourinary; urinary frequency (-), dysuria (-), urgency (-), flank pain (-), gross hematuria (-), incontinence (-) Skin; rash (-), pruritus (-) 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 General: Chronic ill- looking, obese,. HEENT: Normocephalic, atraumatic, nonicteric sclera, nonanemic conjunctive. Neck: Supple, without JVD or goiter or thyroid mass. Respiratory: Normal breathing effort, coarse breath sound bilaterally, no crackles no wheezing or rhonchi. Cardiovascular: Regular rate and rhythm, S1, S2 normal, no murmur no gallop. Gastrointestinal: Normal bowel sounds, nondistended, nontender, No ascites, , No masses, no hepatosplenomegaly. Extre mities : No clubbing, No peripheral edema, full range of motion, no deformity, no muscle atrophy. Integumentary: No rashes, petechia, suspected lesions. Lymphatics: No axilla or cervical lymphadenopathy. Neurology; alert awake oriented x2, no focal neurologic deficit, normal affection . mood and behavior. - Studies Microbiology Data (last 24 hrs): 07/15/24 19:11 Clean Catch Urine [place] Count - Final BETWEEN 10,000 & 100,000 CFU/ML 07/15/24 19:11 Clean Catch Urine - Final Enterococcus Faecalis Assessment And Plan - Plan 73 yrs old Female with past medical history of anxiety, atrial fibrillation, hypertension, rheumatoid arthritis, pulmonary hypertension, morbid obesity, brought to ER with generalized weakness and fatigue for 3 days. 1. Recurrent acute cystitis with Enterococcus faecalis Urine culture sensitivity and identification reviewed, I will change antibiotics to oral Augmentin #2 acute febrile illness Chest x-ray clear for pneumonia, procalcitonin level less than 0.07, no leukocytosis, I will upgrade antibiotics to cefepime while blood culture is pending, I will request respiratory pathogen panel 3. Permanent atrial fibrillation on rivaroxaban Borderline hypotension, heart rate at target, continue oral 12.5 mg metoprolol with holding parameter #4 borderline hypotension Differential diagnosis include secondary to medication induced, dehydration, se psis started on norepinephrine infusion after volume challenge with normal saline 3 L, I will hold sildenafil and IV furosemide DVT prophylaxis; rivaroxaban
--- NOTE | 2024-07-19 13:09 | RAD REPORT ---
Procedure: Chest Single View HISTORY: PICC line placement FINDINGS: A PICC line has been placed into the SVC.
[2024-07-19] MEDS: ACETAMINOPHEN 500 MG TAB PO PRN (15:01)
[2024-07-19] MEDS: CEFEPIME 2 GM in NA CHLORIDE 0.9% 100 ML IV SCH (21:00)
[2024-07-19] MEDS: Mupirocin NASAL 2 APPL/1 GM TUBE NAS SCH (21:00)
[2024-07-19] MEDS: NOREPINEPHRINE BITARTRATE/D5W 4 MG/250 ML BAG IV SCH (23:48)
[2024-07-20] MEDS ORDERED: NA CHLORIDE 0.9% 1,000 ML IV SCH (02:00)
[2024-07-20 05:12] LABS: Hematocrit 41.1 % (36.0-45.0); Hemoglobin 13.9 g/dL (12.0-15.0); RBC Red Blood Cell Count 4.79 M/uL (3.86-4.86)
[2024-07-20 05:13] LABS: Absolute Lymphocytes (CBC) 1.5 K/uL (0.7-4.9); Absolute Monocytes 1.4 K/uL (0.1-1.3); Absolute Neutrophil 12.5 K/uL (1.8-8.0); Basophils % 0.3 % (0-1.3); Lymphocytes % 9.5 % (15.3-44.8); MCHC 33.7 g/dL (32.0-36.0); MCV 85.8 fL (80-100); MPV 8.7 fL (7.6-11.3); Monocytes % 8.9 % (3.3-12.3); Neutrophils % 81.3 % (41.7-73.7); Nucleated Red Blood Cells % 0.1 % (0-0); Platelets 177 thou/uL (152-406)
[2024-07-20 05:33] LABS: Albumin 2.6 g/dL (3.4-5.0); Albumin/Globulin Ratio 0.7 (1.1-1.8); Anion Gap 12.1 mEq/L (5.0-15.0); Bilirubin Total 0.5 mg/dL (0.2-1.0); Globulin 3.7 g/dL (2.3-3.5); Potassium 3.1 mEq/L (3.5-5.1); Protein, Total 6.3 g/dL (6.4-8.2)
[2024-07-20] MEDS: POTASSIUM CL SA 10 MEQ TAB PO ONE (08:58)
--- NOTE | 2024-07-20 11:11 | P.PN ---
Subjective Date of Service: 07/20/24 Chief Complaint: UTI Subjective: Improving The patient appeared to be more alert awake cooperative, no fever overnight, still need supplemental oxygen 1 to 2 L nasal cannula, 0.5 mcg norepinephrine. The nurse at bedside patient is tolerating oral diet well, no complaint, no shortness of breath or chest pain, her blood pressure dropped and saturation decreased to when trying to wean off oxygen and no epinephrine last night. Review of Systems Other: Consitutional; fever(-), chills (-), rigor(-), night sweat(-), unintentional weight loss(-), malaise (+) HEENT; diplopia (-), rhinorrhea (-), epistaxis (-), otorrhea (-), otalgia (-) Respiratory; shortness of breath (+), wheezing (-), cough (-), sputum (-), pleuritic chest pain (-) Cardiovascular; chest pain (-), peripheral edema (-), paroxysmal nocturnal dyspnea (-), orthopnea (-) Gastrointestinal; nausea (-), vomiting (-), abdominal pain (-), diarrhea (-), constipation (-), melena (-), hematochezia (-) Genitourinary; urinary frequency (-), dysuria (-), urgency (-), flank pain (-), gross hematuria (-), incontinence (-) Skin; rash (-), pruritus (-) 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 General: Chronic ill- looking, obese,. HEENT: Normocephalic, atraumatic, nonicteric sclera, nonanemic conjunctive. Neck: Supple, without JVD or goiter or thyroid mass. Respiratory: Normal breathing effort, coarse breath sound bilaterally, no crackles no wheezing or rhonchi. Cardiovascular: Regular rate and rhythm, S1, S2 normal, no murmur no gallop. Gastrointestinal: Normal bowel sounds, nondistended, nontender, No ascites, , No masses, no hepatosplenomegaly. Extremities : No clubbing, No peripheral edema,. Integumentary: No rashes, petechia, suspected lesions. Lymphatics: No axilla or cervical lymphadenopathy. Neurology; alert awake oriented x3, no focal neurologic deficit, normal affection . mood and behavior. Assessment And Plan - Plan 73 yrs old Female with past medical history of anxiety, atrial fibrillation, hypertension, rheumatoid arthritis, pulmonary hypertension, morbid obesity, brought to ER with generalized weakness and fatigue for 3 days. 1. Recurrent acute cystitis with Enterococcus faecalis Urine culture sensitivity and identification reviewed, I I will keep her on cefepime for now and will change antibiotics to oral Augmentin #2 acute febrile illness Become afebrile, chest x-ray clear for pneumonia, procalcitonin elevated to 2.08, new Leukocytosis of 15K, blood culture preliminary no growth over 24-hour. No clear source of infection, I will keep her on cefepime , she tested negative for all respiratory pathogen panel including COVID-19, RSV, influenza A and B. 3. Permanent atrial fibrillation on rivaroxaban Borderline hypotension, heart rate at target, continue oral 12.5 mg metoprolol with holding parameter #4 borderline hypotension Differential diagnosis include secondary to medication induced, dehydration, sepsis Will started to taper off norepinephrine infusion, I will keep sildenafil and any diuretics on hold DVT prophylaxis; rivaroxaban Disposition; will keep the patient 1 more day of ICU care and try to taper off vasopressor today
[2024-07-21 00:19] LABS: CDIFF INTERNAL NEG CONTROL White Background (WHITE BKGD); STOOL CONSISTENCY Liquid/Semi-Solid
[2024-07-21 00:20] LABS: C.diff Antigen/Toxin Ag neg : Tox neg (NEG : NEG)
[2024-07-21 06:39] LABS: Absolute Lymphocytes (CBC) 1.1 K/uL (0.7-4.9); Absolute Monocytes 0.8 K/uL (0.1-1.3); Absolute Neutrophil 8.7 K/uL (1.8-8.0); Basophils % 0.3 % (0-1.3); Eosinophils % 0.1 % (0-4.4); Hematocrit 39.1 % (36.0-45.0); Lymphocytes % 10.1 % (15.3-44.8); MCH 28.8 pg (27.0-35.0); MCHC 33.1 g/dL (32.0-36.0); MCV 86.8 fL (80-100); MPV 8.7 fL (7.6-11.3); Monocytes % 7.9 % (3.3-12.3); Neutrophils % 81.6 % (41.7-73.7); Nucleated Red Blood Cells % 0.1 % (0-0); Platelets 170 thou/uL (152-406); RBC Red Blood Cell Count 4.51 M/uL (3.86-4.86); Red Cell Distribution Width 14.7 % (12.1-15.2)
[2024-07-21] MEDS ORDERED: NOREPINEPHRINE BITARTRATE/D5W 4 MG/250 ML BAG IV ONE (06:49)
[2024-07-21 06:57] LABS: Anion Gap 11.5 mEq/L (5.0-15.0); Magnesium 2.2 mg/dL (1.6-2.4); Phosphorus 2.1 mg/dL (2.5-4.9); Potassium 3.5 mEq/L (3.5-5.1)
[2024-07-21] MEDS: POTASS/SODIUM PHOSPHATE 1 PKT POWD.PACK PO SCH (08:05)
[2024-07-21] MEDS: POTASSIUM CL SA 10 MEQ TAB PO ONE (08:06)
[2024-07-21] MEDS: VANCOMYCIN 2 GM in NA CHLORIDE 0.9% 500 ML IVPB SCH (11:08)
--- NOTE | 2024-07-21 14:00 | P.PN ---
Subjective Date of Service: 07/21/24 Chief Complaint: UTI Subjective: New changes Patient appeared to be confused and disoriented, unable to taper off norepinephrine, denied any chest pain or toe pain or fever or chill. Review of Systems Other: Consitutional; fever(-), chills (-), rigor(-), night sweat(-), unintentional weight loss(-), malaise (-) HEENT; diplopia (-), rhinorrhea (-), epistaxis (-), otorrhea (-), otalgia (-) Respiratory; shortness of breath (+), wheezing (-), cough (+), sputum (+), pleuritic chest pain (-) Cardiovascular; chest pain (-), peripheral edema (-), paroxysmal nocturnal dyspnea (-), orthopnea (-) Gastrointestinal; nausea (-), vomiting (-), abdominal pain (-), diarrhea (-), constipation (-), melena (-), hematochezia (-) Genitourinary; urinary frequency (-), dysuria (-), urgency (-), flank pain (-), gross hematuria (-), incontinence (-) Skin; rash (-), pruritus (-) 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 General: Chronic ill- looking, morbidly obese,. HEENT: Normocephalic, atraumatic, nonicteric sclera, nonanemic conjunctive. Neck: Supple, without JVD or goiter or thyroid mass. Respiratory: Normal breathing effort, coarse breath sound bilaterally, no crackles no wheezing or rhonchi. Cardiovascular: Regular rate and rhythm, S1, S2 normal, no murmur no gallop. Gastrointestinal: Normal bowel sounds, nondistended, nontender, No ascites, , No masses, no hepatosplenomegaly. Ex tremities : +1/+ pretibial pitting edema, dry gangrenous change of the right toe, mild tenderness, no purulent discharge. Integumentary: No rashes, petechia, suspected lesions. Lymphatics: No axilla or cervical lymphadenopathy. Neurology; alert awake oriented x3, no focal neurologic deficit, normal affection . mood and behavior. Assessment And Plan - Plan 73 yrs old Female with past medical history of anxiety, atrial fibrillation, hypertension, rheumatoid arthritis, pulmonary hypertension, morbid obesity, brought to ER with generalized weakness and fatigue for 3 days. 1. Recurrent acute cystitis with Enterococcus faecalis Urine culture sensitivity and identification reviewed, I I will keep her on cefepime for now and will change antibiotics to oral Augmentin #2 likely septic shock The source of infection seems to be dry gangrene of the right toe with osteomyelitis, I will add IV vancomycin in addition to cefepime, leukocytosis resolved, no more fever, chest x-ray clear for pneumonia, procalcitonin elevated to 2.08, , blood culture preliminary no growth over 24-hour. I will consult general surgery for surgical debridement with without amputation of the toe, continue broad-spectrum antibiotics with norepinephrine infusion, diuretics and sildenafil on hold 3. Permanent atrial fibrillation on rivaroxaban Borderline hypotension, heart rate at target, continue oral 12.5 mg metoprolol with holding parameter #4 mild nonoliguric LILLIAM associated #2 Serum creatinine trending down, euvolemia, normokalemia DVT prophylaxis; rivaroxaban Disposition; patient continued need ICU care for vasopressor support, patient have a poor prognosis given multiple medical problems listed above
--- NOTE | 2024-07-21 18:47 | RAD REPORT ---
EXAMINATION: XR Foot Right 2 View CLINICAL INDICATION: Female, 73 years old. [facility] Right first toe infected wound TECHNIQUE: 3 view radiographs of the right foot were obtained. COMPARISON: No prior exam. FINDINGS: Diffuse osteopenia limits evaluation No evidence of acute fracture. Irregularity along the plantar aspect of the calcaneal head and neck, could relate to ongoing osteopenia or a destructive process.. Normal alignment. Moderate arthropathy at the tibiotalar articulation. No Focal bone lesion . Soft tissue swelling throughout the foot most pronounced along the dorsum. IMPRESSION: Questionable osseous lucency and irregularity along the plantar aspect of the calcaneal head and neck . If there is concern for ongoing acute osteomyelitis, additional evaluation by MRI would be helpful.
--- NOTE | 2024-07-21 20:18 | CON ---
Date of Consultation: 07/21/2024 Reason For Consultation: Right great toe infection. History Of Present Illness: The patient is a 73-year-old female who was admitted on 07/15 with sandra lopez in mental status. The patient has multiple medical problems. Initially, it was thought that she h ead UTI and is being treated for such. Her cultures did not grow any organism greater than 100,000. There was an organism that grew between 10 and 100,000, so I was asked to see if the right great toe was a source of possible infection. The patient did have high temperature and low blood pressure, r equired vasopressor support yesterday through today, so there was some question as to the source of h er septic shock. The patient is awake, however, she is confused, unable to provide any review of sys tems getting this information mostly from the medical records in the computer. There has been no pur ulent discharge. Minimal open wound on top of the toe, but no other significant clinical information I can ascertain at this time regarding the foot. The patient did have an arterial Doppler done a co uple years ago which was difficult because of her body habitus. Review of Systems: Otherwise unremarkable. Past Medical History: Significant for anxiety, atrial fibrillation, hypertension, rheumatoid arthrit is, pulmonary hypertension, morbid obesity. Surgical History: Left shoulder surgery, hysterectomy, right shoulder surgery, left elbow surgery. Allergies: REVIEWED INCLUDE CODEINE, FENTANYL, MORPHINE, BACTRIM. Social History: The patient does not smoke or drink alcohol. Family History: Not pertinent at this time. Physical Examination: Vital Signs: Currently are stable. She is on a very low dose of vasopressors. Temperature today is 98.0. General: She is awake, but confused. Head and Neck: No masses. Chest: Clear. Heart: S1, S2. Abdomen: Soft. Extremity: Diminished dorsalis pedis and posterior tibial pulses. Very difficult to feel those mook use she does have some quite a bit of edema. On her right great toe, there is redness. There is ten derness. There is a small open wound, but no fluctuance. There is edema as well, it appears to be i nfected. Laboratory Data: Reviewed. White count was 15.3 yesterday, today is 10.6. There is a left shift. Chemistry reviewed. Her procalcitonin was 2.08 yesterday and glucose was elevated yesterday. Assessment: A 73-year-old female with multiple medical problems with cellulitis, possible osteomyeli tis, right great toe with peripheral vascular disease. Recommendations: Continue IV antibiotics as ordered which includes cefepime as well as vancomycin. We will get an MRI and arterial Doppler to evaluate the circulation as well as whether the patient nolasco s bone infection or not, we will get an x-ray first as well and the MRI may help us elucidate whether there is any fluid collection that needs to be drained that is not clinically evident upon physical exam. We will follow this patient while in the hospital. Plan of care discussed in detail with the hospitalist team. /MODL Voice ID: [id number] Report ID: [id number]
[2024-07-21] MEDS: GUAIFENESIN 600 MG SA TAB PO SCH (21:23)
[2024-07-22 06:00] LABS: Absolute Lymphocytes (CBC) 0.8 K/uL (0.7-4.9); Absolute Monocytes 0.8 K/uL (0.1-1.3); Absolute Neutrophil 3.8 K/uL (1.8-8.0); Basophils % 0.5 % (0-1.3); Eosinophils % 0.2 % (0-4.4); Hematocrit 34.9 % (36.0-45.0); Hemoglobin 11.6 g/dL (12.0-15.0); MCH 29.1 pg (27.0-35.0); MCHC 33.3 g/dL (32.0-36.0); MCV 87.3 fL (80-100); MPV 8.6 fL (7.6-11.3); Monocytes % 14.4 % (3.3-12.3); Neutrophils % 70.9 % (41.7-73.7); Nucleated Red Blood Cells % 0.2 % (0-0); Platelets 147 thou/uL (152-406); RBC Red Blood Cell Count 3.99 M/uL (3.86-4.86); Red Cell Distribution Width 14.9 % (12.1-15.2)
[2024-07-22 06:19] LABS: Anion Gap 10.8 mEq/L (5.0-15.0); Phosphorus 2.8 mg/dL (2.5-4.9); Potassium 3.8 mEq/L (3.5-5.1)
[2024-07-22] MEDS: POTASSIUM CL SA 10 MEQ TAB PO ONE (08:43)
--- NOTE | 2024-07-22 08:53 | RAD REPORT ---
EXAMINATION: US Lower Extremity Arterial Bilat CLINICAL INDICATION: Female, 73 years old. [facility] Bilateral lower extremity peripheral vascular dis TECHNIQUE: Arterial duplex ultrasound of the bilateral lower extremities, with real-time, duplex, and spectral flow Doppler evaluation. COMPARISON: No prior exam. FINDINGS: Brachial artery systolic pressure is symmetric bilaterally. Grayscale: Grayscale: Moderate plaque. Right lower extremity: The LIVESTOCK TRADER through dorsalis pedis arteries are patent, with monophasic waveforms. Left lower extremity: The LIVESTOCK TRADER through dorsalis pedis arteries are patent, with monophasic waveforms. IMPRESSION: Moderate peripheral vascular disease bilaterally, with no evidence of occlusion.
[2024-07-22] MEDS: FUROSEMIDE 40 MG/4 ML VIAL IV ONE (09:38)
[2024-07-22] MEDS: MIDODRINE HCL 5 MG TABLET PO SCH (10:10)
[2024-07-22] MEDS: VANCOMYCIN 1.5 GM in NA CHLORIDE 0.9% 500 ML IVPB SCH (11:42)
--- NOTE | 2024-07-22 11:57 | P.PN ---
Subjective Date of Service: 07/22/24 Chief Complaint: UTI Subjective: No new changes Patient is still disoriented and confused, unable to taper off norepinephrine, denied any chest pain or toe pain or fever or chill. General surgeon saw the patient, suspected osteomyelitis of the right hallux, MRI of the foot ordered but unable to get it due to vasopressor infusion. Review of Systems is unable to be obtained Physical Examination - Vital Signs Temperature: 97.2 F Blood Pressure: 131/96 Pulse: 71 Respirations: 20 Pulse Ox (%): 99 - Physical Exam Other Physical/Emotional Findings: - Physical Exam. General: Chronic ill- looking, morbidly obese,. HEENT: Normocephalic, atraumatic, nonicteric sclera, nonanemic conjunctive. Neck: Supple, without JVD or goiter or thyroid mass. Respiratory: Normal breathing effort, coarse breath sound bilaterally, no crackles no wheezing or rhonchi. Cardiovascular: Regular rate and rhythm, S1, S2 normal, no murmur no gallop. Gastrointestinal: Normal bowel sounds, nondistended, nontender, No ascites, , No masses, no hepatosplenomegaly. Extremities : +1/+ pretibial pitting edema, dry gangrenous change of the right big toe, mild tenderness, no purulent discharge. Integumentary: No rashes, petechia, suspected lesions. Lymphatics: No axilla or cervical lymphadenopathy. Neurology; drowsy, easily arousable by verbal stimulation, oriented x1, no focal neurologic deficit, normal affection . mood and behavior. Assessment And Plan - Plan 73 yrs old Female with past medical history of anxiety, atrial fibrillation, hypertension, rheumatoid arthritis, pulmonary hypertension, morbid obesity, brought to ER with generalized weakness and fatigue for 3 days. 1. Recurrent acute cystitis with Enterococcus faecalis Urine culture sensitivity and identification reviewed, I will keep her on cefepime for now and will change antibiotics to oral Augmentin #2 likely osteomyelitis of right hallux complicated by septic shock General surgeon consulted for surgical debridement, a foot MRI ordered, I will keep IV vancomycin in addition to cefepime, leukocytosis resolved, no more fever, chest x-ray clear for pneumonia, procalcitonin elevated to 2.08, , blood culture preliminary no growth , I will start her on 5 mg midodrine and try to wean her off norepinephrine so MRI can be done. I will request a repeat CBC BMP tomorrow morning along with follow-up procalcitonin. 3. Permanent atrial fibrillation on rivaroxaban Borderline hypotension, heart rate at target, continue oral 12.5 mg metoprolol with holding parameter #4 mild nonoliguric LILLIAM associated #2 Serum creatinine stable at 1.08, hypervolemia, normokalemia, urine output over 24-hour 1 L, I will give 40 mg IV furosemide x 1 and resume oral furosemide, obtain follow-up chest x-ray tomorrow morning #5 ICU delirium rule out toxic encephalopathy related #2 I will hold quetiapine and reevaluate her mental status tomorrow DVT prophylaxis; rivaroxaban Disposition; patient continued need ICU care for vasopressor support, patient have a poor prognosis given multiple medical problems listed above
[2024-07-22] MEDS: FUROSEMIDE 20 MG TABLET PO SCH (17:26)
[2024-07-22] MEDS: ENSURE MAX PROTEIN 330 ML LIQUID PO SCH (20:11)
--- NOTE | 2024-07-22 20:20 | PN ---
Date of Progress Note: 07/22/2024 Subjective: Patient is awake, alert. Still confused. Her vital signs are stable, but she is still on vasopressors, still on very low dose which is being weaned down. Hopefully, we can get it off tojackie galvez and she can get an MRI either tonight or tomorrow morning. Objective: Vital Signs: Currently are stable, on vasopressors. She is afebrile. Extremities: Her physical exam shows increasing black eschar on the great toe, and redness and swell ing are still present. Laboratory Data: White count today is normal. Her arterial Doppler was reviewed. She has monophasic flow on both sides consistent with moderate pe ripheral vascular disease and she had an x-ray done which showed questionable osseous lucency ___ plantar aspect of the calcaneal head and neck. If there is concern for ongoing acute osteo, dexter tional evaluation by MRI would be helpful. Assessment: Right great toe infection, rule out osteomyelitis. Recommendations: Continue antibiotics and wean patient off vasopressors. Await MRI. She may need p eripheral vascular evaluation by Interventional Radiologist. We will Keep her NPO, in case the MRI i s done. We will proceed with debridement on that wound and depending on the findings, I will determi ne the exact nature of the surgical intervention. /MODL Voice ID: [id number] Report ID: [id number]
[2024-07-22] MEDS: IPRATROPIUM BROM 0.5MG/2.5ML NEB STA (21:15)
[2024-07-22] MEDS: ALBUTEROL 2.5 MG/3 ML NEB SOL NEB STA (21:15)
[2024-07-22] MEDS: HYDROMORPHONE HCL 1 MG/ML INJ IV ONE (22:23)
--- NOTE | 2024-07-22 22:26 | RAD REPORT ---
Procedure: Chest Single View HISTORY: Wheezing COMPARISON: July 19, 2024 FINDINGS: The lungs appear clear of acute infiltrate. No significant pleural effusion noted. The heart is moderately enlarged. PICC line in the SVC IMPRESSION: No acute abnormality is displayed.
[2024-07-23 04:34] LABS: Absolute Eosinophils 0.1 K/uL (0-0.5); Absolute Lymphocytes (CBC) 1.4 K/uL (0.7-4.9); Absolute Monocytes 1.1 K/uL (0.1-1.3); Absolute Neutrophil 4.1 K/uL (1.8-8.0); Basophils % 0.6 % (0-1.3); Eosinophils % 0.8 % (0-4.4); Hematocrit 38.2 % (36.0-45.0); Hemoglobin 12.9 g/dL (12.0-15.0); Lymphocytes % 20.5 % (15.3-44.8); MCH 29.1 pg (27.0-35.0); MCHC 33.8 g/dL (32.0-36.0); MCV 85.9 fL (80-100); MPV 8.7 fL (7.6-11.3); Neutrophils % 62.1 % (41.7-73.7); Nucleated Red Blood Cells % 0.1 % (0-0); Platelets 158 thou/uL (152-406); RBC Red Blood Cell Count 4.44 M/uL (3.86-4.86); Red Cell Distribution Width 14.8 % (12.1-15.2)
[2024-07-23 05:00] LABS: Phosphorus 2.9 mg/dL (2.5-4.9)
[2024-07-23] MEDS: MIDODRINE HCL 5 MG TABLET PO SCH (08:00)
--- NOTE | 2024-07-23 10:51 | P.PN ---
Subjective Date of Service: 07/23/24 Chief Complaint: UTI Subjective: No new changes Patient is still disoriented and confused, she has no complaint, currently on midodrine, norepinephrine infusion tapered off, planning on MRI of the foot and surgical debridement by general surgeon today. Review of Systems Other: Consitutional; fever(-), chills (-), rigor(-), night sweat(-), unintentional weight loss(-), malaise (+) HEENT; diplopia (-), rhinorrhea (-), epistaxis (-), otorrhea (-), otalgia (-) Respiratory; shortness of breath (-), wheezing (-), cough (-), sputum (-), pleuritic chest pain (-) Cardiovascular; chest pain (-), peripheral edema (-), paroxysmal nocturnal dyspnea (-), orthopnea (-) Gastrointestinal; nausea (-), vomiting (-), abdominal pain (-), diarrhea (-), constipation (-), melena (-), hematochezia (-) Genitourinary; urinary frequency (-), dysuria (-), urgency (-), flank pain (-), gross hematuria (-), incontinence (-) Skin; rash (-), pruritus (-) 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 General: Chronic ill- looking, morbidly obese,. HEENT: Normocephalic, atraumatic, nonicteric sclera, nonanemic conjunctive. Neck: Supple, without JVD or goiter or thyroid mass. Respiratory: Normal breathing effort, coarse breath sound bilaterally, no crackles no wheezing or rhonchi. Cardiovascular: Regular rate and rhythm, S1, S2 normal, no murmur no gallop. Gastrointestinal: Normal bowel sounds, nondist ended, nontender, No ascites, , No masses, no hepatosplenomegaly. Extremities : +1/+ pretibial pitting edema, dry gangrenous change of the right big toe, mild tenderness, no purulent discharge. Integumentary: No rashes, petechia, suspected lesions. Lymphatics: No axilla or cervical lymphadenopathy. Neurology; drowsy, easily arousable by verbal stimulation, oriented x1, no focal neurologic deficit, normal affection . mood and behavior. Assessment And Plan - Plan 73 yrs old Female with past medical history of anxiety, atrial fibrillation, hypertension, rheumatoid arthritis, pulmonary hypertension, morbid obesity, brought to ER with generalized weakness and fatigue for 3 days. 1. Recurrent acute cystitis with Enterococcus faecalis Urine culture sensitivity and identification reviewed, finished 7-day of culture specific antibiotics #2 likely osteomyelitis of right hallux complicated by septic shock Planning on surgical debridement, a foot MRI today. I will keep IV vancomycin in addition to cefepime, leukocytosis resolved, no more fever, chest x-ray clear for pneumonia, procalcitonin down to 0.5 from 2.08, , blood culture preliminary no growth , I will titrate her midodrine to 7.5 mg 3 times daily with holding parameter. 3. Permanent atrial fibrillation on rivaroxaban Borderline hypotension, heart rate at target, continue oral 12.5 mg metoprolol with holding parameter #4 mild nonoliguric LILLIAM associated #2 Serum creatinine stable at 1.5, hypervolemia, normokalemia, urine output over 24-hour 1 L, continue on oral furosemide, follow-up chest x-ray today personally reviewed, no acute finding #5 ICU delirium rule out toxic encephalopathy related #2 Reorientation, DVT prophylaxis; rivaroxaban Disposition; possible downgraded on the weekend patient have a poor prognosis given multiple medical problems listed above
--- NOTE | 2024-07-23 13:06 | PN ---
Date of Progress Note: 07/23/2024 Subjective: The patient is awake, confused. The patient is off vasopressors. Her MRI would not be done until later today. Objective: Vitals are stable. Blood pressure is still a little low, but she is asymptomatic from it and she is afebrile. On physical exam, there is not much significant change although the swelling h as gone down some. There is still red and some infected tissue in the tip of a toe on the right foot . Laboratory Data: Reviewed. Assessment: Infected right toe wound with cellulitis, possible osteomyelitis. Recommendations: We will continue on IV antibiotics and we will await MRI later today and tomorrow m orning. We will take the patient to Surgery and debride the wound. We are trying to reach the famil y to get an informed consent and will proceed accordingly based on the MRI results should the bone be involved and the patient may need a distal toe amputation, but I doubt that. We will see what the M RI shows first. /MODL Voice ID: [id number] Report ID: [id number]
--- NOTE | 2024-07-23 17:28 | RAD REPORT ---
EXAM: Foot Right Wo Cont HISTORY: right foot infected wound; eval for osteo COMPARISON: 07/21/2024 foot radiograph TECHNIQUE: Multiplanar multisequence MR images were obtained of the imaged foot without contrast. FINDINGS: No marrow signal abnormality is seen in the visualized bones to suggest osteomyelitis. No focal fluid collection is seen in the soft tissues. Generalized subcutaneous edema is present. There is an ulceration along the medial posterior aspect of the foot at the level of the first metatarsal head. The muscles and tendons appear grossly intact. IMPRESSION: No significant marrow signal abnormality to suggest osteomyelitis. Please note that evalu ation is limited without IV contrast. No fracture identified.
[2024-07-23] MEDS: NA CHLORIDE 0.9% 100 ML ONE (20:38)
[2024-07-24 05:58] LABS: Absolute Eosinophils 0.2 K/uL (0-0.5); Absolute Lymphocytes (CBC) 1.3 K/uL (0.7-4.9); Basophils % 0.6 % (0-1.3); Eosinophils % 2.4 % (0-4.4); Hematocrit 37.5 % (36.0-45.0); Hemoglobin 12.7 g/dL (12.0-15.0); Lymphocytes % 17.7 % (15.3-44.8); MCH 29.2 pg (27.0-35.0); MCHC 33.8 g/dL (32.0-36.0); MCV 86.4 fL (80-100); MPV 8.7 fL (7.6-11.3); Monocytes % 13.3 % (3.3-12.3); Platelets 199 thou/uL (152-406); RBC Red Blood Cell Count 4.34 M/uL (3.86-4.86); Red Cell Distribution Width 14.7 % (12.1-15.2)
[2024-07-24 06:11] LABS: Anion Gap 12.8 mEq/L (5.0-15.0); Magnesium 2.1 mg/dL (1.6-2.4); Phosphorus 2.2 mg/dL (2.5-4.9); Potassium 3.8 mEq/L (3.5-5.1)
[2024-07-24] MEDS: POTASSIUM PHOS IN 0.9 % NACL 15 MMOL/250 ML BAG IV ONE (06:30)
[2024-07-24] MEDS ORDERED: MIDAZOLAM HCL 2 MG/2 ML INJ ONE (08:42)
[2024-07-24] MEDS ORDERED: ONDANSETRON 4 MG/2 ML VIAL ONE (08:42)
[2024-07-24] MEDS ORDERED: LIDOCAINE 2% MPF 5 ML VIAL ONE (08:42)
[2024-07-24] MEDS ORDERED: propofoL 200 MG/20 ML VIAL IV ONE (08:42)
[2024-07-24] MEDS: NA CHLORIDE 0.9% 500 ML ONE (08:55)
[2024-07-24] MEDS ORDERED: EPHEDRINE SULF 50 MG/ML VIAL ONE (09:15)
[2024-07-24] MEDS: BUPIVACAINE 0.5% PF 10 ML VIAL ONE (09:25)
[2024-07-24] MEDS: COLLAGENASE 30 GM OINTMENT TOP ONE (09:32)
--- NOTE | 2024-07-24 09:44 | P.OP ---
Date of Service: 07/24/24 Preop diagnosis: Infected wound with gangrenous changes right great toe Postop diagnosis: Same Procedure performed: Excisional debridement of right great toe 3 x 3 cm to subcutaneous tissue Surgeon: Floyd Berman MD Sales Support Assistant: Cyndy MUNOZ Estimated blood loss: Minimal Specimen: Pus and debridement tissue for culture and sensitivity Findings: As above Anesthesia: General Complications: None Drains: None Fluids and blood products: Nonapplicable Disposition: Recovery room Operative note: Patient brought to the OR and placed in supine position. General anesthesia began. Patient prepped and draped in usual sterile fashion. Marcaine 0.5% infiltrated locally for postop pain control. Then sharp dissection proceeded around the distal half of the right first toe to debride all of the gangrenous black eschar changes. Around the nailbed there was pus present which was debrided and cultures were done of this very infected tissue. All of the black tissue was excised. Patient had adequate blood flow to this area. Bleeding was controlled with pressure and cautery. Then Santyl wet-to-dry dressing change was applied. Patient tolerated the procedure in stable condition and taken to recovery room in good general condition. CC:
[2024-07-24] MEDS: VANCOMYCIN 1.5 GM in NA CHLORIDE 0.9% 500 ML IVPB SCH (11:08)
--- NOTE | 2024-07-24 11:46 | P.PN ---
Subjective Date of Service: 07/24/24 Chief Complaint: UTI Subjective: Improving Patient is downstairs for surgical debridement today. The nurse at bedside report she is more alert and oriented, tolerating oral diet well, no respiratory distress. Review of Systems is unable to be obtained Physical Examination - Vital Signs Temperature: 98.6 F Blood Pressure: 112/54 Pulse: 57 Respirations: 18 Pulse Ox (%): 96 - Physical Exam Other Physical/Emotional Findings: - Assessment And Plan - Plan 73 yrs old Female with past medical history of anxiety, atrial fibrillation, hypertension, rheumatoid arthritis, pulmonary hypertension, morbid obesity, brought to ER with generalized weakness and fatigue for 3 days. 1. Recurrent acute cystitis with Enterococcus faecalis Urine culture sensitivity and identification reviewed, finished 7-day of culture specific antibiotics #2 Dry gangrenous cellulitis of right hallux complicated by septic shock Foot MRI result reviewed, no radiologic evidence of osteomyelitis, patient getting surgical debridement with surgical culture today. I will keep IV vancomycin in and cefepime, leukocytosis resolved, no more fever, chest x-ray clear for pneumonia, procalcitonin down to 0.5 from 2.08, , blood culture preliminary no growth , I will continue her midodrine to 7.5 mg 3 times daily with holding parameter. Off norepinephrine infusion 3. Permanent atrial fibrillation on rivaroxaban Borderline hypotension, heart rate at target, continue oral 12.5 mg metoprolol with holding parameter #4 mild nonoliguric LILLIAM associated #2 and nephrotoxic antibiotics (vancomycin) Serum creatinine stable around 1.5,, normokalemia, urine output over 24-hour 3 L, continue on oral furosemide, follow-up chest x-ray no acute finding, I will order a BMP tomorrow #5 ICU delirium rule out toxic encephalopathy related #2 Gradually improving DVT prophylaxis; rivaroxaban Disposition; possible downgraded on the weekend however patient has a poor prognosis given multiple medical problems listed above
[2024-07-24] MEDS ORDERED: MIDODRINE HCL 5 MG TABLET PO PRN (15:51)
[2024-07-24] MEDS: NYSTATIN PWDR 100000 UNIT/GM TOP PRN (16:01)
[2024-07-24] MEDS: ATORVASTATIN 40 MG TAB PO SCH (20:06)
[2024-07-24] MEDS: NA CHLORIDE 0.9% 100 ML ONE (20:16)
[2024-07-25] MEDS: HYDROMORPHONE HCL 1 MG/ML INJ IV ONE (04:28)
[2024-07-25 05:48] LABS: MPV 8.2 fL (7.6-11.3); RBC Red Blood Cell Count 4.37 M/uL (3.86-4.86)
[2024-07-25 06:00] LABS: Absolute Eosinophils 0.2 K/uL (0-0.5); Absolute Lymphocytes (CBC) 1.1 K/uL (0.7-4.9); Absolute Neutrophil 5.5 K/uL (1.8-8.0); Basophils % 0.5 % (0-1.3); Hematocrit 37.7 % (36.0-45.0); Hemoglobin 12.5 g/dL (12.0-15.0); Lymphocytes % 13.7 % (15.3-44.8); MCH 28.6 pg (27.0-35.0); MCHC 33.1 g/dL (32.0-36.0); MCV 86.2 fL (80-100); Monocytes % 12.2 % (3.3-12.3); Neutrophils % 70.6 % (41.7-73.7); Nucleated Red Blood Cells % 0.2 % (0-0); Platelets 218 thou/uL (152-406)
[2024-07-25 06:06] LABS: Anion Gap 12.6 mEq/L (5.0-15.0); Magnesium 1.9 mg/dL (1.6-2.4); Phosphorus 2.4 mg/dL (2.5-4.9); Potassium 3.6 mEq/L (3.5-5.1)
[2024-07-25] MEDS: POTASSIUM PHOS IN 0.9 % NACL 15 MMOL/250 ML BAG IV ONE (06:28)
[2024-07-25] MEDS: CLOPIDOGREL 75 MG TABLET PO SCH (07:34)
[2024-07-25] MEDS: LIDOCAINE 4% PATCH TOP SCH (10:09)
--- NOTE | 2024-07-25 10:14 | P.PN ---
Subjective Date of Service: 07/25/24 Chief Complaint: UTI Subjective: No new changes She is disoriented and confused after Dilaudid for her shoulder pain and knee pain. She is alert awake answer question but slow response. Her blood pressure has been good off norepinephrine, no midodrine as needed was given over the past 24 hours. Review of Systems Other: Consitutional; fever(-), chills (-), rigor(-), night sweat(-), unintentional weight loss(-), malaise (-) HEENT; diplopia (-), rhinorrhea (-), epistaxis (-), otorrhea (-), otalgia (-) Respiratory; shortness of breath (-), wheezing (-), cough (-), sputum (-), pleuritic chest pain (-) Cardiovascular; chest pain (-), peripheral edema (-), paroxysmal nocturnal dyspnea (-), orthopnea (-) Gastrointestinal; nausea (-), vomiting (-), abdominal pain (-), diarrhea (-), constipation (-), melena (-), hematochezia (-) Genitourinary; urinary frequency (-), dysuria (-), urgency (-), flank pain (-), gross hematuria (-), incontinence (-) Skin; rash (-), pruritus (-) Musculoskeletal; shoulder pain (+), 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 General: Obese, not acutely ill looking, in no apparent distress,. HEENT: Normocephalic, atraumatic, nonicteric sclera, nonanemic conjunctive. Neck: Supple, without JVD or goiter or thyroid mass. Respiratory: Normal breathing effort, clear to auscultation bilaterally, no crackles no wheezing or rhonchi. Cardiovascular: Regular rate and rhythm, S1, S2 normal, no murmur no gallop. Gastrointestinal: Normal bowel sounds, nondistended, nontender, No ascites, , No masses, no hepatosplenomegaly. Extremities : No clubbing, +1/+1 peripheral edema, right hallux in surgical dressing, no bleeding or discharge noted, tender to touch, palpable right dorsalis pedis, good perfusion. Integumentary: No rashes, petechia, suspected lesions. Lymphatics: No axilla or cervical lymphadenopathy. Neurology; alert awake oriented x3, no focal neurologic deficit, normal affection . mood and behavior. Assessment And Plan - Plan 73 yrs old Female with past medical history of anxiety, atrial fibrillation, hypertension, rheumatoid arthritis, pulmonary hypertension, morbid obesity, brought to ER with generalized weakness and fatigue for 3 days. 1. Recurrent acute cystitis with Enterococcus faecalis Urine culture sensitivity and identification reviewed, finished 7-day of culture specific antibiotics #2 Dry gangrenous cellulitis of right hallux complicated by septic shock status post surgical debridement on July 24 Slowly improving, Foot MRI no radiologic evidence of osteomyelitis, surgical culture pending, I will keep IV vancomycin in and cefepime, leukocytosis resolved, no more fever, chest x-ray clear for pneumonia, procalcitonin down to 0.5 from 2.08, , blood culture preliminary no growth , holding parameter. Off norepinephrine infusion now and midodrine as needed, 3. Permanent atrial fibrillation on rivaroxaban heart rate at target, continue oral 12.5 mg metoprolol with holding parameter #4 nonoliguric LILLIAM associated #2 and nephrotoxic antibiotics (vancomycin) Serum creatinine up to 2,, normokalemia, urine output over 24-hour 600ml, clinically euvolemia I will hold oral furosemide today, I will order a BMP tomorrow #5 ICU delirium rule out toxic encephalopathy related #2 Gradually improving DVT prophylaxis; rivaroxaban Disposition; possible downgraded on Friday, patient has a poor prognosis given multiple medical problems listed above
[2024-07-25] MEDS: VANCOMYCIN 1.5 GM in NA CHLORIDE 0.9% 500 ML IVPB SCH (11:00)
[2024-07-25] MEDS: HYDRALAZINE HCL 20 MG/ML VIAL IV PRN (11:01)
--- NOTE | 2024-07-25 14:27 | PN ---
Date of Progress Note: 07/25/2024 Subjective: Patient is awake, alert. No complaint. Vital signs are stable. She is afebrile. Her blood pressure is maintaining well. Her white count is 7.8. There is no left shift. The rest of e labs reviewed. Her wound cultures and Gram stain so far is showing mixed skin angela. We are await ing for the other Gram stain as well. Her wound dressing is clean, dry, and intact. Per the nurse, there was no evidence of any active infection. Wound is healing and looking well. Assessment: Status post debridement, right great toe. Recommendations: Continue wound care as ordered. The patient can follow up with me in the Wound [facility] upon discharge. Antibiotics as ordered. We will await cultures to adjust the antibiotic s as needed. The patient does not need 6 weeks of IV antibiotics as she does not have osteomyelitis, but I would recommend at least 10-14 days of oral antibiotics upon discharge based on the culture re ports. /MODL Voice ID: [id number] Report ID: [id number]
[2024-07-26 06:03] LABS: Anion Gap 15.7 mEq/L (5.0-15.0); Potassium 3.7 mEq/L (3.5-5.1)
[2024-07-26 06:52] LABS: Absolute Basophils 0.1 K/uL (0-0.5); Absolute Eosinophils 0.2 K/uL (0-0.5); Absolute Monocytes 1.2 K/uL (0.1-1.3); Absolute Neutrophil 7.5 K/uL (1.8-8.0); Basophils % 0.6 % (0-1.3); Eosinophils % 2.4 % (0-4.4); Hematocrit 37.4 % (36.0-45.0); Hemoglobin 12.4 g/dL (12.0-15.0); Lymphocytes % 10.2 % (15.3-44.8); MCH 28.3 pg (27.0-35.0); MCHC 33.2 g/dL (32.0-36.0); MCV 85.5 fL (80-100); MPV 8.4 fL (7.6-11.3); Monocytes % 11.7 % (3.3-12.3); Neutrophils % 75.1 % (41.7-73.7); Platelets 266 thou/uL (152-406); RBC Red Blood Cell Count 4.37 M/uL (3.86-4.86); Red Cell Distribution Width 15.1 % (12.1-15.2)
[2024-07-26 07:08] LABS: Albumin 2.2 g/dL (3.4-5.0); Albumin/Globulin Ratio 0.5 (1.1-1.8); Bilirubin Total 0.6 mg/dL (0.2-1.0); Globulin 4.2 g/dL (2.3-3.5); Magnesium 1.8 mg/dL (1.6-2.4); Protein, Total 6.4 g/dL (6.4-8.2)
[2024-07-26 08:49] LABS: Band Neutrophils 3 % (0-1); Blood Morphology Comment NOT SEEN (NOT SEEN); Differential Total Cells Count 100; Eosinophils 2 % (0-3); Lymphocytes 10 % (15-42); Monocytes 9 % (0-10); Platelet Estimate ADEQ; Segmented Neutrophils 73 % (40-80)
[2024-07-26] MEDS: KCL 20 MEQ/100 mL IVPB 20 MEQ/100 ML BAG IV SCH (10:20)
[2024-07-26] MEDS: MAGNESIUM SULFATE 1 gm IVPB 1 GM/100 ML BAG IV ONE (10:23)
[2024-07-26] MEDS: ALBUMIN HUMAN 25% 200 ML IV ONE (12:50)
[2024-07-27 04:48] LABS: Absolute Eosinophils 0.4 K/uL (0-0.5); Absolute Lymphocytes (CBC) 0.9 K/uL (0.7-4.9); Absolute Monocytes 0.9 K/uL (0.1-1.3); Absolute Neutrophil 5.7 K/uL (1.8-8.0); Basophils % 0.4 % (0-1.3); Eosinophils % 4.5 % (0-4.4); Hematocrit 33.2 % (36.0-45.0); Hemoglobin 11.5 g/dL (12.0-15.0); Lymphocytes % 11.9 % (15.3-44.8); MCH 28.9 pg (27.0-35.0); MCHC 34.5 g/dL (32.0-36.0); MCV 83.7 fL (80-100); MPV 7.8 fL (7.6-11.3); Monocytes % 10.9 % (3.3-12.3); Platelets 270 thou/uL (152-406); RBC Red Blood Cell Count 3.97 M/uL (3.86-4.86); Red Cell Distribution Width 15.4 % (12.1-15.2)
[2024-07-27 04:52] LABS: Neutrophils % 72.3 % (41.7-73.7)
[2024-07-27 05:08] LABS: Albumin 2.7 g/dL (3.4-5.0); Albumin/Globulin Ratio 0.7 (1.1-1.8); Anion Gap 12.5 mEq/L (5.0-15.0); Bilirubin Total 0.7 mg/dL (0.2-1.0); Globulin 3.8 g/dL (2.3-3.5); Magnesium 2.1 mg/dL (1.6-2.4); Potassium 3.5 mEq/L (3.5-5.1); Protein, Total 6.5 g/dL (6.4-8.2)
[2024-07-27] MEDS: NA CHLORIDE 0.9% 100 ML ONE (05:44)
[2024-07-27] MEDS: KCL 20 MEQ/100 mL IVPB 20 MEQ/100 ML BAG IV SCH (05:51)
[2024-07-27] MEDS: VANCOMYCIN 1.5 GM in NA CHLORIDE 0.9% 500 ML IVPB SCH (11:00)
--- NOTE | 2024-07-27 14:04 | RAD REPORT ---
EXAM: CT brain without contrast HISTORY: lethargic COMPARISON: 10/15/2023 TECHNIQUE: Multiple contiguous axial images were obtained and a CT of the brain without contrast. Sag ittal and coronal reformats were performed. One or more of the following dose reduction techniques were used: Automated exposure control, adjust ment of the mA and/or kV according to patient size, and/or iterative reconstruction. FINDINGS: No evidence of hydrocephalus, intracranial hemorrhage, or extra-axial fluid collection. The brain is normal in morphology. No evidence of midline shift or areas of brain edema. The calvarium is intact. The visualized paranasal sinuses and mastoid air cells are clear except for partial opacification of the left sphenoid.. IMPRESSION: No evidence of acute intracranial abnormality.
--- NOTE | 2024-07-27 14:19 | PN ---
Date of Progress Note: 07/26/2024 Subjective: The patient is resting comfortably. No acute distress. [facility] the regular floor. Objective: Vital Signs: Stable. She is slightly tachycardic, however, and she is afebrile. Wound: Her wound is clean. There is decreased erythema, warmth, and edema. There is no purulent di scharge. Laboratory Data: Gram stain on the OR cultures show gram-positive cocci in clusters 1+. We are awai ting culture and sensitivity. Assessment: Status post debridement of right first toe. Recommendations: Continue antibiotics. Adjust antibiotics based on the culture reports. The patien t can probably at this point take oral antibiotics. Discharge planning per the hospitalist team. Re -consult Surgery p.r.n. The patient can follow up with me [facility] the [facility] upon discharge . /MODL Voice ID: [id number] Report ID: [id number]
--- NOTE | 2024-07-27 14:51 | RAD REPORT ---
EXAM: Chest Single View HISTORY: sob COMPARISON: 07/22/2024 FINDINGS: LUNGS/PLEURA: The lungs are clear. No pleural effusions or pneumothorax. No pulmonary edema. MEDIASTINUM: The mediastinal silhouette is within normal limits. CARDIAC: Moderate cardiomegaly is similar. UPPER ABDOMEN: No significant abnormality. BONES: No acute abnormality. LINES/TUBES/OTHER: Right subclavian approach PICC with tip overlying the distal SVC in satisfactory p osition. IMPRESSION: No evidence of acute cardiopulmonary disease.
--- NOTE | 2024-07-27 16:15 | P.PN ---
Date of Service: 07/27/24 Subjective Confused today, CT, MRI of the brain ordered. Spoke with daughter, plan to keep patient full code at this time has been is on life support in the [facility]. Review of Systems Unable to be obtained due to confusion Physical Examination - Vital Signs Reviewed - Physical Exam General: Obese, not acutely ill looking, HEENT: Normocephalic, atraumatic, Neck: Supple, without JVD Respiratory: Crackles, Cardiovascular: Regular rate and rhythm, Gastrointestinal: Normal bowel sounds, nondistended, nontender, Extremities : peripheral edema, right hallux in surgical dressing, no bleeding or discharge noted, tender to touch, +2 pulses Integumentary: No rashes, petechia, suspected lesions. Lymphatics: No axilla or cervical lymphadenopathy. Neurology; eyes open to verbal, confused, no focal deficit Assessment And Plan - Plan 73 yrs old Female with past medical history of anxiety, atrial fibrillation, hypertension, rheumatoid arthritis, pulmonary hypertension, morbid obesity, brought to ER with generalized weakness and fatigue for 3 days. Recurrent acute cystitis with Enterococcus faecalis Urine culture sensitivity and identification reviewed, finished 7-day of culture specific antibiotics On meropenem Dry gangrenous cellulitis of right hallux complicated by septic shock status po st surgical debridement on July 24 Slowly improving, Foot MRI no radiologic evidence of osteomyelitis, surgical culture pending, I will keep IV vancomycin in and cefepime, leukocytosis resolved, no more fever, chest x-ray clear for pneumonia, procalcitonin down to 0.5 from 2.08, , blood culture preliminary no growth , holding parameter. Off norepinephrine infusion now and midodrine as needed, Acute on chronic heart failure Echo ordered Chest x-ray no abnormalities noted permanent atrial fibrillation on rivaroxaban heart rate at target, continue oral 12.5 mg metoprolol with holding parameter nonoliguric LILLIAM associated #2 and nephrotoxic antibiotics (vancomycin) Serum creatinine up to 2,, normokalemia, neph consulted ICU delirium rule out toxic encephalopathy CT brain neg, MRI reyna ordered DVT prophylaxis; rivaroxaban Disposition; possible downgraded on Friday, patient has a poor prognosis given multiple medical problems listed above Diet n.p.o. until more alert Full code DVT Xarelto <Cyndy Delatorre - Last Filed: 07/27/24 15:55> Patient was seen and examined. Events of the last 24 hours have been noted. Spoke with with LEIDY regarding patient's clinical picture after evaluating and examining the patient independently. I performed a substantial part of the MDM during this patient's care today. I personally made or approved the documented management plan and acknowledge its risk of complications. I agree with the findings and documentation provided in the LEIDY's notes. <Tori Mckenzie - Last Filed: 08/02/24 05:11>
[2024-07-27] MEDS: FUROSEMIDE 20 MG/ 2ML VIAL IV ONE (16:47)
[2024-07-27] MEDS: NA CHLORIDE 0.9% 1,000 ML IV SCH (16:48)
--- NOTE | 2024-07-27 19:50 | P.CNS ---
Date of Consult: 07/28/24 Reason for Consult: LILLIAM Requesting Physician: Tori Mckenzie Chief Complaint: UTI History of Present Illness: 73 yrs old Female with past medical history of anxiety, atrial fibrillation, hypertension, rheumatoid arthritis, pulmonary hypertension, morbid obesity, brought to ER with generalized weakness and fatigue. Patient states that she has not even eaten for 3 days and that her caregiver was not responsive since last night . Patient denies any chest pain or shortness of breath. No nausea vomiting or diarrhea. No fever or chills. Patient had a recent UTI as well and was admitted here in the hospital and was later found discharged home. Brought to ER back with similar kind of symptoms Patient was assessed in the ER and is admitted for further management of UTI [id number] 18:40 This 73 yrs old Female presents to ER via EMS with complaints of General Weakness. bo1 18:40 Pt has come in reporting that she has not eaten for 3 days and that her caregiver was bo1 not responsive since last night. The caregiver is in the other room #3.. Onset: The symptoms/episode began/occurred gradually. 19:59 Pt's usual caregiver is a pt in room #3. He is AMS. She called "911" on hi m and bo1 herself. Spouse states he was last seen last night. There were a lot of allegations of a personal nature including intake of ETOH - 80 proof. Pt is unable to respond "yes or no" to the allegation of ETOH abuse. Limited HPI/ ROS due to poor responsiveness. Allergies codeine Allergy (Verified 09/18/19 21:40) Itching fentanyl Allergy (Verified 05/22/21 18:09) Hives/Rash morphine Allergy (Verified 05/10/20 14:39) Hives/Rash sulfamethoxazole [From Bactrim] Allergy (Verified 09/18/19 21:40) Hives/Rash trimethoprim [From Bactrim] Allergy (Verified 09/18/19 21:40) Hives/Rash Home medications list reviewed: Yes Home Medications: Alprazolam [Xanax] 1 mg PO TID 08/16/21 Chlorzoxazone 1 tab PO TID 08/16/21 Rivaroxaban [Xarelto*] 1 tab PO DAILY 08/16/21 Tramadol HCl [Ultram] 1 tab PO Q6H PRN 10/16/23 Sildenafil Citrate [Sildenafil] 20 mg PO TID 07/16/24 - Past Medical/Surgical History Diabetic: No -: CHF/ Pulmonary hypertension -: Atrial fibrillation -: debility -: anxiety -: chronic pain -: HTN -: Rheumatoid Arthritis -: Obesity -: Hx LILLIAM (Dr. Lerma/ [place]) -: L shoulder august 2019 -: hysterectomy -: Right shoulder injury -: Fx left elbow with surgery Psychosocial/ Personal History: Patient lives at home with her - Social History Smoking Status: Unknown if ever smoked Alcohol use: No CD- Drugs: No Caffeine use: No Place of Residence: Home Review of Systems is unable to be obtained Physical Examination Temp Pulse Resp BP Pulse Ox 98.2 F 118 H 16 165/91 H 96 07/27/24 16:00 07/27/24 16:47 07/27/24 16:00 07/27/24 16:47 07/27/24 16:00 General: In no apparent distress HEENT: Atraumatic Neck: Supple Respiratory: Normal air movement, Rhonchi/gurgles (Upper Airway) Cardiovascular: Normal S1 S2, Edema Gastrointestinal: Soft and benign, Non-distended, No guarding Musculoskeletal: No clubbing, No contractures Integumentary: No rashes, No cyanosis Blood work reviewed in the chart. Imagings Data: EXAM: Chest Single View HISTORY: sob COMPARISON: 07/22/2024 FINDINGS: LUNGS/PLEURA: The lungs are clear. No pleural effusions or pneumothorax. No pulmonary edema. MEDIASTINUM: The mediastinal silhouette is within normal limits. CARDIAC: Moderate cardiomegaly is similar. UPPER ABDOMEN: No significant abnormality. BONES: No acute abnormality. LINES/TUBES/OTHER: Right subclavian approach PICC with tip overlying the distal SVC in satisfactory position. IMPRESSION: No evidence of acute cardiopulmonary disease. EXAM: Foot Right Wo Cont HISTORY: right foot infected wound; eval for osteo COMPARISON: 07/21/2024 foot radiograph TECHNIQUE: Multiplanar multisequence MR images were obtained of the imaged foot without contrast. FINDINGS: No marrow signal abnormality is seen in the visualized bones to suggest osteomyelitis. No focal fluid collection is seen in the soft tissues. Generalized subcutaneous edema is present. There is an ulceration along the medial posterior aspect of the foot at the level of the first metatarsal head. The muscles and tendons appear grossly intact. IMPRESSION: No significant marrow signal abnormality to suggest osteomyelitis. Please note that evaluation is limited without IV contrast. No fracture identified. LEFT VENTRICULAR WALL MOTION: NORMAL DOPPLER/COLOR FLOW: SEE BELOW COMMENTS: 1. NORMAL LEFT VENTRICULAR EJECTION FRACTION 50-55% 2. NORMAL WALL MOTION 3. LEFT ATRIAL ENLARGEMENT 4. ATRIAL FIBRILLATION 5. BI-ATRIAL ENLARGEMENT 6. SEVERE PULMONARY HYPERTENSION WITH RIGHT VENTRICULAR SYSTOLIC PRESSURE GR EATER THAN 60 mmHg Conclusions/Impression: Stage II LILLIAM may be due to intravascular hypovolemia in the setting of severe pulmonary hypertension -No NSAIDs -Change IVF 1/2NS Hypokalemia -Replete as ordered Hypophosphatemia -Replete prn HTN with Tachycardia -Change Metoprolol to IV q6h; titrate as needed Severe Pulmonary HTN Peripheral Edema/ Anasarca -Elevated BNP expected -Continue IVF Hypoalbuminemia -Continue Ensure as tolerated Anemia in chronic illness -Monitor H&H Recurrent UTI -Continue abx -ID to evaluate Toxic Metabolic Encephalopathy -Continue supportive care -Check ABG Case discussed with the hospitalist team Hospitalist and ER notes reviewed 40min patient care Thank you kindly for the consultation
[2024-07-27] MEDS: METOPROLOL TAR 25 MG TAB PO SCH (20:59)
--- NOTE | 2024-07-28 01:44 | P.PN ---
Date of Service: 07/26/24 Subjective patient clinically doing somewhat better. Patient with questionable toe infection. Patient had excision and debridement of the right toe. Concern for gangrene. Continue with IV antibiotics at this time. Transfer to general medical floor. Physical Examination - Vitals reviewed - Physical Exam General: Alert, Oriented x3, Mild distress, Obese Respiratory: Clear to auscultation bilaterally Cardiovascular: Normal pulses, Regular rate/rhythm Gastrointestinal: Soft and benign, W/out hepatosplenomegaly Musculoskeletal: No clubbing, No swelling Integumentary: No rashes, No breakdown Neurological: generalized weakness Assessment and Plan - Assessment/Plan Continue with plan of care as mentioned below: 1. Excisional debridement of the right great toe Continue with IV antibiotic therapy. Continue with wound care. May arrange for outpatient IV antibiotics. Will need to get fpc facility placement. 2. Recurrent UTI Continue with antibiotics as below. Continue with gentle hydration as tolerated. 3. Hyperlipidemia Continue statin 4. Atrial fibrillation Monitor under telemetry Rate controlled well now 5. Obesity Needs lifestyle modification GI/DVT prophylaxis Advanced directive full code Discharge Plan: Half-Way Plan to discharge in: 48 Hours - Advance Directives Does patient have a Living Will: No Does patient have a Durable POA for Healthcare: No - Code Status/Comfort Care Code Status: Full Code Time Spent Managing Pts Care (In Minutes): 25
--- NOTE | 2024-07-28 01:47 | P.PN ---
Date of Service: 07/28/24 Subjective Patient continues to decline. I have left a message with patient's daughter. Unfortunately I have not been able to touch base. Patient's is not doing well after he suffered a hemorrhagic stroke. Plan is to withdraw care. Patient's has always been the decision maker in for patient. Continue with current plan of care. Physical Examination - Vitals reviewed - Physical Exam General: Alert, Oriented x2, Mild distress, Obese Respiratory: Clear to auscultation bilaterally Cardiovascular: Normal pulses, Regular rate/rhythm Gastrointestinal: Soft and benign, W/out hepatosplenomegaly Musculoskeletal: No clubbing, No swelling Integumentary: right great toe with wound; clean/dry/intact Neurological: generalized weakness Assessment and Plan - Assessment/Plan Continue with plan of care as mentioned below: 1. Excisional debridement of the right great toe Continue with IV antibiotic therapy. Continue with wound care. May arrange for outpatient IV antibiotics. Will need to get care home facility placement. 2. Recurrent UTI Continue with antibiotics as below. Continue with gentle hydration as tolerated. 3. Hyperlipidemia Continue statin 4. Atrial fibrillation Monitor under telemetry Rate controlled well now 5. Obesity Needs lifestyle modification GI/DVT prophylaxis Advanced directive full code Discharge Plan: [facility] Plan to discharge in: 48 Hours - Advance Directives Does patient have a Living Will: No Does patient have a Durable POA for Healthcare: No - Code Status/Comfort Care Code Status: Full Code Time Spent Managing Pts Care (In Minutes): 25
--- NOTE | 2024-07-28 01:47 | P.PN ---
Date of Service: 07/27/24 Subjective Patient is not eating well. Appears to be intravascularly depleted. Will start gentle hydration as renal function worsens. Imaging studies pending as well. Patient baseline has a lot of neuropsychiatric issues and she does not really have a situation where she can be at home without someone staying there. Unfortunately, her had a hemorrhagic stroke and he is unlikely to be able to care for her anymore. According to family he may not survive the event. The family is not interested and caring for patient as she has been on kind to them throughout the life. Placement will be an issue as we will need someone to take over medical power of energy attorney and next of kin may not be willing to do so. Will need to discuss with the family Physical Examination - Vitals reviewed - Physical Exam General: Alert, Oriented x2, Mild distress, Obese Respiratory: Clear to auscultation bilaterally Cardiovascular: Normal pulses, Regular rate/rhythm Gastrointestinal: Soft and benign, W/out hepatosplenomegaly Musculoskeletal: No clubbing, No swelling Integumentary: right great toe with wound; clean/dry/intact Neurological: generalized weakness Assessment and Plan - Assessment/Plan Continue with plan of care as mentioned below: 1. Excisional debridement of the right great toe Continue with IV antibiotic therapy. Continue with wound care. May arrange for outpatient IV antibiotics. Will need to get residential facility placement. 2. Recurrent UTI Continue with antibiotics as below. Continue with gentle hydration as tolerated. 3. Hyperlipidemia Continue statin 4. Atrial fibrillation Monitor under telemetry Rate controlled well now 5. Obesity Needs lifestyle modification GI/DVT prophylaxis Advanced directive full code Discharge Plan: Long Term Plan to discharge in: 48 Hours - Advance Directives Does patient have a Living Will: No Does patient have a Durable POA for Healthcare: No - Code Status/Comfort Care Code Status: Full Code Time Spent Managing Pts Care (In Minutes): 25
[2024-07-28 04:34] LABS: Absolute Basophils 0.1 K/uL (0-0.5); Absolute Eosinophils 0.3 K/uL (0-0.5); Absolute Lymphocytes (CBC) 0.8 K/uL (0.7-4.9); Absolute Monocytes 0.9 K/uL (0.1-1.3); Absolute Neutrophil 8.6 K/uL (1.8-8.0); Basophils % 0.5 % (0-1.3); Eosinophils % 2.4 % (0-4.4); Hematocrit 35.3 % (36.0-45.0); Hemoglobin 11.8 g/dL (12.0-15.0); Lymphocytes % 7.5 % (15.3-44.8); MCH 28.9 pg (27.0-35.0); MCHC 33.5 g/dL (32.0-36.0); MCV 86.4 fL (80-100); MPV 7.4 fL (7.6-11.3); Monocytes % 8.4 % (3.3-12.3); Nucleated Red Blood Cells % 0.1 % (0-0); Platelets 318 thou/uL (152-406); RBC Red Blood Cell Count 4.09 M/uL (3.86-4.86); Red Cell Distribution Width 15.5 % (12.1-15.2)
[2024-07-28 04:38] LABS: Albumin 2.6 g/dL (3.4-5.0); Albumin/Globulin Ratio 0.7 (1.1-1.8); Anion Gap 15.5 mEq/L (5.0-15.0); Bilirubin Total 0.6 mg/dL (0.2-1.0); Globulin 3.9 g/dL (2.3-3.5); Potassium 3.5 mEq/L (3.5-5.1); Protein, Total 6.5 g/dL (6.4-8.2)
[2024-07-28 04:46] LABS: Neutrophils % 81.2 % (41.7-73.7)
[2024-07-28] MEDS: NACHLORIDE 0.45% 1,000 ML IV SCH (05:41)
[2024-07-28 10:20] LABS: Blood Gas THB 12.3 g/dl (12-18); Blood O2 Saturation 96.8 % (92-98.5)
[2024-07-28 10:21] LABS: Blood Gas Oxyhemoglobin 94.9 % (94-97)
[2024-07-28] MEDS: METOPROLOL TARTRATE 5 MG/5 ML INJ IV SCH (10:59)
[2024-07-28] MEDS: VANCOMYCIN 1.5 GM in NA CHLORIDE 0.9% 500 ML IVPB SCH (11:00)
[2024-07-28] MEDS ORDERED: VANCOMYCIN 1.5 GM in NA CHLORIDE 0.9% 500 ML IVPB SCH (11:00)
[2024-07-28] MEDS: KCL 20 MEQ/100 mL IVPB 100 ML IV ONE (12:28)
[2024-07-28] MEDS: KCL 20 MEQ/100 mL IVPB 20 MEQ/100 ML BAG IV SCH (12:39)
--- NOTE | 2024-07-28 13:19 | ECHO ---
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 2-DIMENSIONAL: YES M.MODE: YES DOPPLER: YES COLOR FLOW: YES TDS: YES PORTABLE: YES DEFINITY: BUBBLE STUDY: DIAGNOSIS: EVALUATE CONGESTIVE HEART FAILURE CARDIAC HISTORY: CATHERIZATION: SURGERY: PROSTHETIC VALVE: PACEMAKER: MEASUREMENTS (cm) DIASTOLIC (NORMALS) SYSTOLIC (NORMALS) IVSd 1.4 (0.6-1.2) LA Diam 4.6 (1.9-4.0) LVEF 52% LVIDd 3.8 (3.5-5.7) LVIDs 2.8 (2.0-3.5) %FS 26% LVPWd 1.4 (0.6-1.2) Ao Diam 2.9 (2.0-3.7) 2 DIMENSIONAL ASSESSMENT: RIGHT ATRIUM: NORMAL LEFT ATRIUM: DILATED RIGHT VENTRICLE: NORMAL LEFT VENTRICLE: NORMAL, MILD LEFT VENTRICULAR HYPERTROPHY TRICUSPID VALVE: MILD TRICUSPID REGURGITATION MITRAL VALVE: NORMAL, MILD MITRAL REGURGITATION PULMONIC VALVE: NORMAL AORTIC VALVE: NORMAL PERICARDIAL EFFUSION: NONE AORTIC ROOT: NORMAL LEFT VENTRICULAR WALL MOTION: NORMAL DOPPLER/COLOR FLOW: NOT ASSESSED COMMENTS: 1. NORMAL LEFT VENTRICULAR SYSTOLIC FUNCTION, EJECTION FRACTION 55-60%, NORMAL WALL MOTION 2. SEVERE PULMONARY HYPERTENSION, RIGHT VENTRICULAR SYSTOLIC PRESSURE GREATER THAN 60 mmHg TECHNOLOGIST: PAM CERDA
--- NOTE | 2024-07-28 18:10 | CON ---
History Of Present Illness: This is a 73-year-old female. I was consulted for urosepsis. The patie nt initially came in with past medical history of anxiety, atrial fibrillation, hypertension, rheumat oid arthritis, pulmonary hypertension, morbid obesity, came to the emergency room with generalized we akness and fatigue, not able to give much history. Most of the history was obtained through medical record and staff. I was consulted to evaluate for urinary tract infection secondary to Enterococcus faecalis. The patient is currently being treated with cefepime and vancomycin. She also has excisio nal debridement of the right great toe for gangrenous changes. Past Medical History: As per HPI. Social History: Nonsmoker, nondrinker. Family History: Noncontributory. Medications: Vancomycin, cefepime. See MAR for other medications. Allergies: CODEINE, FENTANYL, MORPHINE, BACTRIM. Review of Systems: Unable to obtain. Physical Examination: General: This is a 73-year-old female, lying in bed, not in any acute cardiopulmonary distress. Vital Signs: Temperature 98, pulse 100, respirations 14, blood pressure 130/87. HEENT: Unremarkable. Neck: Supple. Lungs: Basal crackles. Heart: S1, S2. Regular. Abdomen: Soft, nontender. Bowel sounds present. Extremities: Trace edema. Laboratory Data: Lab shows WBC 10.6, hemoglobin 11.8, platelets are 318. Chemistry shows BUN of 39, creatinine 4.4. Assessment And Plan: 1. Urosepsis secondary to Enterococcus faecalis. Consider stopping vancomycin and starting Zyvox as renal insufficiency is worsening. Stopping cefepime. 2. Anemia of chronic disease. 3. Gangrenous right big toe, status post surgical I and D. 4. Morbid obesity. We will continue to follow the patient and monitor signs of infection with WBC an d fever trends. Thank you for consult. NF/MODL Voice ID: [id number] Report ID: [id number]
[2024-07-28] MEDS: LINEZOLID 600 MG IVPB 600 MG/300 ML BAG IV SCH (21:50)
[2024-07-29 05:52] LABS: Absolute Basophils 0.1 K/uL (0-0.5); Absolute Eosinophils 0.4 K/uL (0-0.5); Absolute Lymphocytes (CBC) 1.1 K/uL (0.7-4.9); Absolute Monocytes 1.1 K/uL (0.1-1.3); Basophils % 0.5 % (0-1.3); Hematocrit 34.8 % (36.0-45.0); Hemoglobin 11.6 g/dL (12.0-15.0); Lymphocytes % 8.2 % (15.3-44.8); MCH 28.8 pg (27.0-35.0); MCHC 33.3 g/dL (32.0-36.0); MCV 86.4 fL (80-100); MPV 7.5 fL (7.6-11.3); Monocytes % 8.2 % (3.3-12.3); Neutrophils % 80.1 % (41.7-73.7); Platelets 360 thou/uL (152-406); RBC Red Blood Cell Count 4.03 M/uL (3.86-4.86); Red Cell Distribution Width 15.3 % (12.1-15.2)
[2024-07-29 06:06] LABS: AST/SGOT 14 U/L (15-37); Albumin 2.4 g/dL (3.4-5.0); Albumin/Globulin Ratio 0.6 (1.1-1.8); Alkaline Phosphatase 76 U/L (45-117); Anion Gap 13.6 mEq/L (5.0-15.0); BUN Blood Urea Nitrogen 44 mg/dL (7-18); Bicarbonate 21 mEq/L (21-32); Bilirubin Total 0.6 mg/dL (0.2-1.0); Globulin 3.9 g/dL (2.3-3.5); Glomerular Filtration Rate 17 ml/min (=/>90); Glucose Level 98 mg/dL (74-106); Magnesium 1.9 mg/dL (1.6-2.4); NT PRO-BNP 14306 pg/mL (<450); Potassium 3.6 mEq/L (3.5-5.1); Protein, Total 6.3 g/dL (6.4-8.2); Sodium Level 142 mEq/L (136-145)
[2024-07-29 06:07] LABS: ALT/SGPT < 14 U/L (13-56)
[2024-07-29 09:47] LABS: Blood Morphology Comment NOT SEEN (NOT SEEN); Platelet Estimate ADEQ; White Blood Cell Scan OK (OK)
[2024-07-29] MEDS ORDERED: VANCOMYCIN 1.5 GM in NA CHLORIDE 0.9% 500 ML IVPB SCH (11:00)
[2024-07-29] MEDS: METOPROLOL TARTRATE 5 MG/5 ML INJ IV SCH (11:29)
--- NOTE | 2024-07-29 12:09 | RAD REPORT ---
Procedure: Chest Single View HISTORY: Cough COMPARISON: none FINDINGS: The lungs appear clear of acute infiltrate. No significant pleural effusion noted. The heart is moderately enlarged. PICC line with its tip in the right atrium. IMPRESSION: No acute abnormality is displayed.
--- NOTE | 2024-07-29 22:46 | P.PN ---
Date of Service: 07/29/24 Vital Signs Temp Pulse Resp BP Pulse Ox 98.1 F 89 18 159/102 H 95 07/29/24 20:00 07/29/24 20:00 07/29/24 20:00 07/29/24 20:00 07/29/24 20:00 Medications Acetaminophen (Acetaminophen 325 Mg Tablet) 650 mg PO Q4HP PRN PRN Reason: Pain scale 2-4 (Mild) Last Admin: 07/19/24 21:02 Dose: 650 mg Acetaminophen (Acetaminophen 500 Mg Tab) 1,000 mg PO Q6H PRN PRN Reason: TEMP > 101' F Last Admin: 07/19/24 15:01 Dose: 1,000 mg Atorvastatin Calcium (Atorvastatin 40 Mg Tab) 40 mg PO BEDTIME [facility] [place] Last Admin: 07/29/24 20:44 Dose: Not Given Clopidogrel Bisulfate (Clopidogrel 75 Mg Tablet) 75 mg PO DAILY [facility] [place] Last Admin: 07/29/24 09:00 Dose: Not Given Dicyclomine HCl (Dicyclomine Hcl 10 Mg Cap) 20 mg PO DAILY [facility] [place] Last Admin: 07/29/24 09:00 Dose: Not Given Guaifenesin (Guaifenesin 600 Mg Sa Tab) 600 mg PO BID [facility] [place] Last Admin: 07/29/24 20:44 Dose: Not Given Hydralazine HCl (Hydralazine Hcl 20 Mg/Ml Vial) 10 mg IV Q6HP PRN PRN Reason: FOR SBP>160 OR DBP>100 [facility] Last Admin: 07/29/24 00:38 Dose: 10 mg Cefepime HCl 2 gm/ Sodium (Chloride) 100 mls @ 200 mls/hr IV Q12HR [facility] [place]; Protocol Last Admin: 07/29/24 20:43 Dose: 100 mls Sodium Chloride (Sodium Chloride 0.45%) 1,000 mls @ 100 mls/hr IV .Q10H [facility] Last Admin: 07/29/24 11:32 Dose: 1,000 mls Linezolid (Zyvox 600 Mg/300 Ml Ivpb (Premix)) 600 mg in 300 mls @ 300 mls/hr IV Q12HR [facility]; Protocol Last Admin: 07/29/24 20:42 Dose: 300 mls Lidocaine (Lidocaine 4% Patch) 1 patch TOP DAILY [facility] Last Admin: 07/29/24 11:33 Dose: 1 patch Metoprolol Tartrate (Metoprolol Tartrate 5 Mg/5 Ml Inj) 5 mg IV Q6H [facility] [place] Last Admin: 07/29/24 17:01 Dose: 5 mg Nystatin (Nystatin Pwdr 000259 Unit/Gm) 1 appl TOP BID PRN PRN Reason: RASH Last Admin: 07/25/24 23:00 Dose: 1 appl Ondansetron HCl (Ondansetron 4 Mg/2 Ml Vial) 4 mg IV Q6HP PRN PRN Reason: NAUSEA / VOMITING Pantoprazole Sodium (Pantoprazole 40mg Tablet) 40 mg PO ACB [facility] [place]; Protocol Last Admin: 07/29/24 07:30 Dose: Not Given Protein (Ensure Max Protein 330 Ml Liquid) 330 ml PO BID [facility] [place] Last Admin: 07/29/24 20:38 Dose: Not Given Rivaroxaban (Rivaroxaban 10 Mg Tablet) 10 mg PO DAILY [facility] [place] Last Admin: 07/29/24 09:00 Dose: Not Given Microbiology Results 07/15/24 19:11 Clean Catch Urine Pulteney Count - Final BETWEEN 10,000 & 100,000 CFU/ML 07/15/24 19:11 Clean Catch Urine - Final Enterococcus Faecalis Assessment/ Plan: Nephrology No dyspnea No chest pain More awake today than yesterday but still with limited communication No acute events overnight Vitals, medications, blood work and imaging reviewed in the chart General: In no apparent distress. Obese. HEENT: Atraumatic Neck: Supple Respiratory: Normal air movement Cardiovascular: Normal S1 S2, Edema Gastrointestinal: Soft and benign, Non-distended, No guarding Musculoskeletal: No clubbing, No contractures Integumentary: No rashes, No cyanosis Blood work reviewed in the chart. Imagings Data: EXAM: Chest Single View HISTORY: sob COMPARISON: 07/22/2024 FINDINGS: LUNGS/PLEURA: The lungs are clear. No pleural effusions or pneumothorax. No pulmonary edema. MEDIASTINUM: The mediastinal silhouette is within normal limits. CARDIAC: Moderate cardiomegaly is similar. UPPER ABDOMEN: No significant abnormality. BONES: No acute abnormality. LINES/TUBES/OTHER: Right subclavian approach PICC with tip overlying the distal SVC in satisfactory position. IMPRESSION: No evidence of acute cardiopulmonary disease. EXAM: Foot Right Wo Cont HISTORY: right foot infected wound; eval for osteo COMPARISON: 07/21/2024 foot radiograph TECHNIQUE: Multiplanar multisequence MR images were obtained of the imaged foot without contrast. FINDINGS: No marrow signal abnormality is seen in the visualized bones to suggest osteomyelitis. No focal fluid collection is seen in the soft tissues. Generalized subcutaneous edema is present. There is an ulceration along the medial posterior aspect of the foot at the level of the first metatarsal head. The muscles and tendons appear grossly intact. IMPRESSION: No significant marrow signal abnormality to suggest osteomyelitis. Please note that evaluation is limited without IV contrast. No fracture identified. LEFT VENTRICULAR WALL MOTION: NORMAL DOPPLER/COLOR FLOW: SEE BELOW COMMENTS: 1. NORMAL LEFT VENTRICULAR EJECTION FRACTION 50-55% 2. NORMAL WALL MOTION 3. LEFT ATRIAL ENLARGEMENT 4. ATRIAL FIBRILLATION 5. BI-ATRIAL ENLARGEMENT 6. SEVERE PULMONARY HYPERTENSION WITH RIGHT VENTRICULAR SYSTOLIC PRESSURE GREATER THAN 60 mmHg Conclusions/Impression: Stage II LILLIAM may be due to intravascular hypovolemia in the setting of severe pulmonary hypertension complicated by elevated vancomycin levels resulting in ATN -No NSAIDs -Continue IVF 1/2NS Hypokalemia -Replete prn Hypophosphatemia -Replete prn HTN with Tachycardia -Increase Metoprolol 5mg IV q6h Severe Pulmonary HTN Peripheral Edema/ Anasarca -Elevated BNP expected -Continue IVF -CXR reviewed Hypoalbuminemia -Continue Ensure as tolerated Anemia in chronic illness -Monitor H&H Recurrent UTI -Continue abx -ID to evaluate Toxic Metabolic Encephalopathy -Continue supportive care Case discussed with Dr. Mckenzie Hospitalist note reviewed
[2024-07-30 06:04] LABS: Anion Gap 12.4 mEq/L (5.0-15.0); Magnesium 1.8 mg/dL (1.6-2.4); Potassium 3.4 mEq/L (3.5-5.1)
[2024-07-30 06:18] LABS: Absolute Basophils 0.1 K/uL (0-0.5); Absolute Eosinophils 0.4 K/uL (0-0.5); Absolute Lymphocytes (CBC) 1.1 K/uL (0.7-4.9); Absolute Monocytes 1.2 K/uL (0.1-1.3); Absolute Neutrophil 13.6 K/uL (1.8-8.0); Basophils % 0.3 % (0-1.3); Eosinophils % 2.6 % (0-4.4); Hematocrit 35.3 % (36.0-45.0); Hemoglobin 11.6 g/dL (12.0-15.0); Lymphocytes % 6.5 % (15.3-44.8); MCH 28.6 pg (27.0-35.0); MCHC 32.8 g/dL (32.0-36.0); MCV 86.9 fL (80-100); MPV 7.7 fL (7.6-11.3); Monocytes % 7.4 % (3.3-12.3); Neutrophils % 83.2 % (41.7-73.7); Nucleated Red Blood Cells % 0.1 % (0-0); Platelets 330 thou/uL (152-406); RBC Red Blood Cell Count 4.05 M/uL (3.86-4.86); Red Cell Distribution Width 15.5 % (12.1-15.2)
--- NOTE | 2024-07-30 11:38 | P.PN ---
Nephrology (S) Pt seen lying in bed, awake but not conversing, on O2 but no distress noted, remains on IVF, barbosa in place, urine present, Vitals reviewed in the chart General: Appears chronically ill, NAD HEENT: Atraumatic, sclera anicteric, LFNC Neck: Supple Respiratory: Non tachypnec, b/l air entry, reduced at bases Cardiovascular: Non tachy, mostly regular Gastrointestinal: Soft, obese, NT, barbosa present Musculoskeletal: Pitting and non pitting edema of LE b/l, shins non tender Integumentary: Xerosis, other Neuro: Awake, tracks movement but does not verbalize or converse, not much spont movement of ext noted, no tremors or myoclonus observed Blood work reviewed in the chart. Conclusions/Impression: Stage II LILLIAM, evolving, likely multifactorial but with relative hypotension earlier in admission and likely development of intrinsic insult/ATN -Non anuric, monitor UOP closely -No emergent indication for WINDOWS DESKTOP SUPPORT yet. -Remains on IVF but would monitor fluid balance closely -Adjust meds for reduced CrCl -If becomes oligoanuric and CrCl is < 15 ml/min, would switch anticoagulant from Xarelto to other Pyuria, Enterococcus F bacteriuria POA -On Linezolid Abx currently -Chronic Pulmonary HTN, unspecified Chronic peripheral edema Elevation of BNP levels Cont close monitoring of fluid balance.
--- NOTE | 2024-07-30 18:22 | CON ---
Date of Consultation: 07/30/2024 Reason For Consultation: CHF exacerbation. History Of Present Illness: A 73-year-old female apparently was admitted to the hospital. She has h istory of atrial fibrillation, hypertension, rheumatoid arthritis, diastolic heart failure, presented with generalized weakness and lethargy, found to have urinary tract infection and also she became si gnificantly short of breath and fluid overloaded. I was consulted for congestive heart failure manag ement, status post debridement on the right great toe. Review of Systems: There is shortness of breath, orthopnea, and significant lower extremity edema. Poor historian. Physical Examination: Vital Signs: Reviewed. Head and Neck: Pupils reactive to light. Positive JVD. No cervical lymphadenopathy. Neck is suppl e. Thyroid is not enlarged. Lungs: Crackles in both lungs. No accessory muscle use or muscle retraction. Heart: Irregular. No extra sounds. Abdomen: Soft, nontender. Bowel sounds positive. No organomegaly. No masses or hernia. No rigidi ty or rebound. Extremities: Significant edema bilaterally. Neuro: Lethargic, but moving all extremities. Lymph Nodes: No cervical lymphadenopathy. Investigations: BUN is 47, creatinine is 3.2. NT-proBNP is 11,413. Assessment/recommendations: 1. Acute on chronic diastolic heart failure exacerbation, severely fluid overloaded. Recommend aggre ssive diuretics and consult with Nephrology. The problem is that her kidney function is worsening pr obably from other causes, but this patient needs aggressive diuresis. We will discuss the case furth er with Nephrology. 2. Atrial fibrillation, rate is controlled and on Xarelto. Continue current management. 3. Infection of the great toe, on antibiotics, status post debridement. Recommend evaluation for per ipheral vascular disease. 4. Dyslipidemia, on statin. To continue current therapy. SR/MODL Voice ID: [id number] Report ID: [id number]
[2024-07-30] MEDS: NACHLORIDE 0.45% 1,000 ML IV SCH (20:10)
[2024-07-31 05:03] LABS: Absolute Eosinophils 0.4 K/uL (0-0.5); Absolute Lymphocytes (CBC) 1.2 K/uL (0.7-4.9); Absolute Monocytes 1.3 K/uL (0.1-1.3); Basophils % 0.3 % (0-1.3); Eosinophils % 2.5 % (0-4.4); Hematocrit 33.7 % (36.0-45.0); Hemoglobin 11.4 g/dL (12.0-15.0); Lymphocytes % 7.4 % (15.3-44.8); MCH 28.7 pg (27.0-35.0); MCHC 33.7 g/dL (32.0-36.0); MCV 85.1 fL (80-100); MPV 7.9 fL (7.6-11.3); Neutrophils % 81.8 % (41.7-73.7); Platelets 307 thou/uL (152-406); RBC Red Blood Cell Count 3.96 M/uL (3.86-4.86); Red Cell Distribution Width 15.5 % (12.1-15.2)
[2024-07-31 05:29] LABS: AST/SGOT 12 U/L (15-37); Albumin/Globulin Ratio 0.5 (1.1-1.8); Alkaline Phosphatase 73 U/L (45-117); Anion Gap 13.3 mEq/L (5.0-15.0); BUN Blood Urea Nitrogen 50 mg/dL (7-18); Bicarbonate 19 mEq/L (21-32); Bilirubin Total 0.5 mg/dL (0.2-1.0); Globulin 3.7 g/dL (2.3-3.5); Glomerular Filtration Rate 14 ml/min (=/>90); Glucose Level 82 mg/dL (74-106); Magnesium 1.7 mg/dL (1.6-2.4); NT PRO-BNP 12012 pg/mL (<450); Potassium 3.3 mEq/L (3.5-5.1); Protein, Total 5.7 g/dL (6.4-8.2); Sodium Level 135 mEq/L (136-145)
[2024-07-31 06:04] LABS: ALT/SGPT < 14 U/L (13-56)
[2024-07-31] MEDS: KCL 20 MEQ/100 mL IVPB 20 MEQ/100 ML BAG IV SCH ×2 (06:28→10:00)
[2024-07-31] MEDS: FUROSEMIDE 40 MG/4 ML VIAL IV SCH ×2 (10:00→12:04)
[2024-07-31] MEDS: ALBUMIN HUMAN 25% 100 ML IV SCH (12:01)
[2024-07-31] MEDS ORDERED: FUROSEMIDE 40 MG/4 ML VIAL IV SCH (14:00)
--- NOTE | 2024-07-31 20:51 | P.PN ---
Date of Service: 07/29/24 Subjective Response to verbal, not talking or eating, Spoke with daughter, she is not willing to address CODE STATUS at this time Review of Systems Unable to be obtained due to confusion Physical Examination - Vital Signs Reviewed - Physical Exam General: Obese, not acutely ill looking, responds to verbal, afebrile HEENT: Normocephalic, atraumatic, Neck: Supple, without JVD Respiratory: Diminished, rhonchi, Cardiovascular: Regular rate and rhythm, Gastrointestinal: Normal bowel sounds, nondistended, nontender, Extremities : peripheral edema, right hallux in surgical dressing, no bleeding or discharge noted, tender to touch, +2 pulses Integumentary: Third spacing, Lymphatics: No axilla or cervical lymphadenopathy. Neurology; eyes open to verbal, confused, no focal deficit Assessment And Plan - Plan 73 yrs old Female with past medical history of anxiety, atrial fibrillation, hypertension, rheumatoid arthritis, pulmonary hypertension, morbid obesity, brought to ER with generalized weakness and fatigue for 3 days. Metabolic encephalopathy likely secondary to complicated cystitis CT brain neg, Acute hypoxic respiratory failure secondary to severe pulmonary hypertension Acute on chronic decompensated heart failure Fluid volume overload secondary to decompensated heart failure Pulmonary hypertension O2 2 L keep sats greater than 93% Cardiology consulted, Echo NORMAL LEFT VENTRICULAR SYSTOLIC FUNCTION, EJECTION FRACTION 55-60%, NORMAL WALL MOTION 2. SEVERE PULMONARY HYPERTENSION, RIGHT VENTRICULAR SYSTOLIC PRESSURE GREATER THAN 60 mmHg Chest x-ray no abnormalities noted Recurrent acute cystitis with Enterococcus faecalis Urine culture sensitivity and identification reviewed, finished 7-day of culture specific antibiotics On meropenem Dry gangrenous cellulitis of right hallux complicated by septic shock status post surgical debridement on July 24 improved Slowly improving, Foot MRI no radiologic evidence of osteomyelitis, surgical culture pending, I will keep IV vancomycin in and cefepime, leukocytosis resolved, no more fever, chest x-ray clear for pneumonia, procalcitonin down to 0.5 from 2.08, , blood culture preliminary no growth , holding parameter. Off norepinephrine infusion now and midodrine as needed, atrial fibrillation on rivaroxaban heart rate at target, continue oral 12.5 mg metoprolol with holding parameter nonoliguric LILLIAM associated #2 and nephrotoxic antibiotics (vancomycin) Serum creatinine up to 2,, normokalemia, neph consulted DVT prophylaxis; rivaroxaban Disposition; possible downgraded on Friday, patient has a poor prognosis given multiple medical problems listed above Diet n.p.o. until more alert Full code DVT Xarelto <Cyndy Delatorre - Last Filed: 07/31/24 20:51> Patient was seen and examined. Events of the last 24 hours have been noted. Spoke with with LEIDY regarding patient's clinical picture after evaluating and examining the patient independently. I performed a substantial part of the MDM during this patient's care today. I personally made or approved the documented management plan and acknowledge its risk of complications. I agree with the findings and documentation provided in the LEIDY's notes. <Tori Mckenzie - Last Filed: 08/02/24 05:14>
--- NOTE | 2024-07-31 20:55 | P.PN ---
Date of Service: 07/30/24 Subjective Eyes closed, eyes open to verbal, Refuses to speak, Review of Systems Unable to be obtained due to confusion Physical Examination - Vital Signs Reviewed - Physical Exam General: Obese, not acutely ill looking, HEENT: Normocephalic, atraumatic, Neck: Supple, without JVD Respiratory: Diminished, rhonchi, Cardiovascular: Regular rate and rhythm, Gastrointestinal: Normal bowel sounds, obese Extremities : right hallux in surgical dressing, Moderate peripheral edema Integumentary: Third spacing, Neurology; eyes open to verbal, confused, no focal deficit Assessment And Plan - Plan 73 yrs old Female with past medical history of anxiety, atrial fibrillation, hypertension, rheumatoid arthritis, pulmonary hypertension, morbid obesity, brought to ER with generalized weakness and fatigue for 3 days. Metabolic encephalopathy likely secondary to complicated cystitis CT brain neg, Acute hypoxic respiratory failure secondary to severe pulmonary hypertension Acute on chronic decompensated heart failure Fluid volume overload secondary to decompensated heart failure Elevated BNP Pulmonary hypertension O2 2 L keep sats greater than 93% Cardiology consulted, Echo NORMAL LEFT VENTRICULAR SYSTOLIC FUNCTION, EJECTION FRACTION 55-60%, NORMAL WALL MOTION 2. SEVERE PULMONARY HYPERTENSION, RIGHT VENTRICULAR SYSTOLIC PRESSURE GREATER THAN 60 mmHg Chest x-ray no abnormalities noted Recurrent acute cystitis with Enterococcus faecalis Leukocytosis Urine culture sensitivity and identification reviewed, finished 7-day of culture specific antibiotics On meropenem, on Zyvox, cefepime Dry gangrenous cellulitis of right hallux complicated by septic shock status post surgical debridement on July 24 improved Slowly improving, Foot MRI no radiologic evidence of osteomyelitis, , cefepime, Zyvox leukocytosis resolved, no more fever, chest x-ray clear for pneumonia, procalcitonin down to 0.5 from 2.08, , blood culture preliminary no growth , holding parameter. Off norepinephrine infusion now and midodrine as needed, Wound culture positive for Enterococcus faecalis,(on Zyvox) +2 fungi, (fluconazole start will need 7 days) 07/24 repeat cultures G+cocci (zyvoxi) atrial fibrillation on rivaroxaban heart rate at target, continue oral 12.5 mg metoprolol with holding parameter nonoliguric LILLIAM associated #2 and nephrotoxic antibiotics (vancomycin) Hypokalemia vanc changed to zyvox d/t lilliam Deferred IV fluids to nephrology neph following Trend electrolytes replace as needed DVT prophylaxis; rivaroxaban Disposition; possible downgraded on Friday, patient has a poor prognosis given multiple medical problems listed above Diet n.p.o. until more alert Full code Time spent with patient 20-minute <Cyndy Delatorre - Last Filed: 07/31/24 21:05> Patient was seen and examined. Events of the last 24 hours have been noted. Spoke with with LEIDY regarding patient's clinical picture after evaluating and examining the patient independently. I performed a substantial part of the MDM during this patient's care today. I personally made or approved the documented management plan and acknowledge its risk of complications. I agree with the findings and documentation provided in the LEIDY's notes. <Tori Mckenzie - Last Filed: 08/02/24 05:14>
--- NOTE | 2024-07-31 21:08 | P.PN ---
Date of Service: 07/31/24 Subjective More alert, follows with eyes, O2 2 L 97% Review of Systems Unable to be obtained due to confusion Physical Examination - Vital Signs Reviewed - Physical Exam General: Obese, not acutely ill looking, afebrile HEENT: supple Neck: Supple, without JVD Respiratory: Diminished, rhonchi, Cardiovascular: irregular rate and rhythm, Gastrointestinal: Normal bowel sounds, obese Extremities : right hallux in surgical dressing, Moderate peripheral edema Integumentary: Third spacing, Neurology; eyes open to verbal, confused, no focal deficit Assessment And Plan - Plan 73 yrs old Female with past medical history of anxiety, atrial fibrillation, hypertension, rheumatoid arthritis, pulmonary hypertension, morbid obesity, brought to ER with generalized weakness and fatigue for 3 days. Metabolic encephalopathy likely secondary to complicated cystitis CT brain neg, Fall precaution, Acute hypoxic respiratory failure secondary to severe pulmonary hypertension Acute on chronic decompensated heart failure Fluid volume overload secondary to decompensated heart failure Elevated BNP Pulmonary hypertension O2 2 L keep sats greater than 93% Cardiology consulted, Echo NORMAL LEFT VENTRICULAR SYSTOLIC FUNCTION, EJECTION FRACTION 55-60%, NORMAL WALL MOTION 2. SEVERE PULMONARY HYPERTENSION, RIGHT VENTRICULAR SYSTOLIC PRESSURE GREATER THAN 60 mmHg Chest x-ray no abnormalities noted IV albumin, Lasix given per cardiology's recommendation Recurrent acute cystitis with Enterococcus faecalis Leukocytosis Urine culture sensitivity and identification reviewed, finished 7-day of culture specific antibiotics On meropenem, on Zyvox, cefepime Dry gangrenous cellulitis of right hallux complicated by septic shock status post surgical debridement on July 24 improved Slowly improving, Foot MRI no radiologic evidence of osteomyelitis, , cefepime, Zyvox leukocytosis resolved, no more fever, chest x-ray clear for pneumonia, procalcitonin down to 0.5 from 2.08, , blood culture preliminary no growth , holding parameter. Off norepinephrine infusion now and midodrine as needed, Wound culture positive for Enterococcus faecalis,(on Zyvox) +2 fungi, (fluconazole start will need 7 days) 07/24 repeat cultures G+cocci (zyvoxi) atrial fibrillation on rivaroxaban heart rate at target, continue oral 12.5 mg metoprolol with holding parameter nonoliguric LILLIAM associated #2 and nephrotoxic antibiotics (vancomycin) Hypokalemia vanc changed to zyvox d/t lilliam Deferred IV fluids to nephrology neph following Trend electrolytes replace as needed DVT prophylaxis; rivaroxaban Disposition; possible downgraded on Friday, patient has a poor prognosis given multiple medical problems listed above Diet n.p.o. until more alert Full code Time spent with patient 25-minute <Cyndy Delatorre - Last Filed: 07/31/24 21:06> Patient was seen and examined. Events of the last 24 hours have been noted. Spoke with with LEIDY regarding patient's clinical picture after evaluating and examining the patient independently. I performed a substantial part of the MDM during this patient's care today. I personally made or approved the documented management plan and acknowledge its risk of complications. I agree with the findings and documentation provided in the LEIDY's notes. <Tori Mckenzie - Last Filed: 08/02/24 05:14>
--- NOTE | 2024-07-31 21:18 | P.PN ---
Date of Service: 07/31/24 Vital Signs Temp Pulse Resp BP Pulse Ox 98.7 F 70 19 119/61 97 07/31/24 16:00 07/31/24 16:00 07/31/24 16:00 07/31/24 16:00 07/31/24 16:00 Medications Acetaminophen (Acetaminophen 325 Mg Tablet) 650 mg PO Q4HP PRN PRN Reason: Pain scale 2-4 (Mild) Last Admin: 07/19/24 21:02 Dose: 650 mg Acetaminophen (Acetaminophen 500 Mg Tab) 1,000 mg PO Q6H PRN PRN Reason: TEMP > 101' F Last Admin: 07/19/24 15:01 Dose: 1,000 mg Atorvastatin Calcium (Atorvastatin 40 Mg Tab) 40 mg PO BEDTIME [facility] Last Admin: 07/30/24 19:26 Dose: Not Given Clopidogrel Bisulfate (Clopidogrel 75 Mg Tablet) 75 mg PO DAILY [facility] Last Admin: 07/31/24 07:41 Dose: Not Given Dicyclomine HCl (Dicyclomine Hcl 10 Mg Cap) 20 mg PO DAILY [facility] Last Admin: 07/31/24 07:41 Dose: Not Given Furosemide (Furosemide 40 Mg/4 Ml Vial) 40 mg IV Q8H [facility] Stop: 08/01/24 13:01 Last Admin: 07/31/24 12:04 Dose: 40 mg Guaifenesin (Guaifenesin 600 Mg Sa Tab) 600 mg PO BID [facility] Last Admin: 07/31/24 07:41 Dose: Not Given Hydralazine HCl (Hydralazine Hcl 20 Mg/Ml Vial) 10 mg IV Q6HP PRN PRN Reason: FOR SBP>160 OR DBP>100 [facility] Last Admin: 07/29/24 00:38 Dose: 10 mg Linezolid (Zyvox 600 Mg/300 Ml Ivpb (Premix)) 600 mg in 300 mls @ 300 mls/hr IV Q12HR [facility]; Protocol Last Admin: 07/31/24 08:52 Dose: 300 mls Cefepime HCl 1 gm/ Sodium (Chloride) 50 mls @ 100 mls/hr IV Q24H [facility]; Protocol Albumin Human (Albumin 25% 25 Gm) 100 mls @ 100 mls/hr IV Q6H [facility] Stop: 07/31/24 23:59 Last Admin: 07/31/24 17:22 Dose: 100 mls Fluconazole (Diflucan 200 Mg/100 Ml Ivpb (Premix)) 200 mg in 100 mls @ 100 mls/hr IV Q24H [facility]; Protocol Lidocaine (Lidocaine 4% Patch) 1 patch TOP DAILY [facility] Last Admin: 07/31/24 08:52 Dose: 1 patch Metoprolol Tartrate (Metoprolol Tartrate 5 Mg/5 Ml Inj) 5 mg IV Q6H [facility] Last Admin: 07/31/24 17:30 Dose: Not Given Ondansetron HCl (Ondansetron 4 Mg/2 Ml Vial) 4 mg IV Q6HP PRN PRN Reason: NAUSEA / VOMITING Pantoprazole Sodium (Pantoprazole 40mg Tablet) 40 mg PO ACB [facility]; Protocol Last Admin: 07/31/24 07:30 Dose: Not Given Protein (Ensure Max Protein 330 Ml Liquid) 330 ml PO BID [facility] Last Admin: 07/31/24 07:41 Dose: Not Given Rivaroxaban (Rivaroxaban 10 Mg Tablet) 10 mg PO DAILY [facility] Last Admin: 07/31/24 07:42 Dose: Not Given Microbiology Results 07/15/24 19:11 Clean Catch Urine [place] Count - Final BETWEEN 10,000 & 100,000 CFU/ML 07/15/24 19:11 Clean Catch Urine - Final Enterococcus Faecalis Assessment/ Plan: Nephrology No dyspnea No chest pain Limited IH/ ROS due to lack of communication No acute events overnight Vitals, medications, blood work and imaging reviewed in the chart General: In no apparent distress. Obese. HEENT: Atraumatic Neck: Supple Respiratory: Normal air movement Cardiovascular: Normal S1 S2, Edema Gastrointestinal: Soft and benign, Non-distended, No guarding Musculoskeletal: No clubbing, No contractures Integumentary: No rashes, No cyanosis Blood work reviewed in the chart. Imagings Data: EXAM: Chest Single View HISTORY: sob COMPARISON: 07/22/2024 FINDINGS: LUNGS/PLEURA: The lungs are clear. No pleural effusions or pneumothorax. No pulmonary edema. MEDIASTINUM: The mediastinal silhouette is within normal limits. CARDIAC: Moderate cardiomegaly is similar. UPPER ABDOMEN: No significant abnormality. BONES: No acute abnormality. LINES/TUBES/OTHER: Right subclavian approach PICC with tip overlying the distal SVC in satisfactory position. IMPRESSION: No evidence of acute cardiopulmonary disease. EXAM: Foot Right Wo Cont HISTORY: right foot infected wound; eval for osteo COMPARISON: 07/21/2024 foot radiograph TECHNIQUE: Multiplanar multisequence MR images were obtained of the imaged foot without contrast. FINDINGS: No marrow signal abnormality is seen in the visualized bones to suggest osteomyelitis. No focal fluid collection is seen in the soft tissues. Generalized subcutaneous edema is present. There is an ulceration along the medial posterior aspect of the foot at the level of the first metatarsal head. The muscles and tendons appear grossly intact. IMPRESSION: No significant marrow signal abnormality to suggest osteomyelitis. Please note that evaluation is limited without IV contrast. No fracture identified. LEFT VENTRICULAR WALL MOTION: NORMAL DOPPLER/COLOR FLOW: SEE BELOW COMMENTS: 1. NORMAL LEFT VENTRICULAR EJECTION FRACTION 50-55% 2. NORMAL WALL MOTION 3. LEFT ATRIAL ENLARGEMENT 4. ATRIAL FIBRILLATION 5. BI-ATRIAL ENLARGEMENT 6. SEVERE PULMONARY HYPERTENSION WITH RIGHT VENTRICULAR SYSTOLIC PRESSURE GREATER THAN 60 mmHg Conclusions/Impression: Stage II LILLIAM may be due to intravascular hypovolemia in the setting of severe pulmonary hypertension complicated by elevated vancomycin levels resulting in ATN -No NSAIDs -Discontinue IVF Hypokalemia -Replete as ordered -Consider spironolactone Hypophosphatemia -Replete prn HTN with Tachycardia -Continue Metoprolol 5mg IV q6h Severe Pulmonary HTN Peripheral Edema/ Anasarca -Elevated BNP expected -Start Lasix and Albumin -Consider spironolactone Hypoalbuminemia -Continue Ensure as tolerated Anemia in chronic illness -Monitor H&H Recurrent UTI -Continue abx -ID following Toxic Metabolic Encephalopathy -Continue supportive care Case discussed with Dr. Mckenzie Hospitalist note reviewed
[2024-07-31] MEDS: CEFEPIME 1 GM in NA CHLORIDE 0.9% 50 ML IV SCH (21:20)
[2024-07-31] MEDS: FLUCONAZOLE 200mg IVPB 200 MG/100 ML BAG IV SCH (21:44)
[2024-08-01 05:09] LABS: Absolute Basophils 0.1 K/uL (0-0.5); Absolute Eosinophils 0.2 K/uL (0-0.5); Absolute Lymphocytes (CBC) 0.9 K/uL (0.7-4.9); Absolute Monocytes 1.1 K/uL (0.1-1.3); Absolute Neutrophil 10.7 K/uL (1.8-8.0); Basophils % 0.4 % (0-1.3); Eosinophils % 1.9 % (0-4.4); Hematocrit 29.8 % (36.0-45.0); Hemoglobin 10.2 g/dL (12.0-15.0); MCHC 34.2 g/dL (32.0-36.0); MCV 84.8 fL (80-100); MPV 7.8 fL (7.6-11.3); Monocytes % 8.2 % (3.3-12.3); Neutrophils % 82.5 % (41.7-73.7); Platelets 255 thou/uL (152-406); RBC Red Blood Cell Count 3.51 M/uL (3.86-4.86); Red Cell Distribution Width 15.3 % (12.1-15.2)
[2024-08-01 05:31] LABS: AST/SGOT 11 U/L (15-37); Albumin 3.1 g/dL (3.4-5.0); Alkaline Phosphatase 64 U/L (45-117); Anion Gap 16.2 mEq/L (5.0-15.0); BUN Blood Urea Nitrogen 52 mg/dL (7-18); Bicarbonate 19 mEq/L (21-32); Bilirubin Total 0.7 mg/dL (0.2-1.0); Globulin 3.1 g/dL (2.3-3.5); Glomerular Filtration Rate 12 ml/min (=/>90); Glucose Level 79 mg/dL (74-106); NT PRO-BNP 15594 pg/mL (<450); Phosphorus 2.7 mg/dL (2.5-4.9); Potassium 3.2 mEq/L (3.5-5.1); Protein, Total 6.2 g/dL (6.4-8.2); Sodium Level 138 mEq/L (136-145); Uric Acid 9.3 mg/dL (2.6-6.0)
[2024-08-01 05:52] LABS: ALT/SGPT < 14 U/L (13-56)
[2024-08-01] MEDS: NACHLORIDE 0.45% 1,000 ML with NA BICARB 8.4% 50 MEQ IV SCH (08:24)
[2024-08-01] MEDS: KCL 20 MEQ/100 mL IVPB 20 MEQ/100 ML BAG IV SCH (08:26)
[2024-08-01] MEDS ORDERED: ACETAMINOPHEN 325 MG TABLET PO PRN (12:15)
[2024-08-01] MEDS: CEFEPIME 1 GM in NA CHLORIDE 0.9% 100 ML IV SCH (12:41)
--- NOTE | 2024-08-01 15:33 | P.PN ---
Date of Service: 08/01/24 Subjective More alert, follows with eyes, O2 2 L 97% redness to shoulder, patient has been scratching her arms Review of Systems Unable to be obtained due to confusion Physical Examination - Vital Signs Reviewed - Physical Exam General: Obese, not acutely ill looking, afebrile, confused, non verbal HEENT: supple Neck: Supple, without JVD Respiratory: diminhsed, rhonchi, Cardiovascular: irregular rate and rhythm, Gastrointestinal: Normal bowel sounds, obese Extremities : right hallux in surgical dressing, Moderate peripheral edema Integumentary: erythema, Third spacing, Neurology; eyes open to verbal, confused, no focal deficit Assessment And Plan - Plan 73 yrs old Female with past medical history of anxiety, atrial fibrillation, hy pertension, rheumatoid arthritis, pulmonary hypertension, morbid obesity, brought to ER with generalized weakness and fatigue for 3 days. Metabolic encephalopathy likely secondary to complicated cystitis CT brain neg, Fall precaution, Acute hypoxic respiratory failure secondary to severe pulmonary hypertension Acute on chronic decompensated heart failure Fluid volume overload secondary to decompensated heart failure Elevated BNP Pulmonary hypertension O2 2 L keep sats greater than 93% Cardiology consulted, Echo NORMAL LEFT VENTRICULAR SYSTOLIC FUNCTION, EJECTION FRACTION 55-60%, NORMAL WALL MOTION 2. SEVERE PULMONARY HYPERTENSION, RIGHT VENTRICULAR SYSTOLIC PRESSURE GREATER THAN 60 mmHg Chest x-ray no abnormalities noted IV albumin, Lasix given per cardiology's recommendation Recurrent acute cystitis with Enterococcus faecalis Leukocytosis Urine culture sensitivity and identification reviewed, finished 7-day of culture specific antibiotics On meropenem, on Zyvox, cefepime Dry gangrenous cellulitis of right hallux complicated by septic shock status post surgical debridement on July 24 improved Slowly improving, Foot MRI no radiologic evidence of osteomyelitis, , cefepime, Zyvox leukocytosis resolved, no more fever, chest x-ray clear for pneumonia, procalcitonin down to 0.5 from 2.08, , blood culture preliminary no growth , holding parameter. Off norepinephrine infusion now and midodrine as needed, Wound culture positive for Enterococcus faecalis,(on Zyvox) +2 fungi, (fluconazole start will need 7 days) 2/ repeat cultures G+cocci (zyvoxi) atrial fibrillation on rivaroxaban heart rate at target, continue oral 12.5 mg metoprolol with holding parameter nonoliguric LILLIAM associated #2 and nephrotoxic antibiotics (vancomycin) Hypokalemia vanc changed to zyvox d/t lilliam Deferred IV fluids to nephrology neph following Trend electrolytes replace as needed DVT prophylaxis; rivaroxaban Disposition; possible downgraded on Friday, patient has a poor prognosis given multiple medical problems listed above Diet cardiac Full code Time spent with patient 25-minute <Cyndy Delatorre - Last Filed: 08/01/24 15:33> Patient was seen and examined. Events of the last 24 hours have been noted. Spoke with with LEIDY regarding patient's clinical picture after evaluating and examining the patient independently. I performed a substantial part of the MDM during this patient's care today. I personally made or approved the documented management plan and acknowledge its risk of complications. I agree with the findings and documentation provided in the LEIDY's notes. <Tori Mckenzie - Last Filed: 08/02/24 05:14>
--- NOTE | 2024-08-01 16:22 | P.PN ---
Date of Service: 08/01/24 Vital Signs Temp Pulse Resp BP Pulse Ox 97.9 F 89 24 H 138/63 97 08/01/24 12:00 08/01/24 12:00 08/01/24 12:00 08/01/24 12:00 08/01/24 12:00 Medications Acetaminophen (Acetaminophen 325 Mg Tablet) 650 mg PO Q6H PRN PRN Reason: Mild pain/fever Clopidogrel Bisulfate (Clopidogrel 75 Mg Tablet) 75 mg PO DAILY [facility] Last Admin: 08/01/24 08:15 Dose: Not Given Dicyclomine HCl (Dicyclomine Hcl 10 Mg Cap) 20 mg PO DAILY [facility] Last Admin: 08/01/24 08:13 Dose: Not Given Guaifenesin (Guaifenesin 600 Mg Sa Tab) 600 mg PO BID [facility] Last Admin: 08/01/24 08:14 Dose: Not Given Hydralazine HCl (Hydralazine Hcl 20 Mg/Ml Vial) 10 mg IV Q6HP PRN PRN Reason: FOR SBP>160 OR DBP>100 [facility] Last Admin: 08/01/24 08:27 Dose: 10 mg Fluconazole (Diflucan 200 Mg/100 Ml Ivpb (Premix)) 200 mg in 100 mls @ 100 mls/hr IV Q24H [facility]; Protocol Stop: 08/07/24 22:01 Last Admin: 07/31/24 21:44 Dose: 100 mls Sodium Bicarbonate 50 meq/ (Sodium Chloride) 1,050 mls @ 50 mls/hr IV .Q21H [facility] Last Admin: 08/01/24 08:24 Dose: 1,050 mls Cefepime HCl 1 gm/ Sodium (Chloride) 100 mls @ 200 mls/hr IV DAILY [facility]; Protocol Last Admin: 08/01/24 12:41 Dose: 100 mls Lidocaine (Lidocaine 4% Patch) 1 patch TOP DAILY [facility] Last Admin: 08/01/24 08:29 Dose: 1 patch Metoprolol Tartrate (Metoprolol Tartrate 5 Mg/5 Ml Inj) 5 mg IV Q6H [facility] Last Admin: 08/01/24 11:40 Dose: 5 mg Ondansetron HCl (Ondansetron 4 Mg/2 Ml Vial) 4 mg IV Q6HP PRN PRN Reason: NAUSEA / VOMITING Pantoprazole Sodium (Pantoprazole 40mg Tablet) 40 mg PO ACB [facility]; Protocol Last Admin: 08/01/24 07:30 Dose: Not Given Protein (Ensure Max Protein 330 Ml Liquid) 330 ml PO BID [facility] Last Admin: 08/01/24 08:14 Dose: Not Given Rivaroxaban (Rivaroxaban 10 Mg Tablet) 10 mg PO DAILY [facility] Last Admin: 08/01/24 08:15 Dose: Not Given Microbiology Results 07/15/24 19:11 Clean Catch Urine [place] Count - Final BETWEEN 10,000 & 100,000 CFU/ML 07/15/24 19:11 Clean Catch Urine - Final Enterococcus Faecalis Assessment/ Plan: Nephrology No dyspnea No chest pain Limited IH/ ROS due to lack of communication No acute events overnight Vitals, medications, blood work and imaging reviewed in the chart General: In no apparent distress. Obese. HEENT: Atraumatic Neck: Supple Respiratory: Normal air movement Cardiovascular: Normal S1 S2, Edema Gastrointestinal: Soft and benign, Non-distended, No guarding Musculoskeletal: No clubbing, No contractures Integumentary: No rashes, No cyanosis [place] Blood work reviewed in the chart. Imagings Data: EXAM: Chest Single View HISTORY: sob COMPARISON: 07/22/2024 FINDINGS: LUNGS/PLEURA: The lungs are clear. No pleural effusions or pneumothorax. No pulmonary edema. MEDIASTINUM: The mediastinal silhouette is within normal limits. CARDIAC: Moderate cardiomegaly is similar. UPPER ABDOMEN: No significant abnormality. BONES: No acute abnormality. LINES/TUBES/OTHER: Right subclavian approach PICC with tip overlying the distal SVC in satisfactory position. IMPRESSION: No evidence of acute cardiopulmonary disease. EXAM: Foot Right Wo Cont HISTORY: right foot infected wound; eval for osteo COMPARISON: 07/21/2024 foot radiograph TECHNIQUE: Multiplanar multisequence MR images were obtained of the imaged foot without contrast. FINDINGS: No marrow signal abnormality is seen in the visualized bones to suggest osteomyelitis. No focal fluid collection is seen in the soft tissues. Generalized subcutaneous edema is present. There is an ulceration along the medial posterior aspect of the foot at the level of the first metatarsal head. The muscles and tendons appear grossly intact. IMPRESSION: No significant marrow signal abnormality to suggest osteomyelitis. Please note that evaluation is limited without IV contrast. No fracture identified. LEFT VENTRICULAR WALL MOTION: NORMAL DOPPLER/COLOR FLOW: SEE BELOW COMMENTS: 1. NORMAL LEFT VENTRICULAR EJECTION FRACTION 50-55% 2. NORMAL WALL MOTION 3. LEFT ATRIAL ENLARGEMENT 4. ATRIAL FIBRILLATION 5. BI-ATRIAL ENLARGEMENT 6. SEVERE PULMONARY HYPERTENSION WITH RIGHT VENTRICULAR SYSTOLIC PRESSURE GREATER THAN 60 mmHg Conclusions/Impression: Stage II LILLIAM may be due to intravascular hypovolemia in the setting of severe pulmonary hypertension complicated by elevated vancomycin levels resulting in ATN -No NSAIDs Hypokalemia -Replete as ordered Hypophosphatemia -Replete prn HTN with Tachycardia -Continue Metoprolol 5mg IV q6h Severe Pulmonary HTN Peripheral Edema/ Anasarca -Elevated BNP expected Hypoalbuminemia -Continue Ensure as tolerated Anemia in chronic illness -Monitor H&H Recurrent UTI -Continue abx -ID following Toxic Metabolic Encephalopathy -Continue supportive care Case discussed with the hospitalist team Hospitalist note reviewed
[2024-08-02] MEDS: KCL 20 MEQ/100 mL IVPB 20 MEQ/100 ML BAG IV SCH (00:22)
[2024-08-02 04:48] LABS: Absolute Basophils 0.1 K/uL (0-0.5); Absolute Eosinophils 0.2 K/uL (0-0.5); Absolute Lymphocytes (CBC) 0.9 K/uL (0.7-4.9); Absolute Monocytes 1.2 K/uL (0.1-1.3); Absolute Neutrophil 11.6 K/uL (1.8-8.0); Basophils % 0.6 % (0-1.3); Eosinophils % 1.5 % (0-4.4); Hematocrit 31.6 % (36.0-45.0); Hemoglobin 10.6 g/dL (12.0-15.0); Lymphocytes % 6.7 % (15.3-44.8); MCH 28.4 pg (27.0-35.0); MCHC 33.4 g/dL (32.0-36.0); MCV 85.1 fL (80-100); MPV 8.3 fL (7.6-11.3); Monocytes % 8.3 % (3.3-12.3); Neutrophils % 82.9 % (41.7-73.7); Platelets 278 thou/uL (152-406); RBC Red Blood Cell Count 3.72 M/uL (3.86-4.86); Red Cell Distribution Width 15.4 % (12.1-15.2)
[2024-08-02 04:51] LABS: UR PROTEIN 67.6 mg/dL (<11.9)
[2024-08-02 04:52] LABS: UR CREAT < 18.0 mg/dL (20-320)
[2024-08-02 05:02] LABS: Calcium Oxalate Crystals- Ur Few /HPF (None Seen); Specific Gravity 1.007 (1.005-1.030); Sqamous Epithelial <5 /HPF (None Seen); Urine Bacteria <20 /HPF (<20); Urine Bilirubin NEGATIVE (Negative); Urine Blood 1+ (Negative); Urine Clarity Extremely Turbid (Clear); Urine Color Colorless (Yellow); Urine Culture Reflex Order REFLEXED; Urine Glucose NEGATIVE (Negative); Urine Ketones 1+ (Negative); Urine Micro Reflex YN NO BILL MICROSCOPIC; Urine Mucus Slight /HPF (None Seen); Urine Nitrite NEGATIVE (Negative); Urine Protein 1+ (Negative); Urine RBC 21-50 /HPF (None Seen); Urine Urobilinogen Normal (Normal)
[2024-08-02 05:07] LABS: AST/SGOT 11 U/L (15-37); Albumin 2.7 g/dL (3.4-5.0); Albumin/Globulin Ratio 0.8 (1.1-1.8); Alkaline Phosphatase 70 U/L (45-117); Anion Gap 13.9 mEq/L (5.0-15.0); BUN Blood Urea Nitrogen 52 mg/dL (7-18); Bicarbonate 21 mEq/L (21-32); Bilirubin Total 0.6 mg/dL (0.2-1.0); Globulin 3.3 g/dL (2.3-3.5); Glomerular Filtration Rate 11 ml/min (=/>90); Glucose Level 75 mg/dL (74-106); Potassium 3.9 mEq/L (3.5-5.1); Sodium Level 137 mEq/L (136-145); Uric Acid 9.5 mg/dL (2.6-6.0)
[2024-08-02 05:11] LABS: ALT/SGPT < 14 U/L (13-56)
--- NOTE | 2024-08-02 05:20 | P.PN ---
Date of Service: 08/01/24 I was able to get a hold of patient's daughter. Patient's today after they withdrew care. Patient's daughter states that she is willing to be patient's medical power of ore tester, but she does not really feel that her mother is wanting to get better at this point. Patient's used to make all her decisions for her. He has to care for her 247 with the control engineer. Patient has had multiple psychiatric issues in the past and whenever she does not want to talk she tends to be dismissive. She appears to be catatonic at times. She was interacting when she 1st arrived but as her has not been here to communicate with her she has withdrawn and not communicative at this point. She has not walked in many years. She has been bed-bound and her has done all her activities of daily living for her. She tends to speak out of her mind quite a bit according to the daughter. She tends to disconnect with reality at times as well. Patient's daughter will come down to see the patient over the next 24 hours. However, there are dealing and working on arrangements for their father. Patient's long-term prognosis is poor. She really will not have anyone to care for her and should end up at a alf. Patient's daughter is battling terminal cancer as well and is not really able to help her with her day-to-day activities. She does not have the cognitive ability to make appropriate decisions for herself because of her psychiatric issues. Patient has always fought to the go into a psychiatric facility and her has gone along with her and not placed her in a psychiatric facility. Patient's mental health is poor. Long-term prognosis is poor. Patient would best be suited for palliative care at this conjunction of her life.
[2024-08-02 05:53] LABS: UR MICROALBUMIN 16.4 mg/dL (< 1.9)
[2024-08-02] MEDS ORDERED: hydrOXYzine HCL 25 MG TAB PO PRN (05:58)
[2024-08-02 06:15] LABS: UR CREAT < 18.0 mg/dL (20-320)
[2024-08-02] MEDS: DIPHENHYDRAMINE 50 MG/ML VIAL IV PRN (12:35)
[2024-08-02] MEDS ORDERED: ACETAMINOPHEN 650MG/RECT SUPP PR PRN (12:43)
--- NOTE | 2024-08-02 12:48 | P.PN ---
Date of Service: 08/02/24 Subjective rash to upper chest pt not swallowing liquids/meds Review of Systems Unable to be obtained due to confusion Physical Examination - Vital Signs Reviewed - Physical Exam General: Obese, not acutely ill looking, afebrile, confused, non verbal HEENT: supple Neck: Supple, without JVD Respiratory: diminhsed, rhonchi, Cardiovascular: irregular rate and rhythm, Gastrointestinal: Normal bowel sounds, obese Extremities : right hallux remains in kerlix surgical dressing, Moderate peripheral edema Integumentary: pallor, upper chest with splotchy, blanching, erythematous rash Neurology; eyes partially open to verbal, confused, no focal deficit Assessment And Plan 73 yrs old Female with past medical history of anxiety, atrial fibrillation, hypertension, rheumatoid arthritis, pulmonary hypertension, morbid obesity, brought to ER with generalized weakness and fatigue for 3 days. Metabolic encephalopathy likely secondary to complicated cystitis CT brain neg, Fall precaution, Acute hypoxic respiratory failure secondary to severe pulmonary hypertension Acute on chronic decompensated heart failure Fluid volume overload secondary to decompensated heart failure Elevated BNP Pulmonary hypertension O2 2 L keep sats greater than 93% Cardiology following Echo NORMAL LEFT VENTRICULAR SYSTOLIC FUNCTION, EJECTION FRACTION 55-60%, NORMAL WALL MOTION 2. SEVERE PULMONARY HYPERTENSION, RIGHT VENTRICULAR SYSTOLIC PRESSURE GREATER THAN 60 mmHg Chest x-ray no abnormalities noted IV albumin, Lasix given per cardiology's recommendation Recurrent acute cystitis with Enterococcus faecalis Leukocytosis Urine culture sensitivity and identification reviewed, finished 7-day of culture specific antibiotics On meropenem Dry gangrenous cellulitis of right hallux complicated by septic shock status post surgical debridement on July 24 improved Slowly improving, Foot MRI no radiologic evidence of osteomyelitis, , cefepime, Zyvox leukocytosis resolved, no more fever, chest x-ray clear for pneumonia, procalcitonin down to 0.5 from 2.08 Wound culture positive for Enterococcus faecalis +2 fungi, (fluconazole start will need 7 days) atrial fibrillation on rivaroxaban heart rate at target, continue oral 12.5 mg metoprolol with holding parameter nonoliguric LILLIAM associated #2 and nephrotoxic antibiotics (vancomycin) Hypokalemia Deferred IV fluids to nephrology - gentle hydration neph following Trend electrolytes replace as needed DVT prophylaxis; rivaroxaban Disposition; patient has a poor prognosis given multiple medical problems listed above Pt's Spouse (was her primary manager progressive care) yesterday 08/01/24 Diet cardiac Full code - Daughter coming 08/02/24 to make more POAH decisions <Lauren Pate - Last Filed: 08/02/24 12:40> Patient has a diffuse erythematous papular rash, worsening LILLIAM, metabolic encephalopathy suspected drug rash with possible acute interstitial nephritis, urinary eosinophil is not available at this hospital, nearly resolution of cellulitis of the right hallux, I will discontinue cefepime and fluconazole. Fungus in wound culture could be colonization or contamination not true infection, I will continue IV fluid at maintenance rate due to poor oral intake, the case discussed with centrifugal station operator today <CATHERINE Dudley - Last Filed: 08/02/24 14:52>
--- NOTE | 2024-08-02 16:28 | PN ---
Subjective: The patient is somnolent, not in any acute distress. Objective: Vital signs: Reviewed. Lungs: Basal crackles. Heart S1, S2. Regular. Abdomen: Soft, nontender. Bowel sounds present. Extremities: Trace edema. Laboratory Data: Shows WBC 14, hemoglobin 10, platelets 278. BUN 52, creatinine 4, albumin level is 2.7. The patient is currently being treated with cefepime. Urine and wound cultures are growing En terococcus faecalis. Assessment And Plan: Urosepsis, foot wound with Enterococcus faecalis. We will recommend to switch patient to Unasyn, adjust accordingly to renal function, discontinue cefepime. Continue supportive c are and wound care. Leukocytosis, anemia of chronic disease. Prognosis guarded. We will follow the patient as needed. NF/MODL Voice ID: [id number] Report ID: [id number]
--- NOTE | 2024-08-02 20:59 | P.PN ---
Date of Service: 08/02/24 Vital Signs Temp Pulse Resp BP Pulse Ox 98.9 F 97 H 14 158/77 H 98 08/02/24 16:00 08/02/24 16:00 08/02/24 16:00 08/02/24 16:00 08/02/24 16:00 Medications Acetaminophen (Acetaminophen 650mg/Rect Supp) 650 mg [place] Q6H PRN PRN Reason: TEMP > 100' F Clopidogrel Bisulfate (Clopidogrel 75 Mg Tablet) 75 mg PO DAILY [facility] Last Admin: 08/02/24 09:00 Dose: Not Given Diphenhydramine HCl (Diphenhydramine 50 Mg/Ml Vial) 12.5 mg IV Q6H PRN PRN Reason: ITCHING Last Admin: 08/02/24 12:35 Dose: 12.5 mg Hydralazine HCl (Hydralazine Hcl 20 Mg/Ml Vial) 10 mg IV Q6HP PRN PRN Reason: FOR SBP>160 OR DBP>100 [facility] Last Admin: 08/01/24 08:27 Dose: 10 mg Sodium Bicarbonate 50 meq/ (Sodium Chloride) 1,050 mls @ 50 mls/hr IV .Q21H [facility] Last Admin: 08/02/24 05:01 Dose: 1,050 mls Ampicillin Sodium 1 gm/ Sodium (Chloride) 100 mls @ 200 mls/hr IVPB Q12HR [facility] Lidocaine (Lidocaine 4% Patch) 1 patch TOP DAILY [facility] Last Admin: 08/02/24 10:47 Dose: 1 patch Metoprolol Tartrate (Metoprolol Tartrate 5 Mg/5 Ml Inj) 5 mg IV Q6H [facility] Last Admin: 08/02/24 17:15 Dose: 5 mg Ondansetron HCl (Ondansetron 4 Mg/2 Ml Vial) 4 mg IV Q6HP PRN PRN Reason: NAUSEA / VOMITING Rivaroxaban (Rivaroxaban 10 Mg Tablet) 10 mg PO DAILY [facility] Last Admin: 08/02/24 09:00 Dose: Not Given Microbiology Results 07/15/24 19:11 Clean Catch Urine [place] Count - Final BETWEEN 10,000 & 100,000 CFU/ML 07/15/24 19:11 Clean Catch Urine - Final Enterococcus Faecalis Assessment/ Plan: Nephrology No dyspnea No chest pain Limited IH/ ROS due to lack of communication No acute events overnight Vitals, medications, blood work and imaging reviewed in the chart General: In no apparent distress. Obese. HEENT: Atraumatic Neck: Supple Respiratory: Normal air movement Cardiovascular: Normal S1 S2, Edema Gastrointestinal: Soft and benign, Non-distended, No guarding Musculoskeletal: No clubbing, No contractures Integumentary: No rashes, No cyanosis [place] Blood work reviewed in the chart. Imagings Data: EXAM: Chest Single View HISTORY: sob COMPARISON: 07/22/2024 FINDINGS: LUNGS/PLEURA: The lungs are clear. No pleural effusions or pneumothorax. No pulmonary edema. MEDIASTINUM: The mediastinal silhouette is within normal limits. CARDIAC: Moderate cardiomegaly is similar. UPPER ABDOMEN: No significant abnormality. BONES: No acute abnormality. LINES/TUBES/OTHER: Right subclavian approach PICC with tip overlying the distal SVC in satisfactory position. IMPRESSION: No evidence of acute cardiopulmonary disease. EXAM: Foot Right Wo Cont HISTORY: right foot infected wound; eval for osteo COMPARISON: 07/21/2024 foot radiograph TECHNIQUE: Multiplanar multisequence MR images were obtained of the imaged foot without contrast. FINDINGS: No marrow signal abnormality is seen in the visualized bones to suggest osteomyelitis. No focal fluid collection is seen in the soft tissues. Generalized subcutaneous edema is present. There is an ulceration along the medial posterior aspect of the foot at the level of the first metatarsal head. The muscles and tendons appear grossly intact. IMPRESSION: No significant marrow signal abnormality to suggest osteomyelitis. Please note that evaluation is limited without IV contrast. No fracture identified. LEFT VENTRICULAR WALL MOTION: NORMAL DOPPLER/COLOR FLOW: SEE BELOW COMMENTS: 1. NORMAL LEFT VENTRICULAR EJECTION FRACTION 50-55% 2. NORMAL WALL MOTION 3. LEFT ATRIAL ENLARGEMENT 4. ATRIAL FIBRILLATION 5. BI-ATRIAL ENLARGEMENT 6. SEVERE PULMONARY HYPERTENSION WITH RIGHT VENTRICULAR SYSTOLIC PRESSURE GREATER THAN 60 mmHg Conclusions/Impression: Stage II LILLIAM may be due to intravascular hypovolemia in the setting of severe pulmonary hypertension complicated by elevated vancomycin levels resulting in ATN -No NSAIDs -Continue gentle IVF Hypokalemia -Replete prn Hypophosphatemia -Replete prn HTN with Tachycardia -Continue Metoprolol 5mg IV q6h Severe Pulmonary HTN Peripheral Edema/ Anasarca -Elevated BNP expected Hypoalbuminemia -Continue Ensure as tolerated Anemia in chronic illness -Monitor H&H Recurrent UTI -Continue abx -ID following Toxic Metabolic Encephalopathy -Continue supportive care Case discussed with Dr. Dudley Hospitalist note reviewed
[2024-08-02] MEDS: AMPICILLIN SODIUM 1 GM in NA CHLORIDE 0.9% 100 ML IVPB SCH (22:04)
[2024-08-03] MEDS ORDERED: AMPICILLIN SODIUM 500 MG in NA CHLORIDE 0.9% 50 ML IVPB SCH (01:00)
[2024-08-03 04:45] LABS: Albumin 2.5 g/dL (3.4-5.0); Albumin/Globulin Ratio 0.8 (1.1-1.8); Alkaline Phosphatase 67 U/L (45-117); Anion Gap 13.7 mEq/L (5.0-15.0); BUN Blood Urea Nitrogen 50 mg/dL (7-18); Bicarbonate 22 mEq/L (21-32); Bilirubin Total 0.6 mg/dL (0.2-1.0); Globulin 3.3 g/dL (2.3-3.5); Glomerular Filtration Rate 10 ml/min (=/>90); Glucose Level 71 mg/dL (74-106); Potassium 3.7 mEq/L (3.5-5.1); Protein, Total 5.8 g/dL (6.4-8.2); Sodium Level 139 mEq/L (136-145)
[2024-08-03 04:55] LABS: ALT/SGPT < 14 U/L (13-56); AST/SGOT < 10 U/L (15-37)
--- NOTE | 2024-08-03 17:59 | PN ---
Subjective: The patient is lying in bed. No new acute event. Chart reviewed. Opens eyes spontaneo usly, nonverbal. Objective: Vital Signs: Reviewed. Temperature 99. Lungs: Basal crackles. Heart: S1, S2. Regular. Abdomen: Soft, nontender. Bowel sounds present. Extremities: Trace edema. Wound noted. Laboratory Data: Shows WBC 14,000, hemoglobin 10.6, platelets are 278, eosinophil is 0.2. Chemistry shows BUN of 50, creatinine is 4.3. Wound culture is growing Enterococcus faecalis. Urine culture is growing Enterococcus faecalis. Assessment And Plan: Urosepsis, renal failure, foot gangrene. Continue current wound care. Monitor signs of infection, WBC, and fever trends. Allergic rash. The patient has been taken off antibioti cs to monitor for current rash. The patient is getting Benadryl. We will continue to monitor patien t for signs of infection. NF/MODL Voice ID: [id number] Report ID: [id number]
[2024-08-03] MEDS: METHYLPREDNISOLONE 40 MG INJ IV ONE (18:02)
--- NOTE | 2024-08-03 20:18 | P.PN ---
Date of Service: 08/03/24 Subjective rash to upper chest, abx stopped last pm - urine cultures prelim with no bacterial growth, concern for allergic rash, abx r/t encephalopathy pt not swallowing liquids/meds, attempted to get pt to drink a sip of water today and she turned her head, used water to wet her lips and she gently bit my finger and laughed. I tried to encourage her to drink fluid and she refused. Will try to contact Daughter, Zulma, today Review of Systems Unable to be obtained due to confusion Physical Examination - Vital Signs Reviewed - Physical Exam General: Obese, not acutely ill looking, afebrile, confused, non verbal HEENT: supple Neck: Supple, without JVD, fading rash Respiratory: diminhsed, rhonchi, Cardiovascular: irregular rate and rhythm, Gastrointestinal: Normal bowel sounds, obese Extremities : right hallux remains in kerlix surgical dressing, Moderate peripheral edema Integumentary: pallor, upper chest with splotchy, blanching, erythematous rash - improving Neurology; eyes open spontaneously, nonverbal but more alert, no focal deficit Assessment And Plan 73 yrs old Female with past medical history of anxiety, atrial fibrillation, hypertension, rheumatoid arthritis, pulmonary hypertension, morbid obesity, brought to ER with generalized weakness and fatigue for 3 days. Metabolic encephalopathy likely secondary to complicated cystitis CT brain neg, Fall precaution, Acute hypoxic respiratory failure secondary to severe pulmonary hypertension Acute on chronic decompensated heart failure Fluid volume overload secondary to decompensated heart failure Elevated BNP Pulmonary hypertension O2 2 L keep sats greater than 93% Cardiology following Echo NORMAL LEFT VENTRICULAR SYSTOLIC FUNCTION, EJECTION FRACTION 55-60%, NORMAL WALL MOTION 2. SEVERE PULMONARY HYPERTENSION, RIGHT VENTRICULAR SYSTOLIC PRESSURE GREATER THAN 60 mmHg Chest x-ray no abnormalities noted IV albumin, Lasix given per cardiology's recommendation Recurrent acute cystitis with Enterococcus faecalis Leukocytosis Urine culture sensitivity and identification reviewed, finished 7-day of culture specific antibiotics On meropenem Dry gangrenous cellulitis of right hallux complicated by septic shock status post surgical debridement on July 24 improved Slowly improving, Foot MRI no radiologic evidence of osteomyelitis, , cefepime, Zyvox leukocytosis resolved, no more fever, chest x-ray clear for pneumonia, procalcitonin down to 0.5 from 2.08 Wound culture positive for Enterococcus faecalis +2 fungi, (fluconazole start will need 7 days) atrial fibrillation on rivaroxaban heart rate at target, continue oral 12.5 mg metoprolol with holding parameter nonoliguric LILLIAM associated #2 and nephrotoxic antibiotics (vancomycin) Hypokalemia Deferred IV fluids to nephrology - gentle hydration neph following Trend electrolytes replace as needed DVT prophylaxis; rivaroxaban Disposition; patient has a poor prognosis given multiple medical problems listed above Pt's Spouse (was her primary patient care assistant) yesterday 08/01/24 08/03/24 Stopped all antibiotics - repeat cultures negative (prelim) Creatinine still increasing - allergic interstitial nephritis?? Will discuss steroids with Dr. Lerma Pt is more alert today - Cefepime contributing to encephalopathy?? Spoke with Zulma. Discussed need to make decisions on SNF vs LTAC, palliative care vs aggressive treatment. The Family has not told her that her yet. He was her total care provider. Zulma states that her Mother never wanted to go to a SNF. Discussed poor longterm prognosis. She states she will discuss decisions and plans with Family and let us know. Diet cardiac Full code - Daughter coming 08/02/24 to make more POAH decisions
--- NOTE | 2024-08-03 21:31 | P.PN ---
Date of Service: 08/03/24 Vital Signs Temp Pulse Resp BP Pulse Ox 97.9 F 58 18 158/89 H 94 08/03/24 16:00 08/03/24 16:00 08/03/24 16:00 08/03/24 16:00 08/03/24 16:00 Medications Acetaminophen (Acetaminophen 650mg/Rect Supp) 650 mg [place] Q6H PRN PRN Reason: TEMP > 100' F Clopidogrel Bisulfate (Clopidogrel 75 Mg Tablet) 75 mg PO DAILY [facility] Last Admin: 08/03/24 08:56 Dose: Not Given Diphenhydramine HCl (Diphenhydramine 50 Mg/Ml Vial) 12.5 mg IV Q6H PRN PRN Reason: ITCHING Last Admin: 08/03/24 12:14 Dose: 12.5 mg Hydralazine HCl (Hydralazine Hcl 20 Mg/Ml Vial) 10 mg IV Q6HP PRN PRN Reason: FOR SBP>160 OR DBP>100 [facility] Last Admin: 08/01/24 08:27 Dose: 10 mg Sodium Bicarbonate 50 meq/ (Sodium Chloride) 1,050 mls @ 50 mls/hr IV .Q21H [facility] Last Admin: 08/03/24 04:04 Dose: 1,050 mls Lidocaine (Lidocaine 4% Patch) 1 patch TOP DAILY [facility] Last Admin: 08/03/24 08:55 Dose: 1 patch Methylprednisolone Sodium Succinate (Methylprednisolone 40 Mg Inj) 40 mg IV Q8H [facility] Metoprolol Tartrate (Metoprolol Tartrate 5 Mg/5 Ml Inj) 5 mg IV Q6H [facility] Last Admin: 08/03/24 17:31 Dose: 5 mg Ondansetron HCl (Ondansetron 4 Mg/2 Ml Vial) 4 mg IV Q6HP PRN PRN Reason: NAUSEA / VOMITING Rivaroxaban (Rivaroxaban 10 Mg Tablet) 10 mg PO DAILY [facility] Last Admin: 08/03/24 08:57 Dose: Not Given Microbiology Results 07/15/24 19:11 Clean Catch Urine [place] Count - Final BETWEEN 10,000 & 100,000 CFU/ML 07/15/24 19:11 Clean Catch Urine - Final Enterococcus Faecalis Assessment/ Plan: Nephrology No dyspnea No chest pain Limited IH/ ROS due to lack of communication No acute events overnight Vitals, medications, blood work and imaging reviewed in the chart General: In no apparent distress. Obese. HEENT: Atraumatic Neck: Supple Respiratory: Normal air movement Cardiovascular: Normal S1 S2, Edema Gastrointestinal: Soft and benign, Non-distended, No guarding Musculoskeletal: No clubbing, No contractures Integumentary: No rashes, No cyanosis [place] light Blood work reviewed in the chart. Imagings Data: EXAM: Chest Single View HISTORY: sob COMPARISON: 07/22/2024 FINDINGS: LUNGS/PLEURA: The lungs are clear. No pleural effusions or pneumothorax. No pulmonary edema. MEDIASTINUM: The mediastinal silhouette is within normal limits. CARDIAC: Moderate cardiomegaly is similar. UPPER ABDOMEN: No significant abnormality. BONES: No acute abnormality. LINES/TUBES/OTHER: Right subclavian approach PICC with tip overlying the distal SVC in satisfactory position. IMPRESSION: No evidence of acute cardiopulmonary disease. EXAM: Foot Right Wo Cont HISTORY: right foot infected wound; eval for osteo COMPARISON: 07/21/2024 foot radiograph TECHNIQUE: Multiplanar multisequence MR images were obtained of the imaged foot without contrast. FINDINGS: No marrow signal abnormality is seen in the visualized bones to suggest osteomyelitis. No focal fluid collection is seen in the soft tissues. Generalized subcutaneous edema is present. There is an ulceration along the medial posterior aspect of the foot at the level of the first metatarsal head. The muscles and tendons appear grossly intact. IMPRESSION: No significant marrow signal abnormality to suggest osteomyelitis. Please note that evaluation is limited without IV contrast. No fracture identified. LEFT VENTRICULAR WALL MOTION: NORMAL DOPPLER/COLOR FLOW: SEE BELOW COMMENTS: 1. NORMAL LEFT VENTRICULAR EJECTION FRACTION 50-55% 2. NORMAL WALL MOTION 3. LEFT ATRIAL ENLARGEMENT 4. ATRIAL FIBRILLATION 5. BI-ATRIAL ENLARGEMENT 6. SEVERE PULMONARY HYPERTENSION WITH RIGHT VENTRICULAR SYSTOLIC PRESSURE GREATER THAN 60 mmHg Conclusions/Impression: Stage II LILLIAM may be due to intravascular hypovolemia in the setting of severe pulmonary hypertension complicated by elevated vancomycin levels resulting in ATN -No NSAIDs -Continue gentle IVF -Solumedrol started for possible interstitial nephritis Hypokalemia -Replete prn Hypophosphatemia -Replete prn HTN with Tachycardia -Continue Metoprolol 5mg IV q6h Severe Pulmonary HTN Peripheral Edema/ Anasarca -Elevated BNP expected Hypoalbuminemia -Continue Ensure as tolerated Anemia in chronic illness -Monitor H&H Recurrent UTI -Continue abx -ID following Dry gangrenous cellulitis of right hallux status post surgical debridement 07-24-24 -Continue wound care Case discussed with the hospitalist team Hospitalist note reviewed
[2024-08-04] MEDS: METHYLPREDNISOLONE 40 MG INJ IV SCH (01:31)
--- NOTE | 2024-08-04 06:28 | P.PN ---
Date of Service: 08/04/24 Subjective rash to upper chest improved, pt is alert this am, she states, "oh, your hands are cold!" and smiled at me, will obtain swallow study with speech therapy today Review of Systems Unable to be obtained due to confusion Physical Examination - Vital Signs Reviewed - Physical Exam General: Obese, not acutely ill looking, afebrile, confused, verbal this am HEENT: supple Neck: Supple, without JVD, fading rash Respiratory: diminished, rhonchi, Cardiovascular: irregular rate and rhythm, Gastrointestinal: Normal bowel sounds, obese Extremities : right hallux remains in kerlix surgical dressing, Moderate kuldeep pheral edema, improved Integumentary: pallor, upper chest with splotchy, blanching, erythematous rash - fading Neurology; eyes open spontaneously, sparsely verbal but even more alert today (08/04/24), no focal deficit Assessment And Plan 73 yrs old Female with past medical history of anxiety, atrial fibrillation, hypertension, rheumatoid arthritis, pulmonary hypertension, morbid obesity, brought to ER with generalized weakness and fatigue for 3 days. Metabolic encephalopathy likely secondary to complicated cystitis CT brain neg, Fall precaution, Acute hypoxic respiratory failure secondary to severe pulmonary hypertension Acute on chronic decompensated heart failure Fluid volume overload secondary to decompensated heart failure Elevated BNP Pulmonary hypertension O2 2 L keep sats greater than 93% Cardiology following Echo NORMAL LEFT VENTRICULAR SYSTOLIC FUNCTION, EJECTION FRACTION 55-60%, NORMAL WALL MOTION 2. SEVERE PULMONARY HYPERTENSION, RIGHT VENTRICULAR SYSTOLIC PRESSURE GREATER THAN 60 mmHg Chest x-ray no abnormalities noted IV albumin, Lasix given per cardiology's recommendation Recurrent acute cystitis with Enterococcus faecalis Leukocytosis Urine culture sensitivity and identification reviewed, finished 7-day of culture specific antibiotics On meropenem Dry gangrenous cellulitis of right hallux complicated by septic shock status post surgical debridement on July 24 improved Slowly improving, Foot MRI no radiologic evidence of osteomyelitis, , cefepime, Zyvox leukocytosis resolved, no more fever, chest x-ray clear for pneumonia, procalcitonin down to 0.5 from 2.08 Wound culture positive for Enterococcus faecalis +2 fungi, (fluconazole start will need 7 days) atrial fibrillation on rivaroxaban heart rate at target, continue oral 12.5 mg metoprolol with holding parameter nonoliguric LILLIAM associated #2 and nephrotoxic antibiotics (vancomycin) Hypokalemia Deferred IV fluids to nephrology - gentle hydration neph following Trend electrolytes replace as needed DVT prophylaxis; rivaroxaban Disposition; patient has a poor prognosis given multiple medical problems listed above Pt's Spouse (was her primary daycare assistant) yesterday 08/01/24 08/03/24 Stopped all antibiotics - repeat cultures negative (prelim) Creatinine still increasing - allergic interstitial nephritis?? Will discuss steroids with Dr. Lerma Pt is more alert today - Cefepime contributing to encephalopathy?? Spoke with Zulma. Discussed need to make decisions on SNF vs LTAC, palliative care vs aggressive treatment. The Family has not told her that her yet. He was her total care provider. Zulma states that her Mother never wanted to go to a SNF. 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 She states she will discuss decisions and plans with Family and let us know. 08/04/24 Discussed allergic reaction/possible trial of steroids with Dr. Lerma. Decided to trial steroids 80mg Solu-medrol x 1 at 1800 last evening (08/03/24) and then 40mg IV q8h begun. Noted improved mental status this am. Will obtain swallow study this am. AM labs remain pending... Diet cardiac Full code - Daughter coming 08/02/24 to make more POAH decisions <Lauren Pate - Last Filed: 08/04/24 06:18> Case discussed with the gage maker on board, he agreed to treat her with harper roid pulse for possible acute interstitial nephritis. Steroid ordered per nephrology recommendation, I will order low-dose insulin scale while on high- dose steroid. <CATHERINE Dudley - Last Filed: 08/04/24 08:40>
[2024-08-04 07:33] LABS: Absolute Lymphocytes (CBC) 0.5 K/uL (0.7-4.9); Absolute Neutrophil 7.2 K/uL (1.8-8.0); Basophils % 0.4 % (0-1.3); Hematocrit 34.5 % (36.0-45.0); Hemoglobin 11.2 g/dL (12.0-15.0); MCH 28.4 pg (27.0-35.0); MCHC 32.6 g/dL (32.0-36.0); MCV 87.1 fL (80-100); MPV 8.2 fL (7.6-11.3); Monocytes % 0.6 % (3.3-12.3); Platelets 243 thou/uL (152-406); RBC Red Blood Cell Count 3.96 M/uL (3.86-4.86); Red Cell Distribution Width 16.2 % (12.1-15.2)
[2024-08-04 07:57] LABS: AST/SGOT 12 U/L (15-37); Albumin 2.7 g/dL (3.4-5.0); Albumin/Globulin Ratio 0.7 (1.1-1.8); Alkaline Phosphatase 78 U/L (45-117); BUN Blood Urea Nitrogen 58 mg/dL (7-18); Bicarbonate 19 mEq/L (21-32); Bilirubin Total 0.5 mg/dL (0.2-1.0); Globulin 3.8 g/dL (2.3-3.5); Glomerular Filtration Rate 9 ml/min (=/>90); Glucose Level 112 mg/dL (74-106); Magnesium 1.9 mg/dL (1.6-2.4); Protein, Total 6.5 g/dL (6.4-8.2); Sodium Level 137 mEq/L (136-145)
[2024-08-04 08:01] LABS: ALT/SGPT < 14 U/L (13-56)
[2024-08-04 09:34] LABS: Blood Morphology Comment NOTED (NOT SEEN); Burr Cells 1+; Platelet Estimate ADEQ; White Blood Cell Scan OK (OK)
[2024-08-04] MEDS ORDERED: D10W 125 ML IV PRN (14:01)
[2024-08-04] MEDS ORDERED: GLUCAGON 1 MG/VIAL IM PRN (14:01)
[2024-08-04] MEDS: INSULIN REGULAR (HUMAN) 100 UNIT/ML SQ SCH (16:30)
--- NOTE | 2024-08-04 17:40 | PN ---
Subjective: Patient is more alert and awake and able to communicate today. Objective: Vital signs: Reviewed. Lungs: Basal crackles. Heart: S1, S2. Regular. Abdomen: Soft, nontender. Bowel sounds present. Extremity: Trace edema. Wounds noted. Laboratory Data: Shows WBC of 7.8, hemoglobin 11, platelets are 243. The patient is off antibiotic and steroids, is getting methylprednisolone 40 mg IV q.8 hours, rash is subsiding. Assessment And Plan: Status post cystitis. Treatment for enterococcus faecalis. Right foot big toe dry gangrenous changes. Continue local wound care. Allergic reaction. The patient is off antibiot ic. We will continue to monitor. Leukocytosis is subsiding. We will follow. The patient is more a lert and awake. We will follow the patient as needed. NF/MODL Voice ID: [id number] Report ID: [id number]
--- NOTE | 2024-08-04 20:52 | P.PN ---
Date of Service: 08/04/24 Vital Signs Temp Pulse Resp BP Pulse Ox 97.7 F 75 18 119/88 100 08/04/24 16:00 08/04/24 17:17 08/04/24 16:00 08/04/24 17:17 08/04/24 16:00 Medications Acetaminophen (Acetaminophen 650mg/Rect Supp) 650 mg [place] Q6H PRN PRN Reason: TEMP > 100' F Clopidogrel Bisulfate (Clopidogrel 75 Mg Tablet) 75 mg PO DAILY [facility] Last Admin: 08/04/24 09:00 Dose: Not Given Diphenhydramine HCl (Diphenhydramine 50 Mg/Ml Vial) 12.5 mg IV Q6H PRN PRN Reason: ITCHING Last Admin: 08/03/24 12:14 Dose: 12.5 mg Glucagon (Glucagon 1 Mg/Vial) 1 mg IM 1X PRN PRN Reason: HYPOGLYCEMIA Hydralazine HCl (Hydralazine Hcl 20 Mg/Ml Vial) 10 mg IV Q6HP PRN PRN Reason: FOR SBP>160 OR DBP>100 [facility] Last Admin: 08/04/24 00:27 Dose: 10 mg Sodium Bicarbonate 50 meq/ (Sodium Chloride) 1,050 mls @ 50 mls/hr IV .Q21H [facility] Last Admin: 08/03/24 23:17 Dose: 1,050 mls Dextrose (Dextrose 10% Water Iv Soln.) 125 mls @ 0 mls/hr IV PRN PRN; Protocol PRN Reason: HYPOGLYCEMIA Insulin Human Regular (Insulin Regular (Human) 100 Unit/Ml) 0 unit SQ ACHS [facility]; Protocol Last Admin: 08/04/24 16:30 Dose: Not Given Lidocaine (Lidocaine 4% Patch) 1 patch TOP DAILY [facility] Last Admin: 08/04/24 11:37 Dose: 1 patch Methylprednisolone Sodium Succinate (Methylprednisolone 40 Mg Inj) 40 mg IV Q8H [facility] Last Admin: 08/04/24 17:17 Dose: 40 mg Metoprolol Tartrate (Metoprolol Tartrate 5 Mg/5 Ml Inj) 5 mg IV Q6H [facility] Last Admin: 08/04/24 17:17 Dose: 5 mg Ondansetron HCl (Ondansetron 4 Mg/2 Ml Vial) 4 mg IV Q6HP PRN PRN Reason: NAUSEA / VOMITING Rivaroxaban (Rivaroxaban 10 Mg Tablet) 10 mg PO DAILY [facility] Last Admin: 08/04/24 09:00 Dose: Not Given Microbiology Results 07/15/24 19:11 Clean Catch Urine [place] Count - Final BETWEEN 10,000 & 100,000 CFU/ML 07/15/24 19:11 Clean Catch Urine - Final Enterococcus Faecalis Assessment/ Plan: Nephrology No dyspnea No chest pain Limited IH/ ROS due to lack of communication No acute events overnight Vitals, medications, blood work and imaging reviewed in the chart General: In no apparent distress. Obese. HEENT: Atraumatic Neck: Supple Respiratory: Normal air movement Cardiovascular: Normal S1 S2, Edema Gastrointestinal: Soft and benign, Non-distended, No guarding Musculoskeletal: No clubbing, No contractures Integumentary: Diffuse rash, No cyanosis [place] light Blood work reviewed in the chart. Imagings Data: EXAM: Chest Single View HISTORY: sob COMPARISON: 07/22/2024 FINDINGS: LUNGS/PLEURA: The lungs are clear. No pleural effusions or pneumothorax. No pulmonary edema. MEDIASTINUM: The mediastinal silhouette is within normal limits. CARDIAC: Moderate cardiomegaly is similar. UPPER ABDOMEN: No significant abnormality. BONES: No acute abnormality. LINES/TUBES/OTHER: Right subclavian approach PICC with tip overlying the distal SVC in satisfactory position. IMPRESSION: No evidence of acute cardiopulmonary disease. EXAM: Foot Right Wo Cont HISTORY: right foot infected wound; eval for osteo COMPARISON: 07/21/2024 foot radiograph TECHNIQUE: Multiplanar multisequence MR images were obtained of the imaged foot without contrast. FINDINGS: No marrow signal abnormality is seen in the visualized bones to suggest osteomyelitis. No focal fluid collection is seen in the soft tissues. Generali zed subcutaneous edema is present. There is an ulceration along the medial posterior aspect of the foot at the level of the first metatarsal head. The muscles and tendons appear grossly intact. IMPRESSION: No significant marrow signal abnormality to suggest osteomyelitis. Please note that evaluation is limited without IV contrast. No fracture identified. LEFT VENTRICULAR WALL MOTION: NORMAL DOPPLER/COLOR FLOW: SEE BELOW COMMENTS: 1. NORMAL LEFT VENTRICULAR EJECTION FRACTION 50-55% 2. NORMAL WALL MOTION 3. LEFT ATRIAL ENLARGEMENT 4. ATRIAL FIBRILLATION 5. BI-ATRIAL ENLARGEMENT 6. SEVERE PULMONARY HYPERTENSION WITH RIGHT VENTRICULAR SYSTOLIC PRESSURE GREATER THAN 60 mmHg Conclusions/Impression: Stage II LILLIAM may be due to intravascular hypovolemia in the setting of severe pulmonary hypertension complicated by elevated vancomycin levels resulting in AT N -No NSAIDs -Continue gentle IVF -Continue Solumedrol for possible interstitial nephritis -Urine studies ordered but not sent. Hypokalemia -Replete prn Hypophosphatemia -Replete prn HTN with Tachycardia -Continue Metoprolol 5mg IV q6h Severe Pulmonary HTN Peripheral Edema/ Anasarca -Elevated BNP expected Hypoalbuminemia -Continue Ensure as tolerated Anemia in chronic illness -Monitor H&H Recurrent UTI -Continue abx -ID following Dry gangrenous cellulitis of right hallux status post surgical debridement 07-24-24 -Continue wound care Case discussed with the hospitalist team Hospitalist note reviewed
[2024-08-05 04:37] LABS: Absolute Lymphocytes (CBC) 0.5 K/uL (0.7-4.9); Absolute Monocytes 0.2 K/uL (0.1-1.3); Absolute Neutrophil 4.6 K/uL (1.8-8.0); Basophils % 0.2 % (0-1.3); Hematocrit 28.2 % (36.0-45.0); Hemoglobin 9.4 g/dL (12.0-15.0); Lymphocytes % 9.3 % (15.3-44.8); MCH 28.9 pg (27.0-35.0); MCHC 33.5 g/dL (32.0-36.0); MCV 86.5 fL (80-100); Monocytes % 3.8 % (3.3-12.3); Neutrophils % 86.7 % (41.7-73.7); Platelets 229 thou/uL (152-406); RBC Red Blood Cell Count 3.26 M/uL (3.86-4.86)
[2024-08-05 06:12] LABS: Specific Gravity 1.015 (1.005-1.030); Sqamous Epithelial <5 /HPF (None Seen); Urine Bacteria <20 /HPF (<20); Urine Bilirubin NEGATIVE (Negative); Urine Blood 3+ (OVER) (Negative); Urine Clarity Extremely Turbid (Clear); Urine Color Yellow (Yellow); Urine Crystals Unidentified Few /HPF (None Seen); Urine Culture Reflex Order NOT NEEDED; Urine Glucose NEGATIVE (Negative); Urine Ketones 2+ (Negative); Urine Micro Reflex YN NO BILL MICROSCOPIC; Urine Nitrite NEGATIVE (Negative); Urine Protein 2+ (Negative); Urine Urobilinogen Normal (Normal); Urine pH 5.5 (5.0-7.0)
[2024-08-05 09:55] LABS: Hepatitis B Core Ab, Total Nonreactive (Nonreactive); Hepatitis B surface AG Interp. Nonreactive (Nonreactive); Hepatitis C Virus Ab Nonreactive (Nonreactive)
[2024-08-05 09:55] LABS: AST/SGOT 13 U/L (15-37); Albumin 2.8 g/dL (3.4-5.0); Albumin/Globulin Ratio 0.8 (1.1-1.8); Alkaline Phosphatase 74 U/L (45-117); BUN Blood Urea Nitrogen 65 mg/dL (7-18); Bicarbonate 18 mEq/L (21-32); Bilirubin Total 0.5 mg/dL (0.2-1.0); Globulin 3.7 g/dL (2.3-3.5); Glomerular Filtration Rate 9 ml/min (=/>90); Glucose Level 117 mg/dL (74-106); NT PRO-BNP 23970 pg/mL (<450); Protein, Total 6.5 g/dL (6.4-8.2); Sodium Level 139 mEq/L (136-145); Uric Acid 10.5 mg/dL (2.6-6.0)
[2024-08-05 09:56] LABS: Hepatitis B Surface Ab - Quant < 3.10 mIU/mL (<8.0)
[2024-08-05 09:56] LABS: ALT/SGPT < 14 U/L (13-56)
[2024-08-05 09:57] LABS: HBsAG Nonreactive Report Report
--- NOTE | 2024-08-05 10:55 | P.PN ---
Date of Service: 08/05/24 Subjective rash to upper chest continues to improve, pt is alert and conversant and at her baseline mental status from my experience meeting her on multiple past admissions, will obtain swallow study with speech therapy today as it was not done as asked yesterday. I did give her two large swallows of water that she seemed to handle well without cough, choking, or other mishap Review of Systems no c/o Physical Examination - Vital Signs Reviewed - Physical Exam General: Obese, afebrile, alert and oriented, verbal this am HEENT: supple Neck: Supple, without JVD, fading rash Respiratory: diminished, mild rhonchi, Cardiovascular: irregular rate and rhythm, Gastrointestinal: Normal bowel sounds, obese Extremities : right hallux remains in kerlix surgical dressing, Moderate peripheral edema, improved Integumentary: pallor, upper chest with splotchy, blanching, minimal erythematous rash Neurology; eyes open spontaneously, verbal Assessment And Plan 73 yrs old Female with past medical history of anxiety, atrial fibrillation, hypertension, rheumatoid arthritis, pulmonary hypertension, morbid obesity, brought to ER with generalized weakness and fatigue for 3 days. Dry gangrenous cellulitis of right hallux complicated by septic shock status post surgical debridement on July 24 improved Slowly improving, Foot MRI no radiologic evidence of osteomyelitis, atrial fibrillation on rivaroxaban heart rate at target, continue oral 12.5 mg metoprolol with holding parameter nonoliguric LILLIAM associated #2 and nephrotoxic antibiotics (vancomycin) Hypokalemia Deferred IV fluids to nephrology - gentle hydration neph following Trend electrolytes replace as needed DVT prophylaxis; rivaroxaban Disposition; patient has a poor prognosis given multiple medical problems listed above Pt's Spouse (was her primary care professional) yesterday 08/01/24 08/03/24 Stopped all antibiotics - repeat cultures negative (prelim) Creatinine still increasing - allergic interstitial nephritis?? Will discuss steroids with Dr. Lerma Pt is more alert today - Cefepime contributing to encephalopathy?? Spoke with Zulma. Discussed need to make decisions on SNF vs LTAC, palliative care vs aggressive treatment. The Family has not told her that her yet. He was her total care provider. Zulma states that her Mother never wanted to go to a SNF. 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 She states she will discuss decisions and plans with Family and let us know. 08/04/24 Discussed allergic reaction/possible trial of steroids with Dr. Lerma. Decided to trial steroids 80mg Solu-medrol x 1 at 1800 last evening (08/03/24) and then 40mg IV q8h begun. Noted improved mental status this am. Will obtain swallow study this am. AM labs remain pending... 08/05/24 A&Ox3, pt and I discussed how ill she has been. I discussed with her that I had been speaking with her Daughter, Zulma, regarding decisions regarding Mrs. Morin's healthcare because she was not able to communicate her wishes with us. She immediately told me that she wanted to sign the papers. I informed CM. Mrs. Morin swallowed two large mouthfuls of water and I again have ordered speech therapy evaluation. I am vastly encouraged about the resolution of her metabolic encephalopathy and apparent reversal of her allergic rash. She has seeming recovery of all infectious/sepsis processes at this time; however, her creatinine and renal function continue to worsen. I note that a hepatitis panel has been ordered in preparation for dialysis consideration. It is my hope that now that her mental status has returned to baseline, we can now get a clear picture of the patient's wishes as she has in the past declined SNF and is unfortunately now without her /primary care provider. I await her Daughter to discuss his passing with her unless given permission to do so. Diet cardiac Full code
[2024-08-05] MEDS: SODIUM BICARB 50 MEQ/50ML VIAL IV SCH (13:24)
[2024-08-05] MEDS: ENSURE HIGH PROTEIN 237 ML CAN PO SCH (14:00)
--- NOTE | 2024-08-05 19:50 | P.PN ---
Date of Service: 08/05/24 Vital Signs Temp Pulse Resp BP Pulse Ox 98.0 F 52 14 173/80 H 98 08/05/24 16:00 08/05/24 17:27 08/05/24 16:00 08/05/24 16:00 08/05/24 16:00 Medications Acetaminophen (Acetaminophen 650mg/Rect Supp) 650 mg OR Q6H PRN PRN Reason: TEMP > 100' F Diphenhydramine HCl (Diphenhydramine 50 Mg/Ml Vial) 12.5 mg IV Q6H PRN PRN Reason: ITCHING Last Admin: 08/05/24 13:33 Dose: 12.5 mg Glucagon (Glucagon 1 Mg/Vial) 1 mg IM 1X PRN PRN Reason: HYPOGLYCEMIA Hydralazine HCl (Hydralazine Hcl 20 Mg/Ml Vial) 10 mg IV Q6HP PRN PRN Reason: FOR SBP>160 OR DBP>100 [facility] Last Admin: 08/05/24 09:53 Dose: 10 mg Sodium Bicarbonate 50 meq/ (Sodium Chloride) 1,050 mls @ 50 mls/hr IV .Q21H [facility] Last Admin: 08/05/24 17:09 Dose: 1,050 mls Dextrose (Dextrose 10% Water Iv Soln.) 125 mls @ 0 mls/hr IV PRN PRN; Protocol PRN Reason: HYPOGLYCEMIA Insulin Human Regular (Insulin Regular (Human) 100 Unit/Ml) 0 unit SQ ACHS [facility]; Protocol Last Admin: 08/05/24 16:28 Dose: Not Given Lidocaine (Lidocaine 4% Patch) 1 patch TOP DAILY [facility] Last Admin: 08/05/24 09:48 Dose: 1 patch Methylprednisolone Sodium Succinate (Methylprednisolone 40 Mg Inj) 40 mg IV Q8H [facility] Last Admin: 08/05/24 18:44 Dose: 40 mg Metoprolol Tartrate (Metoprolol Tartrate 5 Mg/5 Ml Inj) 5 mg IV Q6H [facility] Last Admin: 08/05/24 17:27 Dose: Not Given Nutritional Formula (Ensure High Protein 237 Ml Can) 233 ml PO TID [facility] Last Admin: 08/05/24 14:00 Dose: Not Given Ondansetron HCl (Ondansetron 4 Mg/2 Ml Vial) 4 mg IV Q6HP PRN PRN Reason: NAUSEA / VOMITING Microbiology Results 07/15/24 19:11 Clean Catch Urine [place] Count - Final BETWEEN 10,000 & 100,000 CFU/ML 07/15/24 19:11 Clean Catch Urine - Final Enterococcus Faecalis Assessment/ Plan: Nephrology No dyspnea No chest pain Limited IH/ ROS due to lack of communication No acute events overnight Vitals, medications, blood work and imaging reviewed in the chart General: In no apparent distress. Obese. HEENT: Atraumatic Neck: Supple Respiratory: Normal air movement Cardiovascular: Normal S1 S2, Edema Gastrointestinal: Soft and benign, Non-distended, No guarding Musculoskeletal: No clubbing, No contractures Integumentary: Diffuse rash, No cyanosis [place] light Blood work reviewed in the chart. Imagings Data: EXAM: Chest Single View HISTORY: sob COMPARISON: 07/22/2024 FINDINGS: LUNGS/PLEURA: The lungs are clear. No pleural effusions or pneumothorax. No pulmonary edema. MEDIASTINUM: The mediastinal silhouette is within normal limits. CARDIAC: Moderate cardiomegaly is similar. UPPER ABDOMEN: No significant abnormality. BONES: No acute abnormality. LINES/TUBES/OTHER: Right subclavian approach PICC with tip overlying the distal SVC in satisfactory position. IMPRESSION: No evidence of acute cardiopulmonary disease. EXAM: Foot Right Wo Cont HISTORY: right foot infected wound; eval for osteo COMPARISON: 07/21/2024 foot radiograph TECHNIQUE: Multiplanar multisequence MR images were obtained of the imaged foot without contrast. FINDINGS: No marrow signal abnormality is seen in the visualized bones to suggest osteomyelitis. No focal fluid collection is seen in the soft tissues. Generalized subcutaneous edema is present. There is an ulceration along the medial posterior aspect of the foot at the level of the first metatarsal head. The muscles and tendons appear grossly intact. IMPRESSION: No significant marrow signal abnormality to suggest osteomyelitis. Please note that evaluation is limited without IV contrast. No fracture identified. LEFT VENTRICULAR WALL MOTION: NORMAL DOPPLER/COLOR FLOW: SEE BELOW COMMENTS: 1. NORMAL LEFT VENTRICULAR EJECTION FRACTION 50-55% 2. NORMAL WALL MOTION 3. LEFT ATRIAL ENLARGEMENT 4. ATRIAL FIBRILLATION 5. BI-ATRIAL ENLARGEMENT 6. SEVERE PULMONARY HYPERTENSION WITH RIGHT VENTRICULAR SYSTOLIC PRESSURE GREATER THAN 60 mmHg Conclusions/Impression: Stage III LILLIAM may be due to intravascular hypovolemia in the setting of severe pulmonary hypertension complicated by elevated vancomycin levels resulting in ATN Proteinuria -No NSAIDs -Continue gentle IVF -Continue Solumedrol for possible interstitial nephritis -FeNa 0.91% -GN labs sent for persistent hematuria Hypokalemia -Replete prn Hypophosphatemia -Replete prn HTN with Tachycardia -Continue Metoprolol 5mg IV q6h Severe Pulmonary HTN Peripheral Edema/ Anasarca -Elevated BNP expected Hypoalbuminemia -Continue Ensure as tolerated Anemia in chronic illness -Monitor H&H -PRBC prn Recurrent UTI, resolved -ID following Dry gangrenous cellulitis of right hallux status post surgical debridement 07-24-24 -Continue wound care Hospitalist note reviewed
[2024-08-06 05:13] LABS: Absolute Lymphocytes (CBC) 0.6 K/uL (0.7-4.9); Absolute Monocytes 0.5 K/uL (0.1-1.3); Absolute Neutrophil 5.7 K/uL (1.8-8.0); Hematocrit 27.7 % (36.0-45.0); Hemoglobin 9.5 g/dL (12.0-15.0); Lymphocytes % 8.3 % (15.3-44.8); MCH 29.3 pg (27.0-35.0); MCHC 34.1 g/dL (32.0-36.0); MCV 85.7 fL (80-100); MPV 7.8 fL (7.6-11.3); Monocytes % 7.7 % (3.3-12.3); Nucleated Red Blood Cells % 0.1 % (0-0); Platelets 218 thou/uL (152-406); RBC Red Blood Cell Count 3.24 M/uL (3.86-4.86); Red Cell Distribution Width 15.9 % (12.1-15.2)
[2024-08-06 05:37] LABS: Albumin 2.8 g/dL (3.4-5.0); Albumin/Globulin Ratio 0.9 (1.1-1.8); Alkaline Phosphatase 64 U/L (45-117); Anion Gap 15.5 mEq/L (5.0-15.0); BUN Blood Urea Nitrogen 66 mg/dL (7-18); Bicarbonate 25 mEq/L (21-32); Bilirubin Total 0.5 mg/dL (0.2-1.0); Globulin 3.2 g/dL (2.3-3.5); Glomerular Filtration Rate 9 ml/min (=/>90); Glucose Level 110 mg/dL (74-106); Potassium 3.5 mEq/L (3.5-5.1); Sodium Level 140 mEq/L (136-145)
[2024-08-06 05:51] LABS: ALT/SGPT < 14 U/L (13-56); AST/SGOT < 10 U/L (15-37)
[2024-08-06] MEDS: POTASSIUM 25 MEQ EFFERV TAB PO ONE (08:17)
--- NOTE | 2024-08-06 12:13 | P.PN ---
Nephrology (S) Pt less encephalopthic, more awake, conversive over the past 24h per reports but on conversation not able to show clear signs of repeating medical information conveyed and showing true capacity for complex medical decision making. Case discussed with IM team extensively, renal function tests cont to slowly worsen. [place] out so we do not have accurate UOP Vitals reviewed in the chart General: Appears chronically ill, NAD HEENT: Atraumatic, sclera anicteric, LFNC Neck: Supple, JVD difficult to appreciate Respiratory: Non tachypnec, b/l air entry, reduced at bases Cardiovascular: Non tachy, mostly regular Gastrointestinal: Soft, obese, NT, barbosa not present Musculoskeletal: Pitting and non pitting edema of LE b/l, shins non tender Integumentary: Xerosis, other Neuro: Awake, tracks movement, responds slowly, not much spont movement of ext noted, no tremors or myoclonus observed Blood work reviewed in the chart. Conclusions/Impression: Stage III ARF per MODE def, multifactorial but with relative hypotension earlier in admission, possible Type 1 CRS from her diastolic CHF, other insults such as Vanc administration in the setting of CrCl decline has likely led to intrinsic insult/ATN -AIN less likely despite some persistent mild pyuria, would aim for shorter course of steroids started for other drug induced rash so that steroids dont worsen confusion, fluid retention, myopathy -No emergent indication for HOSPITAL PLAN ADMINISTRATOR yet but have discussed it with pt and primary team and if pt or surrogate decision maker want aggressive medical care then may have to proceed in that direction -Place Purewick for UOP monitoring -Urine studies show low Dana and low UCl, pre-renal state as sensed by kidneys, elevated uric acid, fractional excretion of uric acid not avail -Will place on trial of IV Albumin/lasix, -Adjust meds for reduced CrCl, check vanc random level to see if it cleared from the dose given Pyuria, Enterococcus F bacteriuria POA -Treated Persistent microscopic hematuria, unspecified -Prior renal imaging on u/s and CT reviewed, GN w/u ordered by Dr. Lerma -Chronic Pulmonary HTN, unspecified Chronic peripheral edema Elevation of BNP levels Cont close monitoring of fluid balance.
[2024-08-06] MEDS: ALBUMIN HUMAN 25% 100 ML IV SCH (14:31)
[2024-08-06] MEDS: FUROSEMIDE 20 MG/ 2ML VIAL IV SCH (15:46)
[2024-08-06 16:22] LABS: Phosphorus 3.7 mg/dL (2.5-4.9)
--- NOTE | 2024-08-06 18:57 | P.PN ---
Date of Service: 08/06/24 Subjective pt is alert and conversant and at her baseline mental status from my experience meeting her on multiple past admissions, swallow study with speech therapy successful. She has a soft diet ordered Review of Systems no c/o Physical Examination - Vital Signs Reviewed - Physical Exam General: Obese, afebrile, alert and oriented, verbal HEENT: supple Neck: Supple, without JVD, Respiratory: diminished, mild rhonchi, Cardiovascular: irregular rate and rhythm, Gastrointestinal: Normal bowel sounds, obese Extremities : chronic peripheral edema, improved, continued xerosis, right great toe pics in chart, continues to improve Integumentary: pallor Neurology; eyes open spontaneously, verbal Assessment And Plan 73 yrs old Female with past medical history of anxiety, atrial fibrillation, hypertension, rheumatoid arthritis, pulmonary hypertension, morbid obesity, brought to ER with generalized weakness and fatigue for 3 days. Dry gangrenous cellulitis of right hallux complicated by septic shock status post surgical debridement on July 24 improved improving, Foot MRI no radiologic evidence of osteomyelitis, atrial fibrillation on rivaroxaban heart rate at target, continue oral 12.5 mg metoprolol with holding parameter nonoliguric LILLIAM associated #2 and nephrotoxic antibiotics (vancomycin) Hypokalemia Deferred IV fluids to nephrology - gentle hydration neph following Trend electrolytes replace as needed DVT prophylaxis; rivaroxaban Disposition; patient has a poor prognosis given multiple medical problems listed above Pt's Spouse (was her primary personal care attendant) yesterday 08/01/24 08/03/24 Stopped all antibiotics - repeat cultures negative (prelim) Creatinine still increasing - allergic interstitial nephritis?? Will discuss steroids with Dr. Lerma Pt is more alert today - Cefepime contributing to encephalopathy?? Spoke with Zulma. Discussed need to make decisions on SNF vs LTAC, palliative care vs aggressive treatment. The Family has not told her that her yet. He was her total care provider. Zulma states that her Mother never wanted to go to a SNF. Discussed poor blood bank specialist prognosis. She states she will discuss decisions and plans with Family and let us know. 08/04/24 Discussed allergic reaction/possible trial of steroids with Dr. Lerma. Decided to trial steroids 80mg Solu-medrol x 1 at 1800 last evening (08/03/24) and then 40mg IV q8h begun. Noted improved mental status this am. Will obtain swallow study this am. AM labs remain pending... 08/05/24 A&Ox3, pt and I discussed how ill she has been. I discussed with her that I had been speaking with her Daughter, Zulma, regarding decisions regarding Mrs. Morin's healthcare because she was not able to communicate her wishes with us. She immediately told me that she wanted to sign the papers. I informed CM. Mrs. Morin swallowed two large mouthfuls of water and I again have ordered speech therapy evaluation. I am vastly encouraged about the resolution of her metabolic encephalopathy and apparent reversal of her allergic rash. She has seeming recovery of all infectious/sepsis processes at this time; however, her creatinine and renal function continue to worsen. I note that a hepatitis panel has been ordered in preparation for dialysis consideration. It is my hope that now that her mental status has returned to baseline, we can now get a clear picture of the patient's wishes as she has in the past declined SNF and is unfortunately now without her /primary care provider. I await her Daughter to discuss his passing with her unless given permission to do so. 08/06/24 A&Ox3, pt repeats herself and is tangential at baseline and now. She is feeding herself her soft diet. I talked with her about her kidneys not responding to treatment and continuing to worsen. Daughter at bedside, Dr. Mckenzie and I went to patient's room. We discussed her health, her needs, and the need for SNF with potential for dialysis. She seemed to grasp that to get better, she would need to be cared for in a SNF and agreed. With the Daughter present and with her permission, we then told Mrs. Morin that her had not recovered from his stroke and had ultimately in the hospital in [place]. She resisted that information but her Daughter spoke with her and re-iterated that he did in fact . After a brief reset, she regrouped and said that she would work to get better. Diet cardiac Full code
[2024-08-07] MEDS ORDERED: METHYLPREDNISOLONE 40 MG INJ IV SCH (06:00)
[2024-08-07 06:55] LABS: Albumin 3.8 g/dL (3.4-5.0); Anion Gap 13.8 mEq/L (5.0-15.0); Phosphorus 3.6 mg/dL (2.5-4.9); Potassium 3.8 mEq/L (3.5-5.1)
--- NOTE | 2024-08-07 10:08 | P.PN ---
Date of Service: 08/07/24 Subjective pt is alert and conversant and at her baseline mental status from my experience meeting her on multiple past admissions, swallow study with speech therapy successful. She has a soft diet ordered Review of Systems no c/o Physical Examination - Vital Signs Reviewed - Physical Exam General: Obese, afebrile, alert and oriented, verbal HEENT: supple Neck: Supple, without JVD, Respiratory: diminished, mild rhonchi, Cardiovascular: irregular rate and rhythm, Gastrointestinal: Normal bowel sounds, obese Extremities : chronic peripheral edema, improved, continued xerosis, right great toe pics in chart, continues to improve Integumentary: pallor Neurology; eyes open spontaneously, verbal Assessment And Plan 73 yrs old Female with past medical history of anxiety, atrial fibrillation, hypertension, rheumatoid arthritis, pulmonary hypertension, morbid obesity, brought to ER with generalized weakness and fatigue for 3 days. Dry gangrenous cellulitis of right hallux complicated by septic shock status post surgical debridement on July 24 improved improving, Foot MRI no radiologic evidence of osteomyelitis, atrial fibrillation on rivaroxaban heart rate at target, continue oral 12.5 mg metoprolol with holding parameter nonoliguric LILLIAM associated #2 and nephrotoxic antibiotics (vancomycin) Hypokalemia Deferred IV fluids to nephrology - gentle hydration neph following Trend electrolytes replace as needed DVT prophylaxis; rivaroxaban Disposition; patient has a poor prognosis given multiple medical problems listed above Pt's Spouse (was her primary acute care nurse) yesterday 08/01/24 08/03/24 Stopped all antibiotics - repeat cultures negative (prelim) Creatinine still increasing - allergic interstitial nephritis?? Will discuss steroids with Dr. Lerma Pt is more alert today - Cefepime contributing to encephalopathy?? Spoke with Zulma. Discussed need to make decisions on SNF vs LTAC, palliative care vs aggressive treatment. The Family has not told her that her yet. He was her total care provider. Zulma states that her Mother never wanted to go to a SNF. Discussed poor watermelon inspector prognosis. She states she will discuss decisions and plans with Family and let us know. 08/04/24 Discussed allergic reaction/possible trial of steroids with Dr. Lerma. Decided to trial steroids 80mg Solu-medrol x 1 at 1800 last evening (08/03/24) and then 40mg IV q8h begun. Noted improved mental status this am. Will obtain swallow study this am. AM labs remain pending... 08/05/24 A&Ox3, pt and I discussed how ill she has been. I discussed with her that I had been speaking with her Daughter, Zulma, regarding decisions regarding Mrs. Morin's healthcare because she was not able to communicate her wishes with us. She immediately told me that she wanted to sign the papers. I informed CM. Mrs. Morin swallowed two large mouthfuls of water and I again have ordered speech therapy evaluation. I am vastly encouraged about the resolution of her metabolic encephalopathy and apparent reversal of her allergic rash. She has seeming recovery of all infectious/sepsis processes at this time; however, her creatinine and renal function continue to worsen. I note that a hepatitis panel has been ordered in preparation for dialysis consideration. It is my hope that now that her mental status has returned to baseline, we can now get a clear picture of the patient's wishes as she has in the past declined SNF and is unfortunately now without her /primary care provider. I await her Daughter to discuss his passing with her unless given permission to do so. 08/06/24 A&Ox3, pt repeats herself and is tangential at baseline and now. She is feeding herself her soft diet. I talked with her about her kidneys not responding to treatment and continuing to worsen. Daughter at bedside, Dr. Mckenzie and I went to patient's room. We discussed her health, her needs, and the need for SNF with potential for dialysis. She seemed to grasp that to get better, she would need to be cared for in a SNF and agreed. With the Daughter present and with her permission, we then told Mrs. Morin that her had not recovered from his stroke and had ultimately in the hospital in [place]. She resisted that information but her Daughter spoke with her and re-iterated that he did in fact . After a brief reset, she regrouped and said that she would work to get better. 08/07/24 eating breakfast this am. Wheezing, skin to arms mottled, fingertips of left hand with mild purple coloration, right great toe with erythema, doesn't appear to be painful for patient. Consult for PT/OT/SNF placed 08/06/24 Diet cardiac Full code
[2024-08-07] MEDS: METHYLPREDNISOLONE 40 MG INJ IV SCH (10:11)
[2024-08-08 05:05] LABS: Anion Gap 15.8 mEq/L (5.0-15.0); Phosphorus 3.6 mg/dL (2.5-4.9); Potassium 3.8 mEq/L (3.5-5.1)
[2024-08-08] MEDS: FUROSEMIDE 40 MG/4 ML VIAL IV SCH (09:14)
[2024-08-08] MEDS: METHYLPREDNISOLONE 40 MG INJ IV SCH (09:14)
--- NOTE | 2024-08-08 11:22 | P.PN ---
Date of Service: 08/08/24 Subjective pt is alert and conversant and at her baseline mental status from my experience meeting her on multiple past admissions, eating well, discussed Dr. Berman coming tomorrow to discuss HD catheter placement. Pt voices understanding. Review of Systems no c/o Physical Examination - Vital Signs Reviewed - Physical Exam General: Obese, afebrile, alert and oriented, verbal HEENT: supple Neck: Supple, without JVD, Respiratory: diminished, mild rhonchi, Cardiovascular: irregular rate and rhythm, Gastrointestinal: Normal bowel sounds, obese Extremities : chronic peripheral edema, improved, continued xerosis (improving), right great toe pics in chart, continues with erythema Integumentary: pallor Neurology; eyes open spontaneously, verbal Assessment And Plan 73 yrs old Female with past medical history of anxiety, atrial fibrillation, hypertension, rheumatoid arthritis, pulmonary hypertension, morbid obesity, brought to ER with generalized weakness and fatigue for 3 days. Dry gangrenous cellulitis of right hallux complicated by septic shock status post surgical debridement on July 24 improved improving, Foot MRI no radiologic evidence of osteomyelitis, atrial fibrillation on rivaroxaban heart rate at target, continue oral 12.5 mg metoprolol with holding parameter nonoliguric LILLIAM associated #2 and nephrotoxic antibiotics (vancomycin) Hypokalemia Deferred IV fluids to nephrology neph following Trend electrolytes replace as needed DVT prophylaxis; rivaroxaban Disposition; patient has a poor prognosis given multiple medical problems listed above Pt's Spouse (was her primary hemodialysis patient care specialist) yesterday 08/01/24 08/03/24 Stopped all antibiotics - repeat cultures negative (prelim) Creatinine still increasing - allergic interstitial nephritis?? Will discuss steroids with Dr. Lerma Pt is more alert today - Cefepime contributing to encephalopathy?? Spoke with Zulma. Discussed need to make decisions on SNF vs LTAC, palliative care vs aggressive treatment. The Family has not told her that her yet. He was her total care provider. Zulma states that her Mother never wanted to go to a SNF. Discussed poor extermination inspector prognosis. She states she will discuss decisions and plans with Family and let us know. 08/04/24 Discussed allergic reaction/possible trial of steroids with Dr. Lerma. Decided to trial steroids 80mg Solu-medrol x 1 at 1800 last evening (08/03/24) and then 40mg IV q8h begun. Noted improved mental status this am. Will obtain swallow study this am. AM labs remain pending... 08/05/24 A&Ox3, pt and I discussed how ill she has been. I discussed with her that I had been speaking with her Daughter, Zulma, regarding decisions regarding Mrs. Morin's healthcare because she was not able to communicate her wishes with us. She immediately told me that she wanted to sign the papers. I informed CM. Mrs. Morin swallowed two large mouthfuls of water and I again have ordered speech therapy evaluation. I am vastly encouraged about the resolution of her metabolic encephalopathy and apparent reversal of her allergic rash. She has seeming recovery of all infectious/sepsis processes at this time; however, her creatinine and renal function continue to worsen. I note that a hepatitis panel has been ordered in preparation for dialysis consideration. It is my hope that now that her mental status has returned to baseline, we can now get a clear picture of the patient's wishes as she has in the past declined SNF and is unfortunately now without her /primary care provider. I await her Daughter to discuss his passing with her unless given permission to do so. 08/06/24 A&Ox3, pt repeats herself and is tangential at baseline and now. She is feeding herself her soft diet. I talked with her about her kidneys not responding to treatment and continuing to worsen. Daughter at bedside, Dr. Mckenzie and I went to patient's room. We discussed her health, her needs, and the need for SNF with potential for dialysis. She seemed to grasp that to get better, she would need to be cared for in a SNF and agreed. With the Daughter present and with her permission, we then told Mrs. Morin that her had not recovered from his stroke and had ultimately in the hospital in [place]. She resisted that information but her Daughter spoke with her and re-iterated that he did in fact . After a brief reset, she regrouped and said that she would work to get better. 08/07/24 eating breakfast this am. Wheezing, skin to arms mottled, fingertips of left hand with mild purple coloration, right great toe with erythema, doesn't appear to be painful for patient. Consult for PT/OT/SNF placed 08/06/24 08/08/24 doing well, alert, conversant, eating well. skin remains mottled, renal function continues to decline. Lasix increased to 40mg BID last pm, remains oliguric (600ml in 48h), steroids continue to wean. Plan for HD cath tomorrow. Diet renal Full code full
[2024-08-09 01:31] LABS: Complement C3 99 mg/dL (83-193)
[2024-08-09 05:43] LABS: Anion Gap 15.9 mEq/L (5.0-15.0); Phosphorus 4.1 mg/dL (2.5-4.9); Potassium 3.9 mEq/L (3.5-5.1)
[2024-08-09] MEDS: KCL 20 MEQ/100 mL IVPB 20 MEQ/100 ML BAG IV SCH (08:52)
[2024-08-09] MEDS: NA CHLORIDE 0.9% 250 ML IV ONE (08:52)
[2024-08-09] MEDS: cloNIDine HCL 0.1 MG TAB PO ONE (15:13)
--- NOTE | 2024-08-09 17:55 | PN ---
Subjective: Patient lying in bed. Denies any headache, nausea, vomiting, chest pain, abdominal pain , constipation, or diarrhea. Objective: Vital Signs: Temperature 98, pulse 100, respirations 18, blood pressure 185/93. Lungs: Basal crackles. Heart: S1, S2. Regular. Abdomen: Soft, nontender. Bowel sounds present. Extremities: No edema. Laboratory Data: WBC 6.8, hemoglobin 9.5, platelets 218. Chemistry shows BUN of 100, creatinine of 6.4. Assessment And Plan: Right hallux dry gangrene. Cellulitis improved. The patient is off antibiotic . Acute kidney injury possibly secondary to medication versus sepsis. Anemia of chronic disease. L eukocytosis, improved. We will follow the patient as needed. NF/MODL Voice ID: [id number] Report ID: [id number]
--- NOTE | 2024-08-09 19:39 | P.PN ---
Date of Service: 08/09/24 Vital Signs Temp Pulse Resp BP Pulse Ox 98.0 F 83 16 167/82 H 94 08/09/24 16:00 08/09/24 17:31 08/09/24 16:00 08/09/24 17:31 08/09/24 16:00 Medications Acetaminophen (Acetaminophen 650mg/Rect Supp) 650 mg NV Q6H PRN PRN Reason: TEMP > 100' F Diphenhydramine HCl (Diphenhydramine 50 Mg/Ml Vial) 12.5 mg IV Q6H PRN PRN Reason: ITCHING Last Admin: 08/07/24 20:03 Dose: 12.5 mg Furosemide (Furosemide 40 Mg/4 Ml Vial) 40 mg IV BIDL [facility] Last Admin: 08/09/24 17:31 Dose: 40 mg Glucagon (Glucagon 1 Mg/Vial) 1 mg IM 1X PRN PRN Reason: HYPOGLYCEMIA Hydralazine HCl (Hydralazine Hcl 20 Mg/Ml Vial) 10 mg IV Q6HP PRN PRN Reason: FOR SBP>160 OR DBP>100 MMHG Last Admin: 08/09/24 08:53 Dose: 10 mg Dextrose (Dextrose 10% Water Iv Soln.) 125 mls @ 0 mls/hr IV PRN PRN; Protocol PRN Reason: HYPOGLYCEMIA Insulin Human Regular (Insulin Regular (Human) 100 Unit/Ml) 0 unit SQ ACHS [facility]; Protocol Last Admin: 08/09/24 16:07 Dose: Not Given Lidocaine (Lidocaine 4% Patch) 1 patch TOP DAILY [facility] Last Admin: 08/09/24 08:53 Dose: 1 patch Metoprolol Tartrate (Metoprolol Tartrate 5 Mg/5 Ml Inj) 5 mg IV Q6H [facility] Last Admin: 08/09/24 17:31 Dose: 5 mg Nutritional Formula (Ensure High Protein 237 Ml Can) 233 ml PO TID [facility] Last Admin: 08/09/24 13:51 Dose: Not Given Ondansetron HCl (Ondansetron 4 Mg/2 Ml Vial) 4 mg IV Q6HP PRN PRN Reason: NAUSEA / VOMITING Microbiology Results 07/15/24 19:11 Clean Catch Urine [place] Count - Final BETWEEN 10,000 & 100,000 CFU/ML 07/15/24 19:11 Clean Catch Urine - Final Enterococcus Faecalis Assessment/ Plan: Nephrology No dyspnea No chest pain Mental status improved No acute events overnight Vitals, medications, blood work and imaging reviewed in the chart General: In no apparent distress. Obese. Awake and Alert HEENT: Atraumatic Neck: Supple Respiratory: Normal air movement Cardiovascular: Normal S1 S2, Hip Edema Gastrointestinal: Soft and benign, Non-distended, No guarding Musculoskeletal: No clubbing, No contractures Integumentary: No cyanosis [place] light Blood work reviewed in the chart. Imagings Data: EXAM: Chest Single View HISTORY: sob COMPARISON: 07/22/2024 FINDINGS: LUNGS/PLEURA: The lungs are clear. No pleural effusions or pneumothorax. No pulmonary edema. MEDIASTINUM: The mediastinal silhouette is within normal limits. CARDIAC: Moderate cardiomegaly is similar. UPPER ABDOMEN: No significant abnormality. BONES: No acute abnormality. LINES/TUBES/OTHER: Right subclavian approach PICC with tip overlying the distal SVC in satisfactory position. IMPRESSION: No evidence of acute cardiopulmonary disease. EXAM: Foot Right Wo Cont HISTORY: right foot infected wound; eval for osteo COMPARISON: 07/21/2024 foot radiograph TECHNIQUE: Multiplanar multisequence MR images were obtained of the imaged foot without contrast. FINDINGS: No marrow signal abnormality is seen in the visualized bones to suggest osteomyelitis. No focal fluid collection is seen in the soft tissues. Generalized subcutaneous edema is present. There is an ulceration along the medial posterior aspect of the foot at the level of the first metatarsal head. The muscles and tendons appear grossly intact. IMPRESSION: No significant marrow signal abnormality to suggest osteomyelitis. Please note that evaluation is limited without IV contrast. No fracture identified. LEFT VENTRICULAR WALL MOTION: NORMAL DOPPLER/COLOR FLOW: SEE BELOW COMMENTS: 1. NORMAL LEFT VENTRICULAR EJECTION FRACTION 50-55% 2. NORMAL WALL MOTION 3. LEFT ATRIAL ENLARGEMENT 4. ATRIAL FIBRILLATION 5. BI-ATRIAL ENLARGEMENT 6. SEVERE PULMONARY HYPERTENSION WITH RIGHT VENTRICULAR SYSTOLIC PRESSURE GREATER THAN 60 mmHg Conclusions/Impression: Stage III LILLIAM may be due to intravascular hypovolemia in the setting of severe pulmonary hypertension complicated by elevated vancomycin levels resulting in ATN Proteinuria -No NSAIDs -GN labs pending for persistent hematuria -Plan for tunneled CVC and HD initiation for LILLIAM Hypokalemia -Replete prn Hypophosphatemia -Replete prn HTN with Tachycardia -Continue Metoprolol 5mg IV q6h -Hydralazine IV prn Severe Pulmonary HTN Peripheral Edema/ Anasarca -Elevated BNP expected Hypoalbuminemia -Continue Ensure as tolerated Anemia in chronic illness -Monitor H&H -PRBC prn Recurrent UTI, resolved -ID following Dry gangrenous cellulitis of right hallux status post surgical debridement 07-24-24 -Continue wound care Hospitalist note reviewed
[2024-08-10] MEDS: cloNIDine HCL 0.1 MG TAB PO ONE (04:11)
[2024-08-10 05:05] LABS: Albumin 3.7 g/dL (3.4-5.0); Anion Gap 13.9 mEq/L (5.0-15.0); Phosphorus 4.4 mg/dL (2.5-4.9); Potassium 3.9 mEq/L (3.5-5.1)
[2024-08-10 05:37] VITALS: BMI 49.4
[2024-08-10] MEDS ORDERED: propofoL 200 MG/20 ML VIAL IV ONE (07:07)
[2024-08-10] MEDS ORDERED: ONDANSETRON 4 MG/2 ML VIAL ONE (07:07)
[2024-08-10] MEDS ORDERED: FENTANYL CITR 100 MCG/2 ML ONE (07:07)
[2024-08-10] MEDS ORDERED: LIDOCAINE 2% MPF 5 ML VIAL ONE (07:08)
[2024-08-10] MEDS ORDERED: MANNITOL 25% 12.5 GM/50 ML VIAL IV PRN (07:56)
[2024-08-10] MEDS ORDERED: NA CHLORIDE 0.9% 1,000 ML IV PRN (07:56)
[2024-08-10] MEDS ORDERED: ALBUMIN HUMAN 25% 50 ML IV SCH (08:00)
[2024-08-10] MEDS: NA CHLORIDE 0.9% 100 ML ONE (08:33)
[2024-08-10] MEDS: NA CHLORIDE 0.9% 1,000 ML ONE (08:45)
[2024-08-10] MEDS: LOSARTAN POTASSIUM 50 MG TABLET PO SCH (08:48)
--- NOTE | 2024-08-10 08:51 | P.PN ---
Date of Service: 08/10/24 Subjective: Patient has renal failure requiring dialysis. I was asked to place a tunneled dialysis catheter. Patient is awake and alert. Patient is in no acute distress. The risk, benefits and alternatives of the procedure were discussed with the daughter. She understood and agreed to the procedure. Objective: Vital signs are stable, she is afebrile Head and Neck: Supple, no JVD, throat clear and neck supple Chest: Clear Heart: S1-S2 Abdomen: Soft Extremity: Neurovascular intact Neuro: Nonfocal Diagnostic data: Reviewed Assessment: Acute renal failure requiring long-term dialysis next Plan: Placement of tunneled dialysis catheter. Patient and family understand risk, benefits and alternatives and agreed to procedure.
[2024-08-10] MEDS: CEFAZOLIN SODIUM 1 GM/VIAL ONE (09:06)
[2024-08-10] MEDS: BUPIVACAINE 0.5% PF 10 ML VIAL ONE (09:24)
[2024-08-10] MEDS ORDERED: ETOMIDATE 20 MG/10 ML VIAL IV ONE (09:24)
[2024-08-10] MEDS ORDERED: EPHEDRINE SULF 50 MG/ML VIAL ONE (09:33)
[2024-08-10] MEDS: HEPARIN 5000 UNIT/ML 1 ML VIAL ONE (09:54)
--- NOTE | 2024-08-10 10:36 | RAD REPORT ---
Exam: Fluoroscopy less than one hour CLINICAL HISTORY: hemodialysis catheter placement FINDINGS: Hemodialysis catheter placed into the superior vena cava. Procedure performed by Dr. Berman. 2 fluoroscopic spot images obtained. Fluoroscopy time 0 minutes
--- NOTE | 2024-08-10 10:38 | P.OP ---
Date of Service: 08/10/24 Preop diagnosis: Acute renal failure Postop diagnosis: Same Procedure performed: Placement of right IJ tunneled dialysis catheter, Doppler and fluoroscopy Surgeon: Floyd Berman MD Relationship Manager: None Estimated blood loss: Minimal Specimen: None Findings: Normal anatomy Anesthesia: General Complications: None Drains: None Fluids and blood products: Nonapplicable Disposition: Recovery room Operative note: Patient brought to the OR and placed in the supine position. General anesthesia began. Patient prepped and draped in usual sterile fashion. Lidocaine 1% infiltrated locally. Doppler device used to identify the right internal jugular vein. 18-gauge needle used to access the vein. Guidewire passed and position confirmed with fluoroscopy. A counterincision made on the right anterior chest. Tunneling device used to tunnel the catheter between the 2 wounds. Seldinger technique used. Tip of the catheter placed in the SVC right atrial junction. Fluoroscopy used during this process. Catheter flushed with heparin and packed with heparin with good blood flow. 3-0 chromic used to approximate subcutaneous tissue and close skin. 3-0 nylon used to secure the tube to the chest wall. Sterile dressing applied. Patient awakened and taken to recovery room in good general condition. CC:
--- NOTE | 2024-08-10 10:48 | RAD REPORT ---
Procedure: Chest Single View HISTORY: Central venous catheter placement FINDINGS: A central venous catheter has been inserted with its tip in the SVC. No pneumothorax.
[2024-08-10 13:27] LABS: Anti-Nuclear Antibody Screen Negative (Negative)
--- NOTE | 2024-08-10 15:20 | PN ---
Subjective: The patient had her HD catheter placement today and getting dialyzed. Denies any other problems. Objective: Vital signs: Reviewed. Lungs: Basal crackles. Heart: S1, S2. Regular. Abdomen: Soft, nontender. Bowel sounds present. Extremities: 2+ edema. Laboratory Data: Labs reviewed. Assessment And Plan: 1. Cellulitis and dry gangrene of the right big toe and foot. The patient improving. 2. Acute kidney injury secondary to medication. The patient improving and we will continue to monito r for signs of infection, WBC, and fever trends. No other recommendation at this time. NF/MODL Voice ID: [id number] Report ID: [id number]
[2024-08-10] MEDS: NEPRO SHAKE 237 ML CAN PO SCH (21:12)
--- NOTE | 2024-08-10 22:02 | P.PN ---
Date of Service: 08/10/24 Vital Signs Temp Pulse Resp BP Pulse Ox 97.5 F 77 18 156/70 H 95 08/10/24 20:00 08/10/24 20:00 08/10/24 20:00 08/10/24 20:00 08/10/24 20:00 Medications Acetaminophen (Acetaminophen 650mg/Rect Supp) 650 mg VT Q6H PRN PRN Reason: TEMP > 100' F Diphenhydramine HCl (Diphenhydramine 50 Mg/Ml Vial) 12.5 mg IV Q6H PRN PRN Reason: ITCHING Last Admin: 08/07/24 20:03 Dose: 12.5 mg Enteral Nutritional Formula (Nepro Shake 237 Ml Can) 237 ml PO BID RUBY Last Admin: 08/10/24 21:12 Dose: 237 ml Furosemide (Furosemide 40 Mg/4 Ml Vial) 40 mg IV BIDL RUBY Last Admin: 08/10/24 17:37 Dose: 40 mg Glucagon (Glucagon 1 Mg/Vial) 1 mg IM 1X PRN PRN Reason: HYPOGLYCEMIA Heparin Sodium (Porcine) (Heparin 1,000 Unit/Ml Vial) 6,000 unit IV EVERY HD PRN PRN Reason: AFTER EACH Last Admin: 08/10/24 13:20 Dose: 6,000 unit Hydralazine HCl (Hydralazine Hcl 20 Mg/Ml Vial) 10 mg IV Q6HP PRN PRN Reason: FOR SBP>160 OR DBP>100 MMHG Last Admin: 08/09/24 20:35 Dose: 10 mg Dextrose (Dextrose 10% Water Iv Soln.) 125 mls @ 0 mls/hr IV PRN PRN; Protocol PRN Reason: HYPOGLYCEMIA Sodium Chloride (Ns 1000 Ml Ivbag) 1,000 mls @ 0 mls/hr IV .Q0M PRN; Protocol PRN Reason: Priming and BP support at HD Stop: 08/10/24 23:59 Albumin Human (Albumin 25%) 50 mls @ 100 mls/hr IV EVERY HD [facility] Insulin Human Regular (Insulin Regular (Human) 100 Unit/Ml) 0 unit SQ ACHS [facility]; Protocol Last Admin: 08/10/24 21:00 Dose: Not Given Lidocaine (Lidocaine 4% Patch) 1 patch TOP DAILY [facility] Last Admin: 08/10/24 17:37 Dose: 1 patch Losartan Potassium (Losartan Potassium 50 Mg Tablet) 50 mg PO BID RUBY Last Admin: 08/10/24 21:11 Dose: 50 mg Mannitol (Mannitol 25% 12.5 Gm/50 Ml Vial) 12.5 gm IV EVERY HD PRN PRN Reason: Titrate to SBP (MUST DEFINE) Metoprolol Tartrate (Metoprolol Tartrate 5 Mg/5 Ml Inj) 5 mg IV Q6H [facility] Last Admin: 08/10/24 17:37 Dose: 5 mg Ondansetron HCl (Ondansetron 4 Mg/2 Ml Vial) 4 mg IV Q6HP PRN PRN Reason: NAUSEA / VOMITING Microbiology Results 07/15/24 19:11 Clean Catch Urine [place] Count - Final BETWEEN 10,000 & 100,000 CFU/ML 07/15/24 19:11 Clean Catch Urine - Final Enterococcus Faecalis Assessment/ Plan: Nephrology No dyspnea No chest pain Mental status improved No acute events overnight Vitals, medications, blood work and imaging reviewed in the chart General: In no apparent distress. Obese. Awake and Alert HEENT: Atraumatic Neck: Supple Respiratory: Normal air movement Cardiovascular: Normal S1 S2, Hip Edema Gastrointestinal: Soft and benign, Non-distended, No guarding Musculoskeletal: No clubbing, No contractures Integumentary: No cyanosis [place] light Blood work reviewed in the chart. Imagings Data: EXAM: Chest Single View HISTORY: sob COMPARISON: 07/22/2024 FINDINGS: LUNGS/PLEURA: The lungs are clear. No pleural effusions or pneumothorax. No pulmonary edema. MEDIASTINUM: The mediastinal silhouette is within normal limits. CARDIAC: Moderate cardiomegaly is similar. UPPER ABDOMEN: No significant abnormality. BONES: No acute abnormality. LINES/TUBES/OTHER: Right subclavian approach PICC with tip overlying the distal SVC in satisfactory position. IMPRESSION: No evidence of acute cardiopulmonary disease. EXAM: Foot Right Wo Cont HISTORY: right foot infected wound; eval for osteo COMPARISON: 07/21/2024 foot radiograph TECHNIQUE: Multiplanar multisequence MR images were obtained of the imaged foot without contrast. FINDINGS: No marrow signal abnormality is seen in the visualized bones to suggest osteomyelitis. No focal fluid collection is seen in the soft tissues. Generalized subcutaneous edema is present. There is an ulceration along the medial posterior aspect of the foot at the level of the first metatarsal head. The muscles and tendons appear grossly intact. IMPRESSION: No significant marrow signal abnormality to suggest osteomyelitis. Please note that evaluation is limited without IV contrast. No fracture identified. LEFT VENTRICULAR WALL MOTION: NORMAL DOPPLER/COLOR FLOW: SEE BELOW COMMENTS: 1. NORMAL LEFT VENTRICULAR EJECTION FRACTION 50-55% 2. NORMAL WALL MOTION 3. LEFT ATRIAL ENLARGEMENT 4. ATRIAL FIBRILLATION 5. BI-ATRIAL ENLARGEMENT 6. SEVERE PULMONARY HYPERTENSION WITH RIGHT VENTRICULAR SYSTOLIC PRESSURE GREATER THAN 60 mmHg Conclusions/Impression: Stage III LILLIAM may be due to intravascular hypovolemia in the setting of severe pulmonary hypertension complicated by elevated vancomycin levels resulting in ATN Proteinuria -No NSAIDs -GN labs pending for persistent hematuria -Plan for tunneled CVC and HD initiation for LILLIAM Hypokalemia -Replete prn Hypophosphatemia -Replete prn HTN with Tachycardia -Continue Metoprolol 5mg IV q6h -Hydralazine IV prn Severe Pulmonary HTN Peripheral Edema/ Anasarca -Elevated BNP expected Hypoalbuminemia -Continue Ensure as tolerated Anemia in chronic illness -Monitor H&H -PRBC prn Recurrent UTI, resolved -ID following Dry gangrenous cellulitis of right hallux status post surgical debridement 07-24-24 -Continue wound care Hospitalist note reviewed
[2024-08-11 05:09] LABS: Albumin 3.4 g/dL (3.4-5.0); Anion Gap 11.7 mEq/L (5.0-15.0); Potassium 3.7 mEq/L (3.5-5.1)
[2024-08-11 08:58] LABS: C-ANCA Anti-Proteinase 3 <1.0 AI (<1.0); P-ANCA Anti-Myeloperoxidase Ab <1.0 AI (<1.0)
[2024-08-11] MEDS: POTASSIUM CL SA 10 MEQ TAB PO ONE (09:00)
--- NOTE | 2024-08-11 12:44 | PN ---
Date of Progress Note: 08/11/2024 Last night, the nursing staff notified me that the patient was oozing a little bit from her insertion site of the dialysis catheter. I advised the staff to put Surgicel, Gelfoam, and a pressure dressin g. The patient has not had any bleeding since that time. I evaluated the wound, this morning. The dressing is clean, dry, and intact. There is no evidence of bleeding. I would recommend continued p ressure dressing and head of bed elevation after dialysis, and reconsult Surgery p.r.n. /MODL Voice ID: [id number] Report ID: [id number]
--- NOTE | 2024-08-11 12:59 | PN ---
Subjective: The patient is lying in bed, getting dialyzed. Denies any headache, nausea, vomiting, c hest pain, abdominal pain, constipation, or diarrhea. Objective: Vital Signs: Temperature 97, pulse 60, respirations 12, blood pressure 139/60. Lungs: Basal crackles. Heart: S1, S2. Regular. Abdomen: Soft, nontender. Bowel sounds present. Extremities: Trace edema. Wounds noted. Assessment And Plan: 1. Cellulitis of foot and right big toe, improved. 2. Acute kidney injury, on dialysis, most likely secondary to medication. 3. Anemia of chronic disease. Continue supportive care and wound care. We will follow the patient as needed. NF/MODL Voice ID: [id number] Report ID: [id number]
--- NOTE | 2024-08-11 21:09 | P.PN ---
Date of Service: 08/11/24 Vital Signs Temp Pulse Resp BP Pulse Ox 97.4 F 74 12 134/71 98 08/11/24 16:00 08/11/24 16:00 08/11/24 16:00 08/11/24 16:00 08/11/24 16:00 Medications Acetaminophen (Acetaminophen 650mg/Rect Supp) 650 mg WA Q6H PRN PRN Reason: TEMP > 100' F Diphenhydramine HCl (Diphenhydramine 50 Mg/Ml Vial) 12.5 mg IV Q6H PRN PRN Reason: ITCHING Last Admin: 08/07/24 20:03 Dose: 12.5 mg Enteral Nutritional Formula (Nepro Shake 237 Ml Can) 237 ml PO BID RUBY Last Admin: 08/11/24 20:09 Dose: 237 ml Furosemide (Furosemide 40 Mg/4 Ml Vial) 40 mg IV BIDL [facility] Last Admin: 08/11/24 17:10 Dose: 40 mg Glucagon (Glucagon 1 Mg/Vial) 1 mg IM 1X PRN PRN Reason: HYPOGLYCEMIA Heparin Sodium (Porcine) (Heparin 1,000 Unit/Ml Vial) 6,000 unit IV EVERY HD PRN PRN Reason: AFTER EACH Last Admin: 08/11/24 13:49 Dose: 6,000 unit Hydralazine HCl (Hydralazine Hcl 20 Mg/Ml Vial) 10 mg IV Q6HP PRN PRN Reason: FOR SBP>160 OR DBP>100 MMHG Last Admin: 08/09/24 20:35 Dose: 10 mg Dextrose (Dextrose 10% Water Iv Soln.) 125 mls @ 0 mls/hr IV PRN PRN; Protocol PRN Reason: HYPOGLYCEMIA Albumin Human (Albumin 25%) 50 mls @ 100 mls/hr IV EVERY HD [facility] Insulin Human Regular (Insulin Regular (Human) 100 Unit/Ml) 0 unit SQ ACHS [facility]; Protocol Last Admin: 08/11/24 16:30 Dose: Not Given Lidocaine (Lidocaine 4% Patch) 1 patch TOP DAILY [facility] Last Admin: 08/11/24 09:03 Dose: 1 patch Losartan Potassium (Losartan Potassium 50 Mg Tablet) 50 mg PO BID [facility] Last Admin: 08/11/24 20:09 Dose: 50 mg Mannitol (Mannitol 25% 12.5 Gm/50 Ml Vial) 12.5 gm IV EVERY HD PRN PRN Reason: Titrate to SBP (MUST DEFINE) Metoprolol Tartrate (Metoprolol Tartrate 5 Mg/5 Ml Inj) 5 mg IV Q6H RUBY Last Admin: 08/11/24 18:19 Dose: 5 mg Ondansetron HCl (Ondansetron 4 Mg/2 Ml Vial) 4 mg IV Q6HP PRN PRN Reason: NAUSEA / VOMITING Microbiology Results 07/15/24 19:11 Clean Catch Urine [place] Count - Final BETWEEN 10,000 & 100,000 CFU/ML 07/15/24 19:11 Clean Catch Urine - Final Enterococcus Faecalis Assessment/ Plan: Nephrology No dyspnea No chest pain Confusion today No acute events overnight Vitals, medications, blood work and imaging reviewed in the chart General: In no apparent distress. Obese. Awake and Alert HEENT: Atraumatic Neck: Supple Respiratory: Normal air movement Cardiovascular: Normal S1 S2, Hip Edema Gastrointestinal: Soft and benign, Non-distended, No guarding Musculoskeletal: No clubbing, No contractures Integumentary: No cyanosis [place] light Blood work reviewed in the chart. Imagings Data: EXAM: Chest Single View HISTORY: sob COMPARISON: 07/22/2024 FINDINGS: LUNGS/PLEURA: The lungs are clear. No pleural effusions or pneumothorax. No pulmonary edema. MEDIASTINUM: The mediastinal silhouette is within normal limits. CARDIAC: Moderate cardiomegaly is similar. UPPER ABDOMEN: No significant abnormality. BONES: No acute abnormality. LINES/TUBES/OTHER: Right subclavian approach PICC with tip overlying the distal SVC in satisfactory position. IMPRESSION: No evidence of acute cardiopulmonary disease. EXAM: Foot Right Wo Cont HISTORY: right foot infected wound; eval for osteo COMPARISON: 07/21/2024 foot radiograph TECHNIQUE: Multiplanar multisequence MR images were obtained of the imaged foot without contrast. FINDINGS: No marrow signal abnormality is seen in the visualized bones to suggest osteomyelitis. No focal fluid collection is seen in the soft tissues. Generalized subcutaneous edema is present. There is an ulceration along the medial posterior aspect of the foot at the level of the first metatarsal head. The muscles and tendons appear grossly intact. IMPRESSION: No significant marrow signal abnormality to suggest osteomyelitis. Please note that evaluation is limited without IV contrast. No fracture identified. LEFT VENTRICULAR WALL MOTION: NORMAL DOPPLER/COLOR FLOW: SEE BELOW COMMENTS: 1. NORMAL LEFT VENTRICULAR EJECTION FRACTION 50-55% 2. NORMAL WALL MOTION 3. LEFT ATRIAL ENLARGEMENT 4. ATRIAL FIBRILLATION 5. BI-ATRIAL ENLARGEMENT 6. SEVERE PULMONARY HYPERTENSION WITH RIGHT VENTRICULAR SYSTOLIC PRESSURE GREATER THAN 60 mmHg Conclusions/Impression: Stage III LILLIAM may be due to intravascular hypovolemia in the setting of severe pulmonary hypertension complicated by elevated vancomycin levels resulting in ATN Proteinuria -No NSAIDs -GN labs pending for persistent hematuria -Tunneled CVC and HD initiation for LILLIAM on 08-10-24 Hypokalemia -Replete prn Hypophosphatemia -Replete prn HTN with Tachycardia -Continue Metoprolol 5mg IV q6h -Hydralazine IV prn Severe Pulmonary HTN Peripheral Edema/ Anasarca -Elevated BNP expected -UF with HD Hypoalbuminemia -Continue Ensure as tolerated Anemia in chronic illness -Monitor H&H -PRBC prn -Retacrit X1 Recurrent UTI, resolved -ID following Dry gangrenous cellulitis of right hallux status post surgical debridement 07-24-24 -Continue wound care Hospitalist note reviewed Plan for placement in [place] Case reviewed with social work associate
[2024-08-12 05:56] LABS: Anion Gap 10.8 mEq/L (5.0-15.0); Magnesium 1.7 mg/dL (1.6-2.4); Potassium 3.8 mEq/L (3.5-5.1)
[2024-08-12] MEDS: POTASSIUM CL SA 10 MEQ TAB PO ONE (10:08)
[2024-08-12] MEDS: MAGNESIUM SULFATE 1 gm IVPB 1 GM/100 ML BAG IV ONE (10:08)
[2024-08-12] MEDS: EPOETIN ALFA 10,000 UNIT/ML VIAL SQ SCH (10:09)
--- NOTE | 2024-08-12 20:56 | P.PN ---
Date of Service: 08/12/24 Vital Signs Temp Pulse Resp BP Pulse Ox 97.7 F 62 20 146/65 H 100 08/12/24 12:00 08/12/24 12:00 08/12/24 12:00 08/12/24 12:00 08/12/24 12:00 Medications Acetaminophen (Acetaminophen 650mg/Rect Supp) 650 mg [place] Q6H PRN PRN Reason: TEMP > 100' F Diphenhydramine HCl (Diphenhydramine 50 Mg/Ml Vial) 12.5 mg IV Q6H PRN PRN Reason: ITCHING Last Admin: 08/12/24 10:09 Dose: 12.5 mg Enteral Nutritional Formula (Nepro Shake 237 Ml Can) 237 ml PO BID RUBY Last Admin: 08/12/24 09:00 Dose: 237 ml Furosemide (Furosemide 40 Mg/4 Ml Vial) 40 mg IV BIDL [facility] Last Admin: 08/12/24 17:00 Dose: Not Given Glucagon (Glucagon 1 Mg/Vial) 1 mg IM 1X PRN PRN Reason: HYPOGLYCEMIA Heparin Sodium (Porcine) (Heparin 1,000 Unit/Ml Vial) 6,000 unit IV EVERY HD PRN PRN Reason: AFTER EACH Last Admin: 08/12/24 18:20 Dose: 6,000 unit Hydralazine HCl (Hydralazine Hcl 20 Mg/Ml Vial) 10 mg IV Q6HP PRN PRN Reason: FOR SBP>160 OR DBP>100 MMHG Last Admin: 08/09/24 20:35 Dose: 10 mg Dextrose (Dextrose 10% Water Iv Soln.) 125 mls @ 0 mls/hr IV PRN PRN; Protocol PRN Reason: HYPOGLYCEMIA Albumin Human (Albumin 25%) 50 mls @ 100 mls/hr IV EVERY HD [facility] Insulin Human Regular (Insulin Regular (Human) 100 Unit/Ml) 0 unit SQ ACHS [facility]; Protocol Last Admin: 08/12/24 16:30 Dose: Not Given Lidocaine (Lidocaine 4% Patch) 1 patch TOP DAILY [facility] Last Admin: 08/12/24 10:08 Dose: 1 patch Losartan Potassium (Losartan Potassium 50 Mg Tablet) 50 mg PO BID RUBY Last Admin: 08/12/24 10:08 Dose: 50 mg Mannitol (Mannitol 25% 12.5 Gm/50 Ml Vial) 12.5 gm IV EVERY HD PRN PRN Reason: Titrate to SBP (MUST DEFINE) Metoprolol Tartrate (Metoprolol Tartrate 5 Mg/5 Ml Inj) 5 mg IV Q6H RUBY Last Admin: 08/12/24 17:30 Dose: Not Given Ondansetron HCl (Ondansetron 4 Mg/2 Ml Vial) 4 mg IV Q6HP PRN PRN Reason: NAUSEA / VOMITING Microbiology Results 07/15/24 19:11 Clean Catch Urine [place] Count - Final BETWEEN 10,000 & 100,000 CFU/ML 07/15/24 19:11 Clean Catch Urine - Final Enterococcus Faecalis Assessment/ Plan: Nephrology No dyspnea No chest pain Persistent confusion No acute events overnight Vitals, medications, blood work and imaging reviewed in the chart General: In no apparent distress. Obese. Awake and Alert HEENT: Atraumatic Neck: Supple Respiratory: Normal air movement Cardiovascular: Normal S1 S2, Hip Edema Gastrointestinal: Soft and benign, Non-distended, No guarding Musculoskeletal: No clubbing, No contractures Integumentary: No cyanosis [place] light Blood work reviewed in the chart. Imagings Data: EXAM: Chest Single View HISTORY: sob COMPARISON: 07/22/2024 FINDINGS: LUNGS/PLEURA: The lungs are clear. No pleural effusions or pneumothorax. No pulmonary edema. MEDIASTINUM: The mediastinal silhouette is within normal limits. CARDIAC: Moderate cardiomegaly is similar. UPPER ABDOMEN: No significant abnormality. BONES: No acute abnormality. LINES/TUBES/OTHER: Right subclavian approach PICC with tip overlying the distal SVC in satisfactory position. IMPRESSION: No evidence of acute cardiopulmonary disease. EXAM: Foot Right Wo Cont HISTORY: right foot infected wound; eval for osteo COMPARISON: 07/21/2024 foot radiograph TECHNIQUE: Multiplanar multisequence MR images were obtained of the imaged foot without contrast. FINDINGS: No marrow signal abnormality is seen in the visualized bones to suggest osteomyelitis. No focal fluid collection is seen in the soft tissues. Generalized subcutaneous edema is present. There is an ulceration along the medial posterior aspect of the foot at the level of the first metatarsal head. The muscles and tendons appear grossly intact. IMPRESSION: No significant marrow signal abnormality to suggest osteomyelitis. Please note that evaluation is limited without IV contrast. No fracture identified. LEFT VENTRICULAR WALL MOTION: NORMAL DOPPLER/COLOR FLOW: SEE BELOW COMMENTS: 1. NORMAL LEFT VENTRICULAR EJECTION FRACTION 50-55% 2. NORMAL WALL MOTION 3. LEFT ATRIAL ENLARGEMENT 4. ATRIAL FIBRILLATION 5. BI-ATRIAL ENLARGEMENT 6. SEVERE PULMONARY HYPERTENSION WITH RIGHT VENTRICULAR SYSTOLIC PRESSURE GREATER THAN 60 mmHg Conclusions/Impression: Stage III LILLIAM may be due to intravascular hypovolemia in the setting of severe pulmonary hypertension complicated by elevated vancomycin levels resulting in ATN Proteinuria -No NSAIDs -GN labs pending for persistent hematuria -Tunneled CVC and HD initiation for LILLIAM on 08-10-24 -HD as ordered Hypokalemia -Replete prn Hypophosphatemia -Replete prn HTN with Tachycardia -Change IV Metoprolol to Atenolol -Hydralazine IV prn Severe Pulmonary HTN Peripheral Edema/ Anasarca -Elevated BNP expected -UF with HD -Continue Lasix Hypoalbuminemia -Continue Ensure as tolerated Anemia in chronic illness -Monitor H&H -PRBC prn -Retacrit prn Recurrent UTI, resolved -ID following Dry gangrenous cellulitis of right hallux status post surgical debridement 07-24-24 -Continue wound care Hospitalist note reviewed Plan for SNF placement in [place]. Plan for [facility] placement under the care of Dr. Gonzalez
[2024-08-12] MEDS: atenoloL 25 MG TAB PO SCH (21:11)
[2024-08-13 00:28] VITALS: O2SAT 98
[2024-08-13] MEDS: TRAMADOL HCL 50 MG TAB PO ONE (00:55)
[2024-08-13] MEDS: ACETAMINOPHEN 325 MG TABLET PO PRN (05:18)
--- NOTE | 2024-08-13 11:53 | P.PN ---
Nephrology (S) Remains in stable condition, has tolerated initiation of dialysis, last HD yesterday, barbosa remains in place, non anuric, reports some itching around TDC catheter, anxious, plan for transfer to SNF noted Vitals reviewed in the chart General: Appears chronically ill, NAD HEENT: Atraumatic, sclera anicteric, LFNC Neck: Supple, JVD difficult to appreciate Respiratory: Non tachypnec, b/l air entry, reduced at bases Cardiovascular: Non tachy, mostly regular Gastrointestinal: Soft, obese, NT, barbosa not present Musculoskeletal: Pitting and non pitting edema of LE b/l still present, greater distally, shins non tender Integumentary: Xerosis, other Neuro: Awake, responds slowly but able to carry conversation, not much spont movement of ext noted, no tremors or myoclonus observed Blood work reviewed in the chart. Conclusions/Impression: Stage III ARF per MODE def, multifactorial but with relative hypotension earlier in admission, possible Type 1 CRS from her diastolic CHF, other insults such as Vanc administration in the setting of CrCl decline with delayed clearance has likely led to some intrinsic insult/ATN -AIN was felt less likely despite some persistent mild pyuria, would aim for shorter course of steroids started for other drug induced rash so that steroids dont worsen confusion, fluid retention, myopathy -Urine studies show low Dana and low UCl, pre-renal state as sensed by kidneys, elevated uric acid, fractional excretion of uric acid not avail -Did not respond to trial of IV Albumin/lasix, but non anuric -Maintain barbosa for now to monitor UOP closely -Initiated HD earlier in the week, cont iHD via TDC -Monitoring for renal recovery at the OP dialysis unit, arrangements made by CM Pyuria, Enterococcus F bacteriuria POA -Treated Persistent microscopic hematuria, unspecified -Prior renal imaging on u/s and CT reviewed, GN serologic w/u came back neg -Chronic Pulmonary HTN, unspecified Chronic peripheral edema Elevation of BNP levels Cont close monitoring of fluid balance. UF on dialysis as tolerated
[2024-08-13 12:18] VITALS: TEMP 97.7
[2024-08-13] MEDS: FUROSEMIDE 40 MG TABLET PO SCH (16:41)
[2024-08-13 17:23] VITALS: BP 154/58
== END 2024-08-13 19:16 | DRG 853 ==
LOC: ER 17:26 → 4TH 22:11 → 3RD-ICU 07-19 12:33 → 2ND 07-26 14:43
PROVIDERS: ADMIT Family Medicine; ATTEND Hospitalist
PROC: 3E033XZ Introduction of Vasopressor into Peripheral Vein, Percutaneous Approach (ICD-10-PCS; 2024-07-15)
PROC: 4A033R1 Measurement of Arterial Saturation, Peripheral, Percutaneous Approach (ICD-10-PCS; 2024-07-15)
PROC: 0JBQ0ZZ Excision of Right Foot Subcutaneous Tissue and Fascia, Open Approach (ICD-10-PCS; principal; 2024-07-24 09:00)
PROC: 0T9B70Z Drainage of Bladder with Drainage Device, Via Natural or Artificial Opening (ICD-10-PCS; 2024-08-06)
PROC: 5A1D70Z Performance of Urinary Filtration, Intermittent, Less than 6 Hours Per Day (ICD-10-PCS; 2024-08-10)
PROC: 0JH63XZ Insertion of Tunneled Vascular Access Device into Chest Subcutaneous Tissue and Fascia, Percutaneous Approach (ICD-10-PCS; 2024-08-10)
PROC: 02HV33Z Insertion of Infusion Device into Superior Vena Cava, Percutaneous Approach (ICD-10-PCS; 2024-08-10)
DX: A41.9 Sepsis, unspecified organism (principal); G92.8 Other toxic encephalopathy; I50.33 Acute on chronic diastolic (congestive) heart failure; R65.21 Severe sepsis with septic shock; N17.0 Acute kidney failure with tubular necrosis; J96.01 Acute respiratory failure with hypoxia; Z68.42 Body mass index [BMI] 45.0-49.9, adult; I48.21 Permanent atrial fibrillation; M86.171 Other acute osteomyelitis, right ankle and foot; I96 Gangrene, not elsewhere classified; F05 Delirium due to known physiological condition; N30.01 Acute cystitis with hematuria; E66.01 Morbid (severe) obesity due to excess calories; I11.0 Hypertensive heart disease with heart failure; L03.031 Cellulitis of right toe; M06.9 Rheumatoid arthritis, unspecified; E78.5 Hyperlipidemia, unspecified; E87.6 Hypokalemia; I27.20 Pulmonary hypertension, unspecified; D63.8 Anemia in other chronic diseases classified elsewhere; E83.39 Other disorders of phosphorus metabolism; E88.09 Other disorders of plasma-protein metabolism, not elsewhere classified; B95.2 Enterococcus as the cause of diseases classified elsewhere; B95.7 Other staphylococcus as the cause of diseases classified elsewhere; B96.20 Unspecified Escherichia coli [E. coli] as the cause of diseases classified elsewhere; Z23 Encounter for immunization; Z88.5 Allergy status to narcotic agent; Z11.52 Encounter for screening for COVID-19; Z79.01 Long term (current) use of anticoagulants; Z79.899 Other long term (current) drug therapy; Z90.710 Acquired absence of both cervix and uterus
CPT/HCPCS: 36415; 36600; 70450; 71045; 76000; 80048; 80053; 80069; 80202; 81001; 82043; 82435; 82550; 82570; 82805; 82947; 83520; 83735; 83880; 84100; 84132; 84145; 84156; 84300; 84550; 85025; 86021; 86038; 86140; 86160; 86704; 86706; 86803; 87040; 87070; 87075; 87077; 87086; 87088; 87186; 87205; 87324; 87340; 87804; 87807; 87811; 88304; 88312; 90471; 90732; 90935; 92610; 93306; 93925; 94640; 96365; 97110; 97112; 97161; 97165; 97530; 99285; C1752; J0290; J0360; J0690; J0692; J0696; J1171; J1200; J1450; J1644; J1650; J1940; J2003; J2020; J2250; J2405; J2704; J2919; J3010; J3475; J3480; J3590; J7030; J7040; J7050; J7060; J7613; J7644; P9047